=== PATIENT | female | born 1935 | race Asian ===

== ENCOUNTER 2024-08-10 18:55 | Inpatient (IN) | payer MEDICARE, MEDICAID, SELFPAY ==
[2024-08-10 19:35] VITALS: BP 116/71; PULSE 121; RESP 18; TEMP 36.6; O2SAT 98
[2024-08-10 19:37] VITALS: BMI 19.1
--- NOTE | 2024-08-10 20:05 | PD.EDRME ---
Rapid Medical Screening Exam RME Arrival date/time: 08/10/24 18:55 Chief Complaint: Weakness Time Seen by Provider: 08/10/24 19:50 Vital signs: Vital Signs Temperature 98 F 08/10/24 19:35 Pulse Rate 121 H 08/10/24 19:35 Respiratory Rate 18 08/10/24 19:35 Blood Pressure 116/71 08/10/24 19:35 Pulse Oximetry (%) 98 08/10/24 19:35 Oxygen Delivery Method Room Air 08/10/24 19:35 Vital signs reviewed by provider: Yes RME Narrative: 88-year-old female brought in by granddaughters for evaluation of generalized weakness x 5 days. She reports recent onset jaundice of skin and decreased eating over the last several months. Denies rectal bleeding and hematochezia. Patient currently lives at home with her and nephew. Patient's granddaughter states the family has discussed moving her to a care facility.
--- NOTE | 2024-08-10 20:07 | XR_ITS ---
Examination: PA lateral chest 2 views Technique: Upright PA lateral chest 2 views Exam date and time: August 10, 20242032 hrs. Indications: Weakness nausea today Findings: Significant parenchymal disease in the right middle lobe Normal heart size No pulmonary edema Mild hyperexpansion Impression: Significant parenchymal disease right middle lobe, consider pneumonia, pulmonary scarring, clinical correlation advised
[2024-08-10 20:31] LABS: Basophils % (Auto) 1 % (0-2.5); Eosinophils % (Auto) 1 % (0-10); Hematocrit 32.3 % (36.0-46.0); Hemoglobin 10.3 g/dL (12.0-16.0); Immature Granulocytes % (Auto) 1 % (0-0); Immature Granulocytes Auto 0.02 Thou/mm3 (0.00-0.00); Lymphocytes # (Auto) 0.9 Thou/mm3 (1.0-4.8); Lymphocytes % (Auto) 40 % (10-50); Mean Corpuscular HGB Conc 31.9 g/dl (31.0-37.0); Mean Corpuscular Hemoglobin 31.8 pg (25.0-35.0); Mean Corpuscular Volume 100 fL (80-100); Monocytes # (Auto) 0.1 Thou/mm3 (0.0-0.8); Monocytes % (Auto) 5 % (0-12); Neutrophils # (Auto) 1.2 Thou/mm3 (1.8-7.7); Neutrophils % (Auto) 53 % (37-80); Nucleated Red Blood Cell % 5 /100 WBC (0); RDW Standard Deviation 88.3 fL (36.4-46.3); Red Blood Count 3.24 Miln/mm3 (4.00-5.20)
[2024-08-10 20:34] LABS: Platelet Count 64 Thou/mm3 (140-440); White Blood Count 2.2 Thou/mm3 (3.6-11.0)
[2024-08-10 20:46] LABS: Partial Thromboplastin Time 25.2 Seconds (22.0-36.0); Prothrombin Time 11.2 Seconds (9.0-12.2)
[2024-08-10 20:56] LABS: B-Type Natriuretic Peptide 56 pg/mL (0-100)
[2024-08-10 21:00] LABS: Alanine Aminotransferase 20 U/L (10-49); Albumin, Serum 2.4 gm/dL (3.4-4.8); Albumin/Globulin Ratio 0.6 (1.2-2.2); Alkaline Phosphatase 67 U/L (46-116); Anion Gap 7 (7-16); Aspartate Amino Transferase 81 U/L (0-34); BUN/Creatinine Ratio 18 Ratio (12-20); Bilirubin,Total 0.6 mg/dL (0.3-1.2); Blood Urea Nitrogen 18 mg/dL (9-23); Calcium 8.2 mg/dL (8.3-10.6); Calcium (Corrected) 9.5 mg/dL (8.5-10.1); Carbon Dioxide 25.2 mMol/L (20.0-31.0); Chloride 107 mMol/L (98-107); Estimated Creatinine Clearance 27.8 mL/min (>60); Globulin 3.9 gm/dL (2.3-3.5); Glucose 89 mg/dL (74-106); Magnesium 2.3 mg/dL (1.6-2.6); Osmolality,Calculated 278 (275-295); Sodium 139 mMol/L (136-145); Total Protein 6.3 gm/dL (5.7-8.2); eGFR 55 See Note
[2024-08-10 21:03] LABS: Troponin I 0.046 ng/mL (0.0-0.045)
[2024-08-10 21:04] LABS: Slide Review Platelets confirmed
[2024-08-10 22:04] VITALS: BP 128/83; PULSE 82; RESP 18; TEMP 37.1; O2SAT 100
--- NOTE | 2024-08-10 22:26 | PD.EDWEAK ---
ED Weakness RME/HPI General Chief complaint: Weakness Stated complaint: weakness, nausea Time Seen by Provider: 08/10/24 19:50 Arrival date/time: 08/10/24 18:55 RME / HPI RME / HPI Narrative: 88-year-old female brought in by granddaughters for evaluation of generalized weakness x 5 days. She reports recent onset jaundice of skin and decreased eating over the last several months. Denies rectal bleeding and hematochezia. Patient currently lives at home with her and nephew. Patient's granddaughter states the family has discussed moving her to a care facility. ---- Dr. Chun's Main ED Evaluation: 88yo female with pmhx colon CA for over 10 years on Sunitinib Malate (unknown dose) BIB her granddaughter presents to the ED for a chief complaint of generalized weakness for the last two months. Granddaughter states the patient has had weakness for the last 2 months. She states she had outpatient labs done today, reporting she began having worsening generalized weakness and appeared more yellow than usual, so she came in for evaluation. Granddaughter endorses associated nausea, decreased appetite, and one episode of bright red loose stools on Saturday (08/08/24). She denies any abdominal pain, sweating, shortness of breath, palpitations, diarrhea, fever, headache, UTI symptoms, dizziness or any other associated symptoms. Denies any falls, injuries or loss of consciousness. Denies any tobacco or alcohol use. No known allergies. Related Data Home Medications ?Medication ?Instructions ?Recorded ?Confirmed nilotinib 200 mg capsule (Tasigna) 200 mg PO BID 12/20/21 04/03/24 Allergies Allergy/AdvReac Type Severity Reaction Status Date / Time No Known Allergies Allergy Verified 08/10/24 18:56 Review of Systems Review of Systems Systems Reviewed: All systems reviewed, normal except as documented Narrative Review of Systems: Gen: No fever, no chills, no weight loss, + decreased appetite EYES: No discharge, no visual changes, no pain HEENT: No ear pain, no congestion, no sore throat PULM: No shortness of breath, no cough, no congestion CV: No chest pain, no dyspnea on exertion, no palpitations GI: + nausea, no vomiting, no diarrhea, no pain, no constipation : No frequency, no urgency, no dysuria Musc/skel: No joint pain, no back pain Skin: No rash. Warm and dry. + jaundice Psyc: No hallucinations, no depression Heme/Lymph: No easy bleeding or bruising tendencies Neuro: + weakness, no headache ED Exam Narrative Physical exam: GEN. APPEARANCE: Patient is alert awake oriented to person and place under no distress, is cachetic and very debilitated. VITALS: All vitals were reviewed and the pulse ox is 100% on room air, which is normal according to my interpretation. HEENT: Normocephalic, atraumatic and nontender. Pupils are equal and reactive to light and accommodation. Oral mucosa are dry and pale. No icterus. NECK: Supple, nontender, no meningismus, no JVD. CHEST: Nontender on palpation, no deformity and no crepitus. CARDIOVASCULAR: Heart regular rhythm no murmur or gallop rub or extra beats; not tachycardic. LUNGS: Clear to auscultation bilaterally with symmetrical chest rise. No laboring tachypnea or wheezing. No intercostal subcostal retraction. No rales and no rhonchi. ABDOMEN: Soft, flat, nontender at all, no guarding or rebound tenderness. Questionable mass at the LUQ area, but there's no tenderness, guarding, rebound tenderness or distention. GENITALIA: Not examined. 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 Brownish watery stools, guaiac is strongly positive. EXTREMITIES: Nontender. No edema. No cyanosis. Patient is able to move all 4 extremities well. SKIN: Warm and dry, no rashes noted. MUSCULOSKELETAL: No lumbar or midline bony tenderness. There is no CVA tenderness. No paraspinal muscle spasm or tenderness. NEURO: Cranial nerves II through XII grossly intact. There is no focalization. GCS is 15. PSYCHIATRIC: Patient is in normal mood and affect, cooperative. LYMPHATICS: No major lymphadenopathy noted. Course Course Course Narrative: CXR is ordered for determining the etiology of weakness. Quality Measures none Orders Category Date Time Status Bedside COVID-19 Antigen Test NOW Care 08/10/24 20:56 Active Bedside Influenza A&B Antigen Test NOW Care 08/10/24 20:56 Completed EKG (ED ONLY) *Do not use* NOW Care 08/10/24 20:07 Completed Melissa [Urinary Catheter] QS Care 08/10/24 23:44 Active EKG (ED Only) Stat Exams 08/10/24 20:07 Ordered XR chest 2V Stat Exams 08/10/24 20:07 Completed B-Type Natriuretic Peptide Stat Lab 08/10/24 20:23 Completed CBC Stat Lab 08/10/24 20:23 Completed Comprehensive Metabolic Panel Stat Lab 08/10/24 20:23 Completed Drug Screen,Urine Stat Lab 08/10/24 23:43 Completed Magnesium Stat Lab 08/10/24 20:23 Completed Occult Blood, Stool (LAB) Stat Lab 08/10/24 23:06 Completed Partial Thromboplastin Time Stat Lab 08/10/24 20:23 Completed Prothrombin Time with INR Stat Lab 08/10/24 20:23 Completed Troponin I Stat Lab 08/10/24 20:23 Completed Urinalysis Stat Lab 08/10/24 23:48 Completed Vital Signs Vital signs: Vital Signs Temperature 98 F 08/10/24 19:35 Pulse Rate 121 H 08/10/24 19:35 Respiratory Rate 18 08/10/24 19:35 Blood Pressure 116/71 08/10/24 19:35 Pulse Oximetry (%) 98 08/10/24 19:35 Oxygen Delivery Method Room Air 08/10/24 19:35 Procedures -ED EKG Interpretation #1: Date of EK08/10/24 Rate: 138 Interpretation: Interpreted by me EKG Impression: Normal axis, Atrial fibrillation and Non-specific ST-T Additional EKG comment: A-fib with RVR. This EKG, compared with her previous ones, shows a new onset atrial fibrillation which was not present in the past. Weakness MDM Narrative MDM Narrative:: Scribe Attestation: 08/10/24 - Hui Brooke am scribing for and in the presence of Dr. Chun. Patient was brought in by her granddaughter, who is a RN here in our emergency room, stating that her grandma passed bright red blood from her rectum 2 days ago once only. She also says that her grandmother is very weak for the last 2 months on and off has been in the emergency room but never admitted to the hospital yet. Otherwise, the patient denies any chest pain or chest palpitations and no sweating or shortness of breath. She was nauseated earlier but no vomiting or diarrhea. There was no melena. She denies any fever chills or any abdominal pain. She denies any headache or dizziness. She denies UTI symptoms. She denies any fall or injuries or loss of consciousness. Patient has past medical history of anemia and history of colon cancer for over 10 years. She is on some kind of an oral chemotherapy as a maintenance dose. Patient is not on blood thinners. She did have blood transfusion in the recent past. Looking at her old records, patient was here on 07/27/2024 the last time and her troponin at that time was 0.038; today, her troponin is 0.046 but her EKG shows that she is in A-fib with RVR, which is new compared to her old records. 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 Provider Notation: Although this document has been carefully reviewed, there may still be some phonetic and other typographical errors. These errors are purely grammatical due to imperfections in the software program and should not be construed in any way to compromise the substance of the patient's medical care during this visit. Patient data External records reviewed:: [facility] previous records (Per chart review, patient was seen here on 07/27/24 for anemia) Clinical information provided by:: family (history obtained by the patient's granddaughter) Social determinants that could affect healthcare access:: none Patient has the following chronic illnesses:: colon CA, gastric malignancy s/p chemotherapy with oncological f/u at [facility] How is presenting disease/condition affected by chronic disease/condition?: exacerbated by Evaluation data The following diagnostics were reviewed and interpreted by me:: lab results, radiology exam(s) and EKG tracing(s) Lab and/or radiology exams considered but not ordered:: none Interpretation Summary: See above under MDM narrative. ---- [facility] Report Signed Patient: AJCOBO MCNEAL [facility]. Record#: [id number] Birthdate: 1935 Age/Sex: 88 / F Location: [facility] Attending Dr: Ordering Physician: Wesley Perez PA-C Date of Service: 08/10/24 Procedure(s): XR chest 2V Accession Number(s): [id number] cc: Wesley Perez PA-C; Ruddy Britton MD; NO PRIMARY/FAMILY,PHYSICIAN~ Examination: PA lateral chest 2 views Technique: Upright PA lateral chest 2 views Exam date and time: August 10, 2024 2033 hrs. Indications: Weakness nausea today Findings: Significant parenchymal disease in the right middle lobe Normal heart size No pulmonary edema Mild hyperexpansion Impression: Significant parenchymal disease right middle lobe, consider pneumonia, pulmonary scarring, clinical correlation advised Dictated By: Ruddy Britton MD Signed By: <Electronically signed by Ruddy Britton MD in OV> 08/10/242123 Medications / Prescriptions Medications or Prescriptions considered but not ordered:: none Medication administrations:: none Consultations Consultation(s) initiated? (list below): Yes Diagnosis Weakness Differential Diagnosis: other (abdominal tumor, colon CA, stomach CA, GI bleed, new onset aFib) Most likely diagnosis given after review of the tests above:: see below Admission Indicated Admission indicated?: indicated Admission Request Was there a request for admission?: Yes Admission Attestation Admission request attestation: Discussed case with [] from Hospitalist service regarding admission. Discussed patients ED course, exam findings, labs, and radiology results. The Hospitalist [agrees,declines] to accept the patient for admission. Disposition Plan Disposition Plan: Admit Critical Care Time Critical Care Time Critical Care Time: Yes Total Critical Care Time (min.): 45 Attestation: The high probability of sudden, clinically significant deterioration in the patient?s condition required the highest level of my preparedness to intervene urgently. The services I provided to this patient were to treat and/or prevent clinically significant deterioration. Services included the following: chart data review, reviewing nursing notes and/or old charts, documentation time, customer care voice consultant collaboration regarding findings and treatment options, medication orders and management, direct patient care, vital sign assessments and ordering, interpreting and reviewing diagnostic studies and lab tests. Aggregate critical care time includes only time during which I was engaged in work directly related to the patient?s care, as described above, whether at bedside or elsewhere in the Emergency Department. It did not include time spent performing other reported procedures or the services of residents, students, nurses or physician assistants. Discharge Plan Prescriptions/Referrals Prescriptions/Med Rec: No Action Tasigna 200 mg Capsule 200 mg PO BID Referrals: No Primary/Family,Physician [Primary Care Provider] - In 1 week Problem List Clinical Impression: Gastrointestinal bleeding, lower, Thrombocytopenia, Leukopenia, Atrial fibrillation with RVR, Atrial fibrillation, new onset Patient/Caregiver Discharge Instructions Print Language: Vietnamese
[2024-08-10 23:44] VITALS: BP 129/84; PULSE 114; RESP 19; TEMP 36.8; O2SAT 97
[2024-08-10 23:45] LABS: OBS Card Lot # 23001; OBS Performed By dotek; OBS QC OK? Yes; Occult Blood, Stool Positive (Negative)
[2024-08-10 23:47] LABS: OBS Developer Lot # 23003
[2024-08-10 23:48] VITALS: BP 121/77; PULSE 96; RESP 16; O2SAT 97
[2024-08-10 23:58] LABS: Collection Type, Urine Clean Catch
[2024-08-11] VITALS (21 sets, daily range): BP systolic 94–157; BP diastolic 49–96; PULSE 68–97; RESP 16–19; TEMP 36.2–37.1; O2SAT 95–100; BMI 19.2
[2024-08-11 00:03] LABS: Bilirubin,Urine Negative (Negative); Blood,Urine Negative (Negative); Clarity,Urine Clear (Clear/Hazy); Color,Urine Drk-Yellow (Lt Yel-Yel); Glucose, Urine Negative (Negative); Hyaline Casts,Urine < 1 /hpf (0-1); Ketones,Urine Negative (Negative); Leukocyte Esterase,Urine Negative (Negative); Nitrite,Urine Negative (Negative); Protein,Urine Trace (Neg - Trace); RBC,Urine 3 /hpf (0-3); Specific Gravity,Urine 1.023 (1.001-1.035); Squamous Epithelial Cell,Urine < 1 /hpf (0-5); WBC,Urine 2 /hpf (0-5)
[2024-08-11 00:09] LABS: Amphetamine/Methamp Scrn,U Negative (Negative); Barbiturate Screen,Urine Negative (Negative); Benzodiazepines Screen,Urine Negative (Negative); Benzoylecgonine Screen, Ur Negative (Negative); Fentanyl Screen,Urine Negative (Negative); Opiate Screen,Urine Negative (Negative); THC Screen,Urine Negative (Negative)
--- NOTE | 2024-08-11 02:24 | ESHP_ITS ---
<Statement entered by Gerardo Meza MD - 08/11/24 09:12> I was present for the essential components of the history, physical examination, diagnosis, and treatment plan with the resident. I have reviewed the documentation, discussed the case with the resident and agree with the patient's care as documented by the resident. High risk complex - 75 mins. Gerardo Meza MD Documentation for date of: 08/11/24 HPI History of Present Illness History of present illness: Stefani Harris is a Tagalog-speaking 88-year-old female with a past medical history of gastric cancer status post partial gastrectomy and currently on sunitinib malate chemotherapy (previously on nilotinib) who presents to the ED for bright red blood per rectum. Son present at bedside to help provide additional history and translate. A few days ago [id number] noticed bright red blood in stool while caring for patient, and was only reported incident. Patient has had multiple ED visits within the last few months for abnormal hemoglobin levels but no reported episodes of hematochezia or melena. Otherwise, patient noted to have generalized weakness and decreased appetite. Per son, patient's diet consist mostly of Ensure. In ED, hemoglobin noted to be 10.3 and FOBT positive. Given that in-house engine cleaner will not be present until , efforts for transfer were initiated by family declined. Spoke to son at bedside and discussed options, shows that transfer would allow patient to have colonoscopy sooner and if decision was made to stay then soonest colonoscopy would be on and until then patient will be monitored. Son understood options and decided to stay until in-house engine cleaner can evaluate patient. ED course: HR 121 -> 89, otherwise vitals stable Hemoglobin stable, 10.3 (within last ~3 months, average hgb 8-9). Troponin 0.046, will trend. AST mildly elevated, 81. CXR: Significant parenchymal disease in right middle lobe PMHx: gastric cancer Medications: sunitinib malate SHx: denies smoking, alcohol, illicit drug use PSHx: partial gastrectomy Review of Systems Review of Systems Systems Reviewed: All systems reviewed, normal except as documented Exam Vital Signs Temp Pulse Resp BP Pulse Ox O2 Del Method 98.3 F 89 16 128/67 98 Room Air 08/10/24 23:44 08/11/24 02:00 08/11/24 02:00 08/11/24 02:00 08/11/24 02:00 08/10/24 23:44 Narrative Exam General: AOx3, no acute distress, able to speak full sentences HEENT: NC/AT, mucous membranes moist, bilateral sclera anicteric Cardiovascular: regular rate and rhythm, S1/S2 present, no murmurs appreciated Pulmonary: clear to auscultation bilaterally, no rales/rhonchi/wheezes Abdominal: soft, non-tender, non-distended, no rebound/guarding, normal bowel sounds present Musculoskeletal: normal ROM, no peripheral edema Skin: warm and dry, intact, no rashes Neuro: CN II-XII intact, no focal deficits Results: Labs 08/11/24 03:20 08/11/24 03:20 Labs: Short CBC 08/10/24 Range/Units 20:23 WBC 2.2 L (3.6-11.0) Thou/mm3 Hgb 10.3 L (12.0-16.0) g/dL Hct 32.3 L (36.0-46.0) % Plt Count 64 L (140-440) Thou/mm3 BMP 08/10/24 20:23 Sodium 139 Potassium 4.0 Chloride 107 Carbon Dioxide 25.2 BUN 18 Creatinine 1.0 Glucose 89 Calcium 8.2 L Cardiac Enzymes 08/10/24 Range/Units 20:23 Troponin I 0.046 H* (0.0-0.045) ng/mL Liver Function 08/10/24 Range/Units 20:23 Total Bilirubin 0.6 (0.3-1.2) mg/dL AST 81 H (0-34) U/L ALT 20 (10-49) U/L Alkaline Phosphatase 67 (46-116) U/L Albumin 2.4 L (3.4-4.8) gm/dL Urine 08/10/24 Range/Units 23:48 Urine Color Drk-Yellow A (Lt Yel-Yel) Urine Clarity Clear (Clear/Hazy) Urine pH 6.0 (5.0-7.0) Ur Specific [place] 1.023 (1.001-1.035) Urine Protein Trace (Neg - Trace) Urine Glucose (UA) Negative (Negative) Quality Measures Quality Measures none Advance care planning discussed with:: patient Medications Home Medications and Allergies Home Medications ?Medication ?Instructions ?Recorded ?Confirmed ?Type nilotinib 200 mg capsule (Tasigna) 200 mg PO BID 12/20/21 08/11/24 History Allergies Allergy/AdvReac Type Severity Reaction Status Date / Time No Known Allergies Allergy Verified 08/10/24 18:56 Visit Medications Acetaminophen (Acetaminophen 325 Mg Tablet) 650 mg PO Q6H PRN PRN Reason: PAIN OR FEVER > 101 Stop: 09/10/24 02:09 Sodium Chloride (Ns) 1,000 mls @ 75 mls/hr IV .[id number] ONE Stop: 08/11/24 15:31 Ondansetron HCl (Ondansetron Inj 2 Mg/Ml Inj 2 Ml) 4 mg IV Q6H PRN; Protocol PRN Reason: NAUSEA OR VOMITING Stop: 09/10/24 02:09 Pantoprazole Sodium (Pantoprazole Inj 40 Mg Vial) 40 mg IVP Q12HR LAKESHA Stop: 09/10/24 08:59 Assessment & Plan Plan Stefani Harris is a Tagalog-speaking 88-year-old female with a past medical history of gastric cancer status post partial gastrectomy and currently on sunitinib malate chemotherapy (previously on nilotinib) who is admitted for management and work-up for GI bleed. #GI bleed, upper versus lower #Normocytic anemia, chronic Presents with 1 episode of bright red blood in stool setting of chronic anemia and generalized weakness. Initial hemoglobin 10.5, downtrending to 9.2. FOBT positive. ? GI consulted, appreciate recommendations ? Will be back 08/13, family understands ? N.p.o. now ? Pending speech swallow screen ? Dietitian referral given decreased p.o. intake ? Monitor H&H ? Pantoprazole 40 mg IV twice daily #Elevated troponins #NSTEMI type II, demand ischemia Initial troponin 0.046 -> 0.049, likely due to chronic anemia. ? Trend troponins #Atrial fibrillation, new onset No history of atrial fibrillation, [id number] 3. Will defer anticoagulation given GI bleed. #History of gastric cancer #Leukopenia #Thrombocytopenia Per son, patient currently takes sunitinib malate and previously on nilotinib (Tasigna). Pending med rec. Hospital management: Disposition: 2-3 hospital nights Fluids: NS at 75 mL/hr Diet: NPO, pending speech swallow evaluation Lines: peripheral DVT prophylaxis: SCDs GI prophylaxis: pantoprazole 40 mg IV BID CODE STATUS: full code ----- Plan discussed with attending physician Dr. Derrick Leal MD PGY-1 Internal Medicine
[2024-08-11] MEDS: SODIUM CHLORIDE 0.9% 1000 ML 1,000 ML 75 ML IV (02:50)
[2024-08-11 03:31] LABS: Basophils % (Auto) 0 % (0-2.5); Eosinophils % (Auto) 1 % (0-10); Hematocrit 27.6 % (36.0-46.0); Hemoglobin 9.2 g/dL (12.0-16.0); Immature Granulocytes % (Auto) 2 % (0-0); Immature Granulocytes Auto 0.05 Thou/mm3 (0.00-0.00); Lymphocytes # (Auto) 1.2 Thou/mm3 (1.0-4.8); Lymphocytes % (Auto) 46 % (10-50); Mean Corpuscular HGB Conc 33.3 g/dl (31.0-37.0); Mean Corpuscular Hemoglobin 32.9 pg (25.0-35.0); Mean Corpuscular Volume 99 fL (80-100); Monocytes # (Auto) 0.2 Thou/mm3 (0.0-0.8); Monocytes % (Auto) 6 % (0-12); Neutrophils # (Auto) 1.1 Thou/mm3 (1.8-7.7); Neutrophils % (Auto) 45 % (37-80); Nucleated Red Blood Cell % 4 /100 WBC (0)
[2024-08-11 03:33] LABS: Platelet Count 50 Thou/mm3 (140-440); White Blood Count 2.5 Thou/mm3 (3.6-11.0)
[2024-08-11 03:52] LABS: Alanine Aminotransferase 17 U/L (10-49); Albumin, Serum 2.2 gm/dL (3.4-4.8); Albumin/Globulin Ratio 0.6 (1.2-2.2); Alkaline Phosphatase 61 U/L (46-116); Anion Gap 2 (7-16); Aspartate Amino Transferase 66 U/L (0-34); BUN/Creatinine Ratio 19 Ratio (12-20); Bilirubin,Total 0.6 mg/dL (0.3-1.2); Blood Urea Nitrogen 19 mg/dL (9-23); Calcium (Corrected) 9.4 mg/dL (8.5-10.1); Carbon Dioxide 29.5 mMol/L (20.0-31.0); Chloride 108 mMol/L (98-107); Estimated Creatinine Clearance 27.8 mL/min (>60); Globulin 3.5 gm/dL (2.3-3.5); Glucose 76 mg/dL (74-106); Magnesium 2.3 mg/dL (1.6-2.6); Osmolality,Calculated 278 (275-295); Phosphorous 3.1 mg/dL (2.4-5.1); Sodium 139 mMol/L (136-145); Total Protein 5.7 gm/dL (5.7-8.2); eGFR 55 See Note
[2024-08-11 03:53] LABS: Troponin I 0.049 ng/mL (0.0-0.045)
--- NOTE | 2024-08-11 10:43 | PCS.ST ---
Swallow Evaluation completed in the ED. See report for details. Functional delgado-pharyngeal swallow. Baseline soft diet per pt/family. No further ST services warranted at this time.
[2024-08-11 11:51] LABS: Troponin I 0.043 ng/mL (0.0-0.045)
[2024-08-11] MEDS: PANTOPRAZOLE INJ 40 MG VIAL IVP ×2 (12:45→20:11)
[2024-08-11 14:20] LABS: Hematocrit 28.4 % (36.0-46.0); Hemoglobin 9.4 g/dL (12.0-16.0)
--- NOTE | 2024-08-11 15:32 | PC.CC ---
Pt Stefani Harris is an 88 yr old female, admitted to hospitalist services for GI bleed. PEDIATRICIAN MANAGING [employer] CC met with pt at bedside. At time of encounter pts daughter Angie Harris [phone], is at bedside and provided pts hx. Pt is noted to be alert and oriented. Pt daughter expressed understanding admission orders and plan of care. Pts daughter able to confirm demographic information. Pt is from home [id number], where she lives with her spouse. Pts children Daughter Angie and son Luis Harris [phone] are surrogate DMs. At baseline pt is independent with ambulation and ADLS. Due to weakness at this time pt has been requiring assist with both ambulation and ADLs. Pt is not diabetic and is not on dialysis. Pt does not require supplemental O2. Pt is followed by Dr. Gopal Dawson for primary care. Pt is followed by oncologist at [facility]. Per daughter at time of D/c pt will return home with family transporting. Plan is for pt to D/c to her son's residence. PEDIATRICIAN MANAGING [employer] CC did not discuss Advance Directive at this time.
--- NOTE | 2024-08-11 17:45 | ESPR_ITS ---
<Statement entered by Joaquin Zambrano MD - 08/11/24 18:29> Senior Resident Attestation: I supervised/discussed management plan with product management internship physician Dr. Vu, and was involved in the care of this patient. I personally saw and examined the patient and discussed the assessment and plan with the entire medicine team, including my attending. I agree with the assessment and plan as documented. Patient's care was discussed with attending physician, Dr. Ashley. Joaquin Zambrano MD PGY-2. Documentation for date of: 08/11/24 Subjective Subjective Interval history: 08/11: Patient is an overnight admission. Patient is seen and examined at at bedside. Patient's [place] language is TagUnfold Patient seems a bit confused, although translation services were used however patient appeared to be very confused to why she was in the hospital. She stated that her children dropped her off and she has no idea why. Patient denied any chest pain shortness of breath, nausea, vomiting, abdominal pain. Patient had no complaints. Exam Vital Signs Temp Pulse Resp BP Pulse Ox O2 Del Method 98.7 F 76 17 107/64 99 Room Air 08/11/24 17:31 08/11/24 17:31 08/11/24 17:31 08/11/24 17:31 08/11/24 17:31 08/11/24 17:31 Narrative Exam GENERAL: A&Ox3 . Awake, Not in acute distress NEURO: belt cutter grossly intact, moves extremities x4 HEENT: Atraumatic, Normocephalic. mucous membranes moist. Eyes open, symmetrical, & clear HEART: Normal Heart Sounds LUNGS: Clear to auscultation with no wheezing or crackles. ABDOMEN: soft, non-distended, non-tender, bowel sounds heard, no guarding or rebound tenderness SKIN: No Rash or ecchymoses EXTREMITIES: No edema, tenderness, able to move all 4 extremities, pedal pulses palpated Objective Labs 08/13/24 04:50 08/13/24 04:50 Labs: Laboratory Results - last 24 hr 08/10/24 08/10/24 08/10/24 20:23 23:06 23:43 WBC 2.2 L RBC 3.24 L Hgb 10.3 L Hct 32.3 L MCV 100 MCH 31.8 MCHC 31.9 RDW Std Deviation 88.3 H Plt Count 64 L Neut % (Auto) 53 Lymph % (Auto) 40 [place] % (Auto) 5 Eos % (Auto) 1 Baso % (Auto) 1 Neut # (Auto) 1.2 L Lymph # (Auto) 0.9 L [place] # (Auto) 0.1 Eos # (Auto) 0.0 Baso # (Auto) 0.0 Immature Gran # (Auto) 0.02 H Absolute Nucleated RBC 0.10 H Immature Gran % 1 H Nucleated RBC % 5 H PT 11.2 INR 1.0 APTT 25.2 Sodium 139 Potassium 4.0 Chloride 107 Carbon Dioxide 25.2 Anion Gap 7 BUN 18 Creatinine 1.0 Estim Creat Clear Calc 27.8 L eGFR 55 L BUN/Creatinine Ratio 18 Glucose 89 Calculated Osmolality 278 Calcium 8.2 L Corrected Calcium 9.5 Phosphorus Magnesium 2.3 Total Bilirubin 0.6 AST 81 H ALT 20 Alkaline Phosphatase 67 Troponin I 0.046 H* B-Natriuretic Peptide 56 Total Protein 6.3 Albumin 2.4 L Globulin 3.9 H Albumin/Globulin Ratio 0.6 L Ur Collection Type Urine Color Urine Clarity Urine pH Ur Specific [place] Urine Protein Urine Glucose (UA) Urine Ketones Urine Blood Urine Nitrite Urine Bilirubin Urine Urobilinogen (Auto) Ur Leukocyte Esterase Urine RBC Urine WBC Ur Squamous Epith Cells Urine Bacteria Hyaline Casts Stool Occult Blood Positive A Urine Opiates Screen Negative Urine Fentanyl Screen Negative Ur Barbiturates Screen Negative U Amphetamin/Meth Scrn Negative U Benzodiazepines Scrn Negative U Cocaine Metab Screen Negative U Marijuana (THC) Screen Negative Misc Test Result Platelets confirmed 08/10/24 08/11/24 08/11/24 23:48 03:20 10:56 WBC 2.5 L RBC 2.80 L Hgb 9.2 L Hct 27.6 L MCV 99 MCH 32.9 MCHC 33.3 RDW Std Deviation 87.0 H Plt Count 50 L D Neut % (Auto) 45 Lymph % (Auto) 46 [place] % (Auto) 6 Eos % (Auto) 1 Baso % (Auto) 0 Neut # (Auto) 1.1 L Lymph # (Auto) 1.2 [place] # (Auto) 0.2 Eos # (Auto) 0.0 Baso # (Auto) 0.0 Immature Gran # (Auto) 0.05 H Absolute Nucleated RBC 0.10 H Immature Gran % 2 H Nucleated RBC % 4 H PT INR APTT Sodium 139 Potassium 4.0 Chloride 108 H Carbon Dioxide 29.5 Anion Gap 2 L BUN 19 Creatinine 1.0 Estim Creat Clear Calc 27.8 L eGFR 55 L BUN/Creatinine Ratio 19 Glucose 76 Calculated Osmolality 278 Calcium 8.0 L Corrected Calcium 9.4 Phosphorus 3.1 Magnesium 2.3 Total Bilirubin 0.6 AST 66 H ALT 17 Alkaline Phosphatase 61 Troponin I 0.049 H* 0.043 B-Natriuretic Peptide Total Protein 5.7 Albumin 2.2 L Globulin 3.5 Albumin/Globulin Ratio 0.6 L Ur Collection Type Clean Catch Urine Color Drk-Yellow A Urine Clarity Clear Urine pH 6.0 Ur Specific [place] 1.023 Urine Protein Trace Urine Glucose (UA) Negative Urine Ketones Negative Urine Blood Negative Urine Nitrite Negative Urine Bilirubin Negative Urine Urobilinogen (Auto) 2.0 Ur Leukocyte Esterase Negative Urine RBC 3 Urine WBC 2 Ur Squamous Epith Cells < 1 Urine Bacteria None Hyaline Casts < 1 Stool Occult Blood Urine Opiates Screen Urine Fentanyl Screen Ur Barbiturates Screen U Amphetamin/Meth Scrn U Benzodiazepines Scrn U Cocaine Metab Screen U Marijuana (THC) Screen Misc Test Result 08/11/24 14:08 WBC RBC Hgb 9.4 L Hct 28.4 L MCV MCH MCHC RDW Std Deviation Plt Count Neut % (Auto) Lymph % (Auto) [place] % (Auto) Eos % (Auto) Baso % (Auto) Neut # (Auto) Lymph # (Auto) [place] # (Auto) Eos # (Auto) Baso # (Auto) Immature Gran # (Auto) Absolute Nucleated RBC Immature Gran % Nucleated RBC % PT INR APTT Sodium Potassium Chloride Carbon Dioxide Anion Gap BUN Creatinine Estim Creat Clear Calc eGFR BUN/Creatinine Ratio Glucose Calculated Osmolality Calcium Corrected Calcium Phosphorus Magnesium Total Bilirubin AST ALT Alkaline Phosphatase Troponin I B-Natriuretic Peptide Total Protein Albumin Globulin Albumin/Globulin Ratio Ur Collection Type Urine Color Urine Clarity Urine pH Ur Specific [place] Urine Protein Urine Glucose (UA) Urine Ketones Urine Blood Urine Nitrite Urine Bilirubin Urine Urobilinogen (Auto) Ur Leukocyte Esterase Urine RBC Urine WBC Ur Squamous Epith Cells Urine Bacteria Hyaline Casts Stool Occult Blood Urine Opiates Screen Urine Fentanyl Screen Ur Barbiturates Screen U Amphetamin/Meth Scrn U Benzodiazepines Scrn U Cocaine Metab Screen U Marijuana (THC) Screen Misc Test Result Quality Measures Quality Measures none Advance care planning discussed with:: other Assessment & Plan Assessment Current Active Medications: Generic Name Dose Route Start Last Admin Trade Name Priyanka PRN Reason Stop Dose Admin Acetaminophen 650 mg 08/11/24 02:10 Acetaminophen 325 Mg Tablet PO 09/10/24 02:09 Q6H PRN PAIN OR FEVER > 101 Ondansetron HCl 4 mg 08/11/24 02:10 Ondansetron Inj 2 Mg/Ml Inj 2 Ml IV 09/10/24 02:09 Q6H PRN NAUSEA OR VOMITING Protocol Pantoprazole Sodium 40 mg 08/11/24 09:00 08/11/24 12:45 Pantoprazole Inj 40 Mg Vial IVP 09/10/24 08:59 40 mg Q12HR LAKESHA Administration Plan Ms. Harris is a Tagalog-speaking 88-year-old female with a past medical history of gastric cancer status post partial gastrectomy and currently on sunitinib malate chemotherapy (previously on nilotinib) who presents to the ED for bright red blood per rectum for 2 days with generalized weakness and decreased appetite. # Symptomatic anemia #GI bleed, likely lower -Presents with 1 episode of bright red blood in stool setting of chronic anemia and generalized weakness. -Initial hemoglobin 10.5, downtrending to 9.2. -FOBT positive. Plan: ? GI consulted, appreciate recommendations? Will be back 08/13, family understands ? Dysphagia 2 diet? After pending speech swallow screen ? Dietitian referral given decreased p.o. intake ? Monitor H&H ? Pantoprazole 40 mg IV twice daily #Elevated troponins #NSTEMI type II, demand ischemia Initial troponin 0.046 -> 0.049, likely due to chronic anemia. ? Trend troponins #Atrial fibrillation, new onset No history of atrial fibrillation, [id number] 3. Will defer anticoagulation given GI bleed. #History of gastric cancer #Leukopenia #Thrombocytopenia Per son, patient currently takes sunitinib malate and previously on nilotinib (Tasigna). -Continue medications Hospital management: Disposition: 2-3 hospital nights Fluids: NS at 75 mL/hr Diet: Dysphagia2, after pending speech swallow screen Lines: peripheral DVT prophylaxis: SCDs GI prophylaxis: pantoprazole 40 mg IV BID CODE STATUS: full code Assessment and plan discussed with my senior resident Dr. Zambrano & attending physician Dr. Gabi Vu (PGY-1)- Internal medicine resident Attending Provider Attestation/Addendum 88-year-old female with history of gastric adenocarcinoma status post partial gastrectomy and currently on sunitinib chemotherapy who presented to the ER with complaints of generalized weakness and bright red blood per rectum found to have symptomatic anemia. Workup including FOBT was positive and patient also noted to have elevated troponin that is deemed to be NSTEMI type II secondary to demand ischemia and also new onset A-fib rate controlled however unable to anticoagulate at this now. Plan to continue monitoring pending GI input. I reviewed above note and agree with findings and plans. I have also personally examined the patient with medicine team and went over assessment and plan with medical team including product management internship and resident physician.
--- NOTE | 2024-08-11 18:21 | PC.NURSE ---
FAMILY WOULD LIKE HER ONCOLOGIST CALLED TO FOR HX REPORT AND TO BE AWARE OF HOSPITALIZATION. DR BOWEN ONCOLOGIST [facility] [phone]
[2024-08-11 19:33] LABS: Troponin I 0.041 ng/mL (0.0-0.045)
[2024-08-11 22:00] LABS: Hematocrit 25.4 % (36.0-46.0); Hemoglobin 8.4 g/dL (12.0-16.0)
[2024-08-12] VITALS: BP 117/72; PULSE 79; PULSE 90; RESP 18; TEMP 37.3; O2SAT 95
[2024-08-12 04:00] VITALS: BP 108/77; PULSE 72; PULSE 81; RESP 16; TEMP 36.1; O2SAT 96
[2024-08-12 05:34] LABS: Basophils % (Auto) 1 % (0-2.5); Eosinophils % (Auto) 2 % (0-10); Hematocrit 25.2 % (36.0-46.0); Immature Granulocytes % (Auto) 1 % (0-0); Immature Granulocytes Auto 0.01 Thou/mm3 (0.00-0.00); Lymphocytes # (Auto) 0.8 Thou/mm3 (1.0-4.8); Lymphocytes % (Auto) 40 % (10-50); Mean Corpuscular HGB Conc 32.5 g/dl (31.0-37.0); Mean Corpuscular Hemoglobin 32.3 pg (25.0-35.0); Mean Corpuscular Volume 99 fL (80-100); Monocytes # (Auto) 0.1 Thou/mm3 (0.0-0.8); Monocytes % (Auto) 5 % (0-12); Neutrophils # (Auto) 1.1 Thou/mm3 (1.8-7.7); Neutrophils % (Auto) 53 % (37-80); Nucleated Red Blood Cell # 0.08 Thou/mm3 (0.00-0.00); Nucleated Red Blood Cell % 4 /100 WBC (0); RDW Standard Deviation 87.1 fL (36.4-46.3); Red Blood Count 2.54 Miln/mm3 (4.00-5.20)
[2024-08-12 05:35] LABS: Hemoglobin 8.2 g/dL (12.0-16.0); Platelet Count 55 Thou/mm3 (140-440)
[2024-08-12 06:00] VITALS: BMI 17.1
[2024-08-12 06:16] LABS: Slide Review Platelets confirmed
[2024-08-12 06:42] LABS: Alanine Aminotransferase 13 U/L (10-49); Albumin, Serum 1.8 gm/dL (3.4-4.8); Albumin/Globulin Ratio 0.6 (1.2-2.2); Alkaline Phosphatase 55 U/L (46-116); Anion Gap 5 (7-16); Aspartate Amino Transferase 54 U/L (0-34); BUN/Creatinine Ratio 19 Ratio (12-20); Bilirubin,Total 0.5 mg/dL (0.3-1.2); Blood Urea Nitrogen 15 mg/dL (9-23); Calcium 7.5 mg/dL (8.3-10.6); Calcium (Corrected) 9.3 mg/dL (8.5-10.1); Carbon Dioxide 26.3 mMol/L (20.0-31.0); Chloride 111 mMol/L (98-107); Creatinine (Component) 0.8 mg/dL (0.6-1.3); Estimated Creatinine Clearance 30.9 mL/min (>60); Glucose 76 mg/dL (74-106); Osmolality,Calculated 282 (275-295); Potassium 3.9 mMol/L (3.4-5.1); Sodium 142 mMol/L (136-145); Total Protein 4.8 gm/dL (5.7-8.2); eGFR > 60 See Note
[2024-08-12 08:00] VITALS: BP 94/61; PULSE 72; PULSE 80; RESP 15; TEMP 37.2; O2SAT 96
[2024-08-12] MEDS: PANTOPRAZOLE INJ 40 MG VIAL IVP ×2 (08:59→20:28)
[2024-08-12] MEDS: SUNITINIB PO (09:00)
--- NOTE | 2024-08-12 11:50 | PC.NURSE ---
Dr. Vu aware that pt. family notified RN that pt. oncologist at [facility] wants to speak to care team here. Dr. vu provided with DrLou info per nurses note from ER. Dr. Vu states I will call this oncologist.
[2024-08-12 12:00] VITALS: BP 106/66; PULSE 68; PULSE 82; RESP 19; TEMP 37.3; O2SAT 97
--- NOTE | 2024-08-12 14:27 | PC.SS ---
Rounding note: pending Dr. Ledesma recommendations.
[2024-08-12 14:34] LABS: Hematocrit 25.4 % (36.0-46.0)
[2024-08-12 14:36] LABS: Hemoglobin 8.1 g/dL (12.0-16.0)
--- NOTE | 2024-08-12 14:49 | ESPR_ITS ---
<Statement entered by Joaquin Zambrano MD - 08/12/24 17:22> Senior Resident Attestation: I supervised/discussed management plan with internal review and audit compliance physician Dr. Vu, and was involved in the care of this patient. I personally saw and examined the patient and discussed the assessment and plan with the entire medicine team, including my attending. I agree with the assessment and plan as documented. Patient's care was discussed with attending physician, Dr. Ashley. Joaquin Zambrano MD PGY-2. Documentation for date of: 08/12/24 Subjective Subjective Interval history: 08/11: Patient is an overnight admission. Patient is seen and examined at at bedside. Patient's [place] language is Tag[place] Patient seems a bit confused, although translation services were used however patient appeared to be very confused to why she was in the hospital. She stated that her children dropped her off and she has no idea why. Patient denied any chest pain shortness of breath, nausea, vomiting, abdominal pain. Patient had no complaints. 08/12: No overnight events, patient is seen and examined at bedside. Patient seems to be more alert and less confused today. She continues to deny any complaints and knowledge of why she is in the hospital. Patient denies any chest pain or abdominal pain nausea or vomiting. Patient only had less than 5% of her breakfast and she says that she always only takes couple bites of her breakfast because she does not have an appetite. Patient did say that she also takes couple sips of the Ensure that her son brought for her. Patient states that her eyes are itchy and she has been scratching it which causes redness to her eyes. Patient has no other complaints Exam Vital Signs Temp Pulse Resp BP Pulse Ox O2 Del Method 99.1 F 68 19 106/66 97 Room Air 08/12/24 12:00 08/12/24 12:00 08/12/24 12:00 08/12/24 12:00 08/12/24 12:00 08/12/24 12:00 Narrative Exam GENERAL: A&Ox3 . Awake, Not in acute distress, elderly, thin appearing NEURO: etcher aircraft grossly intact, moves extremities x4 HEENT: Atraumatic, Normocephalic. mucous membranes moist. Eyes open, symmetrical, & clear HEART: Normal Heart Sounds LUNGS: Clear to auscultation with no wheezing or crackles. ABDOMEN: soft, non-distended, non-tender, bowel sounds heard, no guarding or rebound tenderness SKIN: No Rash or ecchymoses EXTREMITIES: No edema, tenderness, able to move all 4 extremities, pedal pulses palpated Objective Labs 08/13/24 04:50 08/13/24 04:50 Labs: Laboratory Results - last 24 hr 08/11/24 08/11/24 08/11/24 14:08 19:03 21:40 WBC RBC Hgb 9.4 L 8.4 L Hct 28.4 L 25.4 L MCV MCH MCHC RDW Std Deviation Plt Count Neut % (Auto) Lymph % (Auto) [place] % (Auto) Eos % (Auto) Baso % (Auto) Neut # (Auto) Lymph # (Auto) [place] # (Auto) Eos # (Auto) Baso # (Auto) Immature Gran # (Auto) Absolute Nucleated RBC Immature Gran % Nucleated RBC % Sodium Potassium Chloride Carbon Dioxide Anion Gap BUN Creatinine Estim Creat Clear Calc eGFR BUN/Creatinine Ratio Glucose Calculated Osmolality Calcium Corrected Calcium Total Bilirubin AST ALT Alkaline Phosphatase Troponin I 0.041 Total Protein Albumin Globulin Albumin/Globulin Ratio [facility] [place] Test Result 08/12/24 08/12/24 04:49 13:47 WBC 2.0 L RBC 2.54 L Hgb 8.2 L 8.1 L Hct 25.2 L 25.4 L MCV 99 MCH 32.3 MCHC 32.5 RDW Std Deviation 87.1 H Plt Count 55 L Neut % (Auto) 53 Lymph % (Auto) 40 [place] % (Auto) 5 Eos % (Auto) 2 Baso % (Auto) 1 Neut # (Auto) 1.1 L Lymph # (Auto) 0.8 L [place] # (Auto) 0.1 Eos # (Auto) 0.0 Baso # (Auto) 0.0 Immature Gran # (Auto) 0.01 H Absolute Nucleated RBC 0.08 H Immature Gran % 1 H Nucleated RBC % 4 H Sodium 142 Potassium 3.9 Chloride 111 H Carbon Dioxide 26.3 Anion Gap 5 L BUN 15 Creatinine 0.8 Estim Creat Clear Calc 30.9 L eGFR > 60 BUN/Creatinine Ratio 19 Glucose 76 Calculated Osmolality 282 Calcium 7.5 L Corrected Calcium 9.3 Total Bilirubin 0.5 AST 54 H ALT 13 Alkaline Phosphatase 55 Troponin I Total Protein 4.8 L Albumin 1.8 L Globulin 3.0 Albumin/Globulin Ratio 0.6 L Misc Test Result Platelets confirmed Quality Measures Quality Measures none Advance care planning discussed with:: patient Assessment & Plan Assessment Current Active Medications: Generic Name Dose Route Start Last Admin Trade Name Frelexi PRN Reason Stop Dose Admin Acetaminophen 650 mg 08/11/24 02:10 Acetaminophen 325 Mg Tablet PO 09/10/24 02:09 Q6H PRN PAIN OR FEVER > 101 Sunitib Malate 25 Mg 0 ea 08/12/24 09:00 08/12/24 09:00 Capsules PO 09/11/24 08:59 1 capsule DAILY LAKESHA Administration Ondansetron HCl 4 mg 08/11/24 02:10 Ondansetron Inj 2 Mg/Ml Inj 2 Ml IV 09/10/24 02:09 Q6H PRN NAUSEA OR VOMITING Protocol Pantoprazole Sodium 40 mg 08/11/24 09:00 08/12/24 08:59 Pantoprazole Inj 40 Mg Vial IVP 09/10/24 08:59 40 mg Q12HR LAKESHA Administration Plan Ms. Harris is a Tagalog-speaking 88-year-old female with a past medical history of gastric cancer status post partial gastrectomy and currently on sunitinib malate chemotherapy (previously on nilotinib) who presents to the ED for bright red blood per rectum for 2 days with generalized weakness and decreased appetite. # Symptomatic anemia #GI bleed, likely lower -Presents with 1 episode of bright red blood in stool setting of chronic anemia and generalized weakness. -Initial hemoglobin 10.5, downtrending to 9.2. -FOBT positive. Plan: ? GI consulted, appreciate recommendations? Will be back 08/13, family understands ? Dysphagia 2 diet? After pending speech swallow screen ? Dietitian referral given decreased p.o. intake ? Monitor H&H ? Pantoprazole 40 mg IV twice daily #Cachexia -BMI 17.1, total protein 4.8, albumin 1.8 Plan: ? Ensure with every meal -Consult dietitian -Resumed home mirtazapine 7.5mg #Elevated troponins- resolved #NSTEMI type II, demand ischemia Initial troponin 0.046 -> 0.049, likely due to chronic anemia. ? Trend troponins #Atrial fibrillation, new onset No history of atrial fibrillation, [id number] 3. Will defer anticoagulation given GI bleed. #History of gastric cancer #Leukopenia #Thrombocytopenia Per son, patient currently takes sunitinib malate and previously on nilotinib (Tasigna). -Waiting to speak to patient's oncologist Dr. Jean at [facility] Hospital management: Disposition: 2-3 hospital nights Fluids: NS at 75 mL/hr Diet: Dysphagia2, after pending speech swallow screen Lines: peripheral DVT prophylaxis: SCDs GI prophylaxis: pantoprazole 40 mg IV BID CODE STATUS: full code Assessment and plan discussed with my senior resident Dr. Zambrano & attending physician Dr. Gabi Vu (PGY-1)- Internal medicine resident Attending Provider Attestation/Addendum 88-year-old female with history of gastric adenocarcinoma status post partial gastrectomy and currently on sunitinib chemotherapy who presented to the ER with complaints of generalized weakness and bright red blood per rectum found to have symptomatic anemia. Workup including FOBT was positive and patient also noted to have elevated troponin that is deemed to be NSTEMI type II secondary to demand ischemia and also new onset A-fib rate controlled however unable to anticoagulate at this now. Plan to continue monitoring pending GI input. Hemoglobin stable and hemodynamically stable as well. Pending GI for possible EGD and colonoscopy. I reviewed above note and agree with findings and plans. I have also personally examined the patient with medicine team and went over assessment and plan with medical team including internal review and audit compliance and resident physician.
[2024-08-12 16:00] VITALS: BP 117/63; PULSE 78; PULSE 86; RESP 20; TEMP 37.2; O2SAT 96
[2024-08-12] MEDS: Artificial Tears 225 DROP/15 ML BTL BOTH EYES (19:34)
[2024-08-12 20:00] VITALS: BP 129/80; PULSE 74; PULSE 87; RESP 15; TEMP 36.8; O2SAT 97
[2024-08-12] MEDS: MIRTAZAPINE 15 MG TABLET 7.5 MG PO (20:28)
[2024-08-12 22:43] LABS: Hematocrit 24.8 % (36.0-46.0)
[2024-08-12 22:44] LABS: Hemoglobin 8.1 g/dL (12.0-16.0)
[2024-08-13] VITALS (10 sets, daily range): BP systolic 101–147; BP diastolic 63–96; PULSE 72–98; RESP 12–25; TEMP 36.8–37.6; O2SAT 94–100
[2024-08-13] MEDS: Artificial Tears 225 DROP/15 ML BTL BOTH EYES ×4 (05:23→22:12)
[2024-08-13 06:22] LABS: Basophils % (Auto) 0 % (0-2.5); Eosinophils # (Auto) 0.1 Thou/mm3 (0.0-0.5); Eosinophils % (Auto) 3 % (0-10); Hematocrit 24.5 % (36.0-46.0); Immature Granulocytes % (Auto) 3 % (0-0); Immature Granulocytes Auto 0.06 Thou/mm3 (0.00-0.00); Lymphocytes % (Auto) 42 % (10-50); Mean Corpuscular HGB Conc 33.5 g/dl (31.0-37.0); Mean Corpuscular Hemoglobin 33.1 pg (25.0-35.0); Mean Corpuscular Volume 99 fL (80-100); Monocytes # (Auto) 0.1 Thou/mm3 (0.0-0.8); Monocytes % (Auto) 5 % (0-12); Neutrophils # (Auto) 1.1 Thou/mm3 (1.8-7.7); Neutrophils % (Auto) 47 % (37-80); Nucleated Red Blood Cell # 0.08 Thou/mm3 (0.00-0.00); Nucleated Red Blood Cell % 3 /100 WBC (0); RDW Standard Deviation 86.6 fL (36.4-46.3); Red Blood Count 2.48 Miln/mm3 (4.00-5.20)
[2024-08-13 06:43] LABS: Hemoglobin 8.2 g/dL (12.0-16.0); Platelet Count 61 Thou/mm3 (140-440)
[2024-08-13 06:44] LABS: Slide Review Platelets confirmed; White Blood Count 2.4 Thou/mm3 (3.6-11.0)
[2024-08-13 06:49] LABS: Alanine Aminotransferase 13 U/L (10-49); Albumin, Serum 1.8 gm/dL (3.4-4.8); Albumin/Globulin Ratio 0.6 (1.2-2.2); Alkaline Phosphatase 55 U/L (46-116); Anion Gap 4 (7-16); Aspartate Amino Transferase 49 U/L (0-34); BUN/Creatinine Ratio 19 Ratio (12-20); Bilirubin,Total 0.6 mg/dL (0.3-1.2); Blood Urea Nitrogen 15 mg/dL (9-23); Calcium 7.3 mg/dL (8.3-10.6); Calcium (Corrected) 9.1 mg/dL (8.5-10.1); Carbon Dioxide 26.8 mMol/L (20.0-31.0); Chloride 110 mMol/L (98-107); Creatinine (Component) 0.8 mg/dL (0.6-1.3); Estimated Creatinine Clearance 31.1 mL/min (>60); Glucose 72 mg/dL (74-106); Osmolality,Calculated 281 (275-295); Potassium 3.8 mMol/L (3.4-5.1); Sodium 141 mMol/L (136-145); Total Protein 4.8 gm/dL (5.7-8.2); eGFR > 60 See Note
[2024-08-13] MEDS: PANTOPRAZOLE INJ 40 MG VIAL IVP ×2 (08:26→20:22)
[2024-08-13] MEDS: SUNITINIB PO (08:27)
[2024-08-13] MEDS: DEXTROSE 5%-NS 1,000 ML 50 ML IV (08:30)
--- NOTE | 2024-08-13 09:31 | PC.SS ---
Update: Plan is for the patient to obtain EGD today.
--- NOTE | 2024-08-13 15:49 | PD.RESPRO ---
Documentation for date of: 08/13/24 Subjective Subjective Interval history: 08/11: Patient is an overnight admission. Patient is seen and examined at at bedside. Patient's [place] language is [place] Patient seems a bit confused, although translation services were used however patient appeared to be very confused to why she was in the hospital. She stated that her children dropped her off and she has no idea why. Patient denied any chest pain shortness of breath, nausea, vomiting, abdominal pain. Patient had no complaints. 08/12: No overnight events, patient is seen and examined at bedside. Patient seems to be more alert and less confused today. She continues to deny any complaints and knowledge of why she is in the hospital. Patient denies any chest pain or abdominal pain nausea or vomiting. Patient only had less than 5% of her breakfast and she says that she always only takes couple bites of her breakfast because she does not have an appetite. Patient did say that she also takes couple sips of the Ensure that her son brought for her. Patient states that her eyes are itchy and she has been scratching it which causes redness to her eyes. Patient has no other complaints 08/13: No overnight events, patient is seen and examined at bedside patient's family is at bedside as well. Patient's glucose this morning was 72 given patient is n.p.o. since midnight will give D5 NS x 1 as patient will be undergoing endoscopy today. Dr. Ledesma requested patient to be given clear liquid diet x 1 and then n.p.o. patient has improvement in her dry itchy eyes. Patient denies any chest pain shortness of breath abdominal pain nausea or vomiting. She continues to have poor oral intake. patient has no other complaints Exam Vital Signs Temp Pulse Resp BP Pulse Ox O2 Del Method 98.5 F 81 20 115/64 97 Room Air 08/13/24 12:00 08/13/24 12:00 08/13/24 12:00 08/13/24 12:00 08/13/24 12:00 08/13/24 12:00 Narrative Exam GENERAL: A&Ox3 . Awake, Not in acute distress, elderly, thin appearing NEURO: humanities division chair grossly intact, moves extremities x4 HEENT: Atraumatic, Normocephalic. mucous membranes moist. Eyes open, symmetrical, & clear HEART: Normal Heart Sounds LUNGS: Clear to auscultation with no wheezing or crackles. ABDOMEN: soft, non-distended, non-tender, bowel sounds heard, no guarding or rebound tenderness SKIN: No Rash or ecchymoses EXTREMITIES: No edema, tenderness, able to move all 4 extremities, pedal pulses palpated Objective Labs 08/13/24 04:50 08/13/24 04:50 Labs: Laboratory Results - last 24 hr 08/12/24 08/13/24 22:06 04:50 WBC 2.4 L RBC 2.48 L Hgb 8.1 L 8.2 L Hct 24.8 L 24.5 L MCV 99 MCH 33.1 MCHC 33.5 RDW Std Deviation 86.6 H Plt Count 61 L Neut % (Auto) 47 Lymph % (Auto) 42 [place] % (Auto) 5 Eos % (Auto) 3 Baso % (Auto) 0 Neut # (Auto) 1.1 L Lymph # (Auto) 1.0 [place] # (Auto) 0.1 Eos # (Auto) 0.1 Baso # (Auto) 0.0 Immature Gran # (Auto) 0.06 H Absolute Nucleated RBC 0.08 H Immature Gran % 3 H Nucleated RBC % 3 H Sodium 141 Potassium 3.8 Chloride 110 H Carbon Dioxide 26.8 Anion Gap 4 L BUN 15 Creatinine 0.8 Estim Creat Clear Calc 31.1 L eGFR > 60 BUN/Creatinine Ratio 19 Glucose 72 L Calculated Osmolality 281 Calcium 7.3 L Corrected Calcium 9.1 Total Bilirubin 0.6 AST 49 H ALT 13 Alkaline Phosphatase 55 Total Protein 4.8 L Albumin 1.8 L Globulin 3.0 Albumin/Globulin Ratio 0.6 L Misc Test Result Platelets confirmed Quality Measures Quality Measures none Advance care planning discussed with:: patient Assessment & Plan Assessment Current Active Medications: Generic Name Dose Route Start Last Admin Trade Name Freq PRN Reason Stop Dose Admin Acetaminophen 650 mg 08/11/24 02:10 Acetaminophen 325 Mg Tablet PO 09/10/24 02:09 Q6H PRN PAIN OR FEVER > 101 Artificial Tears 0 drop 08/12/24 15:04 08/13/24 09:43 Artificial Tears 225 Drop/15 Ml Btl BOTH EYES 09/11/24 15:03 2 drops PRN PRN Administration TO KEEP EYES MOIST Artificial Tears 0 drop 08/12/24 22:00 08/13/24 14:13 Artificial Tears 225 Drop/15 Ml Btl BOTH EYES 09/11/24 21:59 1 drop TID LAKESHA Administration Sunitib Malate 25 Mg 0 ea 08/12/24 09:00 08/13/24 08:27 Capsules PO 09/11/24 08:59 1 capsule DAILY LAKESHA Administration Dextrose/Sodium Chloride 1,000 mls @ 50 mls/hr 08/13/24 08:00 08/13/24 08:30 D5-Ns IV 08/14/24 03:59 50 mls/hr .Q20H ONE Administration Mirtazapine 7.5 mg 08/12/24 21:00 08/12/24 20:28 Mirtazapine 15 Mg Tablet PO 09/11/24 20:59 7.5 mg HS LAKESHA Administration Ondansetron HCl 4 mg 08/11/24 02:10 Ondansetron Inj 2 Mg/Ml Inj 2 Ml IV 09/10/24 02:09 Q6H PRN NAUSEA OR VOMITING Protocol Pantoprazole Sodium 40 mg 08/11/24 09:00 08/13/24 08:26 Pantoprazole Inj 40 Mg Vial IVP 09/10/24 08:59 40 mg Q12HR LAKESHA Administration Plan Ms. Harris is a Tagalog-speaking 88-year-old female with a past medical history of gastric cancer status post partial gastrectomy and currently on sunitinib malate chemotherapy (previously on nilotinib) who presents to the ED for bright red blood per rectum for 2 days with generalized weakness and decreased appetite. # Symptomatic anemia # Pancytopenia #GI bleed, likely lower -WBC 2.4, Hgb 8.2, HCT 24.5, platelet 61 -Presents with 1 episode of bright red blood in stool setting of chronic anemia and generalized weakness. -Initial hemoglobin 10.5, downtrending to 9.2. -FOBT positive. Plan: ? GI consulted, appreciate recommendations? Will be back 08/13, family understands ? Dysphagia 2 diet ? Dietitian referral given decreased p.o. intake ? Monitor H&H ? Pantoprazole 40 mg IV twice daily #Cachexia -BMI 17.1, total protein 4.8, albumin 1.8 Plan: ? Ensure with every meal -Consult dietitian -Resumed home mirtazapine 7.5mg #Elevated troponins- resolved #NSTEMI type II, demand ischemia Initial troponin 0.046 -> 0.049, likely due to chronic anemia. ? Trend troponins #Atrial fibrillation, new onset No history of atrial fibrillation, [id number] 3. Will defer anticoagulation given GI bleed. #History of gastric cancer #Leukopenia #Thrombocytopenia Per son, patient currently takes sunitinib malate and previously on nilotinib (Tasigna). -Waiting to speak to patient's oncologist Dr. Jean at [facility] Hospital management: Disposition: 2-3 hospital nights Fluids: NS at 75 mL/hr Diet: Dysphagia2, after pending speech swallow screen Lines: peripheral DVT prophylaxis: SCDs GI prophylaxis: pantoprazole 40 mg IV BID CODE STATUS: full code Assessment and plan discussed with my senior resident Dr. Zambrano & attending physician Dr. Gabi Vu (PGY-1)- Internal medicine resident Attending Provider Attestation/Addendum 88-year-old female with history of gastric adenocarcinoma status post partial gastrectomy and currently on sunitinib chemotherapy who presented to the ER with complaints of generalized weakness and bright red blood per rectum found to have symptomatic anemia. Workup including FOBT was positive and patient also noted to have elevated troponin that is deemed to be NSTEMI type II secondary to demand ischemia and also new onset A-fib rate controlled however unable to anticoagulate at this now. Plan to continue monitoring pending GI input. Hemoglobin stable and hemodynamically stable as well. NPO for EGD today. I reviewed above note and agree with findings and plans. I have also personally examined the patient with medicine team and went over assessment and plan with medical team including international relations professor and resident physician.
--- NOTE | 2024-08-13 17:17 | PD.IMCONS ---
HPI Data of Consult Requesting Physician: Chinedu Ashley MD Primary Care Provider: Physician No Primary/Family Consult Narrative Reason for consult: FOBT positive occult GI bleeding history of gastric carcinoma History of present illness: 88 years old female evaluated in the presence of family in room 267 Patient presented to the hospital confused does have a history of atrial fibrillation with RVR had an elevated troponin has symptomatic chronic anemia with hypoalbuminemia with a total protein of 4.8 and albumin of 1.8 She has a history of gastric carcinoma being treated at [facility] with chemotherapy She also had episode of hematochezia while in the hospital and is found to be FOBT positive She had an elevated troponin on admission but it has normalized now she also had atrial fibrillation with RVR rate is controlled at the moment cc:: cc: Chinedu Ashley MD Review of Systems Review of Systems Systems Reviewed: All systems reviewed, normal except as documented Past Medical History Surgical History OTHER SURGICAL HX: Asthma history of present illness Meds Home Medications and Allergies Home Medications ?Medication ?Instructions ?Recorded ?Confirmed ?Type mirtazapine 7.5 mg tablet 7.5 mg PO QPM 08/11/24 08/11/24 History sunitinib malate 25 mg capsule 25 mg PO DAILY 08/11/24 08/11/24 History Allergies Allergy/AdvReac Type Severity Reaction Status Date / Time No Known Allergies Allergy Verified 08/10/24 18:56 Exam Vital Signs Temp Pulse Resp BP Pulse Ox O2 Del Method 98.5 F 81 20 115/64 97 Room Air 08/13/24 12:00 08/13/24 12:00 08/13/24 12:00 08/13/24 12:00 08/13/24 12:00 08/13/24 12:00 Constitutional Comments: Cachectic appearing chronically sick patient Routine Respiratory Exam Comments: Normal to auscultation Routine Abdominal Exam Comments: Soft nontender Results Labs 08/13/24 04:50 08/13/24 04:50 Labs: Short CBC 08/12/24 08/13/24 Range/Units 22:06 04:50 WBC 2.4 L (3.6-11.0) Thou/mm3 Hgb 8.1 L 8.2 L (12.0-16.0) g/dL Hct 24.8 L 24.5 L (36.0-46.0) % Plt Count 61 L (140-440) Thou/mm3 BMP 08/13/24 04:50 Sodium 141 Potassium 3.8 Chloride 110 H Carbon Dioxide 26.8 BUN 15 Creatinine 0.8 Glucose 72 L Calcium 7.3 L Liver Function 08/13/24 Range/Units 04:50 Total Bilirubin 0.6 (0.3-1.2) mg/dL AST 49 H (0-34) U/L ALT 13 (10-49) U/L Alkaline Phosphatase 55 (46-116) U/L Albumin 1.8 L (3.4-4.8) gm/dL Assessment and Plan Additional Assessment & Plan Additional Plan: # 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 and episode of hematochezia Obvious cause of bleeding is gastric carcinoma however there could be additional source of bleeding from the lower GI tract Initial plan of care is to do an upper endoscopy to see if there is an active bleeding going on and if that is negative we will consider doing a fibrotic colonoscopy examination Informed consent obtained from the family and we will proceed with the procedure Other medical problems include the following # A-fib with RVR rate controlled # Elevated troponin # come back to normal # Cachexia with hypoproteinemia and hypoalbuminemia Will follow the patient Thank you very much for the opportunity to participate in the care of this patient
[2024-08-14] VITALS: BP 116/74; PULSE 78; PULSE 82; RESP 14; TEMP 36.7; O2SAT 96
[2024-08-14 04:00] VITALS: BP 119/74; PULSE 79; PULSE 86; RESP 13; TEMP 36.7; O2SAT 96
[2024-08-14] MEDS: Artificial Tears 225 DROP/15 ML BTL BOTH EYES ×2 (05:01→20:55)
[2024-08-14 06:00] VITALS: BMI 17.0
[2024-08-14 06:10] LABS: Basophils % (Auto) 1 % (0-2.5); Eosinophils % (Auto) 2 % (0-10); Hematocrit 25.3 % (36.0-46.0); Immature Granulocytes % (Auto) 2 % (0-0); Immature Granulocytes Auto 0.03 Thou/mm3 (0.00-0.00); Lymphocytes # (Auto) 0.7 Thou/mm3 (1.0-4.8); Lymphocytes % (Auto) 36 % (10-50); Mean Corpuscular HGB Conc 32.8 g/dl (31.0-37.0); Mean Corpuscular Hemoglobin 32.9 pg (25.0-35.0); Mean Corpuscular Volume 100 fL (80-100); Monocytes # (Auto) 0.1 Thou/mm3 (0.0-0.8); Monocytes % (Auto) 6 % (0-12); Neutrophils # (Auto) 1.1 Thou/mm3 (1.8-7.7); Neutrophils % (Auto) 55 % (37-80); Nucleated Red Blood Cell # 0.06 Thou/mm3 (0.00-0.00); Nucleated Red Blood Cell % 3 /100 WBC (0); RDW Standard Deviation 89.8 fL (36.4-46.3); Red Blood Count 2.52 Miln/mm3 (4.00-5.20)
[2024-08-14 06:11] LABS: Hemoglobin 8.3 g/dL (12.0-16.0); Platelet Count 59 Thou/mm3 (140-440); White Blood Count 2.1 Thou/mm3 (3.6-11.0)
[2024-08-14 06:28] LABS: Slide Review Platelets confirmed
[2024-08-14 06:31] LABS: Anion Gap 2 (7-16); BUN/Creatinine Ratio 19 Ratio (12-20); Blood Urea Nitrogen 15 mg/dL (9-23); Calcium 7.6 mg/dL (8.3-10.6); Carbon Dioxide 26.3 mMol/L (20.0-31.0); Chloride 114 mMol/L (98-107); Creatinine (Component) 0.8 mg/dL (0.6-1.3); Estimated Creatinine Clearance 30.9 mL/min (>60); Glucose 74 mg/dL (74-106); Osmolality,Calculated 282 (275-295); Potassium 3.9 mMol/L (3.4-5.1); Sodium 142 mMol/L (136-145); eGFR > 60 See Note
[2024-08-14 08:00] VITALS: BP 114/70; PULSE 100; RESP 16; TEMP 36.7; O2SAT 95
[2024-08-14] MEDS: SUNITINIB PO (08:11)
[2024-08-14] MEDS: PANTOPRAZOLE INJ 40 MG VIAL IVP ×2 (08:12→20:55)
--- NOTE | 2024-08-14 10:25 | PC.SS ---
FINANCIAL PLANNING ASSISTANT confirmed with patient's daughter, Angie Harris; that patient's discharge plan is to return home. If home health recommended no preferred agency identified. 3-1 [facility] requested on behalf of the patient. Patient's physical address is [address] [place] [address].
--- NOTE | 2024-08-14 10:44 | PC.SS ---
Bedside Commode Patient is physically incapable of utilizing regular toilet facilities because his or her diagnosis confines the patient to a single room. Patient is confined to a single level, and there is no toilet on that level; patient cannot access the toilet facilities in a timely manner due to lack of ambulation.
--- NOTE | 2024-08-14 11:14 | PC.SS ---
Patient's PCP is Dr. Gopal Dudley.
--- NOTE | 2024-08-14 11:34 | PC.SS ---
DME referral for 3-1 commode submitted on behalf of the patient.
[2024-08-14 12:00] VITALS: BP 111/81; PULSE 84; PULSE 85; RESP 14; TEMP 37; O2SAT 93
--- NOTE | 2024-08-14 13:28 | ESPR_ITS ---
Documentation for date of: 08/14/24 Subjective Subjective Interval history: Patient was seen and examined at bedside. No acute overnight events. Patient reported bright red blood per rectum today after defecation. She underwent EGD yesterday but no source of bleeding was discovered. Dr. Ledesma wants to do colonoscopy today, NG tube was ordered and patient was started on GoLytely 300 cc per hour. Her hemoglobin remained stable at 8.3 today. Will continue current management and monitor patient. Exam Vital Signs Temp Pulse Resp BP Pulse Ox O2 Del Method O2 Flow Rate 98.6 F 84 14 111/81 93 L Room Air 0 08/14/24 12:00 08/14/24 12:00 08/14/24 12:00 08/14/24 12:00 08/14/24 12:00 08/14/24 12:00 08/14/24 12:00 Narrative Exam Gen: Well-developed and well-nourished cachectic female. HEENT: NCAT, PERRLA, EOMI, MMM, anicteric conjunctivae, temporal wasting noted. CVS: normal S1 and S2. RRR. No M/R/G. Resp: CTA B/L. No rhonchi, rales, crackles or wheezing. Abd: soft, non-tender, non-distended. BS+ in all 4 quadrants. MSK: Good ROM in BUE & BLE. No edema or rash. Decreased muscle mass. Neuro: CN II-XII grossly intact. Strength 5/5 in BUE & BLE. Alert and oriented x3. Objective Labs 08/15/24 04:49 08/14/24 05:17 Labs: Laboratory Results - last 24 hr 08/14/24 05:17 WBC 2.1 L RBC 2.52 L Hgb 8.3 L Hct 25.3 L MCV 100 MCH 32.9 MCHC 32.8 RDW Std Deviation 89.8 H Plt Count 59 L Neut % (Auto) 55 Lymph % (Auto) 36 [place] % (Auto) 6 Eos % (Auto) 2 Baso % (Auto) 1 Neut # (Auto) 1.1 L Lymph # (Auto) 0.7 L [place] # (Auto) 0.1 Eos # (Auto) 0.0 Baso # (Auto) 0.0 Immature Gran # (Auto) 0.03 H Absolute Nucleated RBC 0.06 H Immature Gran % 2 H Nucleated RBC % 3 H Sodium 142 Potassium 3.9 Chloride 114 H Carbon Dioxide 26.3 Anion Gap 2 L BUN 15 Creatinine 0.8 Estim Creat Clear Calc 30.9 L eGFR > 60 BUN/Creatinine Ratio 19 Glucose 74 Calculated Osmolality 282 Calcium 7.6 L Misc Test Result Platelets confirmed Quality Measures Quality Measures VTE prophylaxis Advance care planning discussed with:: patient Assessment & Plan Assessment Current Active Medications: Generic Name Dose Route Start Last Admin Trade Name Freq PRN Reason Stop Dose Admin Acetaminophen 650 mg 08/11/24 02:10 Acetaminophen 325 Mg Tablet PO 09/10/24 02:09 Q6H PRN PAIN OR FEVER > 101 Artificial Tears 0 drop 08/12/24 15:04 08/13/24 09:43 Artificial Tears 225 Drop/15 Ml Btl BOTH EYES 09/11/24 15:03 2 drops PRN PRN Administration TO KEEP EYES MOIST Artificial Tears 0 drop 08/12/24 22:00 08/14/24 05:01 Artificial Tears 225 Drop/15 Ml Btl BOTH EYES 09/11/24 21:59 1 drop TID LAKESHA Administration Sunitib Malate 25 Mg 0 ea 08/12/24 09:00 08/14/24 08:11 Capsules PO 09/11/24 08:59 1 capsule DAILY LAKESHA Administration Mirtazapine 7.5 mg 08/12/24 21:00 08/13/24 20:18 Mirtazapine 15 Mg Tablet PO 09/11/24 20:59 Not Given HS LAKESHA Ondansetron HCl 4 mg 08/11/24 02:10 Ondansetron Inj 2 Mg/Ml Inj 2 Ml IV 09/10/24 02:09 Q6H PRN NAUSEA OR VOMITING Protocol Pantoprazole Sodium 40 mg 08/11/24 09:00 08/14/24 08:12 Pantoprazole Inj 40 Mg Vial IVP 09/10/24 08:59 40 mg Q12HR LAKESHA Administration Plan Ms. Harris is a Tagalog-speaking 88-year-old female with a past medical history of gastric cancer status post partial gastrectomy and currently on sunitinib malate chemotherapy (previously on nilotinib) who presents to the ED for bright red blood per rectum for 2 days with generalized weakness and decreased appetite. #Symptomatic anemia. #Pancytopenia. #GI bleed. -WBC 2.4, Hgb 8.2, HCT 24.5, platelet 61. -Presents with 1 episode of bright red blood in stool setting of chronic anemia and generalized weakness. -Initial hemoglobin 10.5, downtrending to 9.2. FOBT positive. -EGD did not show any source of bleeding. Plan: ? GI consulted, appreciate recommendations. ? golytely via NG tube. - Patient is planned for colonoscopy. ? Dietitian referral given decreased p.o. intake. ? Monitor H&H. ? Pantoprazole 40 mg IV twice daily. #Cachexia. -BMI 17.1, total protein 4.8, albumin 1.8 Plan: ?Ensure with every meal. -Consult dietitian. -Resumed home mirtazapine 7.5mg. #Elevated troponins- resolved. #NSTEMI type II, demand ischemia. Initial troponin 0.046 -> 0.049, likely due to chronic anemia. #Atrial fibrillation, new onset. No history of atrial fibrillation, [id number] 3. Will defer anticoagulation given GI bleed. #History of gastric cancer. #Leukopenia. #Thrombocytopenia. Per son, patient currently takes sunitinib malate and previously on nilotinib (Tasigna). -Waiting to speak to patient's oncologist Dr. Jean at [facility]. Disposition: telemetry. Fluids: NS at 75 mL/hr. Diet: CLD. Lines: peripheral DVT prophylaxis: SCDs. GI prophylaxis: pantoprazole 40 mg IV BID. CODE STATUS: full code. Plan of care discussed with attending Dr. Gagnon. Joaquin Zambrano MD, PGY 2. Disclaimer: This note was dictated by speech recognition. Minor errors in drying room attendant may be present due to voice recognition software. Attending Provider Attestation/Addendum Morenita Brooke, DO, attest that I was physically present for the cervantes portions of the service and evaluated the patient with the resident and I reviewed and discussed the case with the resident and agree with the resident's findings and plans of care as documented above Patient seen and evaluated this AM. Patient underwent EGD during which she was found to have gastritis and esophagitis. Patient had an episode of BRBPR this AM. Discussed with daughter at bedside regarding undergoing colonoscopy as recommended by GI. They are willing to proceed with colonoscopy. Explained to daughter that patient may need a PEG tube if she continues to have poor appetite. No tumor was visualized on EGD despite history of gastric cancer. Family states they may consider PEG tube in the future, but would like to encourage patient to eat. Will proceed with colon prep at this time for Y[place]. Explained to daughter that patient may need placement of NG tube if she is unable to drink the colon prep.
[2024-08-14] MEDS: NA SU/NAHCO3/KC/PEG (Golytely) 4,000 ML BTL 4000 ML NG (13:36)
[2024-08-14 14:28] VITALS: BMI 17.0
[2024-08-14 16:00] VITALS: BP 117/70; PULSE 80; PULSE 82; RESP 19; TEMP 36.5; O2SAT 95
--- NOTE | 2024-08-14 19:49 | PD.IMPROG ---
Documentation for date of: 08/14/24 Subjective Subjective Interval history: Internal medicine team talked with the family Family is likely to have a colonoscopy done and the possible placement of a PEG tube which I will schedule after GoLytely prep via the NGT as the patient will not drink the GoLytely Exam Vital Signs Temp Pulse Resp BP Pulse Ox O2 Del Method O2 Flow Rate 97.7 F 82 19 117/70 95 Room Air 0 08/14/24 16:00 08/14/24 16:00 08/14/24 16:00 08/14/24 16:00 08/14/24 16:00 08/14/24 16:00 08/14/24 16:00 Objective Labs 08/14/24 05:17 08/14/24 05:17 Labs: Laboratory Results - last 24 hr 08/14/24 05:17 WBC 2.1 L RBC 2.52 L Hgb 8.3 L Hct 25.3 L MCV 100 MCH 32.9 MCHC 32.8 RDW Std Deviation 89.8 H Plt Count 59 L Neut % (Auto) 55 Lymph % (Auto) 36 [place] % (Auto) 6 Eos % (Auto) 2 Baso % (Auto) 1 Neut # (Auto) 1.1 L Lymph # (Auto) 0.7 L [place] # (Auto) 0.1 Eos # (Auto) 0.0 Baso # (Auto) 0.0 Immature Gran # (Auto) 0.03 H Absolute Nucleated RBC 0.06 H Immature Gran % 2 H Nucleated RBC % 3 H Sodium 142 Potassium 3.9 Chloride 114 H Carbon Dioxide 26.3 Anion Gap 2 L BUN 15 Creatinine 0.8 Estim Creat Clear Calc 30.9 L eGFR > 60 BUN/Creatinine Ratio 19 Glucose 74 Calculated Osmolality 282 Calcium 7.6 L Misc Test Result Platelets confirmed Impressions Impression: # Acute posthemorrhagic anemia # Gastritis # History of gastric carcinoma currently on chemotherapy Plan GoLytely prep Consent for colonoscopy and placement of a percutaneous endoscopic gastrostomy tube endoscopically under intravenous moderate sedation Assessment & Plan A&P Narrative # 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 and episode of hematochezia Obvious cause of bleeding is gastric carcinoma however there could be additional source of bleeding from the lower GI tract Initial plan of care is to do an upper endoscopy to see if there is an active bleeding going on and if that is negative we will consider doing a fibrotic colonoscopy examination Informed consent obtained from the family and we will proceed with the procedure Other medical problems include the following # A-fib with RVR rate controlled # Elevated troponin # come back to normal # Cachexia with hypoproteinemia and hypoalbuminemia Will follow the patient Thank you very much for the opportunity to participate in the care of this patient Time Spent With Patient Time: Total time spent is greater than 50% in coordination of care (as documented) at patient's floor/unit and/or counseling patient:
[2024-08-14 20:00] VITALS: BP 112/69; PULSE 82; PULSE 88; RESP 13; TEMP 36.7; O2SAT 94
[2024-08-14] MEDS: MIRTAZAPINE 15 MG TABLET 7.5 MG PO (20:53)
[2024-08-15] VITALS (18 sets, daily range): BP systolic 113–146; BP diastolic 70–97; PULSE 74–127; RESP 11–26; TEMP 36.5–37.1; O2SAT 93–99; BMI 17.0
[2024-08-15 05:59] LABS: Basophils % (Auto) 1 % (0-2.5); Eosinophils % (Auto) 1 % (0-10); Hematocrit 24.6 % (36.0-46.0); Immature Granulocytes % (Auto) 1 % (0-0); Immature Granulocytes Auto 0.02 Thou/mm3 (0.00-0.00); Lymphocytes % (Auto) 40 % (10-50); Mean Corpuscular HGB Conc 32.5 g/dl (31.0-37.0); Mean Corpuscular Hemoglobin 32.8 pg (25.0-35.0); Mean Corpuscular Volume 101 fL (80-100); Monocytes # (Auto) 0.2 Thou/mm3 (0.0-0.8); Monocytes % (Auto) 6 % (0-12); Neutrophils # (Auto) 1.3 Thou/mm3 (1.8-7.7); Neutrophils % (Auto) 52 % (37-80); Nucleated Red Blood Cell # 0.11 Thou/mm3 (0.00-0.00); Nucleated Red Blood Cell % 5 /100 WBC (0); RDW Standard Deviation 89.7 fL (36.4-46.3); Red Blood Count 2.44 Miln/mm3 (4.00-5.20)
[2024-08-15 06:05] LABS: Platelet Count 66 Thou/mm3 (140-440)
[2024-08-15 06:06] LABS: Slide Review Platelets confirmed; White Blood Count 2.5 Thou/mm3 (3.6-11.0)
[2024-08-15] MEDS: PANTOPRAZOLE INJ 40 MG VIAL IVP ×2 (08:42→20:59)
[2024-08-15] MEDS: SUNITINIB PO (08:43)
[2024-08-15 11:48] LABS: BUN/Creatinine Ratio 19 Ratio (12-20); Blood Urea Nitrogen 17 mg/dL (9-23); Calcium 7.7 mg/dL (8.3-10.6); Creatinine (Component) 0.9 mg/dL (0.6-1.3); Estimated Creatinine Clearance 27.4 mL/min (>60); Glucose 65 mg/dL (74-106); eGFR > 60 See Note
[2024-08-15 11:50] LABS: Anion Gap 6 (7-16); Chloride 113 mMol/L (98-107); Osmolality,Calculated 288 (275-295); Potassium 3.6 mMol/L (3.4-5.1); Sodium 145 mMol/L (136-145)
--- NOTE | 2024-08-15 12:24 | PD.HHPROG ---
Documentation for date of: 08/15/24 Subjective - Hospitalist Subjective Interval history: Patient seen and evaluated this AM. She states she is feeling well, no acute complaints. Patient has been on GoLytely, but does not appear to have drank much. Patient declined NG tube last night. Per nursing, patient still not clear for colonoscopy. Encouraged patient to keep drinking prep. She denies any abdominal pain, nausea, vomiting, fevers or chills. Exam Vital Signs Temp Pulse Resp BP Pulse Ox O2 Del Method O2 Flow Rate 98.2 F 94 20 113/72 94 L Room Air 0 08/15/24 08:00 08/15/24 08:00 08/15/24 08:00 08/15/24 08:00 08/15/24 08:00 08/15/24 08:00 08/15/24 08:00 Narrative Gen: No acute distress, cachectic HEENT: NCAT, PERRLOU, Sclera anicteric, conjunctiva noninjected, oral mucosa moist without erythema Neck: Supple, full range of motion, no LAD CV: RRR, no murmurs, rubs or gallops Resp: CTAB/L, no wheezing, rhonchi or rales GI: abdomen soft, bowel sounds noted, no tenderness to palpation, no guarding or rebound tenderness, no organomegaly Skin: clean, dry, no rashes, lesions or ecchymosis Ext: no clubbing, cyanosis, or edema Neuro: A&O x3, CN II- XII intact b/l, no focal neurological deficits Objective - Hospitalist Labs Diagram: 08/15/24 04:49 08/15/24 04:49 Labs: Laboratory Results - last 24 hr 08/15/24 04:49 WBC 2.5 L RBC 2.44 L Hgb 8.0 L Hct 24.6 L MCV 101 H MCH 32.8 MCHC 32.5 RDW Std Deviation 89.7 H Plt Count 66 L Neut % (Auto) 52 Lymph % (Auto) 40 [place] % (Auto) 6 Eos % (Auto) 1 Baso % (Auto) 1 Neut # (Auto) 1.3 L Lymph # (Auto) 1.0 [place] # (Auto) 0.2 Eos # (Auto) 0.0 Baso # (Auto) 0.0 Immature Gran # (Auto) 0.02 H Absolute Nucleated RBC 0.11 H Immature Gran % 1 H Nucleated RBC % 5 H Sodium 145 Potassium 3.6 Chloride 113 H Carbon Dioxide 26.0 Anion Gap 6 L BUN 17 Creatinine 0.9 Estim Creat Clear Calc 27.4 L eGFR > 60 BUN/Creatinine Ratio 19 Glucose 65 L Calculated Osmolality 288 Calcium 7.7 L Misc Test Result Platelets confirmed Assessment & Plan Patient Synopsis Ms. Harris is a Tagalog-speaking 88-year-old female with a past medical history of gastric cancer status post partial gastrectomy and currently on sunitinib malate chemotherapy (previously on nilotinib) who presents to the ED for bright red blood per rectum for 2 days with generalized weakness and decreased appetite. #Symptomatic anemia. #Pancytopenia. #GI bleed. -WBC 2.4, Hgb 8.2, HCT 24.5, platelet 61. -Presents with 1 episode of bright red blood in stool setting of chronic anemia and generalized weakness. -Initial hemoglobin 10.5, downtrending to 9.2. FOBT positive. -EGD did not show any source of bleeding. Plan: ? place NG tube and resume golytely - Patient is planned for colonoscopy, but is not clear and will likely be postponed. F/u with GI ? Dietitian referral given decreased p.o. intake. ? Monitor H&H. ? Pantoprazole 40 mg IV twice daily. #Cachexia. -BMI 17.1, total protein 4.8, albumin 1.8 Plan: ?Ensure with every meal. -Consult dietitian. -Resumed home mirtazapine 7.5mg. - family would like to defer PEG tube placement at this time #Elevated troponins- resolved. #NSTEMI type II, demand ischemia. Initial troponin 0.046 -> 0.049, likely due to chronic anemia. #Atrial fibrillation, new onset. No history of atrial fibrillation, [id number] 3. Will defer anticoagulation given GI bleed. #History of gastric cancer. #Leukopenia. #Thrombocytopenia. Per son, patient currently takes sunitinib malate and previously on nilotinib (Tasigna). - patient's oncologist Dr. Jean at [facility] recommends continuing chemotherapy agent Disposition: telemetry. Fluids: NS at 75 mL/hr. Diet: CLD. Lines: peripheral DVT prophylaxis: SCDs. GI prophylaxis: pantoprazole 40 mg IV BID. CODE STATUS: full code. Time Spent with Patient Time: Total time spent is greater than 50% in coordination of care (as documented) at patient's floor/unit and/or counseling patient: Time with patient: 25 - 35 minutes Reason for Continued Stay Reason for continued stay: further monitoring and further dx testing Quality Measures Quality Measures VTE prophylaxis Advance care planning discussed with:: patient
[2024-08-15] MEDS: Artificial Tears 225 DROP/15 ML BTL BOTH EYES (20:59)
[2024-08-16] VITALS (7 sets, daily range): BP systolic 115–139; BP diastolic 72–83; PULSE 70–109; RESP 13–24; TEMP 36.1–37.4; O2SAT 92–96
[2024-08-16] MEDS: Artificial Tears 225 DROP/15 ML BTL BOTH EYES ×2 (05:25→21:27)
[2024-08-16 06:06] LABS: Basophils % (Auto) 1 % (0-2.5); Eosinophils % (Auto) 1 % (0-10); Hematocrit 25.6 % (36.0-46.0); Immature Granulocytes % (Auto) 2 % (0-0); Immature Granulocytes Auto 0.07 Thou/mm3 (0.00-0.00); Lymphocytes # (Auto) 1.2 Thou/mm3 (1.0-4.8); Lymphocytes % (Auto) 37 % (10-50); Mean Corpuscular HGB Conc 32.8 g/dl (31.0-37.0); Mean Corpuscular Hemoglobin 32.8 pg (25.0-35.0); Mean Corpuscular Volume 100 fL (80-100); Monocytes # (Auto) 0.2 Thou/mm3 (0.0-0.8); Monocytes % (Auto) 5 % (0-12); Neutrophils # (Auto) 1.8 Thou/mm3 (1.8-7.7); Neutrophils % (Auto) 55 % (37-80); Nucleated Red Blood Cell % 6 /100 WBC (0); RDW Standard Deviation 90.7 fL (36.4-46.3); Red Blood Count 2.56 Miln/mm3 (4.00-5.20); White Blood Count 3.2 Thou/mm3 (3.6-11.0)
[2024-08-16 06:12] LABS: Hemoglobin 8.4 g/dL (12.0-16.0); Platelet Count 58 Thou/mm3 (140-440)
[2024-08-16 06:44] LABS: Anion Gap 9 (7-16); BUN/Creatinine Ratio 20 Ratio (12-20); Blood Urea Nitrogen 16 mg/dL (9-23); Calcium 7.5 mg/dL (8.3-10.6); Carbon Dioxide 25.8 mMol/L (20.0-31.0); Chloride 109 mMol/L (98-107); Creatinine (Component) 0.8 mg/dL (0.6-1.3); Estimated Creatinine Clearance 31.5 mL/min (>60); Glucose 66 mg/dL (74-106); Osmolality,Calculated 286 (275-295); Potassium 3.4 mMol/L (3.4-5.1); Sodium 144 mMol/L (136-145); eGFR > 60 See Note
[2024-08-16 07:12] LABS: Slide Review Platelets confirmed
[2024-08-16] MEDS: PANTOPRAZOLE INJ 40 MG VIAL IVP ×2 (09:13→21:26)
[2024-08-16] MEDS: SUNITINIB PO (10:08)
[2024-08-16] MEDS: NA SU/NAHCO3/KC/PEG (Golytely) 4,000 ML BTL 4000 ML PO (12:33)
--- NOTE | 2024-08-16 13:51 | ESPR_ITS ---
<Statement entered by Joaquin Zambrano MD - 08/16/24 14:16> Senior Resident Attestation: I supervised/discussed management plan with medical assistant internal medicine physician Dr. Vu, and was involved in the care of this patient. I personally saw and examined the patient and discussed the assessment and plan with the entire medicine team, including my attending. I agree with the assessment and plan as documented. Patient was seen and examined at bedside. No acute overnight events. Patient received PEG tube, per GI patient was started on GoLytely 200 cc/h via PEG tube in anticipation of colonoscopy. Patient was no complaints today. Will continue current management and monitor patient. Patient's care was discussed with attending physician, Dr. Gagnon. Joaquin Zambrano MD PGY-2. Documentation for date of: 08/16/24 Subjective Subjective Interval history: 08/16: No overnight events, patient is seen and examined at bedside. Patient is resting comfortably and saturating on room air. Patient denies any abdominal pain, chest pain, nausea or vomiting. Currently patient is on GoLytely 200cc/h via G-tube as per Dr. Ledesma's request. Patient is scheduled for colonoscopy tomorrow. Patient has no other complaints. Exam Vital Signs Temp Pulse Resp BP Pulse Ox O2 Del Method O2 Flow Rate 97.5 F 79 16 136/83 H 95 Room Air 3 08/16/24 12:00 08/16/24 12:00 08/16/24 12:00 08/16/24 12:00 08/16/24 12:00 08/16/24 12:00 08/15/24 19:20 Narrative Exam GENERAL: A&Ox3 . Awake, Not in acute distress, elderly, thin appearing NEURO: no focal neurological deficits HEENT: Atraumatic, Normocephalic. mucous membranes moist. Eyes open, symmetrical, & clear HEART: Normal Heart Sounds LUNGS: Clear to auscultation with no wheezing or crackles. ABDOMEN: soft, non-distended, non-tender, no guarding or rebound tenderness, PEG tube present SKIN: No Rash or ecchymoses EXTREMITIES: No edema, tenderness, able to move all 4 extremities, pedal pulses palpated Objective Labs 08/16/24 05:16 08/16/24 05:16 Labs: Laboratory Results - last 24 hr 08/16/24 05:16 WBC 3.2 L RBC 2.56 L Hgb 8.4 L Hct 25.6 L MCV 100 MCH 32.8 MCHC 32.8 RDW Std Deviation 90.7 H Plt Count 58 L Neut % (Auto) 55 Lymph % (Auto) 37 [place] % (Auto) 5 Eos % (Auto) 1 Baso % (Auto) 1 Neut # (Auto) 1.8 Lymph # (Auto) 1.2 [place] # (Auto) 0.2 Eos # (Auto) 0.0 Baso # (Auto) 0.0 Immature Gran # (Auto) 0.07 H Absolute Nucleated RBC 0.20 H Immature Gran % 2 H Nucleated RBC % 6 H Sodium 144 Potassium 3.4 Chloride 109 H Carbon Dioxide 25.8 Anion Gap 9 BUN 16 Creatinine 0.8 Estim Creat Clear Calc 31.5 L eGFR > 60 BUN/Creatinine Ratio 20 Glucose 66 L Calculated Osmolality 286 Calcium 7.5 L Misc Test Result Platelets confirmed Quality Measures Quality Measures VTE prophylaxis Advance care planning discussed with:: patient and child Assessment & Plan Assessment Current Active Medications: Generic Name Dose Route Start Last Admin Trade Name Freq PRN Reason Stop Dose Admin Acetaminophen 650 mg 08/11/24 02:10 Acetaminophen 325 Mg Tablet PO 09/10/24 02:09 Q6H PRN PAIN OR FEVER > 101 Artificial Tears 0 drop 08/12/24 15:04 08/13/24 09:43 Artificial Tears 225 Drop/15 Ml Btl BOTH EYES 09/11/24 15:03 2 drops PRN PRN Administration TO KEEP EYES MOIST Artificial Tears 0 drop 08/12/24 22:00 08/16/24 13:27 Artificial Tears 225 Drop/15 Ml Btl BOTH EYES 09/11/24 21:59 Not Given TID LAKESHA Sunitib Malate 25 Mg 0 ea 08/12/24 09:00 08/16/24 10:08 Capsules PO 09/11/24 08:59 1 capsule DAILY LAKESHA Administration Mirtazapine 7.5 mg 08/12/24 21:00 08/15/24 20:59 Mirtazapine 15 Mg Tablet PO 09/11/24 20:59 Not Given HS LAKESHA Ondansetron HCl 4 mg 08/11/24 02:10 Ondansetron Inj 2 Mg/Ml Inj 2 Ml IV 09/10/24 02:09 Q6H PRN NAUSEA OR VOMITING Protocol Pantoprazole Sodium 40 mg 08/11/24 09:00 08/16/24 09:13 Pantoprazole Inj 40 Mg Vial IVP 09/10/24 08:59 40 mg Q12HR LAKESHA Administration Plan Ms. Harris is a Tagalog-speaking 88-year-old female with a past medical history of gastric cancer status post partial gastrectomy and currently on sunitinib malate chemotherapy (previously on nilotinib) who presents to the ED for bright red blood per rectum for 2 days with generalized weakness and decreased appetite. #Symptomatic anemia. #Pancytopenia. #GI bleed. -WBC 2.4, Hgb 8.2, HCT 24.5, platelet 61. -Presents with 1 episode of bright red blood in stool setting of chronic anemia and generalized weakness. -Initial hemoglobin 10.5, downtrending to 9.2. FOBT positive. -EGD did not show any source of bleeding. Plan: ? GI consulted, appreciate recommendations. ? golytely via NG tube at 200cc/hr - Patient is planned for colonoscopy tomorrow ? Dietitian referral given decreased p.o. intake. ? Monitor H&H. ? Pantoprazole 40 mg IV twice daily. #Cachexia. -BMI 17.1, total protein 4.8, albumin 1.8 Plan: ?Ensure with every meal. -Consult dietitian. -Resumed home mirtazapine 7.5mg. #Elevated troponins- resolved. #NSTEMI type II, demand ischemia. Initial troponin 0.046 -> 0.049, likely due to chronic anemia. #Atrial fibrillation, new onset. No history of atrial fibrillation, [id number] 3. Will defer anticoagulation given GI bleed. #History of gastric cancer. #Leukopenia. #Thrombocytopenia. Per son, patient currently takes sunitinib malate and previously on nilotinib (Tasigna). -Waiting to speak to patient's oncologist Dr. Jean at [facility]. Disposition: telemetry- waiting for colonoscopy Diet: CLD. Lines: peripheral and PEG tube DVT prophylaxis: SCDs. GI prophylaxis: pantoprazole 40 mg IV BID. CODE STATUS: full code. Assessment and plan discussed with my senior resident Dr. Zambrano & attending physician Dr. Kalin Vu (PGY-1)- Internal medicine resident Attending Provider Attestation/Addendum I, Morenita Gagnon, , attest that I was physically present for the cervantes portions of the service and evaluated the patient with the resident and I reviewed and discussed the case with the resident and agree with the resident's findings and plans of care as documented above Patient seen and evaluated this AM. Daughter is at bedside. PEG tube was placed yesterday. Per GI, start GoLytely at 200 mL an hour in anticipation of colonoscopy tomorrow. Patient has no active complaints. She is anxious to go home. Explained to daughter and patient that tube feeds will need to be slowly advanced once diet is to be advanced to goal. Anticipate DC in next 48-72hrs.
--- NOTE | 2024-08-16 18:02 | PD.IMPROG ---
Documentation for date of: 08/16/24 Subjective Subjective Interval history: Case discussed with the internal medicine team The PEG site looks very good Abdomen soft nontender and benign It was a difficult placement of the PEG tube because of her previous surgery Start the patient on GoLytely at 200 cc an hour Colonoscopy scheduled for tomorrow Exam Vital Signs Temp Pulse Resp BP Pulse Ox O2 Del Method O2 Flow Rate 97.0 F 98 15 128/80 94 L Room Air 3 08/16/24 16:00 08/16/24 16:00 08/16/24 16:00 08/16/24 16:00 08/16/24 16:00 08/16/24 16:00 08/15/24 19:20 Constitutional Comments: Alert oriented Routine Abdominal Exam Comments: Soft nontender PEG tube in place Objective Labs 08/16/24 05:16 08/16/24 05:16 Labs: Laboratory Results - last 24 hr 08/16/24 05:16 WBC 3.2 L RBC 2.56 L Hgb 8.4 L Hct 25.6 L MCV 100 MCH 32.8 MCHC 32.8 RDW Std Deviation 90.7 H Plt Count 58 L Neut % (Auto) 55 Lymph % (Auto) 37 [place] % (Auto) 5 Eos % (Auto) 1 Baso % (Auto) 1 Neut # (Auto) 1.8 Lymph # (Auto) 1.2 [place] # (Auto) 0.2 Eos # (Auto) 0.0 Baso # (Auto) 0.0 Immature Gran # (Auto) 0.07 H Absolute Nucleated RBC 0.20 H Immature Gran % 2 H Nucleated RBC % 6 H Sodium 144 Potassium 3.4 Chloride 109 H Carbon Dioxide 25.8 Anion Gap 9 BUN 16 Creatinine 0.8 Estim Creat Clear Calc 31.5 L eGFR > 60 BUN/Creatinine Ratio 20 Glucose 66 L Calculated Osmolality 286 Calcium 7.5 L Misc Test Result Platelets confirmed Impressions Impression: # Acute posthemorrhagic anemia Colonoscopy a.m. after GoLytely prep # Failure to thrive with hypoalbuminemia Status postplacement of a PEG tube Assessment & Plan A&P Narrative # 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 and episode of hematochezia Obvious cause of bleeding is gastric carcinoma however there could be additional source of bleeding from the lower GI tract Initial plan of care is to do an upper endoscopy to see if there is an active bleeding going on and if that is negative we will consider doing a fibrotic colonoscopy examination Informed consent obtained from the family and we will proceed with the procedure Other medical problems include the following # A-fib with RVR rate controlled # Elevated troponin # come back to normal # Cachexia with hypoproteinemia and hypoalbuminemia Will follow the patient Thank you very much for the opportunity to participate in the care of this patient Time Spent With Patient Time: Total time spent is greater than 50% in coordination of care (as documented) at patient's floor/unit and/or counseling patient:
[2024-08-16] MEDS: MIRTAZAPINE 15 MG TABLET 7.5 MG PO (21:26)
[2024-08-17] VITALS (16 sets, daily range): BP systolic 100–144; BP diastolic 63–92; PULSE 80–136; RESP 12–35; TEMP 36.3–37; O2SAT 92–100; BMI 18.1
[2024-08-17] MEDS: Artificial Tears 225 DROP/15 ML BTL BOTH EYES ×3 (05:16→21:03)
--- NOTE | 2024-08-17 05:43 | PC.NURSE ---
Around 0115 RN receive call patient heart rate tachy up to 150's, avasure alarm went off, when HEALTH AND WELLNESS ADVISOR goes to room, patient already standing in front of bathroom, bed found all wet, peg tube somehow disconnected and golytly leaked onto bed aprox 500 ml. bed changed, patient reconnected to peg via golytly on feeding pump at 200 ml/hr. unknown if patient disconnected tube herself or if tube accidentally came apart at connection site.
--- NOTE | 2024-08-17 05:54 | PC.NURSE ---
At aprox. 0500, RN checks golytly feed for refill, found with same amount as before, followed peg feeding line, no leakage found, not blocked at [address] way stop cock, however peg line found CLAMPED on patient side on tube clamped despite patient being told in her language not to touch or mess with tube and with Avasure monitoring in room. Peg line unclamped and golytely continued.
[2024-08-17 06:12] LABS: Basophils % (Auto) 0 % (0-2.5); Eosinophils % (Auto) 1 % (0-10); Hematocrit 24.9 % (36.0-46.0); Immature Granulocytes % (Auto) 4 % (0-0); Immature Granulocytes Auto 0.09 Thou/mm3 (0.00-0.00); Lymphocytes # (Auto) 0.6 Thou/mm3 (1.0-4.8); Lymphocytes % (Auto) 28 % (10-50); Mean Corpuscular HGB Conc 32.9 g/dl (31.0-37.0); Mean Corpuscular Hemoglobin 33.3 pg (25.0-35.0); Mean Corpuscular Volume 101 fL (80-100); Monocytes # (Auto) 0.1 Thou/mm3 (0.0-0.8); Monocytes % (Auto) 5 % (0-12); Neutrophils # (Auto) 1.4 Thou/mm3 (1.8-7.7); Neutrophils % (Auto) 62 % (37-80); Nucleated Red Blood Cell # 0.32 Thou/mm3 (0.00-0.00); Nucleated Red Blood Cell % 14 /100 WBC (0); RDW Standard Deviation 90.9 fL (36.4-46.3); Red Blood Count 2.46 Miln/mm3 (4.00-5.20)
[2024-08-17 06:18] LABS: Hemoglobin 8.2 g/dL (12.0-16.0); Platelet Count 63 Thou/mm3 (140-440); White Blood Count 2.2 Thou/mm3 (3.6-11.0)
[2024-08-17 06:19] LABS: Slide Review Platelets confirmed
[2024-08-17 06:40] LABS: Anion Gap 7 (7-16); BUN/Creatinine Ratio 17 Ratio (12-20); Blood Urea Nitrogen 12 mg/dL (9-23); Calcium 7.6 mg/dL (8.3-10.6); Carbon Dioxide 27.9 mMol/L (20.0-31.0); Chloride 109 mMol/L (98-107); Creatinine (Component) 0.7 mg/dL (0.6-1.3); Estimated Creatinine Clearance 37.4 mL/min (>60); Glucose 78 mg/dL (74-106); Osmolality,Calculated 285 (275-295); Potassium 3.1 mMol/L (3.4-5.1); Sodium 144 mMol/L (136-145); eGFR > 60 See Note
[2024-08-17] MEDS: PANTOPRAZOLE INJ 40 MG VIAL IVP ×2 (08:10→21:03)
[2024-08-17] MEDS: POTASSIUM CHL 10 mEq IVPB 10 MEQ/100 ML BAG 50 MEQ IV ×4 (08:10→15:04)
[2024-08-17] MEDS: SUNITINIB PO (08:24)
--- NOTE | 2024-08-17 11:02 | PC.DIETICIAN ---
Nutrition recommendations: Patient is at significant risk for refeeding syndrome; consider: 1. Vital 1.2 at 20 ml/hr x 24 hrs (do not advance) via PEG tube by pump. If no IV fluids, water flushes 25 ml/hr (or per MD). 2. Thiamine 100mg/day for 7 days; provide first dose at least 30 minutes before starting nutrition. 3. Multivitamins/Minerals. 4. Daily labs for P, K, and Mg; replace as needed. If no electrolytes disturbances after 24 hrs, advance 10 ml every 12 hrs to goal rate of 45 ml/hr x 24 hrs. Continue with water flushes 25 ml/hr (or per MD).
--- NOTE | 2024-08-17 14:16 | ESPR_ITS ---
<Statement entered by Joaquin Zambrano MD - 08/17/24 14:39> Senior Resident Attestation: I supervised/discussed management plan with cad intern physician Dr. Vu, and was involved in the care of this patient. I personally saw and examined the patient and discussed the assessment and plan with the entire medicine team, including my attending. I agree with the assessment and plan as documented. Patient was seen and examined at bedside. No acute overnight events. Patient continues on GoLytely for colonoscopy preparation. No complaints today. Will continue current management and monitor patient. Patient's care was discussed with attending physician, Dr. Gagnon. Joaquin Zambrano MD PGY-2. Documentation for date of: 08/17/24 Subjective Subjective Interval history: 08/16: No overnight events, patient is seen and examined at bedside. Patient is resting comfortably and saturating on room air. Patient denies any abdominal pain, chest pain, nausea or vomiting. Currently patient is on GoLytely 200cc/h via G-tube as per Dr. Ledesma's request. Patient is scheduled for colonoscopy tomorrow. Patient has no other complaints. 08/17: No overnight events. Patient is seen and examined at bedside. Patient is resting comfortably and saturating on room air. Patient had continued GoLytely through the G-tube at 200 cc/h, per Dr. Ledesma's request we will increase it to 400 cc/h. Patient will get colonoscopy today. Patient denies any chest pain, abdominal pain nausea or vomiting. Patient has no complaints. Exam Vital Signs Temp Pulse Resp BP Pulse Ox O2 Del Method O2 Flow Rate 98.1 F 80 16 110/85 H 92 L Room Air 3 08/17/24 12:00 08/17/24 12:08/17/24 12:08/17/24 12:08/17/24 12:08/17/24 12:00 08/15/24 19:20 Narrative Exam GENERAL: A&Ox3 . Awake, Not in acute distress, elderly, thin appearing NEURO: no focal neurological deficits HEENT: Atraumatic, Normocephalic. mucous membranes moist. Eyes open, symmetrical, & clear HEART: Normal Heart Sounds LUNGS: Clear to auscultation with no wheezing or crackles. ABDOMEN: soft, non-distended, non-tender, no guarding or rebound tenderness, PEG tube present SKIN: No Rash or ecchymoses EXTREMITIES: No edema, tenderness, able to move all 4 extremities, pedal pulses palpated Objective Labs 08/17/24 05:00 08/17/24 05:00 Labs: Laboratory Results - last 24 hr 08/17/24 05:00 WBC 2.2 L RBC 2.46 L Hgb 8.2 L Hct 24.9 L MCV 101 H MCH 33.3 MCHC 32.9 RDW Std Deviation 90.9 H Plt Count 63 L Neut % (Auto) 62 Lymph % (Auto) 28 [place] % (Auto) 5 Eos % (Auto) 1 Baso % (Auto) 0 Neut # (Auto) 1.4 L Lymph # (Auto) 0.[address] [place] # (Auto) 0.1 Eos # (Auto) 0.0 Baso # (Auto) 0.0 Immature Gran # (Auto) 0.09 H Absolute Nucleated RBC 0.32 H Immature Gran % 4 H Nucleated RBC % 14 H Sodium 144 Potassium 3.1 L Chloride 109 H Carbon Dioxide 27.9 Anion Gap 7 BUN 12 Creatinine 0.7 Estim Creat Clear Calc 37.4 L eGFR > 60 BUN/Creatinine Ratio 17 Glucose 78 Calculated Osmolality 285 Calcium 7.6 L Misc Test Result Platelets confirmed Quality Measures Quality Measures VTE prophylaxis Advance care planning discussed with:: patient and child Assessment & Plan Assessment Current Active Medications: Generic Name Dose Route Start Last Admin Trade Name Freq PRN Reason Stop Dose Admin Acetaminophen 650 mg 08/11/24 02:10 Acetaminophen 325 Mg Tablet PO 09/10/24 02:09 Q6H PRN PAIN OR FEVER > 101 Artificial Tears 0 drop 08/12/24 15:04 08/13/24 09:43 Artificial Tears 225 Drop/15 Ml Btl BOTH EYES 09/11/24 15:03 2 drops PRN PRN Administration TO KEEP EYES MOIST Artificial Tears 0 drop 08/12/24 22:00 08/17/24 05:16 Artificial Tears 225 Drop/15 Ml Btl BOTH EYES 09/11/24 21:59 1 drop TID LAKESHA Administration Sunitib Malate 25 Mg 0 ea 08/12/24 09:00 08/17/24 08:24 Capsules PO 09/11/24 08:59 1 capsule DAILY LAKESHA Administration Mirtazapine 7.5 mg 08/12/24 21:00 08/16/24 21:26 Mirtazapine 15 Mg Tablet PO 09/11/24 20:59 7.5 mg HS LAKESHA Administration Ondansetron HCl 4 mg 08/11/24 02:10 Ondansetron Inj 2 Mg/Ml Inj 2 Ml IV 09/10/24 02:09 Q6H PRN NAUSEA OR VOMITING Protocol Pantoprazole Sodium 40 mg 08/11/24 09:00 08/17/24 08:10 Pantoprazole Inj 40 Mg Vial IVP 09/10/24 08:59 40 mg Q12HR LAKESHA Administration Plan Ms. Harris is a Tagalog-speaking 88-year-old female with a past medical history of gastric cancer status post partial gastrectomy and currently on sunitinib malate chemotherapy (previously on nilotinib) who presents to the ED for bright red blood per rectum for 2 days with generalized weakness and decreased appetite. #Symptomatic anemia. #Pancytopenia. #GI bleed. -WBC 2.2, Hgb 8.2, HCT 24.9, platelet 63. -Presents with 1 episode of bright red blood in stool setting of chronic anemia and generalized weakness. -Initial hemoglobin 10.5, downtrending to 9.2. FOBT positive. -EGD did not show any source of bleeding. Only showed esophagitis in the lower third of the esophagus Plan: ? GI consulted, appreciate recommendations. ? increase golytely via NG tube at 400cc/hr - Patient is planned for colonoscopy today ? Dietitian referral given decreased p.o. intake. ? Monitor H&H. ? Pantoprazole 40 mg IV twice daily. #Cachexia. -BMI 17.1, total protein 4.8, albumin 1.8 Plan: ?Ensure with every meal. -Consult dietitian. -Resumed home mirtazapine 7.5mg. #Hypokalemia -AM labs showed potassium 3.1 -Patient is given 40 mEq IV x 1 #Elevated troponins- resolved. #NSTEMI type II, demand ischemia. Initial troponin 0.046 -> 0.049, likely due to chronic anemia. #Atrial fibrillation, new onset. No history of atrial fibrillation, [id number] 3. Will defer anticoagulation given GI bleed. #History of gastric cancer. #Leukopenia. #Thrombocytopenia. Per son, patient currently takes sunitinib malate and previously on nilotinib (Tasigna). -Resume home meds Disposition: telemetry- waiting for colonoscopy Diet: CLD. Lines: peripheral and PEG tube DVT prophylaxis: SCDs. GI prophylaxis: pantoprazole 40 mg IV BID. CODE STATUS: full code. Assessment and plan discussed with my senior resident Dr. Zambrano & attending physician Dr. Kalin Vu (PGY-1)- Internal medicine resident Attending Provider Attestation/Addendum IMorenita, , attest that I was physically present for the cervantes portions of the service and evaluated the patient with the resident and I reviewed and discussed the case with the resident and agree with the resident's findings and plans of care as documented above Patient seen and evaluated this AM. Daughter is at bedside. Patient had jello this AM and was in no acute distress. Per nurse, patient still had stool despite receiving GoLytely. Will increase rate of Golytely. She is otherwise scheduled for colonoscopy this evening. Anticipate DC within next 48hrs to advance tube feeds following colonoscopy.
--- NOTE | 2024-08-17 14:24 | PC.SS ---
Rounding Note: Plan is for the patient to obtain colonoscopy today.
--- NOTE | 2024-08-17 16:14 | EKG_ITS ---
[facility] Test Date: 2024-08-17 Pat Name: JACOBO MCNEAL [facility] Sole Trimmer: KAVON : 1935 Requested By: Chilo Vu Order Number: [id number] Reading MD: Chilo Vu Measurements Intervals [place] Rate: 135 P: 107 MI: 168 QRS: 5 QRSD: 77 T: 91 QT: 366 QTc: 550 Interpretive Statements SINUS TACHYCARDIA LOW QRS VOLTAGE IN EXTREMITY LEADS MODERATE T-WAVE ABNORMALITY, CONSIDER ANTERIOR ISCHEMIA Compared to ECG 07/27/2024 00:17:25 Possible ischemia now present Sinus rhythm no longer present Prolonged QT interval no longer present T-wave abnormality still present /store/S0/[id number]/ecg/[id number].pdf
[2024-08-17] MEDS: SODIUM CHLORIDE 0.9% 1000 ML 1,000 ML 999 ML IV (16:31)
[2024-08-17] MEDS: MIRTAZAPINE 15 MG TABLET 7.5 MG PO (21:03)
[2024-08-18] VITALS: BP 123/81; PULSE 117; PULSE 99; RESP 12; TEMP 37.3; O2SAT 99
--- NOTE | 2024-08-18 02:34 | PC.NURSE ---
0145 Hospitalists on floor, clarified MD Dr Ledesma notes to start PEG feeding if RN to start feeds with dietary recommendations order. Pt sleeping on clear liquid diet, no orders recieved to start tube feedings at this time, hospitalist to inform day team regarding start of PEG feeding.
[2024-08-18 04:00] VITALS: BP 133/89; PULSE 84; PULSE 98; RESP 24; TEMP 37.4; O2SAT 95
[2024-08-18] MEDS: Artificial Tears 225 DROP/15 ML BTL BOTH EYES ×2 (05:38→20:51)
[2024-08-18 05:53] LABS: Basophils % (Auto) 0 % (0-2.5); Eosinophils % (Auto) 0 % (0-10); Hematocrit 24.8 % (36.0-46.0); Immature Granulocytes % (Auto) 2 % (0-0); Immature Granulocytes Auto 0.04 Thou/mm3 (0.00-0.00); Lymphocytes # (Auto) 0.8 Thou/mm3 (1.0-4.8); Lymphocytes % (Auto) 30 % (10-50); Mean Corpuscular HGB Conc 32.7 g/dl (31.0-37.0); Mean Corpuscular Hemoglobin 33.5 pg (25.0-35.0); Mean Corpuscular Volume 103 fL (80-100); Monocytes # (Auto) 0.2 Thou/mm3 (0.0-0.8); Monocytes % (Auto) 7 % (0-12); Neutrophils # (Auto) 1.6 Thou/mm3 (1.8-7.7); Neutrophils % (Auto) 62 % (37-80); Nucleated Red Blood Cell # 0.28 Thou/mm3 (0.00-0.00); Nucleated Red Blood Cell % 11 /100 WBC (0); RDW Standard Deviation 92.6 fL (36.4-46.3); Red Blood Count 2.42 Miln/mm3 (4.00-5.20)
[2024-08-18 06:00] LABS: Hemoglobin 8.1 g/dL (12.0-16.0); Platelet Count 62 Thou/mm3 (140-440); White Blood Count 2.6 Thou/mm3 (3.6-11.0)
[2024-08-18 06:14] LABS: Slide Review Platelets confirmed
[2024-08-18 06:32] LABS: Anion Gap 7 (7-16); BUN/Creatinine Ratio 11 Ratio (12-20); Blood Urea Nitrogen 8 mg/dL (9-23); Calcium 7.2 mg/dL (8.3-10.6); Carbon Dioxide 24.8 mMol/L (20.0-31.0); Chloride 110 mMol/L (98-107); Creatinine (Component) 0.7 mg/dL (0.6-1.3); Estimated Creatinine Clearance 36.5 mL/min (>60); Glucose 67 mg/dL (74-106); Osmolality,Calculated 279 (275-295); Potassium 3.6 mMol/L (3.4-5.1); Sodium 142 mMol/L (136-145); eGFR > 60 See Note
[2024-08-18 08:00] VITALS: BP 111/58; PULSE 90; PULSE 93; RESP 19; TEMP 37; O2SAT 96
[2024-08-18] MEDS: SUNITINIB PO (08:33)
[2024-08-18] MEDS: PANTOPRAZOLE INJ 40 MG VIAL IVP ×2 (08:33→20:48)
--- NOTE | 2024-08-18 09:39 | PC.SS ---
Update: Plan is to begin PEG feedings today. PEG placed on 08-15-24.
[2024-08-18 11:29] LABS: Magnesium 1.8 mg/dL (1.6-2.6); Phosphorous 2.4 mg/dL (2.4-5.1)
[2024-08-18 12:00] VITALS: BP 135/81; PULSE 84; PULSE 92; RESP 16; TEMP 37.1; O2SAT 93
[2024-08-18] MEDS: Magnesium Sulfate 2 GM Ivpb 2 GM/50 ML BAG IV (13:57)
--- NOTE | 2024-08-18 14:17 | PC.SS ---
Rounding Note: Plan is to increase patient's PEG feedings.
--- NOTE | 2024-08-18 15:20 | ESPR_ITS ---
<Statement entered by Joaquin Zambrano MD - 08/18/24 16:26> Senior Resident Attestation: I supervised/discussed management plan with sport internship physician Dr. Vu, and was involved in the care of this patient. I personally saw and examined the patient and discussed the assessment and plan with the entire medicine team, including my attending. I agree with the assessment and plan as documented. Patient was seen and examined at the bedside. No overnight events. She underwent colonoscopy last night. She was started on PEG tube feeds, will titrate feeds until tomorrow. We will likely discharge her tomorrow. Patient's care was discussed with attending physician, Dr. Gagnon. Joaquin Zambrano MD PGY-2. Documentation for date of: 08/18/24 Subjective Subjective Interval history: 08/16: No overnight events, patient is seen and examined at bedside. Patient is resting comfortably and saturating on room air. Patient denies any abdominal pain, chest pain, nausea or vomiting. Currently patient is on GoLytely 200cc/h via G-tube as per Dr. Ledesma's request. Patient is scheduled for colonoscopy tomorrow. Patient has no other complaints. 08/17: No overnight events. Patient is seen and examined at bedside. Patient is resting comfortably and saturating on room air. Patient had continued GoLytely through the G-tube at 200 cc/h, per Dr. Ledesma's request we will increase it to 400 cc/h. Patient will get colonoscopy today. Patient denies any chest pain, abdominal pain nausea or vomiting. Patient has no complaints. 08/18: No overnight events, patient had a colonoscopy yesterday. Patient is seen and examined at bedside this morning. Patient is saturating on room air, eating her liquid diet breakfast. Patient requested sugar for her coffee patient denies any chest pain, abdominal pain, nausea or vomiting. Exam Vital Signs Temp Pulse Resp BP Pulse Ox O2 Del Method O2 Flow Rate 98.7 F 84 16 135/81 H 93 L Room Air 3 08/18/24 12:00 08/18/24 12:00 08/18/24 12:00 08/18/24 12:00 08/18/24 12:00 08/18/24 12:00 08/17/24 20:40 Narrative Exam GENERAL: A&Ox3 . Awake, Not in acute distress, elderly, thin appearing NEURO: no focal neurological deficits HEENT: Atraumatic, Normocephalic. mucous membranes moist. Eyes open, symmetrical, & clear HEART: Normal Heart Sounds LUNGS: Clear to auscultation with no wheezing or crackles. ABDOMEN: soft, non-distended, non-tender, no guarding or rebound tenderness, PEG tube present SKIN: No Rash or ecchymoses EXTREMITIES: No edema, tenderness, able to move all 4 extremities, pedal pulses palpated Objective Labs 08/18/24 04:58 08/18/24 04:58 Labs: Laboratory Results - last 24 hr 08/18/24 04:58 WBC 2.6 L RBC 2.42 L Hgb 8.1 L Hct 24.8 L MCV 103 H MCH 33.5 MCHC 32.7 RDW Std Deviation 92.6 H Plt Count 62 L Neut % (Auto) 62 Lymph % (Auto) 30 [place] % (Auto) 7 Eos % (Auto) 0 Baso % (Auto) 0 Neut # (Auto) 1.6 L Lymph # (Auto) 0.8 L [place] # (Auto) 0.2 Eos # (Auto) 0.0 Baso # (Auto) 0.0 Immature Gran # (Auto) 0.04 H Absolute Nucleated RBC 0.28 H Immature Gran % 2 H Nucleated RBC % 11 H Sodium 142 Potassium 3.6 D Chloride 110 H Carbon Dioxide 24.8 Anion Gap 7 BUN 8 L Creatinine 0.7 Estim Creat Clear Calc 36.5 L eGFR > 60 BUN/Creatinine Ratio 11 L Glucose 67 L Calculated Osmolality 279 Calcium 7.2 L Phosphorus 2.4 Magnesium 1.8 Misc Test Result Platelets confirmed Quality Measures Quality Measures VTE prophylaxis Advance care planning discussed with:: child Assessment & Plan Assessment Current Active Medications: Generic Name Dose Route Start Last Admin Trade Name Freq PRN Reason Stop Dose Admin Acetaminophen 650 mg 08/11/24 02:10 Acetaminophen 325 Mg Tablet PO 09/10/24 02:09 Q6H PRN PAIN OR FEVER > 101 Artificial Tears 0 drop 08/12/24 15:04 08/13/24 09:43 Artificial Tears 225 Drop/15 Ml Btl BOTH EYES 09/11/24 15:03 2 drops PRN PRN Administration TO KEEP EYES MOIST Artificial Tears 0 drop 08/12/24 22:00 08/18/24 13:10 Artificial Tears 225 Drop/15 Ml Btl BOTH EYES 12/20/24 21:59 Not Given TID LAKESHA Sunitib Malate 25 Mg 0 ea 08/12/24 09:00 08/18/24 08:33 Capsules PO 09/11/24 08:59 1 capsule DAILY LAKESHA Administration Magnesium Sulfate 2 gm in 50 mls @ 25 mls/hr 08/18/24 13:47 08/18/24 13:57 Magnesium Sulfate Ivpb IV 08/18/24 15:46 25 mls/hr X1 ONE Administration Mirtazapine 7.5 mg 08/12/24 21:00 08/17/24 21:03 Mirtazapine 15 Mg Tablet PO 09/11/24 20:59 7.5 mg HS LAKESHA Administration Multivitamins 1 tab 08/18/24 15:30 Multivitamins Tablet PO 09/17/24 15:29 QDAY LAKESHA Ondansetron HCl 4 mg 08/11/24 02:10 Ondansetron Inj 2 Mg/Ml Inj 2 Ml IV 09/10/24 02:09 Q6H PRN NAUSEA OR VOMITING Protocol Pantoprazole Sodium 40 mg 08/11/24 09:00 08/18/24 08:33 Pantoprazole Inj 40 Mg Vial IVP 09/10/24 08:59 40 mg Q12HR LAKESHA Administration Thiamine HCl 100 mg 08/18/24 15:30 Thiamine 100 Mg Tablet PO 09/17/24 15:29 QDAY LAKESHA Plan Ms. Harris is a Tagalog-speaking 88-year-old female with a past medical history of gastric cancer status post partial gastrectomy and currently on sunitinib malate chemotherapy (previously on nilotinib) who presents to the ED for bright red blood per rectum for 2 days with generalized weakness and decreased appetite. #Symptomatic anemia. #Pancytopenia. #GI bleed. -WBC 2.2, Hgb 8.2, HCT 24.9, platelet 63. -Presents with 1 episode of bright red blood in stool setting of chronic anemia and generalized weakness. -Initial hemoglobin 10.5, downtrending to 9.2. FOBT positive. -EGD did not show any source of bleeding. Only showed esophagitis in the lower third of the esophagus -Colonoscopy-limited to mid transverse colon, findings include hemorrhoids found in the perianal exam and mild diverticulosis in sigmoid colon no evidence of diverticular bleeding Plan: ? GI consulted, appreciate recommendations. -Per GI Dr. Ledesma's recommendation -Start make feeding and advance diet as tolerated -Outpatient air contrast barium enema when patient is more stable -Dysphagia 2 diet orders in as tolerated -Refeeding via PEG tube started -Feeding instructions per dietitian recommendations: vital 1.2 at 20 ml/hr via PEG tube by pump- will consider increasing after 8 hours ? Dietitian recommendations: Thiamine, multivitamins ordered ? Monitor daily labs for potassium, phosphorus, magnesium ? Pantoprazole 40 mg IV twice daily. #Cachexia. -BMI 17.1, total protein 4.8, albumin 1.8 Plan: -PEG tube feeding began -08/18/24 ?Ensure with every meal. -Consult dietitian. -Resumed home mirtazapine 7.5mg. #Hypokalemia- resolved -AM labs showed potassium 3.6 - will continue to monitor #Elevated troponins- resolved. #NSTEMI type II, demand ischemia. Initial troponin 0.046 -> 0.049, likely due to chronic anemia. #Atrial fibrillation, new onset. No history of atrial fibrillation, [id number] 3. Will defer anticoagulation given GI bleed. #History of gastric cancer. #Leukopenia. #Thrombocytopenia. Per son, patient currently takes sunitinib malate and previously on nilotinib (Tasigna). -Resume home meds Disposition: telemetry- waiting for colonoscopy Diet: CLD. Lines: peripheral and PEG tube DVT prophylaxis: SCDs. GI prophylaxis: pantoprazole 40 mg IV BID. CODE STATUS: full code. Assessment and plan discussed with my senior resident Dr. Zambrano & attending physician Dr. Kalin Vu (PGY-1)- Internal medicine resident Attending Provider Attestation/Addendum Morenita Brooke, DO, attest that I was physically present for the cervantes portions of the service and evaluated the patient with the resident and I reviewed and discussed the case with the resident and agree with the resident's findings and plans of care as documented above Patient seen and evaluated this AM. Daughter is at bedside. Patient states that she wants to eat more solid food. Will start on dysphagia 2. Will start patient on tube feeds at 20 mL/h and advance every 8 hours as patient does not appear to have any signs of refeeding syndrome nor does she have any electrolyte disturbances. Patient can be discharged home with home health once tube feeds are at goal of 45 mL an hour. Case was discussed with dietitian and terms of advancing diet. Continue with current management otherwise. Anticipate discharge within the next 24 to 48 hours.
[2024-08-18] MEDS: MULTIVITAMINS TABLET 1 TAB PO (15:31)
[2024-08-18] MEDS: THIAMINE 100 MG TABLET PO (15:31)
[2024-08-18 16:00] VITALS: BP 134/79; PULSE 90; PULSE 98; RESP 20; TEMP 36.8; O2SAT 96
--- NOTE | 2024-08-18 19:13 | PD.IMPROG ---
Documentation for date of: 08/18/24 Subjective Subjective Interval history: Resting comfortably in bed On room air Abdomen is soft nontender and benign PEG tube in place Exam Vital Signs Temp Pulse Resp BP Pulse Ox O2 Del Method O2 Flow Rate 98.2 F 90 20 134/79 H 96 Room Air 3 08/18/24 16:00 08/18/24 16:00 08/18/24 16:00 08/18/24 16:00 08/18/24 16:00 08/18/24 16:00 08/17/24 20:40 Objective Labs 08/18/24 04:58 08/18/24 04:58 Labs: Laboratory Results - last 24 hr 08/18/24 04:58 WBC 2.6 L RBC 2.42 L Hgb 8.1 L Hct 24.8 L MCV 103 H MCH 33.5 MCHC 32.7 RDW Std Deviation 92.6 H Plt Count 62 L Neut % (Auto) 62 Lymph % (Auto) 30 [place] % (Auto) 7 Eos % (Auto) 0 Baso % (Auto) 0 Neut # (Auto) 1.6 L Lymph # (Auto) 0.8 L [place] # (Auto) 0.2 Eos # (Auto) 0.0 Baso # (Auto) 0.0 Immature Gran # (Auto) 0.04 H Absolute Nucleated RBC 0.28 H Immature Gran % 2 H Nucleated RBC % 11 H Sodium 142 Potassium 3.6 D Chloride 110 H Carbon Dioxide 24.8 Anion Gap 7 BUN 8 L Creatinine 0.7 Estim Creat Clear Calc 36.5 L eGFR > 60 BUN/Creatinine Ratio 11 L Glucose 67 L Calculated Osmolality 279 Calcium 7.2 L Phosphorus 2.4 Magnesium 1.8 Misc Test Result Platelets confirmed Impressions Impression: # Gastric carcinoma on chemotherapy at the moment # Incomplete colonoscopy because of multiple factors Outpatient ACBE Continue current management Assessment & Plan A&P Narrative # 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 and episode of hematochezia Obvious cause of bleeding is gastric carcinoma however there could be additional source of bleeding from the lower GI tract Initial plan of care is to do an upper endoscopy to see if there is an active bleeding going on and if that is negative we will consider doing a fibrotic colonoscopy examination Informed consent obtained from the family and we will proceed with the procedure Other medical problems include the following # A-fib with RVR rate controlled # Elevated troponin # come back to normal # Cachexia with hypoproteinemia and hypoalbuminemia Will follow the patient Thank you very much for the opportunity to participate in the care of this patient Time Spent With Patient Time: Total time spent is greater than 50% in coordination of care (as documented) at patient's floor/unit and/or counseling patient:
[2024-08-18 20:00] VITALS: BP 126/78; PULSE 102; PULSE 123; RESP 21; TEMP 37; O2SAT 91
[2024-08-18] MEDS: MIRTAZAPINE 15 MG TABLET 7.5 MG PO (20:49)
[2024-08-19] VITALS (8 sets, daily range): BP systolic 103–114; BP diastolic 65–78; PULSE 80–106; RESP 12–16; TEMP 36.2–36.6; O2SAT 90–93; BMI 17.6
[2024-08-19] MEDS: Artificial Tears 225 DROP/15 ML BTL BOTH EYES ×2 (05:44→15:03)
[2024-08-19] MEDS: ACETAMINOPHEN 325 MG TABLET 650 MG PO (06:26)
[2024-08-19 07:39] LABS: Phosphorous 2.2 mg/dL (2.4-5.1)
[2024-08-19 08:24] LABS: Basophils % (Auto) 0 % (0-2.5); Eosinophils % (Auto) 0 % (0-10); Hematocrit 24.8 % (36.0-46.0); Immature Granulocytes % (Auto) 1 % (0-0); Immature Granulocytes Auto 0.04 Thou/mm3 (0.00-0.00); Lymphocytes # (Auto) 1.1 Thou/mm3 (1.0-4.8); Lymphocytes % (Auto) 32 % (10-50); Mean Corpuscular HGB Conc 32.7 g/dl (31.0-37.0); Mean Corpuscular Hemoglobin 33.8 pg (25.0-35.0); Mean Corpuscular Volume 103 fL (80-100); Monocytes # (Auto) 0.2 Thou/mm3 (0.0-0.8); Monocytes % (Auto) 6 % (0-12); Neutrophils # (Auto) 2.1 Thou/mm3 (1.8-7.7); Neutrophils % (Auto) 60 % (37-80); Nucleated Red Blood Cell % 17 /100 WBC (0); RDW Standard Deviation 95.1 fL (36.4-46.3); White Blood Count 3.5 Thou/mm3 (3.6-11.0)
[2024-08-19 08:29] LABS: Hemoglobin 8.1 g/dL (12.0-16.0); Platelet Count 68 Thou/mm3 (140-440)
[2024-08-19 08:53] LABS: Alanine Aminotransferase 12 U/L (10-49); Albumin, Serum 1.6 gm/dL (3.4-4.8); Albumin/Globulin Ratio 0.5 (1.2-2.2); Alkaline Phosphatase 58 U/L (46-116); Anion Gap 4 (7-16); Aspartate Amino Transferase 54 U/L (0-34); BUN/Creatinine Ratio 16 Ratio (12-20); Bilirubin,Total 0.5 mg/dL (0.3-1.2); Blood Urea Nitrogen 13 mg/dL (9-23); Calcium 7.2 mg/dL (8.3-10.6); Calcium (Corrected) 9.1 mg/dL (8.5-10.1); Carbon Dioxide 28.2 mMol/L (20.0-31.0); Chloride 107 mMol/L (98-107); Creatinine (Component) 0.8 mg/dL (0.6-1.3); Estimated Creatinine Clearance 31.9 mL/min (>60); Glucose 88 mg/dL (74-106); Osmolality,Calculated 276 (275-295); Potassium 3.8 mMol/L (3.4-5.1); Sodium 139 mMol/L (136-145); Total Protein 4.6 gm/dL (5.7-8.2); eGFR > 60 See Note
[2024-08-19] MEDS: THIAMINE 100 MG TABLET PO (09:51)
[2024-08-19] MEDS: MULTIVITAMINS TABLET 1 TAB PO (09:51)
[2024-08-19] MEDS: PANTOPRAZOLE INJ 40 MG VIAL IVP ×2 (09:51→20:31)
[2024-08-19] MEDS: SUNITINIB PO (09:53)
[2024-08-19 10:54] LABS: Slide Review Platelets confirmed
--- NOTE | 2024-08-19 12:54 | PC.CM ---
I did not have orders for formula feeds and recommendations from dietary. I spoke to Justine and she was going to follow up t see if they are ready to put in recommendations for discharge. She stated she was going to check in with hospitality services manager because she heard their might be some concerns with family dynamics. Justine states she will get back to me.
--- NOTE | 2024-08-19 15:39 | PC.SS ---
Rounding note: pending tube feeding recommendations.
--- NOTE | 2024-08-19 17:56 | PD.RESPRO ---
Documentation for date of: 08/19/24 Subjective Subjective Interval history: No overnight events. Patient seen and examined at bedside patient is currently resting comfortably in bed I woke her up to asked if she would like to eat her breakfast which was sitting on the table next to her. Patient is saturating on room air. Patient denies any abdominal pain nausea or vomiting. PEG tube is in place. Exam Vital Signs Temp Pulse Resp BP Pulse Ox O2 Del Method O2 Flow Rate 97.2 F 90 16 110/74 93 L Room Air 3 08/19/24 16:00 08/19/24 16:00 08/19/24 16:00 08/19/24 16:00 08/19/24 16:00 08/19/24 16:00 08/17/24 20:40 Narrative Exam GENERAL: A&Ox3 . Awake, Not in acute distress, elderly, thin appearing NEURO: no focal neurological deficits HEENT: Atraumatic, Normocephalic. mucous membranes moist. Eyes open, symmetrical, & clear HEART: Normal Heart Sounds LUNGS: Clear to auscultation with no wheezing or crackles. ABDOMEN: soft, non-distended, non-tender, no guarding or rebound tenderness, PEG tube present SKIN: No Rash or ecchymoses EXTREMITIES: No edema, tenderness, able to move all 4 extremities, pedal pulses palpated Objective Labs 08/19/24 06:42 08/19/24 06:42 Labs: Laboratory Results - last 24 hr 08/19/24 06:42 WBC 3.5 L RBC 2.40 L Hgb 8.1 L Hct 24.8 L MCV 103 H MCH 33.8 MCHC 32.7 RDW Std Deviation 95.1 H Plt Count 68 L Neut % (Auto) 60 Lymph % (Auto) 32 [place] % (Auto) 6 Eos % (Auto) 0 Baso % (Auto) 0 Neut # (Auto) 2.1 Lymph # (Auto) 1.1 [place] # (Auto) 0.2 Eos # (Auto) 0.0 Baso # (Auto) 0.0 Immature Gran # (Auto) 0.04 H Absolute Nucleated RBC 0.60 H Immature Gran % 1 H Nucleated RBC % 17 H Sodium 139 Potassium 3.8 Chloride 107 Carbon Dioxide 28.2 Anion Gap 4 L BUN 13 Creatinine 0.8 Estim Creat Clear Calc 31.9 L eGFR > 60 BUN/Creatinine Ratio 16 Glucose 88 Calculated Osmolality 276 Calcium 7.2 L Corrected Calcium 9.1 Phosphorus 2.2 L Magnesium 2.0 Total Bilirubin 0.5 AST 54 H ALT 12 Alkaline Phosphatase 58 Total Protein 4.6 L Albumin 1.6 L Globulin 3.0 Albumin/Globulin Ratio 0.5 L Misc Test Result Platelets confirmed Quality Measures Quality Measures VTE prophylaxis Advance care planning discussed with:: child Assessment & Plan Assessment Current Active Medications: Generic Name Dose Route Start Last Admin Trade Name Priyanka PRN Reason Stop Dose Admin Acetaminophen 650 mg 08/11/24 02:10 08/19/24 06:26 Acetaminophen 325 Mg Tablet PO 09/10/24 02:09 650 mg Q6H PRN Administration PAIN OR FEVER > 101 Artificial Tears 0 drop 08/12/24 15:04 08/13/24 09:43 Artificial Tears 225 Drop/15 Ml Btl BOTH EYES 09/11/24 15:03 2 drops PRN PRN Administration TO KEEP EYES MOIST Artificial Tears 0 drop 08/12/24 22:00 08/19/24 15:03 Artificial Tears 225 Drop/15 Ml Btl BOTH EYES 09/11/24 21:59 2 drop TID LAKESHA Administration Sunitib Malate 25 Mg 0 ea 08/12/24 09:00 08/19/24 09:53 Capsules PO 09/11/24 08:59 1 capsule DAILY LAKESHA Administration Mirtazapine 7.5 mg 08/12/24 21:00 08/18/24 20:49 Mirtazapine 15 Mg Tablet PO 09/11/24 20:59 7.5 mg HS LAKESHA Administration Multivitamins 1 tab 08/18/24 15:30 08/19/24 09:51 Multivitamins Tablet PO 09/17/24 15:29 1 tab QDAY LAKESHA Administration Ondansetron HCl 4 mg 08/11/24 02:10 Ondansetron Inj 2 Mg/Ml Inj 2 Ml IV 09/10/24 02:09 Q6H PRN NAUSEA OR VOMITING Protocol Pantoprazole Sodium 40 mg 08/11/24 09:00 08/19/24 09:51 Pantoprazole Inj 40 Mg Vial IVP 09/10/24 08:59 40 mg Q12HR LAKESHA Administration Thiamine HCl 100 mg 08/18/24 15:30 08/19/24 09:51 Thiamine 100 Mg Tablet PO 09/17/24 15:29 100 mg QDAY LAKESHA Administration Plan Ms. Sobrepena is a Tagalog-speaking 88-year-old female with a past medical history of gastric cancer status post partial gastrectomy and currently on sunitinib malate chemotherapy (previously on nilotinib) who presents to the ED for bright red blood per rectum for 2 days with generalized weakness and decreased appetite. #Symptomatic anemia. #Pancytopenia. #GI bleed. -WBC 3.5, Hgb 8.1, HCT 24.8, platelet 68. -Presents with 1 episode of bright red blood in stool setting of chronic anemia and generalized weakness. -Initial hemoglobin 10.5. FOBT positive. -EGD did not show any source of bleeding. Only showed esophagitis in the lower third of the esophagus -Colonoscopy-limited to mid transverse colon, findings include hemorrhoids found in the perianal exam and mild diverticulosis in sigmoid colon no evidence of diverticular bleeding Plan: ? GI consulted, appreciate recommendations. -Per GI Dr. Ledesma's recommendation -Start make feeding and advance diet as tolerated -Outpatient air contrast barium enema when patient is more stable -Dysphagia 2 diet orders in as tolerated -Refeeding via PEG tube started -Feeding instructions per dietitian recommendations: vital 1.2 at 20 ml/hr via PEG tube by pump- will consider increasing after 8 hours ? Dietitian recommendations: Thiamine, multivitamins ordered ? Monitor daily labs for potassium, phosphorus, magnesium ? Pantoprazole 40 mg IV twice daily. #Cachexia. #PEG tube placed 08/17/2024 -BMI 17.1, total protein 4.8, albumin 1.8 Plan: -PEG tube feeding began -08/18/24 -Feeding instructions via tube - vital 1.2 at 20 ml/hr via PEG tube by pump- will consider increasing after 8 hours ?Ensure with every meal. -Consult dietitian. -Resumed home mirtazapine 7.5mg. #Hypokalemia- resolved -AM labs showed potassium 3.6 - will continue to monitor #Elevated troponins- resolved. #NSTEMI type II, demand ischemia. Initial troponin 0.046 -> 0.049, likely due to chronic anemia. #Atrial fibrillation, new onset. No history of atrial fibrillation, [id number] 3. Will defer anticoagulation given GI bleed. #History of gastric cancer. #Leukopenia. #Thrombocytopenia. Per son, patient currently takes sunitinib malate and previously on nilotinib (Tasigna). -Resume home meds Disposition: telemetry- waiting for colonoscopy Diet: CLD. Lines: peripheral and PEG tube DVT prophylaxis: SCDs. GI prophylaxis: pantoprazole 40 mg IV BID. CODE STATUS: full code. Assessment and plan discussed with my attending physician Dr. Marquise Vu (PGY-1)- Internal medicine resident Attending Provider Attestation/Addendum Patient was seen and examined. She is now on PEG tube feeding. She has gastric cancer, she is cachectic. The patient has pancytopenia. She had a GI bleed. Hemoglobin is stable. Vital signs are stable. She has chronic A-fib, heart rate in the low 100s. Discussed with housestaff.
--- NOTE | 2024-08-19 18:18 | PC.CM ---
I sent referral to [facility] and to [facility]. Pending acceptance.
--- NOTE | 2024-08-19 19:15 | ESPR_ITS ---
Documentation for date of: 08/19/24 Subjective Subjective Interval history: No leakage at the PEG site Alert and oriented Laying comfortably in bed Exam Vital Signs Temp Pulse Resp BP Pulse Ox O2 Del Method O2 Flow Rate 97.2 F 90 16 110/74 93 L Room Air 3 08/19/24 16:00 08/19/24 16:00 08/19/24 16:00 08/19/24 16:00 08/19/24 16:00 08/19/24 16:00 08/17/24 20:40 Objective Labs 08/19/24 06:42 08/19/24 06:42 Labs: Laboratory Results - last 24 hr 08/19/24 06:42 WBC 3.5 L RBC 2.40 L Hgb 8.1 L Hct 24.8 L MCV 103 H MCH 33.8 MCHC 32.7 RDW Std Deviation 95.1 H Plt Count 68 L Neut % (Auto) 60 Lymph % (Auto) 32 [place] % (Auto) 6 Eos % (Auto) 0 Baso % (Auto) 0 Neut # (Auto) 2.1 Lymph # (Auto) 1.1 [place] # (Auto) 0.2 Eos # (Auto) 0.0 Baso # (Auto) 0.0 Immature Gran # (Auto) 0.04 H Absolute Nucleated RBC 0.60 H Immature Gran % 1 H Nucleated RBC % 17 H Sodium 139 Potassium 3.8 Chloride 107 Carbon Dioxide 28.2 Anion Gap 4 L BUN 13 Creatinine 0.8 Estim Creat Clear Calc 31.9 L eGFR > 60 BUN/Creatinine Ratio 16 Glucose 88 Calculated Osmolality 276 Calcium 7.2 L Corrected Calcium 9.1 Phosphorus 2.2 L Magnesium 2.0 Total Bilirubin 0.5 AST 54 H ALT 12 Alkaline Phosphatase 58 Total Protein 4.6 L Albumin 1.6 L Globulin 3.0 Albumin/Globulin Ratio 0.5 L Misc Test Result Platelets confirmed Impressions Impression: # Gastric carcinoma on immunotherapy # Failure to thrive requiring placement of a PEG tube Assessment & Plan A&P Narrative # 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 and episode of hematochezia Obvious cause of bleeding is gastric carcinoma however there could be additional source of bleeding from the lower GI tract Initial plan of care is to do an upper endoscopy to see if there is an active bleeding going on and if that is negative we will consider doing a fibrotic colonoscopy examination Informed consent obtained from the family and we will proceed with the procedure Other medical problems include the following # A-fib with RVR rate controlled # Elevated troponin # come back to normal # Cachexia with hypoproteinemia and hypoalbuminemia Will follow the patient Thank you very much for the opportunity to participate in the care of this patient Time Spent With Patient Time: Total time spent is greater than 50% in coordination of care (as documented) at patient's floor/unit and/or counseling patient:
[2024-08-19] MEDS: MIRTAZAPINE 15 MG TABLET 7.5 MG PO (20:33)
[2024-08-20] VITALS (8 sets, daily range): BP systolic 101–135; BP diastolic 62–78; PULSE 93–115; RESP 14–23; TEMP 36.2–37.2; O2SAT 90–97
[2024-08-20] MEDS: Artificial Tears 225 DROP/15 ML BTL BOTH EYES ×2 (05:05→21:01)
--- NOTE | 2024-08-20 05:40 | PC.NURSE ---
Rashad, RN alerted Dr. Biggs that patient's heartrate is sustaining in the 120's and 130's. Dr. Adkins and Dr. Leal came to check on patient and heart rate. Dr. Adkins assessed patient and heart rate went back to normal.
--- NOTE | 2024-08-20 07:31 | PC.CM ---
[facility] accepted the pt. Booked [facility]. Lauren from [facility] responded Currently under review for Medicare. [facility] is pending and won't have the answer until Saturday if it's open . [facility] have not accepted the pt yet, pending response.
[2024-08-20 07:57] LABS: Basophils % (Auto) 0 % (0-2.5); Eosinophils % (Auto) 1 % (0-10); Hematocrit 25.1 % (36.0-46.0); Immature Granulocytes % (Auto) 1 % (0-0); Immature Granulocytes Auto 0.02 Thou/mm3 (0.00-0.00); Lymphocytes # (Auto) 0.8 Thou/mm3 (1.0-4.8); Lymphocytes % (Auto) 34 % (10-50); Mean Corpuscular HGB Conc 32.3 g/dl (31.0-37.0); Mean Corpuscular Hemoglobin 33.2 pg (25.0-35.0); Mean Corpuscular Volume 103 fL (80-100); Monocytes # (Auto) 0.1 Thou/mm3 (0.0-0.8); Monocytes % (Auto) 6 % (0-12); Neutrophils # (Auto) 1.4 Thou/mm3 (1.8-7.7); Neutrophils % (Auto) 58 % (37-80); Nucleated Red Blood Cell # 0.38 Thou/mm3 (0.00-0.00); Nucleated Red Blood Cell % 16 /100 WBC (0); RDW Standard Deviation 95.4 fL (36.4-46.3); Red Blood Count 2.44 Miln/mm3 (4.00-5.20)
[2024-08-20 08:11] LABS: Hemoglobin 8.1 g/dL (12.0-16.0); Platelet Count 66 Thou/mm3 (140-440); White Blood Count 2.4 Thou/mm3 (3.6-11.0)
[2024-08-20 08:12] LABS: Slide Review Platelets confirmed
[2024-08-20 08:30] LABS: Alanine Aminotransferase 8 U/L (10-49); Albumin, Serum 1.5 gm/dL (3.4-4.8); Albumin/Globulin Ratio 0.5 (1.2-2.2); Alkaline Phosphatase 62 U/L (46-116); Anion Gap 3 (7-16); Aspartate Amino Transferase 41 U/L (0-34); BUN/Creatinine Ratio 18 Ratio (12-20); Bilirubin,Total 0.5 mg/dL (0.3-1.2); Blood Urea Nitrogen 14 mg/dL (9-23); Carbon Dioxide 27.3 mMol/L (20.0-31.0); Chloride 106 mMol/L (98-107); Creatinine (Component) 0.8 mg/dL (0.6-1.3); Estimated Creatinine Clearance 31.6 mL/min (>60); Globulin 2.9 gm/dL (2.3-3.5); Glucose 115 mg/dL (74-106); Osmolality,Calculated 273 (275-295); Phosphorous 2.4 mg/dL (2.4-5.1); Potassium 3.9 mMol/L (3.4-5.1); Sodium 136 mMol/L (136-145); Total Protein 4.4 gm/dL (5.7-8.2); eGFR > 60 See Note
[2024-08-20] MEDS: MULTIVITAMINS TABLET 1 TAB PO (10:29)
[2024-08-20] MEDS: THIAMINE 100 MG TABLET PO (10:29)
[2024-08-20] MEDS: PANTOPRAZOLE INJ 40 MG VIAL IVP ×2 (10:29→20:32)
[2024-08-20] MEDS: SUNITINIB PO (10:29)
--- NOTE | 2024-08-20 12:16 | ESPR_ITS ---
Documentation for date of: 08/20/24 Subjective Subjective Interval history: Patient evaluated No leakage at the PEG site Exam Vital Signs Temp Pulse Resp BP Pulse Ox O2 Del Method O2 Flow Rate 98.9 F 107 H 16 113/74 93 L Nasal Cannula 3 08/20/24 08:00 08/20/24 08:00 08/20/24 08:00 08/20/24 08:00 08/20/24 08:00 08/20/24 08:00 08/20/24 08:00 Objective Labs 08/21/24 05:10 08/21/24 05:10 Labs: Laboratory Results - last 24 hr 08/20/24 07:42 WBC 2.4 L RBC 2.44 L Hgb 8.1 L Hct 25.1 L MCV 103 H MCH 33.2 MCHC 32.3 RDW Std Deviation 95.4 H Plt Count 66 L Neut % (Auto) 58 Lymph % (Auto) 34 [place] % (Auto) 6 Eos % (Auto) 1 Baso % (Auto) 0 Neut # (Auto) 1.4 L Lymph # (Auto) 0.8 L [place] # (Auto) 0.1 Eos # (Auto) 0.0 Baso # (Auto) 0.0 Immature Gran # (Auto) 0.02 H Absolute Nucleated RBC 0.38 H Immature Gran % 1 H Nucleated RBC % 16 H Sodium 136 Potassium 3.9 Chloride 106 Carbon Dioxide 27.3 Anion Gap 3 L BUN 14 Creatinine 0.8 Estim Creat Clear Calc 31.6 L eGFR > 60 BUN/Creatinine Ratio 18 Glucose 115 H Calculated Osmolality 273 L Calcium 7.0 L Corrected Calcium 9.0 Phosphorus 2.4 Magnesium 2.0 Total Bilirubin 0.5 AST 41 H ALT 8 L Alkaline Phosphatase 62 Total Protein 4.4 L Albumin 1.5 L Globulin 2.9 Albumin/Globulin Ratio 0.5 L Misc Test Result Platelets confirmed Impressions Impression: # Failure to thrive requiring PEG placement Continue current management Assessment & Plan A&P Narrative # 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 and episode of hematochezia Obvious cause of bleeding is gastric carcinoma however there could be additional source of bleeding from the lower GI tract Initial plan of care is to do an upper endoscopy to see if there is an active bleeding going on and if that is negative we will consider doing a fibrotic colonoscopy examination Informed consent obtained from the family and we will proceed with the procedure Other medical problems include the following # A-fib with RVR rate controlled # Elevated troponin # come back to normal # Cachexia with hypoproteinemia and hypoalbuminemia Will follow the patient Thank you very much for the opportunity to participate in the care of this patient Time Spent With Patient Time: Total time spent is greater than 50% in coordination of care (as documented) at patient's floor/unit and/or counseling patient:
--- NOTE | 2024-08-20 12:45 | PC.NURSE ---
per transfer RN, home health is not set up yet due to the holiday and needing PEG tube feeding supplies, pt not ready to discharge, [place] social welfare administrator notified of current status with home health and also agreed that pt is not able to discharge at this time. Dr. Zambrano notified.
[2024-08-20 13:00] LABS: Band Neutrophils (Manual) 6 % (0-6); Lymphocytes (Manual) 8 % (20-44); Neutrophils (Manual) 86 % (50-70)
[2024-08-20 13:10] LABS: Path Review Blood Smear Sent to Pathologist
--- NOTE | 2024-08-20 13:49 | PC.SS ---
Addendum entered by PAULO Noyola 08/20/24 15:38: Spoke with transfer Imer earlier and she informed if medical team feels patient can be discharged tomorrow after the holiday, pending update from insurance carrier in regards to home health SOC. If so, patient to be provided with enough supplies until home health is able to resume patient's care at home. She informed education can be provided by patient's nurse. City Solicitor Mariusz leblanc and charge nurse was updated. Original Note: SS update: patient is pending home health establishment for new PEG tube management. Notified patient's daughter, Angie Harris, who was at bed side. Angie informs she will be the point of contact to assist the patient once she is discharged back home. Patient's physical home address is [address] [place] [address]. Bed side nurse was updated.
--- NOTE | 2024-08-20 15:50 | PD.RESPRO ---
Documentation for date of: 08/20/24 Subjective Subjective Interval history: 08/20: No overnight events. Patient is seen and examined at bedside. patient is resting comfortably saturating on room air. Currently patient is has achieved goal rate of PEG tube feeding of 45 cc/h. Patient's mag and Phos is within normal limits. Currently patient has no complaints. Exam Vital Signs Temp Pulse Resp BP Pulse Ox O2 Del Method O2 Flow Rate 98.4 F 104 H 15 101/62 91 L Nasal Cannula 3 08/20/24 12:00 08/20/24 12:00 08/20/24 12:00 08/20/24 12:00 08/20/24 12:00 08/20/24 12:00 08/20/24 12:00 Narrative Exam GENERAL: A&Ox3 . Awake, Not in acute distress, elderly, thin appearing NEURO: no focal neurological deficits HEENT: Atraumatic, Normocephalic. mucous membranes moist. Eyes open, symmetrical, & clear HEART: Normal Heart Sounds LUNGS: Clear to auscultation with no wheezing or crackles. ABDOMEN: soft, non-distended, non-tender, no guarding or rebound tenderness, PEG tube present SKIN: No Rash or ecchymoses EXTREMITIES: No edema, tenderness, able to move all 4 extremities, pedal pulses palpated Objective Labs 08/21/24 05:10 08/21/24 05:10 Labs: Laboratory Results - last 24 hr 08/20/24 07:42 WBC 2.4 L RBC 2.44 L Hgb 8.1 L Hct 25.1 L MCV 103 H MCH 33.2 MCHC 32.3 RDW Std Deviation 95.4 H Plt Count 66 L Neut % (Auto) 58 Lymph % (Auto) 34 [place] % (Auto) 6 Eos % (Auto) 1 Baso % (Auto) 0 Neut # (Auto) 1.4 L Lymph # (Auto) 0.8 L [place] # (Auto) 0.1 Eos # (Auto) 0.0 Baso # (Auto) 0.0 Immature Gran # (Auto) 0.02 H Absolute Nucleated RBC 0.38 H Immature Gran % 1 H Neutrophils % (Manual) 86 H Nucleated RBC % 16 H Band Neutrophils 6 Lymphocytes (Manual) 8 L Smear Path Review Sent to Pathologist Sodium 136 Potassium 3.9 Chloride 106 Carbon Dioxide 27.3 Anion Gap 3 L BUN 14 Creatinine 0.8 Estim Creat Clear Calc 31.6 L eGFR > 60 BUN/Creatinine Ratio 18 Glucose 115 H Calculated Osmolality 273 L Calcium 7.0 L Corrected Calcium 9.0 Phosphorus 2.4 Magnesium 2.0 Total Bilirubin 0.5 AST 41 H ALT 8 L Alkaline Phosphatase 62 Total Protein 4.4 L Albumin 1.5 L Globulin 2.9 Albumin/Globulin Ratio 0.5 L Misc Test Result Platelets confirmed Quality Measures Quality Measures VTE prophylaxis Advance care planning discussed with:: child Assessment & Plan Assessment Current Active Medications: Generic Name Dose Route Start Last Admin Trade Name Freq PRN Reason Stop Dose Admin Acetaminophen 650 mg 08/11/24 02:10 08/19/24 06:26 Acetaminophen 325 Mg Tablet PO 09/10/24 02:09 650 mg Q6H PRN Administration PAIN OR FEVER > 101 Artificial Tears 0 drop 08/12/24 15:04 08/13/24 09:43 Artificial Tears 225 Drop/15 Ml Btl BOTH EYES 09/11/24 15:03 2 drops PRN PRN Administration TO KEEP EYES MOIST Artificial Tears 0 drop 08/12/24 22:00 08/20/24 05:05 Artificial Tears 225 Drop/15 Ml Btl BOTH EYES 09/11/24 21:59 2 drop TID LAKESHA Administration Sunitib Malate 25 Mg 0 ea 08/12/24 09:00 08/20/24 10:29 Capsules PO 09/11/24 08:59 1 capsule DAILY LAKESHA Administration Mirtazapine 7.5 mg 08/12/24 21:00 08/19/24 20:33 Mirtazapine 15 Mg Tablet PO 09/11/24 20:59 7.5 mg HS LAKESHA Administration Multivitamins 1 tab 08/18/24 15:30 08/20/24 10:29 Multivitamins Tablet PO 09/17/24 15:29 1 tab QDAY LAKESHA Administration Ondansetron HCl 4 mg 08/11/24 02:10 Ondansetron Inj 2 Mg/Ml Inj 2 Ml IV 09/10/24 02:09 Q6H PRN NAUSEA OR VOMITING Protocol Pantoprazole Sodium 40 mg 08/11/24 09:00 08/20/24 10:29 Pantoprazole Inj 40 Mg Vial IVP 09/10/24 08:59 40 mg Q12HR LAKESHA Administration Thiamine HCl 100 mg 08/18/24 15:30 08/20/24 10:29 Thiamine 100 Mg Tablet PO 09/17/24 15:29 100 mg QDAY LAKESHA Administration Plan Ms. Harris is a Tagalog-speaking 88-year-old female with a past medical history of gastric cancer status post partial gastrectomy and currently on sunitinib malate chemotherapy (previously on nilotinib) who presents to the ED for bright red blood per rectum for 2 days with generalized weakness and decreased appetite. #Symptomatic anemia. #Pancytopenia. #GI bleed. -WBC 3.5, Hgb 8.1, HCT 24.8, platelet 68. -Presents with 1 episode of bright red blood in stool setting of chronic anemia and generalized weakness. -Initial hemoglobin 10.5. FOBT positive. -EGD did not show any source of bleeding. Only showed esophagitis in the lower third of the esophagus -Colonoscopy-limited to mid transverse colon, findings include hemorrhoids found in the perianal exam and mild diverticulosis in sigmoid colon no evidence of diverticular bleeding Plan: ? GI consulted, appreciate recommendations. -Per GI Dr. Ledesma's recommendation -Start make feeding and advance diet as tolerated -Outpatient air contrast barium enema when patient is more stable -Dysphagia 2 diet orders in as tolerated -Refeeding via PEG tube started -Feeding instructions per dietitian recommendations: vital 1.2 at 20 ml/hr via PEG tube by pump- will consider increasing after 8 hours ? Dietitian recommendations: Thiamine, multivitamins ordered ? Monitor daily labs for potassium, phosphorus, magnesium ? Pantoprazole 40 mg IV twice daily. #Cachexia. #PEG tube placed 08/17/2024 -BMI 17.1, total protein 4.8, albumin 1.8 Plan: -PEG tube feeding began -08/18/24 -Feeding instructions via tube - vital 1.2 at 45 ml/hr via PEG tube ?Ensure with every meal. -Consult dietitian. -Resumed home mirtazapine 7.5mg. #Hypokalemia- resolved -AM labs showed potassium 3.6 - will continue to monitor #Elevated troponins- resolved. #NSTEMI type II, demand ischemia. Initial troponin 0.046 -> 0.049, likely due to chronic anemia. #Atrial fibrillation, new onset. No history of atrial fibrillation, [id number] 3. Will defer anticoagulation given GI bleed. #History of gastric cancer. #Leukopenia. #Thrombocytopenia. Per son, patient currently takes sunitinib malate and previously on nilotinib (Tasigna). -Resume home meds Disposition: telemetry- waiting for colonoscopy Diet: CLD. Lines: peripheral and PEG tube DVT prophylaxis: SCDs. GI prophylaxis: pantoprazole 40 mg IV BID. CODE STATUS: full code. Assessment and plan discussed with my attending physician Dr. Marquise Vu (PGY-1)- Internal medicine resident Attending Provider Attestation/Addendum Patient was seen and examined. She is sleeping. Her daughter is at bedside. Her daughter said that she ate fairly well this morning. She has no abdominal pain or nausea or vomiting. She is on tube feeding as well. She is at goal rate. The patient lives in [place]. She was seen at [facility] for her gastric cancer. Patient is currently not in distress. Discussed with housestaff.
[2024-08-20] MEDS: MIRTAZAPINE 15 MG TABLET 7.5 MG PO (20:32)
[2024-08-21] VITALS: BP 120/78; PULSE 103; RESP 19; TEMP 36.7; O2SAT 93
[2024-08-21 04:00] VITALS: BP 101/66; PULSE 100; RESP 16; TEMP 37; O2SAT 92
[2024-08-21] MEDS: Artificial Tears 225 DROP/15 ML BTL BOTH EYES ×3 (05:28→21:16)
[2024-08-21 05:57] LABS: Basophils % (Auto) 0 % (0-2.5); Eosinophils % (Auto) 1 % (0-10); Hematocrit 23.9 % (36.0-46.0); Immature Granulocytes % (Auto) 1 % (0-0); Immature Granulocytes Auto 0.01 Thou/mm3 (0.00-0.00); Lymphocytes # (Auto) 0.9 Thou/mm3 (1.0-4.8); Lymphocytes % (Auto) 43 % (10-50); Mean Corpuscular HGB Conc 32.6 g/dl (31.0-37.0); Mean Corpuscular Hemoglobin 34.1 pg (25.0-35.0); Mean Corpuscular Volume 104 fL (80-100); Monocytes # (Auto) 0.1 Thou/mm3 (0.0-0.8); Monocytes % (Auto) 7 % (0-12); Neutrophils % (Auto) 48 % (37-80); Nucleated Red Blood Cell # 0.26 Thou/mm3 (0.00-0.00); Nucleated Red Blood Cell % 13 /100 WBC (0); RDW Standard Deviation 97.3 fL (36.4-46.3); Red Blood Count 2.29 Miln/mm3 (4.00-5.20)
[2024-08-21 06:00] VITALS: BMI 17.4
[2024-08-21 06:01] LABS: Hemoglobin 7.8 g/dL (12.0-16.0); Platelet Count 68 Thou/mm3 (140-440); White Blood Count 2.1 Thou/mm3 (3.6-11.0)
[2024-08-21 06:39] LABS: Alanine Aminotransferase 9 U/L (10-49); Albumin, Serum 1.5 gm/dL (3.4-4.8); Albumin/Globulin Ratio 0.6 (1.2-2.2); Alkaline Phosphatase 60 U/L (46-116); Anion Gap 2 (7-16); Aspartate Amino Transferase 33 U/L (0-34); BUN/Creatinine Ratio 24 Ratio (12-20); Bilirubin,Total 0.5 mg/dL (0.3-1.2); Blood Urea Nitrogen 19 mg/dL (9-23); Calcium (Corrected) 8.8 mg/dL (8.5-10.1); Carbon Dioxide 28.1 mMol/L (20.0-31.0); Chloride 105 mMol/L (98-107); Creatinine (Component) 0.8 mg/dL (0.6-1.3); Estimated Creatinine Clearance 31.6 mL/min (>60); Globulin 2.7 gm/dL (2.3-3.5); Glucose 117 mg/dL (74-106); Osmolality,Calculated 273 (275-295); Phosphorous 2.7 mg/dL (2.4-5.1); Potassium 4.1 mMol/L (3.4-5.1); Sodium 135 mMol/L (136-145); Total Protein 4.2 gm/dL (5.7-8.2); eGFR > 60 See Note
[2024-08-21 07:11] LABS: Calcium 6.8 mg/dL (8.3-10.6)
--- NOTE | 2024-08-21 07:24 | PC.NURSE ---
pt calcium 6.8 and corrected calcium 8.8. Tried contacting Doctor Lockett through number provided. Was informed the phones have not been forwarded yet. Unable to reach Dr. Lockett at this time. Continuing to locate the correct number to report values to Doctor.
--- NOTE | 2024-08-21 07:28 | PC.NURSE ---
Notified Dr. Ma of pt Critical calcium level. said he will talk with the team. No new orders at this time.
--- NOTE | 2024-08-21 07:37 | ESPR_ITS ---
Documentation for date of: 08/21/24 Subjective Subjective Interval history: 08/21: Patient's vitals, labs, imaging and chart reviewed. Patient interviewed and examined at bedside accompanied by her daughter this AM. No acute overnight events reported. On review of labs, her Hgb/HCT was notable for a slight decrease. Will continue to monitor and trend with AM CBC. Patient also has notable leukopenia most likely secondary to chemotheraputic treatments she is undergoing for gastric cancer. Patient has no acute complaints at this time. Patient at goal feed rate of 45 cc/ hr with 25cc/hr FWF. Exam Vital Signs Temp Pulse Resp BP Pulse Ox O2 Del Method O2 Flow Rate 98.6 F 100 16 101/66 92 L Nasal Cannula 3 08/21/24 04:00 08/21/24 04:00 08/21/24 04:00 08/21/24 04:00 08/21/24 04:00 08/21/24 04:00 08/20/24 16:00 Narrative Exam General: Not in any visible or apparent acute distress, sick and frail and cachectic appearing, alert, minimally interactive HEENT: NC/AT, EOMI, moist mucous membranes CVS: S1S2 Regular rate and rhythm, No murmurs, rubs or gallops Lungs: Normal respiratory effort, no wheezing rhonchi or rales, CTAB Abd: Soft, non-distended, presence of PEG tube noted Ext: No edema, warm well perfused, decreased muscle tone in all extremities noted Skin: Intact, no rashes, no lesions, no erythema Neuro: no gross focal neurological deficits noted. Objective Labs 08/21/24 05:10 08/21/24 05:10 Labs: Laboratory Results - last 24 hr 08/20/24 08/21/24 07:42 05:10 WBC 2.4 L 2.1 L RBC 2.44 L 2.29 L Hgb 8.1 L 7.8 L Hct 25.1 L 23.9 L MCV 103 H 104 H MCH 33.2 34.1 MCHC 32.3 32.6 RDW Std Deviation 95.4 H 97.3 H Plt Count 66 L 68 L Neut % (Auto) 58 48 Lymph % (Auto) 34 43 [place] % (Auto) 6 7 Eos % (Auto) 1 1 Baso % (Auto) 0 0 Neut # (Auto) 1.4 L 1.0 L Lymph # (Auto) 0.8 L 0.9 L [place] # (Auto) 0.1 0.1 Eos # (Auto) 0.0 0.0 Baso # (Auto) 0.0 0.0 Immature Gran # (Auto) 0.02 H 0.01 H Absolute Nucleated RBC 0.38 H 0.26 H Immature Gran % 1 H 1 H Neutrophils % (Manual) 86 H Nucleated RBC % 16 H 13 H Band Neutrophils 6 Lymphocytes (Manual) 8 L Smear Path Review Sent to Pathologist Sodium 136 135 L Potassium 3.9 4.1 Chloride 106 105 Carbon Dioxide 27.3 28.1 Anion Gap 3 L 2 L BUN 14 19 Creatinine 0.8 0.8 Estim Creat Clear Calc 31.6 L 31.6 L eGFR > 60 > 60 BUN/Creatinine Ratio 18 24 H Glucose 115 H 117 H Calculated Osmolality 273 L 273 L Calcium 7.0 L 6.8 L* Corrected Calcium 9.0 8.8 Phosphorus 2.4 2.7 Magnesium 2.0 2.0 Total Bilirubin 0.5 0.5 AST 41 H 33 ALT 8 L 9 L Alkaline Phosphatase 62 60 Total Protein 4.4 L 4.2 L Albumin 1.5 L 1.5 L Globulin 2.9 2.7 Albumin/Globulin Ratio 0.5 L 0.6 L Misc Test Result Platelets confirmed Quality Measures Quality Measures VTE prophylaxis Advance care planning discussed with:: patient and child Assessment & Plan Assessment Current Active Medications: Generic Name Dose Route Start Last Admin Trade Name Freq PRN Reason Stop Dose Admin Acetaminophen 650 mg 08/11/24 02:10 08/19/24 06:26 Acetaminophen 325 Mg Tablet PO 09/10/24 02:09 650 mg Q6H PRN Administration PAIN OR FEVER > 101 Artificial Tears 0 drop 08/12/24 15:04 08/13/24 09:43 Artificial Tears 225 Drop/15 Ml Btl BOTH EYES 09/11/24 15:03 2 drops PRN PRN Administration TO KEEP EYES MOIST Artificial Tears 0 drop 08/12/24 22:00 08/21/24 05:28 Artificial Tears 225 Drop/15 Ml Btl BOTH EYES 09/11/24 21:59 2 drops TID LAKESHA Administration Sunitib Malate 25 Mg 0 ea 08/12/24 09:00 08/20/24 10:29 Capsules PO 09/11/24 08:59 1 capsule DAILY LAKESHA Administration Mirtazapine 7.5 mg 08/12/24 21:00 08/20/24 20:32 Mirtazapine 15 Mg Tablet PO 09/11/24 20:59 7.5 mg HS LAKESHA Administration Multivitamins 1 tab 08/18/24 15:30 08/20/24 10:29 Multivitamins Tablet PO 09/17/24 15:29 1 tab QDAY LAKESHA Administration Ondansetron HCl 4 mg 08/11/24 02:10 Ondansetron Inj 2 Mg/Ml Inj 2 Ml IV 09/10/24 02:09 Q6H PRN NAUSEA OR VOMITING Protocol Pantoprazole Sodium 40 mg 08/11/24 09:00 08/20/24 20:32 Pantoprazole Inj 40 Mg Vial IVP 09/10/24 08:59 40 mg Q12HR LAKESHA Administration Thiamine HCl 100 mg 08/18/24 15:30 08/20/24 10:29 Thiamine 100 Mg Tablet PO 09/17/24 15:29 100 mg QDAY LAKESHA Administration Plan Assessment & Plan: Ms. Harris is a Tagalog-speaking 88-year-old female with a past medical history of gastric cancer status post partial gastrectomy and currently on sunitinib malate chemotherapy (previously on nilotinib) who presents to the ED for bright red blood per rectum for 2 days with generalized weakness and decreased appetite. #Symptomatic anemia #Pancytopenia. #GI bleed Patient initially presented with 1 episode of bright red blood in stool. Initial hemoglobin 10.5. FOBT positive. GI services were consulted who performed an EGD which did not show any source of bleeding but did reveal esophagitis in the lower third of the esophagus. A subsequent colonoscopy was performed, however the study was limited to the mid transverse colon with findings of hemorrhoids found in the perianal exam and mild diverticulosis in sigmoid colon no evidence of diverticular bleeding. Patient to followup as Outpatient to undergo air contrast barium enema when patient is more stable Plan: - 08/21 WBC 2.1, Hgb 7.8, HCT 23.8%, platelet 68. Will continue to trend and monitor H/H. Transfuse if Hgb < 7.0. - GI consulted, appreciate recommendations. - Outpatient air contrast barium enema when patient is more stable - Dysphagia 2 diet - Refeeding via PEG tube started, currently at goal of 45cc/hr and 25 cc FWF. - Feeding instructions per dietitian recommendations: vital 1.2 at 20 ml/hr via PEG tube by pump- will consider increasing after 8 hours - Dietitian recommendations: Thiamine, multivitamins - Monitor daily labs for potassium, phosphorus, magnesium ? Pantoprazole 40 mg IV twice daily. #Failure to thrive #Cachexia #PEG tube placement 08/17/2024 -BMI 17.1, total protein 4.8, albumin 1.8 Plan: -PEG tube feeding began -08/18/24 -Feeding instructions via tube - vital 1.2 at 45 ml/hr via PEG tube ?Ensure with every meal. -Consult dietitian. -Resumed home mirtazapine 7.5mg. #Hypokalemia- resolved - will continue to monitor #Elevated troponins- resolved. #NSTEMI type II, demand ischemia. Initial troponin 0.046 -> 0.049, likely due to chronic anemia. #Atrial fibrillation, new onset - resolved No history of atrial fibrillation, [id number] 3. Will defer anticoagulation given GI bleed. #History of gastric cancer. #Leukopenia. #Thrombocytopenia. Per son, patient currently takes sunitinib malate and previously on nilotinib (Tasigna). -Resume home meds -F/U with oncologist within 1-2 weeks from discharge Disposition: Patient admitted for workup of acute GI bleed. Patient Hgb downtrending. Will monitor and trend. Diet: CLD Lines: peripheral and PEG tube DVT prophylaxis: SCDs GI prophylaxis: pantoprazole 40 mg IV BID. CODE STATUS: full code LPatient's case was discussed with supervising attending physician Dr. Jerry Ma M.D. Internal Medicine PGY-3 Attending Provider Attestation/Addendum I have examined the patient, reviewed labs and imaging findings, discussed the case with the resident(s), and reviewed entered orders. I agree with the plan of care as outlined in this note, with these additional summaries/recommendations: Patient seen at bedside. No acute overnight events. History obtained from daughter at bedside. Patient is status post colonoscopy & colonoscopy for GI bleed. Continue pantoprazole 40 mg twice daily. Patient was found to have failure to thrive, severe malnutrition and hypoalbuminemia. Family elected for PEG tube and status post PEG tube on 08/15/2024. At goal rate of tube feeds and free water flushes. Slight decrease in hemoglobin to 7.8 from 8.1 today. Repeat hematology panel in AM. Case management working on arranging home health for tube feed management. Hospital course complicated by new onset atrial fibrillation with RVR which has now resolved. Not a candidate for anticoagulation given GI bleeding and fall risk. Patient may follow-up outpatient for history of gastric cancer. Repeat chemistry and hematology panel in AM. Pending home health. Dr. Lockett
[2024-08-21 08:00] VITALS: BP 111/68; PULSE 91; PULSE 94; RESP 18; TEMP 36.7; O2SAT 96
[2024-08-21] MEDS: SUNITINIB PO (09:06)
[2024-08-21] MEDS: MULTIVITAMINS TABLET 1 TAB PO (09:06)
[2024-08-21] MEDS: PANTOPRAZOLE INJ 40 MG VIAL IVP ×2 (09:06→20:58)
[2024-08-21] MEDS: THIAMINE 100 MG TABLET PO (09:07)
[2024-08-21 09:57] LABS: Slide Review Platelets confirmed
--- NOTE | 2024-08-21 10:23 | PC.CM ---
[facility] states they will not be able to work on TAR until Saturday. I set Moody know that nothing is going to happen until after Saturday. I also called and spoke to Josie with SS and gave her the information so she could let the doctor know we are pending insurance authorization.
--- NOTE | 2024-08-21 10:28 | PC.SS ---
SS was contacted by Transfer nurseDede informing SS that patient might have to discharge until possibly Saturday. SS informed Dr. Barrientos.
[2024-08-21 12:00] VITALS: BP 115/73; PULSE 94; PULSE 96; RESP 20; TEMP 36.7; O2SAT 90
--- NOTE | 2024-08-21 14:38 | PC.SS ---
Rounding note: Pending HH to follow patient for Peg tube, Needs auth.
[2024-08-21 16:00] VITALS: BP 139/75; PULSE 103; PULSE 96; RESP 16; TEMP 36.2; O2SAT 90
--- NOTE | 2024-08-21 19:30 | PD.IMPROG ---
Documentation for date of: 08/21/24 Subjective Subjective Interval history: Patient evaluated Exam Vital Signs Temp Pulse Resp BP Pulse Ox O2 Del Method O2 Flow Rate 97.1 F 96 16 139/75 H 90 L Room Air 3 08/21/24 16:00 08/21/24 16:00 08/21/24 16:00 08/21/24 16:00 08/21/24 16:00 08/21/24 16:00 08/20/24 16:00 Objective Labs 08/21/24 05:10 08/21/24 05:10 Labs: Laboratory Results - last 24 hr 08/21/24 05:10 WBC 2.1 L RBC 2.29 L Hgb 7.8 L Hct 23.9 L MCV 104 H MCH 34.1 MCHC 32.6 RDW Std Deviation 97.3 H Plt Count 68 L Neut % (Auto) 48 Lymph % (Auto) 43 [place] % (Auto) 7 Eos % (Auto) 1 Baso % (Auto) 0 Neut # (Auto) 1.0 L Lymph # (Auto) 0.9 L [place] # (Auto) 0.1 Eos # (Auto) 0.0 Baso # (Auto) 0.0 Immature Gran # (Auto) 0.01 H Absolute Nucleated RBC 0.26 H Immature Gran % 1 H Nucleated RBC % 13 H Sodium 135 L Potassium 4.1 Chloride 105 Carbon Dioxide 28.1 Anion Gap 2 L BUN 19 Creatinine 0.8 Estim Creat Clear Calc 31.6 L eGFR > 60 BUN/Creatinine Ratio 24 H Glucose 117 H Calculated Osmolality 273 L Calcium 6.8 L* Corrected Calcium 8.8 Phosphorus 2.7 Magnesium 2.0 Total Bilirubin 0.5 AST 33 ALT 9 L Alkaline Phosphatase 60 Total Protein 4.2 L Albumin 1.5 L Globulin 2.7 Albumin/Globulin Ratio 0.6 L Misc Test Result Platelets confirmed Impressions Impression: # Failure to thrive requiring PEG placement # No leakage at the PEG site Continue current management Assessment & Plan A&P Narrative # 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 and episode of hematochezia Obvious cause of bleeding is gastric carcinoma however there could be additional source of bleeding from the lower GI tract Initial plan of care is to do an upper endoscopy to see if there is an active bleeding going on and if that is negative we will consider doing a fibrotic colonoscopy examination Informed consent obtained from the family and we will proceed with the procedure Other medical problems include the following # A-fib with RVR rate controlled # Elevated troponin # come back to normal # Cachexia with hypoproteinemia and hypoalbuminemia Will follow the patient Thank you very much for the opportunity to participate in the care of this patient Time Spent With Patient Time: Total time spent is greater than 50% in coordination of care (as documented) at patient's floor/unit and/or counseling patient:
[2024-08-21 20:00] VITALS: BP 123/71; PULSE 102; PULSE 107; RESP 19; TEMP 37; O2SAT 91
[2024-08-21] MEDS: MIRTAZAPINE 15 MG TABLET 7.5 MG PO (20:58)
[2024-08-22] VITALS (8 sets, daily range): BP systolic 96–128; BP diastolic 60–83; PULSE 86–106; RESP 13–20; TEMP 36.1–37.2; O2SAT 90–97
[2024-08-22] MEDS: Artificial Tears 225 DROP/15 ML BTL BOTH EYES ×3 (05:25→21:06)
[2024-08-22 06:28] LABS: Basophils % (Auto) 0 % (0-2.5); Eosinophils % (Auto) 1 % (0-10); Hematocrit 24.3 % (36.0-46.0); Immature Granulocytes % (Auto) 0 % (0-0); Immature Granulocytes Auto 0.01 Thou/mm3 (0.00-0.00); Lymphocytes # (Auto) 1.1 Thou/mm3 (1.0-4.8); Lymphocytes % (Auto) 41 % (10-50); Mean Corpuscular HGB Conc 32.9 g/dl (31.0-37.0); Mean Corpuscular Hemoglobin 33.8 pg (25.0-35.0); Mean Corpuscular Volume 103 fL (80-100); Monocytes # (Auto) 0.2 Thou/mm3 (0.0-0.8); Monocytes % (Auto) 9 % (0-12); Neutrophils # (Auto) 1.3 Thou/mm3 (1.8-7.7); Neutrophils % (Auto) 49 % (37-80); Nucleated Red Blood Cell # 0.28 Thou/mm3 (0.00-0.00); Nucleated Red Blood Cell % 11 /100 WBC (0); RDW Standard Deviation 96.1 fL (36.4-46.3); Red Blood Count 2.37 Miln/mm3 (4.00-5.20)
[2024-08-22 06:36] LABS: White Blood Count 2.6 Thou/mm3 (3.6-11.0)
--- NOTE | 2024-08-22 07:15 | PD.RESPRO ---
Documentation for date of: 08/22/24 Subjective Subjective Interval history: Patient's vitals, labs, imaging and chart reviewed. Patient interviewed and examined at bedside this AM. No acute overnight events. Patient pending Home health so as to be able to continue PEG tube feeding at home. Per case management, anticipate obtaining home health Saturday08/24/24. Anticipate DC that same day. Patient has no acute complaints at this time. Will continue tube feeds at 45cc/hr and FWF at 25 cc/ hr. Exam Vital Signs Temp Pulse Resp BP Pulse Ox O2 Del Method O2 Flow Rate 98.0 F 105 H 18 119/78 90 L Room Air 3 08/22/24 04:00 08/22/24 04:00 08/22/24 04:00 08/22/24 04:00 08/22/24 04:00 08/22/24 04:00 08/20/24 16:00 Narrative Exam General: Not in any visible or apparent acute distress, sick and frail and cachectic appearing, alert, minimally interactive HEENT: NC/AT, EOMI, moist mucous membranes CVS: S1S2 Regular rate and rhythm, No murmurs, rubs or gallops Lungs: Normal respiratory effort, no wheezing rhonchi or rales, CTAB Abd: Soft, non-distended, presence of PEG tube noted Ext: No edema, warm well perfused, decreased muscle tone in all extremities noted Skin: Intact, no rashes, no lesions, no erythema Neuro: no gross focal neurological deficits noted. Objective Labs 08/22/24 04:42 08/22/24 04:42 Labs: Laboratory Results - last 24 hr 08/21/24 08/22/24 05:10 04:42 WBC 2.6 L RBC 2.37 L Hgb 8.0 L Hct 24.3 L MCV 103 H MCH 33.8 MCHC 32.9 RDW Std Deviation 96.1 H Neut % (Auto) 49 Lymph % (Auto) 41 [place] % (Auto) 9 Eos % (Auto) 1 Baso % (Auto) 0 Neut # (Auto) 1.3 L Lymph # (Auto) 1.1 [place] # (Auto) 0.2 Eos # (Auto) 0.0 Baso # (Auto) 0.0 Immature Gran # (Auto) 0.01 H Absolute Nucleated RBC 0.28 H Immature Gran % 0 Nucleated RBC % 11 H Misc Test Result Platelets confirmed Quality Measures Quality Measures VTE prophylaxis Advance care planning discussed with:: patient Assessment & Plan Assessment Current Active Medications: Generic Name Dose Route Start Last Admin Trade Name Priyanka PRN Reason Stop Dose Admin Acetaminophen 650 mg 08/11/24 02:10 08/19/24 06:26 Acetaminophen 325 Mg Tablet PO 09/10/24 02:09 650 mg Q6H PRN Administration PAIN OR FEVER > 101 Artificial Tears 0 drop 08/12/24 15:04 08/13/24 09:43 Artificial Tears 225 Drop/15 Ml Btl BOTH EYES 09/11/24 15:03 2 drops PRN PRN Administration TO KEEP EYES MOIST Artificial Tears 0 drop 08/12/24 22:00 08/22/24 05:25 Artificial Tears 225 Drop/15 Ml Btl BOTH EYES 09/11/24 21:59 2 drops TID LAKESHA Administration Sunitib Malate 25 Mg 0 ea 08/12/24 09:00 08/21/24 09:06 Capsules PO 09/11/24 08:59 1 capsule DAILY LAKESHA Administration Mirtazapine 7.5 mg 08/12/24 21:00 08/21/24 20:58 Mirtazapine 15 Mg Tablet PO 09/11/24 20:59 7.5 mg HS LAKESHA Administration Multivitamins 1 tab 08/18/24 15:30 08/21/24 09:06 Multivitamins Tablet PO 09/17/24 15:29 1 tab QDAY LAKESHA Administration Ondansetron HCl 4 mg 08/11/24 02:10 Ondansetron Inj 2 Mg/Ml Inj 2 Ml IV 09/10/24 02:09 Q6H PRN NAUSEA OR VOMITING Protocol Pantoprazole Sodium 40 mg 08/11/24 09:00 08/21/24 20:58 Pantoprazole Inj 40 Mg Vial IVP 09/10/24 08:59 40 mg Q12HR LAKESHA Administration Thiamine HCl 100 mg 08/18/24 15:30 08/21/24 09:07 Thiamine 100 Mg Tablet PO 09/17/24 15:29 100 mg QDAY LAKESHA Administration Plan Assessment & Plan: Ms. Harris is a Tagalog-speaking 88-year-old female with a past medical history of gastric cancer status post partial gastrectomy and currently on sunitinib malate chemotherapy (previously on nilotinib) who presents to the ED for bright red blood per rectum for 2 days with generalized weakness and decreased appetite. #Symptomatic anemia #Pancytopenia #GI bleed Patient initially presented with 1 episode of bright red blood in stool. Initial hemoglobin 10.5. FOBT positive. GI services were consulted who performed an EGD which did not show any source of bleeding but did reveal esophagitis in the lower third of the esophagus. A subsequent colonoscopy was performed, however the study was limited to the mid transverse colon with findings of hemorrhoids found in the perianal exam and mild diverticulosis in sigmoid colon no evidence of diverticular bleeding. Patient to followup as Outpatient to undergo air contrast barium enema when patient is more stable Plan: - 08/21 WBC 2.1, Hgb 7.8, HCT 23.8%, platelet 68. Will continue to trend and monitor H/H. Transfuse if Hgb < 7.0. - GI consulted, appreciate recommendations. - Outpatient air contrast barium enema when patient is more stable - Dysphagia 2 diet - Refeeding via PEG tube started, currently at goal of 45cc/hr and 25 cc FWF. - Feeding instructions per dietitian recommendations: vital 1.2 at 20 ml/hr via PEG tube by pump - Dietitian recommendations: Thiamine, multivitamins - Monitor daily labs for potassium, phosphorus, magnesium ? Pantoprazole 40 mg IV twice daily. #Failure to thrive #Cachexia #PEG tube placement 08/15/2024 -BMI 17.1, total protein 4.8, albumin 1.8 Plan: -Feeding instructions via tube - vital 1.2 at 45 ml/hr via PEG tube; FWF at 25 cc/hr -Continue home mirtazapine 7.5mg HS -Patient is medically stable for discharge at this time. However, pending Home health approval for PEG tube management at home. #Hypokalemia- resolved - will continue to monitor #Elevated troponins- resolved #NSTEMI type II, demand ischemia Initial troponin 0.046 -> 0.049, likely due to chronic anemia. #Atrial fibrillation, new onset - resolved No history of atrial fibrillation, [id number] 3. Will defer anticoagulation given GI bleed. #History of gastric cancer - s/p partial gastrectomy #Leukopenia #Thrombocytopenia. Per son, patient currently takes sunitinib malate and previously on nilotinib (Tasigna). -Resume home meds -F/U with oncologist within 1-2 weeks from discharge Disposition: Patient admitted for workup of acute GI bleed. Patient pending Home health for PEG tube management at home. Anticipate DC on 08/24/24. Diet: Dysphagia 2 mech altered. Lines: peripheral and PEG tube DVT prophylaxis: SCDs GI prophylaxis: pantoprazole 40 mg IV BID. CODE STATUS: full code Patient's case was discussed with supervising attending physician Dr. Jerry Ma M.D. Internal Medicine PGY-3 Attending Provider Attestation/Addendum I have examined the patient, reviewed labs and imaging findings, discussed the case with the resident(s), and reviewed entered orders. I agree with the plan of care as outlined in this note, with these additional summaries/recommendations: Patient seen at bedside. No acute overnight events. History obtained from daughter at bedside. Patient is status post colonoscopy & colonoscopy for GI bleed. Continue pantoprazole 40 mg twice daily. Patient was found to have failure to thrive, severe malnutrition and hypoalbuminemia. Family elected for PEG tube and status post PEG tube on 08/15/2024. At goal rate of tube feeds and free water flushes. Slight improvement in hemoglobin from 7.8 to 8.0 today. Repeat hematology panel in AM. Case management working on arranging home health for tube feed management. Hospital course complicated by new onset atrial fibrillation with RVR which has now resolved. Not a candidate for anticoagulation given GI bleeding and fall risk. Patient may follow-up outpatient for history of gastric cancer. Severe pancytopenia present likely 2/2 to poor oral intake and chemotherapy which patient can follow-up outpatient. Repeat chemistry and hematology panel in AM. Pending home health. Dr. Lockett
[2024-08-22 07:18] LABS: Alanine Aminotransferase 9 U/L (10-49); Albumin, Serum 1.6 gm/dL (3.4-4.8); Albumin/Globulin Ratio 0.6 (1.2-2.2); Alkaline Phosphatase 72 U/L (46-116); Anion Gap 5 (7-16); Aspartate Amino Transferase 47 U/L (0-34); BUN/Creatinine Ratio 28 Ratio (12-20); Bilirubin,Total 0.6 mg/dL (0.3-1.2); Blood Urea Nitrogen 22 mg/dL (9-23); Calcium 7.1 mg/dL (8.3-10.6); Carbon Dioxide 26.2 mMol/L (20.0-31.0); Chloride 104 mMol/L (98-107); Creatinine (Component) 0.8 mg/dL (0.6-1.3); Estimated Creatinine Clearance 31.6 mL/min (>60); Globulin 2.9 gm/dL (2.3-3.5); Glucose 113 mg/dL (74-106); Osmolality,Calculated 274 (275-295); Sodium 135 mMol/L (136-145); Total Protein 4.5 gm/dL (5.7-8.2); eGFR > 60 See Note
[2024-08-22 07:33] LABS: Platelet Count 71 Thou/mm3 (140-440)
[2024-08-22 07:34] LABS: Slide Review Platelets confirmed
[2024-08-22] MEDS: PANTOPRAZOLE INJ 40 MG VIAL IVP ×2 (09:51→21:06)
[2024-08-22] MEDS: SUNITINIB PO (09:52)
[2024-08-22] MEDS: THIAMINE 100 MG TABLET PO (09:52)
[2024-08-22] MEDS: MULTIVITAMINS TABLET 1 TAB PO (09:52)
--- NOTE | 2024-08-22 11:32 | PC.SS ---
Pending insurance auth for [facility] for HH: Peg Tube feedings, Per [place] KATIE Willams, not till 08/24
[2024-08-22] MEDS: ACETAMINOPHEN 325 MG TABLET 650 MG PO (12:36)
--- NOTE | 2024-08-22 17:39 | PD.IMPROG ---
Documentation for date of: 08/22/24 Subjective Subjective Interval history: Patient evaluated Enteral feeding at 45 cc an hour Exam Vital Signs Temp Pulse Resp BP Pulse Ox O2 Del Method O2 Flow Rate 97.0 F 87 13 96/60 96 Nasal Cannula 2 08/22/24 16:00 08/22/24 16:00 08/22/24 16:00 08/22/24 16:00 08/22/24 16:00 08/22/24 16:00 08/22/24 16:00 Objective Labs 08/22/24 04:42 08/22/24 04:42 Labs: Laboratory Results - last 24 hr 08/22/24 04:42 WBC 2.6 L RBC 2.37 L Hgb 8.0 L Hct 24.3 L MCV 103 H MCH 33.8 MCHC 32.9 RDW Std Deviation 96.1 H Plt Count 71 L Neut % (Auto) 49 Lymph % (Auto) 41 [place] % (Auto) 9 Eos % (Auto) 1 Baso % (Auto) 0 Neut # (Auto) 1.3 L Lymph # (Auto) 1.1 [place] # (Auto) 0.2 Eos # (Auto) 0.0 Baso # (Auto) 0.0 Immature Gran # (Auto) 0.01 H Absolute Nucleated RBC 0.28 H Immature Gran % 0 Nucleated RBC % 11 H Sodium 135 L Potassium 4.0 Chloride 104 Carbon Dioxide 26.2 Anion Gap 5 L BUN 22 Creatinine 0.8 Estim Creat Clear Calc 31.6 L eGFR > 60 BUN/Creatinine Ratio 28 H Glucose 113 H Calculated Osmolality 274 L Calcium 7.1 L Corrected Calcium 9.0 Total Bilirubin 0.6 AST 47 H ALT 9 L Alkaline Phosphatase 72 Total Protein 4.5 L Albumin 1.6 L Globulin 2.9 Albumin/Globulin Ratio 0.6 L Misc Test Result Platelets confirmed Impressions Impression: # Failure to thrive # PEG tube placement for enteral hyperalimentation Continue current management Assessment & Plan A&P Narrative # 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 and episode of hematochezia Obvious cause of bleeding is gastric carcinoma however there could be additional source of bleeding from the lower GI tract Initial plan of care is to do an upper endoscopy to see if there is an active bleeding going on and if that is negative we will consider doing a fibrotic colonoscopy examination Informed consent obtained from the family and we will proceed with the procedure Other medical problems include the following # A-fib with RVR rate controlled # Elevated troponin # come back to normal # Cachexia with hypoproteinemia and hypoalbuminemia Will follow the patient Thank you very much for the opportunity to participate in the care of this patient Time Spent With Patient Time: Total time spent is greater than 50% in coordination of care (as documented) at patient's floor/unit and/or counseling patient:
[2024-08-22] MEDS: MIRTAZAPINE 15 MG TABLET 7.5 MG PO (21:06)
[2024-08-23] VITALS: BP 114/74; PULSE 98; RESP 16; TEMP 36.4; O2SAT 95
[2024-08-23 04:00] VITALS: BP 101/79; PULSE 104; RESP 18; TEMP 36.3; O2SAT 94
[2024-08-23] MEDS: Artificial Tears 225 DROP/15 ML BTL BOTH EYES ×3 (05:16→21:02)
[2024-08-23 06:00] VITALS: BMI 17.4
[2024-08-23 06:58] LABS: Basophils % (Auto) 1 % (0-2.5); Eosinophils # (Auto) 0.1 Thou/mm3 (0.0-0.5); Eosinophils % (Auto) 3 % (0-10); Hematocrit 25.4 % (36.0-46.0); Immature Granulocytes % (Auto) 1 % (0-0); Immature Granulocytes Auto 0.01 Thou/mm3 (0.00-0.00); Lymphocytes # (Auto) 0.8 Thou/mm3 (1.0-4.8); Lymphocytes % (Auto) 39 % (10-50); Mean Corpuscular HGB Conc 33.1 g/dl (31.0-37.0); Mean Corpuscular Hemoglobin 34.7 pg (25.0-35.0); Mean Corpuscular Volume 105 fL (80-100); Monocytes # (Auto) 0.2 Thou/mm3 (0.0-0.8); Monocytes % (Auto) 9 % (0-12); Neutrophils % (Auto) 48 % (37-80); Nucleated Red Blood Cell # 0.17 Thou/mm3 (0.00-0.00); Nucleated Red Blood Cell % 8 /100 WBC (0); RDW Standard Deviation 100.7 fL (36.4-46.3); Red Blood Count 2.42 Miln/mm3 (4.00-5.20)
[2024-08-23 07:06] LABS: Hemoglobin 8.4 g/dL (12.0-16.0); Platelet Count 70 Thou/mm3 (140-440); White Blood Count 2.1 Thou/mm3 (3.6-11.0)
[2024-08-23 07:25] LABS: Alanine Aminotransferase 12 U/L (10-49); Albumin, Serum 1.7 gm/dL (3.4-4.8); Albumin/Globulin Ratio 0.6 (1.2-2.2); Alkaline Phosphatase 60 U/L (46-116); Anion Gap 7 (7-16); Aspartate Amino Transferase 52 U/L (0-34); BUN/Creatinine Ratio 33 Ratio (12-20); Bilirubin,Total 0.6 mg/dL (0.3-1.2); Blood Urea Nitrogen 23 mg/dL (9-23); Calcium 7.1 mg/dL (8.3-10.6); Calcium (Corrected) 8.9 mg/dL (8.5-10.1); Carbon Dioxide 24.8 mMol/L (20.0-31.0); Chloride 104 mMol/L (98-107); Creatinine (Component) 0.7 mg/dL (0.6-1.3); Estimated Creatinine Clearance 36.1 mL/min (>60); Globulin 2.9 gm/dL (2.3-3.5); Glucose 117 mg/dL (74-106); Osmolality,Calculated 276 (275-295); Potassium 4.2 mMol/L (3.4-5.1); Sodium 136 mMol/L (136-145); Total Protein 4.6 gm/dL (5.7-8.2); eGFR > 60 See Note
[2024-08-23 07:43] LABS: Slide Review Platelets confirmed
[2024-08-23 08:00] VITALS: BP 123/75; PULSE 101; PULSE 106; RESP 15; TEMP 36.8; O2SAT 93
[2024-08-23] MEDS: SUNITINIB PO (09:35)
[2024-08-23] MEDS: THIAMINE 100 MG TABLET PO (09:36)
[2024-08-23] MEDS: MULTIVITAMINS TABLET 1 TAB PO (09:36)
[2024-08-23] MEDS: PANTOPRAZOLE INJ 40 MG VIAL IVP ×2 (09:36→21:02)
[2024-08-23 09:59] LABS: Magnesium 1.8 mg/dL (1.6-2.6); Phosphorous 3.2 mg/dL (2.4-5.1)
[2024-08-23 12:00] VITALS: BP 124/71; PULSE 105; PULSE 109; RESP 22; TEMP 36.2; O2SAT 91
--- NOTE | 2024-08-23 14:33 | ESPR_ITS ---
<Statement entered by Marquez Day MD - 08/23/24 15:21> Patient was seen and examined at the bedside. Patient is tolerating tube feeds from the PEG tube well. Neutropenic precautions were added. Patient is currently pending for home health services. Managing electrolytes and replete as necessary. All labs and orders were reviewed. I saw and examined the patient, and I agree with current management stated by Dr Ford MD,PGY1. Plan of care was discussed with the attending physician and resident physician. Disclaimer: Despite multiple revisions, due to the dictation software being used, the document bellow may not be free of grammatical errors including phonetic/typographic errors. However, this does not deter from our commitment to providing health care in the patient's best interest in mind. Dr. Lindsay MD, PGY 2 Documentation for date of: 08/23/24 Subjective Subjective Interval history: Patient examined at bedside. No overnight events reported. Patient denied chest pain or shortness of breath. No pyrexia. No melena or hematochezia noted by nursing staff. Pending home health. Exam Vital Signs Temp Pulse Resp BP Pulse Ox O2 Del Method O2 Flow Rate 97.2 F 105 H 22 H 124/71 91 L Room Air 2 08/23/24 12:00 08/23/24 12:00 08/23/24 12:00 08/23/24 12:00 08/23/24 12:00 08/23/24 12:00 08/23/24 00:00 Narrative Exam General Appearance: Alert & Oriented X3, well-nourished female who is lying in bed in no acute distress HEENT: Skull symmetrical and atraumatic. Conjunctivae pin and moist. Pupils equal, round, reactive to light and accommodation (PERRL). External ear without lesion or discharge. Straight, nares patient, mucosa pink, no discharge. Cardio: Normal Rate and Rhythm with S1 and S2 heart sounds. No murmurs or extra heart sounds auscultated. No bruits on carotid auscultation. No peripheral edema or cyanosis. Lungs: Symmetric with good expansion. Chest and back non-tender. Breath sounds vesicular without crackles, wheezing or rhonchi Abdomen: Non-tender, Non-distended, Normal Reactive Bowel Sounds Neuro: Alert, cooperative, oriented to person, place, and time. Speech clear. CN grossly intact. Upper motor strength 5/5 and Lower motor strength 5/5. Sensation intact. Objective Labs 08/23/24 05:04 08/23/24 05:04 Labs: Laboratory Results - last 24 hr 08/23/24 05:04 WBC 2.1 L RBC 2.42 L Hgb 8.4 L Hct 25.4 L MCV 105 H MCH 34.7 MCHC 33.1 RDW Std Deviation 100.7 H Plt Count 70 L Neut % (Auto) 48 Lymph % (Auto) 39 [place] % (Auto) 9 Eos % (Auto) 3 Baso % (Auto) 1 Neut # (Auto) 1.0 L Lymph # (Auto) 0.8 L [place] # (Auto) 0.2 Eos # (Auto) 0.1 Baso # (Auto) 0.0 Immature Gran # (Auto) 0.01 H Absolute Nucleated RBC 0.17 H Immature Gran % 1 H Nucleated RBC % 8 H Sodium 136 Potassium 4.2 Chloride 104 Carbon Dioxide 24.8 Anion Gap 7 BUN 23 Creatinine 0.7 Estim Creat Clear Calc 36.1 L eGFR > 60 BUN/Creatinine Ratio 33 H Glucose 117 H Calculated Osmolality 276 Calcium 7.1 L Corrected Calcium 8.9 Phosphorus 3.2 Magnesium 1.8 Total Bilirubin 0.6 AST 52 H ALT 12 Alkaline Phosphatase 60 Total Protein 4.6 L Albumin 1.7 L Globulin 2.9 Albumin/Globulin Ratio 0.6 L Misc Test Result Platelets confirmed Quality Measures Quality Measures VTE prophylaxis Advance care planning discussed with:: patient and child Assessment & Plan Assessment Current Active Medications: Generic Name Dose Route Start Last Admin Trade Name Yemiq PRN Reason Stop Dose Admin Acetaminophen 650 mg 08/11/24 02:10 08/22/24 12:36 Acetaminophen 325 Mg Tablet PO 09/10/24 02:09 650 mg Q6H PRN Administration PAIN OR FEVER > 101 Artificial Tears 0 drop 08/12/24 15:04 08/13/24 09:43 Artificial Tears 225 Drop/15 Ml Btl BOTH EYES 09/11/24 15:03 2 drops PRN PRN Administration TO KEEP EYES MOIST Artificial Tears 0 drop 08/12/24 22:00 08/23/24 05:16 Artificial Tears 225 Drop/15 Ml Btl BOTH EYES 09/11/24 21:59 2 drops TID LAKESHA Administration Sunitib Malate 25 Mg 0 ea 08/12/24 09:00 08/23/24 09:35 Capsules PO 09/11/24 08:59 1 capsule DAILY LAKESHA Administration Mirtazapine 7.5 mg 08/12/24 21:00 08/22/24 21:06 Mirtazapine 15 Mg Tablet PO 09/11/24 20:59 7.5 mg HS LAKESHA Administration Multivitamins 1 tab 08/18/24 15:30 08/23/24 09:36 Multivitamins Tablet PO 09/17/24 15:29 1 tab QDAY LAKESHA Administration Ondansetron HCl 4 mg 08/11/24 02:10 Ondansetron Inj 2 Mg/Ml Inj 2 Ml IV 09/10/24 02:09 Q6H PRN NAUSEA OR VOMITING Protocol Pantoprazole Sodium 40 mg 08/11/24 09:00 08/23/24 09:36 Pantoprazole Inj 40 Mg Vial IVP 09/10/24 08:59 40 mg Q12HR LAKESHA Administration Thiamine HCl 100 mg 08/18/24 15:30 08/23/24 09:36 Thiamine 100 Mg Tablet PO 09/17/24 15:29 100 mg QDAY LAKESHA Administration Plan Patient is a Tagalog-speaking 88-year-old female with a past medical history of gastric cancer status post partial gastrectomy and currently on sunitinib malate chemotherapy (previously on nilotinib) who was admitted on 08/11/2024 who was admitted for lower GI bleed, s/p PEG tube, pending SNF. #Symptomatic anemia #GI bleed Etiology: Given colonoscopy findings on 08/17/2022 for hemorrhoids and diverticulosis with complicating history of gastric cancer, lower GI bleed cannot be ruled out. FOBT positive. Upper GI bleed less likely given negative EGD. Diagnostics: EGD (08/13/2024) esophagitis: Colonoscopy (08/16/2024): Hemorrhoids, diverticulosis, limited colonoscopy-stopped at the mid transverse colon as patient was not tolerating procedure with elevated heart rate. Diagnostics: WBC (08/23/2024): 2.1, Hgb 8.4, hct 25.4, MCV 105 Plan: -Transfuse if Hgb < 7.0. - Dysphagia 2 diet - Refeeding via PEG tube started, currently at goal of 45cc/hr and 25 cc FWF. - Feeding instructions per dietitian recommendations: vital 1.2 at 20 ml/hr via PEG tube by pump- will consider increasing after 8 hours - Dietitian recommendations: Thiamine, multivitamins - Monitor daily labs for potassium, phosphorus, magnesium ? Pantoprazole 40 mg IV twice daily. - GI consulted, Dr. Ledesma, appreciate recommendations. - Outpatient air contrast barium enema when patient is more stable -Pending home health. #Failure to thrive #Cachexia Given past medical history of gastric cancer status post gastric ectomy, likely failure to thrive secondary to cancer and chemo medication. Patient is now status post PEG tube placement 08/15/2024. Diagnostics: -Total protein (08/23/2024): Total Protein 4.6 and Albumin 1.7 -BMI 17.1, total protein 4.8, albumin 1.8 Plan: -PEG tube feeding began -08/18/24 -Feeding instructions via tube - vital 1.2 at 45 ml/hr via PEG tube ?Ensure with every meal. -Consult dietitian. -Resumed home mirtazapine 7.5mg. #History of gastric cancer. #Pancytopenia. #Leukopenia. #Thrombocytopenia. Per son, patient currently takes sunitinib malate and previously on nilotinib (Tasigna). -Resume home meds -F/U with oncologist within 1-2 weeks from discharge -Neutropenic Precautions #Hypokalemia- resolved - will continue to monitor #Atrial fibrillation, new onset - resolved No history of atrial fibrillation, [id number] 3. Will defer anticoagulation given GI bleed. #Elevated troponins- resolved. #NSTEMI type II, demand ischemia. Initial troponin 0.046 -> 0.049, likely due to chronic anemia. Health Maintenance: Disp: Pt is currently admitted to floors for further management of GI bleeding, awaiting home health FEN: Dysphagia 2 Mechanical Altered DVT: compression device Code: Full Code - The patient's plan was discussed with attending Dr. Lockett and Dr. Day, senior resident. Kathy Youngblood MD PGY1 Internal Medicine Attending Provider Attestation/Addendum I have examined the patient, reviewed labs and imaging findings, discussed the case with the resident(s), and reviewed entered orders. I agree with the plan of care as outlined in this note, with these additional summaries/recommendations: Patient seen at bedside. No acute overnight events. Patient is status post colonoscopy & colonoscopy for GI bleed. Continue pantoprazole 40 mg twice daily. Patient was found to have failure to thrive, severe malnutrition and hypoalbuminemia. Family elected for PEG tube and status post PEG tube on 08/15/2024. At goal rate of tube feeds and free water flushes. Case management working on arranging home health for tube feed management. Hospital course complicated by new onset atrial fibrillation with RVR which has now resolved. Not a candidate for anticoagulation given GI bleeding and fall risk. Patient may follow-up outpatient for history of gastric cancer. Severe pancytopenia present likely 2/2 to poor oral intake and chemotherapy which patient can follow-up outpatient. Repeat chemistry and hematology panel in AM. Pending home health. Dr. Lockett
[2024-08-23 16:00] VITALS: BP 119/73; PULSE 109; PULSE 114; RESP 19; TEMP 36.7; O2SAT 91
[2024-08-23 20:00] VITALS: BP 114/84; PULSE 109; RESP 13; TEMP 36.9; O2SAT 90
[2024-08-23] MEDS: MIRTAZAPINE 15 MG TABLET 7.5 MG PO (21:02)
--- NOTE | 2024-08-23 22:22 | PD.IMPROG ---
Documentation for date of: 08/23/24 Subjective Subjective Interval history: PEG tube site evaluated No drainage Exam Vital Signs Temp Pulse Resp BP Pulse Ox O2 Del Method O2 Flow Rate 98.4 F 109 H 13 114/84 90 L Room Air 2 08/23/24 20:00 08/23/24 20:00 08/23/24 20:00 08/23/24 20:00 08/23/24 20:00 08/23/24 20:00 08/23/24 00:00 Objective Labs 08/23/24 05:04 08/23/24 05:04 Labs: Laboratory Results - last 24 hr 08/23/24 05:04 WBC 2.1 L RBC 2.42 L Hgb 8.4 L Hct 25.4 L MCV 105 H MCH 34.7 MCHC 33.1 RDW Std Deviation 100.7 H Plt Count 70 L Neut % (Auto) 48 Lymph % (Auto) 39 [place] % (Auto) 9 Eos % (Auto) 3 Baso % (Auto) 1 Neut # (Auto) 1.0 L Lymph # (Auto) 0.8 L [place] # (Auto) 0.2 Eos # (Auto) 0.1 Baso # (Auto) 0.0 Immature Gran # (Auto) 0.01 H Absolute Nucleated RBC 0.17 H Immature Gran % 1 H Nucleated RBC % 8 H Sodium 136 Potassium 4.2 Chloride 104 Carbon Dioxide 24.8 Anion Gap 7 BUN 23 Creatinine 0.7 Estim Creat Clear Calc 36.1 L eGFR > 60 BUN/Creatinine Ratio 33 H Glucose 117 H Calculated Osmolality 276 Calcium 7.1 L Corrected Calcium 8.9 Phosphorus 3.2 Magnesium 1.8 Total Bilirubin 0.6 AST 52 H ALT 12 Alkaline Phosphatase 60 Total Protein 4.6 L Albumin 1.7 L Globulin 2.9 Albumin/Globulin Ratio 0.6 L Misc Test Result Platelets confirmed Impressions Impression: # Failure to thrive # Placement of a PEG tube for enteral hyperalimentation Continue current management Assessment & Plan A&P Narrative # 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 and episode of hematochezia Obvious cause of bleeding is gastric carcinoma however there could be additional source of bleeding from the lower GI tract Initial plan of care is to do an upper endoscopy to see if there is an active bleeding going on and if that is negative we will consider doing a fibrotic colonoscopy examination Informed consent obtained from the family and we will proceed with the procedure Other medical problems include the following # A-fib with RVR rate controlled # Elevated troponin # come back to normal # Cachexia with hypoproteinemia and hypoalbuminemia Will follow the patient Thank you very much for the opportunity to participate in the care of this patient Time Spent With Patient Time: Total time spent is greater than 50% in coordination of care (as documented) at patient's floor/unit and/or counseling patient:
[2024-08-24] VITALS (10 sets, daily range): BP systolic 106–173; BP diastolic 63–96; PULSE 92–120; RESP 14–24; TEMP 26.4–37.4; O2SAT 90–99; BMI 19.9
[2024-08-24] MEDS: ACETAMINOPHEN 325 MG TABLET 650 MG PO (01:41)
[2024-08-24] MEDS: Artificial Tears 225 DROP/15 ML BTL BOTH EYES ×3 (05:15→21:59)
[2024-08-24 06:15] LABS: Basophils % (Auto) 0 % (0-2.5); Eosinophils # (Auto) 0.1 Thou/mm3 (0.0-0.5); Eosinophils % (Auto) 2 % (0-10); Immature Granulocytes % (Auto) 0 % (0-0); Immature Granulocytes Auto 0.01 Thou/mm3 (0.00-0.00); Lymphocytes # (Auto) 1.7 Thou/mm3 (1.0-4.8); Lymphocytes % (Auto) 56 % (10-50); Mean Corpuscular HGB Conc 32.8 g/dl (31.0-37.0); Mean Corpuscular Hemoglobin 35.3 pg (25.0-35.0); Mean Corpuscular Volume 108 fL (80-100); Monocytes # (Auto) 0.2 Thou/mm3 (0.0-0.8); Monocytes % (Auto) 7 % (0-12); Neutrophils # (Auto) 1.1 Thou/mm3 (1.8-7.7); Neutrophils % (Auto) 35 % (37-80); Nucleated Red Blood Cell # 0.24 Thou/mm3 (0.00-0.00); Nucleated Red Blood Cell % 8 /100 WBC (0); Platelet Count 80 Thou/mm3 (140-440); RDW Standard Deviation 111.1 fL (36.4-46.3); Red Blood Count 2.32 Miln/mm3 (4.00-5.20); White Blood Count 3.1 Thou/mm3 (3.6-11.0)
[2024-08-24 06:21] LABS: Hemoglobin 8.2 g/dL (12.0-16.0)
[2024-08-24 07:04] LABS: Alanine Aminotransferase 9 U/L (10-49); Albumin, Serum 1.8 gm/dL (3.4-4.8); Albumin/Globulin Ratio 0.6 (1.2-2.2); Alkaline Phosphatase 68 U/L (46-116); Anion Gap 5 (7-16); Aspartate Amino Transferase 36 U/L (0-34); BUN/Creatinine Ratio 33 Ratio (12-20); Bilirubin,Total 0.5 mg/dL (0.3-1.2); Blood Urea Nitrogen 26 mg/dL (9-23); Calcium 7.2 mg/dL (8.3-10.6); Carbon Dioxide 27.4 mMol/L (20.0-31.0); Chloride 103 mMol/L (98-107); Creatinine (Component) 0.8 mg/dL (0.6-1.3); Estimated Creatinine Clearance 33.8 mL/min (>60); Glucose 116 mg/dL (74-106); Magnesium 1.9 mg/dL (1.6-2.6); Osmolality,Calculated 275 (275-295); Phosphorous 3.4 mg/dL (2.4-5.1); Potassium 4.2 mMol/L (3.4-5.1); Sodium 135 mMol/L (136-145); Total Protein 4.8 gm/dL (5.7-8.2); eGFR > 60 See Note
[2024-08-24] MEDS: THIAMINE 100 MG TABLET PO (08:26)
[2024-08-24] MEDS: MULTIVITAMINS TABLET 1 TAB PO (08:26)
[2024-08-24] MEDS: SUNITINIB PO (08:27)
[2024-08-24] MEDS: PANTOPRAZOLE INJ 40 MG VIAL IVP ×2 (08:28→20:31)
--- NOTE | 2024-08-24 09:25 | PC.SS ---
Addendum entered by PAULO Noyola 08/24/24 09:27: Updated Dr. Day. Original Note: SS update: Pending home health date for peg tube feedings, per transfer RNImer.
--- NOTE | 2024-08-24 11:24 | PC.CM ---
Addendum entered by Justine Jacinto RN 08/24/24 18:20: Lauren from [facility] updated on [employer] ''insurance denied Vital. RD is reviewing the case for a new formula''. Addendum entered by Justine Jacinto RN 08/24/24 11:25: Checked with [facility], Lauren responded on [employer] ''patient didn't meet Medicare Guidelines and are to wait for [facility] to approve the TAR . Pending tube feeding delivery. Original Note: [facility] accepted the pt. start of care is 08/25.
--- NOTE | 2024-08-24 14:27 | PC.SS ---
Rounding note: pending home health establishment, currently under review per transfer nurse.
--- NOTE | 2024-08-24 15:19 | ESPR_ITS ---
<Statement entered by Marquez Day MD - 08/24/24 18:20> Patient was seen and examined at the bedside. Patient is tolerating PEG tube feeds well and was alert and oriented today more than yesterday. Patient is running on water flushes 25 cc every hour will likely change to every 4 hourly upon discharge. We are still awaiting insurance authorization for home health services. Patient had 2+ lower extremity edema and was showing positive balance on urine output therefore Lasix 20 mg IV was given x 1. Patient's family was given an option for change of CODE STATUS to DNR given patient's overall condition. Patient's family want to had a discussion inside family for coming up with the decision about it by tomorrow. Rest of the management remains same. All labs and orders reviewed. I saw and examined the patient, and I agree with current management stated by Dr Ford MD,PGY1. Plan of care was discussed with the attending physician and resident physician. Disclaimer: Despite multiple revisions, due to the dictation software being used, the document bellow may not be free of grammatical errors including phonetic/typographic errors. However, this does not deter from our commitment to providing health care in the patient's best interest in mind. Dr. Lindsay MD, PGY 2 Documentation for date of: 08/24/24 Subjective Subjective Interval history: Patient is an 88-year-old female with a past medical history of gastric cancer s/p gastrectomy on chemotherapy and lower GI bleed. Overnight, patient was desaturating to low 90s while sleeping. Patient examined at bedside. Denied shortness of breath or chest pain. Denied melena or hematochezia. Daughter's at bedside. Saturating well on 1 L N.C. Exam Vital Signs Temp Pulse Resp BP Pulse Ox O2 Del Method O2 Flow Rate 97.2 F 92 18 173/96 H 99 Room Air 2 08/24/24 11:43 08/24/24 12:00 08/24/24 11:43 08/24/24 11:43 08/24/24 11:43 08/24/24 11:43 08/24/24 07:32 Narrative Exam General Appearance: Alert & Oriented X3, well-nourished female who is lying in bed in no acute distress. HEENT: Skull symmetrical and atraumatic. Conjunctivae pin and moist. Pupils equal, round, reactive to light and accommodation (PERRL). External ear without lesion or discharge. Straight, nares patient, mucosa pink, no discharge. No thyroid nodule appreciated. Cardio: Normal Rate and Rhythm with S1 and S2 heart sounds. No murmurs or extra heart sounds auscultated. No bruits on carotid auscultation. No peripheral edema or cyanosis. Lungs: Symmetric with good expansion. Chest and back non-tender. Breath sounds vesicular without crackles, wheezing or rhonchi Abdomen: Non-tender, Non-distended, Normal Reactive Bowel Sounds Neuro: Alert, cooperative, oriented to person, place, and time. Speech clear. CN grossly intact. Upper motor strength 5/5 and Lower motor strength 5/5. Sensation intact. Objective Labs 08/24/24 05:55 08/24/24 05:55 Labs: Laboratory Results - last 24 hr 08/24/24 05:55 WBC 3.1 L D RBC 2.32 L Hgb 8.2 L Hct 25.0 L MCV 108 H MCH 35.3 H MCHC 32.8 RDW Std Deviation 111.1 H Plt Count 80 L Neut % (Auto) 35 L Lymph % (Auto) 56 H [place] % (Auto) 7 Eos % (Auto) 2 Baso % (Auto) 0 Neut # (Auto) 1.1 L Lymph # (Auto) 1.7 [place] # (Auto) 0.2 Eos # (Auto) 0.1 Baso # (Auto) 0.0 Immature Gran # (Auto) 0.01 H Absolute Nucleated RBC 0.24 H Immature Gran % 0 Nucleated RBC % 8 H Sodium 135 L Potassium 4.2 Chloride 103 Carbon Dioxide 27.4 Anion Gap 5 L BUN 26 H Creatinine 0.8 Estim Creat Clear Calc 33.8 L eGFR > 60 BUN/Creatinine Ratio 33 H Glucose 116 H Calculated Osmolality 275 Calcium 7.2 L Corrected Calcium 9.0 Phosphorus 3.4 Magnesium 1.9 Total Bilirubin 0.5 AST 36 H ALT 9 L Alkaline Phosphatase 68 Total Protein 4.8 L Albumin 1.8 L Globulin 3.0 Albumin/Globulin Ratio 0.6 L Quality Measures Quality Measures VTE prophylaxis Advance care planning discussed with:: patient Assessment & Plan Assessment Current Active Medications: Generic Name Dose Route Start Last Admin Trade Name Freq PRN Reason Stop Dose Admin Acetaminophen 650 mg 08/11/24 02:10 08/24/24 01:41 Acetaminophen 325 Mg Tablet PO 09/10/24 02:09 650 mg Q6H PRN Administration PAIN OR FEVER > 101 Artificial Tears 0 drop 08/12/24 15:04 08/13/24 09:43 Artificial Tears 225 Drop/15 Ml Btl BOTH EYES 09/11/24 15:03 2 drops PRN PRN Administration TO KEEP EYES MOIST Artificial Tears 0 drop 08/12/24 22:00 08/24/24 14:54 Artificial Tears 225 Drop/15 Ml Btl BOTH EYES 09/11/24 21:59 2 drops TID LAKESHA Administration Sunitib Malate 25 Mg 0 ea 08/12/24 09:00 08/24/24 08:27 Capsules PO 09/11/24 08:59 1 capsule DAILY LAKESHA Administration Mirtazapine 7.5 mg 08/12/24 21:00 08/23/24 21:02 Mirtazapine 15 Mg Tablet PO 09/11/24 20:59 7.5 mg HS LAKESHA Administration Multivitamins 1 tab 08/18/24 15:30 08/24/24 08:26 Multivitamins Tablet PO 09/17/24 15:29 1 tab QDAY LAKESHA Administration Ondansetron HCl 4 mg 08/11/24 02:10 Ondansetron Inj 2 Mg/Ml Inj 2 Ml IV 09/10/24 02:09 Q6H PRN NAUSEA OR VOMITING Protocol Pantoprazole Sodium 40 mg 08/11/24 09:00 08/24/24 08:28 Pantoprazole Inj 40 Mg Vial IVP 09/10/24 08:59 40 mg Q12HR LAKESHA Administration Thiamine HCl 100 mg 08/18/24 15:30 08/24/24 08:26 Thiamine 100 Mg Tablet PO 09/17/24 15:29 100 mg QDAY LAKESHA Administration Plan Patient is a Tagalog-speaking 88-year-old female with a past medical history of gastric cancer status post partial gastrectomy and currently on sunitinib malate chemotherapy (previously on nilotinib) who was admitted on 08/11/2024 who was admitted for lower GI bleed, s/p PEG tube, pending SNF. #Symptomatic anemia #GI bleed Etiology: Given colonoscopy findings on 08/17/2022 for hemorrhoids and diverticulosis with complicating history of gastric cancer, lower GI bleed cannot be ruled out. FOBT positive. Upper GI bleed less likely given negative EGD. Diagnostics: EGD (08/13/2024) esophagitis: Colonoscopy (08/16/2024): Hemorrhoids, diverticulosis, limited colonoscopy-stopped at the mid transverse colon as patient was not tolerating procedure with elevated heart rate. Diagnostics: CBC (08/23/2024): WBC 2.1, Hgb 8.4, hct 25.4, MCV 105-->CBC (08/24/2024)WBC 3.1, Hgb 8.2, Hct 25.0, Platelets 80 Plan: -Transfuse if Hgb < 7.0. - Dysphagia 2 diet - Refeeding via PEG tube started, currently at goal of 45cc/hr and 25 cc FWF. - Feeding instructions per dietitian recommendations: vital 1.2 at 20 ml/hr via PEG tube by pump- will consider increasing after 8 hours - Dietitian recommendations: Thiamine, multivitamins - Monitor daily labs for potassium, phosphorus, magnesium ? Pantoprazole 40 mg IV twice daily. - GI consulted, Dr. Ledesma, appreciate recommendations. - Outpatient air contrast barium enema when patient is more stable -Pending home health. #Failure to thrive #Cachexia Given past medical history of gastric cancer status post gastric ectomy, likely failure to thrive secondary to cancer and chemo medication. Patient is now status post PEG tube placement 08/15/2024. Diagnostics: -Total protein (08/23/2024): Total Protein 4.6 and Albumin 1.7-->(08/24/2024) Albumin 1.8 (L) -BMI 17.1 Plan: -PEG tube feeding began -08/18/24 -Feeding instructions via tube - vital 1.2 at 45 ml/hr via PEG tube ?Ensure with every meal. -Consult dietitian. -Resumed home mirtazapine 7.5mg. #Goals of Care Goals of care discussed with family including code status. Currently want patient to be full code. #History of gastric cancer. #Pancytopenia. #Leukopenia. #Thrombocytopenia. Per son, patient currently takes sunitinib malate and previously on nilotinib (Tasigna). Diagnostics: CBC (08/24/2024)WBC 3.1, Hgb 8.2, Hct 25.0, Platelets 80 Plan: -Resume home meds -F/U with oncologist within 1-2 weeks from discharge -Neutropenic Precautions #Hypokalemia- resolved Plan: - will continue to monitor #Atrial fibrillation, new onset - resolved No history of atrial fibrillation, [id number] 3. Will defer anticoagulation given GI bleed. #Elevated troponins- resolved. #NSTEMI type II, demand ischemia. Initial troponin 0.046 -> 0.049, likely due to chronic anemia. Health Maintenance: Disp: Pt is currently admitted to floors for further management of GI bleeding, awaiting home health FEN: Dysphagia 2 Mechanical Altered DVT: compression device Code: Full Code - The patient's plan was discussed with attending Dr. Lockett and Dr. Day, senior resident. Kathy Youngblood MD PGY1 Internal Medicine Attending Provider Attestation/Addendum I have examined the patient, reviewed labs and imaging findings, discussed the case with the resident(s), and reviewed entered orders. I agree with the plan of care as outlined in this note, with these additional summaries/recommendations: Patient seen at bedside. No acute overnight events. Patient is status post colonoscopy & colonoscopy for GI bleed. Continue pantoprazole 40 mg twice daily. Patient has failure to thrive, severe malnutrition and hypoalbuminemia. Family elected for PEG tube and status post PEG tube on 08/15/2024. At goal rate of tube feeds and free water flushes. Case management working on arranging home health for tube feed management. Hospital course complicated by new onset atrial fibrillation with RVR which has now resolved. Not a candidate for anticoagulation given GI bleeding and fall risk. Patient may follow-up outpatient for history of gastric cancer. Severe pancytopenia present likely 2/2 to poor oral intake and chemotherapy which patient can follow-up outpatient. Pending home health. Daughter was updated at bedside and all questions answered to satisfaction. Dr. Lockett
[2024-08-24] MEDS: FUROSEMIDE INJ 10 MG/ML VIAL 2 ML 20 MG IVP (18:22)
--- NOTE | 2024-08-24 20:10 | PD.IMPROG ---
Documentation for date of: 08/24/24 Subjective Subjective Interval history: PEG site evaluated No drainage at the PEG site Hemoglobin hematocrit holding up Exam Vital Signs Temp Pulse Resp BP Pulse Ox O2 Del Method O2 Flow Rate 97.3 F 101 H 17 129/70 95 Room Air 2 08/24/24 15:47 08/24/24 18:22 08/24/24 15:47 08/24/24 18:22 08/24/24 15:47 08/24/24 15:47 08/24/24 07:32 Objective Labs 08/24/24 05:55 08/24/24 05:55 Labs: Laboratory Results - last 24 hr 08/24/24 05:55 WBC 3.1 L D RBC 2.32 L Hgb 8.2 L Hct 25.0 L MCV 108 H MCH 35.3 H MCHC 32.8 RDW Std Deviation 111.1 H Plt Count 80 L Neut % (Auto) 35 L Lymph % (Auto) 56 H [place] % (Auto) 7 Eos % (Auto) 2 Baso % (Auto) 0 Neut # (Auto) 1.1 L Lymph # (Auto) 1.7 Sebastian # (Auto) 0.2 Eos # (Auto) 0.1 Baso # (Auto) 0.0 Immature Gran # (Auto) 0.01 H Absolute Nucleated RBC 0.24 H Immature Gran % 0 Nucleated RBC % 8 H Sodium 135 L Potassium 4.2 Chloride 103 Carbon Dioxide 27.4 Anion Gap 5 L BUN 26 H Creatinine 0.8 Estim Creat Clear Calc 33.8 L eGFR > 60 BUN/Creatinine Ratio 33 H Glucose 116 H Calculated Osmolality 275 Calcium 7.2 L Corrected Calcium 9.0 Phosphorus 3.4 Magnesium 1.9 Total Bilirubin 0.5 AST 36 H ALT 9 L Alkaline Phosphatase 68 Total Protein 4.8 L Albumin 1.8 L Globulin 3.0 Albumin/Globulin Ratio 0.6 L Impressions Impression: # Gastric carcinoma currently on chemotherapy # Failure to thrive # Anemia Continue current management Assessment & Plan A&P Narrative # 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 and episode of hematochezia Obvious cause of bleeding is gastric carcinoma however there could be additional source of bleeding from the lower GI tract Initial plan of care is to do an upper endoscopy to see if there is an active bleeding going on and if that is negative we will consider doing a fibrotic colonoscopy examination Informed consent obtained from the family and we will proceed with the procedure Other medical problems include the following # A-fib with RVR rate controlled # Elevated troponin # come back to normal # Cachexia with hypoproteinemia and hypoalbuminemia Will follow the patient Thank you very much for the opportunity to participate in the care of this patient Time Spent With Patient Time: Total time spent is greater than 50% in coordination of care (as documented) at patient's floor/unit and/or counseling patient:
[2024-08-24] MEDS: MIRTAZAPINE 15 MG TABLET 7.5 MG PO (20:31)
[2024-08-25] VITALS: BP 109/63; PULSE 124; PULSE 125; RESP 18; TEMP 36.6; O2SAT 96
[2024-08-25] MEDS: ACETAMINOPHEN 325 MG TABLET 650 MG PO (02:59)
--- NOTE | 2024-08-25 03:44 | PC.NURSE ---
MD was made aware that heart rate has been sustaining to 20s-28s. Patient is sleeping with eyes closed, respirations even and unlabored, in no apparent distress. MD came and assess patient, no new orders received.
[2024-08-25 04:00] VITALS: BP 91/54; PULSE 113; PULSE 114; RESP 20; TEMP 36.9; O2SAT 95
[2024-08-25] MEDS: Artificial Tears 225 DROP/15 ML BTL BOTH EYES ×3 (05:38→21:34)
[2024-08-25 06:15] LABS: Basophils % (Auto) 0 % (0-2.5); Eosinophils % (Auto) 1 % (0-10); Immature Granulocytes % (Auto) 1 % (0-0); Immature Granulocytes Auto 0.02 Thou/mm3 (0.00-0.00); Lymphocytes # (Auto) 0.7 Thou/mm3 (1.0-4.8); Lymphocytes % (Auto) 29 % (10-50); Mean Corpuscular HGB Conc 33.5 g/dl (31.0-37.0); Mean Corpuscular Volume 108 fL (80-100); Monocytes # (Auto) 0.2 Thou/mm3 (0.0-0.8); Monocytes % (Auto) 7 % (0-12); Neutrophils # (Auto) 1.5 Thou/mm3 (1.8-7.7); Neutrophils % (Auto) 63 % (37-80); Nucleated Red Blood Cell # 0.27 Thou/mm3 (0.00-0.00); Nucleated Red Blood Cell % 11 /100 WBC (0); RDW Standard Deviation 111.8 fL (36.4-46.3)
[2024-08-25 06:23] LABS: Hematocrit 21.2 % (36.0-46.0); Hemoglobin 7.1 g/dL (12.0-16.0); Platelet Count 75 Thou/mm3 (140-440); Red Blood Count 1.97 Miln/mm3 (4.00-5.20); White Blood Count 2.5 Thou/mm3 (3.6-11.0)
[2024-08-25 06:30] LABS: Alanine Aminotransferase < 7 U/L (10-49); Albumin, Serum 1.6 gm/dL (3.4-4.8); Albumin/Globulin Ratio 0.6 (1.2-2.2); Alkaline Phosphatase 65 U/L (46-116); Anion Gap 6 (7-16); Aspartate Amino Transferase 42 U/L (0-34); BUN/Creatinine Ratio 34 Ratio (12-20); Bilirubin,Total 0.5 mg/dL (0.3-1.2); Blood Urea Nitrogen 27 mg/dL (9-23); Calcium (Corrected) 8.9 mg/dL (8.5-10.1); Carbon Dioxide 26.8 mMol/L (20.0-31.0); Chloride 102 mMol/L (98-107); Creatinine (Component) 0.8 mg/dL (0.6-1.3); Estimated Creatinine Clearance 33.8 mL/min (>60); Globulin 2.7 gm/dL (2.3-3.5); Glucose 118 mg/dL (74-106); Osmolality,Calculated 276 (275-295); Potassium 4.1 mMol/L (3.4-5.1); Sodium 135 mMol/L (136-145); Total Protein 4.3 gm/dL (5.7-8.2); eGFR > 60 See Note
[2024-08-25 08:00] VITALS: BP 94/62; PULSE 100; PULSE 104; RESP 19; TEMP 36.9; O2SAT 97
[2024-08-25] MEDS: MULTIVITAMINS TABLET 1 TAB PO (08:26)
[2024-08-25] MEDS: SUNITINIB PO (08:27)
[2024-08-25] MEDS: PANTOPRAZOLE INJ 40 MG VIAL IVP ×2 (08:28→21:33)
[2024-08-25] MEDS: THIAMINE 100 MG TABLET PO (08:32)
[2024-08-25 09:32] LABS: Slide Review Platelets confirmed
[2024-08-25 10:14] LABS: Hematocrit 22.6 % (36.0-46.0)
[2024-08-25 10:18] LABS: Hemoglobin 7.4 g/dL (12.0-16.0)
--- NOTE | 2024-08-25 10:34 | EKG_ITS ---
[facility] Test Date: 2024-08-25 Pat Name: JACOBO MCNEAL Department: Room: 58A Gender: Female Ironer Hand: FLORECITA : 1935 Requested By: Librado Callaway Order Number: [id number] Reading MD: Librado Callaway Measurements Intervals [place] Rate: 105 P: 42 [place]: 180 QRS: 10 QRSD: 76 T: 0 QT: 356 QTc: 471 Interpretive Statements SINUS TACHYCARDIA LOW QRS VOLTAGE IN EXTREMITY LEADS [QRS DEFLECTION < 0.5 mV IN LIMB LEADS] MODERATE T-WAVE ABNORMALITY, CONSIDER ANTERIOR ISCHEMIA [-0.1+ mV T WAVE IN V3/V4] Compared to ECG 08/17/2024 16:24:02 No significant changes /store/S0/[id number].pdf
[2024-08-25 11:13] VITALS: BMI 17.4
[2024-08-25] MEDS: ALBUMIN HUMAN 25% IVPB 12.5 GM/50 ML BTL IV (11:26)
[2024-08-25 12:00] VITALS: BP 99/60; PULSE 101; RESP 19; TEMP 36.6; O2SAT 93
--- NOTE | 2024-08-25 15:50 | ESPR_ITS ---
<Statement entered by Marquez Day MD - 08/25/24 15:53> Patient was seen and examined at the bedside. Patient had a drop in hemoglobin therefore H&H was repeated which showed hemoglobin 7.4. Patient is currently waiting for home health services. Tube feeds were changed given not covered by insurance per dietitian recommendations. PT to evaluate the patient today. Albumin was started given low albumin and soft blood pressure. EKG was ordered to follow-up with sinus tachycardia. All labs and orders were reviewed. Goals of care discussion was performed with the family again in regards to patient's CODE STATUS and they wanted to have discussion with the family again to come up with a decision however was explained that if they want to change her CODE STATUS to DNR they can always reach out to us. For now they want to keep CODE STATUS as full and will respect patient's family decisions and wishes. The discussion was performed by attending physician in the presence of patient's family members and resident physicians. I saw and examined the patient, and I agree with current management stated by Dr Ford MD,PGY1. Plan of care was discussed with the attending physician and resident physician. Disclaimer: Despite multiple revisions, due to the dictation software being used, the document bellow may not be free of grammatical errors including phonetic/typographic errors. However, this does not deter from our commitment to providing health care in the patient's best interest in mind. Dr. Lindsay MD, PGY 2 Documentation for date of: 08/25/24 Subjective Subjective Interval history: Patient is an 88-year-old female with a past medical history of gastric cancer s/p gastrectomy on chemotherapy and lower GI bleed. Overnight patient experienced bilateral pedal edema. 1 times dose of Lasix 20 mg IV push given. Bladder scan ordered-unremarkable. Patient examined at bedside this morning and bilateral pedal edema improved. Family at bedside. Spoke with family about goals of care and poor prognosis for patient given poor oral intake and pancytopenia. Exam Vital Signs Temp Pulse Resp BP Pulse Ox O2 Del Method O2 Flow Rate 97.9 F 101 H 19 99/60 93 L Room Air 2 08/25/24 12:00 08/25/24 12:00 08/25/24 12:00 08/25/24 12:00 08/25/24 12:00 08/25/24 12:00 08/25/24 08:00 Narrative Exam General Appearance: Alert & Oriented X3, well-nourished female who is lying in bed in no acute distress HEENT: Skull symmetrical and atraumatic. Conjunctivae pin and moist. Pupils equal, round, reactive to light and accommodation (PERRL). External ear without lesion or discharge. Straight, nares patient, mucosa pink, no discharge. Cardio: Normal Rate and Rhythm with S1 and S2 heart sounds. No murmurs or extra heart sounds auscultated. No bruits on carotid auscultation. No peripheral edema or cyanosis. Lungs: Symmetric with good expansion. Chest and back non-tender. Breath sounds vesicular without crackles, wheezing or rhonchi Abdomen: Non-tender, Non-distended, Normal Reactive Bowel Sounds. PEG tube in place. Neuro: Alert, cooperative, oriented to person, place, and time. Speech clear. CN grossly intact. Upper motor strength 5/5 and Lower motor strength 5/5. Sensation intact. Objective Labs 08/25/24 09:43 08/25/24 04:54 Labs: Laboratory Results - last 24 hr 08/25/24 08/25/24 04:54 09:43 WBC 2.5 L RBC 1.97 L* Hgb 7.1 L 7.4 L Hct 21.2 L* 22.6 L MCV 108 H MCH 36.0 H MCHC 33.5 RDW Std Deviation 111.8 H Plt Count 75 L Neut % (Auto) 63 Lymph % (Auto) 29 [place] % (Auto) 7 Eos % (Auto) 1 Baso % (Auto) 0 Neut # (Auto) 1.5 L Lymph # (Auto) 0.7 L [place] # (Auto) 0.2 Eos # (Auto) 0.0 Baso # (Auto) 0.0 Immature Gran # (Auto) 0.02 H Absolute Nucleated RBC 0.27 H Immature Gran % 1 H Nucleated RBC % 11 H Sodium 135 L Potassium 4.1 Chloride 102 Carbon Dioxide 26.8 Anion Gap 6 L BUN 27 H Creatinine 0.8 Estim Creat Clear Calc 33.8 L eGFR > 60 BUN/Creatinine Ratio 34 H Glucose 118 H Calculated Osmolality 276 Calcium 7.0 L Corrected Calcium 8.9 Total Bilirubin 0.5 AST 42 H ALT < 7 L Alkaline Phosphatase 65 Total Protein 4.3 L Albumin 1.6 L Globulin 2.7 Albumin/Globulin Ratio 0.6 L Misc Test Result Platelets confirmed Quality Measures Quality Measures VTE prophylaxis Advance care planning discussed with:: patient and child Assessment & Plan Assessment Current Active Medications: Generic Name Dose Route Start Last Admin Trade Name Freq PRN Reason Stop Dose Admin Acetaminophen 650 mg 08/11/24 02:10 08/25/24 02:59 Acetaminophen 325 Mg Tablet PO 09/10/24 02:09 650 mg Q6H PRN Administration PAIN OR FEVER > 101 Artificial Tears 0 drop 08/12/24 15:04 08/13/24 09:43 Artificial Tears 225 Drop/15 Ml Btl BOTH EYES 09/11/24 15:03 2 drops PRN PRN Administration TO KEEP EYES MOIST Artificial Tears 0 drop 08/12/24 22:00 08/25/24 13:39 Artificial Tears 225 Drop/15 Ml Btl BOTH EYES 09/11/24 21:59 2 drops TID LAKESHA Administration Sunitib Malate 25 Mg 0 ea 08/12/24 09:00 08/25/24 08:27 Capsules PO 09/11/24 08:59 1 capsule DAILY ALKESHA Administration Mirtazapine 7.5 mg 08/12/24 21:00 08/24/24 20:31 Mirtazapine 15 Mg Tablet PO 09/11/24 20:59 7.5 mg HS LAKESHA Administration Multivitamins 1 tab 08/18/24 15:30 08/25/24 08:26 Multivitamins Tablet PO 09/17/24 15:29 1 tab QDAY LAKESHA Administration Ondansetron HCl 4 mg 08/11/24 02:10 Ondansetron Inj 2 Mg/Ml Inj 2 Ml IV 09/10/24 02:09 Q6H PRN NAUSEA OR VOMITING Protocol Pantoprazole Sodium 40 mg 08/11/24 09:00 08/25/24 08:28 Pantoprazole Inj 40 Mg Vial IVP 09/10/24 08:59 40 mg Q12HR LAKESHA Administration Thiamine HCl 100 mg 08/18/24 15:30 08/25/24 08:32 Thiamine 100 Mg Tablet PO 09/17/24 15:29 100 mg QDAY LAKESHA Administration Plan Patient is a Tagalog-speaking 88-year-old female with a past medical history of gastric cancer status post partial gastrectomy and currently on sunitinib malate chemotherapy (previously on nilotinib) who was admitted on 08/11/2024 who was admitted for lower GI bleed, s/p PEG tube, pending SNF. #Symptomatic anemia #GI bleed Etiology: Given colonoscopy findings on 08/17/2022 for hemorrhoids and diverticulosis with complicating history of gastric cancer, lower GI bleed cannot be ruled out. FOBT positive. Upper GI bleed less likely given negative EGD. Diagnostics: EGD (08/13/2024) esophagitis: Colonoscopy (08/16/2024): Hemorrhoids, diverticulosis, limited colonoscopy-stopped at the mid transverse colon as patient was not tolerating procedure with elevated heart rate. Diagnostics: CBC (08/23/2024): WBC 2.1, Hgb 8.4, hct 25.4, MCV 105-->CBC (08/25/2024)WBC 2.5, Hgb 7.1, Hct 26.8, Albumin 1.6 Plan: -Transfuse if Hgb < 7.0. - Dysphagia 2 diet - Refeeding via PEG tube started, currently at goal of 45cc/hr and 25 cc FWF. - Feeding instructions per dietitian recommendations: vital 1.2 at 20 ml/hr via PEG tube by pump- will consider increasing after 8 hours - Dietitian recommendations: Thiamine, multivitamins - Monitor daily labs for potassium, phosphorus, magnesium ? Pantoprazole 40 mg IV twice daily. - GI consulted, Dr. Ledesma, appreciate recommendations. - Outpatient air contrast barium enema when patient is more stable -Pending home health. #Failure to thrive #Cachexia Given past medical history of gastric cancer status post gastric ectomy, likely failure to thrive secondary to cancer and chemo medication. Patient is now status post PEG tube placement 08/15/2024. Given patinet's poor oral intake, decreased albumin, and decreased mobility, edema likely secondary to third spacing. Albumin 12.5 g given. PT Consulted for further recommendations. Diagnostics: -Total protein (08/23/2024): Total Protein 4.6 and Albumin 1.7-->(08/25/2024) Albumin 1.6 (L) -BMI 17.1 Plan: -PEG tube feeding began -08/18/24 -Feeding instructions via tube - vital 1.2 at 45 ml/hr via PEG tube -Albumin 12.5 grams X1 -PT referral ?Ensure with every meal. -Consult dietitian. -Resumed home mirtazapine 7.5mg. #Goals of Care Goals of care discussed with family including code status. Currently want patient to be full code. On 08/25/2024, Goals of care once again discussed with patient and patient's family at bedside. Poor prognosis given PEG tube and decreased oral intake. #History of gastric cancer. #Pancytopenia. #Leukopenia. #Thrombocytopenia. Per son, patient currently takes sunitinib malate and previously on nilotinib (Tasigna). Diagnostics: CBC (08/24/2024)WBC 3.1, Hgb 8.2, Hct 25.0, Platelets 80--> 08/25/2024 WBC 2.5, Hgb 7.1, Hct 21.2, MCV 108, Repeat hbg 7.4 Plan: -Resume home meds -F/U with oncologist within 1-2 weeks from discharge -Neutropenic Precautions #Hypokalemia- resolved Plan: - will continue to monitor #Atrial fibrillation, new onset - resolved No history of atrial fibrillation, [id number] 3. Will defer anticoagulation given GI bleed. #Elevated troponins- resolved. #NSTEMI type II, demand ischemia. Initial troponin 0.046 -> 0.049, likely due to chronic anemia. Plan No acute intervention Health Maintenance: Disp: Pt is currently admitted to floors for further management of GI bleeding, awaiting home health FEN: Dysphagia 2 Mechanical Altered DVT: compression device Code: Full Code - The patient's plan was discussed with attending Dr. Lockett and Dr. Day, senior resident. Kathy Youngblood MD PGY1 Internal Medicine Attending Provider Attestation/Addendum I have examined the patient, reviewed labs and imaging findings, discussed the case with the resident(s), and reviewed entered orders. I agree with the plan of care as outlined in this note, with these additional summaries/recommendations: Patient seen at bedside. No acute overnight events. Patients family at bedside and updated on patients status. Code status was discussed at length and at this time family would like to continue with full code and will update medical team if they decide to change status to DNR/DNI. Patient is status post EGD & colonoscopy for GI bleed. Continue pantoprazole 40 mg twice daily. Patient has failure to thrive, severe malnutrition and hypoalbuminemia. Family elected for PEG tube and status post PEG tube on 08/15/2024. At goal rate of tube feeds and free water flushes. Case management working on arranging home health for tube feed management. Hospital course complicated by new onset atrial fibrillation with RVR which has now resolved. Not a candidate for anticoagulation given GI bleeding and fall risk. Patient may follow-up outpatient for history of gastric cancer. Severe pancytopenia present likely 2/2 to poor oral intake and chemotherapy which patient can follow-up outpatient. Pending home health. Daughter was updated at bedside and all questions answered to satisfaction. Dr. Lockett
[2024-08-25 16:00] VITALS: BP 107/72; PULSE 105; PULSE 108; RESP 21; TEMP 37.2; O2SAT 93
[2024-08-25 20:00] VITALS: BP 120/63; PULSE 102; PULSE 109; RESP 19; TEMP 37.7; O2SAT 96
[2024-08-25] MEDS: MIRTAZAPINE 15 MG TABLET 7.5 MG PO (21:33)
--- NOTE | 2024-08-25 21:33 | PD.IMPROG ---
Documentation for date of: 08/25/24 Subjective Subjective Interval history: No drainage at the PEG site Very poor p.o. intake Enteral feeding to continue Exam Vital Signs Temp Pulse Resp BP Pulse Ox O2 Del Method O2 Flow Rate 98.9 F 108 H 21 H 107/72 93 L Nasal Cannula 2 08/25/24 16:00 08/25/24 16:00 08/25/24 16:00 08/25/24 16:00 08/25/24 16:00 08/25/24 16:00 08/25/24 16:00 Objective Labs 08/25/24 09:43 08/25/24 04:54 Labs: Laboratory Results - last 24 hr 08/25/24 08/25/24 04:54 09:43 WBC 2.5 L RBC 1.97 L* Hgb 7.1 L 7.4 L Hct 21.2 L* 22.6 L MCV 108 H MCH 36.0 H MCHC 33.5 RDW Std Deviation 111.8 H Plt Count 75 L Neut % (Auto) 63 Lymph % (Auto) 29 [place] % (Auto) 7 Eos % (Auto) 1 Baso % (Auto) 0 Neut # (Auto) 1.5 L Lymph # (Auto) 0.7 L [place] # (Auto) 0.2 Eos # (Auto) 0.0 Baso # (Auto) 0.0 Immature Gran # (Auto) 0.02 H Absolute Nucleated RBC 0.27 H Immature Gran % 1 H Nucleated RBC % 11 H Sodium 135 L Potassium 4.1 Chloride 102 Carbon Dioxide 26.8 Anion Gap 6 L BUN 27 H Creatinine 0.8 Estim Creat Clear Calc 33.8 L eGFR > 60 BUN/Creatinine Ratio 34 H Glucose 118 H Calculated Osmolality 276 Calcium 7.0 L Corrected Calcium 8.9 Total Bilirubin 0.5 AST 42 H ALT < 7 L Alkaline Phosphatase 65 Total Protein 4.3 L Albumin 1.6 L Globulin 2.7 Albumin/Globulin Ratio 0.6 L Misc Test Result Platelets confirmed Impressions Impression: # Failure to thrive # Cachexia Continue enteral feeding Assessment & Plan A&P Narrative # 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 and episode of hematochezia Obvious cause of bleeding is gastric carcinoma however there could be additional source of bleeding from the lower GI tract Initial plan of care is to do an upper endoscopy to see if there is an active bleeding going on and if that is negative we will consider doing a fibrotic colonoscopy examination Informed consent obtained from the family and we will proceed with the procedure Other medical problems include the following # A-fib with RVR rate controlled # Elevated troponin # come back to normal # Cachexia with hypoproteinemia and hypoalbuminemia Will follow the patient Thank you very much for the opportunity to participate in the care of this patient Time Spent With Patient Time: Total time spent is greater than 50% in coordination of care (as documented) at patient's floor/unit and/or counseling patient:
[2024-08-26] VITALS (9 sets, daily range): BP systolic 100–126; BP diastolic 54–91; PULSE 99–114; RESP 16–23; TEMP 36.3–37; O2SAT 92–97; BMI 20.2
[2024-08-26] MEDS: Artificial Tears 225 DROP/15 ML BTL BOTH EYES ×3 (05:22→21:08)
[2024-08-26 06:14] LABS: Basophils % (Auto) 0 % (0-2.5); Eosinophils # (Auto) 0.1 Thou/mm3 (0.0-0.5); Eosinophils % (Auto) 2 % (0-10); Hematocrit 23.6 % (36.0-46.0); Immature Granulocytes % (Auto) 1 % (0-0); Immature Granulocytes Auto 0.02 Thou/mm3 (0.00-0.00); Lymphocytes # (Auto) 1.2 Thou/mm3 (1.0-4.8); Lymphocytes % (Auto) 32 % (10-50); Mean Corpuscular HGB Conc 32.2 g/dl (31.0-37.0); Mean Corpuscular Volume 112 fL (80-100); Monocytes # (Auto) 0.3 Thou/mm3 (0.0-0.8); Monocytes % (Auto) 7 % (0-12); Neutrophils # (Auto) 2.2 Thou/mm3 (1.8-7.7); Neutrophils % (Auto) 59 % (37-80); Nucleated Red Blood Cell # 0.17 Thou/mm3 (0.00-0.00); Nucleated Red Blood Cell % 5 /100 WBC (0); Platelet Count 106 Thou/mm3 (140-440); Red Blood Count 2.11 Miln/mm3 (4.00-5.20)
[2024-08-26 06:17] LABS: Hemoglobin 7.6 g/dL (12.0-16.0); White Blood Count 3.7 Thou/mm3 (3.6-11.0)
[2024-08-26 07:00] LABS: Alanine Aminotransferase 9 U/L (10-49); Albumin, Serum 1.8 gm/dL (3.4-4.8); Albumin/Globulin Ratio 0.6 (1.2-2.2); Alkaline Phosphatase 58 U/L (46-116); Anion Gap 5 (7-16); Aspartate Amino Transferase 42 U/L (0-34); BUN/Creatinine Ratio 31 Ratio (12-20); Bilirubin,Total 0.5 mg/dL (0.3-1.2); Blood Urea Nitrogen 25 mg/dL (9-23); Calcium 7.3 mg/dL (8.3-10.6); Calcium (Corrected) 9.1 mg/dL (8.5-10.1); Carbon Dioxide 26.7 mMol/L (20.0-31.0); Chloride 103 mMol/L (98-107); Creatinine (Component) 0.8 mg/dL (0.6-1.3); Estimated Creatinine Clearance 33.8 mL/min (>60); Glucose 102 mg/dL (74-106); Osmolality,Calculated 274 (275-295); Potassium 4.1 mMol/L (3.4-5.1); Sodium 135 mMol/L (136-145); Total Protein 4.8 gm/dL (5.7-8.2); eGFR > 60 See Note
[2024-08-26] MEDS: THIAMINE 100 MG TABLET PO (09:46)
[2024-08-26] MEDS: SUNITINIB PO (09:46)
[2024-08-26] MEDS: MULTIVITAMINS TABLET 1 TAB PO (09:46)
[2024-08-26] MEDS: PANTOPRAZOLE INJ 40 MG VIAL IVP ×2 (09:46→20:42)
--- NOTE | 2024-08-26 11:52 | PC.CM ---
Addendum entered by Justine Jacinto RN 08/26/24 17:08: Called bedside nurse and gave updates. Pt will be dc tomorrow. Bedside nurses to educate pt's daughter Angie on how to give tube feedings until [facility] sees the pt on Saturday08/28/24. Addendum entered by Justine Jacinto RN 08/26/24 17:06: spoke to Dr. Barr pt will stay one more night and will be discharged tomorrow. Delivery will be after 1300 tomorrow. Start of care date with [facility] will be on Tuesday 08/28. Addendum entered by Justine Jacinto RN 08/26/24 17:03: Lauren from [facility] informed me on [employer] that if the family don't call to schedule delivery tomorrow. she can't deliver to a PO box. She would need a physical address. I reviewed pt chart and found pt daughter Angie Harris [phone] if POC. I called Angie and connected a conference call with Lauren at [facility] so that delivery can be scheduled. Delivery will be after 1300 tomorrow. Addendum entered by Justine Jacinto RN 08/26/24 16:41: Home TF orders are Vital AF 1.2 240mL 5x/day via G-tube, by syringe to provide: total volume 1200 mL, 1420kcal, 89g PRO, 100 mL water flush after feeds plus medication flush. Spoke to bedside nurse to give Vital AF 1.2 x3 bottles to last till tomorrow until the delivery is made. I also gave number for [facility] to bedside nurse so that Son Irwin can coordinate the tube feeding delivery with [facility]. Addendum entered by Justine Jacinto RN 08/26/24 16:37: Lauren from [facility] asked if I can have the family call me. She has been trying to schedule delivery. Addendum entered by Justine Jacinto RN 08/26/24 16:20: spoke to Dr. Day that delivery will be made tomorrow. We need to send tube feeding formula with the pt. Dr. Day informed me that family already aware about how to give tube feedings. Addendum entered by Justine Jacinto RN 08/26/24 16:20: Lauren from [facility] informed me on [employer] that delivery will be made tomorrow. Addendum entered by Justine Jacinto RN 08/26/24 16:18: called Dr. Day and informed. Plan is daily release and dupe printer to give recs for bolus feeding and educate the family member on how to give bolus feedings until [facility] see the pt on Saturday08/28/24. I am also waiting on [facility] to let me know when they can deliver the equipment and tube feedings. Addendum entered by Justine Jacinto RN 08/26/24 16:17: I called [facility] and spoke to Phoebe for start of care date. Phoebe stated start of care date will be Tuesday 08/28. They don't have have anything sooner available. Original Note: Lauren with [facility] informed me on [employer] that TAR was approved.
[2024-08-26 12:47] LABS: Band Neutrophils (Manual) 4 % (0-6); Eosinophils (Manual) 2 % (0-4); Lymphocytes (Manual) 20 % (20-44); Metamyelocytes (Manual) 1 % (0-0); Monocytes (Manual) 7 % (2-9); Myelocytes (Manual) 1 % (0-0); Neutrophils (Manual) 65 % (50-70)
[2024-08-26 12:48] LABS: Acanthocytes 2+
[2024-08-26 12:49] LABS: Giant Platelets 1+; Toxic Vacuolation 1+
--- NOTE | 2024-08-26 14:58 | PC.SS ---
Rounding note: [facility].
--- NOTE | 2024-08-26 15:23 | PD.RESPRO ---
Documentation for date of: 08/26/24 Exam Vital Signs Temp Pulse Resp BP Pulse Ox O2 Del Method O2 Flow Rate 97.4 F 100 23 H 117/91 H 95 Nasal Cannula 2 08/26/24 12:00 08/26/24 13:59 08/26/24 12:00 08/26/24 12:00 08/26/24 12:00 08/26/24 08:00 08/26/24 08:00 Objective Labs 08/26/24 04:39 08/26/24 04:39 Labs: Laboratory Results - last 24 hr 08/26/24 04:39 WBC 3.7 D RBC 2.11 L Hgb 7.6 L Hct 23.6 L MCV 112 H MCH 36.0 H MCHC 32.2 RDW Std Deviation 121.0 H Plt Count 106 L D Neut % (Auto) 59 Lymph % (Auto) 32 [place] % (Auto) 7 Eos % (Auto) 2 Baso % (Auto) 0 Neut # (Auto) 2.2 Lymph # (Auto) 1.2 [place] # (Auto) 0.3 Eos # (Auto) 0.1 Baso # (Auto) 0.0 Immature Gran # (Auto) 0.02 H Absolute Nucleated RBC 0.17 H Immature Gran % 1 H Neutrophils % (Manual) 65 Monocytes % (Manual) 7 Eosinophils % (Manual) 2 Metamyelocytes % 1 H Myelocytes % 1 H Nucleated RBC % 5 H Band Neutrophils 4 Lymphocytes (Manual) 20 Toxic Vacuolation 1+ Acanthocytes (Spur) 2+ A Sodium 135 L Potassium 4.1 Chloride 103 Carbon Dioxide 26.7 Anion Gap 5 L BUN 25 H Creatinine 0.8 Estim Creat Clear Calc 33.8 L eGFR > 60 BUN/Creatinine Ratio 31 H Glucose 102 Calculated Osmolality 274 L Calcium 7.3 L Corrected Calcium 9.1 Total Bilirubin 0.5 AST 42 H ALT 9 L Alkaline Phosphatase 58 Total Protein 4.8 L Albumin 1.8 L Globulin 3.0 Albumin/Globulin Ratio 0.6 L Quality Measures Quality Measures VTE prophylaxis Assessment & Plan Assessment Current Active Medications: Generic Name Dose Route Start Last Admin Trade Name Freq PRN Reason Stop Dose Admin Acetaminophen 650 mg 08/11/24 02:10 08/25/24 02:59 Acetaminophen 325 Mg Tablet PO 09/10/24 02:09 650 mg Q6H PRN Administration PAIN OR FEVER > 101 Artificial Tears 0 drop 08/12/24 15:04 08/13/24 09:43 Artificial Tears 225 Drop/15 Ml Btl BOTH EYES 09/11/24 15:03 2 drops PRN PRN Administration TO KEEP EYES MOIST Artificial Tears 0 drop 08/12/24 22:00 08/26/24 05:22 Artificial Tears 225 Drop/15 Ml Btl BOTH EYES 09/11/24 21:59 2 drops TID LAKESHA Administration Sunitib Malate 25 Mg 0 ea 08/12/24 09:00 08/26/24 09:46 Capsules PO 09/11/24 08:59 1 capsule DAILY LAKESHA Administration Mirtazapine 7.5 mg 08/12/24 21:00 08/25/24 21:33 Mirtazapine 15 Mg Tablet PO 09/11/24 20:59 7.5 mg HS LAKESHA Administration Multivitamins 1 tab 08/18/24 15:30 08/26/24 09:46 Multivitamins Tablet PO 09/17/24 15:29 1 tab QDAY LAKESHA Administration Ondansetron HCl 4 mg 08/11/24 02:10 Ondansetron Inj 2 Mg/Ml Inj 2 Ml IV 09/10/24 02:09 Q6H PRN NAUSEA OR VOMITING Protocol Pantoprazole Sodium 40 mg 08/11/24 09:00 08/26/24 09:46 Pantoprazole Inj 40 Mg Vial IVP 09/10/24 08:59 40 mg Q12HR LAKESHA Administration Thiamine HCl 100 mg 08/18/24 15:30 08/26/24 09:46 Thiamine 100 Mg Tablet PO 09/17/24 15:29 100 mg QDAY LAKESHA Administration
--- NOTE | 2024-08-26 16:38 | PD.RESDS ---
Planned Discharge Date 08/26/24 DS: Providers Provider Date of admission: 08/11/24 02:10 Primary care physician: Physician No Primary/Family Admitting Provider: Gerardo Meza MD Attending Provider on Admission: Jerry Lockett MD Consults: 08/11/24 02:21 Consult to Gastroenterology Stat Comment: Bright red blood in stool Consulting Provider: Kimo Ledesma 08/11/24 02:22 Referral Speech Therapy Routine Comment: Swallow screen Instructions: Patient on liquid diet, please evaluate for any difficulty swallowing. 08/11/24 02:23 Referral Registered Dietitian Routine Comment: Instructions: Per son, diet consists of mostly ensure. Decreased appetite. 08/12/24 09:54 Referral Registered Dietitian Routine Comment: 08/15/24 19:38 Referral Registered Dietitian Urgent Comment: 08/25/24 12:07 Referral Physical Therapy Routine Comment: Physician Instructions: Instructions: hx of gastric cancer on PEG tube feeding, has mostly been bed bound. Attending Provider on DC: Kathy Youngblood MD Discharging Provider: Kathy Youngblood MD Hospital Course Hospital Course Hospital course: No drainage at the PEG site Very poor p.o. intake Enteral feeding to continue Time Spent with Patient Time attestation: Total time spent providing and/or coordinating discharge services: Exam Vital Signs Temp Pulse Resp BP Pulse Ox O2 Del Method O2 Flow Rate 97.4 F 100 23 H 117/91 H 95 Nasal Cannula 2 08/26/24 12:00 08/26/24 13:59 08/26/24 12:00 08/26/24 12:00 08/26/24 12:00 08/26/24 08:00 08/26/24 08:00 Discharge Plan Plan Patient Disposition: Home w/HOME HEALTH Patient condition on transfer: Stable Care Plan Goals: Continue home medications as prescribed. Continue PEG tube feeding as scheduled with water flushes(Home TF: Vital AF 1.2 240mL 5x/day via G-tube, by syringe to provide: total volume 1200 mL, 1420kcal, 89g PRO, 100 mL water flush after feeds plus medication flush) Follow up with PCP and oncology within 2 weeks. Followup with director pediatric for possible air contrast barium enema study. Prescriptions/Referrals Prescriptions/Med Rec: Continued mirtazapine 7.5 mg tablet 7.5 mg PO QPM Patient Comments: TAKE 1 TABLET BY MOUTH AT BEDTIME. sunitinib malate 25 mg capsule 25 mg PO DAILY Referrals: Gopal Dawson MD [Physician] - Kimo Ledesma MD [Physician] - Patient/Caregiver Discharge Instructions Other Discharge Activity Instructions:: Continue home medications as prescribed. Continue PEG tube feeding as scheduled. Follow up with PCP and oncology within 2 weeks. Other Discharge Diet Instructions: Home TF: Vital AF 1.2 240mL 5x/day via G-tube, by syringe to provide: total volume 1200 mL, 1420kcal, 89g PRO, 100 mL water flush after feeds plus medication flush. Education Materials: Understanding PEG Tube Feeding Print Language: Greek Discharge Order Discharge Orders: Discharge (Routine); Ordered 08/20/24 Ordered By: Joaquin Zambrano
--- NOTE | 2024-08-26 16:50 | ESPR_ITS ---
<Statement entered by Marquez Day MD - 08/26/24 17:07> Patient was seen and examined at the bedside. Patient was doing fine and her hemoglobin was stable today. We have an accepting facility which is [facility] who recommended that they will accept the patient and will start care from Saturday. Patient's family need to get trained on giving tube feedings therefore patient will be kept for 1 more day and we will likely discharge tomorrow and afterwards home health agency can follow-up with the patient as outpatient. No labs for the patient from now given patient stable. All labs and orders were reviewed. I saw and examined the patient, and I agree with current management stated by Dr Ford MD,PGY1. Plan of care was discussed with the attending physician and resident physician. Disclaimer: Despite multiple revisions, due to the dictation software being used, the document bellow may not be free of grammatical errors including phonetic/typographic errors. However, this does not deter from our commitment to providing health care in the patient's best interest in mind. Dr. Lindsay MD, PGY 2 Documentation for date of: 08/26/24 Subjective Subjective Interval history: Patient is an 88-year-old female with a past medical history of gastric cancer s/p gastrectomy on chemotherapy and lower GI bleed. No overnight reported reported. Patient examined at bedside. Alert and cooperative with family members present at bedside. Home health approved for patient and likely will be DC'd tomorrow. Going home with PEG tube patient continues to eat very little and pancytopenia remains unchanged. Exam Vital Signs Temp Pulse Resp BP Pulse Ox O2 Del Method O2 Flow Rate 97.4 F 100 23 H 117/91 H 95 Nasal Cannula 2 08/26/24 12:00 08/26/24 13:59 08/26/24 12:00 08/26/24 12:00 08/26/24 12:00 08/26/24 08:00 08/26/24 08:00 Narrative Exam General Appearance: Alert & Oriented X3, appears thin and with decreased oral intake in no acute distress. Spends most of the day sleeping. HEENT: Skull symmetrical and atraumatic. Conjunctivae pale pink and moist. Pupils equal, round, reactive to light and accommodation (PERRL). External ear without lesion or discharge. Straight, nares patient, dry mucous, no discharge. Cardio: Normal Rate and Rhythm with S1 and S2 heart sounds. No murmurs or extra heart sounds auscultated. No bruits on carotid auscultation. No peripheral edema or cyanosis. Lungs: Symmetric with good expansion. Chest and back non-tender. Breath sounds vesicular without crackles, wheezing or rhonchi Abdomen: Non-tender, Non-distended, Normal Reactive Bowel Sounds. PEG tube in place. Neuro: Alert, cooperative, oriented to person, place, and time. Speech clear. CN grossly intact. Upper motor strength 5/5 and Lower motor strength 5/5. Sensation intact. Objective Labs 08/26/24 04:39 08/26/24 04:39 Labs: Laboratory Results - last 24 hr 08/26/24 04:39 WBC 3.7 D RBC 2.11 L Hgb 7.6 L Hct 23.6 L MCV 112 H MCH 36.0 H MCHC 32.2 RDW Std Deviation 121.0 H Plt Count 106 L D Neut % (Auto) 59 Lymph % (Auto) 32 [place] % (Auto) 7 Eos % (Auto) 2 Baso % (Auto) 0 Neut # (Auto) 2.2 Lymph # (Auto) 1.2 [place] # (Auto) 0.3 Eos # (Auto) 0.1 Baso # (Auto) 0.0 Immature Gran # (Auto) 0.02 H Absolute Nucleated RBC 0.17 H Immature Gran % 1 H Neutrophils % (Manual) 65 Monocytes % (Manual) 7 Eosinophils % (Manual) 2 Metamyelocytes % 1 H Myelocytes % 1 H Nucleated RBC % 5 H Band Neutrophils 4 Lymphocytes (Manual) 20 Toxic Vacuolation 1+ Acanthocytes (Spur) 2+ A Sodium 135 L Potassium 4.1 Chloride 103 Carbon Dioxide 26.7 Anion Gap 5 L BUN 25 H Creatinine 0.8 Estim Creat Clear Calc 33.8 L eGFR > 60 BUN/Creatinine Ratio 31 H Glucose 102 Calculated Osmolality 274 L Calcium 7.3 L Corrected Calcium 9.1 Total Bilirubin 0.5 AST 42 H ALT 9 L Alkaline Phosphatase 58 Total Protein 4.8 L Albumin 1.8 L Globulin 3.0 Albumin/Globulin Ratio 0.6 L Quality Measures Quality Measures VTE prophylaxis Advance care planning discussed with:: other Assessment & Plan Assessment Current Active Medications: Generic Name Dose Route Start Last Admin Trade Name Freq PRN Reason Stop Dose Admin Acetaminophen 650 mg 08/11/24 02:10 08/25/24 02:59 Acetaminophen 325 Mg Tablet PO 09/10/24 02:09 650 mg Q6H PRN Administration PAIN OR FEVER > 101 Artificial Tears 0 drop 08/12/24 15:04 08/13/24 09:43 Artificial Tears 225 Drop/15 Ml Btl BOTH EYES 09/11/24 15:03 2 drops PRN PRN Administration TO KEEP EYES MOIST Artificial Tears 0 drop 08/12/24 22:00 08/26/24 05:22 Artificial Tears 225 Drop/15 Ml Btl BOTH EYES 09/11/24 21:59 2 drops TID LAKESHA Administration Sunitib Malate 25 Mg 0 ea 08/12/24 09:00 08/26/24 09:46 Capsules PO 09/11/24 08:59 1 capsule DAILY LAKESHA Administration Mirtazapine 7.5 mg 08/12/24 21:00 08/25/24 21:33 Mirtazapine 15 Mg Tablet PO 09/11/24 20:59 7.5 mg HS LAKESHA Administration Multivitamins 1 tab 08/18/24 15:30 08/26/24 09:46 Multivitamins Tablet PO 09/17/24 15:29 1 tab QDAY LAKESHA Administration Ondansetron HCl 4 mg 08/11/24 02:10 Ondansetron Inj 2 Mg/Ml Inj 2 Ml IV 09/10/24 02:09 Q6H PRN NAUSEA OR VOMITING Protocol Pantoprazole Sodium 40 mg 08/11/24 09:00 08/26/24 09:46 Pantoprazole Inj 40 Mg Vial IVP 09/10/24 08:59 40 mg Q12HR LAKESHA Administration Thiamine HCl 100 mg 08/18/24 15:30 08/26/24 09:46 Thiamine 100 Mg Tablet PO 09/17/24 15:29 100 mg QDAY LAKESHA Administration Plan Patient is a Tagalog-speaking 88-year-old female with a past medical history of gastric cancer status post partial gastrectomy and currently on sunitinib malate chemotherapy (previously on nilotinib) who was admitted on 08/11/2024 who was admitted for lower GI bleed, likely secondary to hemorrhoids found on colonoscopy and s/p PEG tube, pending home health. #Symptomatic Macrocytic Anemia #GI bleed Etiology: Given colonoscopy findings on 08/17/2022 for hemorrhoids and diverticulosis with complicating history of gastric cancer, lower GI bleed cannot be ruled out. FOBT positive. Upper GI bleed less likely given negative EGD. Lower GI bleed likely from hemorrhoids and anemia from chemotherapy (Sunitinib). Diagnostics: EGD (08/13/2024) esophagitis: Colonoscopy (08/16/2024): Hemorrhoids, diverticulosis, limited colonoscopy-stopped at the mid transverse colon as patient was not tolerating procedure with elevated heart rate. Diagnostics: CBC (08/23/2024): WBC 2.1, Hgb 8.4, hct 25.4, MCV 105-->CBC (08/26/2024)WBC 3.7, Hgb 7.6, Hct 23.6 Plan: -All labs D/C d -Transfuse if Hgb < 7.0. - Dysphagia 2 diet - Refeeding via PEG tube started, currently at goal of 45cc/hr and 25 cc FWF. - Feeding instructions per dietitian recommendations: vital 1.2 at 20 ml/hr via PEG tube by pump- will consider increasing after 8 hours - Dietitian recommendations: Thiamine, multivitamins - Monitor daily labs for potassium, phosphorus, magnesium ? Pantoprazole 40 mg IV twice daily. - GI consulted, Dr. Ledesma, appreciate recommendations. - Outpatient air contrast barium enema when patient is more stable -Pending home health, likely tomorrow. #Failure to thrive #Cachexia Given past medical history of gastric cancer status post gastric ectomy, likely failure to thrive secondary to cancer and chemo medication. Patient is now status post PEG tube placement 08/15/2024. Given patinet's poor oral intake, decreased albumin, and decreased mobility, edema likely secondary to third spacing. Albumin 12.5 g given. PT Consulted for further recommendations. Diagnostics: -Total protein (08/23/2024): Total Protein 4.6 and Albumin 1.7-->(08/26/2024) Albumin 1.8 (L) -BMI 17.1 Plan: -PEG tube feeding began -08/18/24 -Feeding instructions via tube - vital 1.2 at 45 ml/hr via PEG tube -Albumin 12.5 grams X1 -PT referral ?Ensure with every meal. -Consult dietitian. -Resumed home mirtazapine 7.5mg. #Goals of Care Goals of care discussed with family including code status. Currently want patient to be full code. On 08/25/2024, Goals of care once again discussed with patient and patient's family at bedside. Poor prognosis given PEG tube and decreased oral intake. -08/26/2024 Again spoke with family about patient's poor prognosis and answered all concerns about possible discharge with home health. #History of gastric cancer. #Pancytopenia. #Leukopenia. #Thrombocytopenia. Per son, patient currently takes sunitinib malate and previously on nilotinib (Tasigna). Diagnostics: CBC (08/24/2024)WBC 3.1, Hgb 8.2, Hct 25.0, Platelets 80--> 08/26/2024 WBC 3.7, Hgb 7.6, Hct 23.6, MCV 108 Plan: -Resume home meds -F/U with oncologist within 1-2 weeks from discharge -Neutropenic Precautions #Hypokalemia- resolved Plan: - will continue to monitor #Atrial fibrillation, new onset - resolved No history of atrial fibrillation, [id number] 3. Will defer anticoagulation given GI bleed. #Elevated troponins- resolved. #NSTEMI type II, demand ischemia. Initial troponin 0.046 -> 0.049, likely due to chronic anemia. Plan No acute intervention Health Maintenance: Disp: Pt is currently admitted to floors for further management of GI bleeding, awaiting home health likely tomorrow. FEN: Dysphagia 2 Mechanical Altered DVT: compression device Code: Full Code - The patient's plan was discussed with attending Dr. Lockett and Dr. Day, senior resident. Kathy Youngblood MD PGY1 Internal Medicine Attending Provider Attestation/Addendum I have examined the patient, reviewed labs and imaging findings, discussed the case with the resident(s), and reviewed entered orders. I agree with the plan of care as outlined in this note, with these additional summaries/recommendations: Patient seen at bedside. No acute overnight events. Patient has no new symptoms to report today. Multiple code status discussions have been held with family and patient will remain full code at this time. Patient is status post EGD & colonoscopy for GI bleed. Continue pantoprazole 40 mg twice daily. Patient has failure to thrive, severe malnutrition and hypoalbuminemia. Family elected for PEG tube and status post PEG tube on 08/15/2024. At goal rate of tube feeds and free water flushes. Case management working on arranging home health for tube feed management. Hospital course complicated by new onset atrial fibrillation with RVR which has now resolved. Not a candidate for anticoagulation given GI bleeding and fall risk. Patient may follow-up outpatient for history of gastric cancer. Severe pancytopenia present likely 2/2 to poor oral intake and chemotherapy which patient can follow-up outpatient. Pending home health. Dr. Lockett
--- NOTE | 2024-08-26 20:04 | PD.IMPROG ---
Documentation for date of: 08/26/24 Subjective Subjective Interval history: Tolerating enteral hyperalimentation at 45 cc/h with no gastric residue issues Exam Vital Signs Temp Pulse Resp BP Pulse Ox O2 Del Method O2 Flow Rate 97.4 F 114 H 16 114/70 92 L Room Air 2 08/26/24 16:00 08/26/24 17:19 08/26/24 16:00 08/26/24 16:00 08/26/24 16:00 08/26/24 16:00 08/26/24 08:00 Objective Labs 08/26/24 04:39 08/26/24 04:39 Labs: Laboratory Results - last 24 hr 08/26/24 04:39 WBC 3.7 D RBC 2.11 L Hgb 7.6 L Hct 23.6 L MCV 112 H MCH 36.0 H MCHC 32.2 RDW Std Deviation 121.0 H Plt Count 106 L D Neut % (Auto) 59 Lymph % (Auto) 32 [place] % (Auto) 7 Eos % (Auto) 2 Baso % (Auto) 0 Neut # (Auto) 2.2 Lymph # (Auto) 1.2 [place] # (Auto) 0.3 Eos # (Auto) 0.1 Baso # (Auto) 0.0 Immature Gran # (Auto) 0.02 H Absolute Nucleated RBC 0.17 H Immature Gran % 1 H Neutrophils % (Manual) 65 Monocytes % (Manual) 7 Eosinophils % (Manual) 2 Metamyelocytes % 1 H Myelocytes % 1 H Nucleated RBC % 5 H Band Neutrophils 4 Lymphocytes (Manual) 20 Toxic Vacuolation 1+ Acanthocytes (Spur) 2+ A Sodium 135 L Potassium 4.1 Chloride 103 Carbon Dioxide 26.7 Anion Gap 5 L BUN 25 H Creatinine 0.8 Estim Creat Clear Calc 33.8 L eGFR > 60 BUN/Creatinine Ratio 31 H Glucose 102 Calculated Osmolality 274 L Calcium 7.3 L Corrected Calcium 9.1 Total Bilirubin 0.5 AST 42 H ALT 9 L Alkaline Phosphatase 58 Total Protein 4.8 L Albumin 1.8 L Globulin 3.0 Albumin/Globulin Ratio 0.6 L Impressions Impression: # Failure to thrive # Enteral hyperalimentation through the PEG tube Continue current management Assessment & Plan A&P Narrative # 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 and episode of hematochezia Obvious cause of bleeding is gastric carcinoma however there could be additional source of bleeding from the lower GI tract Initial plan of care is to do an upper endoscopy to see if there is an active bleeding going on and if that is negative we will consider doing a fibrotic colonoscopy examination Informed consent obtained from the family and we will proceed with the procedure Other medical problems include the following # A-fib with RVR rate controlled # Elevated troponin # come back to normal # Cachexia with hypoproteinemia and hypoalbuminemia Will follow the patient Thank you very much for the opportunity to participate in the care of this patient Time Spent With Patient Time: Total time spent is greater than 50% in coordination of care (as documented) at patient's floor/unit and/or counseling patient:
[2024-08-26] MEDS: MIRTAZAPINE 15 MG TABLET 7.5 MG PO (20:49)
[2024-08-27] VITALS: BP 108/61; PULSE 110; PULSE 111; RESP 16; TEMP 37.1; O2SAT 93
[2024-08-27 04:00] VITALS: BP 93/64; PULSE 103; PULSE 107; RESP 17; TEMP 36.8; O2SAT 94
[2024-08-27] MEDS: Artificial Tears 225 DROP/15 ML BTL BOTH EYES (05:10)
[2024-08-27 06:00] VITALS: BMI 20.2
[2024-08-27 08:00] VITALS: BP 106/64; PULSE 95; RESP 18; TEMP 36.8; O2SAT 99
[2024-08-27] MEDS: SUNITINIB PO (08:04)
[2024-08-27] MEDS: THIAMINE 100 MG TABLET PO (08:04)
[2024-08-27] MEDS: PANTOPRAZOLE INJ 40 MG VIAL IVP (08:04)
[2024-08-27] MEDS: MULTIVITAMINS TABLET 1 TAB PO (08:04)
--- NOTE | 2024-08-27 10:48 | ESDS_ITS ---
<Statement entered by Parveen Hester MD - 08/28/24 12:26> I have discussed and was present for the essential components of the history, physical examination, diagnosis, and treatment plan with the resident. I agree with the patient's care as documented by the resident and amended herein by me. Parveen Hester MD. Planned Discharge Date 08/27/24 DS: Providers Provider Date of admission: 08/11/24 02:10 Primary care physician: Physician No Primary/Family Admitting Provider: Gerardo Meza MD Attending Provider on Admission: Jerry Lockett MD Consults: 08/11/24 02:21 Consult to Gastroenterology Stat Comment: Bright red blood in stool Consulting Provider: Kimo Ledesma 08/11/24 02:22 Referral Speech Therapy Routine Comment: Swallow screen Instructions: Patient on liquid diet, please evaluate for any difficulty swallowing. 08/11/24 02:23 Referral Registered Dietitian Routine Comment: Instructions: Per son, diet consists of mostly ensure. Decreased appetite. 08/12/24 09:54 Referral Registered Dietitian Routine Comment: 08/15/24 19:38 Referral Registered Dietitian Urgent Comment: 08/25/24 12:07 Referral Physical Therapy Routine Comment: Physician Instructions: Instructions: hx of gastric cancer on PEG tube feeding, has mostly been bed bound. Attending Provider on DC: Parveen Hester MD Discharging Provider: Parveen Hester MD DS: Diagnosis Problem List Completed Was Problem List Reviewed/Reconciled?: Yes Hospital Course Hospital Course Hospital course: This Patient is a Tagalog-speaking 88-year-old female with a past medical history of gastric cancer status post partial gastrectomy and currently on sunitinib malate chemotherapy (previously on nilotinib) who was admitted on 08/11/2024 who was admitted for lower GI bleed, likely secondary to hemorrhoids found on colonoscopy and esophagitis on EGD and s/p PEG tube placed on 08/18/2024. GI specialist recommended to continue PEG tube feedings as tolerated. Before discharge, patient's CODE STATUS was brought up to the family and it was discussed that given the fact the patient is frail and weak for bearing with chest compressions if she would code they can always reconsider for making her DNR/DNI for not going to the painful process only if it would have to happen however patient's family wanted to proceed with full code and there wish es were respected. Tube feedings were adjusted by dietitian during hospital course. Home medications were reconciled. Patient did develop new onset A-fib however was not given Eliquis due to GI bleed risk. Patient has scheduled appointment with oncologist as she is currently on chemotherapy. She was seen and examined at the bedside. She was medically stable to be discharged. Patient was discharged to home with home health on PEG tube feedings. # Problem list: #Symptomatic Macrocytic Anemia #GI bleed #Failure to thrive #Cachexia #Goals of Care #History of gastric cancer. #Pancytopenia. #Leukopenia. #Thrombocytopenia #Hypokalemia- resolved #Atrial fibrillation, new onset - resolved #Elevated troponins- resolved. #NSTEMI type II, demand ischemia Discharge instructions: Continue home medications as prescribed. Continue PEG tube feeding as scheduled with water flushes(Home TF: Vital AF 1.2 240mL 5x/day via G-tube, by syringe to provide: total volume 1200 mL, 1420kcal, 89g PRO, 100 mL water flush after feeds plus medication flush) Follow up with PCP and oncology within 2 weeks. Followup with employment consultant for possible air contrast barium enema study. Patient was seen and discussed with attending physician, Dr. Kacie Day MD, PGY 2 Time Spent with Patient Time attestation: Total time spent providing and/or coordinating discharge services: Exam Vital Signs Temp Pulse Resp BP Pulse Ox O2 Del Method O2 Flow Rate 98.2 F 95 18 106/64 99 Nasal Cannula 2 08/27/24 08:00 08/27/24 08:00 08/27/24 08:00 08/27/24 08:00 08/27/24 08:00 08/27/24 08:00 08/27/24 08:00 Narrative Exam GENERAL: A&Ox3 . Awake, Not in acute distress, elderly, thin appearing NEURO: no focal neurological deficits HEENT: Atraumatic, Normocephalic. mucous membranes moist. Eyes open, symmetrical, & clear HEART: Normal Heart Sounds LUNGS: Clear to auscultation with no wheezing or crackles. ABDOMEN: soft, non-distended, non-tender, no guarding or rebound tenderness, PEG tube present SKIN: No Rash or ecchymoses EXTREMITIES: No edema, tenderness, able to move all 4 extremities, pedal pulses palpated Discharge Plan Plan Patient Disposition: Home w/HOME HEALTH Patient condition on transfer: Stable Care Plan Goals: Continue home medications as prescribed. Continue PEG tube feeding as scheduled with water flushes(Home TF: Vital AF 1.2 240mL 5x/day via G-tube, by syringe to provide: total volume 1200 mL, 1420kcal, 89g PRO, 100 mL water flush after feeds plus medication flush) Follow up with PCP and oncology within 2 weeks. Followup with employment consultant for possible air contrast barium enema study. Prescriptions/Referrals Prescriptions/Med Rec: Continued mirtazapine 7.5 mg tablet 7.5 mg PO QPM Patient Comments: TAKE 1 TABLET BY MOUTH AT BEDTIME. sunitinib malate 25 mg capsule 25 mg PO DAILY Referrals: Gopal Dawson MD [Physician] - Kimo Ledesma MD [Physician] - Patient/Caregiver Discharge Instructions Other Discharge Activity Instructions:: Continue home medications as prescribed. Continue PEG tube feeding as scheduled. Follow up with PCP and oncology within 2 weeks. Other Discharge Diet Instructions: Home TF: Vital AF 1.2 240mL 5x/day via G- tube, by syringe to provide: total volume 1200 mL, 1420kcal, 89g PRO, 100 mL water flush after feeds plus medication flush. Education Materials: Understanding PEG Tube Feeding Print Language: Solomon Islander Discharge Order Discharge Orders: Discharge (Routine); Ordered 08/27/24 Ordered By: Joaquin Zambrano Quality Discharge Quality Measures VTE prophylaxis
--- NOTE | 2024-08-27 11:25 | PC.CM ---
sent dc summary, dc orders, PT notes to [facility] and dc summary, dc orders to [facility]. Delivery of feeding is today. Start of care date with [facility] is tomorrow.
== END 2024-08-27 11:00 | disposition home health service (06) | DRG 368 ==
LOC: SERX 20:55 → SERHOLD 08-11 02:31 → S2NX 08-11 18:34 → S3NX 08-18 19:46
PROVIDERS: Physician Assistant; Specialist; Student in an Organized Health Care Education/Training Program; Admitting Provider Internal Medicine; Emergency Provider Emergency Medicine; Visit Provider Student in an Organized Health Care Education/Training Program
PROC: 0DB68ZX Excision of Stomach, Via Natural or Artificial Opening Endoscopic, Diagnostic (ICD-10-PCS; CPT 43239; principal; 2024-08-13 19:00)
PROC: 0DH63UZ Insertion of Feeding Device into Stomach, Percutaneous Approach (ICD-10-PCS; CPT 43246; principal; 2024-08-15 19:00)
PROC: 0DJD8ZZ Inspection of Lower Intestinal Tract, Via Natural or Artificial Opening Endoscopic (ICD-10-PCS; CPT 45378; principal; 2024-08-17 19:30)
DX: K21.01 Gastro-esophageal reflux disease with esophagitis, with bleeding (principal); E43 Unspecified severe protein-calorie malnutrition; I21.A1 Myocardial infarction type 2; D61.818 Other pancytopenia; I48.20 Chronic atrial fibrillation, unspecified; Z68.1 Body mass index [BMI] 19.9 or less, adult; C16.9 Malignant neoplasm of stomach, unspecified; K64.9 Unspecified hemorrhoids; K57.30 Diverticulosis of large intestine without perforation or abscess without bleeding; K29.60 Other gastritis without bleeding; E77.8 Other disorders of glycoprotein metabolism; E88.09 Other disorders of plasma-protein metabolism, not elsewhere classified; E87.6 Hypokalemia; R62.7 Adult failure to thrive; Z90.3 Acquired absence of stomach [part of]
CPT/HCPCS: 36415; 71046; 80048; 80053; 80307; 81001; 82270; 83735; 83880; 84100; 84484; 84550; 85014; 85018; 85025; 85610; 85730; 87400; 87811; 92610; 93005; 93225; 97162; 99291; A4649; J0689; J0690; J1200; J1940; J2250; J2470; J3010; J3475; J3480; J7030; J7042; P9047; A9270

== ENCOUNTER → 2024-09-03 | Outpatient (CLI) | payer MEDICARE, MEDICAID, SELFPAY | END | disposition home or self-care (01) | LOC: SLDO 14:58 | PROVIDERS: PCP Family Medicine; Referring Provider Family Medicine; Visit Provider Family Medicine | DX: K94.22 Gastrostomy infection (principal) | CPT/HCPCS: 87070; 87077; 87186; 87205 ==

== ENCOUNTER 2024-10-05 16:20 | Inpatient (IN) | payer MEDICARE, MEDICAID, SELFPAY ==
[2024-10-05] VITALS (9 sets, daily range): BP systolic 100–134; BP diastolic 69–83; PULSE 81–127; RESP 13–31; TEMP 37.3; O2SAT 93–96
--- NOTE | 2024-10-05 16:40 | PD.EDRME ---
Rapid Medical Screening Exam RME Arrival date/time: 10/05/24 16:20 88-year-old female with a history of thrombocytopenia reports with CBC recheck Chief Complaint: Recheck/Abnormal Lab/Rx Time Seen by Provider: 10/05/24 16:34 Vital signs: Vital Signs Temperature 99.1 F 10/05/24 16:38 Pulse Rate 106 H 10/05/24 16:38 Respiratory Rate 20 10/05/24 16:38 Blood Pressure 134/83 H 10/05/24 16:38 Pulse Oximetry (%) 95 10/05/24 16:38 Oxygen Delivery Method Room Air 10/05/24 16:38
[2024-10-05 17:13] LABS: Basophils % (Auto) 0 % (0-2.5); Eosinophils % (Auto) 0 % (0-10); Immature Granulocytes % (Auto) 1 % (0-0); Immature Granulocytes Auto 0.03 Thou/mm3 (0.00-0.00); Lymphocytes # (Auto) 0.6 Thou/mm3 (1.0-4.8); Lymphocytes % (Auto) 20 % (10-50); Mean Corpuscular HGB Conc 32.2 g/dl (31.0-37.0); Mean Corpuscular Hemoglobin 37.8 pg (25.0-35.0); Mean Corpuscular Volume 117 fL (80-100); Monocytes # (Auto) 0.3 Thou/mm3 (0.0-0.8); Monocytes % (Auto) 10 % (0-12); Neutrophils # (Auto) 1.9 Thou/mm3 (1.8-7.7); Neutrophils % (Auto) 69 % (37-80); Nucleated Red Blood Cell # 1.02 Thou/mm3 (0.00-0.00); Nucleated Red Blood Cell % 37 /100 WBC (0); RDW Standard Deviation 69.2 fL (36.4-46.3); Red Blood Count 1.96 Miln/mm3 (4.00-5.20)
[2024-10-05 17:16] LABS: Hemoglobin 7.4 g/dL (12.0-16.0); Platelet Count 74 Thou/mm3 (140-440); White Blood Count 2.7 Thou/mm3 (3.6-11.0)
[2024-10-05 17:28] LABS: Slide Review Platelets confirmed
--- NOTE | 2024-10-05 19:12 | EKG_ITS ---
[facility] Test Date: 2024-10-05 Pat Name: JACOBO MCNEAL Department: Room: - Gender: Female Accountant Assistant: : [id number] Requested By: Inocente Nicholas Order Number: [id number] Reading MD: Inocente Nicholas Measurements Intervals Viola Rate: 116 P: PA: QRS: 40 QRSD: 77 T: 73 QT: 316 QTc: 439 Interpretive Statements ATRIAL FIBRILLATION WITH RAPID VENTRICULAR RESPONSE WITH ABERRANT CONDUCTION OR VENTRICULAR PREMATURE COMPLEXES ABNORMAL RHYTHM ECG Compared to ECG 08/25/2024 10:41:31 Ventricular premature complex(es) now present Aberrant conduction of supraventricular beat(s) now present Sinus tachycardia no longer present T-wave abnormality no longer present Possible ischemia no longer present /store/S0/[id number].pdf
--- NOTE | 2024-10-05 19:12 | XR_ITS ---
Examination: AP chest single view Technique: AP portable sitting chest single view Exam date and time: October 05, 2024 1926 hrs. Comparison August 10, 2024 Indications: Tachycardia shortness of breath today. Findings: Prominent bibasilar pneumonia Mild associated heart failure with mild enlargement cardiac contour and prominent vascular congestion Moderate osteopenia Impression: Prominent bibasilar pneumonia Mild associated heart failure
--- NOTE | 2024-10-05 19:29 | PD.EDADULT ---
ED General RME/HPI General Chief complaint: Recheck/Abnormal Lab/Rx Stated complaint: HGB 6.5 FROM [facility]; NEEDS TRANSFUSION Time Seen by Provider: 10/05/24 16:34 Arrival date/time: 10/05/24 16:20 CC: Patient presents to the ER for recheck per her oncologist request for CBC also to check if there is fluid around her lungs. Upon assessment of family members answering most the questions patient recently seen for stomach cancer and is in chemotherapy. Patient is awake speaking intact bowel up to family members. RME / HPI RME / HPI narrative: 10/05/24 16:20 88-year-old female with a history of thrombocytopenia reports with CBC recheck Related Data Home Medications ?Medication ?Instructions ?Recorded ?Confirmed mirtazapine 7.5 mg tablet 7.5 mg PO QPM 08/11/24 08/11/24 sunitinib malate 25 mg capsule 25 mg PO DAILY 08/11/24 08/11/24 Allergies Allergy/AdvReac Type Severity Reaction Status Date / Time No Known Allergies Allergy Verified 08/10/24 18:56 Review of Systems Review of Systems Narrative Review of Systems: GEN: No fever, no chills, no weight loss EYES: No discharge, no visual changes, no pain HEENT: No ear pain, no congestion, no sore throat PULM: No shortness of breath, no cough, no congestion CV: No chest pain, no dyspnea on exertion, no palpitations GI: No nausea, no vomiting, no diarrhea, no pain, no constipation : No frequency, no urgency, no dysuria MUSC/SKEL: No joint pain, no back pain SKIN: No rash PSYCH: No hallucinations, no depression HEME/LYMPH: No easy bleeding or bruising tendencies NEURO: No weakness, no headache Past Medical History Past Medical History NEUROLOGIC: Negative Neurological Disorders, Cerebrovascular Accident, Transient Ischemic Attacks (TIA), Dementia, Alzheimer's Disease, Parkinson's Disease, Brain Tumor, Meningitis, Seizures, Epilepsy, Multiple Sclerosis, Cerebral Palsy, Amyotrophic Lateral Sclerosis (ALS/Samaria Gehrig's), Guillain-[place] Syndrome, Spina Bifida, Paralysis, Peripheral Neuropathy, Alfaro's Palsy, Subdural Hematoma, Migraine, Head Trauma, Spinal Cord Injury or Traumatic Brain Injury CARDIAC: Negative Cardiac Disorders, Myocardial Infarction, Cardiac Arrhythmia, Atrial Fibrillation, Angina, Heart Murmur, Coronary Artery Disease, Atherosclerotic Heart Disease, Peripheral Vascular Disease, Hypercholesterolemia, Aneurysm, Congestive Heart Failure, Congenital Heart Disease, Valvular Heart Disease, Rheumatic Fever, Cardiomyopathy, Edema, Pericarditis, Cellulitis, Deep Vein Thrombosis, Hypertension, Hypotension or Varicose Veins RESPIRATORY: Negative Chronic Obstructive Pulmonary Disease (COPD), Asthma, Bronchitis, Emphysema, Pneumonia, Pulmonary Fibrosis, Cystic Fibrosis, Tuberculosis, Pulmonary Embolism, Pulmonary Edema or Sleep Apnea GASTROINTESTINAL: Positive Gastrointestinal Bleed; Negative Gastrointestinal Disorders, Hepatitis, Cirrhosis, Pancreatitis, Celiac Disease, Gall Bladder Disease, Esophageal Varices, Raya's Esophagus, Colitis, Ulcerative Colitis, Diverticulitis, Diverticulosis, Ulcer, Colorectal Cancer, Irritable Bowel, Crohn's Disease, Obstructive Bowel, Hiatal Hernia, Hemorrhoids, Gastroesophageal Reflux Disease or Obesity GENITOURINARY: Negative Genitourinary Disorders, Renal Disease, Kidney Stones, Polycystic Kidney Disease, Neurogenic Bladder, Inguinal Hernia, Dialysis, Prostate Cancer or Benign Prostatic Hyperplasia REPRODUCTIVE: Negative Breast Cancer, Endometriosis, Genital Herpes, Gonorrhea, Pelvic Inflammatory Disease, Previous Pregnancies, Syphilis, Testicular Cancer or Uterine Prolapse MUSCULOSKELETAL: Negative Musculoskeletal Disorders, Muscular Dystrophy, Myasthenia Gravis, Marfan's Syndrome, Bone Cancer, Arthritis, Rheumatoid Arthritis, Osteoporosis, Degenerative Disk Disease, Gout, Scoliosis, Carpal Tunnel Syndrome, Fibromyalgia, Fractures, Degenerative Joint Disease, Osteomyelitis or Poliovirus ENT: Negative Cataracts, Glaucoma, Blind, Retinal Detachment, Macular Degeneration, Ear Infection, Deafness, Head Trauma or Eye Prosthesis ENDOCRINE: Negative Endocrine Disorders, Diabetes Mellitus Type 1, Diabetes Mellitus Type 2, Hypoglycemia, Rosalia's Syndrome, Gonsalo's Disease, Hyperthyroidism, Hypothyroidism, Parathyroid Disease, Pituitary Disease, Systemic Lupus Erythematosus, Syndrome of Inappropriate Antidiuretic Hormone (SIADH), Adrenal Disease or Graves' Disease HEMATOLOGIC: Positive Blood Disorders and Anemia; Negative Leukemia, Hemophilia, Thalassemia, Sickle Cell Disease or Clotting Problems PSYCHO/SOCIAL: Negative Psychiatric Problems, Schizophrenia, Recreational Drug Use, Bipolar Disorder, Depression, Anxiety, Behavior Problems, Self-Mutilation, Attention Deficit Disorder, Attention Deficit Hyperactivity Disorder, Depression, Post Traumatic Stress Disorder or Eating Disorder OTHER HISTORY: Positive Chemotherapy and Cancer; Negative Hospitalization, Autoimmune Disease, Down Syndrome, Autism, Developmental Delay, Shingles, Falls, Blood Transfusions, Blood Transfusion Reaction, Anesthesia Reactions, Organ Transplant, Radiation Therapy, Hyperbaric Therapy, MRSA, VRSA, Vancomycin-Resistant Enterococci, Human Immunodeficiency Virus (HIV), Chicken Pox, Measles, Mumps, Rubella (Ukrainian Measles), Pertussis, Clostridium Difficile, Breast Cancer, Cervical Cancer, Colorectal Cancer, Lung Cancer, Ovarian Cancer, Prostate Cancer or Testicular Cancer Family History FAMILY HISTORY: Negative Family Psychiatric Problems, Family Respiratory Disorders, Family Cardiac Disorders, Family Gastrointestinal Problems, Family Cancer, Family Surgery or Family Anesthesia Reaction Surgical History SURGICAL: Positive Abdominal Surgery; Negative Cardiac Surgery, Open Heart Surgery, Coronary Artery Bypass Graft, Valve Replacement, Vascular Surgery, Coronary Stent, Cardiac Catheterization, Pacemaker, Angiogram, Auto Implanted Cardiovert Defib, Carotid Endarterectomy, Endocrine Surgery, Thyroidectomy, Ear Surgery, Tympanostomy Tube, Eye Surgery, Nose Surgery, Oral Surgery, Tonsillectomy, Adenoidectomy, Cochlear Implant, Corneal Transplant, Throat Surgery, Tracheostomy, Gastric Bypass Surgery, Gastrostomy, Bowel Surgery, Nephrectomy, Transurethral Resection, Joint Replacement, Amputation, Open Reduction Internal Fixation, Arthroscopy, Neurologic Surgery, Brain Shunt, Mastectomy, Lumpectomy, Hysterectomy, Tubal Ligation, Section, Vasectomy or Organ Transplant Social History SMOKING STATUS: Never smoker ED Exam Narrative Physical exam: [General: Frail, appears not in any acute distress Head normocephalic HEENT: Within acceptable limits Neck is supple nontender Chest equal chest rise nontender to palpation Respiratory: Clear to auscultation no wheezes crackles or rubs CV: Rate rhythm is irregular, accelerated, no murmurs rubs or clicks Abdomen is soft nontender no masses positive bowel sounds all 4 quadrants Back: No CVA tenderness no spinous process tenderness from cervical spine thoracic and lumbar spine Skin: Intact no petechiae rash induration ulceration or crepitus Extremities: Moving all extremity against resistance cap refill less than 2 seconds neurosensory intact Neuro: Awake alert oriented x1, self, Glascow coma 15 no focal deficits] Course Course Course Narrative: Reassessment of this patient at 2025, the patient's heart rate has been variable between 110 and 130. At this time is 133 patient has a blood pressure of 130/70, patient will be given 10 mg of diltiazem IV to see if we can decrease the RVR portion. Quality Measures none Orders Category Date Time Status EKG (ED ONLY) *Do not use* NOW Care 10/05/24 19:12 Completed Saline [Insert IV] NOW Care 10/05/24 19:14 Active EKG (ED Only) Stat Exams 10/05/24 19:12 Draft XR chest 1V Stat Exams 10/05/24 19:12 Completed B-Type Natriuretic Peptide Stat Lab 10/05/24 19:50 Completed CBC Stat Lab 10/05/24 17:03 Completed Comprehensive Metabolic Panel Stat Lab 10/05/24 19:50 Completed Drug Screen,Urine Stat Lab 10/05/24 19:12 Ordered LDH (Lactate Dehydrogenase) Stat Lab 10/05/24 19:50 Completed Mag [Magnesium] Stat Lab 10/05/24 21:13 Completed Magnesium Stat Lab 10/05/24 19:50 Completed Partial Thromboplastin Time Stat Lab 10/05/24 19:50 Completed Procalcitonin Stat Lab 10/05/24 21:13 Completed Prothrombin Time with INR Stat Lab 10/05/24 19:50 Completed Troponin I Stat Lab 10/05/24 19:50 Completed Urinalysis Stat Lab 10/05/24 19:12 Ordered Diltiazem Inj [Cardizem Inj] Med 10/05/24 20:25 Discontinued 10 mg IV X1 ONE Sodium Chloride 0.9% 500 ml [Ns] 500 ml Med 10/05/24 19:14 Discontinued IV 999 mls/hr Vital Signs Vital signs: Vital Signs Temperature 99.1 F 10/05/24 16:38 Pulse Rate 106 H 10/05/24 16:38 Respiratory Rate 20 10/05/24 16:38 Blood Pressure 134/83 H 10/05/24 16:38 Pulse Oximetry (%) 95 10/05/24 16:38 Oxygen Delivery Method Room Air 10/05/24 16:38 [facility] Patient data External records reviewed:: [facility] previous records Clinical information provided by:: patient and family Social determinants that could affect healthcare access:: none Patient has the following chronic illnesses:: Cancer on treatment and [facility]. How is presenting disease/condition affected by chronic disease/condition?: exacerbated by Evaluation data The following diagnostics were reviewed and interpreted by me:: lab results, radiology exam(s) and EKG tracing(s) Lab and/or radiology exams considered but not ordered:: EKG performed at 1946 shows ventricular rate of 116 QRS of 77 QTc of 385 is A-fib with RVR. CBC shows pancytopenia with a WBC of 2.7 H&H of 7.4 and 23.0 with platelets of 74,000, when compared to old laboratory results for the past 6 months this is consistent with her baseline. Coags within acceptable limits CMP shows sodium 142 potassium of 4.6 chloride of 107 CO2 of 23.2 BUN of 30 creatinine of 1.1 and a glucose of 95. LDH at 511 Troponin of 0.520 reviewed the patient's previous troponin show has not been this high before. BNP of 1420. Interpretation Summary: Given the patient's fragile position, review of the previous admission shows the patient is still a full code. Am concerned that we may need to trend her troponins secondary to the A-fib RVR. Patient was given the small dose of diltiazem which decreased the heart rate from the 130s to the 100s. Patient's case then discussed with Dr. Kong who agrees to accept the patient for admission. Medications Medications considered but not ordered:: None Medication administrations:: Medication Administration History Acetaminophen (Acetaminophen 325 Mg Tablet) 650 mg PO Q6H PRN PRN Reason: Fever >101.5 Stop: 11/04/24 21:23 Diltiazem HCl (Diltiazem 30 Mg Tablet) 30 mg PO TID [facility] Stop: 11/04/24 21:59 Last Admin: 10/05/24 22:06 Dose: 30 mg Documented By: LAURE Furosemide (Furosemide Inj 10 Mg/Ml 4ml Vial) 40 mg IVP QDAY [facility] Stop: 11/05/24 08:59 Azithromycin 500 mg/ Sodium (Chloride) 250 mls @ 250 mls/hr IV DAILY@2100 [facility] Stop: 10/12/24 21:25 Last Admin: 10/05/24 22:07 Dose: 250 mls/hr Documented By: LAURE Ceftriaxone Sodium/Dextrose (Rocephin/D5w 1gm Iv Premix) 50 mls @ 100 mls/hr IV DAILY@2100 [facility] Stop: 10/12/24 20:59 Last Infusion: 10/05/24 22:37 Dose: Infused Documented By: Admin: 10/05/24 22:06 Dose: 100 mls/hr Documented By: LAURE Pantoprazole Sodium (Pantoprazole Inj 40 Mg Vial) 40 mg IV QDAY [facility] Stop: 11/05/24 08:59 Discontinued Medications Diltiazem HCl (Diltiazem Inj 5 Mg/Ml Vial 5 Ml) 10 mg IV X1 ONE Stop: 10/05/24 20:26 Last Admin: 10/05/24 20:46 Dose: 10 mg Documented By: LAURE Sodium Chloride (Ns) 500 mls @ 999 mls/hr IV .Q31M ONE Stop: 10/05/24 19:44 Last Infusion: 10/05/24 20:47 Dose: Infused Documented By: Admin: 10/05/24 19:54 Dose: 999 mls/hr Documented By: LAURE Sodium Chloride (Sodium Chloride Rt 10% 15 Ml Nebu) 5 ml INH X1 ONE Stop: 10/05/24 22:20 None Consultations Consultation(s) initiated? (list below): No Diagnosis Differential Diagnosis ED Complaint MDM: ACS FL pneumonia A-fib RVR Most likely diagnosis given after review of the tests above:: Elevated troponin A-fib with RVR Admission Indicated Admission indicated?: indicated Explain why admission is indicated or not indicated:: Further medical management Admission Request Was there a request for admission?: No Disposition Plan Disposition Plan: Admit Medical Decision Making Differential Diagnosis Differential Diagnosis: ACS [place] pneumonia A-fib RVR Lab Data 10/05/24 17:03 10/05/24 19:50 Labs: Lab Results 10/05/24 10/05/24 10/05/24 Range/Units 17:03 19:50 21:13 WBC 2.7 L (3.6-11.0) Thou/mm3 RBC 1.96 L* (4.00-5.20) Miln/mm3 Hgb 7.4 L (12.0-16.0) g/dL Hct 23.0 L (36.0-46.0) % MCV 117 H (80-100) fL MCH 37.8 H (25.0-35.0) pg MCHC 32.2 (31.0-37.0) g/dl RDW Std Deviation 69.2 H (36.4-46.3) fL Plt Count 74 L D (140-440) Thou/mm3 Neut % (Auto) 69 (37-80) % Lymph % (Auto) 20 (10-50) % [place] % (Auto) 10 (0-12) % Eos % (Auto) 0 (0-10) % Baso % (Auto) 0 (0-2.5) % Neut # (Auto) 1.9 (1.8-7.7) Thou/mm3 Lymph # (Auto) 0.6 L (1.0-4.8) Thou/mm3 [place] # (Auto) 0.3 (0.0-0.8) Thou/mm3 Eos # (Auto) 0.0 (0.0-0.5) Thou/mm3 Baso # (Auto) 0.0 (0.0-0.2) Thou/mm3 Immature Gran # (Auto) 0.03 H (0.00-0.00) Thou/mm3 Absolute Nucleated RBC 1.02 H (0.00-0.00) Thou/mm3 Immature Gran % 1 H (0-0) % Nucleated RBC % 37 H (0) /100 WBC PT 14.3 H (9.0-12.2) Seconds INR 1.3 (0.9-1.3) APTT 31.6 (22.0-36.0) Seconds Sodium 142 (136-145) mMol/L Potassium 4.6 (3.4-5.1) mMol/L Chloride 107 (98-107) mMol/L Carbon Dioxide 23.2 (20.0-31.0) mMol/L Anion Gap 12 (7-16) BUN 30 H (9-23) mg/dL Creatinine 1.1 (0.6-1.3) mg/dL Estim Creat Clear Calc Not Performed. eGFR 49 L (60 - ) See Note BUN/Creatinine Ratio 27 H (12-20) Ratio Glucose 95 (74-106) mg/dL Calculated Osmolality 289 (275-295) Calcium 8.2 L (8.3-10.6) mg/dL Corrected Calcium 9.4 (8.5-10.1) mg/dL Magnesium 2.2 2.2 (1.6-2.6) mg/dL Total Bilirubin 1.1 (0.3-1.2) mg/dL AST 90 H (0-34) U/L ALT 24 (10-49) U/L Alkaline Phosphatase 99 (46-116) U/L Lactate Dehydrogenase 511 H (120-246) U/L Troponin I 0.520 H* (0.0-0.045) ng/mL B-Natriuretic Peptide 1420 H* (0-100) pg/mL Total Protein 7.4 (5.7-8.2) gm/dL Albumin 2.5 L (3.4-4.8) gm/dL Globulin 4.9 H (2.3-3.5) gm/dL Albumin/Globulin Ratio 0.5 L (1.2-2.2) Procalcitonin 3.75 H (0.0-0.49) ng/ml Misc Test Result Platelets confirmed Discharge Plan Plan Patient Disposition: Other Care w/in Hosp ([facility]) Patient condition on transfer: Stable Problem List Clinical Impression: Elevated troponin, Atrial fibrillation with RVR PA/STEAM BOX TENDER Supervising Physician PA/STEAM BOX TENDER Supervising Physician: Inocente Elizalde ENP
[2024-10-05] MEDS: SODIUM CHLORIDE 0.9% 500 ML 500 ML 999 ML IV (19:54)
[2024-10-05 20:37] LABS: B-Type Natriuretic Peptide 1420 pg/mL (0-100)
[2024-10-05 20:41] LABS: Alanine Aminotransferase 24 U/L (10-49); Albumin, Serum 2.5 gm/dL (3.4-4.8); Albumin/Globulin Ratio 0.5 (1.2-2.2); Alkaline Phosphatase 99 U/L (46-116); Anion Gap 12 (7-16); Aspartate Amino Transferase 90 U/L (0-34); BUN/Creatinine Ratio 27 Ratio (12-20); Bilirubin,Total 1.1 mg/dL (0.3-1.2); Blood Urea Nitrogen 30 mg/dL (9-23); Calcium 8.2 mg/dL (8.3-10.6); Calcium (Corrected) 9.4 mg/dL (8.5-10.1); Carbon Dioxide 23.2 mMol/L (20.0-31.0); Chloride 107 mMol/L (98-107); Creatinine (Component) 1.1 mg/dL (0.6-1.3); Globulin 4.9 gm/dL (2.3-3.5); Glucose 95 mg/dL (74-106); LDH (Lactate Dehydrogenase) 511 U/L (120-246); Magnesium 2.2 mg/dL (1.6-2.6); Osmolality,Calculated 289 (275-295); Potassium 4.6 mMol/L (3.4-5.1); Sodium 142 mMol/L (136-145); Total Protein 7.4 gm/dL (5.7-8.2); eGFR 49 See Note
[2024-10-05] MEDS: DILTIAZEM INJ 5 MG/ML VIAL 5 ML 10 MG IV (20:46)
[2024-10-05 20:53] LABS: INR 1.3 (0.9-1.3); Partial Thromboplastin Time 31.6 Seconds (22.0-36.0); Prothrombin Time 14.3 Seconds (9.0-12.2)
--- NOTE | 2024-10-05 21:28 | ECHO_ITS ---
Transthoracic Echo Report Ht (in): 58 Wt (lb): 90 Exam Location: Portable Status: Emergency Customer Service Assistant: Sada Lao Indications: Procedure Performed: BP: 121 / 66 HR: 96 Technical Quality: Fair MEASUREMENTS (Male / Female) Normal Values 2D ECHO LV Diastolic Diameter PLAX 4.5 cm 4.2 - 5.9 / 3.9 - 5.3 cm LV Systolic Diameter PLAX 3.1 cm IVS Diastolic Thickness 0.9 cm 0.6 - 1.0 / 0.6 - 0.9 cm LVPW Diastolic Thickness 0.8 cm 0.6 - 1.0 / 0.6 - 0.9 cm LV Relative Wall Thickness 0.4 LVOT Diameter 1.9 cm LA Volume Index 52.9 cm?/m? 16 - 28 cm?/m? Ascending Aorta Diameter 3.0 cm M-MODE Aortic Root Diameter MM 2.9 cm LA Systolic Diameter MM 2.8 cm LA Ao Ratio MM 1.0 AV Cusp Separation MM 1.7 cm DOPPLER AV Peak Velocity 255.5 cm/s AV Peak Gradient 26.1 mmHg AV Mean Gradient 12.5 mmHg AV Velocity Time Integral 49.9 cm AI Peak Velocity 388.7 cm/s AI Peak Gradient 60.4 mmHg AI Pressure Half Time 557.0 ms LVOT Peak Velocity 100.0 cm/s LVOT Peak Gradient 4.0 mmHg LVOT Velocity Time Integral 20.4 cm LVOT Cardiac Index 4302.1 cm?/min?m? AV Area Cont Eq vti 1.2 cm? AV Area Cont Eq pk 1.1 cm? MV Peak Velocity 145.0 cm/s MV Peak Gradient 8.4 mmHg MV Mean Velocity 94.2 cm/s MV Mean Gradient 4.0 mmHg MV Area PHT 2.8 cm? MR Peak Velocity 389.5 cm/s MR Peak Gradient 60.7 mmHg Mitral E Point Velocity 117.0 cm/s Mitral A Point Velocity 118.0 cm/s Mitral E to A Ratio 1.0 LV E' Lateral Velocity 5.9 cm/s Mitral E to LV E' Lateral Ratio 19.9 LV E' Septal Velocity 5.1 cm/s Mitral E to LV E' Septal Ratio 22.9 TR Peak Velocity 265.3 cm/s TR Peak Gradient 28.2 mmHg FINDINGS Left Ventricle Normal left ventricular size, wall thickness, systolic function with no obvious regional wall motion abnormalities. The ejection fraction is visually estimated at 60-65%. Right Ventricle The right ventricle is normal in size and systolic function. The estimated right ventricular systoli c pressure, 40mmHg. RAP 5. Left Atrium The left atrium is severely dilated. Right Atrium The right atrium is normal by two-dimensional imaging, color flow and Doppler imaging with no struct ural abnormalities, no thrombus formation present. Atrial Septum The interatrial septum appears normal with no evidence of a shunt. Aorta The aorta is normal by two-dimensional, color flow and Doppler interrogation. Mitral Valve The mitral valve is normal by two-dimensional, color flow and Doppler interrogation. There is modera te mitral valve regurgitation. Aortic Valve The aortic valve is trileaflet and normal by two-dimensional, color flow and Doppler interrogation. There is moderate aortic valve regurgitation. Tricuspid Valve The tricuspid valve is normal by two-dimensional, color flow and Doppler interrogation. There is mod erate tricuspid valve regurgitation. Pulmonic Valve There is trace pulmonic valve regurgitation. Vessels The pulmonary artery appears normal. The inferior vena cava pulmonary and hepatic veins appear isi l. Pericardium The pericardium is normal by two-dimensional imaging. There is no significant pericardial effusion. Other Findings Pleural effusion present. CONCLUSIONS Indication: CHF and Afib Normal LV size and function. Estimated EF 60-65%. Diastolic dysfunction present cannot be estimated due to Afib. Normal RV size and function. Estimated RVSP 40mmHg. Atleast mild PAH. Moderate TR. Severe LA dilatation. Moderate MR. Mild AI . Trace PI. Pleural effusion present. Tino Beltran (Electronically Signed) Final Date: 06 October 2024 19:12
--- NOTE | 2024-10-05 21:29 | PD.EVENT ---
Documentation for date of: 10/05/24 Event Note Event Note: An 88-year-old female presented to the ER with abnormal labs. The patient was evaluated by her oncologist at [facility] earlier today, where her hemoglobin level was reported as 6.5, and she was instructed to come to the ER for a possible blood transfusion. Additionally, she complained of a cough that began approximately one week ago, characterized by yellow phlegm. She denied associated fever, chest pain, vomiting, or shortness of breath but reported difficulty sleeping due to the cough. Her family noted general weakness at times but stated she remains independent. She has a partial gastrectomy with PEG tube placement for feeding but can occasionally eat by mouth. She denied diarrhea, recent blood in her stool, or vomiting. The patient has a medical history of gastric cancer, status post partial gastrectomy, and is currently on sunitinib malate chemotherapy. She also has a history of atrial fibrillation, which started during a prior admission, and a lower GI bleed likely secondary to hemorrhoids. She has undergone PEG tube placement and is managed with family support. Current medications include an oral chemotherapeutic agent, with no history of smoking or alcohol use. Her family serves as her primary caregivers. Her code status is full code per family discussion. In the Emergency Department, the patient was initially evaluated with vital signs showing a temperature of 99.1?F, heart rate of 125 bpm, respiratory rate of 20, and blood pressure of 134/83 mmHg. EKG confirmed atrial fibrillation with rapid ventricular response, for which she was administered 10 mg IV diltiazem. Laboratory results revealed leukopenia (WBC 2.7), anemia (Hb 7.4), thrombocytopenia (platelets 74), elevated troponin (0.52), and elevated BNP (1420). Imaging demonstrated prominent bibasilar pneumonia with mild associated heart failure. The patient was admitted for further management of pneumonia, heart failure, and atrial fibrillation. Assessment and Plan: #Community-Acquired Pneumonia - Initiate treatment with ceftriaxone and azithromycin - Monitor respiratory status and oxygenation - Supportive care with antipyretics as needed #Atrial Fibrillation with Rapid Ventricular Response - Administered 10 mg IV diltiazem in the ER; continue rate control with diltiazem - Monitor heart rate and rhythm via telemetry - Anemia and risk of GI bleeding, hold AC #Heart Failure, Likely Exacerbated by Atrial Fibrillation and Pneumonia - Manage fluid status with diuretics - Echo AM #Anemia - Hemoglobin currently at 7.4; no immediate need for transfusion based on threshold of 7.0 - Recheck hemoglobin and hematocrit AM #Thrombocytopenia - Platelets at 74; monitor for signs of bleeding - SCD #Leukopenia - WBC at 2.7; monitor for signs of infection #Gastric Cancer - Continue sunitinib malate chemotherapy per oncology guidance - Ensure adequate nutritional support via PEG tube feedings with dietitian input
[2024-10-05 21:56] LABS: Magnesium 2.2 mg/dL (1.6-2.6); Procalcitonin 3.75 ng/ml (0.0-0.49)
--- NOTE | 2024-10-05 22:02 | ESHP_ITS ---
Documentation for date of: 10/05/24 HPI History of Present Illness Chief complaint: Cough History of present illness: HPI: Interaction facilitated by registered health care meat press operator.. Patient is a Tagalog speaking 88-year-old female with a past medical history significant for gastric cancer status post partial gastrectomy currently on sunitinib malate and follows up with oncologist at [facility], chronic microcytic anemia, failure to thrive, pancytopenia, atrial fibrillation?paroxysmal not on anticoagulation and history of GI bleed presenting today with a chief complaint of a productive cough for the past week. Patient had appointment with her oncologist at [facility] today and had routine labs done which revealed her hemoglobin to be 6.5. She was advised to present to the emergency department for possible urgent transfusion. However upon arrival repeat CBC was done which revealed her hemoglobin to be 7.4, no need for emergent transfusion at this time. According to the patient's daughter she had a cough productive of yellow sputum for the past week. Her sick contact was her . Denies any SOB, vomiting, fever, diarrhea, PND/orthopnea, chest pain/pressure or palpitations and lower extremity swelling. Her daughter also states that she mostly has tube feeds but can also tolerate orally however very minimal intake. At baseline she ambulates on her own but sometimes requires assistance. She also requires assistance with ADLs such as self-care, hygiene needs and feeding. ED course: BP 134/84, pulse 106, RR 20, temp 99.1 F, SpO2 95% on 2L via NC. Labs significant for Hb 7.4, HCT 23, WBC 2.7, PLT 74, BUN 13, CR 1.1, BNP 1420, Trop I 0.52. EKG significant for atrial fibrillation with RVR, rate 116. No acute ST elevation or depression. Chest x-ray significant for bibasilar consolidation, bilateral pleural effusion and increased vascular congestion. In the ED patient received 500 cc normal saline IV fluid bolus, diltiazem 10 Mg IV x 1 and ceftriaxone 1 g IV x 1. Patient will be admitted for sepsis secondary to community-acquired pneumonia and new onset acute decompensated heart failure exacerbation. Medication List : ? Sunitinib maleate 25 Mg p.o. daily ? Mirtazapine 7.5 Mg p.o. at bedtime ? Allopurinol 100 Mg p.o. daily ? Furosemide 20 Mg p.o. daily ? Megestrol 10cc po daily Review of Systems Review of Systems Narrative Review of Systems: GENERAL: Denies fever/chills or diaphoresis. HEENT: Denies headaches or visual changes. Denies discharge. Neuro: Denies unusual weakness or difficulty speaking. CARDIO: As above PULM: As above. GI: Denies abdominal pain, N/V/C/D. Reports having BMs. URO: Denies buring/itching/pain/urinary changes. MSK/EXT/SKIN: Denies joint/skeletal/muscle pain, issues/changes in upper or lower extremities, itchiness, or superficial pain. PSYCH: Cooperative, pleasant mood & affect. The rest of the review of systems is otherwise negative. Past Medical History Past Medical History NEUROLOGIC: Positive Dementia CARDIAC: Positive Atrial Fibrillation (Paroxsymal) GASTROINTESTINAL: Positive Gastrointestinal Disorders (Linitus plastica) and Gastrointestinal Bleed HEMATOLOGIC: Positive Blood Disorders (Pancytopenia) and Anemia (Macrocytic secondary to partial gastrectomy) PSYCHO/SOCIAL: Positive Eating Disorder (anorexia) OTHER HISTORY: Positive Blood Transfusions Exam Vital Signs Temp Pulse Resp BP Pulse Ox O2 Del Method O2 Flow Rate 99.1 F 121 H 18 130/80 96 Room Air 2 10/05/24 16:38 10/05/24 20:46 10/05/24 20:34 10/05/24 20:46 10/05/24 20:34 10/05/24 20:34 10/05/24 20:02 Narrative Exam Constitutional Alert, oriented x 3 and comfortable. Elderly female, cachectic, bitemporal wasting. HEENT Vision grossly intact. Patent nares. Trachea midline. Respiratory Chest normal on inspection and scattered crackles on auscultation throughout all lung torres, reduced air entry. Cardiovascular S1 and S2 audible, RRR. No murmurs carotid bruit. No gross JVD. Abdominal Soft and non tender to palpation in all quadrants. BS +, PEG tube insitu, exit site clean. Genitourinary No bladder tenderness, no flank pain. Normal to palpation. Musculoskeletal Extremities tone within normal limits. 2+ pitting edema up to kness bilaterally. Neurological CN II - XII grossly intact. Extremity motor and sensation grossly intact. Skin Warm, dry and intact. No apparent lesions. Psychiatric Patient has good affect, is cooperative. Results: Labs 10/05/24 17:03 10/05/24 19:50 Labs: Short CBC 10/05/24 Range/Units 17:03 WBC 2.7 L (3.6-11.0) Thou/mm3 Hgb 7.4 L (12.0-16.0) g/dL Hct 23.0 L (36.0-46.0) % Plt Count 74 L D (140-440) Thou/mm3 BMP 10/05/24 19:50 Sodium 142 Potassium 4.6 Chloride 107 Carbon Dioxide 23.2 BUN 30 H Creatinine 1.1 Glucose 95 Calcium 8.2 L Cardiac Enzymes 10/05/24 Range/Units 19:50 Troponin I 0.520 H* (0.0-0.045) ng/mL Liver Function 10/05/24 Range/Units 19:50 Total Bilirubin 1.1 (0.3-1.2) mg/dL AST 90 H (0-34) U/L ALT 24 (10-49) U/L Alkaline Phosphatase 99 (46-116) U/L Albumin 2.5 L (3.4-4.8) gm/dL Quality Measures Quality Measures VTE prophylaxis (SCDs) Advance care planning discussed with:: child Medications Home Medications and Allergies Home Medications ?Medication ?Instructions ?Recorded ?Confirmed ?Type mirtazapine 7.5 mg tablet 7.5 mg PO QPM 08/11/24 08/11/24 History sunitinib malate 25 mg capsule 25 mg PO DAILY 08/11/24 08/11/24 History Allergies Allergy/AdvReac Type Severity Reaction Status Date / Time No Known Allergies Allergy Verified 08/10/24 18:56 Visit Medications Acetaminophen (Acetaminophen 325 Mg Tablet) 650 mg PO Q6H PRN PRN Reason: Fever >101.5 Stop: 11/04/24 21:23 Diltiazem HCl (Diltiazem 30 Mg Tablet) 30 mg PO TID [facility] Stop: 11/04/24 21:59 Furosemide (Furosemide Inj 10 Mg/Ml 4ml Vial) 40 mg IVP QDAY [facility] Stop: 11/05/24 08:59 Azithromycin 500 mg/ Sodium (Chloride) 250 mls @ 250 mls/hr IV DAILY@2100 [facility] Stop: 10/12/24 21:25 Ceftriaxone Sodium/Dextrose (Rocephin/D5w 1gm Iv Premix) 50 mls @ 100 mls/hr IV DAILY@2100 [facility] Stop: 10/12/24 20:59 Pantoprazole Sodium (Pantoprazole Inj 40 Mg Vial) 40 mg IV QDAY [facility] Stop: 11/05/24 08:59 Discontinued Medications Diltiazem HCl (Diltiazem Inj 5 Mg/Ml Vial 5 Ml) 10 mg IV X1 ONE Stop: 10/05/24 20:26 Last Admin: 10/05/24 20:46 Dose: 10 mg Sodium Chloride (Ns) 500 mls @ 999 mls/hr IV .Q31M ONE Stop: 10/05/24 19:44 Last Infusion: 10/05/24 20:47 Dose: Infused Assessment & Plan Plan Patient is a Tagalog speaking 88-year-old female with a past medical history significant for gastric cancer status post partial gastrectomy currently on sunitinib malate and follows up with oncologist at [facility], chronic microcytic anemia, failure to thrive, pancytopenia, atrial fibrillation?paroxysmal not on anticoagulation and history of GI bleed presenting today with a chief complaint of a productive cough for the past week. Patient will be admitted for sepsis secondary to community-acquired pneumonia and new onset acute decompensated heart failure exacerbation. 1. Likely sepsis secondary to community-acquired pneumonia 2. SIRS 3/4 Patient presented with a chief complaint of a productive cough with past week. On exam patient has crackles auscultated throughout lung torres on 2+ pitting edema up to the knees bilaterally. On imaging chest x-ray significant for bilateral pleural effusion, bibasilar consolidation and increased vascular congestion. SIRS 3/4. Heart rate 127, respiration 26, WBC 2.7. Patient source of infection likely community-acquired pneumonia. She also has signs of end organ damage with an WILLIE. Curb 65 : 2 points; consider inpatient or outpatient treatment. PSI/PORT : 147 points ; hospitalization recommended based on risk Plan: ? Sputum culture and Gram stain ordered ? Influenza A&B rapid panel ordered ? RSV ordered ? Started on ceftriaxone 1 g IV daily on [10/05? ? Started on azithromycin 500 Mg IV daily on [10/05? 3. Acute kidney injury prerenal versus renal Likely prerenal secondary to poor oral and G-tube intake. On admission CR 1.1. From chart review baseline CR 0.8 Plan: ? Patient received normal saline 500 cc IV fluid bolus ? Renally dose medications ? Avoid nephrotoxic agents 4. Likely new onset acute decompensated heart failure exacerbation 5. NSTEMI type I versus type II Patient had a chief complaint of nonproductive cough for the past week. On exam patient Crackles scattered throughout all lung torres as well as 2+ pitting edema up to her knees bilaterally. On imaging chest x-ray significant for bilateral pleural effusion, bibasilar consolidation and increased vascular congestion. BNP 1420, troponin 0.52 NSTEMI likely type II due to CHF exacerbation. Patient has no symptoms of ACS. Home diuretic Lasix 20 Mg p.o. daily. No echocardiogram seen on file and patient does not have a documented history of heart failure. Patient's daughter also denied any history of heart failure. Plan: ? Strict input/output charted ? 1500 cc/day fluid restriction ? 2 g salt restricted diet ? Daily weights ? Telemetry monitoring ? Lasix 40 Mg IV daily ? Transthoracic echocardiogram ordered to assess for wall motion abnormalities, valvular defects and ejection fraction. ? Day team to decide on cardiology referral for new onset heart failure exacerbation as well as atrial fibrillation. 6. Atrial fibrillation?paroxysmal Patient had a history of atrial fibrillation on previous EKGs. On admission EKG significant for atrial fibrillation with RVR, rate 116. [id number]: 4 points; 6.7% stroke risk per year HAS-BLED : 2 points; moderate risk for bleeding Patient has history of GI bleed August 2024 therefore anticoagulation not pursued. Plan: ? Continue telemetry monitoring ? Started on diltiazem 30 Mg p.o. 3 times daily for rate control ? Anticoagulation contraindicated due to recent GI bleed ? Will maintain K >4 and Mg >2 at all times to avoid any further arrhythmias 7. History of gastric cancer status post partial gastrectomy on sunitinib malate 8. Failure to thrive status post PEG tube insertion 9. Chronic macrocytic anemia 10. Thrombocytopenia 11. Pancytopenia Patient has history of linitis plastica status post partial gastrectomy and currently on sunitinib, tyrosine inhibitor. She follows up with her oncologist at [facility]. Patient also has failure to thrive due to gastrectomy, poor oral intake and nutritional deficiencies. She had a PEG tube inserted August 2024 for adequate nutrition. Hb 7.4, MCV 117, WBC 2.7, PLT 74 Plan: ? Referral to registered dietitian for tube feeds ? Monitor hemoglobin and CBC. Will transfuse if Hb <7 - Resumed home medication mirtazapine 7.5 Mg p.o. at bedtime ? Pantoprazole 40 Mg IV daily Health maintenance: Disposition: IV antibiotics, IV diuresis, ECHO Diet: GT feeds Lines: pIVs GI Prophylaxis: Pantoprazole Thrombo Prophylaxis: SCDs Code status: FULL CODE Plan of care discussed with Attending Dr. Dilan Callaway MD PGY 1 Attending Provider Attestation/Addendum Pt was evaluated and plan formulated together with the housestaff team. I have reviewed the residents note above and agree with most of its content. Please refer to the residents note for additional details.
[2024-10-05] MEDS: DILTIAZEM 30 MG TABLET PO (22:06)
[2024-10-05] MEDS: cefTRIAXone/D5w 1gm IV premix 50 ML IV (22:06)
[2024-10-05] MEDS: AZITHROMYCIN INJ 500 MG in SODIUM CHLORIDE 0.9% 250 ML 250 ML 250 MG IV (22:07)
--- NOTE | 2024-10-05 23:28 | PC.NURSE ---
REPORT CALLED TO KATIE GRACIA. ALL QUESTIONS ASKED AND ANSWERED. PATIENT TRANSFERRED TO ROOM BY STAFF. PATIENT REMAINS ON 2L O2. NO DISTRESS NOTED ON TRANSFER.
[2024-10-06] VITALS (20 sets, daily range): BP systolic 110–128; BP diastolic 66–95; PULSE 82–112; RESP 16–22; TEMP 36.2–37.1; O2SAT 90–98; BMI 17.6
[2024-10-06] MEDS: FUROSEMIDE INJ 10 MG/ML VIAL 2 ML 20 MG IVP (00:27)
[2024-10-06 01:49] LABS: Collection Type, Urine Clean Catch
[2024-10-06 02:02] LABS: Bilirubin,Urine Negative (Negative); Blood,Urine Negative (Negative); Clarity,Urine Clear (Clear/Hazy); Color,Urine Yellow (Lt Yel-Yel); Glucose, Urine Negative (Negative); Hyaline Casts,Urine < 1 /hpf (0-1); Ketones,Urine Negative (Negative); Leukocyte Esterase,Urine Negative (Negative); Nitrite,Urine Negative (Negative); Protein,Urine 1+ (Neg - Trace); RBC,Urine 2 /hpf (0-3); Specific Gravity,Urine 1.015 (1.001-1.035); Squamous Epithelial Cell,Urine < 1 /hpf (0-5); Urobilinogen,Urine Negative mg/dL (0.0-1.0); WBC,Urine 1 /hpf (0-5)
[2024-10-06 02:12] LABS: Amphetamine/Methamp Scrn,U Negative (Negative); Barbiturate Screen,Urine Negative (Negative); Benzodiazepines Screen,Urine Negative (Negative); Benzoylecgonine Screen, Ur Negative (Negative); Fentanyl Screen,Urine Negative (Negative); Opiate Screen,Urine Negative (Negative); THC Screen,Urine Negative (Negative)
[2024-10-06 02:24] LABS: Respiratory Syncytial Virus Ag Negative (Negative)
[2024-10-06 02:35] LABS: Influenza A Ag Positive; Influenza B Ag Negative
--- NOTE | 2024-10-06 02:46 | PC.RT ---
RT in room to collect sputum sample, pt still has not produced at this time. Sputum cup left at bedside, pt is aware of instructions for collection
[2024-10-06] MEDS: DILTIAZEM 30 MG TABLET PO ×2 (05:35→14:35)
[2024-10-06 05:57] LABS: Basophils % (Auto) 0 % (0-2.5); Eosinophils % (Auto) 0 % (0-10); Hematocrit 20.7 % (36.0-46.0); Immature Granulocytes % (Auto) 2 % (0-0); Immature Granulocytes Auto 0.04 Thou/mm3 (0.00-0.00); Lymphocytes # (Auto) 0.5 Thou/mm3 (1.0-4.8); Lymphocytes % (Auto) 19 % (10-50); Mean Corpuscular HGB Conc 32.9 g/dl (31.0-37.0); Mean Corpuscular Volume 116 fL (80-100); Monocytes # (Auto) 0.3 Thou/mm3 (0.0-0.8); Monocytes % (Auto) 13 % (0-12); Neutrophils # (Auto) 1.7 Thou/mm3 (1.8-7.7); Neutrophils % (Auto) 67 % (37-80); Nucleated Red Blood Cell # 1.43 Thou/mm3 (0.00-0.00); Nucleated Red Blood Cell % 58 /100 WBC (0); RDW Standard Deviation 68.1 fL (36.4-46.3); Red Blood Count 1.79 Miln/mm3 (4.00-5.20)
[2024-10-06 06:16] LABS: White Blood Count 2.5 Thou/mm3 (3.6-11.0)
[2024-10-06 06:17] LABS: Hemoglobin 6.8 g/dL (12.0-16.0); Platelet Count 68 Thou/mm3 (140-440)
[2024-10-06 06:38] LABS: Slide Review Platelets confirmed
[2024-10-06 06:39] LABS: Anion Gap 13 (7-16); BUN/Creatinine Ratio 27 Ratio (12-20); Blood Urea Nitrogen 30 mg/dL (9-23); Calcium 8.1 mg/dL (8.3-10.6); Chloride 106 mMol/L (98-107); Creatinine (Component) 1.1 mg/dL (0.6-1.3); Glucose 95 mg/dL (74-106); Magnesium 2.2 mg/dL (1.6-2.6); Osmolality,Calculated 293 (275-295); Phosphorous 3.7 mg/dL (2.4-5.1); Potassium 4.1 mMol/L (3.4-5.1); Sodium 144 mMol/L (136-145); eGFR 49 See Note
[2024-10-06 06:46] LABS: Troponin I 0.367 ng/mL (0.0-0.045)
[2024-10-06] MEDS: FUROSEMIDE INJ 10 MG/ML 4ML VIAL 40 MG IVP (08:40)
[2024-10-06] MEDS: PANTOPRAZOLE INJ 40 MG VIAL IV (08:40)
--- NOTE | 2024-10-06 09:30 | ESCONSULT_ITS ---
<Statement entered by Tino Beltran MD - 10/07/24 04:36> I have personally seen and examined the patient separately on the above date of service and discussed the plan of care with the resident. I reviewed the resident Dr. Rhodes consultation note and agree with the resident findings and plan in the note above and have also edited the documentation to reflect my findings and plan. 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 Patient was found to have date atrial fibrillation with RVR in the emergency department which is previously noted to normal 2023 also. Patient is significant upper respiratory tract symptoms but denies any current chest pain chest pressure or palpitations found orthopnea or PND or leg swelling. Patient appears to be cachectic with temporal wasting. In the emergency department patient is present with 124/84 and heart rate was around 100 And 20 bpm, respiratory 20/min, temperature 99.1 and saturating 90% on 2 L nasal cannula. Labs showed hemoglobin of 7.4 and repeat was 6.8, WBC of 3.7 and repeat of 2.5 and platelets of 74, BUN of 30 creatinine of 1.1 rest of the BMP was in the normal range. Troponins were elevated at 0.52 and repeat troponin was 0.367 which is downtrending. LFTs were normal except for AST of 90 and albumin low at 2.5. UA was negative. EKG showed atrial fibrillation with RVR 816 bpm but no acute ST-T changes. Chest x-ray showed bibasilar pulmonary consolidation with the possible small effusions and some vascular congestion. Cardiology was consulted for further evaluation of atrial fibrillation with RVR as well as her elevated troponins. Plan: Patient with paroxysmal atrial fibrillation with RVR. Family not aware of atrial fibrillation but it appears that patient has documented A-fib with normal 2023. Paroxysmal versus persistent A-fib EKG showed A-fib with RVR rate and hide 60 bpm with no other acute ST-T changes. Patient is on Cardizem 30 mg every 6 hours and recommend to discontinue it and start metoprolol XL 50 mg XL and can increase or uptitrated based on the blood pressure. Since Vascor is high but patient is severely anemic and has history of GI bleed and hence heparin not on anticoagulation and recommend to hold off on 8 until further workup of the anemia performed by the primary team. Keep potassium greater than 4 magnesium greater than 2.0 at all times. Patient presented with elevated troponins at 0.5 and decreased to 0.3. Mostly NSTEMI type II secondary to supply/demand mismatch in the setting of positive flu and pneumonia with sirs. EKG as noted above did not show any acute ST-T changes. Patient denies any cardiac complaints. No aspirin in view of the GI bleed. Check TSH A1c lipid profile for further cardiac restratification. No heparin drip. Echocardiogram ordered and will follow-up the results evaluate the LV function RV function as well as diastolic function and to rule out any sort of structural abnormalities. Question of heart failure patient mostly has HFpEF and chronic diastolic heart failure in the setting of paroxysmal atrial fibrillation. NT proBNP was elevated at thousand and chest x-ray did show some vascular congestion but overall patient looks volume depleted. Patient did not receive the PRBCs and would recommend 1 dose of IV Lasix after the IV PRBC transfusions completed. Strict input output Daily recent 2 g sodium diet. Will continue to follow the echocardiogram results. Management of rest of the medical conditions as per primary team and other consultants. Thank you for the consult and allowing me to participate in the care of the patient. Cardiology will continue to follow. Tino Beltran M.D. Interventional Cardiology HPI Data of Consult Requesting Physician: Anthony Torres MD Admitting Provider: Taqueria Kong MD Attending Provider: Anthony Torres MD Primary Care Provider: Gopal Dawson MD Consult Narrative History of present illness: HPI is limited as pt has trouble projecting voice with translator and interpreter, spoke with family and was able to get some history as well. Stefani is a 88 y/o Tagalog speaking female with PMHx of gastric cancer (Diagnosed 2008), s/p partial gastrectomy (2008) (on Sunitinib malate, maintenance chemo, follows [facility] oncology, Dr. Hall?), chronic microcytic anemia, pancytopenia, failure to thrive, paroxysmal afib (not on A/C), hx of GI bleed, and gout who comes for an evaluation of a productive cough with yellow sputum. Patient recently had an appointment with her oncologist from [facility] and it was shown for her to have hemoglobin of 3.5, she came to the ER for further evaluation and it was 7.4. Family is unsure if patient has A-fib, however it has been documented on chart history and also patient had A-fib documented on last visit seen in July 2024. She recently had G-tube placement in July [address] Ledesma as she was having poor oral intake and failure to thrive. Is reported that she still is able to tolerate p.o. however has very little appetite. 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 Patient's family is unsure if patient has A-fib, but denies being on any blood thinners. Patient denies having any chest pain, palpitations, headache, nausea, orthopnea or lower extremity swelling at this time. At baseline, patient is able to ambulate on her own, however sometimes will need assistance, and at home she needs assistance with adult daily living activities. Her sick contact was her . Denies using oxygen at home. No other complaints this time. ED course: Patient with a blood pressure of 134/84, pulse of 106, respiratory of 20, temperature 99.1 satting on 95% on 2 L nasal cannula. Patient was worked up was found to have sodium of 142, potassium 4.6, hemoglobin 7 4, BUN/creatinine of 30 and 1.1 respectively, bicarbonate of 23, calcium 9.4, troponin of 0.52, magnesium 2.2. EKG showed A-fib with RVR with rate 116. X-ray showed bibasilar consolidation, bilateral pleural effusion and increased vascular congestion. Patient was given 500 cc NS x 1, Cardizem 10 mg x 1, and Rocephin 1 g x 1. Medicine was consulted and patient was admitted to the floors Past medical history: As above Surgeries: Partial gastrectomy in 2008 Allergies: No known allergies Meds: Sunitinib maleate 25 Mg p.o. daily, Mirtazapine 7.5 Mg p.o. at bedtime, Allopurinol 100 Mg p.o. daily, Furosemide 20 Mg p.o. daily, Megestrol 10cc po daily Family history: Patient is unable to provide family history unknown Social history: Danial lives with her does not smoke, drink, or use alcohol. cc:: cc: Anthony Torres MD Review of Systems Review of Systems Narrative Review of Systems: Constitutional: No fever, chills, fatigue, weakness, weight loss HEENT: No eye pain, vision loss, ear pain, hearing loss, dysphagia, Cardiovascular: No chest pain, palpitations, edema, pain with walking Respiratory: + cough, shortness of breath, wheezing GI: No NVD, abdominal pain, constipation, blood in stool, loss of appetite, heartburn Extremities: No presence of pitting edema MSK: No back pain, joint pain, joint swelling Neuro: No dizziness, numbness, weakness, headaches, seizures, tremors Psych: No anxiety, depression Exam Vital Signs Temp Pulse Resp BP Pulse Ox O2 Del Method O2 Flow Rate 97.9 F 97 18 115/72 95 Nasal Cannula 2 10/06/24 08:00 10/06/24 08:40 10/06/24 08:00 10/06/24 08:40 10/06/24 08:00 10/06/24 08:00 10/06/24 08:00 Narrative Exam General: AAOx3, cachexia, temporal muscle wasting bilat, NAD, clavicles present with little to no muscle surrounding, weak and frail elderly woman HEENT: Irregularly irregularDry mucous membranes, conjunctiva clear, EOMI, PERRLA, Cardiovascular: S1, S2, radial pulses +2 bilat, irregularly irregular Pulmonary: CTAB bilat no cough, no wheezing GI: No tenderness to light or deep palpitation, no guarding, rigidity, rebound tenderness or distension Extremities: No presence of trace or pitting edema in lower extremities bilaterally, dorsalis pedis pulses +2 bilaterally, little muscle definition in LE Neuro: AAOx3, no focal motor or sensory deficits in the UE or LE bilat Psych: Able to somewhat cooperate Results Labs 10/06/24 18:40 10/06/24 04:57 Labs: Short CBC 10/05/24 10/06/24 Range/Units 17:03 04:57 WBC 2.7 L 2.5 L (3.6-11.0) Thou/mm3 Hgb 7.4 L 6.8 L* (12.0-16.0) g/dL Hct 23.0 L 20.7 L* (36.0-46.0) % Plt Count 74 L D 68 L (140-440) Thou/mm3 BMP 10/05/24 10/06/24 19:50 04:57 Sodium 142 144 Potassium 4.6 4.1 D Chloride 107 106 Carbon Dioxide 23.2 25.0 BUN 30 H 30 H Creatinine 1.1 1.1 Glucose 95 95 Calcium 8.2 L 8.1 L Cardiac Enzymes 10/05/24 10/06/24 Range/Units 19:50 04:57 Troponin I 0.520 H* 0.367 H* (0.0-0.045) ng/mL Liver Function 10/05/24 Range/Units 19:50 Total Bilirubin 1.1 (0.3-1.2) mg/dL AST 90 H (0-34) U/L ALT 24 (10-49) U/L Alkaline Phosphatase 99 (46-116) U/L Albumin 2.5 L (3.4-4.8) gm/dL Urine 10/06/24 Range/Units 01:30 Urine Color Yellow (Lt Yel-Yel) Urine Clarity Clear (Clear/Hazy) Urine pH 6.0 (5.0-7.0) Ur Specific [place] 1.015 (1.001-1.035) Urine Protein 1+ A (Neg - Trace) Urine Glucose (UA) Negative (Negative) Quality Measures Quality Measures VTE prophylaxis (SCDs) Advance care planning discussed with:: patient and child Medications Home Medications and Allergies Home Medications ?Medication ?Instructions ?Recorded ?Confirmed ?Type mirtazapine 7.5 mg tablet 7.5 mg PO QPM 08/11/24 08/11/24 History sunitinib malate 25 mg capsule 25 mg PO DAILY 08/11/24 08/11/24 History Allergies Allergy/AdvReac Type Severity Reaction Status Date / Time No Known Allergies Allergy Verified 08/10/24 18:56 Visit Medications Acetaminophen (Acetaminophen 325 Mg Tablet) 650 mg PO Q6H PRN PRN Reason: Fever >101.5 Stop: 11/04/24 21:23 Diltiazem HCl (Diltiazem 30 Mg Tablet) 30 mg PO TID LAKESHA Stop: 11/04/24 21:59 Last Admin: 10/06/24 05:35 Dose: 30 mg Furosemide (Furosemide Inj 10 Mg/Ml 4ml Vial) 40 mg IVP QDAY LAKESHA Stop: 11/05/24 08:59 Last Admin: 10/06/24 08:40 Dose: 40 mg Azithromycin 500 mg/ Sodium (Chloride) 250 mls @ 250 mls/hr IV DAILY@2100 LAKESHA Stop: 10/12/24 21:25 Last Infusion: 10/05/24 23:33 Dose: Infused Ceftriaxone Sodium/Dextrose (Rocephin/D5w 1gm Iv Premix) 50 mls @ 100 mls/hr IV DAILY@2100 LAKESHA Stop: 10/12/24 20:59 Last Infusion: 10/05/24 22:37 Dose: Infused Mirtazapine (Mirtazapine 15 Mg Tablet) 7.5 mg PO HS LAKESHA Stop: 11/05/24 20:59 Oseltamivir Phosphate (Oseltamivir 30 Mg Capsule) 30 mg PO DAILY LAKESHA Stop: 10/10/24 09:01 Pantoprazole Sodium (Pantoprazole Inj 40 Mg Vial) 40 mg IV QDAY LAKESHA Stop: 11/05/24 08:59 Last Admin: 10/06/24 08:40 Dose: 40 mg Discontinued Medications Diltiazem HCl (Diltiazem Inj 5 Mg/Ml Vial 5 Ml) 10 mg IV X1 ONE Stop: 10/05/24 20:26 Last Admin: 10/05/24 20:46 Dose: 10 mg Furosemide (Furosemide Inj 10 Mg/Ml Vial 2 Ml) 20 mg IVP X1 ONE Stop: 10/06/24 00:11 Last Admin: 10/06/24 00:27 Dose: 20 mg Sodium Chloride (Ns) 500 mls @ 999 mls/hr IV .Q31M ONE Stop: 10/05/24 19:44 Last Infusion: 10/05/24 20:47 Dose: Infused Oseltamivir Phosphate (Oseltamivir 75 Mg Capsule) 75 mg PO BID LAKESHA Stop: 10/10/24 08:59 Sodium Chloride (Sodium Chloride Rt 10% 15 Ml Nebu) 5 ml INH X1 ONE Stop: 10/05/24 22:20 Sodium Chloride (Sodium Chloride Rt 10% 15 Ml Nebu) 5 ml INH X1 ONE Stop: 10/06/24 08:09 Assessment & Plan Plan Assessment Stefani is a 88 y/o Tagalog speaking female with PMHx of gastric cancer (Diagnosed 2008), s/p partial gastrectomy (2008) (on Sunitinib malate, maintenance chemo, follows [facility] oncology, Dr. Hall?), chronic microcytic anemia, pancytopenia, failure to thrive, paroxysmal afib (not on A/C), hx of GI bleed, and gout who is currently admitted for afib with RVR likely secondary to influenza PNA. Admitted for mild failure of # Chronic paroxysmal A-fib with RVR [id number] HAS-BLED: 1, relatively low risk of major bleeding Rate controlled, EKG 116, irregularly irregular rhythm AC: Held in setting of GI bleed No documented history of heart failure Will need to see patient's heart function, however there is no contraindication at this time for beta-tye, will stop Cardizem 30 mg 3 times daily and resume beta-tye Patient likely went into A-fib with RVR due to having influenza pneumonia Plan: ?Follow-up echo ?Discontinued Cardizem, will start metoprolol 50 XL and may increase to 100 tomorrow depending on blood pressure room ?Keep magnesium and potassium above 2 and 4 respectively to avoid any arrhythmias ?Holding anticoagulation in setting of GI bleed #NSTEMI type II likely related to demand ischemia, resolved #? CHF Patient was started on diuresis Lasix 40 Checks x-ray does show some possible vascular congestion Clinically patient does not look like they have heart failure no JVD no edema in lower extremities not on oxygen BNP was in the ~1000 Patient home medicine takes Lasix 20 mg We will follow-up with echo Plan: ?Follow-up with echo ?As above ?Lasix 40 IV mg started by primary team # History of gastric cancer status post partial gastrectomy on sunitinib malate, 2008 # Failure to thrive status post PEG tube insertion Side effects of sunitinib include chest pain 13%, decreased left ventricular ejection fraction 11 to 60%, hypertension 15 to 39%, increased CK 49% and peripheral edema roughly 4% It may also increase QT Patient can tolerate p.o. but also has G-tube Plan: ? Continue with this medicine for patient's history ?Continue tube feeds #Chronic macrocytic anemia MCV ~110s Likely related to gastric cancer history and resection Was given 1 PRBC today Plan: ? Folate and B12 studies ?On Protonix 40 mg ?Transfusion protocol for hemoglobin below 7 #Sepsis #Acute hypoxic respiratory failure -improving # Bilateral community-acquired pneumonia # Influenza A positive # SIRS 3/4 # Acute kidney injury prerenal versus renal # new onset acute decompensated heart failure exacerbation # NSTEMI type II-demand ischemia # History of gastric cancer status post partial gastrectomy on sunitinib malate # Failure to thrive status post PEG tube insertion # Chronic macrocytic anemia # Thrombocytopenia # Pancytopenia Patient seen and care discussed with my attending physician, Dr. Ruby Flanagan, PGY-1
--- NOTE | 2024-10-06 10:15 | PC.DIETICIAN ---
Nutrition prescription Jevity 1.2 at 30 ml/hr via PEG tube by pump. Advance 10 ml every 8 hrs to goal rate of 45 ml/hr x 24 hrs. If no IV fluids, water flushes of 20 ml/hr (or per MD).
--- NOTE | 2024-10-06 11:17 | ESPR_ITS ---
Documentation for date of: 10/06/24 Senior resident attestation: Patient evaluated and examined at the bedside, plan of care discussed with rest of the team including my attending physician, except as noted. Patient admitted overnight for WILLIE, pneumonia, secondary to flu A, A-fib, history of gastric cancer, chronic anemia, concern for new onset CHF, will order echo and a cardiac consult, mild troponin elevation, likely type II NSTEMI, continue with Emgality antibiotics and Tamiflu for influenza A as well as concern for possible superimposed bacterial pneumonia. Noted acute anemia due to GI bleed, likely lower GI secondary to hemorrhoids, blood transfusion ordered by overnight team. Will continue to monitor. Quresh PGY2 Subjective Subjective Interval history: 10/06: Patient is an overnight admit. Patient is seen and examined at bedside this morning. Patient is a frail and elderly female whose had recurrent readmissions recently. Patient is status post peg tube from last admission. Patient was at [facility] for her gastric cancer treatment and where was found to have a hemoglobin of less than 7 so patient was advised to return to [facility] for possible blood transfusion. Repeat hemoglobin here was 6.2 and 1 unit of PRBC is ordered. Patient was also found to have acute hypoxic respiratory failure requiring oxygen via nasal cannula secondary to bilateral pneumonia. Patient is influenza positive but this morning patient is saturating on room air not requiring any oxygen on nasal cannula. Patient has no complaints PEG tube site is clean, will resume tube feedings along with as tolerated. Patient is also found to have BNP of 1429 likely fluid overload in the setting of new CHF. Exam Vital Signs Temp Pulse Resp BP Pulse Ox O2 Del Method O2 Flow Rate 97.2 F 94 18 127/84 98 Nasal Cannula 2 10/06/24 11:15 10/06/24 11:15 10/06/24 11:15 10/06/24 11:15 10/06/24 11:15 10/06/24 08:00 10/06/24 08:00 Narrative Exam GENERAL: Elderly cachectic female, awake, Not in acute distress NEURO: no focal neurological deficits HEENT: Atraumatic, Normocephalic. mucous membranes moist. Eyes open, symmetrical, & clear HEART: Normal Heart Sounds LUNGS:crackles bilaterally on auscultation ABDOMEN: soft, non-distended, non-tender, bowel sounds heard, no guarding or rebound tenderness, PEG tube site clean and does not appear infected SKIN: No Rash or ecchymoses EXTREMITIES: 2+ pitting edema up to knees bilaterally, no tenderness, able to move all 4 extremities, pedal pulses palpated Objective Labs 10/06/24 04:57 10/06/24 04:57 Labs: Laboratory Results - last 24 hr 10/05/24 10/05/24 10/05/24 17:03 19:50 21:13 WBC 2.7 L RBC 1.96 L* Hgb 7.4 L Hct 23.0 L MCV 117 H MCH 37.8 H MCHC 32.2 RDW Std Deviation 69.2 H Plt Count 74 L D Neut % (Auto) 69 Lymph % (Auto) 20 [place] % (Auto) 10 Eos % (Auto) 0 Baso % (Auto) 0 Neut # (Auto) 1.9 Lymph # (Auto) 0.6 L [place] # (Auto) 0.3 Eos # (Auto) 0.0 Baso # (Auto) 0.0 Immature Gran # (Auto) 0.03 H Absolute Nucleated RBC 1.02 H Immature Gran % 1 H Nucleated RBC % 37 H PT 14.3 H INR 1.3 APTT 31.6 Sodium 142 Potassium 4.6 Chloride 107 Carbon Dioxide 23.2 Anion Gap 12 BUN 30 H Creatinine 1.1 Estim Creat Clear Calc Not Performed. eGFR 49 L BUN/Creatinine Ratio 27 H Glucose 95 Calculated Osmolality 289 Calcium 8.2 L Corrected Calcium 9.4 Phosphorus Magnesium 2.2 2.2 Total Bilirubin 1.1 AST 90 H ALT 24 Alkaline Phosphatase 99 Lactate Dehydrogenase 511 H Troponin I 0.520 H* B-Natriuretic Peptide 1420 H* Total Protein 7.4 Albumin 2.5 L Globulin 4.9 H Albumin/Globulin Ratio 0.5 L Procalcitonin 3.75 H Ur Collection Type Urine Color Urine Clarity Urine pH Ur Specific Ward Urine Protein Urine Glucose (UA) Urine Ketones Urine Blood Urine Nitrite Urine Bilirubin Urine Urobilinogen (Auto) Ur Leukocyte Esterase Urine RBC Urine WBC Ur Squamous Epith Cells Urine Bacteria Hyaline Casts Urine Opiates Screen Urine Fentanyl Screen Ur Barbiturates Screen U Amphetamin/Meth Scrn U Benzodiazepines Scrn U Cocaine Metab Screen U Marijuana (THC) Screen Influenza A (Rapid) Influenza B (Rapid) RSV Rapid Misc Test Result Platelets confirmed Blood Type Antibody Screen Crossmatch Blood Bank Wristband ID 10/06/24 10/06/24 10/06/24 01:30 04:57 06:59 WBC 2.5 L RBC 1.79 L* Hgb 6.8 L* Hct 20.7 L* MCV 116 H MCH 38.0 H MCHC 32.9 RDW Std Deviation 68.1 H Plt Count 68 L Neut % (Auto) 67 Lymph % (Auto) 19 [place] % (Auto) 13 H Eos % (Auto) 0 Baso % (Auto) 0 Neut # (Auto) 1.7 L Lymph # (Auto) 0.5 L [place] # (Auto) 0.3 Eos # (Auto) 0.0 Baso # (Auto) 0.0 Immature Gran # (Auto) 0.04 H Absolute Nucleated RBC 1.43 H Immature Gran % 2 H Nucleated RBC % 58 H PT INR APTT Sodium 144 Potassium 4.1 D Chloride 106 Carbon Dioxide 25.0 Anion Gap 13 BUN 30 H Creatinine 1.1 Estim Creat Clear Calc Not Performed. eGFR 49 L BUN/Creatinine Ratio 27 H Glucose 95 Calculated Osmolality 293 Calcium 8.1 L Corrected Calcium Phosphorus 3.7 Magnesium 2.2 Total Bilirubin AST ALT Alkaline Phosphatase Lactate Dehydrogenase Troponin I 0.367 H* B-Natriuretic Peptide Total Protein Albumin Globulin Albumin/Globulin Ratio Procalcitonin Ur Collection Type Clean Catch Urine Color Yellow Urine Clarity Clear Urine pH 6.0 Ur Specific [place] 1.015 Urine Protein 1+ A Urine Glucose (UA) Negative Urine Ketones Negative Urine Blood Negative Urine Nitrite Negative Urine Bilirubin Negative Urine Urobilinogen (Auto) Negative Ur Leukocyte Esterase Negative Urine RBC 2 Urine WBC 1 Ur Squamous Epith Cells < 1 Urine Bacteria None Hyaline Casts < 1 Urine Opiates Screen Negative Urine Fentanyl Screen Negative Ur Barbiturates Screen Negative U Amphetamin/Meth Scrn Negative U Benzodiazepines Scrn Negative U Cocaine Metab Screen Negative U Marijuana (THC) Screen Negative Influenza A (Rapid) Positive A Influenza B (Rapid) Negative RSV Rapid Negative Misc Test Result Platelets confirmed Blood Type A Positive Antibody Screen NEGATIVE Crossmatch See Detail Blood Bank Wristband ID Yes Quality Measures Quality Measures VTE prophylaxis (SCDs) Advance care planning discussed with:: child Assessment & Plan Assessment Current Active Medications: Generic Name Dose Route Start Last Admin Trade Name Freq PRN Reason Stop Dose Admin Acetaminophen 650 mg 10/05/24 21:24 Acetaminophen 325 Mg Tablet PO 11/04/24 21:23 Q6H PRN Fever >101.5 Diltiazem HCl 30 mg 10/05/24 22:00 10/06/24 05:35 Diltiazem 30 Mg Tablet PO 11/04/24 21:59 30 mg TID LAKESHA Administration Furosemide 40 mg 10/06/24 09:00 10/06/24 08:40 Furosemide Inj 10 Mg/Ml 4ml Vial IVP 11/05/24 08:59 40 mg QDAY LAKESHA Administration Azithromycin 500 mg/ Sodium 250 mls @ 250 mls/hr 10/05/24 21:26 10/05/24 23:33 Chloride IV 10/12/24 21:25 Infused DAILY@2100 LAKESHA Infusion Ceftriaxone Sodium/Dextrose 50 mls @ 100 mls/hr 10/05/24 21:00 10/05/24 22:37 Rocephin/D5w 1gm Iv Premix IV 10/12/24 20:59 Infused DAILY@2100 LAKESHA Infusion Mirtazapine 7.5 mg 10/06/24 21:00 Mirtazapine 15 Mg Tablet PO 11/05/24 20:59 HS LAKESHA Oseltamivir Phosphate 30 mg 10/06/24 09:00 Oseltamivir 30 Mg Capsule PO 10/10/24 09:01 DAILY LAKESHA Pantoprazole Sodium 40 mg 10/06/24 09:00 10/06/24 08:40 Pantoprazole Inj 40 Mg Vial IV 11/05/24 08:59 40 mg QDAY LAKESHA Administration Plan Patient is a Tagalog speaking 88-year-old female with a past medical history significant for gastric cancer status post partial gastrectomy currently on sunitinib malate and follows up with oncologist at [facility], chronic microcytic anemia, failure to thrive, pancytopenia, atrial fibrillation?paroxysmal not on anticoagulation and history of GI bleed presenting today with a chief complaint of a productive cough for the past week. Patient will be admitted for sepsis secondary to community-acquired pneumonia and new onset acute decompensated heart failure exacerbation. #Sepsis #Acute hypoxic respiratory failure -improving # Bilateral community-acquired pneumonia # Influenza A positive # SIRS 3/4 Patient presented with a chief complaint of a productive cough with past week. On imaging chest x-ray significant for bilateral pleural effusion, bibasilar consolidation and increased vascular congestion. Influenza A positive SIRS 3/4. Heart rate 127, respiration 26, WBC 2.7. Patient source of infection likely community-acquired pneumonia. She also has signs of end organ damage with an WILLIE. Curb 65 : 2 points; consider inpatient or outpatient treatment. PSI/PORT : 147 points ; hospitalization recommended based on risk Plan: ? Sputum culture and Gram stain ordered ? RSV ordered ? Started on ceftriaxone 1 g IV daily on [10/05? ? Started on azithromycin 500 Mg IV daily on [10/05? # Acute kidney injury prerenal versus renal Likely prerenal secondary to poor oral and G-tube intake. On admission CR 1.1. From chart review baseline CR 0.8 Plan: ? Patient received normal saline 500 cc IV fluid bolus ? Renally dose medications ? Avoid nephrotoxic agents # new onset acute decompensated heart failure exacerbation # NSTEMI type II-demand ischemia Patient had a chief complaint of nonproductive cough for the past week. On exam patient Crackles scattered throughout all lung torres as well as 2+ pitting edema up to her knees bilaterally. On imaging chest x-ray significant for bilateral pleural effusion, bibasilar consolidation and increased vascular congestion. BNP 1420, troponin 0.52 NSTEMI likely type II due to CHF exacerbation. Patient has no symptoms of ACS. Home diuretic Lasix 20 Mg p.o. daily. No echocardiogram seen on file and patient does not have a documented history of heart failure. Patient's daughter also denied any history of heart failure. Plan: ? Strict input/output charted ? 1500 cc/day fluid restriction ? 2 g salt restricted diet ? Daily weights ? Telemetry monitoring -Aspirin 81mg Qday ? Lasix 40 Mg IV daily ? Transthoracic echocardiogram ordered to assess for wall motion abnormalities, valvular defects and ejection fraction. ? cardiology consulted, appreciate recommendations # Atrial fibrillation?paroxysmal Patient had a history of atrial fibrillation on previous EKGs. On admission EKG significant for atrial fibrillation with RVR, rate 116. [id number]: 4 points; 6.7% stroke risk per year HAS-BLED : 2 points; moderate risk for bleeding Patient has history of GI bleed August 2024 therefore anticoagulation not pursued. Plan: ? Continue telemetry monitoring ? Started on diltiazem 30 Mg p.o. 3 times daily for rate control ? Anticoagulation contraindicated due to recent GI bleed ? Will maintain K >4 and Mg >2 at all times to avoid any further arrhythmias # History of gastric cancer status post partial gastrectomy on sunitinib malate # Failure to thrive status post PEG tube insertion # Chronic macrocytic anemia # Thrombocytopenia # Pancytopenia Patient has history of linitis plastica status post partial gastrectomy and currently on sunitinib, tyrosine inhibitor. She follows up with her oncologist at [facility]. Patient also has failure to thrive due to gastrectomy, poor oral intake and nutritional deficiencies. She had a PEG tube inserted August 2024 for adequate nutrition. Hb 7.4, MCV 117, WBC 2.7, PLT 74 Plan: ? resumed tube feedings per dietition recommendations along with oral diet as tolerated ? Monitor daily hemoglobin with CBC. -transfuse 2 units pRBC - Resumed home medication mirtazapine 7.5 Mg p.o. at bedtime ? Pantoprazole 40 Mg IV daily Health maintenance: Disposition: IV antibiotics, IV diuresis, ECHO Diet: GT feeds Lines: pIVs GI Prophylaxis: Pantoprazole Thrombo Prophylaxis: SCDs Code status: FULL CODE Assessment and plan discussed with my senior resident Dr. Palomino & attending physician Dr. Melissa Vu (PGY-1)- Internal medicine resident Attending Provider Attestation/Addendum I reviewed labs, imaging, EKG, home medications and prior available records. Face to face evaluation was performed by me. I have personally examined the patient and discussed assessment and plan with the IM team. I reviewed the resident note and agree with the plan with exceptions as below. Acute hypoxic respiratory failure Community-acquired pneumonia Influenza A Atrial fibrillation with controlled ventricular rhythm Non-STEMI Acute anemia Possible GI bleed Thrombocytopenia Possible new onset CHF, unclear EF Type 2 diabetes mellitus Wean off oxygen as tolerated Continue ceftriaxone/azithromycin Continue Tamiflu Troponin peaked. Consulted cardiology Obtain echocardiogram Empiric diuresis given the possible CHF Monitor CBC Ordered 2 PRBC. Started PPI. Consulted GI Monitor for bleeding
[2024-10-06] MEDS: OSELTAMIVIR 30 MG CAPSULE PO (11:46)
[2024-10-06 19:12] LABS: Hematocrit 32.2 % (36.0-46.0); Hemoglobin 10.9 g/dL (12.0-16.0)
[2024-10-06] MEDS: MIRTAZAPINE 15 MG TABLET 7.5 MG PO (22:15)
[2024-10-06] MEDS: METOPROLOL SUCCINATE XL 25 MG TABCR 50 MG PO (22:15)
[2024-10-06] MEDS: cefTRIAXone/D5w 1gm IV premix 50 ML IV (22:15)
[2024-10-06] MEDS: AZITHROMYCIN INJ 500 MG in SODIUM CHLORIDE 0.9% 250 ML 250 ML 250 MG IV (22:16)
[2024-10-07] VITALS (10 sets, daily range): BP systolic 110–144; BP diastolic 76–92; PULSE 72–99; RESP 12–23; TEMP 36.2–37.1; O2SAT 92–96
[2024-10-07 06:17] LABS: Basophils % (Auto) 1 % (0-2.5); Eosinophils % (Auto) 0 % (0-10); Monocytes # (Auto) 0.2 Thou/mm3 (0.0-0.8); Neutrophils # (Auto) 1.8 Thou/mm3 (1.8-7.7)
[2024-10-07 06:19] LABS: Hematocrit 34.1 % (36.0-46.0); Hemoglobin 11.8 g/dL (12.0-16.0); Immature Granulocytes % (Auto) 7 % (0-0); Lymphocytes # (Auto) 0.5 Thou/mm3 (1.0-4.8); Lymphocytes % (Auto) 17 % (10-50); Mean Corpuscular HGB Conc 34.6 g/dl (31.0-37.0); Mean Corpuscular Hemoglobin 33.2 pg (25.0-35.0); Mean Corpuscular Volume 96 fL (80-100); Monocytes % (Auto) 9 % (0-12); Nucleated Red Blood Cell # 1.76 Thou/mm3 (0.00-0.00); Nucleated Red Blood Cell % 65 /100 WBC (0); RDW Standard Deviation 81.5 fL (36.4-46.3); Red Blood Count 3.55 Miln/mm3 (4.00-5.20)
[2024-10-07 06:27] LABS: White Blood Count 2.7 Thou/mm3 (3.6-11.0)
[2024-10-07 06:28] LABS: Neutrophils % (Auto) 66 % (37-80); Platelet Count 46 Thou/mm3 (140-440)
[2024-10-07 06:37] LABS: Slide Review Platelets confirmed
[2024-10-07] MEDS: METOPROLOL SUCCINATE XL 25 MG TABCR 100 MG PO ×2 (08:52→20:46)
[2024-10-07] MEDS: FUROSEMIDE INJ 10 MG/ML 4ML VIAL 40 MG IVP (08:53)
[2024-10-07] MEDS: OSELTAMIVIR 30 MG CAPSULE PO (08:53)
[2024-10-07] MEDS: PANTOPRAZOLE INJ 40 MG VIAL IV (08:53)
[2024-10-07 09:02] LABS: Anion Gap 9 (7-16); BUN/Creatinine Ratio 32 Ratio (12-20); Blood Urea Nitrogen 35 mg/dL (9-23); Calcium 7.7 mg/dL (8.3-10.6); Carbon Dioxide 27.6 mMol/L (20.0-31.0); Chloride 107 mMol/L (98-107); Creatinine (Component) 1.1 mg/dL (0.6-1.3); Estimated Creatinine Clearance 23.2 mL/min (>60); Folate 19.97 ng/mL (>5.38); Glucose 149 mg/dL (74-106); Magnesium 2.1 mg/dL (1.6-2.6); Osmolality,Calculated 297 (275-295); Phosphorous 3.3 mg/dL (2.4-5.1); Potassium 3.8 mMol/L (3.4-5.1); Sodium 144 mMol/L (136-145); Vitamin B12 > 2000 pg/mL (211-911); eGFR 49 See Note
--- NOTE | 2024-10-07 09:45 | PC.SS ---
Late note 10-06-24: SS met with patient and dtr, Angie regarding patient's d/c plan. Pt is alert but confused. Pt was admitted for Pneumonia. Dtr confirmed demographic and contact information is correct on patient's facesheet. Pt resides with and grandkids. Pt ambulates independently without assistance or DME. Pt is ok with all ADLs. Pt is on 2 liters of O2. Pt does not utilizes O2 at home. Dt, Angie Harris is patient's medical decision maker if she is unable. SS provided verbal d/c options to home or SNF. Daughter's choice is to return home upon d/c. Pt has G-Tube. Dtr states pt is followed by [facility] and is requesting to continue with them. D/C plan: Return home with [facility] Next of Kin: Angie Harris, dtr, phone# [phone] PCP: Dr. Gopal Dawson Address: Correct on facesheet
--- NOTE | 2024-10-07 09:59 | XR_ITS ---
Examination: Ultrasound-guided right thoracentesis Ultrasound right hemithorax Ultrasound left hemithorax Exam date and time: October 07, 2024 1414 hours INDICATIONS: Bilateral pleural effusions on chest x-ray October 05, 2024 Technique an findings: Grayscale sonographic images right and left hemithoraces Significant bilateral pleural effusions Informed consent provided. Timeout performed. Skin prepped over the right hemithorax and sterile drape applied maximum sterile barrier technique hand hygiene ultrasound sterile technique 1% lidocaine administered for local anesthesia Utilizing ultrasonographic guidance 5 Mal[place] catheter placed in the right pleural space 650 cc pleural fluid removed Estimated blood loss 0 cc IMPRESSION: Successful ultrasound-guided right thoracentesis, 650 cc pleural fluid removed
--- NOTE | 2024-10-07 10:33 | PC.SS ---
Update: Patient receiving IV antibiotics. D/C plan is home. Patient is established with [facility].
--- NOTE | 2024-10-07 13:46 | PD.RESPRO ---
Documentation for date of: 10/07/24 Subjective Subjective Interval history: 10/07/2024: Patient examined at bedside today. No acute overnight events on telemetry. Patient still in atrial fibrillation, rate controlled. Patient reports she is doing well, not experiencing any chest pain or palpitations or shortness of breath. There is still continuing treatment for influenza with Tamiflu. Potassium and magnesium 3.8 and 2.1 respectively, creatinine 1.1. Patient's blood pressure is tolerating well with metoprolol 100 which was increased from 50 yesterday. We will continue with current management. Exam Vital Signs Temp Pulse Resp BP Pulse Ox O2 Del Method O2 Flow Rate 98.0 F 83 12 142/92 H 96 Nasal Cannula 1 10/07/24 08:00 10/07/24 12:00 10/07/24 08:00 10/07/24 08:53 10/07/24 08:00 10/07/24 08:00 10/07/24 08:00 Narrative Exam General: AAOx3, cachexia, temporal muscle wasting bilat, NAD, clavicles present with little to no muscle surrounding, weak and frail elderly woman HEENT: Dry mucous membranes, conjunctiva clear, EOMI, PERRLA, Cardiovascular: S1, S2, radial pulses +2 bilat, irregularly irregular Pulmonary: CTAB bilat no cough, no wheezing GI: No tenderness to light or deep palpitation, no guarding, rigidity, rebound tenderness or distension Extremities: No presence of trace or pitting edema in lower extremities bilaterally, dorsalis pedis pulses +2 bilaterally, little muscle definition in LE Neuro: AAOx3, no focal motor or sensory deficits in the UE or LE bilat Psych: Able to somewhat cooperate Objective Labs 10/07/24 05:29 10/07/24 08:05 Labs: Laboratory Results - last 24 hr 10/06/24 10/06/24 10/07/24 06:59 18:40 05:29 WBC 2.7 L RBC 3.55 L Hgb 10.9 L D 11.8 L Hct 32.2 L D 34.1 L MCV 96 MCH 33.2 MCHC 34.6 RDW Std Deviation 81.5 H Plt Count 46 L D Neut % (Auto) 66 Lymph % (Auto) 17 [place] % (Auto) 9 Eos % (Auto) 0 Baso % (Auto) 1 Neut # (Auto) 1.8 Lymph # (Auto) 0.5 L [place] # (Auto) 0.2 Eos # (Auto) 0.0 Baso # (Auto) 0.0 Immature Gran # (Auto) 0.20 H Absolute Nucleated RBC 1.76 H Immature Gran % 7 H Nucleated RBC % 65 H Sodium Potassium Chloride Carbon Dioxide Anion Gap BUN Creatinine Estim Creat Clear Calc eGFR BUN/Creatinine Ratio Glucose Calculated Osmolality Calcium Phosphorus Magnesium Vitamin B12 Folate Misc Test Result Platelets confirmed Crossmatch See Detail 10/07/24 08:05 WBC RBC Hgb Hct MCV MCH MCHC RDW Std Deviation Plt Count Neut % (Auto) Lymph % (Auto) [place] % (Auto) Eos % (Auto) Baso % (Auto) Neut # (Auto) Lymph # (Auto) [place] # (Auto) Eos # (Auto) Baso # (Auto) Immature Gran # (Auto) Absolute Nucleated RBC Immature Gran % Nucleated RBC % Sodium 144 Potassium 3.8 Chloride 107 Carbon Dioxide 27.6 Anion Gap 9 BUN 35 H Creatinine 1.1 Estim Creat Clear Calc 23.2 L eGFR 49 L BUN/Creatinine Ratio 32 H Glucose 149 H D Calculated Osmolality 297 H Calcium 7.7 L Phosphorus 3.3 Magnesium 2.1 Vitamin B12 > 2000 H Folate 19.97 Misc Test Result Crossmatch Quality Measures Quality Measures VTE prophylaxis (SCDs) Advance care planning discussed with:: patient Assessment & Plan Assessment Current Active Medications: Generic Name Dose Route Start Last Admin Trade Name Freq PRN Reason Stop Dose Admin Acetaminophen 650 mg 10/05/24 21:24 Acetaminophen 325 Mg Tablet PO 11/04/24 21:23 Q6H PRN Fever >101.5 Azithromycin 500 mg 10/07/24 21:00 Azithromycin 250 Mg Tablet PO 10/11/24 21:01 2100 LAKESHA Protocol Furosemide 40 mg 10/06/24 09:00 10/07/24 08:53 Furosemide Inj 10 Mg/Ml 4ml Vial IVP 11/05/24 08:59 40 mg QDAY LAKESHA Administration Ceftriaxone Sodium/Dextrose 50 mls @ 100 mls/hr 10/05/24 21:00 10/06/24 22:15 Rocephin/D5w 1gm Iv Premix IV 10/12/24 20:59 100 mls/hr DAILY@2100 LAKESHA Administration Metoprolol Succinate 100 mg 10/07/24 09:00 10/07/24 08:52 Metoprolol Succinate Xl 25 Mg Tabcr PO 11/06/24 08:59 100 mg HS LAKESHA Administration Mirtazapine 7.5 mg 10/06/24 21:00 10/06/24 22:15 Mirtazapine 15 Mg Tablet PO 11/05/24 20:59 7.5 mg HS LAKESHA Administration Oseltamivir Phosphate 30 mg 10/06/24 09:00 10/07/24 08:53 Oseltamivir 30 Mg Capsule PO 10/10/24 09:01 30 mg DAILY LAKESHA Administration Pantoprazole Sodium 40 mg 10/06/24 09:00 10/07/24 08:53 Pantoprazole Inj 40 Mg Vial IV 11/05/24 08:59 40 mg QDAY LAKESHA Administration Plan Assessment Stefani is a 88 y/o Tagalog speaking female with PMHx of gastric cancer (Diagnosed 2008), s/p partial gastrectomy (2008) (on Sunitinib malate, maintenance chemo, follows [facility] oncology, Dr. Hall?), chronic microcytic anemia, pancytopenia, failure to thrive, paroxysmal afib (not on A/C), hx of GI bleed, and gout who is currently admitted for afib with RVR likely secondary to influenza PNA. Admitted for mild failure of # Chronic paroxysmal A-fib with RVR [id number] HAS-BLED: 1, relatively low risk of major bleeding Rate controlled, EKG 116, irregularly irregular rhythm AC: Held in setting of GI bleed No documented history of heart failure Will need to see patient's heart function, however there is no contraindication at this time for beta-tye, will stop Cardizem 30 mg 3 times daily and resume beta-tye Patient likely went into A-fib with RVR due to having influenza pneumonia Plan: ?Continue with metoprolol 100 XL ?Keep magnesium and potassium above 2 and 4 respectively to avoid any arrhythmias ?Holding anticoagulation in setting of GI bleed ?Continuing treating infection #NSTEMI type II likely related to demand ischemia, resolved #? CHF #Pleural effusion Patient was started on diuresis Lasix 40 Checks x-ray does show some possible vascular congestion Clinically patient does not look like they have heart failure no JVD no edema in lower extremities not on oxygen BNP was in the ~1000 Patient home medicine takes Lasix 20 mg We will follow-up with echo Echo shows normal LV, EF 60 to 65%, diastolic dysfunction could not be determined due to A-fib, however patient likely has diastolic dysfunction. RVSP 40 mmHg, mild pulmonary arterial hypertension, severe LA dilatation Plan: ?Primary team to decide if patient needs to have thoracentesis ?As above ?Lasix 40 IV mg started by primary team # History of gastric cancer status post partial gastrectomy on sunitinib malate, 2008 # Failure to thrive status post PEG tube insertion Side effects of sunitinib include chest pain 13%, decreased left ventricular ejection fraction 11 to 60%, hypertension 15 to 39%, increased CK 49% and peripheral edema roughly 4% It may also increase QT Patient can tolerate p.o. but also has G-tube Plan: ?Continue with this medicine for patient's history ?Continue tube feeds #Chronic macrocytic anemia MCV ~110s Likely related to gastric cancer history and resection Was given 1 PRBC today Folate 20 (unremarkable); B12 over 1999 Plan: ?On Protonix 40 mg ?Transfusion protocol for hemoglobin below 7 #Sepsis #Acute hypoxic respiratory failure -improving # Bilateral community-acquired pneumonia # Influenza A positive # SIRS 3/4 # Acute kidney injury prerenal versus renal # new onset acute decompensated heart failure exacerbation # NSTEMI type II-demand ischemia # History of gastric cancer status post partial gastrectomy on sunitinib malate # Failure to thrive status post PEG tube insertion # Chronic macrocytic anemia # Thrombocytopenia # Pancytopenia Above managed by primary hospitalist team Patient seen and care discussed with my attending physician, Dr. Ruby Flanagan, PGY-1 Attending Provider Attestation/Addendum I reviewed the resident Dr. Rhodes consultation progress note and agree with the resident findings and plan in the note above and have also edited the documentation to reflect my findings and plan. Tino Beltran M.D. Interventional Cardiology
--- NOTE | 2024-10-07 14:34 | PC.SS ---
Rounding Note: Plan is for patient to obtain thoracentesis today. Patient receiving IV antibiotics. D/C within 1-2 days.
--- NOTE | 2024-10-07 14:36 | XR_ITS ---
Examination: AP chest single view Technique one AP portable sitting chest single view Exam date and time: October 07, 2024 at 1450 hours INDICATIONS: Post thoracentesis FINDINGS: No pneumothorax post thoracentesis Bilateral extensive pneumonia Mild enlargement cardiac contour Significant left pleural disease IMPRESSION: No pneumonia post thoracentesis
--- NOTE | 2024-10-07 15:24 | PC.SS ---
SS called transfer nurseImer who is aware pt will be d/c today and is requesting [facility].
[2024-10-07 16:00] LABS: Pleural Fluid WBC 56 /cmm
[2024-10-07 16:17] LABS: Glucose,Pleural Fluid 152 mg/dL; LDH,Pleural Fluid 159 IU/L; Protein Total,Pleural Fluid 2.7 g/dL
--- NOTE | 2024-10-07 16:29 | PD.RESPRO ---
Documentation for date of: 10/07/24 Senior resident attestation: Patient admitted overnight for WILLIE, pneumonia, secondary to flu A, A-fib, history of gastric cancer, chronic anemia, concern for new onset CHF, will order echo and a cardiac consult, mild troponin elevation, likely type II NSTEMI, continue with Emgality antibiotics and Tamiflu for influenza A as well as concern for possible superimposed bacterial pneumonia. Noted acute anemia due to GI bleed, likely lower GI secondary to hemorrhoids, blood transfusion ordered by overnight team. Ordered ultrasound-guided thoracentesis, 650 mL was drained from right chest, sent for analysis, postprocedure chest x-ray did not show a pneumothorax, will order another ultrasound thoracentesis for the left side tomorrow. Anticipate discharge tomorrow following procedure. Patient evaluated and examined at the bedside, plan of care discussed with rest of the team including my attending physician, except as noted. Quresh PGY2 Subjective Subjective Interval history: 10/07: No acute overnight events patient seen and examined at bedside and patient's daughter and granddaughter are also at bedside. Patient continues to have a productive cough chest x-ray show bilateral pleural effusions patient is status post right thoracentesis pleural fluid analysis is ordered with cytology. Patient has poor oral intake and PEG tube feedings are set at 45 mL/h with 20 mL of water flushes per hour. Patient is on 2 L of oxygen saturating well. Patient has chronic pancytopenia likely secondary to sunitinib malate. Patient has no other complaints patient will undergo left thoracentesis tomorrow. Exam Vital Signs Temp Pulse Resp BP Pulse Ox O2 Del Method O2 Flow Rate 98.0 F 83 12 142/92 H 96 Nasal Cannula 1 10/07/24 08:00 10/07/24 12:00 10/07/24 08:00 10/07/24 08:53 10/07/24 08:00 10/07/24 08:00 10/07/24 08:00 Narrative Exam GENERAL: Elderly cachectic female, awake, Not in acute distress NEURO: no focal neurological deficits HEENT: Atraumatic, Normocephalic. mucous membranes moist. Eyes open, symmetrical, & clear HEART: Normal Heart Sounds LUNGS:crackles bilaterally on auscultation ABDOMEN: soft, non-distended, non-tender, bowel sounds heard, no guarding or rebound tenderness, PEG tube site clean and does not appear infected SKIN: No Rash or ecchymoses EXTREMITIES: trace pitting edema up to knees bilaterally, no tenderness, able to move all 4 extremities, pedal pulses palpated Objective Labs 10/08/24 06:05 10/08/24 06:02 Labs: Laboratory Results - last 24 hr 10/06/24 10/06/24 10/07/24 06:59 18:40 05:29 WBC 2.7 L RBC 3.55 L Hgb 10.9 L D 11.8 L Hct 32.2 L D 34.1 L MCV 96 MCH 33.2 MCHC 34.6 RDW Std Deviation 81.5 H Plt Count 46 L D Neut % (Auto) 66 Lymph % (Auto) 17 [place] % (Auto) 9 Eos % (Auto) 0 Baso % (Auto) 1 Neut # (Auto) 1.8 Lymph # (Auto) 0.5 L [place] # (Auto) 0.2 Eos # (Auto) 0.0 Baso # (Auto) 0.0 Immature Gran # (Auto) 0.20 H Absolute Nucleated RBC 1.76 H Immature Gran % 7 H Nucleated RBC % 65 H Sodium Potassium Chloride Carbon Dioxide Anion Gap BUN Creatinine Estim Creat Clear Calc eGFR BUN/Creatinine Ratio Glucose Calculated Osmolality Calcium Phosphorus Magnesium Vitamin B12 Folate Pleural Total Protein Pleural LDH Pleural Glucose Misc Test Result Platelets confirmed Crossmatch See Detail 10/07/24 10/07/24 08:05 14:15 WBC RBC Hgb Hct MCV MCH MCHC RDW Std Deviation Plt Count Neut % (Auto) Lymph % (Auto) [place] % (Auto) Eos % (Auto) Baso % (Auto) Neut # (Auto) Lymph # (Auto) [place] # (Auto) Eos # (Auto) Baso # (Auto) Immature Gran # (Auto) Absolute Nucleated RBC Immature Gran % Nucleated RBC % Sodium 144 Potassium 3.8 Chloride 107 Carbon Dioxide 27.6 Anion Gap 9 BUN 35 H Creatinine 1.1 Estim Creat Clear Calc 23.2 L eGFR 49 L BUN/Creatinine Ratio 32 H Glucose 149 H D Calculated Osmolality 297 H Calcium 7.7 L Phosphorus 3.3 Magnesium 2.1 Vitamin B12 > 2000 H Folate 19.97 Pleural Total Protein 2.7 Pleural LDH 159 Pleural Glucose 152 Misc Test Result Crossmatch Quality Measures Quality Measures VTE prophylaxis (SCDs) Advance care planning discussed with:: patient and child Assessment & Plan Assessment Current Active Medications: Generic Name Dose Route Start Last Admin Trade Name Freq PRN Reason Stop Dose Admin Acetaminophen 650 mg 10/05/24 21:24 Acetaminophen 325 Mg Tablet PO 11/04/24 21:23 Q6H PRN Fever >101.5 Azithromycin 500 mg 10/07/24 21:00 Azithromycin 250 Mg Tablet PO 10/11/24 21:01 2100 LAKESHA Protocol Furosemide 40 mg 10/06/24 09:00 10/07/24 08:53 Furosemide Inj 10 Mg/Ml 4ml Vial IVP 11/05/24 08:59 40 mg QDAY LAKESHA Administration Ceftriaxone Sodium/Dextrose 50 mls @ 100 mls/hr 10/05/24 21:00 10/06/24 22:15 Rocephin/D5w 1gm Iv Premix IV 10/12/24 20:59 100 mls/hr DAILY@2100 LAKESHA Administration Metoprolol Succinate 100 mg 10/07/24 09:00 10/07/24 08:52 Metoprolol Succinate Xl 25 Mg Tabcr PO 11/06/24 08:59 100 mg HS LAKESHA Administration Mirtazapine 7.5 mg 10/06/24 21:00 10/06/24 22:15 Mirtazapine 15 Mg Tablet PO 11/05/24 20:59 7.5 mg HS LAKESHA Administration Oseltamivir Phosphate 30 mg 10/06/24 09:00 10/07/24 08:53 Oseltamivir 30 Mg Capsule PO 10/10/24 09:01 30 mg DAILY LAKESHA Administration Pantoprazole Sodium 40 mg 10/06/24 09:00 10/07/24 08:53 Pantoprazole Inj 40 Mg Vial IV 11/05/24 08:59 40 mg QDAY LAKESHA Administration Plan Patient is a Tagalog speaking 88-year-old female with a past medical history significant for gastric cancer status post partial gastrectomy currently on sunitinib malate and follows up with oncologist at [facility], chronic microcytic anemia, failure to thrive, pancytopenia, atrial fibrillation?paroxysmal not on anticoagulation and history of GI bleed presenting today with a chief complaint of a productive cough for the past week. Patient will be admitted for sepsis secondary to community-acquired pneumonia and new onset acute decompensated heart failure exacerbation. #Sepsis #Acute hypoxic respiratory failure -improving # Bilateral community-acquired pneumonia # Influenza A positive # Bilateral pleural effusions Patient presented with a chief complaint of a productive cough with past week. On imaging chest x-ray significant for bilateral pleural effusion, bibasilar consolidation and increased vascular congestion. Influenza A positive SIRS 3/4. Heart rate 127, respiration 26, WBC 2.7. Patient source of infection likely community-acquired pneumonia. She also has signs of end organ damage with an WILLIE. Curb 65 : 2 points; consider inpatient or outpatient treatment. PSI/PORT : 147 points ; hospitalization recommended based on risk Patient is status post right thoracentesis Plan: ? Sputum culture and Gram stain ordered ? RSV ordered ? Started on ceftriaxone 1 g IV daily on [10/05? ? Started on azithromycin 500 Mg IV daily on [10/05? -pleural fluid analysis and cytology is ordered -Patient will undergo left thoracentesis on 10/07 # Acute kidney injury prerenal versus renal Likely prerenal secondary to poor oral and G-tube intake. On admission CR 1.1. From chart review baseline CR 0.8 Plan: ? Patient received normal saline 500 cc IV fluid bolus on 10/06 ? Renally dose medications ? Avoid nephrotoxic agents # new onset acute decompensated heart failure exacerbation # NSTEMI type II-demand ischemia Patient had a chief complaint of nonproductive cough for the past week. On exam patient Crackles scattered throughout all lung torres as well as 2+ pitting edema up to her knees bilaterally. On imaging chest x-ray significant for bilateral pleural effusion, bibasilar consolidation and increased vascular congestion. BNP 1420, troponin 0.52 NSTEMI likely type II due to CHF exacerbation. Patient has no symptoms of ACS. Home diuretic Lasix 20 Mg p.o. daily Echocardiogram 10/05 - Estimated EF 60-65%. Diastolic dysfunction present cannot be estimated due to Afib. Plan: ? Strict input/output charted ? 1500 cc/day fluid restriction ? 2 g salt restricted diet ? Daily weights ? Telemetry monitoring -Aspirin 81mg Qday ? Lasix 40 Mg IV daily ? Transthoracic echocardiogram ordered to assess for wall motion abnormalities, valvular defects and ejection fraction. ? cardiology consulted, appreciate recommendations # Atrial fibrillation?paroxysmal Patient had a history of atrial fibrillation on previous EKGs. On admission EKG significant for atrial fibrillation with RVR, rate 116. [id number]: 4 points; 6.7% stroke risk per year HAS-BLED : 2 points; moderate risk for bleeding Patient has history of GI bleed August 2024 therefore anticoagulation not pursued. Plan: ? Continue telemetry monitoring ? Started on diltiazem 30 Mg p.o. 3 times daily for rate control ? Anticoagulation contraindicated due to recent GI bleed ? Will maintain K >4 and Mg >2 at all times to avoid any further arrhythmias # History of gastric cancer status post partial gastrectomy on sunitinib malate # Failure to thrive status post PEG tube insertion # Chronic macrocytic anemia # Thrombocytopenia # Pancytopenia Patient has history of linitis plastica status post partial gastrectomy and currently on sunitinib, tyrosine inhibitor. She follows up with her oncologist at [facility]. Patient also has failure to thrive due to gastrectomy, poor oral intake and nutritional deficiencies. She had a PEG tube inserted August 2024 for adequate nutrition. Hb 7.4, MCV 117, WBC 2.7, PLT 74 Plan: ? resumed tube feedings per dietition recommendations along with oral diet as tolerated ? Monitor daily hemoglobin with CBC. -transfuse 2 units pRBC - Resumed home medication mirtazapine 7.5 Mg p.o. at bedtime ? Pantoprazole 40 Mg IV daily Health maintenance: Disposition: IV antibiotics, IV diuresis, ECHO Diet: PEG tube feeds at 45 mL/h with 20 mL water flushes per hour Lines: pIVs GI Prophylaxis: Pantoprazole Thrombo Prophylaxis: SCDs Code status: FULL CODE Assessment and plan discussed with my senior resident Dr. Palomino & attending physician Dr. Kalin Vu (PGY-1)- Internal medicine resident Attending Provider Attestation/Addendum Morenita Brooke DO, attest that I was physically present for the cervantes portions of the service and evaluated the patient with the resident and I reviewed and discussed the case with the resident and agree with the resident's findings and plans of care as documented above Patient seen and evaluated this AM. Patient remains on 2L/NC and noted to have b/l pleural effusions. Family agreeable to US guided thoracoscentesis. Patient had 650 cc of pleural fluid removed this afternoon. Plan for thoracoscentesis of left effusion. Anticipate DC in next 24- 48h following thora
[2024-10-07 16:33] LABS: Pleural Fluid Appearance Clear; Pleural Fluid Color Yellow; Pleural Fluid Mononuclear 78 %; Pleural Fluid Polynuclear 22 %; Pleural Fluid RBC 98 /cmm
[2024-10-07] MEDS: MIRTAZAPINE 15 MG TABLET 7.5 MG PO (20:47)
[2024-10-07] MEDS: cefTRIAXone/D5w 1gm IV premix 50 ML IV (20:47)
[2024-10-07] MEDS: AZITHROMYCIN 250 MG TABLET 500 MG PO (20:47)
[2024-10-08] VITALS (8 sets, daily range): BP systolic 117–136; BP diastolic 64–87; PULSE 62–75; RESP 12–24; TEMP 36.2–37.1; O2SAT 96–98; BMI 17.4
[2024-10-08 06:43] LABS: Basophils % (Auto) 1 % (0-2.5); Eosinophils % (Auto) 0 % (0-10); Hematocrit 35.4 % (36.0-46.0); Hemoglobin 11.8 g/dL (12.0-16.0); Immature Granulocytes % (Auto) 4 % (0-0); Immature Granulocytes Auto 0.11 Thou/mm3 (0.00-0.00); Lymphocytes % (Auto) 38 % (10-50); Mean Corpuscular HGB Conc 33.3 g/dl (31.0-37.0); Mean Corpuscular Hemoglobin 32.9 pg (25.0-35.0); Mean Corpuscular Volume 99 fL (80-100); Monocytes # (Auto) 0.2 Thou/mm3 (0.0-0.8); Monocytes % (Auto) 9 % (0-12); Neutrophils # (Auto) 1.3 Thou/mm3 (1.8-7.7); Neutrophils % (Auto) 48 % (37-80); Nucleated Red Blood Cell # 3.05 Thou/mm3 (0.00-0.00); Nucleated Red Blood Cell % 112 /100 WBC (0); RDW Standard Deviation 82.5 fL (36.4-46.3); Red Blood Count 3.59 Miln/mm3 (4.00-5.20)
[2024-10-08 07:06] LABS: Anion Gap 8 (7-16); BUN/Creatinine Ratio 36 Ratio (12-20); Blood Urea Nitrogen 36 mg/dL (9-23); Calcium 7.4 mg/dL (8.3-10.6); Carbon Dioxide 28.7 mMol/L (20.0-31.0); Chloride 109 mMol/L (98-107); Estimated Creatinine Clearance 25.3 mL/min (>60); Glucose 120 mg/dL (74-106); Magnesium 1.8 mg/dL (1.6-2.6); Osmolality,Calculated 299 (275-295); Phosphorous 2.8 mg/dL (2.4-5.1); Potassium 3.8 mMol/L (3.4-5.1); Sodium 146 mMol/L (136-145); eGFR 55 See Note
[2024-10-08 07:09] LABS: Platelet Count 44 Thou/mm3 (140-440); White Blood Count 2.7 Thou/mm3 (3.6-11.0)
--- NOTE | 2024-10-08 07:37 | XR_ITS ---
Examination: Ultrasound-guided left thoracentesis Ultrasound left hemithorax Exam date and time: Generally 2024 1447 hours INDICATIONS: Difficulty breathing this week, bilateral pleural effusions on chest x-ray yesterday TECHNIQUE AND FINDINGS: Grayscale sonographic images left hemithorax demonstrate large left pleural effusion Informed consent provided. Timeout performed. Skin prepped over the left hemithorax and sterile drape applied hand hygiene ultrasound sterile technique 1% lidocaine administered for local anesthesia Utilizing ultrasonographic guidance 5 [place] catheter placed in the left pleural space 660 cc pleural fluid removed Estimated blood loss 0 cc IMPRESSION: Successful ultrasound-guided left thoracentesis, 660 cc pleural fluid removed
[2024-10-08] MEDS: FUROSEMIDE INJ 10 MG/ML 4ML VIAL 40 MG IVP (08:40)
[2024-10-08] MEDS: PANTOPRAZOLE INJ 40 MG VIAL IV (08:40)
[2024-10-08] MEDS: POTASSIUM CHL 10 mEq IVPB 10 MEQ/100 ML BAG 60 MEQ IV (08:41)
[2024-10-08] MEDS: Magnesium Sulfate 1 gm Ivpb 1 GM/100 ML BAG IV (08:41)
[2024-10-08] MEDS: OSELTAMIVIR 30 MG CAPSULE PO (08:41)
--- NOTE | 2024-10-08 10:12 | PC.SS ---
Update: Patient pending ultrasound and thoracentesis. Blood cultures are pending.
[2024-10-08 10:28] LABS: LDH (Lactate Dehydrogenase) 516 U/L (120-246)
[2024-10-08 12:30] LABS: Slide Review Platelets confirmed
[2024-10-08] MEDS: POTASSIUM CHL 10 mEq IVPB 10 MEQ/100 ML BAG 50 MEQ IV (12:36)
--- NOTE | 2024-10-08 13:13 | PD.RESPRO ---
Documentation for date of: 10/08/24 Subjective Subjective Interval history: 10/07/2024: Patient examined at bedside today. No acute overnight events on telemetry. Patient still in atrial fibrillation, rate controlled. Patient reports she is doing well, not experiencing any chest pain or palpitations or shortness of breath. There is still continuing treatment for influenza with Tamiflu. Potassium and magnesium 3.8 and 2.1 respectively, creatinine 1.1. Patient's blood pressure is tolerating well with metoprolol 100 which was increased from 50 yesterday. We will continue with current management. 10/08/2024: Patient examined at bedside today. On telemetry, patient has returned to normal sinus rhythm, rate in the 60s. Patient reports she is doing well, was able to tolerate the thoracentesis today and will get another 1 today. She is still being treated for influenza A with Tamiflu. Magnesium 1.8 and potassium 3.8, given potassium 2.9 mEq and magnesium as well. Patient 9 creatinine 1 up to 36 and 1.0 respectively, will stop diuresing. Patient's hemoglobin stable 11.8. Paracentesis results show results likely indicative of transudative effusion related to infection. Exam Vital Signs Temp Pulse Resp BP Pulse Ox O2 Del Method O2 Flow Rate 98.6 F 68 13 135/81 H 96 Nasal Cannula 1 10/08/24 08:00 10/08/24 08:40 10/08/24 08:00 10/08/24 08:40 10/08/24 08:00 10/08/24 08:00 10/08/24 08:00 Narrative Exam General: AAOx3, cachexia, temporal muscle wasting bilat, NAD, clavicles present with little to no muscle surrounding, weak and frail elderly woman HEENT: Dry mucous membranes, conjunctiva clear, EOMI, PERRLA, Cardiovascular: S1, S2, radial pulses +2 bilat, regular rhythm and rate Pulmonary: CTAB bilat no cough, no wheezing GI: No tenderness to light or deep palpitation, no guarding, rigidity, rebound tenderness or distension Extremities: No presence of trace or pitting edema in lower extremities bilaterally, dorsalis pedis pulses +2 bilaterally, little muscle definition in LE Neuro: AAOx3, no focal motor or sensory deficits in the UE or LE bilat Psych: Able to somewhat cooperate Objective Labs 10/08/24 06:05 10/08/24 06:02 Labs: Laboratory Results - last 24 hr 10/07/24 10/08/24 10/08/24 14:15 06:02 06:05 WBC 2.7 L RBC 3.59 L Hgb 11.8 L Hct 35.4 L MCV 99 MCH 32.9 MCHC 33.3 RDW Std Deviation 82.5 H Plt Count 44 L Neut % (Auto) 48 Lymph % (Auto) 38 [place] % (Auto) 9 Eos % (Auto) 0 Baso % (Auto) 1 Neut # (Auto) 1.3 L Lymph # (Auto) 1.0 [place] # (Auto) 0.2 Eos # (Auto) 0.0 Baso # (Auto) 0.0 Immature Gran # (Auto) 0.11 H Absolute Nucleated RBC 3.05 H Immature Gran % 4 H Nucleated RBC % 112 H Sodium 146 H Potassium 3.8 Chloride 109 H Carbon Dioxide 28.7 Anion Gap 8 BUN 36 H Creatinine 1.0 Estim Creat Clear Calc 25.3 L eGFR 55 L BUN/Creatinine Ratio 36 H Glucose 120 H Calculated Osmolality 299 H Calcium 7.4 L Phosphorus 2.8 Magnesium 1.8 Lactate Dehydrogenase 516 H Pleural Color Yellow Pleural Appearance Clear Pleural WBC 56 Pleural RBC 98 Pleural Polynuclear WBC 22 Pleural Mononuclear WBC 78 Pleural Total Protein 2.7 Pleural LDH 159 Pleural Glucose 152 Misc Test Result Platelets confirmed Quality Measures Quality Measures VTE prophylaxis (SCDs) Advance care planning discussed with:: patient Assessment & Plan Assessment Current Active Medications: Generic Name Dose Route Start Last Admin Trade Name Freq PRN Reason Stop Dose Admin Acetaminophen 650 mg 10/05/24 21:24 Acetaminophen 325 Mg Tablet PO 11/04/24 21:23 Q6H PRN Fever >101.5 Azithromycin 500 mg 10/07/24 21:00 10/07/24 20:47 Azithromycin 250 Mg Tablet PO 10/11/24 21:01 500 mg 2100 LAKESHA Administration Protocol Furosemide 40 mg 10/06/24 09:00 10/08/24 08:40 Furosemide Inj 10 Mg/Ml 4ml Vial IVP 11/05/24 08:59 40 mg QDAY LAKESHA Administration Ceftriaxone Sodium/Dextrose 50 mls @ 100 mls/hr 10/05/24 21:00 10/07/24 21:17 Rocephin/D5w 1gm Iv Premix IV 10/12/24 20:59 Infused DAILY@2100 LAKESHA Infusion Metoprolol Succinate 100 mg 10/07/24 09:00 10/07/24 20:46 Metoprolol Succinate Xl 25 Mg Tabcr PO 11/06/24 08:59 100 mg HS LAKESHA Administration Mirtazapine 7.5 mg 10/06/24 21:00 10/07/24 20:47 Mirtazapine 15 Mg Tablet PO 11/05/24 20:59 7.5 mg HS LAKESHA Administration Oseltamivir Phosphate 30 mg 10/06/24 09:00 10/08/24 08:41 Oseltamivir 30 Mg Capsule PO 10/10/24 09:01 30 mg DAILY LAKESHA Administration Pantoprazole Sodium 40 mg 10/06/24 09:00 10/08/24 08:40 Pantoprazole Inj 40 Mg Vial IV 11/05/24 08:59 40 mg QDAY LAKESHA Administration Plan Assessment Stefani is a 88 y/o Tagalog speaking female with PMHx of gastric cancer (Diagnosed 2008), s/p partial gastrectomy (2008) (on Sunitinib malate, maintenance chemo, follows [facility] oncology, Dr. Hall?), chronic microcytic anemia, pancytopenia, failure to thrive, paroxysmal afib (not on A/C), hx of GI bleed, and gout who is currently admitted for afib with RVR likely secondary to influenza PNA. Admitted for mild failure of # Chronic paroxysmal A-fib with RVR [id number] HAS-BLED: 1, relatively low risk of major bleeding Rate controlled, EKG 116, irregularly irregular rhythm AC: Held in setting of GI bleed No documented history of heart failure Will need to see patient's heart function, however there is no contraindication at this time for beta-tye, will stop Cardizem 30 mg 3 times daily and resume beta-tye Patient likely went into A-fib with RVR due to having influenza pneumonia Patient has returned to normal sinus rhythm, rate controlled in the 60s, patient improved after thoracentesis, electrolyte repletion and treatment for a little Plan: ?Continue with metoprolol 100 XL ?Keep magnesium and potassium above 2 and 4 respectively to avoid any arrhythmias ?Holding anticoagulation in setting of GI bleed ?Continuing treating infection #NSTEMI type II likely related to demand ischemia, resolved # HFrEF with diastolic dysfunction, EF 60 to 65%, with severe LA dilatation #Pleural effusion Patient was started on diuresis Lasix 40 Checks x-ray does show some possible vascular congestion Clinically patient does not look like they have heart failure no JVD no edema in lower extremities not on oxygen BNP was in the ~1000 Patient home medicine takes Lasix 20 mg We will follow-up with echo Echo shows normal LV, EF 60 to 65%, diastolic dysfunction could not be determined due to A-fib, however patient likely has diastolic dysfunction. RVSP 40 mmHg, mild pulmonary arterial hypertension, severe LA dilatation Patient to get additional thoracentesis today Thoracentesis from yesterday results show transudative effusion, will follow-up with him next thoracentesis I received information as patient's BUN has risen to 36 today. Plan: ? Thoracentesis today ?As above ? Stop Lasix 40 mg IV # History of gastric cancer status post partial gastrectomy on sunitinib malate, 2008 # Failure to thrive status post PEG tube insertion Side effects of sunitinib include chest pain 13%, decreased left ventricular ejection fraction 11 to 60%, hypertension 15 to 39%, increased CK 49% and peripheral edema roughly 4% It may also increase QT Patient can tolerate p.o. but also has G-tube Plan: ?Continue with this medicine for patient's history ?Continue tube feeds #Chronic macrocytic anemia MCV ~110s Likely related to gastric cancer history and resection Was given 1 PRBC today Folate 20 (unremarkable); B12 over 1999 Plan: ?On Protonix 40 mg ?Transfusion protocol for hemoglobin below 7 #Sepsis #Acute hypoxic respiratory failure -improving # Bilateral community-acquired pneumonia # Influenza A positive # SIRS 3/4 # Acute kidney injury prerenal versus renal # new onset acute decompensated heart failure exacerbation # NSTEMI type II-demand ischemia # History of gastric cancer status post partial gastrectomy on sunitinib malate # Failure to thrive status post PEG tube insertion # Chronic macrocytic anemia # Thrombocytopenia # Pancytopenia Above managed by primary hospitalist team Patient seen and care discussed with my attending physician, Dr. Ruby Flanagan, PGY-1 Attending Provider Attestation/Addendum I have personally seen and examined the patient separately on the above date of service and discussed the plan of care with the resident. I reviewed the resident Dr. Rhodes consultation progress note and agree with the resident findings and plan in the note above and have also edited the documentation to reflect my findings and plan. Tino Beltran M.D. Interventional Cardiology
--- NOTE | 2024-10-08 15:02 | XR_ITS ---
Examination: AP chest single view Technique one AP upright chest portable single view Exam date and time: 2024 1513 hours Comparison October 07, 2024 1450 hours INDICATIONS: Postthoracentesis. FINDINGS: No pneumothorax post thoracentesis Bilateral areas of parenchymal disease Mild prominence left ventricle IMPRESSION: No pneumothorax post thoracentesis
--- NOTE | 2024-10-08 17:43 | ESDS_ITS ---
<Statement entered by Morenita Gagnon DO - 10/09/24 12:49> I, Morenita aGgnon DO, attest that I was physically present for the cervantes portions of the service and evaluated the patient with the resident and I reviewed and discussed the case with the resident and agree with the resident's findings and plans of care as documented above Planned Discharge Date 10/08/24 DS: Providers Provider Date of admission: 10/05/24 21:24 Primary care physician: Gopal Dawson MD Admitting Provider: Taqueria Kong MD Attending Provider on Admission: Morenita Gagnon DO Consults: 10/05/24 21:25 Referral Nutritional Services Stat Comment: 10/05/24 22:08 Referral Registered Dietitian Urgent Comment: For GT feeds 10/06/24 08:09 Consult to Cardiology Stat Comment: Consulting Provider: Tino Beltran 10/08/24 10:39 Referral Physical Therapy Routine Comment: Physician Instructions: Attending Provider on DC: Chilo Vu MD Discharging Provider: Chilo Vu MD DS: Diagnosis Problem List Completed Was Problem List Reviewed/Reconciled?: Yes Hospital Course Hospital Course Hospital course: Ms. Harris is a Tagalog speaking 88-year-old female with a past medical history significant for gastric cancer status post partial gastrectomy currently on sunitinib malate and follows up with oncologist at [facility], chronic microcytic anemia, failure to thrive, pancytopenia, atrial fibrillation?paroxysmal not on anticoagulation and history of GI bleed presented to [facility] ED on 10/05/24 after her oncologist at [facility] revealed her hemoglobin to be 6.5 on routine labs and advised the patient to return to the [facility] ED for blood transfusions. Patient was transfused 2 units of PRBCs . patient also had productive cough for the past week and recent sick contact. Patient tested positive for influenza A, and chest x-ray revealed bilateral pneumonia with bilateral pleural effusions. patient was started on Tamiflu, ceftriaxone, and azithromycin and underwent right and left thoracentesis removing total of approximately 1300 cc of fluid. Patient is hemodynamically stable to be discharged home with home health. Images Chest x-rays- Prominent bibasilar pneumonia, Mild associated heart failure with mild enlargement cardiac contour and, prominent vascular congestion, Moderate osteopenia, pleural effusions EKG-A-fib with RVR Echocardiogram- Normal LV size and function. Estimated EF 60-65%. Diastolic dysfunction present cannot be estimated due to Afib. Chest x-rays post thoracentesis- No pneumothorax post thoracentesis Discharge Recommendations Recommend continuing Tamiflu for 3 more days for treatment of flu. Recommend continuing antibiotic azithromycin for 3 more days for treatment of pneumonia. You are being discharged on metoprolol succinate 100 mg/day for better heart rate control, as discussed during hospital stay due to concern for GI bleeding, family chooses to decline anticoagulation. Recommend following up with manager hris within 1 to 2 weeks of discharge from hospital for evaluation. In case of worsening symptoms, please return to the emergency room. Hospitalization Diagnosis #Sepsis #Acute hypoxic respiratory failure -improving # Bilateral community-acquired pneumonia # Influenza A positive # Bilateral pleural effusions #Symptomatic Macrocytic Anemia #GI bleed #Failure to thrive #Cachexia #History of gastric cancer. #Pancytopenia. #Hypokalemia- resolved # new onset acute decompensated heart failure exacerbation #Atrial fibrillation,with RVR #NSTEMI type II, demand ischemia Assessment and plan discussed with my attending physician Dr. Kalin Vu (PGY-1)- Internal medicine resident Time Spent with Patient Time attestation: Total time spent providing and/or coordinating discharge services: >30 min Home Health Home Health Referral Orders: 10/07/24 14:13 Home Health Referral Routine Reason For Exam: failure to thrive Home-Bound The patient must either because of illness or injury, need the aid of supportive devices such as crutches, canes, wheelchairs, and walkers; the use of special transportation; or the assistance of another person in order to leave their place of residence; OR have a condition such that leaving his or her home is medically contraindicated. In addition, the patient also meets the following criteria: patient is normally unable to leave the home and leaving home requires considerable taxing effort. Addendum to Home Health Certification Practitioner's Certification: I certify that the patient has been under my care in the hospital and the care of attending physician (see below). We had a auqe-as-ecld encounter on (see date below). My clinical findings indicate that the patient is home bound per the above criteria and the Home Health Services noted in these orders are medically necessary. The primary reason for the [id number]-[id number] encounter is related to the fact that the patient requires home health services. Date Certifying Ubij-gw-Kisl Physician Encounter: 10/05/24 Physician's Name who will Assume Oversight for Services: Gopal Dawson Physician's Phone No.who will Assume Oversight for Service: RABBET OPERATOR - Community Resources: No PT to Evaluate: No PT to evaluate and provide a treatmnet plan to increase patient's mobility and strength. Wound Care: No IV Therapy: No RN Safety Evaluation: Yes RN to evaluate and create a plan of care that will produce positive outcomes. Palliative Treatment: No Palliative treatment and evaluate the need for hospice. Home Health Aide - Personal Care: Yes Home Health Aide to assist with any ADL's. Exam Vital Signs Temp Pulse Resp BP Pulse Ox O2 Del Method O2 Flow Rate 97.3 F 70 20 136/87 H 96 Nasal Cannula 1 10/08/24 16:00 10/08/24 16:00 10/08/24 16:00 10/08/24 16:00 10/08/24 16:10/08/24 16:00 10/08/24 16:00 Narrative Exam GENERAL: Elderly cachectic female, awake, Not in acute distress NEURO: no focal neurological deficits HEENT: Atraumatic, Normocephalic. mucous membranes moist. Eyes open, symmetrical, & clear HEART: Normal Heart Sounds LUNGS:clear breath sounds bilaterally on auscultation ABDOMEN: soft, non-distended, non-tender, bowel sounds heard, no guarding or rebound tenderness, PEG tube site clean and does not appear infected SKIN: No Rash or ecchymoses EXTREMITIES: trace pitting edema up to knees bilaterally, no tenderness, able to move all 4 extremities, pedal pulses palpated Discharge Plan Plan Patient Disposition: Home w/HOME HEALTH Patient condition on transfer: Stable Care Plan Goals: Recommend continuing Tamiflu for 3 more days for treatment of flu. Recommend continuing antibiotic azithromycin for 3 more days for treatment of pneumonia. You are being discharged on metoprolol succinate 100 mg/day for better heart rate control, as discussed during hospital stay due to concern for GI bleeding, family chooses to decline anticoagulation. Recommend following up with manager hris within 1 to 2 weeks of discharge from hospital for evaluation. In case of worsening symptoms, please return to the emergency room. Prescriptions/Referrals Prescriptions/Med Rec: New azithromycin 500 mg tablet 500 mg PO 2100 3 Days Qty: 3 0RF metoprolol succinate 100 mg tablet extended release 24 hr 100 mg PO HS 30 Days Qty: 30 0RF oseltamivir 30 mg Capsule 30 mg PO DAILY 3 Days Qty: 3 0RF Continued allopurinol [Zyloprim] 100 mg tablet 100 mg PO DAILY Patient Comments: TAKE 1 TABLET BY MOUTH ONCE DAILY FOR HIGH URIC ACID sunitinib malate 25 mg capsule 25 mg PO DAILY Referrals: Tino Beltran MD [Physician] - Gopal Dawson MD [Primary Care Provider] - Patient/Caregiver Discharge Instructions Education Materials: Thoracentesis Dc Print Language: [place] Stand Alone Forms: Thalia Award Info., Patient Portal Info Letter Discharge Order Discharge Orders: Discharge (Routine); Ordered 10/08/24 Ordered By: Moose Palomino Quality Discharge Quality Measures none
--- NOTE | 2024-10-08 18:38 | PC.NURSE ---
Patient family was notified regarding patient discharge. They stated that they wouldn't be able to pick her up until tomorrow morning 10/09/2024.
[2024-10-08] MEDS: AZITHROMYCIN 250 MG TABLET 500 MG PO (20:27)
[2024-10-08] MEDS: MIRTAZAPINE 15 MG TABLET 7.5 MG PO (20:27)
[2024-10-08] MEDS: cefTRIAXone/D5w 1gm IV premix 50 ML IV (20:27)
[2024-10-08] MEDS: METOPROLOL SUCCINATE XL 25 MG TABCR 100 MG PO (20:27)
[2024-10-09] VITALS: BP 123/73; PULSE 63; PULSE 74; RESP 21; TEMP 36.4; O2SAT 97
[2024-10-09 04:00] VITALS: BP 117/67; PULSE 61; PULSE 62; RESP 19; TEMP 36.4; O2SAT 99
[2024-10-09 06:00] VITALS: BMI 19.8
[2024-10-09 08:00] VITALS: BP 126/71; PULSE 58; PULSE 64; RESP 18; TEMP 36.2; O2SAT 97
--- NOTE | 2024-10-09 08:30 | EKG_ITS ---
[facility] Test Date: 2024-10-09 Pat Name: JACOBO MCNEAL [facility] Gender: Female Bicycle Courier: AVANI : 1935 Requested By: Meagan Flanagan Order Number: [id number] Reading MD: Meagan Flanagan Measurements Intervals [place] Rate: 65 P: 50 MT: 189 QRS: -10 QRSD: 68 T: 154 QT: 396 QTc: 414 Interpretive Statements SINUS RHYTHM WITH OCCASIONAL SUPRAVENTRICULAR PREMATURE COMPLEXES MODERATE T-WAVE ABNORMALITY, CONSIDER ANTERIOR ISCHEMIA Compared to ECG 10/05/2024 19:46:03 T-wave abnormality now present Possible ischemia now present Atrial fibrillation no longer present Ventricular premature complex(es) no longer present Aberrant conduction of supraventricular beat(s) no longer present /store/S0/[id number].pdf
[2024-10-09] MEDS: PANTOPRAZOLE INJ 40 MG VIAL IV (09:49)
--- NOTE | 2024-10-09 10:03 | PD.RESPRO ---
Documentation for date of: 10/09/24 Subjective Subjective Interval history: 10/07/2024: Patient examined at bedside today. No acute overnight events on telemetry. Patient still in atrial fibrillation, rate controlled. Patient reports she is doing well, not experiencing any chest pain or palpitations or shortness of breath. There is still continuing treatment for influenza with Tamiflu. Potassium and magnesium 3.8 and 2.1 respectively, creatinine 1.1. Patient's blood pressure is tolerating well with metoprolol 100 which was increased from 50 yesterday. We will continue with current management. 10/08/2024: Patient examined at bedside today. On telemetry, patient has returned to normal sinus rhythm, rate in the 60s. Patient reports she is doing well, was able to tolerate the thoracentesis today and will get another 1 today. She is still being treated for influenza A with Tamiflu. Magnesium 1.8 and potassium 3.8, given potassium 2.9 mEq and magnesium as well. Patient 9 creatinine 1 up to 36 and 1.0 respectively, will stop diuresing. Patient's hemoglobin stable 11.8. Paracentesis results show results likely indicative of transudative effusion related to infection. 10/09/2024: Pt examined at bedside today. Patient remains to be NSR, rate in the 60s. Patient reports she is doing well, is not experiencing any shortness of breath or chest pain. Patient was post be discharged tomorrow however has not been discharged just yet. No labs were drawn on patient. Patient's blood pressure is 117/67. Patient tolerating metoprolol 100 XL well. No other complaints at this time Exam Vital Signs Temp Pulse Resp BP Pulse Ox O2 Del Method O2 Flow Rate 97.1 F 64 18 126/71 97 Nasal Cannula 1 10/09/24 08:00 10/09/24 08:00 10/09/24 08:00 10/09/24 08:00 10/09/24 08:00 10/09/24 08:00 10/09/24 08:00 Narrative Exam General: AAOx3, cachexia, temporal muscle wasting bilat, NAD, clavicles present with little to no muscle surrounding, weak and frail elderly woman HEENT: Dry mucous membranes, conjunctiva clear, EOMI, PERRLA, Cardiovascular: S1, S2, radial pulses +2 bilat, regular rhythm and rate Pulmonary: CTAB bilat no cough, no wheezing GI: No tenderness to light or deep palpitation, no guarding, rigidity, rebound tenderness or distension Extremities: No presence of trace or pitting edema in lower extremities bilaterally, dorsalis pedis pulses +2 bilaterally, little muscle definition in LE Neuro: AAOx3, no focal motor or sensory deficits in the UE or LE bilat Psych: Able to somewhat cooperate Objective Labs 10/08/24 06:05 10/08/24 06:02 Labs: Laboratory Results - last 24 hr 10/08/24 10/08/24 06:02 06:05 Lactate Dehydrogenase 516 H Misc Test Result Platelets confirmed Quality Measures Quality Measures none Advance care planning discussed with:: patient Assessment & Plan Assessment Current Active Medications: Generic Name Dose Route Start Last Admin Trade Name Freq PRN Reason Stop Dose Admin Acetaminophen 650 mg 10/05/24 21:24 Acetaminophen 325 Mg Tablet PO 11/04/24 21:23 Q6H PRN Fever >101.5 Azithromycin 500 mg 10/07/24 21:00 10/08/24 20:27 Azithromycin 250 Mg Tablet PO 10/11/24 21:01 500 mg 2100 LAKESHA Administration Protocol Ceftriaxone Sodium/Dextrose 50 mls @ 100 mls/hr 10/05/24 21:00 10/08/24 20:27 Rocephin/D5w 1gm Iv Premix IV 10/12/24 20:59 100 mls/hr DAILY@2100 LAKESHA Administration Metoprolol Succinate 100 mg 10/07/24 09:00 10/08/24 20:27 Metoprolol Succinate Xl 25 Mg Tabcr PO 11/06/24 08:59 100 mg HS LAKESHA Administration Mirtazapine 7.5 mg 10/06/24 21:00 10/08/24 20:27 Mirtazapine 15 Mg Tablet PO 11/05/24 20:59 7.5 mg HS LAKESHA Administration Oseltamivir Phosphate 30 mg 10/06/24 09:00 10/08/24 08:41 Oseltamivir 30 Mg Capsule PO 10/10/24 09:01 30 mg DAILY LAKESHA Administration Pantoprazole Sodium 40 mg 10/06/24 09:00 10/09/24 09:49 Pantoprazole Inj 40 Mg Vial IV 11/05/24 08:59 40 mg QDAY LAKESHA Administration Plan Assessment Stefani is a 88 y/o Tagalog speaking female with PMHx of gastric cancer (Diagnosed 2008), s/p partial gastrectomy (2008) (on Sunitinib malate, maintenance chemo, follows [facility] oncology, Dr. Hall?), chronic microcytic anemia, pancytopenia, failure to thrive, paroxysmal afib (not on A/C), hx of GI bleed, and gout who is currently admitted for afib with RVR likely secondary to influenza PNA. Admitted for mild failure of # Chronic paroxysmal A-fib with RVR [id number] HAS-BLED: 1, relatively low risk of major bleeding Rate controlled, EKG 116, irregularly irregular rhythm AC: Held in setting of GI bleed No documented history of heart failure Will need to see patient's heart function, however there is no contraindication at this time for beta-tye, will stop Cardizem 30 mg 3 times daily and resume beta-tye Patient likely went into A-fib with RVR due to having influenza pneumonia Patient has returned to normal sinus rhythm, rate controlled in the 60s, patient improved after thoracentesis, electrolyte repletion and treatment for a little Plan: ?Continue with metoprolol 100 XL ?Keep magnesium and potassium above 2 and 4 respectively to avoid any arrhythmias ?Holding anticoagulation in setting of GI bleed ?Continuing treating infection #NSTEMI type II likely related to demand ischemia, resolved # HFrEF with diastolic dysfunction, EF 60 to 65%, with severe LA dilatation #Pleural effusion s/p thoracentesis x2 #Transudative pleural effusion Patient was started on diuresis Lasix 40 Checks x-ray does show some possible vascular congestion Clinically patient does not look like they have heart failure no JVD no edema in lower extremities not on oxygen BNP was in the ~1000 Patient home medicine takes Lasix 20 mg We will follow-up with echo Echo shows normal LV, EF 60 to 65%, diastolic dysfunction could not be determined due to A-fib, however patient likely has diastolic dysfunction. RVSP 40 mmHg, mild pulmonary arterial hypertension, severe LA dilatation Thoracentesis from yesterday results show transudative effusion, w I received information as patient's BUN has risen to 36 today. Plan: ?Follow up pleural fluid results ?As above # History of gastric cancer status post partial gastrectomy on sunitinib malate, 2008 # Failure to thrive status post PEG tube insertion Side effects of sunitinib include chest pain 13%, decreased left ventricular ejection fraction 11 to 60%, hypertension 15 to 39%, increased CK 49% and peripheral edema roughly 4% It may also increase QT Patient can tolerate p.o. but also has G-tube Plan: ?Continue with this medicine for patient's history ?Continue tube feeds #Chronic macrocytic anemia MCV ~110s Likely related to gastric cancer history and resection Was given 1 PRBC today Folate 20 (unremarkable); B12 over 1999 Plan: ?On Protonix 40 mg ?Transfusion protocol for hemoglobin below 7 #Sepsis #Acute hypoxic respiratory failure -improving # Bilateral community-acquired pneumonia # Influenza A positive # SIRS 3/4 # Acute kidney injury prerenal versus renal # new onset acute decompensated heart failure exacerbation # NSTEMI type II-demand ischemia # History of gastric cancer status post partial gastrectomy on sunitinib malate # Failure to thrive status post PEG tube insertion # Chronic macrocytic anemia # Thrombocytopenia # Pancytopenia Above managed by primary hospitalist team Patient seen and care discussed with my attending physician, Dr. Ruby Flanagan, PGY-1 Attending Provider Attestation/Addendum I have personally seen and examined the patient separately on the above date of service and discussed the plan of care with the resident. I reviewed the resident Dr. Rhodes consultation progress note and agree with the resident findings and plan in the note above and have also edited the documentation to reflect my findings and plan. Tino Beltran M.D. Interventional Cardiology
--- NOTE | 2024-10-10 17:17 | PC.CM ---
Patient opened to [facility]. I sent on [place] today.
--- NOTE | 2024-10-12 08:27 | PC.CC ---
Addendum entered by Melani Rothman RN 10/12/24 10:00: SOC is 10/12/24 Original Note: Pt booked with [facility] pending SOC
== END 2024-10-09 11:40 | disposition home health service (06) | DRG 871 ==
LOC: SERX 21:28 → SERHOLD 21:47 → S2NX 23:46
PROVIDERS: Physician Assistant; Registered Nurse General Practice; Student in an Organized Health Care Education/Training Program; Admitting Provider Internal Medicine; Emergency Provider Emergency Medicine; PCP Family Medicine; Visit Provider Internal Medicine
DX: A41.89 Other specified sepsis (principal); I21.A1 Myocardial infarction type 2; I50.43 Acute on chronic combined systolic (congestive) and diastolic (congestive) heart failure; J96.01 Acute respiratory failure with hypoxia; J10.01 Influenza due to other identified influenza virus with the same other identified influenza virus pneumonia; D61.818 Other pancytopenia; C16.9 Malignant neoplasm of stomach, unspecified; N17.9 Acute kidney failure, unspecified; J91.8 Pleural effusion in other conditions classified elsewhere; Z68.1 Body mass index [BMI] 19.9 or less, adult; R64 Cachexia; I48.0 Paroxysmal atrial fibrillation; F03.90 Unspecified dementia, unspecified severity, without behavioral disturbance, psychotic disturbance, mood disturbance, and anxiety; R62.7 Adult failure to thrive; Z93.1 Gastrostomy status; I27.21 Secondary pulmonary arterial hypertension; D53.9 Nutritional anemia, unspecified; M10.9 Gout, unspecified; Z90.3 Acquired absence of stomach [part of]; Z79.899 Other long term (current) drug therapy; Z79.69 Long term (current) use of other immunomodulators and immunosuppressants
CPT/HCPCS: 36415; 71045; 80048; 80053; 80307; 81001; 82607; 82746; 82945; 83615; 83735; 83880; 84100; 84145; 84157; 84484; 85014; 85018; 85025; 85610; 85730; 86850; 86900; 86901; 86921; 86922; 87040; 87070; 87075; 87077; 87081; 87186; 87205; 87502; 87634; 87811; 89051; 93005; 93306; 96361; 96365; 96368; 99285; C1729; J0456; J0696; J1940; J2470; J3475; J3480; J3490; J7040; J7050; P9016; A9270

== ENCOUNTER 2024-11-08 22:56 | Inpatient (IN) | payer MEDICARE, MEDICAID, SELFPAY ==
[2024-11-08 23:12] VITALS: BP 70/35; BP 75/30; PULSE 119; RESP 16; TEMP 36.9; O2SAT 90
--- NOTE | 2024-11-08 23:19 | EDRME_ITS ---
Rapid Medical Screening Exam E Arrival date/time: 11/08/24 22:56 This is an 88-year-old female that comes into the emergency room with complaints of fever, low oxygen saturations and low blood pressure. Family think patient needs a blood transfusion. Patient has a past medical history significant for gastric cancer status post partial gastrectomy and a feeding tube in place. Per patient family member patient has been eating and they have not needed to use his G-tube as much. Patient has a oncologist at [facility]. Other past medical history of chronic microcytic anemia, failure to thrive, atrial fibrillation(previously on anticoagulation but stopped because of GI bleed ) I have greeted and performed a focused initial assessment of this patient. Initial appropriate labs ordered at this time. A comprehensive ED assessment and evaluation of the patient and analysis of all test and completion of medical decision making process will be conducted by additional ED provider. Chief Complaint: Dizziness Time Seen by Provider: 11/08/24 23:13 Vital signs: Vital Signs Temperature 98.4 F 11/08/24 23:12 Pulse Rate 119 H 11/08/24 23:12 Respiratory Rate 16 11/08/24 23:12 Blood Pressure 70/35 L 11/08/24 23:12 Pulse Oximetry (%) 90 L 11/08/24 23:12 Oxygen Delivery Method Room Air 11/08/24 23:12
--- NOTE | 2024-11-08 23:23 | EKG_ITS ---
[facility] Test Date: 2024-11-08 Pat Name: JACOBO MCNEAL Department: Room: - Gender: Female [employer]visor [employer]: : 1935 Requested By: Rae Pat Order Number: [id number] Reading MD: Rae Pat Measurements Intervals [place] Rate: 113 P: 100 WA: 172 QRS: -38 QRSD: 70 T: 268 QT: 327 QTc: 450 Interpretive Statements SINUS TACHYCARDIA MARKED LEFT AXIS DEVIATION [QRS AXIS < -30] LOW QRS VOLTAGE IN EXTREMITY LEADS [QRS DEFLECTION < 0.5 mV IN LIMB LEADS] MODERATE T-WAVE ABNORMALITY, CONSIDER LATERAL ISCHEMIA [-0.1+ mV T WAVE IN I/aVL/V5/V6] Compared to ECG 10/09/2024 09:50:24 Left-axis deviation now present Low QRS voltage now present Sinus rhythm no longer present T-wave abnormality still present Possible ischemia still present /store/S0/[id number]/[id number].pdf
--- NOTE | 2024-11-08 23:23 | XR_ITS ---
Examination: AP chest single view Technique one AP portable semiupright chest single view Exam date and time: November 09, 2024 1212 hrs. Comparison: October 08, 2024 Indications: Onset chest pain today Findings: Significant heart failure Mild enlargement left ventricle Prominent vascular congestion with perihilar basilar edema and large bilateral pleural effusions Severe osteopenia Impression: Prominent heart failure
[2024-11-08 23:47] LABS: Lactate (Lactic Acid) 5.6 mMol/L (0.4-2.0)
[2024-11-08 23:59] VITALS: TEMP 37.6
[2024-11-09] VITALS (55 sets, daily range): BP systolic 100–138; BP diastolic 48–81; PULSE 81–112; RESP 0–151; TEMP 36.1–36.9; O2SAT 92–100; BMI 20.2
--- NOTE | 2024-11-09 00:11 | PD.EDDIZZY ---
ED Dizzyness RME/HPI General Chief Complaint: Dizziness Stated Complaint: LOW OXYGEN, LOW BLOOD PRESSURE, DIZZINESS Time Seen by Provider: 11/08/24 23:13 Arrival date/time: 11/08/24 22:56 RME / HPI RME / HPI Narrative: 11/08/24 22:56 This is an 88-year-old female that comes into the emergency room with complaints of fever, low oxygen saturations and low blood pressure. Family think patient needs a blood transfusion. Patient has a past medical history significant for gastric cancer status post partial gastrectomy and a feeding tube in place. Per patient family member patient has been eating and they have not needed to use his G-tube as much. Patient has a oncologist at [facility]. Other past medical history of chronic microcytic anemia, failure to thrive, atrial fibrillation(previously on anticoagulation but stopped because of GI bleed ) I have greeted and performed a focused initial assessment of this patient. Initial appropriate labs ordered at this time. A comprehensive ED assessment and evaluation of the patient and analysis of all test and completion of medical decision making process will be conducted by additional ED provider. Dr. Lacey?s Main ED Evaluation: 88yo female with a history of gastric cancer status post partial gastrectomy currently on sunitinib malate and follows up with oncologist at [facility], chronic microcytic anemia, failure to thrive, pancytopenia, atrial fibrillation presents to the ED for complaints of fever and low blood pressure. Family member at bedside states the patient started having a fever of 101 today, reporting when they checked her blood pressure, it was noted to be low, so he brought her in for evaluation. Patient reported to family she was having pain to her G-tube site. Denies any N/V or any other associated symptoms. No known allergies. Related Data Home Medications ?Medication ?Instructions ?Recorded ?Confirmed sunitinib malate 25 mg capsule 25 mg PO DAILY 08/11/24 10/07/24 allopurinol 100 mg tablet 100 mg PO DAILY 10/07/24 10/07/24 (Zyloprim) Allergies Allergy/AdvReac Type Severity Reaction Status Date / Time No Known Allergies Allergy Verified 11/08/24 22:58 Review of Systems Review of Systems Systems Reviewed: All systems reviewed, normal except as documented Past Medical History Past Medical History NEUROLOGIC: Positive Dementia; Negative Neurological Disorders, Cerebrovascular Accident, Transient Ischemic Attacks (TIA), Alzheimer's Disease, Parkinson's Disease, Brain Tumor, Meningitis, Seizures, Epilepsy, Multiple Sclerosis, Cerebral Palsy, Amyotrophic Lateral Sclerosis (ALS/Samaria Gehrig's), Guillain-Bethesda Syndrome, Spina Bifida, Paralysis, Peripheral Neuropathy, Alfaro's Palsy, Subdural Hematoma, Migraine, Head Trauma, Spinal Cord Injury or Traumatic Brain Injury CARDIAC: Positive Cardiac Arrhythmia, Atrial Fibrillation, Congestive Heart Failure and Edema; Negative Cardiac Disorders, Myocardial Infarction, Angina, Heart Murmur, Coronary Artery Disease, Atherosclerotic Heart Disease, Peripheral Vascular Disease, Hypercholesterolemia, Aneurysm, Congenital Heart Disease, Valvular Heart Disease, Rheumatic Fever, Cardiomyopathy, Pericarditis, Cellulitis, Deep Vein Thrombosis, Hypertension, Hypotension or Varicose Veins RESPIRATORY: Negative Chronic Obstructive Pulmonary Disease (COPD), Asthma, Bronchitis, Emphysema, Pneumonia, Pulmonary Fibrosis, Cystic Fibrosis, Tuberculosis, Pulmonary Embolism, Pulmonary Edema or Sleep Apnea GASTROINTESTINAL: Positive Gastrointestinal Disorders, Gastrointestinal Bleed and Hemorrhoids; Negative Hepatitis, Cirrhosis, Pancreatitis, Celiac Disease, Gall Bladder Disease, Esophageal Varices, Raya's Esophagus, Colitis, Ulcerative Colitis, Diverticulitis, Diverticulosis, Ulcer, Colorectal Cancer, Irritable Bowel, Crohn's Disease, Obstructive Bowel, Hiatal Hernia, Gastroesophageal Reflux Disease or Obesity GENITOURINARY: Negative Genitourinary Disorders, Renal Disease, Kidney Stones, Polycystic Kidney Disease, Neurogenic Bladder, Inguinal Hernia, Dialysis, Prostate Cancer or Benign Prostatic Hyperplasia REPRODUCTIVE: Negative Breast Cancer, Endometriosis, Genital Herpes, Gonorrhea, Pelvic Inflammatory Disease, Previous Pregnancies, Syphilis, Testicular Cancer or Uterine Prolapse MUSCULOSKELETAL: Negative Musculoskeletal Disorders, Muscular Dystrophy, Myasthenia Gravis, Marfan's Syndrome, Bone Cancer, Arthritis, Rheumatoid Arthritis, Osteoporosis, Degenerative Disk Disease, Gout, Scoliosis, Carpal Tunnel Syndrome, Fibromyalgia, Fractures, Degenerative Joint Disease, Osteomyelitis or Poliovirus ENT: Negative Cataracts, Glaucoma, Blind, Retinal Detachment, Macular Degeneration, Ear Infection, Deafness, Head Trauma or Eye Prosthesis ENDOCRINE: Negative Endocrine Disorders, Diabetes Mellitus Type 1, Diabetes Mellitus Type 2, Hypoglycemia, Uvalde's Syndrome, [place]'s Disease, Hyperthyroidism, Hypothyroidism, Parathyroid Disease, Pituitary Disease, Systemic Lupus Erythematosus, Syndrome of Inappropriate Antidiuretic Hormone (SIADH), Adrenal Disease or Graves' Disease HEMATOLOGIC: Positive Blood Disorders, Anemia and Clotting Problems; Negative Leukemia, Hemophilia, Thalassemia or Sickle Cell Disease PSYCHO/SOCIAL: Positive Eating Disorder; Negative Psychiatric Problems, Schizophrenia, Recreational Drug Use, Bipolar Disorder, Depression, Anxiety, Behavior Problems, Self-Mutilation, Attention Deficit Disorder, Attention Deficit Hyperactivity Disorder, Depression or Post Traumatic Stress Disorder OTHER HISTORY: Positive Hospitalization, Blood Transfusions, Chemotherapy and Cancer (STOMACH); Negative Autoimmune Disease, Down Syndrome, Autism, Developmental Delay, Shingles, Falls, Blood Transfusion Reaction, Anesthesia Reactions, Organ Transplant, Radiation Therapy, Hyperbaric Therapy, MRSA, VRSA, Vancomycin-Resistant Enterococci, Human Immunodeficiency Virus (HIV), Chicken Pox, Measles, Mumps, Rubella (Cypriot Measles), Pertussis, Clostridium Difficile, Breast Cancer, Cervical Cancer, Colorectal Cancer, Lung Cancer, Ovarian Cancer, Prostate Cancer or Testicular Cancer Family History FAMILY HISTORY: Negative Family Psychiatric Problems, Family Respiratory Disorders, Family Cardiac Disorders, Family Gastrointestinal Problems, Family Cancer, Family Surgery or Family Anesthesia Reaction Surgical History SURGICAL: Positive Abdominal Surgery and Gastrostomy (PEG AND PARTIAL GASTRECTOMY); Negative Cardiac Surgery, Open Heart Surgery, Coronary Artery Bypass Graft, Valve Replacement, Vascular Surgery, Coronary Stent, Cardiac Catheterization, Pacemaker, Angiogram, Auto Implanted Cardiovert Defib, Carotid Endarterectomy, Endocrine Surgery, Thyroidectomy, Ear Surgery, Tympanostomy Tube, Eye Surgery, Nose Surgery, Oral Surgery, Tonsillectomy, Adenoidectomy, Cochlear Implant, Corneal Transplant, Throat Surgery, Tracheostomy, Gastric Bypass Surgery, Bowel Surgery, Nephrectomy, Transurethral Resection, Joint Replacement, Amputation, Open Reduction Internal Fixation, Arthroscopy, Neurologic Surgery, Brain Shunt, Mastectomy, Lumpectomy, Hysterectomy, Tubal Ligation, Section, Vasectomy or Organ Transplant Social History SMOKING STATUS: Never smoker ED Exam Narrative Physical exam: GENERAL APPEARANCE: alert and oriented x self, cachectic, responds to loud voice, eyes are open, no acute distress VITALS: All vitals were reviewed and the pulse ox is 90% on room air, which is hypoxic according to my interpretation. HEENT: Normocephalic, atraumatic; pupils equal, round, reactive to light; EOMI; mucous membranes pink, moist; oropharynx clear NECK: Supple LUNGS: CTABL; no wheezes, no rales, no rhonchi HEART: Tachycardic , regular rhythm; normal S1, S2; no murmurs ABDOMEN: non distended; normal BS; soft, no tenderness, no guarding, no rebound; no masses, no organomegaly, no hernia BACK: no CVA tenderness EXTREMITIES: atraumatic; no edema NEUROLOGIC: awake; alert and oriented x self; cranial nerves II-XII grossly intact; no focal sensory or motor deficits PSYCHIATRIC: appropriate mood and affect SKIN: warm, dry, pallor ; no rashes Course Course Course Narrative: CXR is ordered for determining the etiology of fever. 0000: Sepsis alert initiated. Orders made at this time are congruent with ED Adult Sepsis Order List. Re-evaluation is to be completed. 0016: NS IVF started. NS IVF still being administered at the time of admission. Quality Measures Possible source: pulmonary and genitourinary Blood cultures ordered: yes Antibiotic ordered: Yes Pertinent labs: 11/08/24 23:32 Lactic Acid 5.6 H* mMol/L (0.4-2.0) Procalcitonin 6.99 H ng/ml (0.0-0.49) sepsis Orders Category Date Time Status Bedside COVID-19 Antigen Test NOW Care 11/08/24 23:24 Active Bedside Influenza A&B Antigen Test NOW Care 11/08/24 23:25 Completed Soil Conservation Aide STAT Care 11/08/24 23:58 Active Continuous Pulse Oximetry STAT Care 11/08/24 23:58 Completed EKG (ED ONLY) *Do not use* NOW Care 11/08/24 23:23 Completed Insert IV NOW Care 11/08/24 23:58 Active NPO STAT Care 11/08/24 23:58 Active Strict Intake and Output Routine Care 11/08/24 23:58 Ordered Urinary Catheter QS Care 11/08/24 23:58 Active EKG (ED Only) Stat Exams 11/08/24 23:23 Draft XR chest 1V Stat Exams 11/08/24 23:23 Taken Arterial Blood Gas Stat Lab 11/08/24 23:59 Ordered B-Type Natriuretic Peptide Stat Lab 11/08/24 23:58 Ordered Blood Culture (Lab) Stat Lab 11/08/24 23:27 Received CBC Stat Lab 11/08/24 23:37 Completed Comprehensive Metabolic Panel Stat Lab 11/08/24 23:32 Completed LDH (Lactate Dehydrogenase) Stat Lab 11/08/24 23:58 Ordered Lactate (Lactic Acid) Stat Lab 11/08/24 23:32 Results Lipase Stat Lab 11/08/24 23:58 Ordered Magnesium Stat Lab 11/08/24 23:58 Ordered PT [Prothrombin Time with INR] Stat Lab 11/08/24 23:24 Ordered Partial Thromboplastin Time Stat Lab 11/08/24 23:24 Ordered Phosphorous Stat Lab 11/08/24 23:58 Ordered Procalcitonin Stat Lab 11/08/24 23:32 Completed Troponin I Stat Lab 11/08/24 23:58 Ordered Type and Screen Stat Lab 11/08/24 23:24 Ordered Urinalysis, C/S if Indicated Stat Lab 11/09/24 01:03 Completed Urine Culture Stat Lab 11/09/24 01:03 Received Doxycycline Inj [Vibramycin Inj] 100 mg Med 11/09/24 00:01 Discontinued Sodium Chloride 0.9% 250 ml [Ns] 250 ml IV X1 Piper/Tazo 3.375 gm [Zosyn] Med 11/08/24 23:58 Discontinued 3.375 gm in 50 ml IV X1 Sodium Chloride 0.9% 1000 ml [Ns] 1,000 ml Med 11/09/24 00:02 Discontinued IV 999 mls/hr Sodium Chloride 0.9% 1000 ml [Ns] 1,000 ml Med 11/09/24 00:02 Discontinued IV 999 mls/hr Oxygen Delivery NOW RT 11/08/24 23:58 Active Vital Signs Vital signs: Vital Signs Temperature 98.4 F 11/08/24 23:12 Pulse Rate 119 H 11/08/24 23:12 Respiratory Rate 16 11/08/24 23:12 Blood Pressure 70/35 L 11/08/24 23:12 Pulse Oximetry (%) 90 L 11/08/24 23:12 Oxygen Delivery Method Room Air 11/08/24 23:12 Dizziness MDM Narrative MDM Narrative:: Scribe Attestation: 11/09/24 Hui Green am scribing for and in the presence of Dr. Lacey. I placed a right EJ. Patient data External records reviewed:: [facility] previous records (Per chart review, patient was admitted here for aFib RvR.) Clinical information provided by:: family Social determinants that could affect healthcare access:: none Patient has the following chronic illnesses:: gastric cancer status post partial gastrectomy currently on sunitinib malate and follows up with oncologist at [facility], chronic microcytic anemia, failure to thrive, pancytopenia, atrial fibrillation How is presenting disease/condition affected by chronic disease/condition?: caused by Evaluation data The following diagnostics were reviewed and interpreted by me:: lab results, radiology exam(s) and EKG tracing(s) Lab and/or radiology exams considered but not ordered:: none Interpretation Summary: WBC count is normal at 4.2, HnH is low at 8.5/27.9, Platelets are low at 50, Lactate is elevated at 5.9, Procalcitonin is elevated at 6.99, Bedside COVID and Influenza are negative, according to my interpretation. CXR shows dense bibasilar opacities, bilateral pleural effusions, and chronic changes, according to my interpretation. EKG done at 2355, sinus tachycardia, rate of 113, left axis deviation, no ectopy Q waves in V1 and V2, inverted T-waves in V4-V6, no STEMI, according to my interpretation. Medications / Prescriptions Medications or Prescriptions considered but not ordered:: none Medication administrations:: Medication Administration History Acetaminophen (Acetaminophen 325 Mg Tablet) 650 mg PO Q6H PRN PRN Reason: Fever >101.5 Stop: 12/09/24 01:01 Dextrose/Sodium Chloride (D5-1/2ns) 1,000 mls @ 75 mls/hr IV .[id number] [facility] Stop: 12/09/24 01:14 Cefepime HCl 1 gm/ Sodium (Chloride) 50 mls @ 100 mls/hr IV Q24H [facility] Stop: 11/16/24 01:14 Azithromycin 500 mg/ Sodium (Chloride) 250 mls @ 250 mls/hr IV QDAY [facility] Stop: 11/16/24 01:08 Azithromycin 500 mg/ Sodium (Chloride) 250 mls @ 250 mls/hr IV X1 ONE Stop: 11/09/24 02:59 Discontinued Medications Piperacillin/Tazobactam/Dextrose (Zosyn) 3.375 gm in 50 mls @ 100 mls/hr IV X1 ONE Stop: 11/09/24 00:27 Last Infusion: 11/09/24 01:02 Dose: Infused Documented By: Admin: 11/09/24 00:29 Dose: 100 mls/hr Documented By: SHAYE Doxycycline Hyclate 100 mg/ (Sodium Chloride) 250 mls @ 125 mls/hr IV X1 ONE Stop: 11/09/24 02:00 Last Admin: 11/09/24 00:57 Dose: 125 mls/hr Documented By: TC Sodium Chloride (Ns) 1,000 mls @ 999 mls/hr IV .Q1H1M ONE Stop: 11/09/24 01:02 Last Infusion: 11/09/24 01:43 Dose: Infused Documented By: Admin: 11/09/24 00:16 Dose: 999 mls/hr Documented By: EF Sodium Chloride (Ns) 1,000 mls @ 999 mls/hr IV .Q1H1M ONE Stop: 11/09/24 01:02 Last Infusion: 11/09/24 01:43 Dose: Infused Documented By: Admin: 11/09/24 00:29 Dose: 999 mls/hr Documented By: TC Zosyn, Vibramycin, 1L NS x2 Consultations Consultation(s) initiated? (list below): Yes Consultation #1 (Physician, Specialty, Details): Discussed case with [Dr. Kong] from Hospitalist service regarding admission. Discussed patients ED course, exam findings, labs, and radiology results. The Hospitalist [agrees] to accept the patient for admission. Time: 00:56 Diagnosis Dizziness Differential Diagnosis: other (septic shock, dehydration, hypovolemia 2/2 hemorrhage, cardiogenic shock) Most likely diagnosis given after review of the tests above:: septic shock Admission Indicated Admission indicated?: indicated Admission Request Was there a request for admission?: Yes Admission Attestation Admission request attestation: Discussed case with [] from Hospitalist service regarding admission. Discussed patients ED course, exam findings, labs, and radiology results. The Hospitalist [agrees,declines] to accept the patient for admission. Disposition Plan Disposition Plan: Admit Critical Care Time Critical Care Time Critical Care Time: Yes Total Critical Care Time (min.): 40 Attestation: The high probability of sudden, clinically significant deterioration in the patient?s condition required the highest level of my preparedness to intervene urgently. The services I provided to this patient were to treat and/or prevent clinically significant deterioration. Services included the following: chart data review, reviewing nursing notes and/or old charts, documentation time, net developer consultant collaboration regarding findings and treatment options, medication orders and management, direct patient care, vital sign assessments and ordering, interpreting and reviewing diagnostic studies and lab tests. Aggregate critical care time includes only time during which I was engaged in work directly related to the patient?s care, as described above, whether at bedside or elsewhere in the Emergency Department. It did not include time spent performing other reported procedures or the services of residents, students, nurses or physician assistants. Discharge Plan Plan Patient Disposition: Admit Acute Care w/in Hospital Problem List Clinical Impression: Septic shock
[2024-11-09] MEDS: SODIUM CHLORIDE 0.9% 1000 ML 1,000 ML 999 ML IV ×2 (00:16→00:29)
[2024-11-09] MEDS: PIPER/TAZO 3.375 GM 3.375 GM/50 ML BAG IV (00:29)
[2024-11-09 00:30] LABS: Basophils % (Auto) 1 % (0-2.5); Eosinophils % (Auto) 0 % (0-10); Hematocrit 27.9 % (36.0-46.0); Immature Granulocytes % (Auto) 1 % (0-0); Immature Granulocytes Auto 0.04 Thou/mm3 (0.00-0.00); Lymphocytes # (Auto) 0.6 Thou/mm3 (1.0-4.8); Lymphocytes % (Auto) 15 % (10-50); Mean Corpuscular HGB Conc 30.5 g/dl (31.0-37.0); Mean Corpuscular Hemoglobin 37.4 pg (25.0-35.0); Mean Corpuscular Volume 123 fL (80-100); Monocytes # (Auto) 0.3 Thou/mm3 (0.0-0.8); Monocytes % (Auto) 7 % (0-12); Neutrophils # (Auto) 3.2 Thou/mm3 (1.8-7.7); Neutrophils % (Auto) 76 % (37-80); Nucleated Red Blood Cell # 2.62 Thou/mm3 (0.00-0.00); Nucleated Red Blood Cell % 63 /100 WBC (0); RDW Standard Deviation 122.2 fL (36.4-46.3); Red Blood Count 2.27 Miln/mm3 (4.00-5.20); White Blood Count 4.2 Thou/mm3 (3.6-11.0)
[2024-11-09 00:35] LABS: Hemoglobin 8.5 g/dL (12.0-16.0); Platelet Count 50 Thou/mm3 (140-440)
[2024-11-09 00:37] LABS: Alanine Aminotransferase 20 U/L (10-49); Albumin/Globulin Ratio 0.4 (1.2-2.2); Alkaline Phosphatase 127 U/L (46-116); Anion Gap 12 (7-16); Aspartate Amino Transferase 105 U/L (0-34); BUN/Creatinine Ratio 23 Ratio (12-20); Bilirubin,Total 1.1 mg/dL (0.3-1.2); Blood Urea Nitrogen 45 mg/dL (9-23); Calcium 8.3 mg/dL (8.3-10.6); Calcium (Corrected) 9.9 mg/dL (8.5-10.1); Carbon Dioxide 26.1 mMol/L (20.0-31.0); Chloride 111 mMol/L (98-107); Estimated Creatinine Clearance 13.5 mL/min (>60); Globulin 4.6 gm/dL (2.3-3.5); Glucose 69 mg/dL (74-106); Osmolality,Calculated 305 (275-295); Potassium 4.2 mMol/L (3.4-5.1); Procalcitonin 6.99 ng/ml (0.0-0.49); Sodium 149 mMol/L (136-145); Total Protein 6.6 gm/dL (5.7-8.2); eGFR 24 See Note
[2024-11-09] MEDS: DOXYCYCLINE INJ 100 MG in SODIUM CHLORIDE 0.9% 250 ML 250 ML 125 MG IV (00:57)
[2024-11-09 01:08] LABS: Collection Type, Urine Voided
--- NOTE | 2024-11-09 01:11 | EVENTNT_ITS ---
Documentation for date of: 11/09/24 Event Note Event Note: An 88-year-old female presented to the ER with the chief complaint of fever and low blood pressure. The patient developed symptoms earlier today, including a fever reaching 101?F and hypotension noted by her family. She also reported pain at her G-tube site. Her family states that she has been feeling weak but has not experienced dizziness, nausea, vomiting, cough, or shortness of breath. They report that she has been consuming food and fluids orally without difficulty. Her oxygen saturation was noted to be low by the family. The patient has a medical history of gastric cancer, status post partial gastrectomy, and is currently on sunitinib malate chemotherapy. She also has a history of chronic microcytic anemia, pancytopenia, atrial fibrillation (not on anticoagulation), failure to thrive, and a history of GI bleed. She previously had a PEG tube placed but has recently been taking food and fluids orally. She lives with family, who are her primary caregivers, and her code status is full code. No known history of smoking or alcohol use. In the Emergency Department, the patient was initially evaluated with vital signs recorded as: temperature 98.4?F, heart rate 119 bpm, respiratory rate 16 breaths per minute, and blood pressure 70/35 mmHg. Sepsis alert was called, and she received doxycycline and zosyn. Laboratory results showed WBC 4.2, hemoglobin 8.5, platelets 50, sodium 149, BUN 45, creatinine 2.0, lactic acid 5.6, glucose 69, and procalcitonin 6.99. Imaging demonstrated prominent bibasilar pneumonia. EKG showed sinus tachycardia. UA pending. Family wished G- tube removal, given that she is swallowing without difficulty. The patient was admitted for further management. #Sepsis secondary to Pneumonia * Assessment: The patient presents with hypotension, fever, leukopenia, and elevated procalcitonin, consistent with sepsis. Imaging findings suggest pneumonia as a likely source. Her history of chemotherapy-related pancytopenia and chronic anemia increases susceptibility to infection and complicates her ability to mount a robust immune response. Acute kidney injury, likely due to sepsis-induced hypoperfusion, is also noted. * Plan: * Antibiotics: Continue broad-spectrum coverage; reassess based on culture results. * Hemodynamic support: Maintain IV fluids; consider vasopressors if hypotension persists. * Respiratory support: Monitor oxygenation and provide supplemental O2 as needed for pneumonia-related hypoxia. * Renal function: Monitor creatinine, urine output, and electrolyte balance; adjust medications as needed for WILLIE. * Hematologic concerns: Monitor for worsening pancytopenia; transfuse if necessary (e.g., for symptomatic anemia or thrombocytopenia with bleeding risk). * Infectious workup: Await UA and culture results; trend lactate and inflammatory markers for response to treatment. * G-tube management: Swallow evaluation first. Since the family has expressed interest in removal, consider engaging Nutrition services to ensure proper evaluation of long-term nutritional support before proceeding.
[2024-11-09 01:12] LABS: Bilirubin,Urine Negative (Negative); Blood,Urine Negative (Negative); Clarity,Urine Clear (Clear/Hazy); Color,Urine Yellow (Lt Yel-Yel); Culture Indicated,Urine Not Indicated; Glucose, Urine Negative (Negative); Hyaline Casts,Urine 1 /hpf (0-1); Ketones,Urine Negative (Negative); Leukocyte Esterase,Urine Negative (Negative); Nitrite,Urine Negative (Negative); Protein,Urine Trace (Neg - Trace); RBC,Urine < 1 /hpf (0-3); Specific Gravity,Urine 1.015 (1.001-1.035); Squamous Epithelial Cell,Urine < 1 /hpf (0-5); Urobilinogen,Urine Negative mg/dL (0.0-1.0); WBC,Urine 3 /hpf (0-5)
--- NOTE | 2024-11-09 01:14 | ESHP_ITS ---
Documentation for date of: 11/09/24 HPI History of Present Illness Chief complaint: Fever, weakness History of present illness: Ms. Harris is a 88-year-old tagalog-speaking female with past medical history of gastric cancer status post partial gastrectomy on sunitinib malate (following with [facility] oncology), failure to thrive, pancytopenia, chronic macrocytic anemia, paroxysmal A-fib (not on anticoagulation) and history of GI bleed who presented to [facility] emergency department on 11/08/2024 with a chief complaint of fever, weakness and low blood pressure. Patient's family at bedside, assisted in providing history, per family member at bedside patient started having fevers today, fevers noted to be 101 around this afternoon, reported when they checked the blood pressure it was low and also her oxygen saturation was less than 92. Per patient's family her appetite has improved significantly and family requests that the G-tube to be discontinued. Family denied any other symptoms of cough, nausea and vomiting. Reports following regularly with oncology and [facility], next appointment on 16 November. Of note patient was recently discharged on 10/08/2023 from [facility] for sepsis, acute hypoxic respiratory failure secondary to bilateral community-acquired pneumonia, influenza A+ and bilateral pleural effusions. ED Course: ED Vitals: On presentation in ED BP 70/35, P 119, RR 16, temp 98.4, O2 sat 90 on room air ED Labs: ED labs significant for RBC 2.27, hemoglobin 8.5, hematocrit 27.9, MCV 123, MCH 37.4, MCHC 30.5, platelet 50,000, sodium 149, chloride 111, BUN 45, creatinine 2.5, GFR 24, glucose 69, osmolality 305, lactate 5.6, AST 105, alk phos 127, albumin 2.0, globulin 4.6, Pro-Alex 6.99. Bedside flu and COVID- negative. ED Imaging: Chest x-ray in the ED significant for bibasilar pneumonia, pending official read. EKG shows sinus tachycardia QTc 450 ED Treatment:Patient was given 2 L NS bolus, Zosyn x 1 and doxycycline x 1 in ED Review of Systems Review of Systems Narrative Review of Systems: ROS: -CONSTITUTIONAL: Denies weight loss, positive for fever. -HEENT: Denies changes in vision and hearing. -RESPIRATORY: Positive for SOB and denies cough. -CV: Denies palpitations and Chest Pain. -GI: Denies abdominal pain, nausea, vomiting,constipation and diarrhea. -: Denies dysuria and urinary frequency. -MSK: Denies myalgia and joint pain. -SKIN: Denies rash and pruritus. -NEUROLOGICAL: Denies headache and syncope. -PSYCHIATRIC: Denies recent changes in mood. Denies anxiety and depression. Past Medical History Past Medical History Comments PMH COMMENT: PMH: Positive for gastric cancer status post partial gastrectomy on sunitinib malate (following with [facility] oncology), failure to thrive, pancytopenia, chronic macrocytic anemia, paroxysmal A-fib (not on anticoagulation) and history of GI bleed NEUROLOGIC: Positive Dementia CARDIAC: Positive Atrial Fibrillation (Paroxsymal) GASTROINTESTINAL: Positive Gastrointestinal Disorders (Linitus plastica) and Gastrointestinal Bleed HEMATOLOGIC: Positive Blood Disorders (Pancytopenia) and Anemia (Macrocytic secondary to partial gastrectomy) PSYCHO/SOCIAL: Positive Eating Disorder (anorexia) OTHER HISTORY: Positive Blood Transfusions PSHx: Partial gastrectomy Allergies: No known allergies Social history: -Smoking: Denies -Alcohol Use: Denies -Illicit Drug Use: Denies Family History: Denies pertinent family history Exam Vital Signs Temp Pulse Resp BP Pulse Ox O2 Del Method O2 Flow Rate 99.7 F 105 H 13 70/35 L 98 Room Air 3 11/08/24 23:59 11/09/24 00:18 11/09/24 00:18 11/08/24 23:12 11/09/24 00:18 11/08/24 23:12 11/09/24 00:18 Narrative Exam Physical Exam General: Awake, Elderly female, cachectic, tired, sick appearing. HEENT: Normocephalic, atraumatic, mucous membranes dry. Heart: Tachycardic, regular rhythm, no murmurs. Lungs: Clear to auscultation with no wheezing or crackles. Abdomen: Soft, nondistended, nontender, positive bowel sounds. ?No guarding or rebound tenderness. PEG tube noted. Neurologic: Alert and oriented x3, no gross neurological deficit, and patient able to move all 4 extremities. Extremities: No edema. Skin: No rash or ecchymoses. Pallor noted. Results: Labs 11/08/24 23:37 11/08/24 23:32 Labs: Short CBC 11/08/24 Range/Units 23:37 WBC 4.2 (3.6-11.0) Thou/mm3 Hgb 8.5 L (12.0-16.0) g/dL Hct 27.9 L (36.0-46.0) % Plt Count 50 L (140-440) Thou/mm3 BMP 11/08/24 23:32 Sodium 149 H Potassium 4.2 Chloride 111 H Carbon Dioxide 26.1 BUN 45 H Creatinine 2.0 H Glucose 69 L Calcium 8.3 Liver Function 11/08/24 Range/Units 23:32 Total Bilirubin 1.1 (0.3-1.2) mg/dL AST 105 H (0-34) U/L ALT 20 (10-49) U/L Alkaline Phosphatase 127 H (46-116) U/L Albumin 2.0 L (3.4-4.8) gm/dL Quality Measures Quality Measures sepsis Current suspected stage: severe sepsis Possible source: pulmonary and genitourinary Blood cultures ordered: yes Antibiotic ordered: Yes Advance care planning discussed with:: patient and child Medications Home Medications and Allergies Home Medications ?Medication ?Instructions ?Recorded ?Confirmed ?Type sunitinib malate 25 mg capsule 25 mg PO DAILY 08/11/24 10/07/24 History allopurinol 100 mg tablet 100 mg PO DAILY 10/07/24 History (Zyloprim) Allergies Allergy/AdvReac Type Severity Reaction Status Date / Time No Known Allergies Allergy Verified 11/08/24 22:58 Visit Medications Acetaminophen (Acetaminophen 325 Mg Tablet) 650 mg PO Q6H PRN PRN Reason: Fever >101.5 Stop: 12/09/24 01:01 Doxycycline Hyclate 100 mg/ (Sodium Chloride) 250 mls @ 125 mls/hr IV X1 ONE Stop: 11/09/24 02:00 Last Admin: 11/09/24 00:57 Dose: 125 mls/hr Dextrose/Sodium Chloride (D5-1/2ns) 1,000 mls @ 75 mls/hr IV .[id number] [facility] Stop: 12/09/24 01:14 Cefepime HCl 1 gm/ Sodium (Chloride) 50 mls @ 100 mls/hr IV Q24H [facility] Stop: 11/16/24 01:14 Azithromycin 500 mg/ Sodium (Chloride) 250 mls @ 250 mls/hr IV QDAY [facility] Stop: 11/16/24 01:08 Azithromycin 500 mg/ Sodium (Chloride) 250 mls @ 250 mls/hr IV X1 ONE Stop: 11/09/24 02:59 Discontinued Medications Piperacillin/Tazobactam/Dextrose (Zosyn) 3.375 gm in 50 mls @ 100 mls/hr IV X1 ONE Stop: 11/09/24 00:27 Last Infusion: 11/09/24 01:02 Dose: Infused Sodium Chloride (Ns) 1,000 mls @ 999 mls/hr IV .Q1H1M ONE Stop: 11/09/24 01:02 Last Admin: 11/09/24 00:16 Dose: 999 mls/hr Sodium Chloride (Ns) 1,000 mls @ 999 mls/hr IV .Q1H1M ONE Stop: 11/09/24 01:02 Last Admin: 11/09/24 00:29 Dose: 999 mls/hr Assessment & Plan Plan Assessment and Plan: Summary: Ms. Harris is a 88-year-old tagalog-speaking female with past medical history of gastric cancer status post partial gastrectomy on sunitinib malate (following with [facility] oncology), failure to thrive, pancytopenia, chronic macrocytic anemia, paroxysmal A-fib (not on anticoagulation) and history of GI bleed who presented to [facility] emergency department on 11/08/2024 with a chief complaint of fever, weakness and low blood pressure. Patient admitted for further workup for acute hypoxic respiratory failure, sepsis secondary to bilateral bibasilar pneumonia. #Acute hypoxic respiratory failure #Sepsis #Bilateral bibasilar pneumonia #Elevated lactate, Pro-Alex Patient presented with fever, shortness of breath, low SpO2, hypotension. Fever of 101 noted at home, chest x-ray on presentation in ED shows bibasilar pneumonia, patient requiring supplemental oxygen to maintain SpO2 more than 92. On admission lactate 5.6, procal 6.99, high suspicion of bacterial pneumonia. Patient was significantly hypotensive on presentation, was given 2 L bolus in ED. Patient given Zosyn and doxycycline x 1 in ED, sepsis alert called. Plan: ? IV cefepime and azithromycin (09/08- ? Flu and RSV negative in ED ? Follow MRSA nasal screen ? Follow blood culture and urine culture ? Consider ordering sputum culture in a.m. ? Supplemental oxygen as needed ? Follow lactate level, was given 2 L bolus in ED #Acute on chronic kidney injury #CKD stage IIIa On presentation BUN 45, creatinine 2.0, GFR 24. Baseline BUN 36, creatinine 1.0 GFR 55 Patient was given 2 L NS bolus in ED, WILLIE likely prerenal in setting of sepsis Plan: -Patient on D5-1/2NS maintenance fluid -Avoid nephrotoxic agents: NSAIDs -Renally dose medications #Hypernatremia Patient sodium 149 on presentation, hypernatremia likely in setting of dehydration Plan: -Patient started on maintenance fluid D5 half NS -Sodium correction goal 8 to 10 mEq in 24 hours -Follow sodium level in a.m. #Failure to thrive status post PEG tube placement Patient has history of gastric cancer status post surgery, had failure to thrive postop, had PEG tube placed for nutrition supplementation. Per family patient has good p.o. intake, requesting discontinuation of PEG tube. Plan: -Referral to speech therapy, swallow eval in a.m. -Pur?ed diet -Consider dietitian consult in a.m. -Consider GI consult in a.m. to discontinue PEG tube #Macrocytic anemia #Thrombocytopenia Patient's hemoglobin 8.5, MCV 123 on presentation, platelet count 50,000. Patient has chronic macrocytic anemia secondary to partial gastrectomy. Plan: -Follow CBC in a.m. #Paroxysmal A-fib Patient has history of paroxysmal A-fib, was discharged on metoprolol succinate 100 mg Plan: -Pending med reconciliation, consider resuming metoprolol succinate 100 mg in a.m. -Keep potassium more than 4, magnesium more than 2 -Telemetry monitoring -Patient not on anticoagulation because of history of GI bleed #Gastric cancer by history #History of GI bleed Pending med reconciliation DVT prophylaxis: SCDs GI prophylaxis: Not indicated currently Diet: Pur?ed diet Lines: Peripheral IV Code status: Full code Case discussed with Attending Dr. Kong. Jenn Oglesby PGY1 Disclaimer: This note was dictated by speech recognition. Minor errors in finished carpet inspector may be present due to voice recognition software. Attending Provider Attestation/Addendum Pt was evaluated and plan formulated together with the housestaff team. I have reviewed the residents note above and agree with most of its content. Please refer to the residents note for additional details.
[2024-11-09 01:34] LABS: Slide Review Platelets confirmed
[2024-11-09 02:44] LABS: Reflex Lactate? Y
[2024-11-09 03:11] LABS: Lactic Acid, 3 HR 2.6 mMol/L (0.4-2.0)
[2024-11-09 03:32] LABS: LDH (Lactate Dehydrogenase) 497 U/L (120-246); Lipase 21 U/L (12-53); Phosphorous 3.8 mg/dL (2.4-5.1)
[2024-11-09 03:34] LABS: Troponin I 0.404 ng/mL (0.0-0.045)
[2024-11-09 03:37] LABS: B-Type Natriuretic Peptide 294 pg/mL (0-100)
[2024-11-09 03:45] LABS: INR 1.6 (0.9-1.3); Partial Thromboplastin Time 37.4 Seconds (22.0-36.0); Prothrombin Time 17.3 Seconds (9.0-12.2)
--- NOTE | 2024-11-09 08:01 | PC.NURSE ---
Spoke with powerhouse attendant, Gisselle, which states IR unavailable today for PICC line, Irwin godinez made aware.
--- NOTE | 2024-11-09 08:08 | ECHO_ITS ---
Transthoracic Echo Report Ht (in): 61 Wt (lb): 100 Exam Location: Echo Lab Status: Inpatient Epic Ambulatory Analyst: ANIKET Mendoza^^^^ Indications: Procedure Performed: BP: 121 / 91 HR: 82 Technical Quality: Fair MEASUREMENTS (Male / Female) Normal Values 2D ECHO LVOT Diameter 1.9 cm Aortic Root Diameter 3.1 cm LA Systolic Diameter LX 2.1 cm 3.0 - 4.0 / 2.7 - 3.8 cm LV Ejection Fraction MOD BP 57.8 % >= 55 % LV Cardiac Index MOD BP 2812.8 cm?/min?m? LV Ejection Fraction MOD 4C 63.3 % LV Cardiac Index MOD 4C 3454.2 cm?/min?m? LV Ejection Fraction 4C AL 63.9 % LV Cardiac Index 4C AL 3622.3 cm?/min?m? LV Ejection Fraction MOD 2C 51.0 % LV Cardiac Index MOD 2C 2071.3 cm?/min?m? LV Ejection Fraction 2C AL 51.3 % LV Cardiac Index 2C AL 2129.5 cm?/min?m? LA Volume Index 72.3 cm?/m? 16 - 28 cm?/m? Ascending Aorta Diameter 3.6 cm DOPPLER AV Peak Velocity 195.0 cm/s AV Peak Gradient 15.2 mmHg AV Mean Gradient 10.0 mmHg AV Velocity Time Integral 40.5 cm AI Peak Velocity 337.0 cm/s AI Peak Gradient 45.4 mmHg AI Pressure Half Time 620.0 ms LVOT Peak Velocity 92.4 cm/s LVOT Peak Gradient 3.4 mmHg LVOT Velocity Time Integral 22.8 cm LVOT Cardiac Index 3804.0 cm?/min?m? AV Area Cont Eq vti 1.6 cm? AV Area Cont Eq pk 1.3 cm? MV Area PHT 5.2 cm? MR Peak Velocity 478.0 cm/s MR Peak Gradient 91.4 mmHg Mitral E Point Velocity 87.3 cm/s Mitral A Point Velocity 110.0 cm/s Mitral E to A Ratio 0.8 LV E' Lateral Velocity 7.5 cm/s Mitral E to LV E' Lateral Ratio 11.6 LV E' Septal Velocity 7.4 cm/s Mitral E to LV E' Septal Ratio 11.8 TR Peak Velocity 288.0 cm/s TR Peak Gradient 33.2 mmHg PV Peak Velocity 143.0 cm/s PV Peak Gradient 8.2 mmHg RVOT Peak Velocity 76.9 cm/s FINDINGS Left Ventricle Normal left ventricular size, wall thickness, systolic function. There is grade I diastolic dysfunction of the left ventricle (impaired relaxation pattern). The left ventricular ejection fraction is normal, estimated at 55- 60%. Right Ventricle The right ventricular fractional area change is normal. Estimated right ventricular systolic pressure is moderately elevated, 55 mmHg. Left Atrium The left atrial cavity size is moderately increased. Right Atrium The right atrial cavity size is mildly increased. Atrial Septum The interatrial septum appears normal with no evidence of a shunt. Aorta The aorta is normal by two-dimensional, color flow and Doppler interrogation. Mitral Valve Moderate mitral regurgitation. Mild thickening of the mitral valve leaflets. Mitral annular calcification. Aortic Valve Mild thickening of the aortic valve leaflets. Mild aortic valve regurgitation. Tricuspid Valve There is moderate tricuspid regurgitation. Pulmonic Valve Trivial pulmonic valve regurgitation. Vessels The pulmonary artery appears normal. The inferior vena cava pulmonary and hepatic veins appear normal. Pericardium The pericardium is normal by two-dimensional imaging. There is no significant pericardial effusion. CONCLUSIONS indication: A-fib assess Diastolic Dysfunction Normal left ventricular size and function. Approximate ejection fraction is 55-60%. RV appears normal with mild elevated RVSP of 45 mmHg LA is moderately increased Modeate MAC with mild to moderate MR AOV has thickening of leaflets and mild AI Moderate TR Zandra Perez (Electronically Signed) Final Date: 13 November 2024 10:05
--- NOTE | 2024-11-09 08:37 | PC.NURSE ---
Spoke with Dr. Flanagan, informed him patient had + stool for occult blood, also, IR unavailable and patient unable to get PICC line placed today.
--- NOTE | 2024-11-09 08:47 | PC.NURSE ---
Spoke with Gamal, pharmacist, informed him, Azithromax unavailable in the ER pyxis, per Gamal states medication timed out do to medication not given, per Gamal states once patient moved to room 258 he will re enter order.
[2024-11-09] MEDS: DEXTROSE 5%-WATER 250 ML 999 ML IV (09:33)
[2024-11-09] MEDS: CYANOCOBALAMIN INJ 1,000 mCg/ML VIAL 1000 MCG IM (09:42)
[2024-11-09 09:44] LABS: Basophils % (Auto) 0 % (0-2.5); Eosinophils % (Auto) 0 % (0-10); Hematocrit 23.5 % (36.0-46.0); Immature Granulocytes % (Auto) 0 % (0-0); Immature Granulocytes Auto 0.03 Thou/mm3 (0.00-0.00); Lymphocytes % (Auto) 14 % (10-50); Mean Corpuscular HGB Conc 30.6 g/dl (31.0-37.0); Mean Corpuscular Hemoglobin 37.5 pg (25.0-35.0); Mean Corpuscular Volume 122 fL (80-100); Monocytes # (Auto) 0.2 Thou/mm3 (0.0-0.8); Monocytes % (Auto) 4 % (0-12); Neutrophils # (Auto) 5.6 Thou/mm3 (1.8-7.7); Neutrophils % (Auto) 82 % (37-80); Nucleated Red Blood Cell # 2.03 Thou/mm3 (0.00-0.00); Nucleated Red Blood Cell % 30 /100 WBC (0); Red Blood Count 1.92 Miln/mm3 (4.00-5.20); White Blood Count 6.8 Thou/mm3 (3.6-11.0)
[2024-11-09] MEDS: FOLIC ACID INJ 1 MG/0.2 ML IVP (09:44)
[2024-11-09] MEDS: SODIUM CHLORIDE 0.45 % 500 ML 999 ML IV (09:49)
[2024-11-09 09:52] LABS: OBS Developer Expiration Date 12312026; OBS Performed By COOKT1; OBS QC OK? Yes; Occult Blood, Stool Positive (Negative)
[2024-11-09] MEDS: CEFEPIME INJ 1 GM in SODIUM CHLORIDE 0.9% (P) 50 ML IV (09:53)
[2024-11-09 09:55] LABS: Hemoglobin 7.2 g/dL (12.0-16.0); Platelet Count 45 Thou/mm3 (140-440)
[2024-11-09] MEDS: AZITHROMYCIN INJ 500 MG in SODIUM CHLORIDE 0.9% 250 ML 250 ML 250 MG IV (10:00)
[2024-11-09] MEDS: ALBUMIN HUMAN 25% IVPB 25 GM/100 ML BTL IV (10:00)
[2024-11-09 10:07] LABS: Albumin, Serum 1.9 gm/dL (3.4-4.8); Anion Gap 7 (7-16); BUN/Creatinine Ratio 26 Ratio (12-20); Blood Urea Nitrogen 46 mg/dL (9-23); Calcium 7.9 mg/dL (8.3-10.6); Calcium (Corrected) 9.6 mg/dL (8.5-10.1); Chloride 117 mMol/L (98-107); Creatinine (Component) 1.8 mg/dL (0.6-1.3); Glucose 61 mg/dL (74-106); Osmolality,Calculated 315 (275-295); Phosphorous 4.3 mg/dL (2.4-5.1); Potassium 4.1 mMol/L (3.4-5.1); Sodium 154 mMol/L (136-145); eGFR 27 See Note
[2024-11-09 10:12] LABS: Troponin I 0.331 ng/mL (0.0-0.045)
[2024-11-09 10:24] LABS: Slide Review Platelets confirmed
[2024-11-09 11:48] LABS: Path Review Blood Smear Sent to Pathologist
[2024-11-09 12:04] LABS: Lactate (Lactic Acid) 2.7 mMol/L (0.4-2.0)
[2024-11-09 12:10] LABS: Immature Reticulocyte Fraction 36.9 % (3.0-15.9); Reticulocyte % (Auto) 7.8 % (0.5-1.5); Reticulocyte Absolute Auto 151.3 Biln/L (25.0-75.0); Reticulocyte Hgb Content 38.3 pg (28.0-35.0)
[2024-11-09] MEDS: DEXTROSE 5%-WATER 1,000 ML 60 ML IV (12:19)
--- NOTE | 2024-11-09 12:24 | PD.NEPHCONS ---
History of Present Illness Data of Consult Consult date: 11/09/24 Requesting Physician: Taqueria Kong MD Primary Care Provider: Gopal Dawson MD Consult Narrative Reason for consult: WILLIE History of present illness: Informant daughter Ms. Harris is a 88-year-old [place] female with past medical history of gastric cancer status post partial gastrectomy on sunitinib malate (following with [facility] oncology), failure to thrive-s/p feeding tube, pancytopenia, chronic macrocytic anemia, paroxysmal A-fib (not on anticoagulation) and history of GI bleed presented to the emergency department yesterday complaining of fever and weakness and low oxygen saturation. Patient noted to be hypotensive. IV fluids were given in the emergency department. In the ER blood pressure was 70/35, heart rate 119 max temp was 101. Labs showed hemoglobin 8.5, platelets 50, sodium 149, BUN 45, creatinine 2.5, glucose 69, elevated LFTs. Pro-Alex 6.99. Flu and COVID-negative. Chest x-ray showed pneumonia. EKG sinus tach. Patient was given 2 L of fluid bolus, antibiotics Zosyn and doxycycline were initiated and subsequently transferred to telemetry. Patient currently seen in ICU on telemetry status. Renal consultation requested for worsening renal function. Home medications included allopurinol, sunitinib. cc:: cc: Taqueria Kong MD Review of Systems Review of Systems Narrative Review of Systems: Limited due to her mental status, very hard of hearing. Patient denies any chest pain. Past Medical History Past Medical History NEUROLOGIC: Positive Dementia; Negative Neurological Disorders, Cerebrovascular Accident, Transient Ischemic Attacks (TIA), Alzheimer's Disease, Parkinson's Disease, Brain Tumor, Meningitis, Seizures, Epilepsy, Multiple Sclerosis, Cerebral Palsy, Amyotrophic Lateral Sclerosis (ALS/Samaria Gehrig's), Guillain-Stewardson Syndrome, Spina Bifida, Paralysis, Peripheral Neuropathy, Alfaro's Palsy, Subdural Hematoma, Migraine, Head Trauma, Spinal Cord Injury or Traumatic Brain Injury CARDIAC: Positive Cardiac Arrhythmia, Atrial Fibrillation, Congestive Heart Failure and Edema; Negative Cardiac Disorders, Myocardial Infarction, Angina, Heart Murmur, Coronary Artery Disease, Atherosclerotic Heart Disease, Peripheral Vascular Disease, Hypercholesterolemia, Aneurysm, Congenital Heart Disease, Valvular Heart Disease, Rheumatic Fever, Cardiomyopathy, Pericarditis, Cellulitis, Deep Vein Thrombosis, Hypertension, Hypotension or Varicose Veins RESPIRATORY: Negative Chronic Obstructive Pulmonary Disease (COPD), Asthma, Bronchitis, Emphysema, Pneumonia, Pulmonary Fibrosis, Cystic Fibrosis, Tuberculosis, Pulmonary Embolism, Pulmonary Edema or Sleep Apnea GASTROINTESTINAL: Positive Gastrointestinal Disorders, Gastrointestinal Bleed and Hemorrhoids; Negative Hepatitis, Cirrhosis, Pancreatitis, Celiac Disease, Gall Bladder Disease, Esophageal Varices, Raya's Esophagus, Colitis, Ulcerative Colitis, Diverticulitis, Diverticulosis, Ulcer, Colorectal Cancer, Irritable Bowel, Crohn's Disease, Obstructive Bowel, Hiatal Hernia, Gastroesophageal Reflux Disease or Obesity GENITOURINARY: Negative Genitourinary Disorders, Renal Disease, Kidney Stones, Polycystic Kidney Disease, Neurogenic Bladder, Inguinal Hernia, Dialysis, Prostate Cancer or Benign Prostatic Hyperplasia REPRODUCTIVE: Negative Breast Cancer, Endometriosis, Genital Herpes, Gonorrhea, Pelvic Inflammatory Disease, Previous Pregnancies, Syphilis, Testicular Cancer or Uterine Prolapse MUSCULOSKELETAL: Negative Musculoskeletal Disorders, Muscular Dystrophy, Myasthenia Gravis, Marfan's Syndrome, Bone Cancer, Arthritis, Rheumatoid Arthritis, Osteoporosis, Degenerative Disk Disease, Gout, Scoliosis, Carpal Tunnel Syndrome, Fibromyalgia, Fractures, Degenerative Joint Disease, Osteomyelitis or Poliovirus ENT: Negative Cataracts, Glaucoma, Blind, Retinal Detachment, Macular Degeneration, Ear Infection, Deafness, Head Trauma or Eye Prosthesis ENDOCRINE: Negative Endocrine Disorders, Diabetes Mellitus Type 1, Diabetes Mellitus Type 2, Hypoglycemia, [place]'s Syndrome, Montmorency's Disease, Hyperthyroidism, Hypothyroidism, Parathyroid Disease, Pituitary Disease, Systemic Lupus Erythematosus, Syndrome of Inappropriate Antidiuretic Hormone (SIADH), Adrenal Disease or Graves' Disease HEMATOLOGIC: Positive Blood Disorders, Anemia and Clotting Problems; Negative Leukemia, Hemophilia, Thalassemia or Sickle Cell Disease PSYCHO/SOCIAL: Positive Eating Disorder; Negative Psychiatric Problems, Schizophrenia, Recreational Drug Use, Bipolar Disorder, Depression, Anxiety, Behavior Problems, Self-Mutilation, Attention Deficit Disorder, Attention Deficit Hyperactivity Disorder, Depression or Post Traumatic Stress Disorder OTHER HISTORY: Positive Hospitalization, Chemotherapy and Cancer; Negative Autoimmune Disease, Down Syndrome, Autism, Developmental Delay, Shingles, Falls, Blood Transfusions, Blood Transfusion Reaction, Anesthesia Reactions, Organ Transplant, Radiation Therapy, Hyperbaric Therapy, MRSA, VRSA, Vancomycin-Resistant Enterococci, Human Immunodeficiency Virus (HIV), Chicken Pox, Measles, Mumps, Rubella (Malay Measles), Pertussis, Clostridium Difficile, Breast Cancer, Cervical Cancer, Colorectal Cancer, Lung Cancer, Ovarian Cancer, Prostate Cancer or Testicular Cancer Family History FAMILY HISTORY: Negative Family Psychiatric Problems, Family Respiratory Disorders, Family Cardiac Disorders, Family Gastrointestinal Problems, Family Cancer, Family Surgery or Family Anesthesia Reaction Surgical History SURGICAL: Positive Abdominal Surgery and Gastrostomy; Negative Cardiac Surgery, Open Heart Surgery, Coronary Artery Bypass Graft, Valve Replacement, Vascular Surgery, Coronary Stent, Cardiac Catheterization, Pacemaker, Angiogram, Auto Implanted Cardiovert Defib, Carotid Endarterectomy, Endocrine Surgery, Thyroidectomy, Ear Surgery, Tympanostomy Tube, Eye Surgery, Nose Surgery, Oral Surgery, Tonsillectomy, Adenoidectomy, Cochlear Implant, Corneal Transplant, Throat Surgery, Tracheostomy, Gastric Bypass Surgery, Bowel Surgery, Nephrectomy, Transurethral Resection, Joint Replacement, Amputation, Open Reduction Internal Fixation, Arthroscopy, Neurologic Surgery, Brain Shunt, Mastectomy, Lumpectomy, Hysterectomy, Tubal Ligation, Section, Vasectomy or Organ Transplant OTHER SURGICAL HX: As in the history of present illness Social History SMOKING STATUS: Never smoker Past Medical History Comments PMH COMMENT: PMH: Positive for gastric cancer status post partial gastrectomy on sunitinib malate (following with [facility] oncology), failure to thrive, pancytopenia, chronic macrocytic anemia, paroxysmal A-fib (not on anticoagulation) and history of GI bleed NEUROLOGIC: Positive Dementia CARDIAC: Positive Atrial Fibrillation (Paroxsymal) GASTROINTESTINAL: Positive Gastrointestinal Disorders (Linitus plastica) and Gastrointestinal Bleed HEMATOLOGIC: Positive Blood Disorders (Pancytopenia) and Anemia (Macrocytic secondary to partial gastrectomy) PSYCHO/SOCIAL: Positive Eating Disorder (anorexia) OTHER HISTORY: Positive Blood Transfusions PSHx: Partial gastrectomy Allergies: No known allergies Social history: -Smoking: Denies -Alcohol Use: Denies -Illicit Drug Use: Denies Family History: Denies pertinent family history Meds Home Medications and Allergies Home Medications ?Medication ?Instructions ?Recorded ?Confirmed ?Type sunitinib malate 25 mg capsule 25 mg PO DAILY 08/11/24 10/07/24 History allopurinol 100 mg tablet 100 mg PO DAILY 10/07/24 10/07/24 History (Zyloprim) Allergies Allergy/AdvReac Type Severity Reaction Status Date / Time No Known Allergies Allergy Verified 11/08/24 22:58 Exam Vital Signs Temp Pulse Resp BP Pulse Ox O2 Del Method O2 Flow Rate 36.1 C 96 12 135/68 H 99 Nasal Cannula 2 11/09/24 09:00 11/09/24 09:00 11/09/24 09:00 11/09/24 09:00 11/09/24 09:00 11/09/24 09:00 11/09/24 09:00 Narrative Exam GENERAL APPEARANCE: Elderly lady currently seen in telemetry. Daughter at bedside. NECK: dry mucosa CARDIOVASCULAR: Heart regular, no murmurs LUNGS/CHEST: Chest clear to auscultation. No rales, rhonchi, wheezing ABDOMEN: Soft, nontender, nondistended. No masses. Normal bowel sounds. Patient has a feeding tube EXTREMITIES: No edema, clubbing or cyanosis. SKIN: Skin exam normal without any rashes MUSCULOSKELETAL: In bed NEUROLOGICAL : Awake, tired Results Labs 11/09/24 18:43 11/09/24 18:43 Labs: Short CBC 11/08/24 11/09/24 Range/Units 23:37 08:15 WBC 4.2 6.8 D (3.6-11.0) Thou/mm3 Hgb 8.5 L 7.2 L (12.0-16.0) g/dL Hct 27.9 L 23.5 L (36.0-46.0) % Plt Count 50 L 45 L (140-440) Thou/mm3 BMP 11/08/24 11/09/24 23:32 08:15 Sodium 149 H 154 H Potassium 4.2 4.1 Chloride 111 H 117 H Carbon Dioxide 26.1 30.0 BUN 45 H 46 H Creatinine 2.0 H 1.8 H Glucose 69 L 61 L Calcium 8.3 7.9 L Cardiac Enzymes 11/09/24 11/09/24 Range/Units 03:01 08:15 Troponin I 0.404 H* 0.331 H* (0.0-0.045) ng/mL Liver Function 11/08/24 11/09/24 Range/Units 23:32 08:15 Total Bilirubin 1.1 (0.3-1.2) mg/dL AST 105 H (0-34) U/L ALT 20 (10-49) U/L Alkaline Phosphatase 127 H (46-116) U/L Albumin 2.0 L 1.9 L (3.4-4.8) gm/dL Urine 11/09/24 Range/Units 01:03 Urine Color Yellow (Lt Yel-Yel) Urine Clarity Clear (Clear/Hazy) Urine pH 6.0 (5.0-7.0) Ur Specific [place] 1.015 (1.001-1.035) Urine Protein Trace (Neg - Trace) Urine Glucose (UA) Negative (Negative) Assessment & Plan Assessment and plan (1) Acute renal failure (ARF): Status: Acute Assessment and plan: Acute renal failure secondary to prerenal azotemia. Creatinine trending down with IV fluids. Blood pressure 116/80. Hemoglobin seems to be significantly low. Dr. Ledesma was consulted for possible GI bleed. Continue with fluid resuscitation, packed red blood cells. (2) Hypernatremia: Status: Acute Assessment and plan: Continue with the D5W. Increase the rate to 100 mL/h. Replace electrolytes. (3) Septic shock: Status: Acute Assessment and plan: Broad-spectrum antibiotics, fluids (4) Atrial fibrillation with RVR: Status: Acute Assessment and plan: Heart rate currently 88 (5) Thrombocytopenia: Status: Acute Assessment and plan: Platelets 43. Needs platelet transfusion as needed (6) Acute GI bleeding: Status: Acute Assessment and plan: Dr. Ledesma was consulted (7) Hypotension: Status: Acute Assessment and plan: Continue with IV fluids Additional Assessment & Plan Additional Plan: Thank you Dr. Kong for allowing me to participate in the care of Mr. Harris
[2024-11-09 12:32] LABS: Total Iron Binding Capacity 155 mcg/dL (250-425)
[2024-11-09 12:42] LABS: Iron 44 mcg/dL (50-170); Percent Iron Saturation 28 % (20-55); Unsaturated Iron Binding 111 (225-295)
[2024-11-09 12:55] LABS: Anion Gap 11 (7-16); BUN/Creatinine Ratio 29 Ratio (12-20); Blood Urea Nitrogen 49 mg/dL (9-23); Calcium 7.7 mg/dL (8.3-10.6); Calcium (Corrected) 9.3 mg/dL (8.5-10.1); Carbon Dioxide 26.7 mMol/L (20.0-31.0); Chloride 114 mMol/L (98-107); Creatinine (Component) 1.7 mg/dL (0.6-1.3); Estimated Creatinine Clearance 15.9 mL/min (>60); Glucose 61 mg/dL (74-106); Osmolality,Calculated 312 (275-295); Phosphorous 3.9 mg/dL (2.4-5.1); Potassium 3.8 mMol/L (3.4-5.1); Sodium 152 mMol/L (136-145); eGFR 29 See Note
[2024-11-09] MEDS: DEXTROSE 5% IV ×2 (13:15→21:47)
[2024-11-09] MEDS: WATER IV ×2 (13:15→21:47)
[2024-11-09] MEDS: PIPER IV ×2 (13:15→21:47)
[2024-11-09] MEDS: TAZO IV ×2 (13:15→21:47)
--- NOTE | 2024-11-09 13:23 | ESPR_ITS ---
<Statement entered by Chinedu Ashley MD - 11/19/24 08:03> I reviewed above note and agree with findings and plans. I have also personally examined the patient with medicine team and went over assessment and plan with medical team including automotive internet sales consultant and resident physician. Documentation for date of: 11/09/24 Subjective Subjective Interval history: HPI is limited as patient is poor historian Pt examined at bedside today. No acute overnight events. Pt reports she is doing okay. She is currently improving WBC 6.8, Hgb 7.2, sodium 152, potassium 3.8, BUN/Cr 49 and 1.7 respectively. No other complaints at this time. Exam Vital Signs Temp Pulse Resp BP Pulse Ox O2 Del Method O2 Flow Rate 97.0 F 83 12 125/74 99 Nasal Cannula 2 11/09/24 12:00 11/09/24 12:00 11/09/24 12:00 11/09/24 12:00 11/09/24 12:00 11/09/24 12:00 11/09/24 12:00 Narrative Exam General: AAOx3, cachexia, temporal muscle wasting bilat, NAD, clavicles present with little to no muscle surrounding, weak and frail elderly woman HEENT: Dry mucous membranes, conjunctiva clear, EOMI, PERRLA, Cardiovascular: S1, S2, radial pulses +2 bilat, regular rhythm and rate Pulmonary: CTAB bilat no cough, no wheezing GI: No tenderness to light or deep palpitation, no guarding, rigidity, rebound tenderness or distension Extremities: No presence of trace or pitting edema in lower extremities bilaterally, dorsalis pedis pulses +2 bilaterally, little muscle definition in LE Neuro: AAOx3, no focal motor or sensory deficits in the UE or LE bilat Psych: Able to somewhat cooperate Objective Labs 11/10/24 07:57 11/10/24 06:12 Labs: Laboratory Results - last 24 hr 11/08/24 11/08/24 11/09/24 23:32 23:37 01:03 WBC 4.2 RBC 2.27 L Hgb 8.5 L Hct 27.9 L MCV 123 H MCH 37.4 H MCHC 30.5 L RDW Std Deviation 122.2 H Plt Count 50 L Neut % (Auto) 76 Lymph % (Auto) 15 [place] % (Auto) 7 Eos % (Auto) 0 Baso % (Auto) 1 Neut # (Auto) 3.2 Lymph # (Auto) 0.6 L [place] # (Auto) 0.3 Eos # (Auto) 0.0 Baso # (Auto) 0.0 Immature Gran # (Auto) 0.04 H Absolute Nucleated RBC 2.62 H Immature Gran % 1 H Nucleated RBC % 63 H Smear Path Review Retic Count (auto) Absolute Retic Immature Retic Fraction Retic Hgb Content CHr PT INR APTT Sodium 149 H Potassium 4.2 Chloride 111 H Carbon Dioxide 26.1 Anion Gap 12 BUN 45 H Creatinine 2.0 H Estim Creat Clear Calc 13.5 L eGFR 24 L BUN/Creatinine Ratio 23 H Glucose 69 L Calculated Osmolality 305 H Lactic Acid 5.6 H* Calcium 8.3 Corrected Calcium 9.9 Phosphorus Magnesium Iron TIBC Iron Saturation Unsat Iron Binding Total Bilirubin 1.1 AST 105 H ALT 20 Alkaline Phosphatase 127 H Lactate Dehydrogenase Troponin I B-Natriuretic Peptide Total Protein 6.6 Albumin 2.0 L Globulin 4.6 H Albumin/Globulin Ratio 0.4 L Lipase Procalcitonin 6.99 H Ur Collection Type Voided Urine Color Yellow Urine Clarity Clear Urine pH 6.0 Ur Specific [place] 1.015 Urine Protein Trace Urine Glucose (UA) Negative Urine Ketones Negative Urine Blood Negative Urine Nitrite Negative Urine Bilirubin Negative Urine Urobilinogen (Auto) Negative Ur Leukocyte Esterase Negative Urine RBC < 1 Urine WBC 3 Ur Squamous Epith Cells < 1 Urine Bacteria None Hyaline Casts 1 Ur Culture Indicated? Not Indicated Stool Occult Blood Misc Test Result Platelets confirmed Blood Type Antibody Screen Blood Bank Wristband ID 11/09/24 11/09/24 11/09/24 03:01 07:00 08:15 WBC 6.8 D RBC 1.92 L* Hgb 7.2 L Hct 23.5 L MCV 122 H MCH 37.5 H MCHC 30.6 L RDW Std Deviation Not Performed. Plt Count 45 L Neut % (Auto) 82 H Lymph % (Auto) 14 [place] % (Auto) 4 Eos % (Auto) 0 Baso % (Auto) 0 Neut # (Auto) 5.6 Lymph # (Auto) 1.0 [place] # (Auto) 0.2 Eos # (Auto) 0.0 Baso # (Auto) 0.0 Immature Gran # (Auto) 0.03 H Absolute Nucleated RBC 2.03 H Immature Gran % 0 Nucleated RBC % 30 H Smear Path Review Sent to Pathologist Retic Count (auto) Absolute Retic Immature Retic Fraction Retic Hgb Content CHr PT 17.3 H D INR 1.6 H APTT 37.4 H Sodium 154 H Potassium 4.1 Chloride 117 H Carbon Dioxide 30.0 Anion Gap 7 BUN 46 H Creatinine 1.8 H Estim Creat Clear Calc 15.0 L eGFR 27 L BUN/Creatinine Ratio 26 H Glucose 61 L Calculated Osmolality 315 H Lactic Acid 2.6 H Calcium 7.9 L Corrected Calcium 9.6 Phosphorus 3.8 4.3 Magnesium 2.0 Iron TIBC Iron Saturation Unsat Iron Binding Total Bilirubin AST ALT Alkaline Phosphatase Lactate Dehydrogenase 497 H Troponin I 0.404 H* 0.331 H* B-Natriuretic Peptide 294 H Total Protein Albumin 1.9 L Globulin Albumin/Globulin Ratio Lipase 21 Procalcitonin Cancelled Ur Collection Type Urine Color Urine Clarity Urine pH Ur Specific [place] Urine Protein Urine Glucose (UA) Urine Ketones Urine Blood Urine Nitrite Urine Bilirubin Urine Urobilinogen (Auto) Ur Leukocyte Esterase Urine RBC Urine WBC Ur Squamous Epith Cells Urine Bacteria Hyaline Casts Ur Culture Indicated? Stool Occult Blood Positive A Misc Test Result Platelets confirmed Blood Type A Positive Antibody Screen NEGATIVE Blood Bank Wristband ID Yes 11/09/24 11/09/24 09:45 11:45 WBC RBC Hgb Hct MCV MCH MCHC RDW Std Deviation Plt Count Neut % (Auto) Lymph % (Auto) [place] % (Auto) Eos % (Auto) Baso % (Auto) Neut # (Auto) Lymph # (Auto) [place] # (Auto) Eos # (Auto) Baso # (Auto) Immature Gran # (Auto) Absolute Nucleated RBC Immature Gran % Nucleated RBC % Smear Path Review Retic Count (auto) 7.8 H Absolute Retic 151.3 H Immature Retic Fraction 36.9 H Retic Hgb Content CHr 38.3 H PT INR APTT Sodium 152 H Potassium 3.8 Chloride 114 H Carbon Dioxide 26.7 Anion Gap 11 BUN 49 H Creatinine 1.7 H Estim Creat Clear Calc 15.9 L eGFR 29 L BUN/Creatinine Ratio 29 H Glucose 61 L Calculated Osmolality 312 H Lactic Acid 2.7 H Calcium 7.7 L Corrected Calcium 9.3 Phosphorus 3.9 Magnesium Iron 44 L TIBC 155 L Iron Saturation 28 Unsat Iron Binding 111 L Total Bilirubin AST ALT Alkaline Phosphatase Lactate Dehydrogenase Troponin I B-Natriuretic Peptide Total Protein Albumin 2.0 L Globulin Albumin/Globulin Ratio Lipase Procalcitonin Ur Collection Type Urine Color Urine Clarity Urine pH Ur Specific [place] Urine Protein Urine Glucose (UA) Urine Ketones Urine Blood Urine Nitrite Urine Bilirubin Urine Urobilinogen (Auto) Ur Leukocyte Esterase Urine RBC Urine WBC Ur Squamous Epith Cells Urine Bacteria Hyaline Casts Ur Culture Indicated? Stool Occult Blood Misc Test Result Blood Type Antibody Screen Blood Bank Wristband ID Quality Measures Quality Measures sepsis Current suspected stage: sepsis Possible source: pulmonary and genitourinary Blood cultures ordered: yes Antibiotic ordered: Yes Advance care planning discussed with:: patient Assessment & Plan Assessment Current Active Medications: Generic Name Dose Route Start Last Admin Trade Name Freq PRN Reason Stop Dose Admin Acetaminophen 650 mg 11/09/24 08:42 Acetaminophen 325 Mg Tablet PO 12/09/24 01:01 Q6H PRN Fever >100 Folic Acid 1 mg 11/09/24 09:00 11/09/24 09:44 Folic Acid Inj 1 Mg/0.2 Ml IVP 12/09/24 08:59 1 mg QDAY LAKESHA Administration Dextrose 1,000 mls @ 60 mls/hr 11/09/24 09:00 11/09/24 12:19 D5w IV 11/10/24 01:39 60 mls/hr .[id number] ONE Administration Doxycycline Hyclate 100 mg/ 100 mls @ 100 mls/hr 11/09/24 21:00 Dextrose IV 11/16/24 20:59 BID LAKESHA Protocol Piperacillin Sod/Tazobactam 50 mls @ 12.5 mls/hr 11/09/24 11:15 11/09/24 13:15 Sod 3.375 gm/ Dextrose IV 11/16/24 11:14 12.5 mls/hr Q12HR LAKESHA Administration Protocol Vitamin B Complex/Vit C/Folic Acid 1 tab 11/09/24 09:00 11/09/24 09:45 Vit B12/Vit C/Fa (Nephrovite) Tablet PO 12/09/24 08:59 Not Given QDAY LAKESHA Plan Assessment Stefani is a 88 y/o Tagalog speaking female with PMHx of gastric cancer (Diagnosed 2008), s/p partial gastrectomy (2008) (on Sunitinib malate, maintenance chemo, follows [facility] oncology, Dr. Hall?), chronic microcytic anemia, pancytopenia, failure to thrive, paroxysmal afib (not on A/C), hx of GI bleed, and gout who is admitetd for sepsis 2/2 bibasilar pneumonia. #Acute hypoxic respiratory failure #Sepsis, secondary to #Bilateral bibasilar pneumonia #Lactic acidosis, improving Patient presented with fever, shortness of breath, low SpO2, hypotension. Fever of 101 noted at home, chest x-ray on presentation in ED shows bibasilar pneumonia, patient requiring supplemental oxygen to maintain SpO2 more than 92. On admission lactate 5.6, procal 6.99, high suspicion of bacterial pneumonia. Patient was significantly hypotensive on presentation, was given 2 L bolus in ED. Patient given Zosyn and doxycycline x 1 in ED, sepsis alert called. Plan: ? IV Zoysn and Doxy ? Flu and RSV negative in ED ? Follow MRSA nasal screen ? Follow blood culture and urine culture ? Supplemental oxygen as needed ? Trend Lactate #Acute on chronic kidney injury #CKD stage IIIa On presentation BUN 45, creatinine 2.0, GFR 24. Baseline BUN 36, creatinine 1.0 GFR 55 Patient was given 2 L NS bolus in ED, WILLIE likely prerenal in setting of sepsis Plan: -D5 maintenance 60 cc -Avoid nephrotoxic agents -Renally dose medications #Hyperosmolar Hypernatremia Likely related to pt getting too much normal saline with sepsis bolus Plan: -D5 Maintenance 60 cc/hr -Sodium correction goal 8 to 10 mEq in 24 hours -Renal panel q6h #? GI bleed FOBT positive Pt has hx of GI Bleed Pt also had a dark bowel movemenet this morning Plan: -GI consult #NSTEMI type II, likely related to demand ischemia, resolved Troponin 0.404 -> 0.331 #Failure to thrive status post PEG tube placement Patient has history of gastric cancer status post surgery, had failure to thrive postop, had PEG tube placed for nutrition supplementation. Per family patient has good p.o. intake, requesting discontinuation of PEG tube. Plan: -Referral to speech therapy -NPO now -Dietitian consult -GI consult, appreciated recs #Macrocytic anemia #Thrombocytopenia Patient's hemoglobin 8.5, MCV 123 on presentation, platelet count 50,000. Patient has chronic macrocytic anemia secondary to partial gastrectomy. Plan: -Trend with CBC -Folate 1 mg qday -B12 Injection #Paroxysmal A-fib Patient has history of paroxysmal A-fib, was discharged on metoprolol succinate 100 mg Plan: -Pending med reconciliation, consider resuming metoprolol succinate 100 mg in a.m. -Keep potassium more than 4, magnesium more than 2 -Telemetry monitoring -Holding A/C in setting of possible GI bleed #Gastric cancer by history #History of GI bleed Plan: Resumed home Sunitinib malate 25 mg #Health Maintenance Disposition: Telemetry DVT prophylaxis: SCDs GI prophylaxis: Protonix Diet: NPO CODE STATUS: Full Patient seen and care discussed with my senior resident, Dr. Dixon, and my attending physician, Dr. Gabi Flanagan, PGY-1 LPatient is a 88-year-old Tagalog speaking female admitted for acute hypoxic respiratory failure and sepsis secondary to bibasilar pneumonia. Flu and RSV negative in the ED. She was also found to have WILLIE, hypernatremia and GI bleed. FOBT positive on admission, GI Dr. Ledesma consulted for further evaluation. Patient does have a history of gastric cancer s/p partial gastrectomy. She was also noted to have macrocytic anemia Hb 8.5, MCV 120s. Plan: - Patient started on IV Zosyn and doxycycline. Follow-up MRSA nasal screen. - Started on maintenance D5W at 60 cc/h for WILLIE and hyponatremia. Will follow 4-hour renal panel checks. - Follow-up GI recommendations. Started folate 1 mg daily. Vitamin B12 x 1 given. - Will hold all anticoagulation for paroxysmal A-fib until further GI evaluation. Patient examined and case discussed with the team including attending physician. Note reviewed, I agree with the care plan as documented. - Steve Dixon MD, PGY 2 L
--- NOTE | 2024-11-09 14:30 | PCS.ST ---
NPO for possible endoscopy. Will see for Swallow Evaluation in AM.
[2024-11-09 15:09] LABS: Reflex Lactate? Y
--- NOTE | 2024-11-09 16:04 | PD.IMCONS ---
HPI Data of Consult Requesting Physician: Taqueria Kong MD Primary Care Provider: Gopal Dawson MD Consult Narrative Reason for consult: Melena FOBT positiveH/H 7.2 and 23.5 History of present illness: 88 years old female in the ICU have been consulted for melanotic stool FOBT positive in hemoglobin hematocrit dropping to 7.2 and 23.5 Patient does have a history of partial gastrectomy for gastric adenocarcinoma and failure to thrive requiring PEG placement during her previous hospitalization Patient had melanotic stools on this admission and FOBT positive She has chronic atrial fibrillation was on Eliquis which has been held since her last admission because of the GI bleed Patient is admitted with chief complaint of fever respiratory failure hypotension and has bibasilar pneumonia currently on IV Zosyn According to the family members present in the room at the time of evaluation patient is still not having enough food and she needs the gastrostomy tube to be kept although they do complain that local pain from the gastrostomy tube cc:: cc: Taqueria Kong MD Review of Systems Review of Systems Systems Reviewed: All systems reviewed, normal except as documented Past Medical History Surgical History OTHER SURGICAL HX: As in the history of present illness Meds Home Medications and Allergies Home Medications ?Medication ?Instructions ?Recorded ?Confirmed ?Type sunitinib malate 25 mg capsule 25 mg PO DAILY 08/11/24 10/07/24 History allopurinol 100 mg tablet 100 mg PO DAILY 10/07/24 10/07/24 History (Zyloprim) Allergies Allergy/AdvReac Type Severity Reaction Status Date / Time No Known Allergies Allergy Verified 11/08/24 22:58 Exam Vital Signs Temp Pulse Resp BP Pulse Ox O2 Del Method O2 Flow Rate 97.0 F 83 12 125/74 99 Nasal Cannula 2 11/09/24 12:00 11/09/24 12:00 11/09/24 12:00 11/09/24 12:00 11/09/24 12:00 11/09/24 12:11/09/24 12:00 Constitutional Comments: Chronically ill-appearing Routine Respiratory Exam Comments: Normal to auscultation Routine Abdominal Exam Comments: Gastrostomy tube in left upper quadrant somewhat tender active bowel sounds Results Labs 11/09/24 08:15 11/09/24 11:45 Labs: Short CBC 11/08/24 11/09/24 Range/Units 23:37 08:15 WBC 4.2 6.8 D (3.6-11.0) Thou/mm3 Hgb 8.5 L 7.2 L (12.0-16.0) g/dL Hct 27.9 L 23.5 L (36.0-46.0) % Plt Count 50 L 45 L (140-440) Thou/mm3 BMP 11/08/24 11/09/24 11/09/24 23:32 08:15 11:45 Sodium 149 H 154 H 152 H Potassium 4.2 4.1 3.8 Chloride 111 H 117 H 114 H Carbon Dioxide 26.1 30.0 26.7 BUN 45 H 46 H 49 H Creatinine 2.0 H 1.8 H 1.7 H Glucose 69 L 61 L 61 L Calcium 8.3 7.9 L 7.7 L Cardiac Enzymes 11/09/24 11/09/24 Range/Units 03:01 08:15 Troponin I 0.404 H* 0.331 H* (0.0-0.045) ng/mL Liver Function 11/08/24 11/09/24 11/09/24 Range/Units 23:32 08:15 11:45 Total Bilirubin 1.1 (0.3-1.2) mg/dL AST 105 H (0-34) U/L ALT 20 (10-49) U/L Alkaline Phosphatase 127 H (46-116) U/L Albumin 2.0 L 1.9 L 2.0 L (3.4-4.8) gm/dL Urine 11/09/24 Range/Units 01:03 Urine Color Yellow (Lt Yel-Yel) Urine Clarity Clear (Clear/Hazy) Urine pH 6.0 (5.0-7.0) Ur Specific [place] 1.015 (1.001-1.035) Urine Protein Trace (Neg - Trace) Urine Glucose (UA) Negative (Negative) Assessment and Plan Additional Assessment & Plan Additional Plan: # Melena # FOBT positive # Acute posthemorrhagic anemia Plan Fiberoptic esophagogastroduodenoscopy with possible biopsy possible therapeutic intervention under intravenous moderate sedation Informed consent obtained from the transliterator and the family and this has been scheduled for today At the moment family intends to keep the PEG tube and we will reevaluate the stomach endoscopically on the inside serial CBC IV Protonix Will follow the patient Other medical problems include # Paroxysmal atrial fibrillation rate controlled not on Eliquis at this time # Gastric adenocarcinoma requiring partial gastrectomy at [facility] patient does see oncology there # Failure to thrive Thank you very much for the opportunity to participate in the care of this patient
[2024-11-09 16:57] LABS: Lactic Acid, 3 HR 2.5 mMol/L (0.4-2.0)
[2024-11-09 18:49] LABS: Lactate (Lactic Acid) 1.8 mMol/L (0.4-2.0)
[2024-11-09 19:17] LABS: Anion Gap 8 (7-16); BUN/Creatinine Ratio 27 Ratio (12-20); Basophils % (Auto) 0 % (0-2.5); Blood Urea Nitrogen 43 mg/dL (9-23); Calcium 7.7 mg/dL (8.3-10.6); Calcium (Corrected) 9.3 mg/dL (8.5-10.1); Carbon Dioxide 28.2 mMol/L (20.0-31.0); Chloride 113 mMol/L (98-107); Creatinine (Component) 1.6 mg/dL (0.6-1.3); Eosinophils % (Auto) 0 % (0-10); Estimated Creatinine Clearance 16.9 mL/min (>60); Glucose 76 mg/dL (74-106); Immature Granulocytes % (Auto) 1 % (0-0); Immature Granulocytes Auto 0.03 Thou/mm3 (0.00-0.00); Lymphocytes # (Auto) 0.7 Thou/mm3 (1.0-4.8); Lymphocytes % (Auto) 13 % (10-50); Mean Corpuscular Hemoglobin 37.6 pg (25.0-35.0); Mean Corpuscular Volume 121 fL (80-100); Monocytes # (Auto) 0.2 Thou/mm3 (0.0-0.8); Monocytes % (Auto) 3 % (0-12); Neutrophils # (Auto) 4.1 Thou/mm3 (1.8-7.7); Neutrophils % (Auto) 82 % (37-80); Nucleated Red Blood Cell # 1.47 Thou/mm3 (0.00-0.00); Nucleated Red Blood Cell % 30 /100 WBC (0); Osmolality,Calculated 305 (275-295); Phosphorous 3.5 mg/dL (2.4-5.1); Potassium 3.6 mMol/L (3.4-5.1); RDW Standard Deviation 117.4 fL (36.4-46.3); Sodium 149 mMol/L (136-145); White Blood Count 4.9 Thou/mm3 (3.6-11.0); eGFR 31 See Note
[2024-11-09 19:20] LABS: Hemoglobin 6.7 g/dL (12.0-16.0); Red Blood Count 1.78 Miln/mm3 (4.00-5.20)
[2024-11-09 19:21] LABS: Hematocrit 21.6 % (36.0-46.0); Platelet Count 43 Thou/mm3 (140-440)
--- NOTE | 2024-11-09 19:31 | PD.RESCONSUL ---
HPI Data of Consult Requesting Physician: Taqueria Kong MD Admitting Provider: Taqueria Kong MD Attending Provider: Taqueria Kong MD Primary Care Provider: Gopal Dawson MD Consult Narrative History of present illness: Patient is a 88-year-old tagalog-speaking female with past medical history of gastric cancer status post partial gastrectomy on sunitinib malate (following with [facility] oncology), failure to thrive, pancytopenia, chronic macrocytic anemia, paroxysmal A-fib (not on anticoagulation) and history of GI bleed who presented to [facility] emergency department on 11/08/2024 with a chief complaint of fever, weakness and low blood pressure. Patient had EGD done by Dr. Ledesma who noticed patient was still having active GI bleed and recommended upgrading to ICU for closer monitoring. Vitals are currently stable, but given active GI bleed patient will be upgraded to ICU for closer monitoring. Patient will be receiving 2 units of PRBCs and surgery has been consulted. cc:: cc: Taqueria Kong MD Exam Vital Signs Temp Pulse Resp BP Pulse Ox O2 Del Method O2 Flow Rate 97.7 F 88 15 116/80 92 L Nasal Cannula 3 11/09/24 16:00 11/09/24 18:10 11/09/24 18:10 11/09/24 18:10 11/09/24 18:10 11/09/24 16:00 11/09/24 18:10 Narrative Exam General: NAD, resting comfortably in bed. Elderly frail female. Cachectic. AAOx3. Cardiovascular: Regular rate and rhythm, no murmurs, rubs, or gallops. Pulmonary: Chest clear to auscultation bilaterally, no wheezing or rhonchi. GI: No tenderness to light or deep palpitation, no guarding, rigidity, rebound tenderness or distension. Extremities: No edema noted. Results Labs 11/09/24 18:43 11/09/24 18:43 Labs: Short CBC 11/08/24 11/09/24 11/09/24 Range/Units 23:37 08:15 18:43 WBC 4.2 6.8 D 4.9 (3.6-11.0) Thou/mm3 Hgb 8.5 L 7.2 L 6.7 L* (12.0-16.0) g/dL Hct 27.9 L 23.5 L 21.6 L* (36.0-46.0) % Plt Count 50 L 45 L 43 L (140-440) Thou/mm3 BMP 11/08/24 11/09/24 11/09/24 23:32 08:15 11:45 Sodium 149 H 154 H 152 H Potassium 4.2 4.1 3.8 Chloride 111 H 117 H 114 H Carbon Dioxide 26.1 30.0 26.7 BUN 45 H 46 H 49 H Creatinine 2.0 H 1.8 H 1.7 H Glucose 69 L 61 L 61 L Calcium 8.3 7.9 L 7.7 L 11/09/24 18:43 Sodium 149 H Potassium 3.6 Chloride 113 H Carbon Dioxide 28.2 BUN 43 H Creatinine 1.6 H Glucose 76 Calcium 7.7 L Cardiac Enzymes 11/09/24 11/09/24 Range/Units 03:01 08:15 Troponin I 0.404 H* 0.331 H* (0.0-0.045) ng/mL Liver Function 11/08/24 11/09/24 11/09/24 Range/Units 23:32 08:15 11:45 Total Bilirubin 1.1 (0.3-1.2) mg/dL AST 105 H (0-34) U/L ALT 20 (10-49) U/L Alkaline Phosphatase 127 H (46-116) U/L Albumin 2.0 L 1.9 L 2.0 L (3.4-4.8) gm/dL 11/09/24 Range/Units 18:43 Total Bilirubin (0.3-1.2) mg/dL AST (0-34) U/L ALT (10-49) U/L Alkaline Phosphatase (46-116) U/L Albumin 2.0 L (3.4-4.8) gm/dL Urine 11/09/24 Range/Units 01:03 Urine Color Yellow (Lt Yel-Yel) Urine Clarity Clear (Clear/Hazy) Urine pH 6.0 (5.0-7.0) Ur Specific [place] 1.015 (1.001-1.035) Urine Protein Trace (Neg - Trace) Urine Glucose (UA) Negative (Negative) Quality Measures Quality Measures sepsis Current suspected stage: sepsis Possible source: pulmonary and genitourinary Blood cultures ordered: yes Antibiotic ordered: Yes Advance care planning discussed with:: child Medications Home Medications and Allergies Home Medications ?Medication ?Instructions ?Recorded ?Confirmed ?Type sunitinib malate 25 mg capsule 25 mg PO DAILY 08/11/24 10/07/24 History allopurinol 100 mg tablet 100 mg PO DAILY 10/07/24 10/07/24 History (Zyloprim) Allergies Allergy/AdvReac Type Severity Reaction Status Date / Time No Known Allergies Allergy Verified 11/08/24 22:58 Visit Medications Acetaminophen (Acetaminophen 325 Mg Tablet) 650 mg PO Q6H PRN PRN Reason: Fever >100 Stop: 12/09/24 01:01 Allopurinol (Allopurinol 100 Mg Tablet) 100 mg PO DAILY [facility] Stop: 12/09/24 13:59 Last Admin: 11/09/24 14:04 Dose: Not Given Folic Acid (Folic Acid Inj 1 Mg/0.2 Ml) 1 mg IVP QDAY [facility] Stop: 12/09/24 08:59 Last Admin: 11/09/24 09:44 Dose: 1 mg Doxycycline Hyclate 100 mg/ (Dextrose) 100 mls @ 100 mls/hr IV BID [facility]; Protocol Stop: 11/16/24 20:59 Piperacillin Sod/Tazobactam (Sod 3.375 gm/ Dextrose) 50 mls @ 12.5 mls/hr IV Q12HR [facility]; Protocol Stop: 11/16/24 11:14 Last Admin: 11/09/24 13:15 Dose: 12.5 mls/hr Dextrose (D5w) 1,000 mls @ 75 mls/hr IV .[id number] ONE Stop: 11/09/24 22:19 Non-Formulary Medication (Sunitinib Malate) 25 mg PO DAILY [facility] Stop: 12/09/24 13:59 Last Admin: 11/09/24 14:03 Dose: Not Given Pantoprazole Sodium (Pantoprazole Inj 40 Mg Vial) 40 mg IVP QDAY [facility] Stop: 12/10/24 08:59 Vitamin B Complex/Vit C/Folic Acid (Vit B12/Vit C/Fa (Nephrovite) Tablet) 1 tab PO QDAY [facility] Stop: 12/09/24 08:59 Last Admin: 11/09/24 09:45 Dose: Not Given Discontinued Medications Acetaminophen (Acetaminophen 325 Mg Tablet) 650 mg PO Q6H PRN PRN Reason: Fever >101.5 Stop: 12/09/24 01:01 Cyanocobalamin (Cyanocobalamin Inj 1,000 Mcg/Ml Vial) 1,000 mcg IM X1 ONE Stop: 11/09/24 08:10 Last Admin: 11/09/24 09:42 Dose: 1,000 mcg Fentanyl Citrate (Fentanyl Cit Inj 50 Mcg/Ml Amp 2ml) 50 mcg IV Q2M PRN PRN Reason: MODERATE SEDATION Stop: 11/09/24 19:50 Piperacillin/Tazobactam/Dextrose (Zosyn) 3.375 gm in 50 mls @ 100 mls/hr IV X1 ONE Stop: 11/09/24 00:27 Last Infusion: 11/09/24 01:02 Dose: Infused Doxycycline Hyclate 100 mg/ (Sodium Chloride) 250 mls @ 125 mls/hr IV X1 ONE Stop: 11/09/24 02:00 Last Infusion: 11/09/24 03:42 Dose: Infused Sodium Chloride (Ns) 1,000 mls @ 999 mls/hr IV .Q1H1M ONE Stop: 11/09/24 01:02 Last Infusion: 11/09/24 01:43 Dose: Infused Sodium Chloride (Ns) 1,000 mls @ 999 mls/hr IV .Q1H1M ONE Stop: 11/09/24 01:02 Last Infusion: 11/09/24 01:43 Dose: Infused Dextrose/Sodium Chloride (D5-1/2ns) 1,000 mls @ 75 mls/hr IV .[id number] [facility] Stop: 12/09/24 01:14 Last Admin: 11/09/24 09:37 Dose: Not Given Cefepime HCl 1 gm/ Sodium (Chloride) 50 mls @ 100 mls/hr IV Q24H [facility] Stop: 11/16/24 01:14 Last Admin: 11/09/24 09:37 Dose: Not Given Azithromycin 500 mg/ Sodium (Chloride) 250 mls @ 250 mls/hr IV QDAY [facility] Stop: 11/16/24 01:08 Last Admin: 11/09/24 09:37 Dose: Not Given Dextrose/Sodium Chloride (D5-1/2ns) 1,000 mls @ 75 mls/hr IV .[id number] ONE Stop: 11/09/24 22:19 Cefepime HCl 1 gm/ Sodium (Chloride) 50 mls @ 100 mls/hr IV Q24H [facility] Stop: 11/16/24 08:59 Last Infusion: 11/09/24 11:03 Dose: Infused Azithromycin 500 mg/ Sodium (Chloride) 250 mls @ 250 mls/hr IV QDAY [facility] Stop: 11/16/24 09:14 Last Admin: 11/09/24 10:00 Dose: 250 mls/hr Dextrose (D5w) 1,000 mls @ 60 mls/hr IV .[id number] ONE Stop: 11/10/24 01:39 Last Infusion: 11/09/24 15:50 Dose: 75 mls/hr Albumin Human (Albuminar-25 Ivpb) 25 gm in 100 mls @ 100 mls/hr IV X1 ONE Stop: 11/09/24 09:41 Last Infusion: 11/09/24 11:03 Dose: Infused Dextrose (D5w) 250 mls @ 999 mls/hr IV .Q16M ONE Stop: 11/09/24 09:02 Last Infusion: 11/09/24 10:01 Dose: Infused Sodium Chloride (Ns 0.45%) 500 mls @ 999 mls/hr IV .Q31M ONE Stop: 11/09/24 10:15 Last Admin: 11/09/24 09:49 Dose: 999 mls/hr Piperacillin/Tazobactam/Dextrose (Zosyn) 3.375 gm in 50 mls @ 100 mls/hr IV Q8HR [facility] Stop: 11/16/24 15:59 Doxycycline Hyclate 100 mg/ (Sodium Chloride) 100 mls @ 100 mls/hr IV BID [facility] Stop: 11/16/24 20:59 Dextrose (D5w) 250 mls @ 999 mls/hr IV .Q16M ONE Stop: 11/09/24 15:55 Last Admin: 11/09/24 15:49 Dose: Not Given Midazolam HCl (Midazolam Inj 1 Mg/Ml Vial 2 Ml) 2 mg IV Q2M PRN PRN Reason: Moderate Sedation Stop: 11/09/24 19:50 Assessment & Plan Plan Patient is a 88-year-old tagalog-speaking female with past medical history of gastric cancer status post partial gastrectomy on sunitinib malate (following with [facility] oncology), failure to thrive, pancytopenia, chronic macrocytic anemia, paroxysmal A-fib (not on anticoagulation) and history of GI bleed who presented to [facility] emergency department with complaints of generalized weakness. Patient upgraded to ICU due to active GI bleed and closer monitoring. Neuro Currently stable Cardiac #History of A-fib Patient currently not on A-fib Patient does not take anticoagulation due to history of GI bleed Will continue to monitor rhythm while in telemetry #Elevated troponin?improved Likely demand ischemia in setting of GI bleed Peaked at 0.[address] changes on EKG Pulm #Acute hypoxic respiratory failure #Bilateral bibasilar pneumonia Chest x-ray showing bibasilar pneumonia Patient currently on nasal cannula Patient on Zosyn and doxycycline Pro-Alex elevated Pending blood cultures Renal #WILLIE VS WILLIE on CKD Baseline creatinine 1.June Current creatinine 1.6 with a GFR of 31 Renally dose medications Avoid nephrotoxic agents Patient received IV fluids. Continue monitoring creatinine #Hyperosmolar Hypernatremia Likely related to decreased p.o. 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 Dilan Vila MD PGY3.
[2024-11-09 20:40] LABS: Slide Review Platelets confirmed
[2024-11-09] MEDS: DEXTROSE 5%-WATER 1,000 ML 100 ML IV (21:48)
[2024-11-10] VITALS (51 sets, daily range): BP systolic 85–174; BP diastolic 50–105; PULSE 71–117; RESP 0–43; TEMP 36.2–36.9; O2SAT 21–99; BMI 20.6
[2024-11-10 06:22] LABS: Basophils % (Auto) 1 % (0-2.5); Eosinophils % (Auto) 0 % (0-10); Hematocrit 36.9 % (36.0-46.0); Hemoglobin 12.3 g/dL (12.0-16.0); Immature Granulocytes % (Auto) 1 % (0-0); Immature Granulocytes Auto 0.02 Thou/mm3 (0.00-0.00); Lymphocytes # (Auto) 0.6 Thou/mm3 (1.0-4.8); Lymphocytes % (Auto) 14 % (10-50); Mean Corpuscular HGB Conc 33.3 g/dl (31.0-37.0); Mean Corpuscular Hemoglobin 33.7 pg (25.0-35.0); Mean Corpuscular Volume 101 fL (80-100); Monocytes # (Auto) 0.2 Thou/mm3 (0.0-0.8); Monocytes % (Auto) 4 % (0-12); Neutrophils # (Auto) 3.5 Thou/mm3 (1.8-7.7); Neutrophils % (Auto) 81 % (37-80); Nucleated Red Blood Cell # 1.39 Thou/mm3 (0.00-0.00); Nucleated Red Blood Cell % 32 /100 WBC (0); Platelet Count 119 Thou/mm3 (140-440); RDW Standard Deviation 89.7 fL (36.4-46.3); Red Blood Count 3.65 Miln/mm3 (4.00-5.20); White Blood Count 4.3 Thou/mm3 (3.6-11.0)
[2024-11-10 06:41] LABS: Anion Gap 9 (7-16); BUN/Creatinine Ratio 27 Ratio (12-20); Blood Urea Nitrogen 38 mg/dL (9-23); Carbon Dioxide 28.4 mMol/L (20.0-31.0); Chloride 112 mMol/L (98-107); Creatinine (Component) 1.4 mg/dL (0.6-1.3); Estimated Creatinine Clearance 19.3 mL/min (>60); Glucose 62 mg/dL (74-106); Osmolality,Calculated 303 (275-295); Potassium 3.6 mMol/L (3.4-5.1); Sodium 149 mMol/L (136-145); eGFR 36 See Note
[2024-11-10] MEDS: DEXTROSE 50%-WATER INJ 50 ML SYRINGE IV (08:01)
[2024-11-10 08:19] LABS: Hematocrit 36.4 % (36.0-46.0); Hemoglobin 12.1 g/dL (12.0-16.0)
[2024-11-10] MEDS: DEXTROSE 5%-WATER 1,000 ML 75 ML IV (08:24)
--- NOTE | 2024-11-10 09:17 | PCS.ST ---
Swallow Evaluation completed. See report for details. Recommend Dysphagia 1/Regular liquids. Diet per medical team.
[2024-11-10] MEDS: FOLIC ACID INJ 1 MG/0.2 ML IVP (09:41)
[2024-11-10] MEDS: VIT B12/Vit C/FA (Nephrovite) TABLET 1 TAB PO (09:41)
[2024-11-10] MEDS: PANTOPRAZOLE INJ 40 MG VIAL IVP (09:42)
[2024-11-10] MEDS: WATER IV ×2 (09:42→22:44)
[2024-11-10] MEDS: TAZO IV ×2 (09:42→22:44)
[2024-11-10] MEDS: DEXTROSE 5% IV ×2 (09:42→22:44)
[2024-11-10] MEDS: PIPER IV ×2 (09:42→22:44)
--- NOTE | 2024-11-10 10:20 | PD.NEPHPROG ---
Documentation for date of: 11/10/24 Subjective Subjective Interval history: Informant daughter Ms. Harris is a 88-year-old [place]oc[place] female with past medical history of gastric cancer status post partial gastrectomy on sunitinib malate (following with [facility] oncology), failure to thrive-s/p feeding tube, pancytopenia, chronic macrocytic anemia, paroxysmal A-fib (not on anticoagulation) and history of GI bleed presented to the emergency department yesterday complaining of fever and weakness and low oxygen saturation. Patient noted to be hypotensive. IV fluids were given in the emergency department. In the ER blood pressure was 70/35, heart rate 119 max temp was 101. Labs showed hemoglobin 8.5, platelets 50, sodium 149, BUN 45, creatinine 2.5, glucose 69, elevated LFTs. Pro-Alex 6.99. Flu and COVID-negative. Chest x-ray showed pneumonia. EKG sinus tach. Patient was given 2 L of fluid bolus, antibiotics Zosyn and doxycycline were initiated and subsequently transferred to telemetry. Patient currently seen in ICU on telemetry status. Renal consultation requested for worsening renal function. Home medications included allopurinol, sunitinib. 11/10/2024 patient currently seen in ICU. Resting comfortably. Alert and awake. Had a GI bleed and was transferred to ICU yesterday. Currently she seems to be stable. Not on any pressors. Blood pressure 129/99, heart rate 81. Hemoglobin 12.1, platelets 119. Sodium 149, potassium 3.6, BUN 38, creatinine 1.4, glucose 62, calcium 8, magnesium 2. Spoke to ICU team-start patient on D5W p.o. for hypoglycemia and hypernatremia. Currently on antibiotics. Review of Systems Review of Systems Narrative Review of Systems: Limited due to her mental status, very hard of hearing. Patient denies any chest pain. Exam Vital Signs Temp Pulse Resp BP Pulse Ox O2 Del Method O2 Flow Rate 36.7 C 108 H 20 132/86 H 96 Nasal Cannula 1 11/10/24 07:00 11/10/24 10:00 11/10/24 10:00 11/10/24 10:11/10/24 10:00 11/09/24 23:00 11/10/24 06:54 Narrative Exam GENERAL APPEARANCE: Elderly lady currently seen in ICU Dry mucosa CARDIOVASCULAR: Heart regular, no murmurs LUNGS/CHEST: Chest clear to auscultation. No rales, rhonchi, wheezing ABDOMEN: Soft, nontender, nondistended. No masses. Normal bowel sounds. Patient has a feeding tube EXTREMITIES: No edema, clubbing or cyanosis. SKIN: Skin exam normal without any rashes MUSCULOSKELETAL: In bed NEUROLOGICAL : Awake, tired Objective Labs 11/10/24 07:57 11/10/24 06:12 Labs: Laboratory Results - last 24 hr 11/09/24 11/09/24 11/09/24 03:01 08:15 09:45 WBC RBC Hgb Hct MCV MCH MCHC RDW Std Deviation Plt Count Neut % (Auto) Lymph % (Auto) [place] % (Auto) Eos % (Auto) Baso % (Auto) Neut # (Auto) Lymph # (Auto) [place] # (Auto) Eos # (Auto) Baso # (Auto) Immature Gran # (Auto) Absolute Nucleated RBC Immature Gran % Nucleated RBC % Smear Path Review Sent to Pathologist Retic Count (auto) Absolute Retic Immature Retic Fraction Retic Hgb Content CHr Sodium Potassium Chloride Carbon Dioxide Anion Gap BUN Creatinine Estim Creat Clear Calc eGFR BUN/Creatinine Ratio Glucose Calculated Osmolality Lactic Acid 2.7 H Calcium Corrected Calcium Phosphorus Magnesium Iron TIBC Iron Saturation Unsat Iron Binding Albumin Misc Test Result Platelets confirmed Blood Type A Positive Antibody Screen NEGATIVE Crossmatch See Detail Blood Bank Wristband ID Yes Blood Bank Comment PLATP Ready 11/09/24 11/09/24 11/09/24 11:45 16:47 18:43 WBC 4.9 RBC 1.78 L* Hgb 6.7 L* Hct 21.6 L* MCV 121 H MCH 37.6 H MCHC 31.0 RDW Std Deviation 117.4 H Plt Count 43 L Neut % (Auto) 82 H Lymph % (Auto) 13 [place] % (Auto) 3 Eos % (Auto) 0 Baso % (Auto) 0 Neut # (Auto) 4.1 Lymph # (Auto) 0.7 L [place] # (Auto) 0.2 Eos # (Auto) 0.0 Baso # (Auto) 0.0 Immature Gran # (Auto) 0.03 H Absolute Nucleated RBC 1.47 H Immature Gran % 1 H Nucleated RBC % 30 H Smear Path Review Retic Count (auto) 7.8 H Absolute Retic 151.3 H Immature Retic Fraction 36.9 H Retic Hgb Content CHr 38.3 H Sodium 152 H 149 H Potassium 3.8 3.6 Chloride 114 H 113 H Carbon Dioxide 26.7 28.2 Anion Gap 11 8 BUN 49 H 43 H Creatinine 1.7 H 1.6 H Estim Creat Clear Calc 15.9 L 16.9 L eGFR 29 L 31 L BUN/Creatinine Ratio 29 H 27 H Glucose 61 L 76 Calculated Osmolality 312 H 305 H Lactic Acid 2.5 H 1.8 Calcium 7.7 L 7.7 L Corrected Calcium 9.3 9.3 Phosphorus 3.9 3.5 Magnesium Iron 44 L TIBC 155 L Iron Saturation 28 Unsat Iron Binding 111 L Albumin 2.0 L 2.0 L Misc Test Result Platelets confirmed Blood Type Antibody Screen Crossmatch Blood Bank Wristband ID Blood Bank Comment 11/10/24 11/10/24 06:12 07:57 WBC 4.3 RBC 3.65 L Hgb 12.3 D 12.1 Hct 36.9 D 36.4 MCV 101 H MCH 33.7 MCHC 33.3 RDW Std Deviation 89.7 H Plt Count 119 L D Neut % (Auto) 81 H Lymph % (Auto) 14 [place] % (Auto) 4 Eos % (Auto) 0 Baso % (Auto) 1 Neut # (Auto) 3.5 Lymph # (Auto) 0.6 L [place] # (Auto) 0.2 Eos # (Auto) 0.0 Baso # (Auto) 0.0 Immature Gran # (Auto) 0.02 H Absolute Nucleated RBC 1.39 H Immature Gran % 1 H Nucleated RBC % 32 H Smear Path Review Retic Count (auto) Absolute Retic Immature Retic Fraction Retic Hgb Content CHr Sodium 149 H Potassium 3.6 Chloride 112 H Carbon Dioxide 28.4 Anion Gap 9 BUN 38 H Creatinine 1.4 H Estim Creat Clear Calc 19.3 L eGFR 36 L BUN/Creatinine Ratio 27 H Glucose 62 L Calculated Osmolality 303 H Lactic Acid Calcium 8.0 L Corrected Calcium Phosphorus Magnesium 2.0 Iron TIBC Iron Saturation Unsat Iron Binding Albumin Misc Test Result Blood Type Antibody Screen [place] Blood Bank Wristband ID Blood Bank Comment Assessment & Plan Assessment and plan (1) Acute renal failure (ARF): Status: Acute (2) Hypernatremia: Status: Acute (3) Septic shock: Status: Acute (4) Atrial fibrillation with RVR: Status: Acute (5) Thrombocytopenia: Status: Acute (6) Acute GI bleeding: Status: Acute (7) Hypotension: Status: Acute Additional Assessment & Plan Additional Plan: (1) Acute renal failure (ARF): Status: Acute Assessment and plan: Acute renal failure secondary to prerenal azotemia. Creatinine trending down with IV fluids. Blood pressure low hemoglobin stable posttransfusion. Dr. Ledesma was consulted for possible GI bleed. Status post endoscopy continue with fluid resuscitation, packed red blood cells. (2) Hypernatremia: Status: Acute Assessment and plan: Continue with the D5W. Currently at 75 0 mL/h. Replace electrolytes. (3) Septic shock: Status: Acute Assessment and plan: Broad-spectrum antibiotics, fluids Shock seems to be resolved (4) Atrial fibrillation with RVR: Status: Acute Assessment and plan: Heart rate currently 88 (5) Thrombocytopenia: Status: Acute Assessment and plan: Platelets 112 (6) Acute GI bleeding: Status: Acute Assessment and plan: Dr. Ledesma was consulted (7) Hypotension: Status: Acute Assessment and plan: Continue with IV fluids-better Plan of care discussed with ICU team Quality - progress note Quality Measures Quality Measures: VTE prophylaxis Reason for Continued Stay Reason for Continued Stay: further monitoring
--- NOTE | 2024-11-10 11:33 | PC.DIETICIAN ---
Nutrition prescription If nutrition is indicated, consider: 1. Jevity 1.2 at 20 ml/hr via PEG tube by pump. Advance 10 ml every 8 hrs to goal rate of 45 ml/hr x 24 hrs. If no IV fluids, water flushes of 30 ml/hr (or per MD). 2. Dys Pureed (recreational feeds as tolerated).
--- NOTE | 2024-11-10 14:34 | ESPR_ITS ---
<Statement entered by Mitchell Rodarte MD - 11/11/24 08:10> TOTAL TIME: 45MINUTES ON DIRECT MEDICAL CARE, MANAGEMENT - COORDINATION AND COUNSELING > 50% OF TOTAL TIME I saw and evaluated the patient. I reviewed the resident?s note and agree with findings and plan as documented in the resident?s note. no further bleeding overnight h/h greater then expected post transfusions CXR with bilateral signficant effusions bl and pulm edema in setting of severe CHF she underwent bl thoracentesis previous admission - transudate DO NOT recommend repeat thoracentesis - it will just rapidly reaccumulate optimize CHF as much as possible appropriate to discuss goals of care with family, including hospice given age, CHF, malignancy stable to transfer out of ICU Documentation for date of: 11/10/24 Subjective Subjective Interval history: Stefani Harris 88-year-old tagalog-speaking F PMHx gastric cancer s/p partial gastrectomy on sunitinib malate (following with [facility] oncology), failure to thrive, pancytopenia, chronic macrocytic anemia, paroxysmal A-fib (no AC) and history of GI bleed who presented on 11/08/2024 for fever, weakness and low blood pressure. EGD done by Dr. Ledesma on 11/09 who noticed active GI bleed and recommended upgrading to ICU for closer monitoring. Vitals are currently stable. Status post 2 units PRBCs and surgery consulted. 11/10: Seen and examined at bedside in ICU. Noted to have dark bowel movement overniht but repeat H&H after 2 units pRBC showed significant improvement from 6.7 to 12.3. Also given 1 unit of platelets with improvement from 43 to 119. Family notified at bedside regarding EDG findings. Dr. Loo consulted and pending recommendations. Exam Vital Signs Temp Pulse Resp BP Pulse Ox O2 Del Method O2 Flow Rate 98.0 F 110 H 24 H 123/87 H 99 Nasal Cannula 1 11/10/24 12:00 11/10/24 12:11/10/24 12:11/10/24 12:11/10/24 12:11/09/24 23:00 11/10/24 06:54 Narrative Exam General: elderly and frail female, AOx3, no acute distress HEENT: NC/AT, mucous membranes moist, bilateral sclera anicteric Cardiovascular: regular rate and rhythm, S1/S2 present, no murmurs appreciated Pulmonary: clear to auscultation bilaterally, no rales/rhonchi/wheezes Abdominal: soft, non-tender, non-distended, no rebound/guarding, normal bowel sounds present Musculoskeletal: normal ROM, no peripheral edema Skin: warm and dry, intact, no rashes Objective Labs 11/10/24 07:57 11/10/24 06:12 Labs: Laboratory Results - last 24 hr 11/09/24 11/09/24 11/09/24 03:01 16:47 18:43 WBC 4.9 RBC 1.78 L* Hgb 6.7 L* Hct 21.6 L* MCV 121 H MCH 37.6 H MCHC 31.0 RDW Std Deviation 117.4 H Plt Count 43 L Neut % (Auto) 82 H Lymph % (Auto) 13 [place] % (Auto) 3 Eos % (Auto) 0 Baso % (Auto) 0 Neut # (Auto) 4.1 Lymph # (Auto) 0.7 L [place] # (Auto) 0.2 Eos # (Auto) 0.0 Baso # (Auto) 0.0 Immature Gran # (Auto) 0.03 H Absolute Nucleated RBC 1.47 H Immature Gran % 1 H Nucleated RBC % 30 H Sodium 149 H Potassium 3.6 Chloride 113 H Carbon Dioxide 28.2 Anion Gap 8 BUN 43 H Creatinine 1.6 H Estim Creat Clear Calc 16.9 L eGFR 31 L BUN/Creatinine Ratio 27 H Glucose 76 Calculated Osmolality 305 H Lactic Acid 2.5 H 1.8 Calcium 7.7 L Corrected Calcium 9.3 Phosphorus 3.5 Magnesium Albumin 2.0 L Misc Test Result Platelets confirmed Blood Type A Positive Antibody Screen NEGATIVE Crossmatch See Detail Blood Bank Wristband ID Yes Blood Bank Comment PLATP Ready 11/10/24 11/10/24 06:12 07:57 WBC 4.3 RBC 3.65 L Hgb 12.3 D 12.1 Hct 36.9 D 36.4 MCV 101 H MCH 33.7 MCHC 33.3 RDW Std Deviation 89.7 H Plt Count 119 L D Neut % (Auto) 81 H Lymph % (Auto) 14 [place] % (Auto) 4 Eos % (Auto) 0 Baso % (Auto) 1 Neut # (Auto) 3.5 Lymph # (Auto) 0.6 L [place] # (Auto) 0.2 Eos # (Auto) 0.0 Baso # (Auto) 0.0 Immature Gran # (Auto) 0.02 H Absolute Nucleated RBC 1.39 H Immature Gran % 1 H Nucleated RBC % 32 H Sodium 149 H Potassium 3.6 Chloride 112 H Carbon Dioxide 28.4 Anion Gap 9 BUN 38 H Creatinine 1.4 H Estim Creat Clear Calc 19.3 L eGFR 36 L BUN/Creatinine Ratio 27 H Glucose 62 L Calculated Osmolality 303 H Lactic Acid Calcium 8.0 L Corrected Calcium Phosphorus Magnesium 2.0 Albumin Misc Test Result Blood Type Antibody Screen Crossmatch Blood Bank Wristband ID Blood Bank Comment Quality Measures Quality Measures sepsis Current suspected stage: ruled out Possible source: pulmonary and genitourinary Blood cultures ordered: yes Antibiotic ordered: Yes Advance care planning discussed with:: patient and child Assessment & Plan Assessment Current Active Medications: Generic Name Dose Route Start Last Admin Trade Name Freq PRN Reason Stop Dose Admin Acetaminophen 650 mg 11/09/24 08:42 Acetaminophen 325 Mg Tablet PO 12/09/24 01:01 Q6H PRN Fever >100 Allopurinol 100 mg 11/09/24 14:00 11/09/24 14:04 Allopurinol 100 Mg Tablet PO 12/09/24 13:59 Not Given DAILY LAKESHA Folic Acid 1 mg 11/09/24 09:00 11/10/24 09:41 Folic Acid Inj 1 Mg/0.2 Ml IVP 12/09/24 08:59 1 mg QDAY LAKESHA Administration Doxycycline Hyclate 100 mg/ 100 mls @ 100 mls/hr 11/09/24 21:00 11/10/24 09:42 Dextrose IV 11/16/24 20:59 100 mls/hr BID LAKESHA Administration Protocol Piperacillin Sod/Tazobactam 50 mls @ 12.5 mls/hr 11/09/24 11:15 11/10/24 09:42 Sod 3.375 gm/ Dextrose IV 11/16/24 11:14 12.5 mls/hr Q12HR LAKESHA Administration Protocol Dextrose 1,000 mls @ 75 mls/hr 11/10/24 08:15 11/10/24 08:24 D5w IV 12/10/24 08:14 75 mls/hr .[id number] LAKESHA Administration Non-Formulary Medication 25 mg 11/09/24 14:00 11/10/24 09:42 Sunitinib Malate PO 12/09/24 13:59 Not Given DAILY LAKESHA Pantoprazole Sodium 40 mg 11/10/24 09:00 11/10/24 09:42 Pantoprazole Inj 40 Mg Vial IVP 12/10/24 08:59 40 mg QDAY LAKESHA Administration Vitamin B Complex/Vit C/Folic Acid 1 tab 11/09/24 09:00 11/10/24 09:41 Vit B12/Vit C/Fa (Nephrovite) Tablet PO 12/09/24 08:59 1 tab QDAY LAKESHA Administration Plan Stefani Harris 88-year-old tagalog-speaking F PMHx gastric cancer s/p partial gastrectomy on sunitinib malate (following with [facility] oncology), failure to thrive, pancytopenia, chronic macrocytic anemia, paroxysmal A-fib (no AC) and history of GI bleed who presented on 11/08/2024 for fever, weakness and low blood pressure. EGD done by Dr. Ledesma on 11/09 who noticed active GI bleed and recommended upgrading to ICU for closer monitoring. Vitals are currently stable. Status post 2 units PRBCs and surgery consulted. Neurological No acute/active disease Cardiovascular #History of A-fib Currently not in A-fib and does not take AC due to history of GI bleed ? Continue to monitor #Elevated troponin, improved Likely demand ischemia in setting of GI bleed Peaked at 0.[address] changes on EKG Pulmonary #Acute hypoxic respiratory failure secondary to CHF exacerbation vs bilateral bibasilar pneumonia CXR showed vascular congestion and BNP mildly elevated at 294. ? Recommend diuresis ? Follow-up blood cultures ? Continue antibiotics Renal #WILLIE vs WILLIE on CKD Baseline Cr 1.0 on 06/2024 -> current Cr 1.6 with GFR 31 Received IV fluids. ? Renally dose medications, avoid nephrotoxic agents #Hyperosmolar Hypernatremia Likely related to decreased p.o. intake Received D5W ? Continue monitoring sodium ? 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 GI following, appreciate recommendations ? Surgery consulted, appreciate recommendations ? 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 Continue to monitor Infectious disease #Community-acquired pneumonia ? See pulmonary above Hospital management: Disposition: Stable for downgrade to medical floors Fluids: None Drips: None Diet: Dietitian recommends pur?ed diet Lines: Peripheral IV DVT prophylaxis: SCDs GI prophylaxis: Pantoprazole IV CODE STATUS: full code ----- Plan discussed with attending physician Rodolfo Leal MD PGY-1 Internal Medicine
--- NOTE | 2024-11-10 14:57 | PC.SS ---
PROJECT TECHNICIAN conducted bedside contact with the patient conduct initial assessment and to discuss discharge planning.? At bedside with patient was daughter, Angie Harris .? Daughter provided information for assessment and discharge planning.? Patient resides at home with family.? Patient does not utilize DME to assist with ambulation.? Patient does not utilize home oxygen.? Patient requires some assistance with completion of ADL?s.? Patient in possession of G-Tube, but has been P.O. feeding.? Patient?s medical surrogate decision maker is daughter, Angie Harris.? Patient?s PCP is Gopal Dawson.? Patient utilizes [facility] for medication services.? Discharge plan is for the patient to return home.? Family requesting following forms of DME: rollating walker.? If home health recommended preferred agency is [facility].? Patient?s home address is [address] [place] [address].? Family will provide transportation on behalf of the patient.? No further intervention required at this time, clinical social work therapist will be available to address any further concerns.? Next of Kin: Angie Harris D/C Plan: Home
--- NOTE | 2024-11-10 15:32 | PD.RESPRO ---
Documentation for date of: 11/10/24 Subjective Subjective Interval history: Patient is a 88 years old female with past medical history of gastric cancer status post partial gastrectomy on sunitinib malate (following with [facility] oncology), failure to thrive on PEG tube, pancytopenia, chronic macrocytic anemia, paroxysmal A-fib (not on anticoagulation) and history of GI bleed who presented to [facility] emergency department on 11/08/2024 with a chief complaint of fever, weakness and low blood pressure. On presentation in ED BP 70/35, P 119, RR 16, temp 98.4, O2 sat 90 on room air. ED labs significant for RBC 2.27, hemoglobin 8.5, hematocrit 27.9, MCV 123, MCH 37.4, MCHC 30.5, platelet 50,000, sodium 149, chloride 111, BUN 45, creatinine 2.5. FOBT was positive and she was admitted for further evaluation, GI was consulted. She underwent EGD on 11/09/24 showing active bleeding in anastomotic site. Simultaneously repeat CBC showed Hgb 6.7, she was ordered 2 units of pRBCs and was transferred to ICU for further management. Today her hgb is improved at 12.1. She was downgraded to medical floor for continuation of care on 11/10/24. Exam Vital Signs Temp Pulse Resp BP Pulse Ox O2 Del Method O2 Flow Rate 98.0 F 110 H 24 H 123/87 H 99 Nasal Cannula 1 11/10/24 12:00 11/10/24 12:00 11/10/24 12:11/10/24 12:00 11/10/24 12:11/09/24 23:00 11/10/24 06:54 Narrative Exam Gen: Well-developed and well-nourished elderly female. HEENT: NCAT, PERRLA, EOMI, MMM, anicteric conjunctivae. CVS: normal S1 and S2. RRR. No M/R/G. Resp: CTA B/L. No rhonchi, rales, crackles or wheezing. Abd: soft, mildly tender around PEG tube insertion site, non-distended. BS+ in all 4 quadrants. MSK: Good ROM in BUE & BLE. No edema or rash. Neuro: CN II-XII grossly intact. Strength 5/5 in BUE & BLE. Alert and oriented x3. Objective Labs 11/11/24 05:11 11/11/24 05:11 Labs: Laboratory Results - last 24 hr 11/09/24 11/09/24 11/09/24 03:01 16:47 18:43 WBC 4.9 RBC 1.78 L* Hgb 6.7 L* Hct 21.6 L* MCV 121 H MCH 37.6 H MCHC 31.0 RDW Std Deviation 117.4 H Plt Count 43 L Neut % (Auto) 82 H Lymph % (Auto) 13 [place] % (Auto) 3 Eos % (Auto) 0 Baso % (Auto) 0 Neut # (Auto) 4.1 Lymph # (Auto) 0.7 L [place] # (Auto) 0.2 Eos # (Auto) 0.0 Baso # (Auto) 0.0 Immature Gran # (Auto) 0.03 H Absolute Nucleated RBC 1.47 H Immature Gran % 1 H Nucleated RBC % 30 H Sodium 149 H Potassium 3.6 Chloride 113 H Carbon Dioxide 28.2 Anion Gap 8 BUN 43 H Creatinine 1.6 H Estim Creat Clear Calc 16.9 L eGFR 31 L BUN/Creatinine Ratio 27 H Glucose 76 Calculated Osmolality 305 H Lactic Acid 2.5 H 1.8 Calcium 7.7 L Corrected Calcium 9.3 Phosphorus 3.5 Magnesium Albumin 2.0 L Misc Test Result Platelets confirmed Blood Type A Positive Antibody Screen NEGATIVE Crossmatch See Detail Blood Bank Wristband ID Yes Blood Bank Comment PLATP Ready 11/10/24 11/10/24 06:12 07:57 WBC 4.3 RBC 3.65 L Hgb 12.3 D 12.1 Hct 36.9 D 36.4 MCV 101 H MCH 33.7 MCHC 33.3 RDW Std Deviation 89.7 H Plt Count 119 L D Neut % (Auto) 81 H Lymph % (Auto) 14 [place] % (Auto) 4 Eos % (Auto) 0 Baso % (Auto) 1 Neut # (Auto) 3.5 Lymph # (Auto) 0.6 L [place] # (Auto) 0.2 Eos # (Auto) 0.0 Baso # (Auto) 0.0 Immature Gran # (Auto) 0.02 H Absolute Nucleated RBC 1.39 H Immature Gran % 1 H Nucleated RBC % 32 H Sodium 149 H Potassium 3.6 Chloride 112 H Carbon Dioxide 28.4 Anion Gap 9 BUN 38 H Creatinine 1.4 H Estim Creat Clear Calc 19.3 L eGFR 36 L BUN/Creatinine Ratio 27 H Glucose 62 L Calculated Osmolality 303 H Lactic Acid Calcium 8.0 L Corrected Calcium Phosphorus Magnesium 2.0 Albumin Misc Test Result Blood Type Antibody Screen Crossmatch Blood Bank Wristband ID Blood Bank Comment Quality Measures Quality Measures sepsis Current suspected stage: sepsis Possible source: pulmonary and genitourinary Blood cultures ordered: yes Antibiotic ordered: Yes Advance care planning discussed with:: patient and child Assessment & Plan Assessment Current Active Medications: Generic Name Dose Route Start Last Admin Trade Name Freq PRN Reason Stop Dose Admin Acetaminophen 650 mg 11/09/24 08:42 Acetaminophen 325 Mg Tablet PO 12/09/24 01:01 Q6H PRN Fever >100 Allopurinol 100 mg 11/09/24 14:00 11/09/24 14:04 Allopurinol 100 Mg Tablet PO 12/09/24 13:59 Not Given DAILY LAKESHA Folic Acid 1 mg 11/09/24 09:00 11/10/24 09:41 Folic Acid Inj 1 Mg/0.2 Ml IVP 12/09/24 08:59 1 mg QDAY LAKESHA Administration Doxycycline Hyclate 100 mg/ 100 mls @ 100 mls/hr 11/09/24 21:00 11/10/24 09:42 Dextrose IV 11/16/24 20:59 100 mls/hr BID LAKESHA Administration Protocol Piperacillin Sod/Tazobactam 50 mls @ 12.5 mls/hr 11/09/24 11:15 11/10/24 09:42 Sod 3.375 gm/ Dextrose IV 11/16/24 11:14 12.5 mls/hr Q12HR LAKESHA Administration Protocol Dextrose 1,000 mls @ 75 mls/hr 11/10/24 08:15 11/10/24 08:24 D5w IV 12/10/24 08:14 75 mls/hr .[id number] LAKESHA Administration Non-Formulary Medication 25 mg 11/09/24 14:00 11/10/24 09:42 Sunitinib Malate PO 12/09/24 13:59 Not Given DAILY LAKESHA Pantoprazole Sodium 40 mg 11/10/24 09:00 11/10/24 09:42 Pantoprazole Inj 40 Mg Vial IVP 12/10/24 08:59 40 mg QDAY LAKESHA Administration Vitamin B Complex/Vit C/Folic Acid 1 tab 02/17/25 09:00 11/10/24 09:41 Vit B12/Vit C/Fa (Nephrovite) Tablet PO 12/09/24 08:59 1 tab QDAY LAKESHA Administration Plan Patient is a 88 years old female with past medical history of gastric cancer status post partial gastrectomy on sunitinib malate (following with [facility] oncology), failure to thrive on PEG tube, pancytopenia, chronic macrocytic anemia, paroxysmal A-fib (not on anticoagulation) and history of GI bleed who presented to [facility] emergency department on 11/08/2024 with a chief complaint of fever, weakness and low blood pressure. On presentation in ED BP 70/35, P 119, RR 16, temp 98.4, O2 sat 90 on room air. ED labs significant for RBC 2.27, hemoglobin 8.5, hematocrit 27.9, MCV 123, MCH 37.4, MCHC 30.5, platelet 50,000, sodium 149, chloride 111, BUN 45, creatinine 2.5. FOBT was positive and she was admitted for further evaluation, GI was consulted. She underwent EGD on 11/09/24 showing active bleeding in anastomotic site. Simultaneously repeat CBC showed Hgb 6.7, she was ordered 2 units of pRBCs and was transferred to ICU for further management. Today her hgb is improved at 12.1. She was downgraded to medical floor for continuation of care on 11/10/24. #Active gastric bleeding. #Acute blood loss anemia, improved. FOBT positive. Pt has hx of GI Bleed Pt also had a dark bowel movemenet this morning. GI consulted. EGD showed active bleeding at anastomotic site. 2u pRBCs transfused. Plan: -General Surgery consulted. -NPO. -monitor Hgb. #Acute hypoxic respiratory failure. #Sepsis, secondary to #Bilateral bibasilar pneumonia. #Lactic acidosis, improving. Patient presented with fever, shortness of breath, low SpO2, hypotension. Fever of 101 noted at home, chest x-ray on presentation in ED shows bibasilar pneumonia, patient requiring supplemental oxygen to maintain SpO2 more than 92. On admission lactate 5.6, procal 6.99, high suspicion of bacterial pneumonia. Patient was significantly hypotensive on presentation, was given 2 L bolus in ED. Patient given Zosyn and doxycycline x 1 in ED, sepsis alert called. Plan: ? IV Zoysn and Doxy. ? Flu and RSV negative in ED. ? Follow MRSA nasal screen. ? Follow blood culture and urine culture. ? Supplemental oxygen as needed. #Acute on chronic kidney injury. #CKD stage IIIa. On presentation BUN 45, creatinine 2.0, GFR 24. Baseline BUN 36, creatinine 1.0 GFR 55 Patient was given 2 L NS bolus in ED, WILLIE likely prerenal in setting of sepsis Plan: -D5W 75 cc/hr. -Avoid nephrotoxic agents. -Renally dose medications. #Hyperosmolar Hypernatremia. Likely related to pt getting too much normal saline with sepsis bolus Plan: -D5W 75 cc/hr. -Sodium correction goal 8 to 10 mEq in 24 hours. -Renal panel q6h. #NSTEMI type II, likely related to demand ischemia, resolved. Troponin 0.404 -> 0.331. #Failure to thrive status post PEG tube placement. Patient has history of gastric cancer status post surgery, had failure to thrive postop, had PEG tube placed for nutrition supplementation. Per family patient has good p.o. intake, requesting discontinuation of PEG tube. Plan: -Referral to speech therapy. -NPO now. -Dietitian consult. -GI consult, appreciated recs. #Macrocytic anemia. #Thrombocytopenia. Patient's hemoglobin 8.5, MCV 123 on presentation, platelet count 50,000. Patient has chronic macrocytic anemia secondary to partial gastrectomy. Plan: -Trend with CBC. -Folate 1 mg qday. -B12 Injection. #Paroxysmal A-fib. Patient has history of paroxysmal A-fib, was discharged on metoprolol succinate 100 mg. Plan: -Pending med reconciliation, consider resuming metoprolol succinate 100 mg in a.m. -Keep potassium more than 4, magnesium more than 2. -Telemetry monitoring. -Holding A/C in setting of possible GI bleed. #Gastric cancer by history. Plan: Resumed home Sunitinib malate 25 mg. Health Maintenance: Disposition: downgraded to telemetry for continuation of care. DVT prophylaxis: SCDs. GI prophylaxis: Protonix. Diet: NPO. CODE STATUS: Full code. Plan of care discussed with attending Dr. Lockett. Joaquin Zambrano MD, PGY 2. Disclaimer: This note was dictated by speech recognition. Minor errors in casing runner may be present due to voice recognition software. Attending Provider Attestation/Addendum I have examined the patient, reviewed labs and imaging findings, discussed the case with the resident(s), and reviewed entered orders. I agree with the plan of care as outlined in this note. Dr. Cathryn MD
--- NOTE | 2024-11-10 17:57 | PC.NURSE ---
Pt arrived on the [facility] floor at 17:57
--- NOTE | 2024-11-10 18:07 | PC.NURSE ---
Called Angie from contact list. Left message to return call regarding transfer of patient to room 370. will await call back.
--- NOTE | 2024-11-10 21:52 | ESPR_ITS ---
Documentation for date of: 11/10/24 Subjective Subjective Interval history: Hemoglobin hematocrit 12.1 and 36.4 after blood transfusion Case was discussed with the technical information specialist Dr. Loo Exam Vital Signs Temp Pulse Resp BP Pulse Ox O2 Del Method O2 Flow Rate 97.2 F 79 14 119/74 96 Room Air 1 11/10/24 20:00 11/10/24 20:00 11/10/24 20:00 11/10/24 20:00 11/10/24 20:00 11/10/24 20:00 11/10/24 06:54 Objective Labs 11/10/24 07:57 11/10/24 06:12 Labs: Laboratory Results - last 24 hr 11/09/24 11/10/24 11/10/24 03:01 06:12 07:57 WBC 4.3 RBC 3.65 L Hgb 12.3 D 12.1 Hct 36.9 D 36.4 MCV 101 H MCH 33.7 MCHC 33.3 RDW Std Deviation 89.7 H Plt Count 119 L D Neut % (Auto) 81 H Lymph % (Auto) 14 [place] % (Auto) 4 Eos % (Auto) 0 Baso % (Auto) 1 Neut # (Auto) 3.5 Lymph # (Auto) 0.6 L [place] # (Auto) 0.2 Eos # (Auto) 0.0 Baso # (Auto) 0.0 Immature Gran # (Auto) 0.02 H Absolute Nucleated RBC 1.39 H Immature Gran % 1 H Nucleated RBC % 32 H Sodium 149 H Potassium 3.6 Chloride 112 H Carbon Dioxide 28.4 Anion Gap 9 BUN 38 H Creatinine 1.4 H Estim Creat Clear Calc 19.3 L eGFR 36 L BUN/Creatinine Ratio 27 H Glucose 62 L Calculated Osmolality 303 H Calcium 8.0 L Magnesium 2.0 Blood Type A Positive Antibody Screen NEGATIVE Crossmatch See Detail Blood Bank Wristband ID Yes Blood Bank Comment PLATP Ready Impressions Impression: # upper GI bleed hemoglobin 12.1 after blood transfusion Patient may need eventually surgical intervention whether locally here or at a tertiary center if she continues to bleed Assessment & Plan A&P Narrative # Melena # FOBT positive # Acute posthemorrhagic anemia Plan Fiberoptic esophagogastroduodenoscopy with possible biopsy possible therapeutic intervention under intravenous moderate sedation Informed consent obtained from the poultry process worker and the family and this has been scheduled for today At the moment family intends to keep the PEG tube and we will reevaluate the stomach endoscopically on the inside serial CBC IV Protonix Will follow the patient Other medical problems include # Paroxysmal atrial fibrillation rate controlled not on Eliquis at this time # Gastric adenocarcinoma requiring partial gastrectomy at [facility] patient does see oncology there # Failure to thrive Thank you very much for the opportunity to participate in the care of this patient Time Spent With Patient Time: Total time spent is greater than 50% in coordination of care (as documented) at patient's floor/unit and/or counseling patient:
[2024-11-11] VITALS (9 sets, daily range): BP systolic 106–148; BP diastolic 44–86; PULSE 61–99; RESP 14–95; TEMP 35.7–36.4; O2SAT 91–95; BMI 20.8
[2024-11-11] MEDS: DEXTROSE 5%-WATER 1,000 ML 75 ML IV (00:16)
[2024-11-11 05:27] LABS: Basophils % (Auto) 0 % (0-2.5); Eosinophils % (Auto) 1 % (0-10); Hematocrit 33.5 % (36.0-46.0); Hemoglobin 11.2 g/dL (12.0-16.0); Immature Granulocytes % (Auto) 0 % (0-0); Lymphocytes # (Auto) 0.5 Thou/mm3 (1.0-4.8); Lymphocytes % (Auto) 18 % (10-50); Mean Corpuscular HGB Conc 33.4 g/dl (31.0-37.0); Mean Corpuscular Hemoglobin 33.4 pg (25.0-35.0); Mean Corpuscular Volume 100 fL (80-100); Monocytes # (Auto) 0.1 Thou/mm3 (0.0-0.8); Monocytes % (Auto) 5 % (0-12); Neutrophils % (Auto) 75 % (37-80); Nucleated Red Blood Cell # 1.11 Thou/mm3 (0.00-0.00); Nucleated Red Blood Cell % 43 /100 WBC (0); RDW Standard Deviation 91.3 fL (36.4-46.3); Red Blood Count 3.35 Miln/mm3 (4.00-5.20)
[2024-11-11 05:35] LABS: Platelet Count 74 Thou/mm3 (140-440); White Blood Count 2.6 Thou/mm3 (3.6-11.0)
[2024-11-11 05:49] LABS: Anion Gap 7 (7-16); BUN/Creatinine Ratio 25 Ratio (12-20); Blood Urea Nitrogen 30 mg/dL (9-23); Calcium 7.7 mg/dL (8.3-10.6); Carbon Dioxide 26.4 mMol/L (20.0-31.0); Chloride 109 mMol/L (98-107); Creatinine (Component) 1.2 mg/dL (0.6-1.3); Estimated Creatinine Clearance 22.5 mL/min (>60); Glucose 100 mg/dL (74-106); Magnesium 1.8 mg/dL (1.6-2.6); Osmolality,Calculated 289 (275-295); Potassium 3.1 mMol/L (3.4-5.1); Sodium 142 mMol/L (136-145); eGFR 44 See Note
[2024-11-11 06:08] LABS: Slide Review Platelets confirmed
--- NOTE | 2024-11-11 07:23 | PD.NEPHPROG ---
Documentation for date of: 11/11/24 Subjective Subjective Interval history: Informant daughter Ms. Harris is a 88-year-old [place] female with past medical history of gastric cancer status post partial gastrectomy on sunitinib malate (following with [facility] oncology), failure to thrive-s/p feeding tube, pancytopenia, chronic macrocytic anemia, paroxysmal A-fib (not on anticoagulation) and history of GI bleed presented to the emergency department yesterday complaining of fever and weakness and low oxygen saturation. Patient noted to be hypotensive. IV fluids were given in the emergency department. In the ER blood pressure was 70/35, heart rate 119 max temp was 101. Labs showed hemoglobin 8.5, platelets 50, sodium 149, BUN 45, creatinine 2.5, glucose 69, elevated LFTs. Pro-Alex 6.99. Flu and COVID-negative. Chest x-ray showed pneumonia. EKG sinus tach. Patient was given 2 L of fluid bolus, antibiotics Zosyn and doxycycline were initiated and subsequently transferred to telemetry. Patient currently seen in ICU on telemetry status. Renal consultation requested for worsening renal function. Home medications included allopurinol, sunitinib. 11/10/2024 patient currently seen in ICU. Resting comfortably. Alert and awake. Had a GI bleed and was transferred to ICU yesterday. Currently she seems to be stable. Not on any pressors. Blood pressure 129/99, heart rate 81. Hemoglobin 12.1, platelets 119. Sodium 149, potassium 3.6, BUN 38, creatinine 1.4, glucose 62, calcium 8, magnesium 2. Spoke to ICU team-start patient on D5W p.o. for hypoglycemia and hypernatremia. Currently on antibiotics. 11/11/2024 patient currently seen in medical floor. Moved out of ICU. Resting comfortably. Alert and awake. Blood sugar 92. Blood pressure 130/60, heart rate 80. Urine output seems to be acceptable. Edema seems to be better. Still having some shortness of breath. WBC 2.6, hemoglobin 11.2, platelets 74. Sodium 142, potassium 3.1, BUN 30, creatinine 1.2, calcium 7.7, phosphorus 2.6, magnesium 1.8. Electrolytes are all replaced. Review of Systems Review of Systems Narrative Review of Systems: very hard of hearing. Patient denies any chest pain. Denies any nausea, vomiting. Has PEG tube. Shortness of breath and cough better. Exam Vital Signs Temp Pulse Resp BP Pulse Ox O2 Del Method O2 Flow Rate 36.1 C 79 21 H 136/85 H 95 Room Air 1 11/11/24 04:00 11/11/24 04:00 11/11/24 04:00 11/11/24 04:00 11/11/24 04:00 11/11/24 04:00 11/10/24 06:54 Narrative Exam GENERAL APPEARANCE: Elderly lady currently seen in medical floor Dry mucosa CARDIOVASCULAR: Heart regular, no murmurs LUNGS/CHEST: Chest clear to auscultation. No rales, rhonchi, wheezing ABDOMEN: Soft, nontender, nondistended. No masses. Normal bowel sounds. Patient has a feeding tube EXTREMITIES: No edema, clubbing or cyanosis. SKIN: Skin exam normal without any rashes MUSCULOSKELETAL: In bed NEUROLOGICAL : Awake, tired Objective Labs 11/11/24 05:11 11/11/24 05:11 Labs: Laboratory Results - last 24 hr 11/10/24 11/11/24 07:57 05:11 WBC 2.6 L RBC 3.35 L Hgb 12.1 11.2 L Hct 36.4 33.5 L MCV 100 MCH 33.4 MCHC 33.4 RDW Std Deviation 91.3 H Plt Count 74 L D Neut % (Auto) 75 Lymph % (Auto) 18 [place] % (Auto) 5 Eos % (Auto) 1 Baso % (Auto) 0 Neut # (Auto) 2.0 Lymph # (Auto) 0.5 L [place] # (Auto) 0.1 Eos # (Auto) 0.0 Baso # (Auto) 0.0 Immature Gran # (Auto) 0.00 Absolute Nucleated RBC 1.11 H Immature Gran % 0 Nucleated RBC % 43 H Sodium 142 Potassium 3.1 L D Chloride 109 H Carbon Dioxide 26.4 Anion Gap 7 BUN 30 H Creatinine 1.2 Estim Creat Clear Calc 22.5 L eGFR 44 L BUN/Creatinine Ratio 25 H Glucose 100 D Calculated Osmolality 289 Calcium 7.7 L Magnesium 1.8 Misc Test Result Platelets confirmed Assessment & Plan Assessment and plan (1) Acute renal failure (ARF): Status: Acute (2) Hypernatremia: Status: Acute (3) Septic shock: Status: Acute (4) Atrial fibrillation with RVR: Status: Acute (5) Thrombocytopenia: Status: Acute (6) Acute GI bleeding: Status: Acute (7) Hypotension: Status: Acute Additional Assessment & Plan Additional Plan: (1) Acute renal failure (ARF): Status: Acute Assessment and plan: Acute renal failure secondary to prerenal azotemia. Creatinine trending down with IV fluids. Blood pressure low hemoglobin stable posttransfusion. Dr. Ledesma was consulted for possible GI bleed. Status post endoscopy continue with fluid resuscitation, packed red blood cells. (2) Hypernatremia: Status: Acute Assessment and plan: Sodium markedly improved to 142. Replace electrolytes. (3) Septic shock: Status: Acute Assessment and plan: Broad-spectrum antibiotics, fluids Shock seems to be resolved (4) Atrial fibrillation with RVR: Status: Acute Assessment and plan: Heart rate currently 80 (5) Thrombocytopenia: Status: Acute Assessment and plan: Platelets 112--74 (6) Acute GI bleeding: Status: Acute Assessment and plan: Dr. Ledesma on the case (7) Hypotension: Status: Acute Assessment and plan: Blood pressure better. Quality - progress note Quality Measures Quality Measures: VTE prophylaxis Reason for Continued Stay Reason for Continued Stay: further monitoring
[2024-11-11 08:16] LABS: Phosphorous 2.6 mg/dL (2.4-5.1)
[2024-11-11] MEDS: Magnesium Sulfate 2 GM Ivpb 2 GM/50 ML BAG IV (09:26)
[2024-11-11] MEDS: PANTOPRAZOLE INJ 40 MG VIAL IVP (09:26)
[2024-11-11] MEDS: WATER IV (09:29)
[2024-11-11] MEDS: PIPER IV (09:29)
[2024-11-11] MEDS: TAZO IV (09:29)
[2024-11-11] MEDS: DEXTROSE 5% IV (09:29)
--- NOTE | 2024-11-11 10:00 | ESPR_ITS ---
Documentation for date of: 11/11/24 Subjective Subjective Interval history: Hemoglobin hematocrit 11.2 and 33.5 Family is thinking of making the patient comfort care Still waiting for official surgical opinion Exam Vital Signs Temp Pulse Resp BP Pulse Ox O2 Del Method O2 Flow Rate 97.0 F 81 14 136/85 H 95 Room Air 1 11/11/24 04:00 11/11/24 09:21 11/11/24 09:21 11/11/24 04:00 11/11/24 04:00 11/11/24 04:00 11/10/24 06:54 Objective Labs 11/11/24 05:11 11/11/24 05:11 Labs: Laboratory Results - last 24 hr 11/11/24 05:11 WBC 2.6 L RBC 3.35 L Hgb 11.2 L Hct 33.5 L MCV 100 MCH 33.4 MCHC 33.4 RDW Std Deviation 91.3 H Plt Count 74 L D Neut % (Auto) 75 Lymph % (Auto) 18 [place] % (Auto) 5 Eos % (Auto) 1 Baso % (Auto) 0 Neut # (Auto) 2.0 Lymph # (Auto) 0.5 L [place] # (Auto) 0.1 Eos # (Auto) 0.0 Baso # (Auto) 0.0 Immature Gran # (Auto) 0.00 Absolute Nucleated RBC 1.11 H Immature Gran % 0 Nucleated RBC % 43 H Sodium 142 Potassium 3.1 L D Chloride 109 H Carbon Dioxide 26.4 Anion Gap 7 BUN 30 H Creatinine 1.2 Estim Creat Clear Calc 22.5 L eGFR 44 L BUN/Creatinine Ratio 25 H Glucose 100 D Calculated Osmolality 289 Calcium 7.7 L Phosphorus 2.6 Magnesium 1.8 Misc Test Result Platelets confirmed Impressions Impression: # Gastric ulcer # Upper GI bleed secondary to above continue conservative management Assessment & Plan A&P Narrative # Melena # FOBT positive # Acute posthemorrhagic anemia Plan Fiberoptic esophagogastroduodenoscopy with possible biopsy possible therapeutic intervention under intravenous moderate sedation Informed consent obtained from the biomechanical engineer and the family and this has been scheduled for today At the moment family intends to keep the PEG tube and we will reevaluate the stomach endoscopically on the inside serial CBC IV Protonix Will follow the patient Other medical problems include # Paroxysmal atrial fibrillation rate controlled not on Eliquis at this time # Gastric adenocarcinoma requiring partial gastrectomy at [facility] patient does see oncology there # Failure to thrive Thank you very much for the opportunity to participate in the care of this patient Time Spent With Patient Time: Total time spent is greater than 50% in coordination of care (as documented) at patient's floor/unit and/or counseling patient:
[2024-11-11] MEDS: POT PHOS 15 mMol in NS 250 ML 15 MMOL/250 ML BAG 62.5 MMOL IV (10:16)
[2024-11-11] MEDS: SUNITINIB PO (10:31)
--- NOTE | 2024-11-11 11:25 | PC.SS ---
Patient's family is requesting a rollator walker on behalf of the patient. Walkers The diagnosis creates mobility limitation that significantly impairs ability to participate in the patients activities of daily living either in their entirety, or in a reasonable time frame. Also the patient is able to safely use the walker and the patient?s mobility is sufficiently resolved with the use of the walker and cane has been ruled out.
[2024-11-11] MEDS: POTASSIUM CHL 10 mEq IVPB 10 MEQ/100 ML BAG 100 MEQ IV ×4 (11:30→14:51)
--- NOTE | 2024-11-11 13:39 | PC.SS ---
SS follow up: DME inquiry was sent via [employer].
--- NOTE | 2024-11-11 14:23 | ESPR_ITS ---
<Statement entered by Joaquin Zambrano MD - 11/11/24 18:19> Senior Resident Attestation: I supervised/discussed management plan with epidemiology intern physician Dr. Flanagan, and was involved in the care of this patient. I personally saw and examined the patient and discussed the assessment and plan with the entire medicine team, including my attending. I agree with the assessment and plan as documented. Patient's care was discussed with attending physician, Dr. Lockett. Joaquin Zambrano MD PGY-2. Documentation for date of: 11/11/24 Subjective Subjective Interval history: Patient examined at bedside today. No acute overnight events. Family reiterates that they do not want any invasive procedures, however they still want to continue with full code. They say that they do not want to do any procedures and want to see her improve. They are open to seeing hospice at this time. Exam Vital Signs Temp Pulse Resp BP Pulse Ox O2 Del Method O2 Flow Rate 97.6 F 80 18 130/60 93 L Room Air 1 11/11/24 12:00 11/11/24 12:11/11/24 12:11/11/24 12:11/11/24 12:11/11/24 12:11/10/24 06:54 Narrative Exam General: AAOx3, cachexia, temporal muscle wasting bilat, NAD, clavicles present with little to no muscle surrounding, weak and frail elderly woman HEENT: Dry mucous membranes, conjunctiva clear, EOMI, PERRLA, Cardiovascular: S1, S2, radial pulses +2 bilat, regular rhythm and rate Pulmonary: CTAB bilat no cough, no wheezing GI: No tenderness to light or deep palpitation, no guarding, rigidity, rebound tenderness or distension, PEG present Extremities: No presence of trace or pitting edema in lower extremities bilaterally, dorsalis pedis pulses +2 bilaterally, little muscle definition in LE Neuro: AAOx3, no focal motor or sensory deficits in the UE or LE bilat Psych: Able to somewhat cooperate Objective Labs 11/12/24 04:38 11/12/24 04:38 Labs: Laboratory Results - last 24 hr 11/11/24 05:11 WBC 2.6 L RBC 3.35 L Hgb 11.2 L Hct 33.5 L MCV 100 MCH 33.4 MCHC 33.4 RDW Std Deviation 91.3 H Plt Count 74 L D Neut % (Auto) 75 Lymph % (Auto) 18 [place] % (Auto) 5 Eos % (Auto) 1 Baso % (Auto) 0 Neut # (Auto) 2.0 Lymph # (Auto) 0.5 L [place] # (Auto) 0.1 Eos # (Auto) 0.0 Baso # (Auto) 0.0 Immature Gran # (Auto) 0.00 Absolute Nucleated RBC 1.11 H Immature Gran % 0 Nucleated RBC % 43 H Sodium 142 Potassium 3.1 L D Chloride 109 H Carbon Dioxide 26.4 Anion Gap 7 BUN 30 H Creatinine 1.2 Estim Creat Clear Calc 22.5 L eGFR 44 L BUN/Creatinine Ratio 25 H Glucose 100 D Calculated Osmolality 289 Calcium 7.7 L Phosphorus 2.6 Magnesium 1.8 Misc Test Result Platelets confirmed Quality Measures Quality Measures sepsis Current suspected stage: ruled out Possible source: pulmonary and genitourinary Blood cultures ordered: yes Antibiotic ordered: No Advance care planning discussed with:: patient Assessment & Plan Assessment Current Active Medications: Generic Name Dose Route Start Last Admin Trade Name Freq PRN Reason Stop Dose Admin Acetaminophen 650 mg 11/09/24 08:42 Acetaminophen 325 Mg Tablet PO 12/09/24 01:01 Q6H PRN Fever >100 Allopurinol 100 mg 11/09/24 14:00 11/09/24 14:04 Allopurinol 100 Mg Tablet PO 12/09/24 13:59 Not Given DAILY LAKESHA Sunitinib Malate 25 0 ea 11/11/24 09:30 11/11/24 10:31 Mg Capsules PO 12/11/24 09:29 1 capsule DAILY LAKESHA Administration Folic Acid 1 mg 11/09/24 09:00 11/11/24 12:40 Folic Acid Inj 1 Mg/0.2 Ml IVP 12/09/24 08:59 Not Given QDAY LAKESHA Dextrose 1,000 mls @ 75 mls/hr 11/10/24 08:15 11/11/24 00:16 D5w IV 12/10/24 08:14 75 mls/hr .[id number] LAKESHA Administration Potassium Chloride 10 meq in 100 mls @ 100 mls/hr 11/11/24 12:00 11/11/24 13:34 Kcl Ivpb IV 11/11/24 15:59 100 mls/hr Q1H LAKESHA Administration Pantoprazole Sodium 40 mg 11/10/24 09:00 11/11/24 09:26 Pantoprazole Inj 40 Mg Vial IVP 12/10/24 08:59 40 mg QDAY LAKESHA Administration Vitamin B Complex/Vit C/Folic Acid 1 tab 11/09/24 09:00 11/11/24 09:30 Vit B12/Vit C/Fa (Nephrovite) Tablet PO 12/09/24 08:59 Not Given QDAY LAKESHA Plan Patient is a 88 years old female with past medical history of gastric cancer status post partial gastrectomy on sunitinib malate (following with [facility] oncology), failure to thrive on PEG tube, pancytopenia, chronic macrocytic anemia, paroxysmal A-fib (not on anticoagulation) and history of GI bleed who presented to [facility] emergency department on 11/08/2024 with a chief complaint of fever, weakness and low blood pressure. On presentation in ED BP 70/35, P 119, RR 16, temp 98.4, O2 sat 90 on room air. ED labs significant for RBC 2.27, hemoglobin 8.5, hematocrit 27.9, MCV 123, MCH 37.4, MCHC 30.5, platelet 50,000, sodium 149, chloride 111, BUN 45, creatinine 2.5. FOBT was positive and she was admitted for further evaluation, GI was consulted. She underwent EGD on 11/09/24 showing active bleeding in anastomotic site. Simultaneously repeat CBC showed Hgb 6.7, she was ordered 2 units of pRBCs and was transferred to ICU for further management. Today her hgb is improved at 12.1. She was downgraded to medical floor for continuation of care on 11/10/24. #Active gastric bleeding. #Acute blood loss anemia, improved. #Symptomatic anemia FOBT positive. Pt has hx of GI Bleed Pt also had a dark bowel movemenet this morning GI consulted. EGD showed active bleeding at anastomotic site. 2u pRBCs transfused Family states that they do not want surgery for the patient at this time If bleed is likely related to anastomosis, there is high risk for patient to rebleed Plan: -General Surgery consulted, appreicate recs -NPO. -monitor Hgb with CBC ?Referral to hospice #Acute hypoxic respiratory failure, improved #Sepsis, secondary to, improved #Bilateral bibasilar pneumonia. #Lactic acidosis, improving. Patient presented with fever, shortness of breath, low SpO2, hypotension. Fever of 101 noted at home, chest x-ray on presentation in ED shows bibasilar pneumonia, patient requiring supplemental oxygen to maintain SpO2 more than 92. On admission lactate 5.6, procal 6.99, high suspicion of bacterial pneumonia. Patient was significantly hypotensive on presentation, was given 2 L bolus in ED. Patient given Zosyn and doxycycline x 1 in ED, sepsis alert called. MRSA negative Blood cultures no growth after 2 days RSV negative in ED Urine culture unremarkable Plan: ? DC antibiotics ? Supplemental oxygen as needed. #Acute on chronic kidney injury. #CKD stage IIIa. On presentation BUN 45, creatinine 2.0, GFR 24. Baseline BUN 36, creatinine 1.0 GFR 55 Patient was given 2 L NS bolus in ED, WILLIE likely prerenal in setting of sepsis Creatinine 1.2 today Plan: -DC fluids -Avoid nephrotoxic agents. -Renally dose medications. #Hyperosmolar Hypernatremia, resolved Likely related to pt getting too much normal saline with sepsis bolus Plan: ?DC fluids #NSTEMI type II, likely related to demand ischemia, resolved. Troponin 0.404 -> 0.331. #Failure to thrive status post PEG tube placement. Patient has history of gastric cancer status post surgery, had failure to thrive postop, had PEG tube placed for nutrition supplementation. Per family patient has good p.o. intake, requesting discontinuation of PEG tube RD recommends to resume tube feeds with Jevity and also recreational feeds of pur?ed diet Speech therapy recommends pur?ed diet with liquids Plan: -Referral to speech therapy. -NPO now. -Dietitian consult. -GI consult, appreciated recs. ?Hospice referral ?Resuming tube feeds with RD recommendations, Jevity 1.2 #Macrocytic anemia. #Thrombocytopenia. Patient's hemoglobin 8.5, MCV 123 on presentation, platelet count 50,000. Patient has chronic macrocytic anemia secondary to partial gastrectomy. Plan: -Trend with CBC. -Folate 1 mg qday. -B12 Injection. #Paroxysmal A-fib. Patient has history of paroxysmal A-fib, was discharged on metoprolol succinate 100 mg. Plan: -Pending med reconciliation, consider resuming metoprolol succinate 100 mg in a.m. -Keep potassium more than 4, magnesium more than 2. -Telemetry monitoring. -Holding A/C in setting of possible GI bleed. #Gastric cancer by history. Plan: Resumed home Sunitinib malate 25 mg. #Health Maintenance Disposition: downgraded to telemetry for continuation of care. DVT prophylaxis: SCDs. GI prophylaxis: Protonix Diet: NPO. CODE STATUS: Full code Patient seen and care discussed with my senior resident, Dr. Zambrano, and my attending physician, Dr. Cathryn Flanagan, PGY-1 Attending Provider Attestation/Addendum I have examined the patient, reviewed labs and imaging findings, discussed the case with the resident(s), and reviewed entered orders. I agree with the plan of care as outlined in this note, with these additional summaries/recommendations: Patient and daughter seen at bedside. No acute overnight events. Patient is status post EGD on 11/09/2024 which revealed esophagitis, gastroenterostomy with ulceration with active bleeding. Gastroenterology recommended immediate surgical consult although family has declined any surgical intervention. They are aware this could lead to permanent disability and . Patient's hemoglobin continues to slowly downtrend after receiving 2 units PRBCs. Hemoglobin down to 11.2 from 12.1 yesterday and patient is not safe for discharge at this time. Continue to trend H & H. Leukopenia now present likely secondary to high cell turnover. We will resume tube feeds for now given no plans for surgical intervention. Dietary consulted. Mild hypokalemia present and replacement given. WILLIE resolved. We will refer patient to hospice services so that family can learn more about hospice care as it seems more than appropriate at this time. Repeat hematology and chemistry panel in AM. Dr. Cathryn MD
--- NOTE | 2024-11-11 14:31 | PC.SS ---
Addendum entered by PAULO Noyola 11/11/24 16:23: SS Update: received a call from [facility] Rep. Ananth. She informed she has been unable to reach the patient's daughter Angie via phone and voicemail. Grace informed she would touch basis tomorrow if patient's family at bed side to discuss services in person. Addendum entered by PAULO Noyola 11/11/24 14:56: [employer] delivered walker at bed side. Bed side nurse aware. Patient sticker placed on DME. Original Note: Rounding note: patient's family requesting to speak to Hospice bilingual call center representative. Contacted patient's daughter Angie Harris and informs she is unable to be present for a hospice rep meeting. Angie is agreeable to speak to bilingual call center representative from [facility] hospice via phone. Contacted Grace with [facility] hospice and provided her with Angie's contact info to reach out if family wants to pursue with hospice services.
[2024-11-12] VITALS (10 sets, daily range): BP systolic 112–147; BP diastolic 66–87; PULSE 81–120; RESP 12–94; TEMP 35.9–37; O2SAT 91–97
[2024-11-12 05:26] LABS: Basophils % (Auto) 1 % (0-2.5); Eosinophils % (Auto) 1 % (0-10); Immature Granulocytes % (Auto) 1 % (0-0); Immature Granulocytes Auto 0.01 Thou/mm3 (0.00-0.00); Lymphocytes # (Auto) 0.5 Thou/mm3 (1.0-4.8); Lymphocytes % (Auto) 23 % (10-50); Mean Corpuscular HGB Conc 34.4 g/dl (31.0-37.0); Mean Corpuscular Hemoglobin 34.1 pg (25.0-35.0); Mean Corpuscular Volume 99 fL (80-100); Monocytes # (Auto) 0.1 Thou/mm3 (0.0-0.8); Monocytes % (Auto) 6 % (0-12); Neutrophils # (Auto) 1.5 Thou/mm3 (1.8-7.7); Neutrophils % (Auto) 70 % (37-80); Nucleated Red Blood Cell # 1.08 Thou/mm3 (0.00-0.00); Nucleated Red Blood Cell % 51 /100 WBC (0); RDW Standard Deviation 88.3 fL (36.4-46.3); Red Blood Count 3.23 Miln/mm3 (4.00-5.20)
[2024-11-12 05:37] LABS: INR 1.4 (0.9-1.3); Partial Thromboplastin Time 44.4 Seconds (22.0-36.0); Prothrombin Time 14.6 Seconds (9.0-12.2)
[2024-11-12 05:39] LABS: Platelet Count 69 Thou/mm3 (140-440)
[2024-11-12 05:40] LABS: Slide Review Platelets confirmed; White Blood Count 2.1 Thou/mm3 (3.6-11.0)
[2024-11-12 06:46] LABS: Albumin, Serum 1.7 gm/dL (3.4-4.8); Anion Gap 8 (7-16); BUN/Creatinine Ratio 25 Ratio (12-20); Blood Urea Nitrogen 30 mg/dL (9-23); Calcium 7.7 mg/dL (8.3-10.6); Calcium (Corrected) 9.5 mg/dL (8.5-10.1); Carbon Dioxide 25.4 mMol/L (20.0-31.0); Chloride 106 mMol/L (98-107); Creatinine (Component) 1.2 mg/dL (0.6-1.3); Estimated Creatinine Clearance 22.5 mL/min (>60); Glucose 95 mg/dL (74-106); Magnesium 2.1 mg/dL (1.6-2.6); Osmolality,Calculated 283 (275-295); Phosphorous 2.8 mg/dL (2.4-5.1); Potassium 3.9 mMol/L (3.4-5.1); Sodium 139 mMol/L (136-145); eGFR 44 See Note
[2024-11-12] MEDS: VIT B12/Vit C/FA (Nephrovite) TABLET 1 TAB PO (09:13)
[2024-11-12] MEDS: SUNITINIB PO (09:14)
[2024-11-12] MEDS: LANSOPRAZOLE 30 MG TAB.RAP.DR GT (09:17)
[2024-11-12] MEDS: FOLIC ACID 1 MG TABLET GT (09:17)
--- NOTE | 2024-11-12 09:57 | PC.SS ---
Follow up note: SS left Grace a message with [facility] following up to see if she already spoke to and met with daughter regarding services. Patient ready for d/c if family agreeable.
--- NOTE | 2024-11-12 13:37 | ESPR_ITS ---
Documentation for date of: 11/12/24 Subjective Subjective Interval history: Informant daughter Ms. 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 Patient noted to be hypotensive. IV fluids were given in the emergency department. In the ER blood pressure was 70/35, heart rate 119 max temp was 101. Labs showed hemoglobin 8.5, platelets 50, sodium 149, BUN 45, creatinine 2.5, glucose 69, elevated LFTs. Pro-Alex 6.99. Flu and COVID-negative. Chest x-ray showed pneumonia. EKG sinus tach. Patient was given 2 L of fluid bolus, antibiotics Zosyn and doxycycline were initiated and subsequently transferred to telemetry. Patient currently seen in ICU on telemetry status. Renal consultation requested for worsening renal function. Home medications included allopurinol, sunitinib. 11/10/2024 patient currently seen in ICU. Resting comfortably. Alert and awake. Had a GI bleed and was transferred to ICU yesterday. Currently she seems to be stable. Not on any pressors. Blood pressure 129/99, heart rate 81. Hemoglobin 12.1, platelets 119. Sodium 149, potassium 3.6, BUN 38, creatinine 1.4, glucose 62, calcium 8, magnesium 2. Spoke to ICU team-start patient on D5W p.o. for hypoglycemia and hypernatremia. Currently on antibiotics. 11/11/2024 patient currently seen in medical floor. Moved out of ICU. Resting comfortably. Alert and awake. Blood sugar 92. Blood pressure 130/60, heart rate 80. Urine output seems to be acceptable. Edema seems to be better. Still having some shortness of breath. WBC 2.6, hemoglobin 11.2, platelets 74. Sodium 142, potassium 3.1, BUN 30, creatinine 1.2, calcium 7.7, phosphorus 2.6, magnesium 1.8. Electrolytes are all replaced. 11/12/2024 patient currently seen in medical floor. Resting comfortably. Labs, medications have been reviewed. Replace electrolytes. Currently in reverse isolation. Review of Systems Review of Systems Narrative Review of Systems: very hard of hearing. Patient denies any chest pain. Denies any nausea, vomiting. Has PEG tube. Shortness of breath and cough better. Exam Vital Signs Temp Pulse Resp BP Pulse Ox O2 Del Method O2 Flow Rate 36.0 C 84 18 147/73 H 93 L Room Air 1 11/12/24 11:56 11/12/24 11:56 11/12/24 11:56 11/12/24 11:56 11/12/24 11:56 11/12/24 11:56 11/12/24 11:56 Narrative Exam GENERAL APPEARANCE: Elderly lady currently seen in medical floor CARDIOVASCULAR: Heart regular, no murmurs LUNGS/CHEST: Chest clear to auscultation. No rales, rhonchi, wheezing ABDOMEN: Soft, nontender, nondistended. No masses. Normal bowel sounds. Patient has a feeding tube EXTREMITIES: No edema, clubbing or cyanosis. SKIN: Skin exam normal without any rashes MUSCULOSKELETAL: In bed NEUROLOGICAL : Awake, tired Objective Labs 11/14/24 06:00 11/14/24 06:00 Labs: Laboratory Results - last 24 hr 11/12/24 04:38 WBC 2.1 L RBC 3.23 L Hgb 11.0 L Hct 32.0 L MCV 99 MCH 34.1 MCHC 34.4 RDW Std Deviation 88.3 H Plt Count 69 L Neut % (Auto) 70 Lymph % (Auto) 23 [place] % (Auto) 6 Eos % (Auto) 1 Baso % (Auto) 1 Neut # (Auto) 1.5 L Lymph # (Auto) 0.5 L [place] # (Auto) 0.1 Eos # (Auto) 0.0 Baso # (Auto) 0.0 Immature Gran # (Auto) 0.01 H Absolute Nucleated RBC 1.08 H Immature Gran % 1 H Nucleated RBC % 51 H PT 14.6 H INR 1.4 H APTT 44.4 H Sodium 139 Potassium 3.9 D Chloride 106 Carbon Dioxide 25.4 Anion Gap 8 BUN 30 H Creatinine 1.2 Estim Creat Clear Calc 22.5 L eGFR 44 L BUN/Creatinine Ratio 25 H Glucose 95 Calculated Osmolality 283 Calcium 7.7 L Corrected Calcium 9.5 Phosphorus 2.8 Magnesium 2.1 Albumin 1.7 L Misc Test Result Platelets confirmed Assessment & Plan Assessment and plan (1) Acute renal failure (ARF): Status: Acute (2) Hypernatremia: Status: Acute (3) Septic shock: Status: Acute (4) Atrial fibrillation with RVR: Status: Acute (5) Thrombocytopenia: Status: Acute (6) Acute GI bleeding: Status: Acute (7) Hypotension: Status: Acute Additional Assessment & Plan Additional Plan: (1) Acute renal failure (ARF): Status: Acute Assessment and plan: Acute renal failure secondary to prerenal azotemia. Creatinine trending down with IV fluids. Blood pressure low hemoglobin stable posttransfusion. Dr. Ledesma was consulted for possible GI bleed. Status post endoscopy continue with fluid resuscitation, packed red blood cells. Creatinine better (2) Hypernatremia: Status: Acute Assessment and plan: Sodium markedly improved to 139. Replace electrolytes. (3) Septic shock: Status: Acute Assessment and plan: Broad-spectrum antibiotics, fluids Shock seems to be resolved (4) Atrial fibrillation with RVR: Status: Acute Assessment and plan: Heart rate currently 80 (5) Thrombocytopenia: Status: Acute Assessment and plan: Platelets 112--74 (6) Acute GI bleeding: Status: Acute Assessment and plan: Dr. Ledesma on the case (7) Hypotension: Status: Acute Assessment and plan: Blood pressure better. Quality - progress note Quality Measures Quality Measures: VTE prophylaxis Reason for Continued Stay Reason for Continued Stay: further monitoring
--- NOTE | 2024-11-12 13:56 | PD.RESPRO ---
Documentation for date of: 11/12/24 Subjective Subjective Interval history: 11/11/2024: Patient examined at bedside today. No acute overnight events. Family reiterates that they do not want any invasive procedures, however they still want to continue with full code. They say that they do not want to do any procedures and want to see her improve. They are open to seeing hospice at this time. 11/12/2024: Patient examined at bedside today. No acute overnight events. interlibrary loan services librarian including hospice trying to contact family at this time however has not done so yet in regards to possible initiation of hospice. Patient reports she is doing okay and is continuing to have tube feeds and oral intake dysphagia pur?ed diet. H&H 11 and 32 respectively, white count 2.1, BUN/creatinine of 30 and 1.2. No other complaints at this time. Exam Vital Signs Temp Pulse Resp BP Pulse Ox O2 Del Method O2 Flow Rate 96.8 F 84 18 147/73 H 93 L Room Air 1 11/12/24 11:56 11/12/24 11:56 11/12/24 11:56 11/12/24 11:56 11/12/24 11:56 11/12/24 11:56 11/12/24 11:56 Narrative Exam General: AAOx3, cachexia, temporal muscle wasting bilat, NAD, clavicles present with little to no muscle surrounding, weak and frail elderly woman HEENT: Dry mucous membranes, conjunctiva clear, EOMI, PERRLA, Cardiovascular: S1, S2, radial pulses +2 bilat, regular rhythm and rate Pulmonary: CTAB bilat no cough, no wheezing GI: No tenderness to light or deep palpitation, no guarding, rigidity, rebound tenderness or distension, PEG present Extremities: No presence of trace or pitting edema in lower extremities bilaterally, dorsalis pedis pulses +2 bilaterally, little muscle definition in LE Neuro: AAOx3, no focal motor or sensory deficits in the UE or LE bilat Psych: Able to somewhat cooperate Objective Labs 11/13/24 04:23 11/13/24 04:23 Labs: Laboratory Results - last 24 hr 11/12/24 04:38 WBC 2.1 L RBC 3.23 L Hgb 11.0 L Hct 32.0 L MCV 99 MCH 34.1 MCHC 34.4 RDW Std Deviation 88.3 H Plt Count 69 L Neut % (Auto) 70 Lymph % (Auto) 23 [place] % (Auto) 6 Eos % (Auto) 1 Baso % (Auto) 1 Neut # (Auto) 1.5 L Lymph # (Auto) 0.5 L [place] # (Auto) 0.1 Eos # (Auto) 0.0 Baso # (Auto) 0.0 Immature Gran # (Auto) 0.01 H Absolute Nucleated RBC 1.08 H Immature Gran % 1 H Nucleated RBC % 51 H PT 14.6 H INR 1.4 H APTT 44.4 H Sodium 139 Potassium 3.9 D Chloride 106 Carbon Dioxide 25.4 Anion Gap 8 BUN 30 H Creatinine 1.2 Estim Creat Clear Calc 22.5 L eGFR 44 L BUN/Creatinine Ratio 25 H Glucose 95 Calculated Osmolality 283 Calcium 7.7 L Corrected Calcium 9.5 Phosphorus 2.8 Magnesium 2.1 Albumin 1.7 L Misc Test Result Platelets confirmed Quality Measures Quality Measures sepsis Current suspected stage: ruled out Possible source: pulmonary and genitourinary Blood cultures ordered: yes Antibiotic ordered: No Advance care planning discussed with:: patient and child Assessment & Plan Assessment Current Active Medications: Generic Name Dose Route Start Last Admin Trade Name Freq PRN Reason Stop Dose Admin Acetaminophen 650 mg 11/09/24 08:42 Acetaminophen 325 Mg Tablet PO 12/09/24 01:01 Q6H PRN Fever >100 Allopurinol 100 mg 11/09/24 14:00 11/09/24 14:04 Allopurinol 100 Mg Tablet PO 12/09/24 13:59 Not Given DAILY LAKESHA Sunitinib Malate 25 0 ea 11/11/24 09:30 11/12/24 09:14 Mg Capsules PO 12/11/24 09:29 1 capsule DAILY LAKESHA Administration Folic Acid 1 mg 11/12/24 09:15 11/12/24 09:17 Folic Acid 1 Mg Tablet GT 12/09/24 08:59 1 mg QDAY LAKESHA Administration Lansoprazole 30 mg 11/12/24 09:15 11/12/24 09:17 Lansoprazole 30 Mg Tab. GT 12/12/24 09:14 30 mg QDAY LAKESHA Administration Vitamin B Complex/Vit C/Folic Acid 1 tab 11/09/24 09:00 11/12/24 09:13 Vit B12/Vit C/Fa (Nephrovite) Tablet PO 12/09/24 08:59 1 tab QDAY LAKESHA Administration Plan Assessment Patient is a 88 years old female with past medical history of gastric cancer status post partial gastrectomy on sunitinib malate (following with [facility] oncology), failure to thrive on PEG tube, pancytopenia, chronic macrocytic anemia, paroxysmal A-fib (not on anticoagulation) and history of GI bleed who presented to [facility] emergency department on 11/08/2024 with a chief complaint of fever, weakness and low blood pressure. On presentation in ED BP 70/35, P 119, RR 16, temp 98.4, O2 sat 90 on room air. ED labs significant for RBC 2.27, hemoglobin 8.5, hematocrit 27.9, MCV 123, MCH 37.4, MCHC 30.5, platelet 50,000, sodium 149, chloride 111, BUN 45, creatinine 2.5. FOBT was positive and she was admitted for further evaluation, GI was consulted. She underwent EGD on 11/09/24 showing active bleeding in anastomotic site. Simultaneously repeat CBC showed Hgb 6.7, she was ordered 2 units of pRBCs and was transferred to ICU for further management. Today her hgb is improved at 12.1. She was downgraded to medical floor for continuation of care on 11/10/24. #Active gastric bleeding. #Acute blood loss anemia, improved. #Symptomatic anemia FOBT positive. Pt has hx of GI Bleed Pt also had a dark bowel movemenet this morning GI consulted. EGD showed active bleeding at anastomotic site. 2u pRBCs transfused Family states that they do not want surgery for the patient at this time If bleed is likely related to anastomosis, there is high risk for patient to rebleed Patient may pursue hospice with family at this time, however patient has not spoken with hospice yet PT recommends home health upon discharge Plan: -General Surgery consulted, appreicate recs -Tube feeds and dysphagia pur?ed diet -Continue to monitor hemoglobin with hematology ?Referral to hospice #Acute hypoxic respiratory failure, improved #Sepsis, secondary to, improved #Bilateral bibasilar pneumonia. #Lactic acidosis, improving. Patient presented with fever, shortness of breath, low SpO2, hypotension. Fever of 101 noted at home, chest x-ray on presentation in ED shows bibasilar pneumonia, patient requiring supplemental oxygen to maintain SpO2 more than 92. On admission lactate 5.6, procal 6.99, high suspicion of bacterial pneumonia. Patient was significantly hypotensive on presentation, was given 2 L bolus in ED. Patient given Zosyn and doxycycline x 1 in ED, sepsis alert called. MRSA negative Blood cultures no growth after 2 days RSV negative in ED Urine culture unremarkable Plan: ? Supplemental oxygen as needed, wean down as tolerated #Acute on chronic kidney injury. #CKD stage IIIa. On presentation BUN 45, creatinine 2.0, GFR 24. Baseline BUN 36, creatinine 1.0 GFR 55 Patient was given 2 L NS bolus in ED, WILLIE likely prerenal in setting of sepsis Creatinine 1.2 today Plan: -Avoid nephrotoxic agents. -Renally dose medications. #Hyperosmolar Hypernatremia, resolved Likely related to pt getting too much normal saline with sepsis bolus Plan: #NSTEMI type II, likely related to demand ischemia, resolved. Troponin 0.404 -> 0.331. #Failure to thrive status post PEG tube placement. Patient has history of gastric cancer status post surgery, had failure to thrive postop, had PEG tube placed for nutrition supplementation. Per family patient has good p.o. intake, requesting discontinuation of PEG tube RD recommends to resume tube feeds with Jevity and also recreational feeds of pur?ed diet Speech therapy recommends pur?ed diet with liquids Speech recommends to resume tube feeds and dysphagia pur?ed diet Plan: -Referral to speech therapy. ?On dysphagia pur?ed diet along with tube feeds -Dietitian consult. -GI consult, appreciated recs. ?Hospice referral ?Continue with Nephro-Isaac and folic acid 1 mg #Macrocytic anemia. #Thrombocytopenia. Patient's hemoglobin 8.5, MCV 123 on presentation, platelet count 50,000. Patient has chronic macrocytic anemia secondary to partial gastrectomy. Plan: -Trend with CBC. -Folate 1 mg qday. -B12 Injection. #Paroxysmal A-fib. Patient has history of paroxysmal A-fib, was discharged on metoprolol succinate 100 mg. Plan: -Pending med reconciliation, consider resuming metoprolol succinate 100 mg in a.m. -Keep potassium more than 4, magnesium more than 2. -Telemetry monitoring. -Holding A/C in setting of possible GI bleed ?SCDs #Gastric cancer by history Sees [facility] oncologist Plan: Continue with home Sunitinib malate 25 mg. #Health Maintenance Disposition: downgraded to telemetry for continuation of care. DVT prophylaxis: SCDs. GI prophylaxis: Protonix Diet: NPO. CODE STATUS: Full code Patient seen and care discussed with my senior resident, Dr. Dixon, and my attending physician, Dr. Cathryn Flanagan, PGY-1 Patient examined and case discussed with the team including attending physician. Note reviewed, I agree with the care plan as documented. Dispo: Family has declined surgical intervention for the gastric ulcer perforation at this time. Would like to take patient home, decline SNF. Home health referral placed for PT. Anticipate DC in 24 hours. - Steve Dixon MD, PGY 2 Attending Provider Attestation/Addendum I have examined the patient, reviewed labs and imaging findings, discussed the case with the resident(s), and reviewed entered orders. I agree with the plan of care as outlined in this note, with these additional summaries/recommendations: Patient and family seen at bedside. No acute overnight events. Today patient appears much more interactive and alert although she continues to look very anemic. Goals of care with family again today and they declined hospice again. Discussed with family that patient is at risk for a life-threatening bleed and perforation from ulcer at any time and they are aware of these risks. They have declined surgery on multiple occasions. I also discussed with family that patient is not safe for discharge given that her hemoglobin has decreased daily. Hemoglobin improved to 12.3 after blood transfusion and has downtrended to 12.1-11.2-and now he 11. Patient will remain hospitalized until hemoglobin up trends. Even then, patient is very high risk for discharge and and family understands that she is at risk for life threatening complication at any time. Continue tube feeds. Continue lansoprazole. Repeat hematology and chemistry panel in AM. All questions answered to satisfaction. Dr. Cathryn MD
--- NOTE | 2024-11-12 14:42 | PD.RESDS ---
Planned Discharge Date 11/12/24 DS: Providers Provider Date of admission: 11/09/24 01:02 Primary care physician: Gopal Dawson MD Admitting Provider: Taqueria Kong MD Attending Provider on Admission: Jerry Lockett MD Consults: 11/09/24 08:37 Consult to Gastroenterology Stat Comment: fobt positive Consulting Provider: Kimo Ledesma 11/09/24 08:40 Consult to Gastroenterology Routine Comment: FOBT + Consulting Provider: Kimo Ledesma 11/09/24 10:45 Consult to Nephrology Routine Comment: bhavana and hypernatremia Consulting Provider: Shayy Hyman 11/09/24 11:24 Referral Speech Therapy Routine Comment: 11/09/24 13:51 Referral Registered Dietitian Routine Comment: 11/09/24 20:12 Consult to General Surgery Urgent Comment: GI bleed Consulting Provider: Dawit Alejandra 11/11/24 06:48 Referral Wound Care Routine Comment: 11/11/24 13:52 Referral Hospice Routine Comment: Want to talk about options 11/12/24 09:10 Referral Physical Therapy Urgent Comment: Physician Instructions: Instructions: 4 d/c pls Attending Provider on DC: Jerry Lockett MD Discharging Provider: Jerry Lockett MD DS: Diagnosis Problem List Completed Was Problem List Reviewed/Reconciled?: Yes Hospital Course Hospital Course Hospital course: Ms. Harris is a 88-year-old tagalog-speaking female with past medical history of gastric cancer status post partial gastrectomy on sunitinib malate (following with [facility] oncology), failure to thrive, pancytopenia, chronic macrocytic anemia, paroxysmal A-fib (not on anticoagulation) and history of GI bleed who was admitted to [facility] emergency department on 11/08/2024 for acute blood loss anemia and symptomatic anemia likely 2/2 to anastomosis leak from gastric surgery that was done in 2008. Pt had presented w/a BP 70/35, P 119, RR 16, temp 98.4, O2 sat 90 on room air. ED labs were significant for RBC 2.27, hemoglobin 8.5, hematocrit 27.9, MCV 123, MCH 37.4, MCHC 30.5, platelet 50,000, sodium 149, chloride 111, BUN 45, creatinine 2.5, GFR 24, glucose 69, osmolality 305, lactate 5.6, AST 105, alk phos 127, albumin 2.0, globulin 4.6, Pro-Alex 6.99. Bedside flu and COVID-negative. Chest x-ray in the ED significant for bibasilar pneumonia. EKG shows sinus tachycardia QTc 450. Patient was given 2 L NS bolus, Zosyn x 1 and doxycycline x 1 in ED and then pt was admitted to floors. While on the floors patient had dark-colored bowel movements and FOBT was ordered which was positive. GI, Dr. Ledesma, was consulted for further evaluation of bleed. EGD was done which showed esophagitis and el blood though the anastomosis site was patent however there was so much blood that we could not fully assess ulceration. G-tube could not be visualized fully during EGD. It was recommended for patient to be transferred to ICU. Patient had also had hematology done which showed hemoglobin of 6.7, requiring transfusion in addition to thrombocytopenia which required transfusion as well. Patient was then downgraded to the floors as patient continued to improve. Hematology and other labs are continuously done for patient to monitor GI symptoms. Patient was then also resumed on feeds and was given fluids as well for improvement of acute on chronic kidney injury, likely prerenal. Hospice care and CODE STATUS was discussed with patient and patient's family who declined to change any status at this time, however hospice spoke with them. #Active gastric bleeding, improved #Acute blood loss anemia, improved. #Symptomatic anemia #Acute hypoxic respiratory failure, improved #Sepsis, secondary to, improved #Bilateral bibasilar pneumonia. #Lactic acidosis, improving. #Acute on chronic kidney injury. #CKD stage IIIa. #Hyperosmolar Hypernatremia, resolved #NSTEMI type II, likely related to demand ischemia, resolved. #Failure to thrive status post PEG tube placement. #Macrocytic anemia. #Thrombocytopenia. #Paroxysmal A-fib. #Gastric cancer by history. Patient seen and care discussed with my senior resident, Dr. Dixon, and my attending physician, Dr. Cathryn Flanagan, PGY-1 Time Spent with Patient Time attestation: Total time spent providing and/or coordinating discharge services: Time spent: Greater than 30 minutes Exam Vital Signs Temp Pulse Resp BP Pulse Ox O2 Del Method O2 Flow Rate 96.8 F 84 18 147/73 H 93 L Room Air 1 11/12/24 11:56 11/12/24 11:56 11/12/24 11:56 11/12/24 11:56 11/12/24 11:56 11/12/24 11:56 11/12/24 11:56 Narrative Exam General: AAOx3, cachexia, temporal muscle wasting bilat, NAD, clavicles present with little to no muscle surrounding, weak and frail elderly woman HEENT: Dry mucous membranes, conjunctiva clear, EOMI, PERRLA, Cardiovascular: S1, S2, radial pulses +2 bilat, regular rhythm and rate Pulmonary: CTAB bilat no cough, no wheezing GI: No tenderness to light or deep palpitation, no guarding, rigidity, rebound tenderness or distension, PEG present Extremities: No presence of trace or pitting edema in lower extremities bilaterally, dorsalis pedis pulses +2 bilaterally, little muscle definition in LE Neuro: AAOx3, no focal motor or sensory deficits in the UE or LE bilat Psych: Able to somewhat cooperate Discharge Plan Prescriptions/Referrals Prescriptions/Med Rec: No Action allopurinol [Zyloprim] 100 mg tablet 100 mg PO DAILY Patient Comments: TAKE 1 TABLET BY MOUTH ONCE DAILY FOR HIGH URIC ACID sunitinib malate 25 mg capsule 25 mg PO DAILY furosemide 20 mg tablet Patient Comments: TAKE 1 TABLET BY MOUTH EVERY DAY Referrals: Gopal Dawson MD [Primary Care Provider] - Patient/Caregiver Discharge Instructions Print Language: Nauruan Quality Discharge Quality Measures VTE prophylaxis (SCDs)
--- NOTE | 2024-11-12 15:41 | PC.SS ---
[employer] confirmed with patient's daughter, Angie; that family does not want to pursue hospice services. Plan is for home with [facility].
--- NOTE | 2024-11-12 19:35 | PD.IMPROG ---
Documentation for date of: 11/12/24 Subjective Subjective Interval history: Patient going home on hospice Hemoglobin hematocrit relatively stable Exam Vital Signs Temp Pulse Resp BP Pulse Ox O2 Del Method O2 Flow Rate 97.5 F 86 18 117/78 95 Room Air 1 11/12/24 16:00 11/12/24 16:00 11/12/24 16:00 11/12/24 16:00 11/12/24 16:00 11/12/24 16:00 11/12/24 11:56 Objective Labs 11/12/24 04:38 11/12/24 04:38 Labs: Laboratory Results - last 24 hr 11/12/24 04:38 WBC 2.1 L RBC 3.23 L Hgb 11.0 L Hct 32.0 L MCV 99 MCH 34.1 MCHC 34.4 RDW Std Deviation 88.3 H Plt Count 69 L Neut % (Auto) 70 Lymph % (Auto) 23 [place] % (Auto) 6 Eos % (Auto) 1 Baso % (Auto) 1 Neut # (Auto) 1.5 L Lymph # (Auto) 0.5 L [place] # (Auto) 0.1 Eos # (Auto) 0.0 Baso # (Auto) 0.0 Immature Gran # (Auto) 0.01 H Absolute Nucleated RBC 1.08 H Immature Gran % 1 H Nucleated RBC % 51 H PT 14.6 H INR 1.4 H APTT 44.4 H Sodium 139 Potassium 3.9 D Chloride 106 Carbon Dioxide 25.4 Anion Gap 8 BUN 30 H Creatinine 1.2 Estim Creat Clear Calc 22.5 L eGFR 44 L BUN/Creatinine Ratio 25 H Glucose 95 Calculated Osmolality 283 Calcium 7.7 L Corrected Calcium 9.5 Phosphorus 2.8 Magnesium 2.1 Albumin 1.7 L Misc Test Result Platelets confirmed Impressions Impression: Proximal body gastric ulcer anemia blood loss gastric carcinoma on chemotherapy Agree with hospice care Assessment & Plan A&P Narrative # Melena # FOBT positive # Acute posthemorrhagic anemia Plan Fiberoptic esophagogastroduodenoscopy with possible biopsy possible therapeutic intervention under intravenous moderate sedation Informed consent obtained from the diesel engine pipe fitter and the family and this has been scheduled for today At the moment family intends to keep the PEG tube and we will reevaluate the stomach endoscopically on the inside serial CBC IV Protonix Will follow the patient Other medical problems include # Paroxysmal atrial fibrillation rate controlled not on Eliquis at this time # Gastric adenocarcinoma requiring partial gastrectomy at [facility] patient does see oncology there # Failure to thrive Thank you very much for the opportunity to participate in the care of this patient Time Spent With Patient Time: Total time spent is greater than 50% in coordination of care (as documented) at patient's floor/unit and/or counseling patient:
--- NOTE | 2024-11-12 21:33 | PC.NURSE ---
Patient's indwelling urinary catheter removed at 1514, patient is due to void at 2114 , no urine output yet, informed Dr. Oglesby, order for bladder scan PRN.
--- NOTE | 2024-11-12 22:30 | PC.NURSE ---
bladder scan had 291 cc, informed Dr. Goodman, per MD to continue voiding trial, see in an hour if patient urinates and repeat bladder scan.
[2024-11-13] VITALS (114 sets, daily range): BP systolic 49–205; BP diastolic 35–101; PULSE 75–135; RESP 0–32; TEMP 36.2–36.9; O2SAT 81–100; BMI 21.9
--- NOTE | 2024-11-13 03:40 | XR_ITS ---
Examination: Venous duplex upper extremity sonogram, bilateral. Date and time of exam: November 13, 2024 0528 hours INDICATIONS: Redness at the IV injection site left arm this week Technique: Multiple sonographic images of the deep venous system have been obtained. B-mode/2-D grayscale imaging of vascular structures and Doppler spectral analysis (waveforms) and color performed Both legs are examined. Findings: Deep venous systems do not demonstrate abnormal echogenicity. All visualized deep veins exhibit compressibility. All visualized deep veins exhibit augmentation. Impression: Negative for deep vein thrombosis
[2024-11-13 05:07] LABS: Basophils % (Auto) 1 % (0-2.5); Eosinophils % (Auto) 1 % (0-10); Hematocrit 32.5 % (36.0-46.0); Hemoglobin 10.9 g/dL (12.0-16.0); Immature Granulocytes % (Auto) 1 % (0-0); Immature Granulocytes Auto 0.01 Thou/mm3 (0.00-0.00); Lymphocytes # (Auto) 0.5 Thou/mm3 (1.0-4.8); Lymphocytes % (Auto) 25 % (10-50); Mean Corpuscular HGB Conc 33.5 g/dl (31.0-37.0); Mean Corpuscular Hemoglobin 33.9 pg (25.0-35.0); Mean Corpuscular Volume 101 fL (80-100); Monocytes # (Auto) 0.2 Thou/mm3 (0.0-0.8); Monocytes % (Auto) 9 % (0-12); Neutrophils # (Auto) 1.3 Thou/mm3 (1.8-7.7); Neutrophils % (Auto) 65 % (37-80); Nucleated Red Blood Cell # 0.65 Thou/mm3 (0.00-0.00); Nucleated Red Blood Cell % 32 /100 WBC (0); Platelet Count 71 Thou/mm3 (140-440); RDW Standard Deviation 90.1 fL (36.4-46.3); Red Blood Count 3.22 Miln/mm3 (4.00-5.20)
[2024-11-13 05:24] LABS: Slide Review Platelets confirmed
[2024-11-13 05:26] LABS: Alanine Aminotransferase 15 U/L (10-49); Albumin, Serum 1.6 gm/dL (3.4-4.8); Albumin/Globulin Ratio 0.5 (1.2-2.2); Alkaline Phosphatase 85 U/L (46-116); Anion Gap 6 (7-16); Aspartate Amino Transferase 63 U/L (0-34); BUN/Creatinine Ratio 28 Ratio (12-20); Bilirubin,Total 0.7 mg/dL (0.3-1.2); Blood Urea Nitrogen 34 mg/dL (9-23); Calcium 7.4 mg/dL (8.3-10.6); Calcium (Corrected) 9.3 mg/dL (8.5-10.1); Carbon Dioxide 26.4 mMol/L (20.0-31.0); Chloride 105 mMol/L (98-107); Creatinine (Component) 1.2 mg/dL (0.6-1.3); Estimated Creatinine Clearance 22.5 mL/min (>60); Globulin 3.5 gm/dL (2.3-3.5); Glucose 95 mg/dL (74-106); Osmolality,Calculated 281 (275-295); Potassium 4.3 mMol/L (3.4-5.1); Sodium 137 mMol/L (136-145); Total Protein 5.1 gm/dL (5.7-8.2); eGFR 44 See Note
[2024-11-13] MEDS: FOLIC ACID 1 MG TABLET GT (09:08)
[2024-11-13] MEDS: LANSOPRAZOLE 30 MG TAB.RAP.DR GT (09:08)
[2024-11-13] MEDS: SUNITINIB PO (09:08)
[2024-11-13] MEDS: VIT B12/Vit C/FA (Nephrovite) TABLET 1 TAB PO (09:08)
--- NOTE | 2024-11-13 09:11 | PD.NEPHPROG ---
Documentation for date of: 11/13/24 Subjective Subjective Interval history: Informant daughter Ms. Harris is a 88-year-old [place] female with past medical history of gastric cancer status post partial gastrectomy on sunitinib malate (following with [facility] oncology), failure to thrive-s/p feeding tube, pancytopenia, chronic macrocytic anemia, paroxysmal A-fib (not on anticoagulation) and history of GI bleed presented to the emergency department yesterday complaining of fever and weakness and low oxygen saturation. Patient noted to be hypotensive. IV fluids were given in the emergency department. In the ER blood pressure was 70/35, heart rate 119 max temp was 101. Labs showed hemoglobin 8.5, platelets 50, sodium 149, BUN 45, creatinine 2.5, glucose 69, elevated LFTs. Pro-Alex 6.99. Flu and COVID-negative. Chest x-ray showed pneumonia. EKG sinus tach. Patient was given 2 L of fluid bolus, antibiotics Zosyn and doxycycline were initiated and subsequently transferred to telemetry. Patient currently seen in ICU on telemetry status. Renal consultation requested for worsening renal function. Home medications included allopurinol, sunitinib. 11/10/2024 patient currently seen in ICU. Resting comfortably. Alert and awake. Had a GI bleed and was transferred to ICU yesterday. Currently she seems to be stable. Not on any pressors. Blood pressure 129/99, heart rate 81. Hemoglobin 12.1, platelets 119. Sodium 149, potassium 3.6, BUN 38, creatinine 1.4, glucose 62, calcium 8, magnesium 2. Spoke to ICU team-start patient on D5W p.o. for hypoglycemia and hypernatremia. Currently on antibiotics. 11/11/2024 patient currently seen in medical floor. Moved out of ICU. Resting comfortably. Alert and awake. Blood sugar 92. Blood pressure 130/60, heart rate 80. Urine output seems to be acceptable. Edema seems to be better. Still having some shortness of breath. WBC 2.6, hemoglobin 11.2, platelets 74. Sodium 142, potassium 3.1, BUN 30, creatinine 1.2, calcium 7.7, phosphorus 2.6, magnesium 1.8. Electrolytes are all replaced. 11/13/2024 patient currently seen in medical floor. Resting comfortably. Labs, medications have been reviewed. Replace electrolytes. Currently in reverse isolation. Review of Systems Review of Systems Narrative Review of Systems: very hard of hearing. Patient denies any chest pain. Denies any nausea, vomiting. Has PEG tube. Shortness of breath and cough better. Exam Vital Signs Temp Pulse Resp BP Pulse Ox O2 Del Method O2 Flow Rate 36.6 C 92 20 141/89 H 92 L Room Air 1 11/13/24 04:00 11/13/24 04:00 11/13/24 04:00 11/13/24 04:00 11/13/24 04:00 11/13/24 04:00 11/12/24 11:56 Narrative Exam GENERAL APPEARANCE: Elderly lady currently seen in medical floor Dry mucosa CARDIOVASCULAR: Heart regular, no murmurs LUNGS/CHEST: Chest clear to auscultation. No rales, rhonchi, wheezing ABDOMEN: Soft, nontender, nondistended. No masses. Normal bowel sounds. Patient has a feeding tube EXTREMITIES: No edema, clubbing or cyanosis. SKIN: Skin exam normal without any rashes MUSCULOSKELETAL: In bed NEUROLOGICAL : Awake, tired Objective Labs 11/14/24 06:00 11/14/24 06:00 Labs: Laboratory Results - last 24 hr 11/13/24 04:23 WBC 2.0 L RBC 3.22 L Hgb 10.9 L Hct 32.5 L MCV 101 H MCH 33.9 MCHC 33.5 RDW Std Deviation 90.1 H Plt Count 71 L Neut % (Auto) 65 Lymph % (Auto) 25 [place] % (Auto) 9 Eos % (Auto) 1 Baso % (Auto) 1 Neut # (Auto) 1.3 L Lymph # (Auto) 0.5 L [place] # (Auto) 0.2 Eos # (Auto) 0.0 Baso # (Auto) 0.0 Immature Gran # (Auto) 0.01 H Absolute Nucleated RBC 0.65 H Immature Gran % 1 H Nucleated RBC % 32 H Sodium 137 Potassium 4.3 Chloride 105 Carbon Dioxide 26.4 Anion Gap 6 L BUN 34 H Creatinine 1.2 Estim Creat Clear Calc 22.5 L eGFR 44 L BUN/Creatinine Ratio 28 H Glucose 95 Calculated Osmolality 281 Calcium 7.4 L Corrected Calcium 9.3 Phosphorus 3.0 Magnesium 2.0 Total Bilirubin 0.7 AST 63 H ALT 15 Alkaline Phosphatase 85 Total Protein 5.1 L Albumin 1.6 L Globulin 3.5 Albumin/Globulin Ratio 0.5 L Misc Test Result Platelets confirmed Assessment & Plan Assessment and plan (1) Acute renal failure (ARF): Status: Acute (2) Hypernatremia: Status: Acute (3) Septic shock: Status: Acute (4) Atrial fibrillation with RVR: Status: Acute (5) Thrombocytopenia: Status: Acute (6) Acute GI bleeding: Status: Acute (7) Hypotension: Status: Acute Additional Assessment & Plan Additional Plan: (1) Acute renal failure (ARF): Status: Acute Assessment and plan: Acute renal failure secondary to prerenal azotemia. Creatinine trending down with IV fluids. Blood pressure low hemoglobin stable posttransfusion. Dr. Ledesma was consulted for possible GI bleed. Status post endoscopy continue with fluid resuscitation, packed red blood cells. (2) Hypernatremia: Status: Acute Assessment and plan: Sodium markedly improved to 138. Replace electrolytes. (3) Septic shock: Status: Acute Assessment and plan: Broad-spectrum antibiotics, fluids Shock seems to be resolved (4) Atrial fibrillation with RVR: Status: Acute Assessment and plan: Heart rate currently 80 (5) Thrombocytopenia: Status: Acute Assessment and plan: Platelets 112--74 (6) Acute GI bleeding: Status: Acute Assessment and plan: Dr. Ledesma on the case (7) Hypotension: Status: Acute Assessment and plan: Blood pressure better. Quality - progress note Quality Measures Quality Measures: VTE prophylaxis Reason for Continued Stay Reason for Continued Stay: further monitoring
--- NOTE | 2024-11-13 10:05 | CHAP ---
Responded to Rapid Response (10:05). Talked to daughter outside room. She said everything was ok.
--- NOTE | 2024-11-13 10:08 | XR_ITS ---
Examination: AP chest single view Technique one AP portable upright chest single view Exam date and time: November 13, 2024 1021 hours Comparison November 09, 2024 INDICATIONS: Hemoptysis FINDINGS: Significant heart failure Mild enlargement cardiac contour Prominent vascular congestion with perihilar basilar edema Large bilateral pleural effusions Prominent osteopenia IMPRESSION: Significant heart failure Consider superimposed bilateral pneumonia
--- NOTE | 2024-11-13 10:08 | EKG_ITS ---
[facility] Test Date: 2024-11-13 Pat Name: JACOBO MCNEAL [facility] Gender: Female [employer] Sealing Machine Operator: EMMA : [id number] Requested By: Adwoa Chang Order Number: [id number] Reading MD: Adwoa Chang Measurements Intervals [place] Rate: 108 P: -1 DC: 153 QRS: -2 QRSD: 73 T: 0 QT: 311 QTc: 418 Interpretive Statements SINUS TACHYCARDIA POSSIBLE INFERIOR MYOCARDIAL INFARCTION , PROBABLY OLD [30 ms Q WAVE IN II/aVF] ABNORMAL RHYTHM ECG WARNING: DATA QUALITY MAY AFFECT INTERPRETATION Compared to ECG 11/08/2024 23:55:42 Myocardial infarct finding now present Left-axis deviation no longer present T-wave abnormality no longer present Possible ischemia no longer present /store/S0/[id number]/ecg/[id number].pdf
[2024-11-13 10:44] LABS: Basophils % (Auto) 0 % (0-2.5); Eosinophils % (Auto) 1 % (0-10); Hematocrit 34.6 % (36.0-46.0); Hemoglobin 11.4 g/dL (12.0-16.0); Immature Granulocytes % (Auto) 1 % (0-0); Immature Granulocytes Auto 0.01 Thou/mm3 (0.00-0.00); Lymphocytes # (Auto) 0.7 Thou/mm3 (1.0-4.8); Lymphocytes % (Auto) 33 % (10-50); Mean Corpuscular HGB Conc 32.9 g/dl (31.0-37.0); Mean Corpuscular Hemoglobin 33.7 pg (25.0-35.0); Mean Corpuscular Volume 102 fL (80-100); Monocytes # (Auto) 0.2 Thou/mm3 (0.0-0.8); Monocytes % (Auto) 8 % (0-12); Neutrophils # (Auto) 1.2 Thou/mm3 (1.8-7.7); Neutrophils % (Auto) 58 % (37-80); Nucleated Red Blood Cell # 0.48 Thou/mm3 (0.00-0.00); Nucleated Red Blood Cell % 24 /100 WBC (0); RDW Standard Deviation 91.8 fL (36.4-46.3); Red Blood Count 3.38 Miln/mm3 (4.00-5.20)
--- NOTE | 2024-11-13 10:59 | PC.SS ---
Follow up note: SS met with patient and daughter at bedside to discucss d/c plans. Patient was a possible d/c home today. Tentative d/c plan was home with home health. However, shortly after patient had a rapid response. Daughter present. Patient to transfer to ICU.
[2024-11-13 11:00] LABS: INR 1.3 (0.9-1.3); Platelet Count 75 Thou/mm3 (140-440); Prothrombin Time 13.6 Seconds (9.0-12.2)
[2024-11-13] MEDS: TRANEXAMIC ACID 1,000 MG IVPB 1,000 MG/100 ML BAG 200 MG IV ×2 (11:25→16:00)
[2024-11-13] MEDS: OCTREOTIDE ACET INJ 50 mCg/ML VIAL 80 MCG IV (11:26)
[2024-11-13] MEDS: OCTREOTIDE ACET INJ 1,000 MCG in SODIUM CHLORIDE 0.9% 100 ML 5.1 MCG IV (11:26)
[2024-11-13] MEDS: PANTOPRAZOLE/NS 80MG IV PREMIX 80 MG/100 ML BAG 400 MG IV (11:29)
--- NOTE | 2024-11-13 11:33 | XR_ITS ---
Examination: AP chest single view Technique one AP portable upright chest single view Exam date and time: November 13, 2024 1149 hours Comparison November 13, 2024 INDICATIONS: Post orogastric tube placement FINDINGS: Orogastric tube in stomach satisfactory position Significant heart failure with edema and/or pneumonia throughout the lungs and large pleural effusions IMPRESSION: Orogastric tube in stomach satisfactory position
[2024-11-13] MEDS: PROCHLORPERAZINE INJ 5 MG/ML VIAL 2 ML 10 MG IM (11:39)
--- NOTE | 2024-11-13 11:58 | XR_ITS ---
Examination: CT abdomen with intravenous contrast CT pelvis with intravenous contrast 2-D coronal reconstructions 2-D sagittal reconstructions Date and time of exam:November 14, 2024 0954 hrs. Indications: Coughing up blood abdominal pain today, tumor mass in the left upper abdomen on CT study 06/11/2024. CTDI: vol (mGy) 10.7 DLP: (mGycm) 319 Technique: Multiple axial sections of the abdomen and pelvis have been obtained. 64 slice high-resolution scanner used. 3 mm axial sections have been obtained, post intravenous injection 30 cc [id number] 2-D sagittal, coronal reconstructions obtained. Low dose protocols were performed. One or more of the following dose reduction techniques were used; automated exposure control, adjustment of the mA and/or KV according to patient size, use of iterative reconstruction technique. Findings: Significant bilateral pleural effusions Pneumonia and atelectasis in the lower lung zones Mild to moderate enlargement cardiac contour Orogastric tube in the stomach Liver irregular in contour with significant ascites Multiple surgical clips in the upper left abdomen Gastrostomy tube in the stomach Mass in the left upper abdomen anterior to the left kidney measure smaller 6.1 cm compared to 8.0 cm on June 11, 2024 The gallbladder appears distended Pancreas is poorly visualized Anasarca No hydronephrosis Aorta normal size Colonic and small bowel loops are thickened, enteropathy pattern Bladder intact Moderate osteopenia Impression: Significant bilateral pleural effusions Bilateral pneumonia and atelectasis Smaller mass in the left upper abdomen anterior to the left kidney Cirrhosis Significant ascites Markedly distended gallbladder, recommend hepatobiliary sonography follow-up Hepatic colopathy, hepatic enteropathy
[2024-11-13] MEDS: PANTOPRAZOLE INJ 40 MG VIAL 80 MG IV (12:25)
[2024-11-13] MEDS: PANTOPRAZOLE/NS 80MG IV PREMIX 80 MG/100 ML BAG 10 MG IV (12:28)
[2024-11-13 12:58] LABS: Slide Review Platelets confirmed
[2024-11-13] MEDS: ETOMIDATE INJ 2 MG/ML VIAL 10 ML 10 MG IVP (13:05)
[2024-11-13] MEDS: Norepinephrine/D5W 8mg/250ml 8 MG/250 ML BAG 4.635 MG IV (13:05)
[2024-11-13] MEDS: fentaNYL CIT INJ 50 mCg/ML AMP 2ML IVP (13:05)
[2024-11-13] MEDS: ROCURONIUM INJ 10 MG/ML VIAL 10 ML 50 MG IVP (13:06)
[2024-11-13] MEDS: fentaNYL 2,500 MCG/250 ML BAG 2,500 MCG/250 ML BAG IV (13:08)
[2024-11-13] MEDS: PROPOFOL 1,000 MG IVPB 1,000 MG/100 ML VIAL 1.483 MG IV (13:08)
--- NOTE | 2024-11-13 13:13 | XR_ITS ---
Examination: AP chest single view TECHNIQUE: AP portable semiupright chest single view Exam date and time: November 13, 2024 1324 hours INDICATIONS: Hypoxic respiratory failure postintubation FINDINGS: Tracheal tube tip right mainstem bronchus Orogastric tube satisfactory position Prominent heart failure with edema and/or pneumonia in the lungs and significant left pleural fluid IMPRESSION: Retract the tracheal tube 7 cm
[2024-11-13 13:14] LABS: Lactate (Lactic Acid) 3.1 mMol/L (0.4-2.0)
[2024-11-13] MEDS: MIDAZOLAM INJ 1 MG/ML VIAL 2 ML 2 MG IVP (13:16)
[2024-11-13 13:23] LABS: Basophils % (Auto) 0 % (0-2.5); Eosinophils % (Auto) 1 % (0-10); Immature Granulocytes % (Auto) 1 % (0-0); Immature Granulocytes Auto 0.01 Thou/mm3 (0.00-0.00); Lymphocytes # (Auto) 0.4 Thou/mm3 (1.0-4.8); Lymphocytes % (Auto) 24 % (10-50); Mean Corpuscular HGB Conc 33.2 g/dl (31.0-37.0); Mean Corpuscular Volume 103 fL (80-100); Monocytes # (Auto) 0.1 Thou/mm3 (0.0-0.8); Monocytes % (Auto) 6 % (0-12); Neutrophils # (Auto) 1.2 Thou/mm3 (1.8-7.7); Neutrophils % (Auto) 69 % (37-80); Nucleated Red Blood Cell # 0.35 Thou/mm3 (0.00-0.00); Nucleated Red Blood Cell % 21 /100 WBC (0); RDW Standard Deviation 90.1 fL (36.4-46.3); Red Blood Count 2.44 Miln/mm3 (4.00-5.20)
--- NOTE | 2024-11-13 13:28 | XR_ITS ---
Examination: AP chest single view Cranial AP portable semiupright chest single view Exam date and time: November 13, 2024 1328 hours COMPARISON: November 13, 2024 1324 hours INDICATIONS: Reposition tracheal tube. FINDINGS: Tracheal tube tip right mainstem bronchus Film is otherwise unchanged IMPRESSION: Retract the tracheal tube 3 cm
--- NOTE | 2024-11-13 13:31 | XR_ITS ---
Examination: AP chest single view Technique one AP portable semiupright chest single view Exam date and time: 12/10/2024 1337 hours Comparison November 13, 2024 1328 hours INDICATIONS: Reposition tracheal tube FINDINGS: Endotracheal tube tip 4.4 cm above ana maría Orogastric tube in satisfactory position Prominent edema and/or pneumonia in both lungs with significant left pleural fluid IMPRESSION: Endotracheal tube tip 4.4 cm above ana maría
[2024-11-13] MEDS: VASOPRESSIN IN NS IVPB 20 UNIT/100 ML BAG 9 UNIT IV (13:39)
[2024-11-13 13:49] LABS: Hemoglobin 8.3 g/dL (12.0-16.0); Platelet Count 58 Thou/mm3 (140-440); White Blood Count 1.7 Thou/mm3 (3.6-11.0)
--- NOTE | 2024-11-13 14:20 | PC.RT ---
initial intubation was at 22cm at gum pulled ETT back to 16 @ the gum per yadira and
--- NOTE | 2024-11-13 14:28 | ESPR_ITS ---
Documentation for date of: 11/13/24 Subjective Subjective Interval history: 11/11/2024: Patient examined at bedside today. No acute overnight events. Family reiterates that they do not want any invasive procedures, however they still want to continue with full code. They say that they do not want to do any procedures and want to see her improve. They are open to seeing hospice at this time. 11/12/2024: Patient examined at bedside today. No acute overnight events. director of patient financial services including hospice trying to contact family at this time however has not done so yet in regards to possible initiation of hospice. Patient reports she is doing okay and is continuing to have tube feeds and oral intake dysphagia pur?ed diet. H&H 11 and 32 respectively, white count 2.1, BUN/creatinine of 30 and 1.2. No other complaints at this time. 11/13/2024: Patient examined at bedside today. No acute overnight events. Family does not want to pursue hospice at this time, and is wondering when patient will get discharged. Hemoglobin at 10.9 today, compared to 11 yesterday. BUN/creatinine of 35.2 respectively. No other complaints at this time. Exam Vital Signs Temp Pulse Resp BP Pulse Ox O2 Del Method O2 Flow Rate 97.6 F 79 22 H 128/82 100 Room Air 1 11/13/24 14:00 11/13/24 14:00 11/13/24 13:45 11/13/24 14:00 11/13/24 13:45 11/13/24 08:00 11/13/24 08:00 Narrative Exam General: AAOx3, cachexia, temporal muscle wasting bilat, NAD, clavicles present with little to no muscle surrounding, weak and frail elderly woman HEENT: Dry mucous membranes, conjunctiva clear, EOMI, PERRLA, Cardiovascular: S1, S2, radial pulses +2 bilat, regular rhythm and rate Pulmonary: CTAB bilat no cough, no wheezing GI: No tenderness to light or deep palpitation, no guarding, rigidity, rebound tenderness or distension, PEG present Extremities: No presence of trace or pitting edema in lower extremities bilaterally, dorsalis pedis pulses +2 bilaterally, little muscle definition in LE Neuro: AAOx3, no focal motor or sensory deficits in the UE or LE bilat Psych: Able to somewhat cooperate Objective Labs 11/14/24 12:05 11/14/24 06:00 Labs: Laboratory Results - last 24 hr 11/13/24 11/13/24 11/13/24 04:23 10:21 12:55 WBC 2.0 L 2.0 L 1.7 L RBC 3.22 L 3.38 L 2.44 L Hgb 10.9 L 11.4 L 8.3 L D Hct 32.5 L 34.6 L 25.0 L MCV 101 H 102 H 103 H MCH 33.9 33.7 34.0 MCHC 33.5 32.9 33.2 RDW Std Deviation 90.1 H 91.8 H 90.1 H Plt Count 71 L 75 L 58 L D Neut % (Auto) 65 58 69 Lymph % (Auto) 25 33 24 [place] % (Auto) 9 8 6 Eos % (Auto) 1 1 1 Baso % (Auto) 1 0 0 Neut # (Auto) 1.3 L 1.2 L 1.2 L Lymph # (Auto) 0.5 L 0.7 L 0.4 L [place] # (Auto) 0.2 0.2 0.1 Eos # (Auto) 0.0 0.0 0.0 Baso # (Auto) 0.0 0.0 0.0 Immature Gran # (Auto) 0.01 H 0.01 H 0.01 H Absolute Nucleated RBC 0.65 H 0.48 H 0.35 H Immature Gran % 1 H 1 H 1 H Nucleated RBC % 32 H 24 H 21 H PT 13.6 H INR 1.3 Sodium 137 Potassium 4.3 Chloride 105 Carbon Dioxide 26.4 Anion Gap 6 L BUN 34 H Creatinine 1.2 Estim Creat Clear Calc 22.5 L eGFR 44 L BUN/Creatinine Ratio 28 H Glucose 95 Calculated Osmolality 281 Lactic Acid 3.1 H Calcium 7.4 L Corrected Calcium 9.3 Phosphorus 3.0 Magnesium 2.0 Total Bilirubin 0.7 AST 63 H ALT 15 Alkaline Phosphatase 85 Total Protein 5.1 L Albumin 1.6 L Globulin 3.5 Albumin/Globulin Ratio 0.5 L Misc Test Result Platelets confirmed Platelets confirmed Blood Type A Positive Antibody Screen NEGATIVE Crossmatch See Detail Blood Bank Wristband ID Yes Quality Measures Quality Measures VTE prophylaxis (SCDs) Advance care planning discussed with:: patient and child Assessment & Plan Assessment Current Active Medications: Generic Name Dose Route Start Last Admin Trade Name Freq PRN Reason Stop Dose Admin Acetaminophen 650 mg 11/09/24 08:42 Acetaminophen 325 Mg Tablet PO 12/09/24 01:01 Q6H PRN Fever >100 Albuterol 2.5 mg 11/13/24 15:00 Albuterol Rt 2.5 Mg/0.5 Ml Nebu INH 12/13/24 14:59 Q4HRRT LAKESHA Allopurinol 100 mg 11/09/24 14:00 11/09/24 14:04 Allopurinol 100 Mg Tablet PO 12/09/24 13:59 Not Given DAILY LAKESHA Sunitinib Malate 25 0 ea 11/11/24 09:30 11/13/24 09:08 Mg Capsules PO 12/11/24 09:29 1 capsule DAILY LAKESHA Administration Folic Acid 1 mg 11/12/24 09:15 11/13/24 09:08 Folic Acid 1 Mg Tablet GT 12/09/24 08:59 1 mg QDAY LAKESHA Administration Octreotide Acetate 1,000 mcg/ 102 mls @ 5.1 mls/hr 11/13/24 11:05 11/13/24 11:26 Sodium Chloride IV 11/18/24 11:05 50 mcg/hr .Q20H LAKESHA 5.1 mls/hr Administration Protocol 50 MCG/HR Pantoprazole Sodium 80 mg in 100 mls @ 10 mls/hr 11/13/24 11:06 11/13/24 12:28 Protonix/Ns 80mg Iv Premix IV 11/16/24 09:05 10 mls/hr Q10H LAKESHA Administration Tranexamic Acid 1,000 mg in 100 mls @ 200 mls/hr 11/13/24 11:12 11/13/24 11:25 Tranexamic Acid Ivpb IV 200 mls/hr [id number] PRN Administration BLEEDING Norepinephrine/Dextrose 8 mg in 250 mls @ 4.635 mls/hr 11/13/24 11:55 11/13/24 13:45 Levophed In D5w 8mg/250ml IV 12/13/24 11:54 0.23 mcg/kg/min .Q24H PRN 21.322 mls/hr PER PROTOCOL Titration Protocol 0.05 MCG/KG/MIN Vasopressin/Sodium Chloride 20 unit in 100 mls @ 9 mls/hr 11/13/24 13:27 11/13/24 13:39 Vasostrict/Ns Ivpb IV 12/13/24 13:26 0.03 unit/min .Q11H7M PRN 9 mls/hr PER PROTOCOL Administration Protocol 0.03 UNIT/MIN Fentanyl Citrate 2,500 mcg in 250 mls @ 2.5 mls/hr 11/13/24 13:39 11/13/24 14:00 Sublimaze Inj 2,500 Mcg/250 Ml Bag IV 11/18/24 13:38 25 mcg/hr .Q24H PRN 2.5 mls/hr PER PROTOCOL Titration Protocol 25 MCG/HR Propofol 1,000 mg in 100 mls @ 1.483 mls/hr 11/13/24 13:39 11/13/24 13:10 Diprivan Ivpb IV 12/13/24 13:38 0 mcg/kg/min .Q24H PRN 0 mls/hr PER PROTOCOL Titration Protocol 5 MCG/KG/MIN Vitamin B Complex/Vit C/Folic Acid 1 tab 11/09/24 09:00 11/13/24 09:08 Vit B12/Vit C/Fa (Nephrovite) Tablet PO 12/09/24 08:59 1 tab QDAY LAKESHA Administration Plan Assessment Patient is a 88 years old female with past medical history of gastric cancer status post partial gastrectomy on sunitinib malate (following with [facility] oncology), failure to thrive on PEG tube, pancytopenia, chronic macrocytic anemia, paroxysmal A-fib (not on anticoagulation) and history of GI bleed who presented to [facility] ([facility] emergency department on 11/08/2024 with a chief complaint of fever, weakness and low blood pressure. On presentation in ED BP 70/35, P 119, RR 16, temp 98.4, O2 sat 90 on room air. ED labs significant for RBC 2.27, hemoglobin 8.5, hematocrit 27.9, MCV 123, MCH 37.4, MCHC 30.5, platelet 50,000, sodium 149, chloride 111, BUN 45, creatinine 2.5. FOBT was positive and she was admitted for further evaluation, GI was consulted. She underwent EGD on 11/09/24 showing active bleeding in anastomotic site. Simultaneously repeat CBC showed Hgb 6.7, she was ordered 2 units of pRBCs and was transferred to ICU for further management. Today her hgb is improved at 12.1. She was downgraded to medical floor for continuation of care on 11/10/24. #Active gastric bleeding. #Acute blood loss anemia, improved. #Symptomatic anemia FOBT positive. Pt has hx of GI Bleed Pt also had a dark bowel movemenet this morning GI consulted. EGD showed active bleeding at anastomotic site. 2u pRBCs transfused Family states that they do not want surgery for the patient at this time If bleed is likely related to anastomosis, there is high risk for patient to rebleed Patient may pursue hospice with family at this time, however patient has not spoken with hospice yet PT recommends home health upon discharge Patient's family denying hospice at this time Discussed with the patient's family and discussed that patient is at high risk for life-threatening bleed at any time Plan: -General Surgery consulted, appreicate recs -Tube feeds and dysphagia pur?ed diet -Continue to monitor hemoglobin with hematology #Acute hypoxic respiratory failure, improved #Sepsis, secondary to, improved #Bilateral bibasilar pneumonia. #Lactic acidosis, improving. Patient presented with fever, shortness of breath, low SpO2, hypotension. Fever of 101 noted at home, chest x-ray on presentation in ED shows bibasilar pneumonia, patient requiring supplemental oxygen to maintain SpO2 more than 92. On admission lactate 5.6, procal 6.99, high suspicion of bacterial pneumonia. Patient was significantly hypotensive on presentation, was given 2 L bolus in ED. Patient given Zosyn and doxycycline x 1 in ED, sepsis alert called. MRSA negative Blood cultures no growth after 2 days RSV negative in ED Urine culture unremarkable Plan: ? Supplemental oxygen as needed, wean down as tolerated #Acute on chronic kidney injury. #CKD stage IIIa. On presentation BUN 45, creatinine 2.0, GFR 24. Baseline BUN 36, creatinine 1.0 GFR 55 Patient was given 2 L NS bolus in ED, WILLIE likely prerenal in setting of sepsis Creatinine 1.2 today Plan: -Avoid nephrotoxic agents. -Renally dose medications. #Hyperosmolar Hypernatremia, resolved Likely related to pt getting too much normal saline with sepsis bolus Plan: #NSTEMI type II, likely related to demand ischemia, resolved. Troponin 0.404 -> 0.331. #Failure to thrive status post PEG tube placement. Patient has history of gastric cancer status post surgery, had failure to thrive postop, had PEG tube placed for nutrition supplementation. Per family patient has good p.o. intake, requesting discontinuation of PEG tube RD recommends to resume tube feeds with Jevity and also recreational feeds of pur?ed diet Speech therapy recommends pur?ed diet with liquids Speech recommends to resume tube feeds and dysphagia pur?ed diet Patient's family denying hospice at this time Plan: -Referral to speech therapy. ?On dysphagia pur?ed diet along with tube feeds -Dietitian consult. -GI consult, appreciated recs. ?Continue with Nephro-Isaac and folic acid 1 mg #Macrocytic anemia. #Thrombocytopenia. Patient's hemoglobin 8.5, MCV 123 on presentation, platelet count 50,000. Patient has chronic macrocytic anemia secondary to partial gastrectomy Plan: -Trend with CBC. -Folate 1 mg qday. -B12 Injection. #Paroxysmal A-fib. Patient has history of paroxysmal A-fib, was discharged on metoprolol succinate 100 mg. Plan: -Pending med reconciliation, consider resuming metoprolol succinate 100 mg in a.m. -Keep potassium more than 4, magnesium more than 2. -Telemetry monitoring. -Holding A/C in setting of possible GI bleed ?SCDs #Gastric cancer by history Sees [facility] oncologist Plan: Continue with home Sunitinib malate 25 mg. #Health Maintenance Disposition: downgraded to telemetry for continuation of care. DVT prophylaxis: SCDs. GI prophylaxis: Protonix Diet: Pur?ed recreational feeds and PEG diet CODE STATUS: Full code Patient seen and care discussed with my senior resident, Dr. Dixon, and my attending physician, Dr. Cathryn Flanagan, PGY-1 LPatient examined and case discussed with the team including attending physician. Note reviewed, I agree with the care plan as documented. Ms Harris is a 88-year-old Tagalog speaking female admitted for acute hypoxic respiratory failure and sepsis secondary to bibasilar pneumonia. Flu and RSV negative in the ED. She was also found to have WILLIE, hypernatremia and GI bleed. FOBT positive on admission, GI Dr. Ledesma consulted for further evaluation. Patient does have a history of gastric cancer s/p partial gastrectomy. She was also noted to have macrocytic anemia. Patient was treated with IV Zosyn, Doxycycline dc'd as follow-up MRSA nasal screen was negative. Will continue maintenance D5W at 60 cc/h. Hold all anticoagulation for paroxysmal A-fib until further GI evaluation. RR at 9:20 am : Patient was found vomiting blood, 400 to 500 cc, over approximately 25-30 minutes. Stat blood products, chemistry panel, H&H, lactic acid, CXR, ABG and TXA 1g ordered. Saturations remained between 89-95% throughout the RR. ICU team was consulted as BP dropped from 140s systolic to 110s. Multiple goals of care meetings were held with patient's daughter and counseled on high risk for life-threatening GI bleed or perforation. Dr Ledesma was informed who continues to recommend surgery but family has actively declines surgical intervention, appreciate GI recommendations nevertheless. Patient was transferred to ICU for further monitoring and care. Appreciate ICU team's prompt response to rapid and take over of patient care. - Steve Dixon MD, PGY 2 Disclaimer: The document below may not be free of grammatical/phonetic/typographic errors due to use of voice recognition software. This does not dissuade from the commitment to providing health care with the patient's best interest in mind. L Attending Provider Attestation/Addendum I have examined the patient, reviewed labs and imaging findings, discussed the case with the resident(s), and reviewed entered orders. I agree with the plan of care as outlined in this note, with these additional summaries/recommendations: Patient seen at bedside. No acute overnight events. While discussing patient's case with medical team rapid response was called. On arrival systolic blood pressure was noted to be in the 140s, O2 saturation 89 to 90%, and mild sinus tachycardia. Rapid response called for hematemesis. While present at bedside patient was noted to vomit approximately 400 to 500 cc of bright red blood in approximately 30 minutes. We ordered stat blood products, chemistry panel, H&H, lactic acid, CXR, and ABG. ICU team was immediately consulted as patient's blood pressure was noted to be decreasing and continued to vomit blood. ICU team was consulted and recommended TXA and has agreed to accept the patient for ICU admission. Multiple goals of care meetings were held between myself and medical team with patient's daughter and siblings. The severity of patient's clinical status has been explained throughout hospitalization and family has previously declined any surgical intervention and including today. I have explained daily to patient's family that patient is high risk for life- threatening GI bleed or perforation and unfortunately appears to have suffered one of the above. I Explained to family that patient's bleeding is currently life threatening and her clinical status is critical. Multiple CODE STATUS discussions were held and family would like to continue with full code and full treatment except for surgical intervention. Thank you ICU team for being readily available and taking the patient under your care. We are available for any questions or concerns thank you Dr. Cathryn MD
--- NOTE | 2024-11-13 14:31 | EVENTNT_ITS ---
<Statement entered by Steve Dixon MD - 11/14/24 09:34> Patient was examined with the team including attending physician. Note reviewed, I agree with the event note as documented. - Steve Dixon M.D. PGY2 Disclaimer: The document bellow may not be free of grammatical/phonetic/typographic errors due to use of voice recognition software. This does not dissuade from the commitment to providing health care with the patient's best interest in mind. Documentation for date of: 11/13/24 Event Note Event Note: At around 10 AM, rapid response was called for an evaluation of hemoptysis. Patient had started to cough up blood, initial blood pressure 141 systolic, heart rate 110s, oxygen saturations 92. Patient continues to cough up blood for about the next 30 minutes in which at least 400 to 500 cc of blood were lost from patient. Blood was suctioned out from G-tube about 100 cc. Patient continued to maintain stable vitals, however with recycling of blood pressures it was noted that patient started to decrease in their systolic blood pressure dropping as low as 90. Chest x-ray was ordered for concerns for aspiration as patient had 8, in addition to ABG, CBC, and EKG. It was discussed with ICU who had recommended for further level of care at patient is at risk for any life- threatening bleed. Patient cannot be transferred for any vascular intervention as patient's family is denying any invasive procedures at this time. Patient had blood products including platelets and PRBCs ordered for them to be transfused. Patient was then upgraded to ICU for further management. It was discussed again with family in regards to CODE STATUS and they still want to pursue full CODE STATUS at this time. Patient seen and care discussed with my senior resident, Dr. Dixon, and my attending physician, Dr. Cathryn Flanagan, PGY-1 --- I have examined the patient, reviewed labs and imaging findings, discussed the case with the resident(s), and reviewed entered orders. I agree with the plan of care as outlined in this note, with these additional summaries/recommendations: Patient seen at bedside. No acute overnight events. While discussing patient's case with medical team rapid response was called. On arrival systolic blood pressure was noted to be in the 140s, O2 saturation 89 to 90%, and mild sinus tachycardia. Rapid response called for hematemesis. While present at bedside patient was noted to vomit approximately 400 to 500 cc of bright red blood in approximately 30 minutes. We ordered stat blood products, chemistry panel, H&H, lactic acid, CXR, and ABG. ICU team was immediately consulted as patient's blood pressure was noted to be decreasing and continued to vomit blood. ICU team was consulted and recommended TXA and has agreed to accept the patient for ICU admission. Multiple goals of care meetings were held between myself and medical team with patient's daughter and siblings. The severity of patient's clinical status has been explained throughout hospitalization and family has previously declined any surgical intervention and including today. I have e xplained daily to patient's family that patient is high risk for life- threatening GI bleed or perforation and unfortunately appears to have suffered one of the above. I Explained to family that patient's bleeding is currently life threatening and her clinical status is critical. Multiple CODE STATUS discussions were held and family would like to continue with full code and full treatment except for surgical intervention. Thank you ICU team for being readily available and taking the patient under your care. We are available for any questions or concerns thank you Dr. Cathryn MD
--- NOTE | 2024-11-13 14:32 | PC.PT ---
Patient will be dc from PT services secondary to patient is transferred to ICU.
[2024-11-13] MEDS: ALBUTEROL RT 2.5 MG/0.5 ML NEBU INH ×3 (14:41→22:35)
[2024-11-13 15:19] LABS: Base Excess -1 (-3-3); HCO3 24 mEq/L (20-26); Inspired Oxygen, FIO2 50 %; O2 Saturation 98 % (91-98); PCO2 41 mmHg (32.0-48.0); PO2 96 mmHg (83-108); pH, Arterial 7.38 (7.35-7.45)
[2024-11-13 15:20] LABS: Allen Test Performed/OK; Puncture Site Right Radial
--- NOTE | 2024-11-13 15:34 | PC.CM ---
Addendum entered by Dede Jackson RN 11/13/24 17:23: Paperwork faxed to [facility]. Addendum entered by Dede Jackson RN 11/13/24 16:55: I reviewed patient's information and patient is followed by oncology at [facility]. Patient has a past medical history of gastric cancer status post partial gastrectomy on sunitinib malate, failure to thrive, pancytopenia, chronic macrocytic anemia, paroxysmal A-fib (not on anticoagulation) and history of GI bleed. I reached out to [facility] and I initiated a transfer. Patient in currently in ICU on vent. Original Note: 1330 I received a referral to transfer patient patient for Interventional radiology for embolization of the gastric artery.
[2024-11-13 16:12] LABS: Reflex Lactate? Y
[2024-11-13 16:32] LABS: Lactate (Lactic Acid) 2.2 mMol/L (0.4-2.0)
[2024-11-13 17:17] LABS: Slide Review Platelets confirmed
--- NOTE | 2024-11-13 17:25 | PD.RESCONSUL ---
HPI Data of Consult Requesting Physician: Jerry Lockett MD Admitting Provider: Taqueria Kong MD Attending Provider: Jerry Lockett MD Primary Care Provider: Gopal Dawson MD Consult Narrative Reason for consult: Hypovolemic shock History of present illness: Patient is a 88-year-old female with past medical history significant for gastric cancer status post partial gastrectomy, failure to thrive, pancytopenia, chronic macrocytic anemia, paroxysmal A-fib not on anticoagulation, history of GI bleed who presented to the hospital on 11/08/2024 with generalized weakness and hypotension. Patient initially was upgraded to ICU on 11/09/2024 for closer monitoring after patient had an EGD performed and showed active GI bleed, requiring 2 units of packed red blood cells. Since hospital stay, patient's hemoglobin hematocrit have been stable until this morning, 11/13/24. Patient had a rapid response for hemoptysis, losing about 400 to 500 cc of blood. Patient's blood continue to be suctioned from her G-tube. Due to patient's critical condition and risk for future life-threatening bleed, patient was upgraded to ICU. Patient's prognosis and current goals of care was discussed with patient's family, and family has decided to continue with pursuing all interventions including embolization and efforts to stop the bleeding, but no surgical interventions. ICU was consulted for further management of hypovolemic shock in the setting of active GI bleed. cc:: cc: Jerry Lockett MD Review of Systems Review of Systems ROS Unobtainable: other Exam Vital Signs Temp Pulse Resp BP Pulse Ox O2 Del Method O2 Flow Rate 97.6 F 98 22 H 154/84 H 100 Room Air 1 11/13/24 14:00 11/13/24 16:00 11/13/24 15:19 11/13/24 16:15 11/13/24 16:00 11/13/24 08:00 11/13/24 08:00 FiO2 100 11/13/24 13:25 Narrative Exam (Prior to intubation) General Appearance: Pt in severe acute distress, seen wearing a oxy mask, actively coughing up blood, sitting upright in bed. HEENT: NC/AT, dry/fresh blood seen all over patient's mouth and lower neck, dentures noted Lungs: CTAB, no wheezes or crackles appreciated CVS: RRR, S1/S2 heard, no murmurs or rubs appreciated ABD: Rigid, nondistended, bowel sounds heard, peg tube present EXT: no deformity/edema/lesions/cyanosis/clubbing, radial pulses 2+ BL, DP pulses 2 + BL SKIN: Skin exam normal without any rashes. Neuro: A&O x 1. Unable to assess further neurological status due to patient's critical condition Results Labs 11/14/24 09:25 11/14/24 06:00 Labs: Short CBC 11/13/24 11/13/24 11/13/24 Range/Units 04:23 10:21 12:55 WBC 2.0 L 2.0 L 1.7 L (3.6-11.0) Thou/mm3 Hgb 10.9 L 11.4 L 8.3 L D (12.0-16.0) g/dL Hct 32.5 L 34.6 L 25.0 L (36.0-46.0) % Plt Count 71 L 75 L 58 L D (140-440) Thou/mm3 BMP 11/13/24 04:23 Sodium 137 Potassium 4.3 Chloride 105 Carbon Dioxide 26.4 BUN 34 H Creatinine 1.2 Glucose 95 Calcium 7.4 L Liver Function 11/13/24 Range/Units 04:23 Total Bilirubin 0.7 (0.3-1.2) mg/dL AST 63 H (0-34) U/L ALT 15 (10-49) U/L Alkaline Phosphatase 85 (46-116) U/L Albumin 1.6 L (3.4-4.8) gm/dL ABG Interpretation ABG results: 11/13/24 15:02 ABG pH 7.38 ABG pCO2 41 ABG pO2 96 ABG HCO3 24 ABG O2 Saturation 98 ABG Base Excess -1 Quality Measures Quality Measures VTE prophylaxis (SCDs) Advance care planning discussed with:: significant other Medications Home Medications and Allergies Home Medications ?Medication ?Instructions ?Recorded ?Confirmed ?Type sunitinib malate 25 mg capsule 25 mg PO DAILY 08/11/24 11/10/24 History allopurinol 100 mg tablet 100 mg PO DAILY 10/07/24 11/10/24 History (Zyloprim) furosemide 20 mg tablet mg 11/10/24 History Allergies Allergy/AdvReac Type Severity Reaction Status Date / Time No Known Allergies Allergy Verified 11/08/24 22:58 Visit Medications Acetaminophen (Acetaminophen 325 Mg Tablet) 650 mg PO Q6H PRN PRN Reason: Fever >100 Stop: 12/09/24 01:01 Albuterol (Albuterol Rt 2.5 Mg/0.5 Ml Nebu) 2.5 mg INH Q4HRRT [facility] Stop: 12/13/24 14:59 Last Admin: 11/13/24 14:41 Dose: 2.5 mg Allopurinol (Allopurinol 100 Mg Tablet) 100 mg PO DAILY [facility] Stop: 12/09/24 13:59 Last Admin: 11/09/24 14:04 Dose: Not Given Sunitinib Malate 25 (Mg Capsules) 0 ea PO DAILY [facility] Stop: 12/11/24 09:29 Last Admin: 11/13/24 09:08 Dose: 1 capsule Folic Acid (Folic Acid 1 Mg Tablet) 1 mg GT QDAY [facility] Stop: 12/09/24 08:59 Last Admin: 11/13/24 09:08 Dose: 1 mg Octreotide Acetate 1,000 mcg/ (Sodium Chloride) 102 mls @ 5.1 mls/hr IV .Q20H [facility]; Protocol Stop: 11/18/24 11:05 Last Admin: 11/13/24 11:26 Dose: 50 mcg/hr, 5.1 mls/hr Pantoprazole Sodium (Protonix/Ns 80mg Iv Premix) 80 mg in 100 mls @ 10 mls/hr IV Q10H [facility] Stop: 11/16/24 09:05 Last Admin: 11/13/24 12:28 Dose: 10 mls/hr Norepinephrine/Dextrose (Levophed In D5w 8mg/250ml) 8 mg in 250 mls @ 4.635 mls/hr IV .Q24H PRN; Protocol PRN Reason: PER PROTOCOL Stop: 12/13/24 11:54 Last Titration: 11/13/24 17:06 Dose: 0.05 mcg/kg/min, 4.635 mls/hr Vasopressin/Sodium Chloride (Vasostrict/Ns Ivpb) 20 unit in 100 mls @ 9 mls/hr IV .Q11H7M PRN; Protocol PRN Reason: PER PROTOCOL Stop: 12/13/24 13:26 Last Titration: 11/13/24 17:08 Dose: 0.03 unit/min, 9 mls/hr Fentanyl Citrate (Sublimaze Inj 2,500 Mcg/250 Ml Bag) 2,500 mcg in 250 mls @ 2.5 mls/hr IV .Q24H PRN; Protocol PRN Reason: PER PROTOCOL Stop: 11/18/24 13:38 Last Titration: 11/13/24 16:38 Dose: 75 mcg/hr, 7.5 mls/hr Propofol (Diprivan Ivpb) 1,000 mg in 100 mls @ 1.483 mls/hr IV .Q24H PRN; Protocol PRN Reason: PER PROTOCOL Stop: 12/13/24 13:38 Last Titration: 11/13/24 13:10 Dose: 0 mcg/kg/min, 0 mls/hr Vitamin B Complex/Vit C/Folic Acid (Vit B12/Vit C/Fa (Nephrovite) Tablet) 1 tab PO QDAY [facility] Stop: 12/09/24 08:59 Last Admin: 11/13/24 09:08 Dose: 1 tab Discontinued Medications Acetaminophen (Acetaminophen 325 Mg Tablet) 650 mg PO Q6H PRN PRN Reason: Fever >101.5 Stop: 12/09/24 01:01 Cyanocobalamin (Cyanocobalamin Inj 1,000 Mcg/Ml Vial) 1,000 mcg IM X1 ONE Stop: 11/09/24 08:10 Last Admin: 11/09/24 09:42 Dose: 1,000 mcg Dextrose (Dextrose 50%-Water Inj 50 Ml Syringe) 50 ml IV X1 ONE Stop: 11/10/24 07:59 Last Admin: 11/10/24 08:01 Dose: 50 ml Etomidate (Etomidate Inj 2 Mg/Ml Vial 10 Ml) 10 mg IVP X1 ONE Stop: 11/13/24 13:35 Last Admin: 11/13/24 13:05 Dose: 10 mg Fentanyl Citrate (Fentanyl Cit Inj 50 Mcg/Ml Amp 2ml) 50 mcg IV Q2M PRN PRN Reason: MODERATE SEDATION Stop: 11/09/24 19:50 Fentanyl Citrate (Fentanyl Cit Inj 50 Mcg/Ml Amp 2ml) 50 mcg IVP X1 ONE Stop: 11/13/24 13:35 Last Admin: 11/13/24 13:05 Dose: 50 mcg Folic Acid (Folic Acid Inj 1 Mg/0.2 Ml) 1 mg IVP QDAY [facility] Stop: 12/09/24 08:59 Last Admin: 11/12/24 09:11 Dose: Not Given Piperacillin/Tazobactam/Dextrose (Zosyn) 3.375 gm in 50 mls @ 100 mls/hr IV X1 ONE Stop: 11/09/24 00:27 Last Infusion: 11/09/24 01:02 Dose: Infused Doxycycline Hyclate 100 mg/ (Sodium Chloride) 250 mls @ 125 mls/hr IV X1 ONE Stop: 11/09/24 02:00 Last Infusion: 11/09/24 03:42 Dose: Infused Sodium Chloride (Ns) 1,000 mls @ 999 mls/hr IV .Q1H1M ONE Stop: 11/09/24 01:02 Last Infusion: 11/09/24 01:43 Dose: Infused Sodium Chloride (Ns) 1,000 mls @ 999 mls/hr IV .Q1H1M ONE Stop: 11/09/24 01:02 Last Infusion: 11/09/24 01:43 Dose: Infused Dextrose/Sodium Chloride (D5-1/2ns) 1,000 mls @ 75 mls/hr IV .[id number] [facility] Stop: 12/09/24 01:14 Last Admin: 11/09/24 09:37 Dose: Not Given Cefepime HCl 1 gm/ Sodium (Chloride) 50 mls @ 100 mls/hr IV Q24H [facility] Stop: 11/16/24 01:14 Last Admin: 11/09/24 09:37 Dose: Not Given Azithromycin 500 mg/ Sodium (Chloride) 250 mls @ 250 mls/hr IV QDAY [facility] Stop: 11/16/24 01:08 Last Admin: 11/09/24 09:37 Dose: Not Given Dextrose/Sodium Chloride (D5-1/2ns) 1,000 mls @ 75 mls/hr IV .[id number] ONE Stop: 11/09/24 22:19 Cefepime HCl 1 gm/ Sodium (Chloride) 50 mls @ 100 mls/hr IV Q24H [facility] Stop: 11/16/24 08:59 Last Infusion: 11/09/24 11:03 Dose: Infused Azithromycin 500 mg/ Sodium (Chloride) 250 mls @ 250 mls/hr IV QDAY [facility] Stop: 11/16/24 09:14 Last Admin: 11/09/24 10:00 Dose: 250 mls/hr Dextrose (D5w) 1,000 mls @ 60 mls/hr IV .[id number] ONE Stop: 11/10/24 01:39 Last Infusion: 11/09/24 15:50 Dose: 75 mls/hr Albumin Human (Albuminar-25 Ivpb) 25 gm in 100 mls @ 100 mls/hr IV X1 ONE Stop: 11/09/24 09:41 Last Infusion: 11/09/24 11:03 Dose: Infused Dextrose (D5w) 250 mls @ 999 mls/hr IV .Q16M ONE Stop: 11/09/24 09:02 Last Infusion: 11/09/24 10:01 Dose: Infused Sodium Chloride (Ns 0.45%) 500 mls @ 999 mls/hr IV .Q31M ONE Stop: 11/09/24 10:15 Last Admin: 11/09/24 09:49 Dose: 999 mls/hr Piperacillin/Tazobactam/Dextrose (Zosyn) 3.375 gm in 50 mls @ 100 mls/hr IV Q8HR [facility] Stop: 11/16/24 15:59 Doxycycline Hyclate 100 mg/ (Sodium Chloride) 100 mls @ 100 mls/hr IV BID [facility] Stop: 11/16/24 20:59 Doxycycline Hyclate 100 mg/ (Dextrose) 100 mls @ 100 mls/hr IV BID [facility]; Protocol Stop: 11/16/24 20:59 Last Admin: 11/11/24 09:29 Dose: 100 mls/hr Piperacillin Sod/Tazobactam (Sod 3.375 gm/ Dextrose) 50 mls @ 12.5 mls/hr IV Q12HR [facility]; Protocol Stop: 11/16/24 11:14 Last Admin: 11/11/24 09:29 Dose: 12.5 mls/hr Dextrose (D5w) 1,000 mls @ 75 mls/hr IV .[id number] ONE Stop: 11/09/24 22:19 Last Admin: 11/13/24 14:53 Dose: Not Given Dextrose (D5w) 250 mls @ 999 mls/hr IV .Q16M ONE Stop: 11/09/24 15:55 Last Admin: 11/09/24 15:49 Dose: Not Given Dextrose (D5w) 1,000 mls @ 100 mls/hr IV .Q10H ONE Stop: 11/10/24 01:39 Last Admin: 11/09/24 21:48 Dose: 100 mls/hr Dextrose (D5w) 1,000 mls @ 75 mls/hr IV .[id number] [facility] Stop: 12/10/24 08:14 Last Admin: 11/12/24 15:42 Dose: Not Given Potassium Phosphate (Pot Phos 15 Mmol In Ns 250 Ml) 15 mmol in 250 mls @ 62.5 mls/hr IV X1 ONE Stop: 11/11/24 10:41 Last Admin: 11/11/24 10:16 Dose: 62.5 mls/hr Magnesium Sulfate (Magnesium Sulfate Ivpb) 2 gm in 50 mls @ 25 mls/hr IV X1 ONE Stop: 11/11/24 09:52 Last Admin: 11/11/24 09:26 Dose: 25 mls/hr Potassium Chloride (Kcl Ivpb) 10 meq in 100 mls @ 100 mls/hr IV Q1H [facility] Stop: 11/11/24 15:59 Last Admin: 11/11/24 14:51 Dose: 100 mls/hr Albumin Human (Albuminar-25 Ivpb) 25 gm in 100 mls @ 100 mls/hr IV X1 ONE Stop: 11/13/24 10:48 Last Admin: 11/13/24 11:43 Dose: Not Given Pantoprazole Sodium (Protonix/Ns 80mg Iv Premix) 80 mg in 100 mls @ 400 mls/hr IV X1 ONE Stop: 11/13/24 11:20 Last Admin: 11/13/24 11:29 Dose: 400 mls/hr Tranexamic Acid (Tranexamic Acid Ivpb) 1,000 mg in 100 mls @ 200 mls/hr IV [id number] PRN PRN Reason: BLEEDING Last Admin: 11/13/24 16:00 Dose: 200 mls/hr Lansoprazole (Lansoprazole 30 Mg Tab.Rap.Dr) 30 mg GT QDAY [facility] Stop: 12/12/24 09:14 Last Admin: 11/13/24 09:08 Dose: 30 mg Midazolam HCl (Midazolam Inj 1 Mg/Ml Vial 2 Ml) 2 mg IV Q2M PRN PRN Reason: Moderate Sedation Stop: 11/09/24 19:50 Midazolam HCl (Midazolam Inj 1 Mg/Ml Vial 2 Ml) 2 mg IVP X1 ONE Stop: 11/13/24 13:13 Last Admin: 11/13/24 13:16 Dose: 2 mg Non-Formulary Medication (Sunitinib Malate) 25 mg PO DAILY [facility] Stop: 12/09/24 13:59 Last Admin: 11/12/24 15:42 Dose: Not Given Octreotide Acetate (Octreotide Acet Inj 50 Mcg/Ml Vial) 80 mcg IV X1 ONE Stop: 11/13/24 11:06 Last Admin: 11/13/24 11:26 Dose: 80 mcg Pantoprazole Sodium (Pantoprazole Inj 40 Mg Vial) 40 mg IVP QDAY [facility] Stop: 12/10/24 08:59 Last Admin: 11/12/24 09:12 Dose: Not Given Pantoprazole Sodium (Pantoprazole Inj 40 Mg Vial) 40 mg IV BID [facility] Stop: 12/13/24 20:59 Pantoprazole Sodium (Pantoprazole Inj 40 Mg Vial) 40 mg IV BID [facility] Stop: 12/13/24 10:14 Last Admin: 11/13/24 11:43 Dose: Not Given Pantoprazole Sodium (Pantoprazole Inj 40 Mg Vial) 80 mg IV X1 ONE Stop: 11/13/24 11:56 Last Admin: 11/13/24 12:25 Dose: 80 mg Prochlorperazine Edisylate (Prochlorperazine Inj 5 Mg/Ml Vial 2 Ml) 10 mg IM X1 ONE; Protocol Stop: 11/13/24 11:08 Last Admin: 11/13/24 11:39 Dose: 10 mg Rocuronium [place] (Rocuronium Inj 10 Mg/Ml Vial 10 Ml) 50 mg IVP X1 ONE Stop: 11/13/24 13:35 Last Admin: 11/13/24 13:06 Dose: 50 mg Tranexamic Acid (Tranexamic Acid Inj 1,000 Mg/10 Ml Vial) 1,000 mg INH X1 ONE Stop: 11/13/24 10:46 Last Admin: 11/13/24 11:43 Dose: Not Given Assessment & Plan Plan NEURO #Sedated on mechanical ventilation -Patient on propofol and fentanyl at RASS goal of -3 CARDIO #Hypovolemic shock due to active upper GI bleed EGD showing ulceration with copious amounts of blood Status post 4 units of PRBCs, 1 FFP, 1 platelets Stabilized patient with 2 units of transaminase acid, and 1 amp of calcium gluconate in the setting of massive transfusion ? GI following, recommends no additional EGD at this time, and recommends tertiary center referral for possible gastroduodenal embolization - Will start transfer process to tertiary center once patient is stabilized ? Surgery consulted, appreciate recommendations ? No chemical anticoagulation -> SCDs for DVT prophylaxis ? Continue to monitor H&H every 4 - Continue to monitor patient's output from continuous suction from G-tube - Continue to transfuse per massive transfusion protocol, 1:1:1 pRBC, FFP:platelets if there happens to be a sudden Hgb drop or Hgb < 7 - Titrate Leophed to MAP > 65 #History of A-fib Currently not in A-fib and does not take AC due to history of GI bleed. Patient takes home metoprolol succinate 100 mg daily ? Continue to monitor in ICU - Continue to keep potassium and magnesium above 4 and 2 respectively - Will continue to hold medical DVT prophylaxis in the setting of active GI bleed, instead start mechanical via SCDs - Will continue to hold patient's home metoprolol in the setting of current sedation: Propofol #Elevated troponin- resolving Likely demand ischemia in setting of GI bleed Peaked at 0.[address] changes on EKG PULM #Acute hypoxic respiratory failure secondary to CHF exacerbation vs bilateral bibasilar pneumonia?improving CXR showed vascular congestion and BNP mildly elevated at 294. Finished antibiotic course ? Recommend diuresis ? Follow-up blood cultures ? 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 GI following, recommends no additional EGD at this time, and recommends tertiary center referral for possible gastroduodenal embolization - Ordered CTA abdomen pelvis with contrast - Gave patient both pantoprazole and octreotide bolus, and started pantoprazole and octreotide drips - Stabilized patient with 2 units of transaminase acid, and 1 amp of calcium gluconate in the setting of massive transfusion - Will start transfer process to tertiary center ? Surgery consulted, appreciate recommendations ? No chemical anticoagulation -> SCDs for DVT prophylaxis ? Continue to monitor H&H every 4 - Continue massive transfusion protocol if necessary - Continue to monitor patient's output from continuous suction from G-tube #Failure to thrive status post PEG tube placement. Patient has history of gastric cancer status post surgery, had failure to thrive postop, had PEG tube placed for nutrition supplementation. Per family patient has good p.o. intake, requesting discontinuation of PEG tube RD recommends to resume tube feeds with Jevity and also recreational feeds of pur?ed diet Speech recommends to resume tube feeds and dysphagia pur?ed diet ?On dysphagia pur?ed diet along with tube feeds -Dietitian consult. -GI consult, appreciated recs. ?Continue with Nephro-Isaac and folic acid 1 mg RENAL #WILLIE vs WILLIE on CKD-improving Baseline Cr 1.0 on 06/2024 -> current Cr 1.6 with GFR 31 Received IV fluids. ? 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 Continue to monitor H&H every 4 - Continue massive transfusion protocol if necessary -Continue to monitor patient's output from continuous suction from G-tube #Gastric cancer Follows [facility] oncologist Plan: Continue with home Sunitinib malate 25 mg. #Macrocytic anemia. #Thrombocytopenia. Patient's hemoglobin 8.5, MCV 123 on presentation, platelet count 50,000. Patient has chronic macrocytic anemia secondary to partial gastrectomy -Trend with CBC. -Folate 1 mg qday. -B12 Injection ENDO No acute/active disease ID #Community-acquired pneumonia?resolved MSK No acute/active disease PSYCH No acute/active disease Health Maintenance: DVT prophylaxis: SCDs in the setting of active GI bleed Diet: Tube feeds held Lines: Right femoral central line, arterial line Drips: Propofol, fentanyl, vasopressin, Levophed Vent: Tidal volume 250, respiratory rate 22,PEEP 5.0 CODE STATUS: DNR Disposition: Admitted to ICU for hypovolemic shock in the setting of acute blood loss, requiring massive transfusion protocol and pressor support Patient's plan and care discussed with my attending, Dr. Corrine Acuña MD PGY-2 Attending Provider Attestation/Addendum Patient seen and examined with above resident, Dana Acuña MD. I agree with the findings, assessment, and plan of care as documented except for any differences below. Patient with large volume upper GI bleed with known history of gastric cancer. Patient had approximately 600 cc of bright red blood out of both NG and pre-existing PEG tube. Patient with significant desaturation due to hematemesis and inadequate ability to control airway completely. Initially placed on oxygen mask at greater than 15 L. Patient's family updated throughout the course of transfer to the intensive care unit after rapid response with hypotension. Responded well to IV fluids and awaiting blood products administration due to pre-existing minor antibodies. Will transfuse FFP and PRBCs in a one-to-one ratio for now while we await platelets. Will monitor temperature, reversing coagulopathy, and optimize pH. Single dose of IV tranexamic acid was utilized though this may be of limited utility it may be enough of a stopgap to allow us to stabilize the patient. I had a el discussion with the patient's daughter and son with her present. Patient with known malignancy on TK inhibitor with limited treatment options at this point. During this hospitalization, patient has already underwent endoscopy with noted significant blood at the site of likely ulceration from underlying cancer. CT imaging showed stable size of malignant lesion within the wall of the stomach. Will repeat CTA to help guide role of potential transfer for IR embolization of the gastroduodenal artery. Prior to this, we will obtain imaging to ensure that this is the likely best treatment plan while we continue to volume resuscitate and stabilize the patient. Patient's family is aware that bleeding may be terminal but would like to exhaust all options short of surgical procedure, and remain open to endovascular intervention if feasible. I did explain to them clearly on multiple occasions that receiving center may decline given her prior history and potential inability to offer such advanced therapies to her. They understand this and remain hopeful to be aggressive, including maintaining full CODE STATUS at this time despite multiple conversations by GI, internal medicine, and now ICU team including myself. Given the patient's hypoxic respiratory failure and need to facilitate safe transfer for CT imaging and potential transfer to outside hospital for IR, patient was placed on mechanical ventilation successfully. Notable hypotension postintubation despite volume resuscitation including blood product administration requiring pressors, will add on sedation as appropriately tolerated by her hemodynamics. Patient's family is aware of ongoing plan of care including request for transfer. Total critical care time: I personally spent 90 minutes for review of physiologic parameters, directing plan of care throughout the day, coordination of care with other subspecialists and transfer center, and counseling patient's family extensively at bedside. This is exclusive of time spent teaching housestaff or performing any separate billable procedures. The patient continues require critical care services for hemorrhagic shock and acute hypoxic respiratory failure with high risk for mortality and further morbidity.
--- NOTE | 2024-11-13 17:58 | XR_ITS ---
Examination: AP chest single view Technique one AP portable supine chest single view Exam date and time: November 13, 2024 1821 hrs. Comparison November 13, 2024 1337 hrs. Indications: Post attempted central line placement Findings: No pneumothorax Heart failure pattern with cardiomegaly and vascular congestion as well as extensive bilateral pneumonia Endotracheal tube tip 7 cm above ana maría The orogastric tube is in the stomach Significant left pleural fluid Impression: No pneumothorax Significant bilateral pneumonia with associated heart failure Endotracheal tube tip 7 cm above ana maría
--- NOTE | 2024-11-13 18:11 | PD.RESPROC ---
Procedures Procedure Date / Time 11/13/241810 Procedure Narrative Procedure Narrative: Attending attestation: I was present for entire procedure. Patient tolerated procedure well with no immediate complications. Minimal blood loss. Central Line Placement Right Femoral: Indication(s): shock and poor, or inadequate peripheral venous access Informed consent obtained: obtained from surrogate decision maker Time out done, and the following verified: correct patient, side and site, procedure, patient position and implants and/or equipment Patient placed on monitor/pulse ox: Yes Hand Hygiene: scrub, soap & water and alcohol-based hand rub Max Sterile Barrier Techniques used: cap, mask, sterile gown, sterile gloves and sterile full body drape Central line prep: Chlorhexidine scrub and sterile drapes applied Local anesthesia used: lidocaine 1% Amount of anesthesia used (mL): 2 Ultrasound used for placement: Yes Sterile Technique if Ultrasound used, including sterile gel: yes Central line lumen inserted: single Post procedure: sutured in place, good blood return, all ports aspirated, flushed, capped and sterile dressing applied Patient tolerated procedure: well EBL(ml): 5 Procedure comment: The patient tolerated the procedure well and there were no complications. Procedure was performed under the guidance and assistance of Dr. Castle. Dana Acuña, PGY-2
[2024-11-13] MEDS: CALCIUM GLUC/NS 1000MG IVPB 1,000 MG/50 ML BAG 50 MG IV (18:17)
--- NOTE | 2024-11-13 18:22 | PD.RESPROC ---
Procedures Procedure Date / Time 11/13/24 1822 Procedure Narrative Procedure Narrative: Attending attestation: I was present for the entire procedure. Low saturation of 84% despite adequate preoxygenation OxyMask. Patient was maintaining upright positioning to minimize risk of hematemesis including management of airway. RSI was successful with single attempt. Significant blood within the oral and nasopharynx though there was no presence of blood on the glottis or vocal cords. ET tube was advanced and follow-up x-ray showed proximal right mainstem intubation, ET tube was promptly retracted to adequate position. Patient with bilateral breath sounds on exam and adequate gas exchange though notably hypotensive requiring increasing pressor requirements and volume resuscitation with ongoing blood product administration. Patient adequately stabilized within 10 to 15 minutes of the procedure. Intubation Indication(s): inability to protect airway Informed consent obtained: obtained from surrogate decision maker Time out done, and the following verified: correct patient, side and site, procedure, patient position and implants and/or equipment Sedative: etomidate Mg given: 10 Paralytic: rocuronium Mg given: 50 Laryngoscope: other (GlideScope) ET tube size: 7 ET tube uncuffed: No Tube secured depth (cm): 16 Tube secured location: lips Tube placement confirmation: visualized tube passing through cords, equal breath sounds bilaterally, no breath sounds over epigastrium and confirmation by capnometry Patient tolerated procedure: well and no complications EBL(ml): 5 Additional comments: Pre-oxygenation was provided with BVM. Induction was provided with 10 mg etomodate and 50 mg of Fentanyl and 50mg rocuronium. Orotracheal intubation was performed using video laryngoscopy, GlideScope with 7 endotracheal tube and with excellent view of vocal cords after blood was removed from view via suction. Estimated blood loss 5ml. Endotracheal tube position was confirmed by capnography. The endotracheal tube was secured at 16.5cm at gums. Proper intratracheal position of the endotracheal tube was verified on portable chest -x-ray. Attending Dr. Castle was present for the entire procedure. The patient tolerated the procedure well and there were no complications. Dana Acuña, PGY-2
--- NOTE | 2024-11-13 18:33 | PD.RESPROC ---
Procedures Procedure Date / Time 11/13/24 1833 Procedure Narrative Procedure Narrative: Attending Attestation: I was not present at the time of the procedure though I agree with the plan of care/ procedure as documented. Arterial Line Indication(s): frequent arterial line sampling and shock Informed consent obtained: obtained from surrogate decision maker Time out done, and the following verified: correct patient, side and site, procedure, patient position and implants and/or equipment Size (Gauge): 18 Technique used: guide wire technique Post-Procedure: line sutured into place and dry sterile dressing placed Patient tolerated procedure: well EBL(ml): 1 Complications: none Site: right and radial Procedure comment: Patient's procedure performed under the guidance of my senior resident, Dr. Marroquin PGY-4 and my attending, Dr. Castle. Dana Acuña, PGY-2
[2024-11-13 19:31] LABS: Reflex Lactate? Y
--- NOTE | 2024-11-13 19:44 | ESPR_ITS ---
Documentation for date of: 11/13/24 Subjective Subjective Interval history: Patient moved to ICU mechanically ventilated NGT in place bloodstained fluid from the NGT Baseline hemoglobin hematocrit 11.4 and 33.4 which is gone down to 8.3 and 25.0 platelet count 58,000 Exam Vital Signs Temp Pulse Resp BP Pulse Ox O2 Del Method O2 Flow Rate 97.5 F 79 22 H 140/75 H 100 Room Air 1 11/13/24 18:03 11/13/24 18:34 11/13/24 18:34 11/13/24 18:30 11/13/24 18:34 11/13/24 08:00 11/13/24 08:00 FiO2 30 11/13/24 18:34 Objective Labs 11/13/24 12:55 11/13/24 04:23 Labs: Laboratory Results - last 24 hr 11/13/24 11/13/24 11/13/24 04:23 10:21 12:55 WBC 2.0 L 2.0 L 1.7 L RBC 3.22 L 3.38 L 2.44 L Hgb 10.9 L 11.4 L 8.3 L D Hct 32.5 L 34.6 L 25.0 L MCV 101 H 102 H 103 H MCH 33.9 33.7 34.0 MCHC 33.5 32.9 33.2 RDW Std Deviation 90.1 H 91.8 H 90.1 H Plt Count 71 L 75 L 58 L D Neut % (Auto) 65 58 69 Lymph % (Auto) 25 33 24 [place] % (Auto) 9 8 6 Eos % (Auto) 1 1 1 Baso % (Auto) 1 0 0 Neut # (Auto) 1.3 L 1.2 L 1.2 L Lymph # (Auto) 0.5 L 0.7 L 0.4 L [place] # (Auto) 0.2 0.2 0.1 Eos # (Auto) 0.0 0.0 0.0 Baso # (Auto) 0.0 0.0 0.0 Immature Gran # (Auto) 0.01 H 0.01 H 0.01 H Absolute Nucleated RBC 0.65 H 0.48 H 0.35 H Immature Gran % 1 H 1 H 1 H Nucleated RBC % 32 H 24 H 21 H PT 13.6 H INR 1.3 Puncture Site ABG pH ABG pCO2 ABG pO2 ABG HCO3 ABG O2 Saturation ABG Base Excess FiO2 Sodium 137 Potassium 4.3 Chloride 105 Carbon Dioxide 26.4 Anion Gap 6 L BUN 34 H Creatinine 1.2 Estim Creat Clear Calc 22.5 L eGFR 44 L BUN/Creatinine Ratio 28 H Glucose 95 Calculated Osmolality 281 Lactic Acid 3.1 H Calcium 7.4 L Corrected Calcium 9.3 Phosphorus 3.0 Magnesium 2.0 Total Bilirubin 0.7 AST 63 H ALT 15 Alkaline Phosphatase 85 Total Protein 5.1 L Albumin 1.6 L Globulin 3.5 Albumin/Globulin Ratio 0.5 L Misc Test Result Platelets confirmed Platelets confirmed Platelets confirmed Blood Type A Positive Antibody Screen NEGATIVE Crossmatch See Detail Blood Bank Wristband ID Yes Blood Bank Comment FFP Ready 11/13/24 11/13/24 15:02 16:17 WBC RBC Hgb Hct MCV MCH MCHC RDW Std Deviation Plt Count Neut % (Auto) Lymph % (Auto) [place] % (Auto) Eos % (Auto) Baso % (Auto) Neut # (Auto) Lymph # (Auto) [place] # (Auto) Eos # (Auto) Baso # (Auto) Immature Gran # (Auto) Absolute Nucleated RBC Immature Gran % Nucleated RBC % PT INR Puncture Site Right Radial ABG pH 7.38 ABG pCO2 41 ABG pO2 96 ABG HCO3 24 ABG O2 Saturation 98 ABG Base Excess -1 FiO2 50 Sodium Potassium Chloride Carbon Dioxide Anion Gap BUN Creatinine Estim Creat Clear Calc eGFR BUN/Creatinine Ratio Glucose Calculated Osmolality Lactic Acid 2.2 H Calcium Corrected Calcium Phosphorus Magnesium Total Bilirubin AST ALT Alkaline Phosphatase Total Protein Albumin Globulin Albumin/Globulin Ratio Misc Test Result Blood Type Antibody Screen Crossmatch Blood Bank Wristband ID Blood Bank Comment Impressions Impression: Upper GI bleed secondary to gastric ulceration repeat endoscopy will not be helpful patient should be on hospice care as her prognosis is very poor Currently she is on 2 pressors and hypotensive transferred to a tertiary center would be extremely difficult discussed the case with internal medicine team ABG Interpretation ABG results: 11/13/24 15:02 ABG pH 7.38 ABG pCO2 41 ABG pO2 96 ABG HCO3 24 ABG O2 Saturation 98 ABG Base Excess -1 Assessment & Plan A&P Narrative # Melena # FOBT positive # Acute posthemorrhagic anemia Plan Fiberoptic esophagogastroduodenoscopy with possible biopsy possible therapeutic intervention under intravenous moderate sedation Informed consent obtained from the cashier courtesy booth and the family and this has been scheduled for today At the moment family intends to keep the PEG tube and we will reevaluate the stomach endoscopically on the inside serial CBC IV Protonix Will follow the patient Other medical problems include # Paroxysmal atrial fibrillation rate controlled not on Eliquis at this time # Gastric adenocarcinoma requiring partial gastrectomy at [facility] patient does see oncology there # Failure to thrive Thank you very much for the opportunity to participate in the care of this patient Time Spent With Patient Time: Total time spent is greater than 50% in coordination of care (as documented) at patient's floor/unit and/or counseling patient: Procedures Arterial Line Size (Gauge): 18
[2024-11-14] VITALS (118 sets, daily range): BP systolic 51–181; BP diastolic 30–170; PULSE 70–106; RESP 0–29; TEMP 35.8–37; O2SAT 92–100; BMI 21.9
[2024-11-14 01:30] LABS: Lactate (Lactic Acid) 3.4 mMol/L (0.4-2.0)
[2024-11-14 01:31] LABS: Basophils % (Auto) 2 % (0-2.5); Eosinophils % (Auto) 2 % (0-10); Hemoglobin 9.2 g/dL (12.0-16.0); Immature Granulocytes % (Auto) 0 % (0-0); Lymphocytes # (Auto) 0.4 Thou/mm3 (1.0-4.8); Lymphocytes % (Auto) 60 % (10-50); Mean Corpuscular HGB Conc 34.1 g/dl (31.0-37.0); Mean Corpuscular Hemoglobin 30.8 pg (25.0-35.0); Mean Corpuscular Volume 90 fL (80-100); Monocytes % (Auto) 2 % (0-12); Neutrophils # (Auto) 0.2 Thou/mm3 (1.8-7.7); Neutrophils % (Auto) 35 % (37-80); Nucleated Red Blood Cell # 0.11 Thou/mm3 (0.00-0.00); Nucleated Red Blood Cell % 18 /100 WBC (0); Platelet Count 101 Thou/mm3 (140-440); RDW Standard Deviation 53.5 fL (36.4-46.3); Red Blood Count 2.99 Miln/mm3 (4.00-5.20)
[2024-11-14 01:35] LABS: White Blood Count 0.6 Thou/mm3 (3.6-11.0)
[2024-11-14] MEDS: ALBUTEROL RT 2.5 MG/0.5 ML NEBU INH ×5 (02:47→22:29)
[2024-11-14 04:28] LABS: Reflex Lactate? Y
[2024-11-14 06:29] LABS: Lactate (Lactic Acid) 3.8 mMol/L (0.4-2.0)
[2024-11-14 06:31] LABS: Basophils % (Auto) 0 % (0-2.5); Eosinophils % (Auto) 1 % (0-10); Hematocrit 26.2 % (36.0-46.0); Immature Granulocytes % (Auto) 0 % (0-0); Lymphocytes # (Auto) 0.3 Thou/mm3 (1.0-4.8); Lymphocytes % (Auto) 46 % (10-50); Mean Corpuscular HGB Conc 33.2 g/dl (31.0-37.0); Mean Corpuscular Hemoglobin 30.4 pg (25.0-35.0); Mean Corpuscular Volume 92 fL (80-100); Monocytes # (Auto) 0.1 Thou/mm3 (0.0-0.8); Monocytes % (Auto) 7 % (0-12); Neutrophils # (Auto) 0.3 Thou/mm3 (1.8-7.7); Neutrophils % (Auto) 46 % (37-80); Nucleated Red Blood Cell # 0.09 Thou/mm3 (0.00-0.00); Nucleated Red Blood Cell % 13 /100 WBC (0); Platelet Count 111 Thou/mm3 (140-440); RDW Standard Deviation 56.1 fL (36.4-46.3); Red Blood Count 2.86 Miln/mm3 (4.00-5.20)
[2024-11-14 06:38] LABS: Base Excess -4 (-3-3); HCO3 23 mEq/L (20-26); Inspired Oxygen, FIO2 30 %; PCO2 53 mmHg (32.0-48.0); PO2 83 mmHg (83-108); pH, Arterial 7.25 (7.35-7.45)
[2024-11-14 06:39] LABS: Allen Test Not Performed; O2 Saturation 96 % (91-98); Puncture Site Arterial Line
[2024-11-14 06:40] LABS: Hemoglobin 8.7 g/dL (12.0-16.0); White Blood Count 0.7 Thou/mm3 (3.6-11.0)
[2024-11-14 07:07] LABS: Albumin, Serum 1.9 gm/dL (3.4-4.8); Anion Gap 9 (7-16); BUN/Creatinine Ratio 29 Ratio (12-20); Blood Urea Nitrogen 41 mg/dL (9-23); Calcium 7.8 mg/dL (8.3-10.6); Calcium (Corrected) 9.5 mg/dL (8.5-10.1); Carbon Dioxide 23.1 mMol/L (20.0-31.0); Chloride 107 mMol/L (98-107); Creatinine (Component) 1.4 mg/dL (0.6-1.3); Estimated Creatinine Clearance 19.3 mL/min (>60); Glucose 79 mg/dL (74-106); Osmolality,Calculated 286 (275-295); Phosphorous 5.2 mg/dL (2.4-5.1); Potassium 4.4 mMol/L (3.4-5.1); Sodium 139 mMol/L (136-145); eGFR 36 See Note
[2024-11-14 08:08] LABS: Base Excess -4 (-3-3); HCO3 24 mEq/L (20-26); Inspired Oxygen, FIO2 30 %; PCO2 56 mmHg (32.0-48.0); PO2 75 mmHg (83-108); pH, Arterial 7.24 (7.35-7.45)
[2024-11-14 08:11] LABS: O2 Saturation 96 % (91-98)
[2024-11-14 08:12] LABS: Allen Test Not Performed; Puncture Site Arterial Line
[2024-11-14 08:30] LABS: Path Review Blood Smear Sent to Pathologist
[2024-11-14] MEDS: OCTREOTIDE ACET INJ 1,000 MCG in SODIUM CHLORIDE 0.9% 100 ML 5.1 MCG IV (08:39)
[2024-11-14] MEDS: PANTOPRAZOLE/NS 80MG IV PREMIX 80 MG/100 ML BAG 10 MG IV (08:41)
[2024-11-14 09:26] LABS: Lactate (Lactic Acid) 3.7 mMol/L (0.4-2.0)
[2024-11-14 09:27] LABS: Reflex Lactate? Y
--- NOTE | 2024-11-14 09:34 | PC.CC ---
Addendum entered by Justine Jacinto RN 11/14/24 18:36: 1826 called ICU and spoke to Dr. Ma and informed him about conversation with Dr. Ledesma. He stated he will inform Dr. Leal. [address] Ledesma at [facility], I updated him about the transfer so far. He stated to call Dr. Leal ICU resident and let him know to call Dr. Ledesma at [facility] and tell him to reach out to his TC that he has accepted the pt. Addendum entered by Justine Jacinto RN 11/14/24 18:19: 1815 called [facility] TC, spoke to Arelis and informed. She stated Dr. Ledesma has not informed her that yet. She is waiting for his call. [address] Leal from ICU that he got call from Dr. Ledesma at [facility] and he is accepted the pt. I stated I will reach out to [facility] TC. Addendum entered by Justine Jacinto RN 11/14/24 18:13: 1800 received call from Arlette at [facility] TC. Arlette stated transfer is declined at [facility] due to no IR available at this time. Addendum entered by Justine Jacinto RN 11/14/24 16:18: 1613 called and informed [facility] declined saying IR is not an director of instructional technology service. Addendum entered by Justine Jacinto RN 11/14/24 16:17: 1612 called [facility], spoke to Josie to initiate the transfer. She stated transfer request is declined because IR is not an director of instructional technology service. Addendum entered by Justine Jacinto RN 11/14/24 16:16: [address] Leal and gave updates. He stated to try [facility] also. Addendum entered by Justine Jacinto RN 11/14/24 16:15: 1538 called [facility] TC, spoke to Sandip and initiated the transfer. She stated she will try [facility] first and then [facility]. I gave direct number for Dr. Leal to Sandip for peer to peer. Addendum entered by Justine Jacinto RN 11/14/24 15:37: 1537 received call from Cesar at [facility] that they are declining the transfer due to capacity. Addendum entered by Justine Jacinto RN 11/14/24 15:36: 1515 clinicals sent to [facility]. Addendum entered by Justine Jacinto RN 11/14/24 15:33: 1453 called [facility], spoke to Cesar and initiated the transfer. Cesar stated to fax clinicals. Addendum entered by Justine Jacinto RN 11/14/24 14:53: 1450 I called and asked Dr. Leal if it is OK to try other places for transfer if [facility] don't have bed. He stated OK to try other places. Addendum entered by Justine Jacinto RN 11/14/24 14:44: [address] Leal regarding conversation with [facility]. 1427 called [facility], spoke to Arelis and informed Hgb dropped significantly from 8.5 to 6.9 with 3 hours. Arelis stated they don't have beds at this time but if pt is loosing blood at that rate it is not safe for the transfer. She stated she will page her team and let them know. [address] Leal that pt is loosing blood and Hgb is 6.9 now. He wants me to see if I can reach out to [facility] to expedite the transfer. Original Note: 927 requested clinicals sent to [facility]. 922 called and informed Arelis at [facility] that family wants to proceed with the transfer per Dr. Ma. I gave the direct number of Dr. Leal to Arelis for peer to peer per Dr. Ma orders. I also informed today's progess notes are not available at the moment. Arelis stated to fax yesterday's progress notes from ICU and today's labs. [address] Ma and he informed me that family wants to proceed with the transfer. Todays progress notes are not available at this time. I informed Dr. Ma [facility] is requesting today's progress notes. He stated it will be available in an hour. 830 received call from Arelis at [facility] that she spoke to bedside nurse and Dr. Ma was present there and Dr. Ma informed her that pt is DNR. Arelis stated Dr. Ma to check with the family if they want to proceed with the transfer and agree on doing invasive procedure before she present the case to her ICU team. She also wants me to fax progress notes and labs from today.
--- NOTE | 2024-11-14 09:48 | ESPR_ITS ---
Documentation for date of: 11/14/24 Subjective Subjective Interval history: Informant daughter Ms. Harris is a 88-year-old [place] female with past medical history of g astric cancer status post partial gastrectomy on sunitinib malate (following with [facility] oncology), failure to thrive-s/p feeding tube, pancytopenia, chronic macrocytic anemia, paroxysmal A-fib (not on anticoagulation) and history of GI bleed presented to the emergency department yesterday complaining of fever and weakness and low oxygen saturation. Patient noted to be hypotensive. IV fluids were given in the emergency department. In the ER blood pressure was 70/35, heart rate 119 max temp was 101. Labs showed hemoglobin 8.5, platelets 50, sodium 149, BUN 45, creatinine 2.5, glucose 69, elevated LFTs. Pro-Alex 6.99. Flu and COVID-negative. Chest x-ray showed pneumonia. EKG sinus tach. Patient was given 2 L of fluid bolus, antibiotics Zosyn and doxycycline were initiated and subsequently transferred to telemetry. Patient currently seen in ICU on telemetry status. Renal consultation requested for worsening renal function. Home medications included allopurinol, sunitinib. 11/10/2024 patient currently seen in ICU. Resting comfortably. Alert and awake. Had a GI bleed and was transferred to ICU yesterday. Currently she seems to be stable. Not on any pressors. Blood pressure 129/99, heart rate 81. Hemoglobin 12.1, platelets 119. Sodium 149, potassium 3.6, BUN 38, creatinine 1.4, glucose 62, calcium 8, magnesium 2. Spoke to ICU team-start patient on D5W p.o. for hypoglycemia and hypernatremia. Currently on antibiotics. 11/11/2024 patient currently seen in medical floor. Moved out of ICU. Resting comfortably. Alert and awake. Blood sugar 92. Blood pressure 130/60, heart rate 80. Urine output seems to be acceptable. Edema seems to be better. Still having some shortness of breath. WBC 2.6, hemoglobin 11.2, platelets 74. Sodium 142, potassium 3.1, BUN 30, creatinine 1.2, calcium 7.7, phosphorus 2.6, magnesium 1.8. Electrolytes are all replaced. 11/14/2024 patient currently seen in ICU. Profuse GI bleed-receiving blood transfusions. Dr. Ledesma on the case. Unable to stop the bleeding. Patient will be transferred to [facility] where she had her gastric cancer treated.. Labs, medications have been reviewed. Replace electrolytes. Plan of care discussed with ICU team. Review of Systems Review of Systems Narrative Review of Systems: Intubated, sedated Exam Vital Signs Temp Pulse Resp BP Pulse Ox O2 Del Method O2 Flow Rate 36.6 C 87 22 H 100/50 L 97 Room Air 1 11/14/24 04:00 11/14/24 07:00 11/14/24 06:12 11/14/24 07:00 11/14/24 07:00 11/13/24 08:00 11/14/24 01:13 FiO2 30 11/14/24 06:12 Narrative Exam GENERAL APPEARANCE: Elderly lady currently seen in ICU. On the vent. CARDIOVASCULAR: Heart regular, no murmurs LUNGS/CHEST: Chest clear to auscultation. No rales, rhonchi, wheezing ABDOMEN: Soft, nontender, nondistended. No masses. Normal bowel sounds. Patient has a feeding tube EXTREMITIES: 2+ edema in the upper extremities SKIN: Skin exam normal without any rashes MUSCULOSKELETAL: In bed NEUROLOGICAL : intubated, sedated Objective Labs 11/15/24 18:45 11/15/24 05:21 Labs: Laboratory Results - last 24 hr 11/13/24 11/13/24 11/13/24 10:21 12:55 15:02 WBC 2.0 L 1.7 L RBC 3.38 L 2.44 L Hgb 11.4 L 8.3 L D Hct 34.6 L 25.0 L MCV 102 H 103 H MCH 33.7 34.0 MCHC 32.9 33.2 RDW Std Deviation 91.8 H 90.1 H Plt Count 75 L 58 L D Neut % (Auto) 58 69 Lymph % (Auto) 33 24 [place] % (Auto) 8 6 Eos % (Auto) 1 1 Baso % (Auto) 0 0 Neut # (Auto) 1.2 L 1.2 L Lymph # (Auto) 0.7 L 0.4 L [place] # (Auto) 0.2 0.1 Eos # (Auto) 0.0 0.0 Baso # (Auto) 0.0 0.0 Immature Gran # (Auto) 0.01 H 0.01 H Absolute Nucleated RBC 0.48 H 0.35 H Immature Gran % 1 H 1 H Nucleated RBC % 24 H 21 H Smear Path Review PT 13.6 H INR 1.3 Puncture Site Right Radial ABG pH 7.38 ABG pCO2 41 ABG pO2 96 ABG HCO3 24 ABG O2 Saturation 98 ABG Base Excess -1 FiO2 50 Sodium Potassium Chloride Carbon Dioxide Anion Gap BUN Creatinine Estim Creat Clear Calc eGFR BUN/Creatinine Ratio Glucose Calculated Osmolality Lactic Acid 3.1 H Calcium Corrected Calcium Phosphorus Albumin Misc Test Result Platelets confirmed Platelets confirmed Blood Type A Positive Antibody Screen NEGATIVE Crossmatch See Detail Blood Bank Wristband ID Yes Blood Bank Comment PLATP Ready 11/13/24 11/14/24 11/14/24 16:17 01:25 05:13 WBC 0.6 L* D RBC 2.99 L Hgb 9.2 L Hct 27.0 L MCV 90 MCH 30.8 MCHC 34.1 RDW Std Deviation 53.5 H Plt Count 101 L D Neut % (Auto) 35 L Lymph % (Auto) 60 H [place] % (Auto) 2 Eos % (Auto) 2 Baso % (Auto) 2 Neut # (Auto) 0.2 L Lymph # (Auto) 0.4 L [place] # (Auto) 0.0 Eos # (Auto) 0.0 Baso # (Auto) 0.0 Immature Gran # (Auto) 0.00 Absolute Nucleated RBC 0.11 H Immature Gran % 0 Nucleated RBC % 18 H Smear Path Review Sent to Pathologist PT INR Puncture Site Arterial Line ABG pH 7.25 L D ABG pCO2 53 H D ABG pO2 83 ABG HCO3 23 ABG O2 Saturation 96 ABG Base Excess -4 L FiO2 30 Sodium Potassium Chloride Carbon Dioxide Anion Gap BUN Creatinine Estim Creat Clear Calc eGFR BUN/Creatinine Ratio Glucose Calculated Osmolality Lactic Acid 2.2 H 3.4 H Calcium Corrected Calcium Phosphorus Albumin Misc Test Result Blood Type Antibody Screen Crossmatch Blood Bank Wristband ID Blood Bank Comment 11/14/24 11/14/24 11/14/24 06:00 07:53 09:05 WBC 0.7 L* RBC 2.86 L Hgb 8.7 L Hct 26.2 L MCV 92 MCH 30.4 MCHC 33.2 RDW Std Deviation 56.1 H Plt Count 111 L Neut % (Auto) 46 Lymph % (Auto) 46 [place] % (Auto) 7 Eos % (Auto) 1 Baso % (Auto) 0 Neut # (Auto) 0.3 L Lymph # (Auto) 0.3 L [place] # (Auto) 0.1 Eos # (Auto) 0.0 Baso # (Auto) 0.0 Immature Gran # (Auto) 0.00 Absolute Nucleated RBC 0.09 H Immature Gran % 0 Nucleated RBC % 13 H Smear Path Review PT INR Puncture Site Arterial Line ABG pH 7.24 L ABG pCO2 56 H ABG pO2 75 L ABG HCO3 24 ABG O2 Saturation 96 ABG Base Excess -4 L FiO2 30 Sodium 139 Potassium 4.4 Chloride 107 Carbon Dioxide 23.1 Anion Gap 9 BUN 41 H Creatinine 1.4 H Estim Creat Clear Calc 19.3 L eGFR 36 L BUN/Creatinine Ratio 29 H Glucose 79 Calculated Osmolality 286 Lactic Acid 3.8 H 3.7 H Calcium 7.8 L Corrected Calcium 9.5 Phosphorus 5.2 H Albumin 1.9 L Misc Test Result Blood Type Antibody Screen Crossmatch Blood Bank Wristband ID Blood Bank Comment ABG Interpretation ABG results: 11/13/24 11/14/24 11/14/24 15:02 05:13 07:53 ABG pH 7.38 7.25 L D 7.24 L ABG pCO2 41 53 H D 56 H ABG pO2 96 83 75 L ABG HCO3 24 23 24 ABG O2 Saturation 98 96 96 ABG Base Excess -1 -4 L -4 L Assessment & Plan Assessment and plan (1) Acute renal failure (ARF): Status: Acute (2) Hypernatremia: Status: Acute (3) Septic shock: Status: Acute (4) Atrial fibrillation with RVR: Status: Acute (5) Thrombocytopenia: Status: Acute (6) Acute GI bleeding: Status: Acute (7) Hypotension: Status: Acute Additional Assessment & Plan Additional Plan: (1) Acute renal failure (ARF): Status: Acute Assessment and plan: Acute renal failure secondary to prerenal azotemia. Creatinine trending down with IV fluids. Blood pressure low . On pressors. Monitor hemoglobin posttransfusion. Dr. Ledesma was consulted for GI bleed. Status post endoscopy == unable to stop the bleeding ontinue with fluid resuscitation, packed red blood cells. Patient will be transferred to [facility] (2) Hypernatremia: Status: Acute Assessment and plan: Sodium markedly improved to 138. Replace electrolytes. (3) Septic shock: Status: Acute Assessment and plan: Broad-spectrum antibiotics, fluids Shock seems to be resolved (4) Atrial fibrillation with RVR: Status: Acute Assessment and plan: Heart rate currently 80 (5) Thrombocytopenia: Status: Acute Assessment and plan: Platelets 112--74 (6) Acute GI bleeding: Status: Acute Assessment and plan: Dr. Ledesma on the case (7) Hypotension: Status: Acute Assessment and plan: Currently on pressors. Blood loss anemia. Procedures Arterial Line Size (Gauge): 18
[2024-11-14 09:50] LABS: Basophils % (Auto) 0 % (0-2.5); Eosinophils % (Auto) 1 % (0-10); Hematocrit 25.8 % (36.0-46.0); Immature Granulocytes % (Auto) 0 % (0-0); Lymphocytes # (Auto) 0.4 Thou/mm3 (1.0-4.8); Lymphocytes % (Auto) 45 % (10-50); Mean Corpuscular HGB Conc 32.9 g/dl (31.0-37.0); Mean Corpuscular Hemoglobin 30.4 pg (25.0-35.0); Mean Corpuscular Volume 92 fL (80-100); Monocytes # (Auto) 0.1 Thou/mm3 (0.0-0.8); Monocytes % (Auto) 7 % (0-12); Neutrophils # (Auto) 0.4 Thou/mm3 (1.8-7.7); Neutrophils % (Auto) 47 % (37-80); Nucleated Red Blood Cell # 0.08 Thou/mm3 (0.00-0.00); Nucleated Red Blood Cell % 9 /100 WBC (0); Platelet Count 102 Thou/mm3 (140-440); RDW Standard Deviation 57.1 fL (36.4-46.3)
[2024-11-14 09:57] LABS: Hemoglobin 8.5 g/dL (12.0-16.0); White Blood Count 0.9 Thou/mm3 (3.6-11.0)
--- NOTE | 2024-11-14 10:26 | PD.RESPRO ---
Documentation for date of: 11/14/24 Subjective Subjective Interval history: Stefani Harris is an 88-year-old Tagalog-speaking female with a PMHx of gastric cancer s/p partial gastrectomy on sunitinib malate (following [facility] oncology), chronic macrocytic anemia, GI bleed, FTT, paroxysmal A-fib (no AC) presented on evening of 11/08 for acute blood loss anemia secondary to anastomotic leak from gastric surgery (2008). Initial hemoglobin 8.5, hematocrit 27.9, MCV 123, platelets 50K, Cr 2.5, lactate 5.6, Pro-Alex 6.9. During hospital course, patient had dark-colored BMs and FOBT positive. GI, Dr. Ledesma, consulted and EGD done on 11/09 showed esophagitis, significant blood at anastomotic site, and G-tube could not be visualized. Received 2 units PRBC and 1 unit platelets and transferred to ICU. Repeat H&H showed improvement in hemoglobin from 6.7 to 12.3 and platelets from 43 to 119. Downgraded to floors and given IVF for WILLIE. On 11/13 at 10 AM, RR called for hemoptysis of 400 to 500 cc of blood and 100 cc suctioned out from G-tube. Initial vitals showed SBP at 141, HR 110, O2 92%. Repeat vitals showed SBP 90. Transfused 2 PRBCs, 1 unit FFP, infused tranexamic acid 1 g x2. Intubated for airway protection and sedated on fentanyl and propofol drips. BP decreased to 58/46 and started on Levophed and vasopressin drips. Upgraded to ICU on 11/13 for further management. 11/14: Seen and examined at bedside in ICU. No acute overnight events reported. No UOP, however bladder scan showed ~330 cc urine and will place Melissa today. ABG in AM showed pH 7.25, pCO2 53, and pO2 83 and so RR increased from 22 to 25 and Vt increased from 250 to 310 based off 8 ml/kg. Will follow-up repeat ABG. Otherwise, hold on Sunitinib as may be exacerbating/causing patient's UGIB due to side-effects. Sedated on fentanyl only and pressors taken off around midnight. Exam Vital Signs Temp Pulse Resp BP Pulse Ox O2 Del Method O2 Flow Rate 97.9 F 87 22 H 100/50 L 97 Room Air 1 11/14/24 04:00 11/14/24 07:00 11/14/24 06:12 11/14/24 07:00 11/14/24 07:00 11/13/24 08:00 11/14/24 01:13 FiO2 30 11/14/24 06:12 Narrative Exam General: intubated, sedated, and mechanically ventilatd HEENT: NG and ET tubes in place with blood noted in lumens; blood noted around oral mucosa Cardiovascular: regular rate and rhythm, S1/S2 present, no murmurs appreciated Pulmonary: clear to auscultation bilaterally, no rales/rhonchi/wheezes Abdominal: soft, non-tender, non-distended, no rebound/guarding, normal bowel sounds present Musculoskeletal: 2+ pitting edema in lower extremities bilaterally Skin: warm and dry, intact, no rashes Neuro: GCS 3T Objective Labs 11/16/24 07:24 11/16/24 02:52 Labs: Laboratory Results - last 24 hr 11/13/24 11/13/24 11/13/24 10:21 12:55 15:02 WBC 2.0 L 1.7 L RBC 3.38 L 2.44 L Hgb 11.4 L 8.3 L D Hct 34.6 L 25.0 L MCV 102 H 103 H MCH 33.7 34.0 MCHC 32.9 33.2 RDW Std Deviation 91.8 H 90.1 H Plt Count 75 L 58 L D Neut % (Auto) 58 69 Lymph % (Auto) 33 24 [place] % (Auto) 8 6 Eos % (Auto) 1 1 Baso % (Auto) 0 0 Neut # (Auto) 1.2 L 1.2 L Lymph # (Auto) 0.7 L 0.4 L Becker # (Auto) 0.2 0.1 Eos # (Auto) 0.0 0.0 Baso # (Auto) 0.0 0.0 Immature Gran # (Auto) 0.01 H 0.01 H Absolute Nucleated RBC 0.48 H 0.35 H Immature Gran % 1 H 1 H Nucleated RBC % 24 H 21 H Smear Path Review PT 13.6 H INR 1.3 Puncture Site Right Radial ABG pH 7.38 ABG pCO2 41 ABG pO2 96 ABG HCO3 24 ABG O2 Saturation 98 ABG Base Excess -1 FiO2 50 Sodium Potassium Chloride Carbon Dioxide Anion Gap BUN Creatinine Estim Creat Clear Calc eGFR BUN/Creatinine Ratio Glucose Calculated Osmolality Lactic Acid 3.1 H Calcium Corrected Calcium Phosphorus Albumin Misc Test Result Platelets confirmed Platelets confirmed Blood Type A Positive Antibody Screen NEGATIVE Crossmatch See Detail Blood Bank Wristband ID Yes Blood Bank Comment PLATP Ready 11/13/24 11/14/24 11/14/24 16:17 01:25 05:13 WBC 0.6 L* D RBC 2.99 L Hgb 9.2 L Hct 27.0 L MCV 90 MCH 30.8 MCHC 34.1 RDW Std Deviation 53.5 H Plt Count 101 L D Neut % (Auto) 35 L Lymph % (Auto) 60 H [place] % (Auto) 2 Eos % (Auto) 2 Baso % (Auto) 2 Neut # (Auto) 0.2 L Lymph # (Auto) 0.4 L [place] # (Auto) 0.0 Eos # (Auto) 0.0 Baso # (Auto) 0.0 Immature Gran # (Auto) 0.00 Absolute Nucleated RBC 0.11 H Immature Gran % 0 Nucleated RBC % 18 H Smear Path Review Sent to Pathologist PT INR Puncture Site Arterial Line ABG pH 7.25 L D ABG pCO2 53 H D ABG pO2 83 ABG HCO3 23 ABG O2 Saturation 96 ABG Base Excess -4 L FiO2 30 Sodium Potassium Chloride Carbon Dioxide Anion Gap BUN Creatinine Estim Creat Clear Calc eGFR BUN/Creatinine Ratio Glucose Calculated Osmolality Lactic Acid 2.2 H 3.4 H Calcium Corrected Calcium Phosphorus Albumin Misc Test Result Blood Type Antibody Screen Crossmatch Blood Bank Wristband ID Blood Bank Comment 11/14/24 11/14/24 11/14/24 06:00 07:53 09:05 WBC 0.7 L* RBC 2.86 L Hgb 8.7 L Hct 26.2 L MCV 92 MCH 30.4 MCHC 33.2 RDW Std Deviation 56.1 H Plt Count 111 L Neut % (Auto) 46 Lymph % (Auto) 46 Becker % (Auto) 7 Eos % (Auto) 1 Baso % (Auto) 0 Neut # (Auto) 0.3 L Lymph # (Auto) 0.3 L Becker # (Auto) 0.1 Eos # (Auto) 0.0 Baso # (Auto) 0.0 Immature Gran # (Auto) 0.00 Absolute Nucleated RBC 0.09 H Immature Gran % 0 Nucleated RBC % 13 H Smear Path Review PT INR Puncture Site Arterial Line ABG pH 7.24 L ABG pCO2 56 H ABG pO2 75 L ABG HCO3 24 ABG O2 Saturation 96 ABG Base Excess -4 L FiO2 30 Sodium 139 Potassium 4.4 Chloride 107 Carbon Dioxide 23.1 Anion Gap 9 BUN 41 H Creatinine 1.4 H Estim Creat Clear Calc 19.3 L eGFR 36 L BUN/Creatinine Ratio 29 H Glucose 79 Calculated Osmolality 286 Lactic Acid 3.8 H 3.7 H Calcium 7.8 L Corrected Calcium 9.5 Phosphorus 5.2 H Albumin 1.9 L Misc Test Result Blood Type Antibody Screen Crosssctch Blood Bank [facility] ID Blood Bank Comment 11/14/24 09:25 WBC 0.9 L* RBC 2.80 L Hgb 8.5 L Hct 25.8 L MCV 92 MCH 30.4 MCHC 32.9 RDW Std Deviation 57.1 H Plt Count 102 L Neut % (Auto) 47 Lymph % (Auto) 45 Becker % (Auto) 7 Eos % (Auto) 1 Baso % (Auto) 0 Neut # (Auto) 0.4 L Lymph # (Auto) 0.4 L Becker # (Auto) 0.1 Eos # (Auto) 0.0 Baso # (Auto) 0.0 Immature Gran # (Auto) 0.00 Absolute Nucleated RBC 0.08 H Immature Gran % 0 Nucleated RBC % 9 H Smear Path Review PT INR Puncture Site ABG pH ABG pCO2 ABG pO2 ABG HCO3 ABG O2 Saturation ABG Base Excess FiO2 Sodium Potassium Chloride Carbon Dioxide Anion Gap BUN Creatinine Estim Creat Clear Calc eGFR BUN/Creatinine Ratio Glucose Calculated Osmolality Lactic Acid Calcium Corrected Calcium Phosphorus Albumin Misc Test Result Blood Type Antibody Screen Crosssctch Blood Bank [facility] Blood Bank Comment ABG Interpretation ABG results: 11/13/24 11/14/24 11/14/24 15:02 05:13 07:53 ABG pH 7.38 7.25 L D 7.24 L ABG pCO2 41 53 H D 56 H ABG pO2 96 83 75 L ABG HCO3 24 23 24 ABG O2 Saturation 98 96 96 ABG Base Excess -1 -4 L -4 L Quality Measures Quality Measures VTE prophylaxis (SCDs) Advance care planning discussed with:: child Assessment & Plan Assessment Current Active Medications: Generic Name Dose Route Start Last Admin Trade Name Freq PRN Reason Stop Dose Admin Acetaminophen 650 mg 11/09/24 08:42 Acetaminophen 325 Mg Tablet PO 12/09/24 01:01 Q6H PRN Fever >100 Albuterol 2.5 mg 11/13/24 15:00 11/14/24 06:12 Albuterol Rt 2.5 Mg/0.5 Ml Nebu INH 12/13/24 14:59 2.5 mg Q4HRRT LAKESHA Administration Allopurinol 100 mg 11/09/24 14:00 11/09/24 14:04 Allopurinol 100 Mg Tablet PO 12/09/24 13:59 Not Given DAILY LAKESHA Sunitinib Malate 25 0 ea 11/11/24 09:30 11/13/24 09:08 Mg Capsules PO 12/11/24 09:29 1 capsule DAILY LAKESHA Administration Folic Acid 1 mg 11/12/24 09:15 11/13/24 09:08 Folic Acid 1 Mg Tablet GT 12/09/24 08:59 1 mg QDAY LAKESHA Administration Octreotide Acetate 1,000 mcg/ 102 mls @ 5.1 mls/hr 11/13/24 11:05 11/14/24 08:39 Sodium Chloride IV 11/18/24 11:05 50 mcg/hr .Q20H LAKESHA 5.1 mls/hr Administration Protocol 50 MCG/HR Norepinephrine/Dextrose 8 mg in 250 mls @ 4.635 mls/hr 11/13/24 11:55 11/14/24 04:00 Levophed In D5w 8mg/250ml IV 12/13/24 11:54 0 mcg/kg/min .Q24H PRN 0 mls/hr PER PROTOCOL Titration Protocol 0.05 MCG/KG/MIN Vasopressin/Sodium Chloride 20 unit in 100 mls @ 9 mls/hr 11/13/24 13:27 11/13/24 18:00 Vasostrict/Ns Ivpb IV 12/13/24 13:26 0 unit/min .Q11H7M PRN 0 mls/hr PER PROTOCOL Titration Protocol 0.03 UNIT/MIN Fentanyl Citrate 2,500 mcg in 250 mls @ 2.5 mls/hr 11/13/24 13:39 11/14/24 08:00 Sublimaze Inj 2,500 Mcg/250 Ml Bag IV 11/18/24 13:38 150 mcg/hr .Q24H PRN 15 mls/hr PER PROTOCOL Titration Protocol 25 MCG/HR Propofol 1,000 mg in 100 mls @ 1.483 mls/hr 11/13/24 13:39 11/13/24 13:10 Diprivan Ivpb IV 12/13/24 13:38 0 mcg/kg/min .Q24H PRN 0 mls/hr PER PROTOCOL Titration Protocol 5 MCG/KG/MIN Pantoprazole Sodium 80 mg in 100 mls @ 10 mls/hr 11/14/24 08:30 11/14/24 08:41 Protonix/Ns 80mg Iv Premix IV 11/16/24 20:29 10 mls/hr Q10H LAKESHA Administration Vitamin B Complex/Vit C/Folic Acid 1 tab 11/09/24 09:00 11/13/24 09:08 Vit B12/Vit C/Fa (Nephrovite) Tablet PO 12/09/24 08:59 1 tab QDAY LAKESHA Administration Plan Stefani Harris is an 88-year-old Tagalog-speaking female with a PMHx of gastric cancer s/p partial gastrectomy on sunitinib malate (following [facility] oncology), chronic macrocytic anemia, GI bleed, FTT, paroxysmal A-fib (no AC) presented on evening of 11/08 for acute blood loss anemia secondary to anastomotic leak from gastric surgery (2008). Initial hemoglobin 8.5, hematocrit 27.9, MCV 123, platelets 50K, Cr 2.5, lactate 5.6, Pro-Alex 6.9. During hospital course, patient had dark-colored BMs and FOBT positive. GI, Dr. Ledesma, consulted and EGD done on 11/09 showed esophagitis, significant blood at anastomotic site, and G-tube could not be visualized. Received 2 units PRBC and 1 unit platelets and transferred to ICU. Repeat H&H showed improvement in hemoglobin from 6.7 to 12.3 and platelets from 43 to 119. Downgraded to floors and given IVF for WILLIE. On 11/13 at 10 AM, RR called for hemoptysis of 400 to 500 cc of blood and 100 cc suctioned out from G-tube. Initial vitals showed SBP at 141, HR 110, O2 92%. Repeat vitals showed SBP 90. Transfused 2 PRBCs, 1 unit FFP, infused tranexamic acid 1 g x2. Intubated for airway protection and sedated on fentanyl and propofol drips. BP decreased to 58/46 and started on Levophed and vasopressin drips. Upgraded to ICU on 11/13 for further management. Neurological #Sedated, on fentanyl ? RASS goal of -4 Cardiovascular #Shock, hypovolemic secondary to upper GI bleed Initial hemoglobin 8.5 that downtrended to 6.7 and received 2 units PRBC and 1 unit platelet. Repeat CBC showed hemoglobin 12.3. Repeat hemoglobin after RR 8.3 and receiving additional 2 units PRBC and 1 unit FFP. Repeat CBC showed hemoglobin stable at 8.5. Blood products: 6 units pRBC, 2 unit platelet, 2 unit FFP Status post 1 g tranexamic acid x 2 ? Levophed and vasopressin drips PRN ? 11/14 off since midnight #Paroxysmal A-fib ? K > 4, Mg > 2 ? Hold all AC given upper GI bleed Pulmonary #Intubated and mechanically ventilated due to inability to protect airway ? Vent settings: VT 250, RR 20, PEEP 5, FiO2 30% changed to VT 310 and RR 25 ? Folow-up ABG after vent settings change Gastrointestinal #Upper GI bleed #Gastric cancer s/p partial gastrectomy on Sunitinib malate See cardiovascular above for additional details. ? GI recommends no EGD at this time -> transfer to tertiary center for possible gastroduodenal embolization ? Follow-up CTA abdomen pelvis with contrast ? Continue pantoprazole and octrotide drips (-11/18) ? Continue transfer process to tertiary center ? Surgery consulted, appreciate recommendations ? No chemical anticoagulation -> SCDs for DVT prophylaxis Renal #WILLIE, likely prerenal Cr on admission 2.0 in setting of acute blood loss anemia. Cr improved after IVF. Cr noted to increase from 1.2 to 1.4 after rapid response. ? 500 cc LR #Lactic acidosis, in setting of shock ? Trend lactic acid Endocrine No acute/active disease Heme/onc #Acute blood loss anemia Status post 4 units PRBC, 1 unit platelet, 1 unit FFP ? See cardiovascular above #Thrombocytopenia #Leukopenia In setting of Sunitinib for history of gastric cancer. ? Status posttransfusion 1 unit platelet ? Hold Sunitinib #History of microcytic anemia ? Folate 1 mg daily, received B12 injection Infectious disease No acute/active disease Hospital management: Disposition: critically ill in ICU, pending transfer to [facility] Drips: fentanyl, protonix, octreotide Fluids: none Diet: NPO Lines: PIV, ET tube, NG tube DVT prophylaxis: SCDs GI prophylaxis: pantoprazole and octreotide Melissa: placed 11/14 CODE STATUS: DNR ----- Plan discussed with attending physician Dr. Corrine Leal MD PGY-1 Internal Medicine Attending Provider Attestation/Addendum Patient seen and examined with above resident, Rodolfo Leal MD. I agree with the findings, assessment, and plan of care as documented except for any differences below. Patient continues to slowly improve from a hemodynamic perspective. Gas exchange remains adequate with adjustments for lung protective strategy by residents overnight and remain appropriate based on peak/plateau pressures this morning. Gas exchange and acid-base optimized. Patient continues to receive intermittent blood products and we will also check fibrinogen along with DIC panel to ensure that all blood product components are appropriately delivered. Patient did have significant bleeding again later today requiring additional blood products and optimization of coagulation. She remains warm and well-perfused with minimal intermittent pressor requirements I will continue on vasopressin at the very least in the interim. Protonix was switched from drip to twice daily dosing. And plan for octreotide for 5 days of his limited utility given the sources of her underlying gastric cancer. Patient remains on Sutent, and this may be playing a role in her hemorrhage based on its effect on angiogenesis as well as underlying tumor burden. Will discontinue with may be complicating her risk profile for bleeding further. Notably she has remained off of her home dose of Eliquis since the start of hospitalization and blood profusely despite this being discontinued. Patient with recurrence of bleeding is an ideal candidate for transfer to a tertiary facility, residents have been working with transfer of care center to find a receiving unit where IR and advanced endoscopy are available should the patient have significant bleeding warranting gastric artery embolization. Patient's family continues to be hopeful but has been agreeable to transition the patient to DNR. They would still like to pursue transfer to a tertiary center. We are awaiting response from [facility] where her cancer treatment has been historically. Total critical care time: I personally spent 40 minutes for review of physiologic parameters, directing plan of care throughout the day, coordination of care with other subspecialists, and counseling patient's family at bedside. This is exclusive of time spent teaching housestaff or performing any separate billable procedures. Patient continues to require critical care services for hemorrhagic shock secondary to upper GI bleed from gastric cancer and acute hypoxic respiratory failure likely secondary to aspiration. Patient remains at high risk for further morbidity mortality warranting close monitoring and care only available in the intensive care unit.
[2024-11-14] MEDS: RINGERS LACTATED 1000 ML 500 ML 999 ML IV (11:36)
[2024-11-14 11:48] LABS: Base Excess -4 (-3-3); HCO3 22 mEq/L (20-26); Inspired Oxygen, FIO2 30 %; O2 Saturation 97 % (91-98); PCO2 43 mmHg (32.0-48.0); PO2 76 mmHg (83-108); pH, Arterial 7.32 (7.35-7.45)
[2024-11-14 11:52] LABS: Allen Test Not Performed; Puncture Site Arterial Line
[2024-11-14] MEDS: CALCIUM GLUC/NS 1000MG IVPB 1,000 MG/50 ML BAG 50 MG IV (12:00)
[2024-11-14 12:23] LABS: Reflex Lactate? Y
[2024-11-14 12:38] LABS: Basophils % (Auto) 0 % (0-2.5); Eosinophils % (Auto) 1 % (0-10); Hematocrit 20.8 % (36.0-46.0); Immature Granulocytes % (Auto) 0 % (0-0); Lymphocytes # (Auto) 0.4 Thou/mm3 (1.0-4.8); Lymphocytes % (Auto) 49 % (10-50); Mean Corpuscular HGB Conc 33.2 g/dl (31.0-37.0); Mean Corpuscular Hemoglobin 30.8 pg (25.0-35.0); Mean Corpuscular Volume 93 fL (80-100); Monocytes # (Auto) 0.1 Thou/mm3 (0.0-0.8); Monocytes % (Auto) 11 % (0-12); Neutrophils # (Auto) 0.3 Thou/mm3 (1.8-7.7); Neutrophils % (Auto) 38 % (37-80); Nucleated Red Blood Cell # 0.04 Thou/mm3 (0.00-0.00); Nucleated Red Blood Cell % 5 /100 WBC (0); Platelet Count 88 Thou/mm3 (140-440); RDW Standard Deviation 56.3 fL (36.4-46.3); Red Blood Count 2.24 Miln/mm3 (4.00-5.20)
[2024-11-14 12:44] LABS: INR 1.4 (0.9-1.3); Lactic Acid, 3 HR 5.8 mMol/L (0.4-2.0); Partial Thromboplastin Time 42.9 Seconds (22.0-36.0); Prothrombin Time 15.1 Seconds (9.0-12.2)
--- NOTE | 2024-11-14 13:06 | XR_ITS ---
Examination: AP chest single view Technique one AP portable supine chest single view Exam date and time: November 14, 2024 1314 hrs. Comparison November 13, 2024 Indications: Post central line placement Findings: Right internal jugular central line tip SVC satisfactory position Endotracheal tube tip approximately 9 cm above ana maría Prominent heart failure with enlargement cardiac contour, prominent vascular congestion and perihilar edema Consider superimposed bilateral pneumonia Bilateral significant pleural effusions Prominent osteopenia Orogastric tube is in the stomach, the tip is below the level of the film Impression: Prominent CHF Extensive edema and likely pneumonia throughout both lungs Interval right internal jugular central line tip SVC satisfactory position, no pneumothorax
[2024-11-14] MEDS: fentaNYL 2,500 MCG/250 ML BAG 2,500 MCG/250 ML BAG 25 MCG IV (13:20)
[2024-11-14 13:27] LABS: Hemoglobin 6.9 g/dL (12.0-16.0); White Blood Count 0.9 Thou/mm3 (3.6-11.0)
[2024-11-14] MEDS: PROPOFOL 1,000 MG IVPB 1,000 MG/100 ML VIAL 1.483 MG IV (13:31)
[2024-11-14 13:58] LABS: D-Dimer 1100 ng/mL (<600)
[2024-11-14] MEDS: VASOPRESSIN IN NS IVPB 20 UNIT/100 ML BAG 9 UNIT IV ×2 (14:00→23:29)
[2024-11-14] MEDS: ALBUMIN HUMAN 25% IVPB 25 GM/100 ML BTL IV (14:15)
[2024-11-14 14:26] LABS: Fibrinogen 92 mg/dL (175-375)
--- NOTE | 2024-11-14 18:28 | PD.IMPROG ---
Documentation for date of: 11/14/24 Subjective Subjective Interval history: Patient evaluated in the ICU Hemoglobin hematocrit dropped from 8.5 and 25.6-6.9 and 20.8 Patient has been accepted at [facility] waiting for bed and transfer Exam Vital Signs Temp Pulse Resp BP Pulse Ox O2 Del Method O2 Flow Rate 98.6 F 76 22 H 147/80 H 96 Room Air 1 11/14/24 16:20 11/14/24 18:17 11/14/24 18:15 11/14/24 18:15 11/14/24 18:15 11/13/24 08:00 11/14/24 01:13 FiO2 30 11/14/24 18:12 Objective Labs 11/14/24 12:05 11/14/24 06:00 Labs: Laboratory Results - last 24 hr 11/13/24 11/14/24 11/14/24 10:21 01:25 05:13 WBC 0.6 L* D RBC 2.99 L Hgb 9.2 L Hct 27.0 L MCV 90 MCH 30.8 MCHC 34.1 RDW Std Deviation 53.5 H Plt Count 101 L D Neut % (Auto) 35 L Lymph % (Auto) 60 H [place] % (Auto) 2 Eos % (Auto) 2 Baso % (Auto) 2 Neut # (Auto) 0.2 L Lymph # (Auto) 0.4 L [place] # (Auto) 0.0 Eos # (Auto) 0.0 Baso # (Auto) 0.0 Immature Gran # (Auto) 0.00 Absolute Nucleated RBC 0.11 H Immature Gran % 0 Nucleated RBC % 18 H Smear Path Review Sent to Pathologist PT INR APTT Fibrinogen D-Dimer Puncture Site Arterial Line ABG pH 7.25 L D ABG pCO2 53 H D ABG pO2 83 ABG HCO3 23 ABG O2 Saturation 96 ABG Base Excess -4 L FiO2 30 Sodium Potassium Chloride Carbon Dioxide Anion Gap BUN Creatinine Estim Creat Clear Calc eGFR BUN/Creatinine Ratio Glucose Calculated Osmolality Lactic Acid 3.4 H Calcium Corrected Calcium Phosphorus Albumin Blood Type A Positive Antibody Screen NEGATIVE Crossmatch See Detail Blood Bank Wristband ID Yes Blood Bank Comment PLATP Ready 11/14/24 11/14/24 11/14/24 06:00 07:53 09:05 WBC 0.7 L* RBC 2.86 L Hgb 8.7 L Hct 26.2 L MCV 92 MCH 30.4 MCHC 33.2 RDW Std Deviation 56.1 H Plt Count 111 L Neut % (Auto) 46 Lymph % (Auto) 46 [place] % (Auto) 7 Eos % (Auto) 1 Baso % (Auto) 0 Neut # (Auto) 0.3 L Lymph # (Auto) 0.3 L [place] # (Auto) 0.1 Eos # (Auto) 0.0 Baso # (Auto) 0.0 Immature Gran # (Auto) 0.00 Absolute Nucleated RBC 0.09 H Immature Gran % 0 Nucleated RBC % 13 H Smear Path Review PT INR APTT Fibrinogen D-Dimer Puncture Site Arterial Line ABG pH 7.24 L ABG pCO2 56 H ABG pO2 75 L ABG HCO3 24 ABG O2 Saturation 96 ABG Base Excess -4 L FiO2 30 Sodium 139 Potassium 4.4 Chloride 107 Carbon Dioxide 23.1 Anion Gap 9 BUN 41 H Creatinine 1.4 H Estim Creat Clear Calc 19.3 L eGFR 36 L BUN/Creatinine Ratio 29 H Glucose 79 Calculated Osmolality 286 Lactic Acid 3.8 H 3.7 H Calcium 7.8 L Corrected Calcium 9.5 Phosphorus 5.2 H Albumin 1.9 L Blood Type Antibody Screen Crossmatch Blood Bank Wristband ID Blood Bank Comment 11/14/24 11/14/24 11/14/24 09:25 11:30 12:05 WBC 0.9 L* 0.9 L* RBC 2.80 L 2.24 L Hgb 8.5 L 6.9 L* Hct 25.8 L 20.8 L* MCV 92 93 MCH 30.4 30.8 MCHC 32.9 33.2 RDW Std Deviation 57.1 H 56.3 H Plt Count 102 L 88 L Neut % (Auto) 47 38 Lymph % (Auto) 45 49 [place] % (Auto) 7 11 Eos % (Auto) 1 1 Baso % (Auto) 0 0 Neut # (Auto) 0.4 L 0.3 L Lymph # (Auto) 0.4 L 0.4 L [place] # (Auto) 0.1 0.1 Eos # (Auto) 0.0 0.0 Baso # (Auto) 0.0 0.0 Immature Gran # (Auto) 0.00 0.00 Absolute Nucleated RBC 0.08 H 0.04 H Immature Gran % 0 0 Nucleated RBC % 9 H 5 H Smear Path Review PT 15.1 H INR 1.4 H APTT 42.9 H Fibrinogen 92 L* D-Dimer 1100 H Puncture Site Arterial Line ABG pH 7.32 L ABG pCO2 43 D ABG pO2 76 L ABG HCO3 22 ABG O2 Saturation 97 ABG Base Excess -4 L FiO2 30 Sodium Potassium Chloride Carbon Dioxide Anion Gap BUN Creatinine Estim Creat Clear Calc eGFR BUN/Creatinine Ratio Glucose Calculated Osmolality Lactic Acid 5.8 H* Calcium Corrected Calcium Phosphorus Albumin Blood Type Antibody Screen Crossmatch Blood Bank Wristband ID Blood Bank Comment Impressions Impression: # Upper GI bleed # Posthemorrhagic anemia # Hypotension on pressor support Spoke with the internal medicine team They are in communication with [facility] accepting team ABG Interpretation ABG results: 11/13/24 11/14/24 11/14/24 15:02 05:13 07:53 ABG pH 7.38 7.25 L D 7.24 L ABG pCO2 41 53 H D 56 H ABG pO2 96 83 75 L ABG HCO3 24 23 24 ABG O2 Saturation 98 96 96 ABG Base Excess -1 -4 L -4 L 11/14/24 11:30 ABG pH 7.32 L ABG pCO2 43 D ABG pO2 76 L ABG HCO3 22 ABG O2 Saturation 97 ABG Base Excess -4 L Assessment & Plan A&P Narrative # Melena # FOBT positive # Acute posthemorrhagic anemia Plan Fiberoptic esophagogastroduodenoscopy with possible biopsy possible therapeutic intervention under intravenous moderate sedation Informed consent obtained from the electronics engineering manager and the family and this has been scheduled for today At the moment family intends to keep the PEG tube and we will reevaluate the stomach endoscopically on the inside serial CBC IV Protonix Will follow the patient Other medical problems include # Paroxysmal atrial fibrillation rate controlled not on Eliquis at this time # Gastric adenocarcinoma requiring partial gastrectomy at [facility] patient does see oncology there # Failure to thrive Thank you very much for the opportunity to participate in the care of this patient Time Spent With Patient Time: Total time spent is greater than 50% in coordination of care (as documented) at patient's floor/unit and/or counseling patient: Procedures Arterial Line Size (Gauge): 18
[2024-11-14 19:17] LABS: Hematocrit 24.9 % (36.0-46.0)
[2024-11-14 19:27] LABS: Hemoglobin 8.6 g/dL (12.0-16.0)
--- NOTE | 2024-11-14 19:29 | PD.RESPROC ---
Procedures Procedure Date / Time 11/14/241928 Procedure Narrative Procedure Narrative: Attending attestation: I was present for entire procedure. Patient tolerated procedure well with no immediate complications. Follow-up chest x-ray shows adequate placement of the tip of the catheter as well as no postprocedural pneumothorax. No significant blood loss. Arterial Line Size (Gauge): 18 Central Line Placement Right IJ: Indication(s): poor, or inadequate peripheral venous access Informed consent obtained: other (son, Irwin) Time out done, and the following verified: correct patient, side and site, procedure and patient position Patient placed on monitor/pulse ox: Yes Hand Hygiene: soap & water Max Sterile Barrier Techniques used: cap, mask, sterile gown, sterile gloves and sterile full body drape Central line prep: Chlorhexidine scrub Local anesthesia used: lidocaine 1% Amount of anesthesia used (mL): 5 Ultrasound used for placement: Yes Sterile Technique if Ultrasound used, including sterile gel: yes Central line lumen inserted: triple Post procedure: sutured in place, good blood return, all ports aspirated, flushed, capped and sterile dressing applied Post procedure x-ray: tip of catheter in good position and no pneumothorax seen Patient tolerated procedure: well EBL(ml): 5 Complications: none Procedure comment: Hands were washed prior to the procedure. I wore a surgical cap, mask, full gown and sterile gloves throughout procedure. Right neck region was prepped using chlorhexidine scrub and draped in sterile fashion using full drape and sterile probe cover and sterile gel employed. The internal jugular vein was identified using the ultrasound. Anesthesia was achieved over the vein using 1% lidocaine. Introducer needle inserted into internal juglar vein under direct ultrasound visualization. Venous blood was withdrawn. The syringe was removed and guidewire advanced into introducer needle. The guidewire was visualized in the IJV by ultrasound. A small incision was made at the skin surface with a scalpel and the introducer needle was exchanged for a dilator over the guidewire. After appropriate dilation was obtained, the dilator was exchanged over the wire for a central venous catheter. The wire was removed and the catheter was sutured in place at 15 cm. The patient tolerated the procedure without any hemodynamic compromise. At time of procedure completion, all ports aspirated and flushed properly.
[2024-11-14] MEDS: PANTOPRAZOLE INJ 40 MG VIAL IVP (21:54)
[2024-11-14 23:09] LABS: Hematocrit 28.3 % (36.0-46.0)
[2024-11-14] MEDS: fentaNYL 2,500 MCG/250 ML BAG 2,500 MCG/250 ML BAG 30 MCG IV (23:29)
[2024-11-15] VITALS (90 sets, daily range): BP systolic 94–152; BP diastolic 41–74; PULSE 51–86; RESP 20–29; TEMP 35.5–36.6; O2SAT 95–100; BMI 26.0
[2024-11-15] MEDS: DEXTROSE 50%-WATER INJ 50 ML SYRINGE IV (00:32)
[2024-11-15] MEDS: ALBUTEROL RT 2.5 MG/0.5 ML NEBU INH ×6 (02:11→22:35)
[2024-11-15 03:05] LABS: Hematocrit 29.1 % (36.0-46.0); Hemoglobin 10.3 g/dL (12.0-16.0)
[2024-11-15 04:53] LABS: Base Excess -1 (-3-3); HCO3 21 mEq/L (20-26); Inspired Oxygen, FIO2 30 %; O2 Saturation 98 % (91-98); PCO2 29 mmHg (32.0-48.0); PO2 86 mmHg (83-108); pH, Arterial 7.48 (7.35-7.45)
[2024-11-15 04:56] LABS: Allen Test Performed/OK; Puncture Site Right Radial
[2024-11-15] MEDS: OCTREOTIDE ACET INJ 1,000 MCG in SODIUM CHLORIDE 0.9% 100 ML 5.1 MCG IV (05:41)
[2024-11-15 06:14] LABS: Basophils % (Auto) 1 % (0-2.5); Eosinophils % (Auto) 1 % (0-10); Hematocrit 29.1 % (36.0-46.0); Hemoglobin 10.4 g/dL (12.0-16.0); Immature Granulocytes % (Auto) 1 % (0-0); Immature Granulocytes Auto 0.01 Thou/mm3 (0.00-0.00); Lymphocytes # (Auto) 0.4 Thou/mm3 (1.0-4.8); Lymphocytes % (Auto) 22 % (10-50); Mean Corpuscular HGB Conc 35.7 g/dl (31.0-37.0); Mean Corpuscular Hemoglobin 29.6 pg (25.0-35.0); Mean Corpuscular Volume 83 fL (80-100); Monocytes # (Auto) 0.2 Thou/mm3 (0.0-0.8); Monocytes % (Auto) 9 % (0-12); Neutrophils # (Auto) 1.2 Thou/mm3 (1.8-7.7); Neutrophils % (Auto) 68 % (37-80); Nucleated Red Blood Cell # 0.04 Thou/mm3 (0.00-0.00); Nucleated Red Blood Cell % 2 /100 WBC (0); Platelet Count 131 Thou/mm3 (140-440); RDW Standard Deviation 47.5 fL (36.4-46.3); Red Blood Count 3.51 Miln/mm3 (4.00-5.20)
[2024-11-15 06:21] LABS: White Blood Count 1.8 Thou/mm3 (3.6-11.0)
[2024-11-15 06:22] LABS: Anion Gap 11 (7-16); BUN/Creatinine Ratio 32 Ratio (12-20); Blood Urea Nitrogen 41 mg/dL (9-23); Chloride 106 mMol/L (98-107); Creatinine (Component) 1.3 mg/dL (0.6-1.3); Estimated Creatinine Clearance 20.8 mL/min (>60); Glucose 119 mg/dL (74-106); Osmolality,Calculated 286 (275-295); Phosphorous 3.4 mg/dL (2.4-5.1); Potassium 3.6 mMol/L (3.4-5.1); Sodium 138 mMol/L (136-145); eGFR 40 See Note
[2024-11-15] MEDS: fentaNYL 2,500 MCG/250 ML BAG 2,500 MCG/250 ML BAG 25 MCG IV (07:56)
[2024-11-15] MEDS: ALBUMIN HUMAN 25% IVPB 25 GM/100 ML BTL IV (08:00)
[2024-11-15] MEDS: PANTOPRAZOLE INJ 40 MG VIAL IVP ×2 (08:01→21:35)
[2024-11-15] MEDS: FOLIC ACID 1 MG TABLET GT (08:01)
[2024-11-15] MEDS: VIT B12/Vit C/FA (Nephrovite) TABLET 1 TAB PO (08:01)
[2024-11-15] MEDS: POTASSIUM CHLORIDE 10% 20 MEQ/15 ML UDC GT (08:06)
[2024-11-15 08:20] LABS: Lactate (Lactic Acid) 3.2 mMol/L (0.4-2.0)
--- NOTE | 2024-11-15 08:25 | PC.CC ---
Addendum entered by Justine Jacinto RN 11/15/24 08:35: [address] Leal that pt is accepted by [facility]o [facility]. Pending bed availability now. Addendum entered by Justine Jacinto RN 11/15/24 08:33: 0828 called [facility], spoke to Rufino for transfer update. [facility] stated pt is accepted by Alfredo [facility]. Pending bed availability now. Original Note: 823 called ICU and spoke to Dr. Leal for update on pt.
[2024-11-15 09:06] LABS: Base Excess -3 (-3-3); HCO3 22 mEq/L (20-26); Inspired Oxygen, FIO2 30 %; PCO2 36 mmHg (32.0-48.0); PO2 121 mmHg (83-108)
[2024-11-15 09:07] LABS: Allen Test Not Performed; O2 Saturation 99 % (91-98); Puncture Site Arterial Line
[2024-11-15 11:20] LABS: Reflex Lactate? Y
[2024-11-15] MEDS: VASOPRESSIN IN NS IVPB 20 UNIT/100 ML BAG 9 UNIT IV (11:47)
[2024-11-15 12:43] LABS: Base Excess, Venous -4 (-3-3); O2 Saturation, Venous 93 % (96-97); PCO2, Venous 47 mmHg (36-56); PO2, Venous 70 mmHg (15-58); pH, Venous 7.29 (7.33-7.66)
[2024-11-15 12:44] LABS: Lactic Acid, 3 HR 2.8 mMol/L (0.4-2.0)
[2024-11-15 12:50] LABS: Hemoglobin 9.7 g/dL (12.0-16.0)
--- NOTE | 2024-11-15 12:56 | ESPR_ITS ---
Documentation for date of: 11/15/24 Subjective Subjective Interval history: Stefani Harris is an 88-year-old Tagalog-speaking female with a PMHx of gastric cancer s/p partial gastrectomy on sunitinib malate (following [facility] oncology), chronic macrocytic anemia, GI bleed, FTT, paroxysmal A-fib (no AC) presented on evening of 11/08 for acute blood loss anemia secondary to anastomotic leak from gastric surgery (2008). Initial hemoglobin 8.5, hematocrit 27.9, MCV 123, platelets 50K, Cr 2.5, lactate 5.6, Pro-Alex 6.9. During hospital course, patient had dark-colored BMs and FOBT positive. GI, Dr. Ledesma, consulted and EGD done on 11/09 showed esophagitis, significant blood at anastomotic site, and G-tube could not be visualized. Received 2 units PRBC and 1 unit platelets and transferred to ICU. Repeat H&H showed improvement in hemoglobin from 6.7 to 12.3 and platelets from 43 to 119. Downgraded to floors and given IVF for WILLIE. On 11/13 at 10 AM, RR called for hemoptysis of 400 to 500 cc of blood and 100 cc suctioned out from G-tube. Initial vitals showed SBP at 141, HR 110, O2 92%. Repeat vitals showed SBP 90. Transfused 2 PRBCs, 1 unit FFP, infused tranexamic acid 1 g x2. Intubated for airway protection and sedated on fentanyl and propofol drips. BP decreased to 58/46 and started on Levophed and vasopressin drips. Upgraded to ICU on 11/13 for further management. 11/14: Seen and examined at bedside in ICU. No acute overnight events reported. No UOP, however bladder scan showed ~330 cc urine and will place Melissa today. ABG in AM showed pH 7.25, pCO2 53, and pO2 83 and so RR increased from 22 to 25 and Vt increased from 250 to 310 based off 8 ml/kg. Will follow-up repeat ABG. Otherwise, hold on Sunitinib as may be exacerbating/causing patient's UGIB due to side-effects. Sedated on fentanyl only and pressors taken off around midnight. 11/15: Seen and examined at bedside in ICU. No acute overnight events reported. Repeat ABG showed pH 7.48, pCO2 29, pO2 86 and vent settings changed to decrease VT from 310 to 280. Follow-up ABG showed pH 7.4, pCO2 36, and pO2 121. Spoke to transfer professor who stated that patient has been accepted by Dr. Alfredo Ledesma, just pending bed availability. A.m. labs showed hemoglobin of 10.3 after 2 units PRBC, 1 unit FFP, and 1 unit platelets. Repeat at noon showed stable hemoglobin of 9.7 and will continue to trend monitor twice daily. Cryoprecipitate ordered today. Exam Vital Signs Temp Pulse Resp BP Pulse Ox O2 Del Method O2 Flow Rate 95.9 F L 65 26 H 108/56 L 98 Mechanical Ventilation 1 11/15/24 08:00 11/15/24 12:00 11/15/24 11:45 11/15/24 11:45 11/15/24 11:45 11/15/24 08:00 11/14/24 01:13 FiO2 30 11/15/24 10:08 Narrative Exam General: intubated, sedated, and mechanically ventilatd HEENT: NG and ET tubes in place with blood noted in lumens; blood noted around oral mucosa Cardiovascular: regular rate and rhythm, S1/S2 present, no murmurs appreciated Pulmonary: clear to auscultation bilaterally, no rales/rhonchi/wheezes Abdominal: soft, non-tender, non-distended, no rebound/guarding, normal bowel sounds present Musculoskeletal: 2+ pitting edema in upper and lower extremities bilaterally Skin: warm and dry, intact, no rashes Neuro: GCS 8T Objective Labs 11/18/24 06:46 11/18/24 06:46 Labs: Laboratory Results - last 24 hr 11/13/24 11/14/24 11/14/24 10:21 12:05 18:58 WBC 0.9 L* RBC 2.24 L Hgb 6.9 L* 8.6 L D Hct 20.8 L* 24.9 L MCV 93 MCH 30.8 MCHC 33.2 RDW Std Deviation 56.3 H Plt Count 88 L Neut % (Auto) 38 Lymph % (Auto) 49 [place] % (Auto) 11 Eos % (Auto) 1 Baso % (Auto) 0 Neut # (Auto) 0.3 L Lymph # (Auto) 0.4 L [place] # (Auto) 0.1 Eos # (Auto) 0.0 Baso # (Auto) 0.0 Immature Gran # (Auto) 0.00 Absolute Nucleated RBC 0.04 H Immature Gran % 0 Nucleated RBC % 5 H PT 15.1 H INR 1.4 H APTT 42.9 H Fibrinogen 92 L* D-Dimer 1100 H Puncture Site ABG pH ABG pCO2 ABG pO2 ABG HCO3 ABG O2 Saturation ABG Base Excess VBG pH VBG pCO2 VBG pO2 VBG O2 Sat (Diane) VBG Base Excess FiO2 Sodium Potassium Chloride Carbon Dioxide Anion Gap BUN Creatinine Estim Creat Clear Calc eGFR BUN/Creatinine Ratio Glucose Calculated Osmolality Lactic Acid Calcium Phosphorus Magnesium Blood Type A Positive Antibody Screen NEGATIVE Crossmatch See Detail Blood Bank Wristband ID Yes Blood Bank Comment PLATP Ready 11/14/24 11/15/24 11/15/24 22:57 02:54 04:43 WBC RBC Hgb 10.0 L 10.3 L Hct 28.3 L 29.1 L MCV MCH MCHC RDW Std Deviation Plt Count Neut % (Auto) Lymph % (Auto) [place] % (Auto) Eos % (Auto) Baso % (Auto) Neut # (Auto) Lymph # (Auto) [place] # (Auto) Eos # (Auto) Baso # (Auto) Immature Gran # (Auto) Absolute Nucleated RBC Immature Gran % Nucleated RBC % PT INR APTT Fibrinogen D-Dimer Puncture Site Right Radial ABG pH 7.48 H D ABG pCO2 29 L D ABG pO2 86 ABG HCO3 21 ABG O2 Saturation 98 ABG Base Excess -1 VBG pH VBG pCO2 VBG pO2 VBG O2 Sat (Diane) VBG Base Excess FiO2 30 Sodium Potassium Chloride Carbon Dioxide Anion Gap BUN Creatinine Estim Creat Clear Calc eGFR BUN/Creatinine Ratio Glucose Calculated Osmolality Lactic Acid Calcium Phosphorus Magnesium Blood Type Antibody Screen Crossmatch Blood Bank Wristband ID Blood Bank Comment 11/15/24 11/15/24 11/15/24 05:21 07:52 08:50 WBC 1.8 L D RBC 3.51 L Hgb 10.4 L Hct 29.1 L MCV 83 MCH 29.6 MCHC 35.7 RDW Std Deviation 47.5 H Plt Count 131 L D Neut % (Auto) 68 Lymph % (Auto) 22 [place] % (Auto) 9 Eos % (Auto) 1 Baso % (Auto) 1 Neut # (Auto) 1.2 L Lymph # (Auto) 0.4 L [place]ukes # (Auto) 0.2 Eos # (Auto) 0.0 Baso # (Auto) 0.0 Immature Gran # (Auto) 0.01 H Absolute Nucleated RBC 0.04 H Immature Gran % 1 H Nucleated RBC % 2 H PT INR APTT Fibrinogen D-Dimer Puncture Site Arterial Line ABG pH 7.40 ABG pCO2 36 ABG pO2 121 H D ABG HCO3 22 ABG O2 Saturation 99 H ABG Base Excess -3 VBG pH VBG pCO2 VBG pO2 VBG O2 Sat (Diane) VBG Base Excess FiO2 30 Sodium 138 Potassium 3.6 D Chloride 106 Carbon Dioxide 21.0 Anion Gap 11 BUN 41 H Creatinine 1.3 Estim Creat Clear Calc 20.8 L eGFR 40 L BUN/Creatinine Ratio 32 H Glucose 119 H D Calculated Osmolality 286 Lactic Acid 3.2 H Calcium 8.0 L Phosphorus 3.4 Magnesium 2.0 Blood Type Antibody Screen Crossmatch Blood Bank Wristband ID Blood Bank Comment 11/15/24 12:15 WBC RBC Hgb 9.7 L Hct 28.0 L MCV MCH MCHC RDW Std Deviation Plt Count Neut % (Auto) Lymph % (Auto) [place] % (Auto) Eos % (Auto) Baso % (Auto) Neut # (Auto) Lymph # (Auto) [place] # (Auto) Eos # (Auto) Baso # (Auto) Immature Gran # (Auto) Absolute Nucleated RBC Immature Gran % Nucleated RBC % PT INR APTT Fibrinogen D-Dimer Puncture Site ABG pH ABG pCO2 ABG pO2 ABG HCO3 ABG O2 Saturation ABG Base Excess VBG pH 7.29 L VBG pCO2 47 VBG pO2 70 H VBG O2 Sat (Diane) 93 L VBG Base Excess -4 L FiO2 Sodium Potassium Chloride Carbon Dioxide Anion Gap BUN Creatinine Estim Creat Clear Calc eGFR BUN/Creatinine Ratio Glucose Calculated Osmolality Lactic Acid 2.8 H Calcium Phosphorus Magnesium Blood Type Antibody Screen Crossmatch Blood Bank Wristband ID Blood Bank Comment ABG Interpretation ABG results: 11/13/24 11/14/24 11/14/24 15:02 05:13 07:53 ABG pH 7.38 7.25 L D 7.24 L ABG pCO2 41 53 H D 56 H ABG pO2 96 83 75 L ABG HCO3 24 23 24 ABG O2 Saturation 98 96 96 ABG Base Excess -1 -4 L -4 L VBG pH VBG pCO2 VBG pO2 VBG Base Excess 11/14/24 11/15/24 11/15/24 11:30 04:43 08:50 ABG pH 7.32 L 7.48 H D 7.40 ABG pCO2 43 D 29 L D 36 ABG pO2 76 L 86 121 H D ABG HCO3 22 21 22 ABG O2 Saturation 97 98 99 H ABG Base Excess -4 L -1 -3 VBG pH VBG pCO2 VBG pO2 VBG Base Excess 11/15/24 12:15 ABG pH ABG pCO2 ABG pO2 ABG HCO3 ABG O2 Saturation ABG Base Excess VBG pH 7.29 L VBG pCO2 47 VBG pO2 70 H VBG Base Excess -4 L Quality Measures Quality Measures VTE prophylaxis (SCDs) Advance care planning discussed with:: child and legal surragate Assessment & Plan Assessment Current Active Medications: Generic Name Dose Route Start Last Admin Trade Name Freq PRN Reason Stop Dose Admin Acetaminophen 650 mg 11/09/24 08:42 Acetaminophen 325 Mg Tablet PO 12/09/24 01:01 Q6H PRN Fever >100 Albuterol 2.5 mg 11/13/24 15:00 11/15/24 10:06 Albuterol Rt 2.5 Mg/0.5 Ml Nebu INH 12/13/24 14:59 2.5 mg Q4HRRT LAKESHA Administration Allopurinol 100 mg 11/09/24 14:00 11/09/24 14:04 Allopurinol 100 Mg Tablet PO 12/09/24 13:59 Not Given DAILY LAKESHA Sunitinib Malate 25 0 ea 11/11/24 09:30 11/14/24 10:44 Mg Capsules PO 12/11/24 09:29 Not Given DAILY LAKESHA Folic Acid 1 mg 11/12/24 09:15 11/15/24 08:01 Folic Acid 1 Mg Tablet GT 12/09/24 08:59 1 mg QDAY LAKESHA Administration Octreotide Acetate 1,000 mcg/ 102 mls @ 5.1 mls/hr 11/13/24 11:05 11/15/24 05:41 Sodium Chloride IV 11/18/24 11:05 50 mcg/hr .Q20H LAKESHA 5.1 mls/hr Administration Protocol 50 MCG/HR Norepinephrine/Dextrose 8 mg in 250 mls @ 4.635 mls/hr 11/13/24 11:55 02/23/25 07:00 Levophed In D5w 8mg/250ml IV 12/13/24 11:54 0 mcg/kg/min .Q24H PRN 0 mls/hr PER PROTOCOL Titration Protocol 0.05 MCG/KG/MIN Vasopressin/Sodium Chloride 20 unit in 100 mls @ 9 mls/hr 11/13/24 13:27 11/15/24 11:47 Vasostrict/Ns Ivpb IV 12/13/24 13:26 0.03 unit/min .Q11H7M PRN 9 mls/hr PER PROTOCOL Administration Protocol 0.03 UNIT/MIN Fentanyl Citrate 2,500 mcg in 250 mls @ 2.5 mls/hr 11/13/24 13:39 11/15/24 11:00 Sublimaze Inj 2,500 Mcg/250 Ml Bag IV 11/18/24 13:38 150 mcg/hr .Q24H PRN 15 mls/hr PER PROTOCOL Titration Protocol 25 MCG/HR Propofol 1,000 mg in 100 mls @ 1.483 mls/hr 11/13/24 13:39 11/15/24 07:00 Diprivan Ivpb IV 12/13/24 13:38 0 mcg/kg/min .Q24H PRN 0 mls/hr PER PROTOCOL Titration Protocol 5 MCG/KG/MIN Albumin Human 25 gm in 100 mls @ 100 mls/hr 11/14/24 14:10 11/15/24 08:00 Albuminar-25 Ivpb IV 11/17/24 14:09 100 mls/hr QDAY LAKESHA Administration Pantoprazole Sodium 40 mg 11/14/24 21:00 11/15/24 08:01 Pantoprazole Inj 40 Mg Vial IVP 12/14/24 20:59 40 mg BID LAKESHA Administration Vitamin B Complex/Vit C/Folic Acid 1 tab 11/09/24 09:00 11/15/24 08:01 Vit B12/Vit C/Fa (Nephrovite) Tablet PO 12/09/24 08:59 1 tab QDAY LAKESHA Administration Plan Stefani Harris is an 88-year-old Tagalog-speaking female with a PMHx of gastric cancer s/p partial gastrectomy on sunitinib malate (following [facility] oncology), chronic macrocytic anemia, GI bleed, FTT, paroxysmal A-fib (no AC) presented on evening of 11/08 for acute blood loss anemia secondary to anastomotic leak from gastric surgery (2008). Initial hemoglobin 8.5, hematocrit 27.9, MCV 123, platelets 50K, Cr 2.5, lactate 5.6, Pro-Alex 6.9. During hospital course, patient had dark-colored BMs and FOBT positive. GI, Dr. Ledesma, consulted and EGD done on 11/09 showed esophagitis, significant blood at anastomotic site, and G-tube could not be visualized. Received 2 units PRBC and 1 unit platelets and transferred to ICU. Repeat H&H showed improvement in hemoglobin from 6.7 to 12.3 and platelets from 43 to 119. Downgraded to floors and given IVF for WILLIE. On 11/13 at 10 AM, RR called for hemoptysis of 400 to 500 cc of blood and 100 cc suctioned out from G-tube. Initial vitals showed SBP at 141, HR 110, O2 92%. Repeat vitals showed SBP 90. Transfused 2 PRBCs, 1 unit FFP, infused tranexamic acid 1 g x2. Intubated for airway protection and sedated on fentanyl and propofol drips. BP decreased to 58/46 and started on Levophed and vasopressin drips. Upgraded to ICU on 11/13 for further management. Neurological #Sedated, on fentanyl ? RASS goal of -3 Cardiovascular #Shock, hypovolemic secondary to upper GI bleed Initial hemoglobin 8.5 that downtrended to 6.7 and received 2 units PRBC and 1 unit platelet. Repeat CBC showed hemoglobin 12.3. Repeat hemoglobin after RR 8.3 and receiving additional 2 units PRBC and 1 unit FFP. Repeat CBC showed hemoglobin stable at 8.5. Blood products: 6 units pRBC, 2 unit platelet, 2 unit FFP Status post 1 g tranexamic acid x 2 ? Levophed and vasopressin drips PRN ? 11/14 off since midnight ? Cryoprecipitate ordered today #Paroxysmal A-fib ? K > 4, Mg > 2 ? Hold all AC given upper GI bleed Pulmonary #Intubated and mechanically ventilated due to inability to protect airway ? Vent settings: VT 280, RR 25, PEEP 5, FiO2 30% ? Follow-up ABG after vent settings change Gastrointestinal #Upper GI bleed #Gastric cancer s/p partial gastrectomy on Sunitinib malate See cardiovascular above for additional details. CTA A/P: 6.1 cm mass in left upper abdomen (smaller compared to 05/2024, 8.0 cm), anasarca, significant bilateral pleural effusions, pneumonia and atelectasis in lower zones. ? GI recommends no EGD at this time -> transfer to tertiary center for possible gastroduodenal embolization ? Continue pantoprazole IV BID and octrotide drips (-11/18) ? Accepted at [facility] but pending bed ? No chemical anticoagulation -> SCDs for DVT prophylaxis Renal #WILLIE, likely prerenal Cr on admission 2.0 in setting of acute blood loss anemia. Cr improved after IVF. Cr noted to increase from 1.2 to 1.4 after rapid response. #Lactic acidosis, in setting of shock and gastric tumor Oxygen extraction ratio: (SaO2 - SvO2)/SaO2 x 100 = 6% Low extraction ratio, indicating decreased oxygen extraction which may also indicate decreased metabolic demand (tissues needing less oxygen) or impaired tissue oxygen utilization However, likely also increased in setting of gastric tumor and will no longer trend Endocrine No acute/active disease Heme/onc #Acute blood loss anemia Status post 6 units PRBC, 2 unit platelet, 2 unit FFP ? See cardiovascular above #Thrombocytopenia #Leukopenia In setting of Sunitinib for history of gastric cancer. ? Hold Sunitinib #History of microcytic anemia ? Folate 1 mg daily, received B12 injection Infectious disease No acute/active disease Hospital management: Disposition: critically ill in ICU, pending transfer to [facility] Drips: vasopressin, fentanyl, octreotide Fluids: none Diet: NPO Lines: PIV, ET tube, NG tube DVT prophylaxis: SCDs GI prophylaxis: pantoprazole and octreotide Melissa: placed 11/14 CODE STATUS: DNR ----- Plan discussed with attending physician Dr. Corrine Leal MD PGY-1 Internal Medicine Attending Provider Attestation/Addendum Patient seen and examined with above resident, Rodolfo Leal MD. I agree with the findings, assessment, and plan of care as documented except for any differences below. Patient remains hemodynamically stable after additional transfusions. Will continue to hold sunitinib and will continue to monitor serial hemoglobin. Patient requiring intermittent use of vasopressin or Levophed though we will favor Levophed improved. She continues to improve. Will continue to require close monitoring in the intensive care unit as she remains at high risk for repeat bleeding given the source is likely underlying malignancy. Definitive therapy is still warranted with plan to transfer to [facility] for oncology service is best equipped to take care of her. She may require advanced endoscopy or IR embolization. Significant bleeding should it recur. We have requested checking DIC panel as well given the presence of underlying malignancy and risk for blood clots as well as hemorrhage. Will replace fibrinogen based on results. Patient remains on appropriate PPI twice daily as well as octreotide though this will need to be considered in the coming days should she remain with us for more extended period. Patient will remain n.p.o. at this point with no plans for tube feeding as she is likely to be transferred to tertiary facility for above-mentioned therapies. Patient remains on appropriate lung protective low tidal volume ventilation with adequate gas exchange. Total critical care time: I personally spent 40 minutes for review of physiologic parameters, directing plan of care throughout the day, coordination of care with other subspecialist, and counseling patient's family at bedside. This is exclusive of time spent teaching housestaff or performing any separate billable procedures. Patient remains at high risk for further morbidity and mortality warranting ongoing critical care services along with close monitoring only available in the intensive care unit for hemorrhagic shock secondary to gastric cancer.
[2024-11-15] MEDS: FUROSEMIDE INJ 10 MG/ML 4ML VIAL 40 MG IVP (13:08)
[2024-11-15 13:11] LABS: Albumin, Serum 2.5 gm/dL (3.4-4.8)
--- NOTE | 2024-11-15 18:20 | PC.NURSE ---
11/15/24 1230 pm multiple attempts made to blood bank for 1 unit of cryo ordered by MD to be given to patient with no success. per clay processing labourer john order not received. 11/15/24 1823 received call from john, requesting new order to be placed for 1 unit cryo. will let icu team know
[2024-11-15 19:00] LABS: Hematocrit 29.6 % (36.0-46.0); Hemoglobin 10.1 g/dL (12.0-16.0)
--- NOTE | 2024-11-15 19:04 | ESPR_ITS ---
Documentation for date of: 11/15/24 Subjective Subjective Interval history: Patient evaluated Remains intubated in the ICU hemoglobin hematocrit 9.7 and 28.5 Patient accepted at [facility] waiting for the bed Exam Vital Signs Temp Pulse Resp BP Pulse Ox O2 Del Method O2 Flow Rate 95.9 F L 67 24 H 129/65 98 Mechanical Ventilation 1 11/15/24 08:00 11/15/24 18:38 11/15/24 18:38 11/15/24 18:38 11/15/24 18:38 11/15/24 08:00 11/14/24 01:13 FiO2 30 11/15/24 18:16 Objective Labs 11/15/24 12:15 11/15/24 05:21 Labs: Laboratory Results - last 24 hr 11/13/24 11/14/24 11/14/24 10:21 18:58 22:57 WBC RBC Hgb 8.6 L D 10.0 L Hct 24.9 L 28.3 L MCV MCH MCHC RDW Std Deviation Plt Count Neut % (Auto) Lymph % (Auto) [place] % (Auto) Eos % (Auto) Baso % (Auto) Neut # (Auto) Lymph # (Auto) [place] # (Auto) Eos # (Auto) Baso # (Auto) Immature Gran # (Auto) Absolute Nucleated RBC Immature Gran % Nucleated RBC % Puncture Site ABG pH ABG pCO2 ABG pO2 ABG HCO3 ABG O2 Saturation ABG Base Excess VBG pH VBG pCO2 VBG pO2 VBG O2 Sat (Diane) VBG Base Excess FiO2 Sodium Potassium Chloride Carbon Dioxide Anion Gap BUN Creatinine Estim Creat Clear Calc eGFR BUN/Creatinine Ratio Glucose Calculated Osmolality Lactic Acid Calcium Phosphorus Magnesium Albumin Blood Type A Positive Antibody Screen NEGATIVE Crossmatch See Detail Blood Bank Wristband ID Yes Blood Bank Comment PLATP Ready 11/15/24 11/15/24 11/15/24 02:54 04:43 05:21 WBC 1.8 L D RBC 3.51 L Hgb 10.3 L 10.4 L Hct 29.1 L 29.1 L MCV 83 MCH 29.6 MCHC 35.7 RDW Std Deviation 47.5 H Plt Count 131 L D Neut % (Auto) 68 Lymph % (Auto) 22 [place] % (Auto) 9 Eos % (Auto) 1 Baso % (Auto) 1 Neut # (Auto) 1.2 L Lymph # (Auto) 0.4 L [place] # (Auto) 0.2 Eos # (Auto) 0.0 Baso # (Auto) 0.0 Immature Gran # (Auto) 0.01 H Absolute Nucleated RBC 0.04 H Immature Gran % 1 H Nucleated RBC % 2 H Puncture Site Right Radial ABG pH 7.48 H D ABG pCO2 29 L D ABG pO2 86 ABG HCO3 21 ABG O2 Saturation 98 ABG Base Excess -1 VBG pH VBG pCO2 VBG pO2 VBG O2 Sat (Diane) VBG Base Excess FiO2 30 Sodium 138 Potassium 3.6 D Chloride 106 Carbon Dioxide 21.0 Anion Gap 11 BUN 41 H Creatinine 1.3 Estim Creat Clear Calc 20.8 L eGFR 40 L BUN/Creatinine Ratio 32 H Glucose 119 H D Calculated Osmolality 286 Lactic Acid Calcium 8.0 L Phosphorus 3.4 Magnesium 2.0 Albumin Blood Type Antibody Screen Crossmatch Blood Bank Wristband ID Blood Bank Comment 11/15/24 11/15/24 11/15/24 07:52 08:50 12:15 WBC RBC Hgb 9.7 L Hct 28.0 L MCV MCH MCHC RDW Std Deviation Plt Count Neut % (Auto) Lymph % (Auto) [place] % (Auto) Eos % (Auto) Baso % (Auto) Neut # (Auto) Lymph # (Auto) [place] # (Auto) Eos # (Auto) Baso # (Auto) Immature Gran # (Auto) Absolute Nucleated RBC Immature Gran % Nucleated RBC % Puncture Site Arterial Line ABG pH 7.40 ABG pCO2 36 ABG pO2 121 H D ABG HCO3 22 ABG O2 Saturation 99 H ABG Base Excess -3 VBG pH 7.29 L VBG pCO2 47 VBG pO2 70 H VBG O2 Sat (Diane) 93 L VBG Base Excess -4 L FiO2 30 Sodium Potassium Chloride Carbon Dioxide Anion Gap BUN Creatinine Estim Creat Clear Calc eGFR BUN/Creatinine Ratio Glucose Calculated Osmolality Lactic Acid 3.2 H 2.8 H Calcium Phosphorus Magnesium Albumin 2.5 L D Blood Type Antibody Screen Crossmatch Blood Bank Wristband ID Blood Bank Comment Impressions Impression: # upper GI bleed # Acute respiratory failure requiring mechanical ventilation # Hypotension on pressors Continue current management ABG Interpretation ABG results: 11/13/24 11/14/24 11/14/24 15:02 05:13 07:53 ABG pH 7.38 7.25 L D 7.24 L ABG pCO2 41 53 H D 56 H ABG pO2 96 83 75 L ABG HCO3 24 23 24 ABG O2 Saturation 98 96 96 ABG Base Excess -1 -4 L -4 L VBG pH VBG pCO2 VBG pO2 VBG Base Excess 11/14/24 11/15/24 11/15/24 11:30 04:43 08:50 ABG pH 7.32 L 7.48 H D 7.40 ABG pCO2 43 D 29 L D 36 ABG pO2 76 L 86 121 H D ABG HCO3 22 21 22 ABG O2 Saturation 97 98 99 H ABG Base Excess -4 L -1 -3 VBG pH VBG pCO2 VBG pO2 VBG Base Excess 11/15/24 12:15 ABG pH ABG pCO2 ABG pO2 ABG HCO3 ABG O2 Saturation ABG Base Excess VBG pH 7.29 L VBG pCO2 47 VBG pO2 70 H VBG Base Excess -4 L Assessment & Plan A&P Narrative # Melena # FOBT positive # Acute posthemorrhagic anemia Plan Fiberoptic esophagogastroduodenoscopy with possible biopsy possible therapeutic intervention under intravenous moderate sedation Informed consent obtained from the mall plant caretaker and the family and this has been scheduled for today At the moment family intends to keep the PEG tube and we will reevaluate the stomach endoscopically on the inside serial CBC IV Protonix Will follow the patient Other medical problems include # Paroxysmal atrial fibrillation rate controlled not on Eliquis at this time # Gastric adenocarcinoma requiring partial gastrectomy at [facility] patient does see oncology there # Failure to thrive Thank you very much for the opportunity to participate in the care of this patient Time Spent With Patient Time: Total time spent is greater than 50% in coordination of care (as documented) at patient's floor/unit and/or counseling patient: Procedures Arterial Line Size (Gauge): 18
--- NOTE | 2024-11-15 19:47 | ESPR_ITS ---
Documentation for date of: 11/15/24 Subjective Subjective Interval history: Informant daughter Ms. 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 Patient noted to be hypotensive. IV fluids were given in the emergency department. In the ER blood pressure was 70/35, heart rate 119 max temp was 101. Labs showed hemoglobin 8.5, platelets 50, sodium 149, BUN 45, creatinine 2.5, glucose 69, elevated LFTs. Pro-Alex 6.99. Flu and COVID-negative. Chest x-ray showed pneumonia. EKG sinus tach. Patient was given 2 L of fluid bolus, antibiotics Zosyn and doxycycline were initiated and subsequently transferred to telemetry. Patient currently seen in ICU on telemetry status. Renal consultation requested for worsening renal function. Home medications included allopurinol, sunitinib. 11/10/2024 patient currently seen in ICU. Resting comfortably. Alert and awake. Had a GI bleed and was transferred to ICU yesterday. Currently she seems to be stable. Not on any pressors. Blood pressure 129/99, heart rate 81. Hemoglobin 12.1, platelets 119. Sodium 149, potassium 3.6, BUN 38, creatinine 1.4, glucose 62, calcium 8, magnesium 2. Spoke to ICU team-start patient on D5W p.o. for hypoglycemia and hypernatremia. Currently on antibiotics. 11/11/2024 patient currently seen in medical floor. Moved out of ICU. Resting comfortably. Alert and awake. Blood sugar 92. Blood pressure 130/60, heart rate 80. Urine output seems to be acceptable. Edema seems to be better. Still having some shortness of breath. WBC 2.6, hemoglobin 11.2, platelets 74. Sodium 142, potassium 3.1, BUN 30, creatinine 1.2, calcium 7.7, phosphorus 2.6, magnesium 1.8. Electrolytes are all replaced. 11/15/2024 patient currently seen in ICU. Patient has profuse GI bleed-receiving blood transfusions. Dr. Ledesma on the case. Unable to stop the bleeding. Patient will be transferred to [facility] where she had her gastric cancer treated. Currently with blood products her hemoglobin stable. Labs, medications have been reviewed. Replace electrolytes. Plan of care discussed with ICU team. On ventilator. Review of Systems Review of Systems ROS Unobtainable: due to endotracheal tube Exam Vital Signs Temp Pulse Resp BP Pulse Ox O2 Del Method O2 Flow Rate 35.5 C L 67 24 H 129/65 98 Mechanical Ventilation 1 11/15/24 08:00 11/15/24 18:38 11/15/24 18:38 11/15/24 18:38 11/15/24 18:38 11/15/24 08:00 11/14/24 01:13 FiO2 30 11/15/24 18:16 Narrative Exam GENERAL APPEARANCE: Elderly lady currently seen in ICU. On the vent. CARDIOVASCULAR: Heart regular, no murmurs LUNGS/CHEST: Chest clear to auscultation. No rales, rhonchi, wheezing ABDOMEN: Soft, nontender, nondistended. No masses. Normal bowel sounds. Patient has a feeding tube EXTREMITIES: 2+ edema in the upper extremities SKIN: Skin exam normal without any rashes MUSCULOSKELETAL: In bed NEUROLOGICAL : intubated, sedated Objective Labs 11/15/24 18:45 11/15/24 05:21 Labs: Laboratory Results - last 24 hr 11/13/24 11/14/24 11/15/24 10:21 22:57 02:54 WBC RBC Hgb 10.0 L 10.3 L Hct 28.3 L 29.1 L MCV MCH MCHC RDW Std Deviation Plt Count Neut % (Auto) Lymph % (Auto) [place] % (Auto) Eos % (Auto) Baso % (Auto) Neut # (Auto) Lymph # (Auto) [place] # (Auto) Eos # (Auto) Baso # (Auto) Immature Gran # (Auto) Absolute Nucleated RBC Immature Gran % Nucleated RBC % Puncture Site ABG pH ABG pCO2 ABG pO2 ABG HCO3 ABG O2 Saturation ABG Base Excess VBG pH VBG pCO2 VBG pO2 VBG O2 Sat (Diane) VBG Base Excess FiO2 Sodium Potassium Chloride Carbon Dioxide Anion Gap BUN Creatinine Estim Creat Clear Calc eGFR BUN/Creatinine Ratio Glucose Calculated Osmolality Lactic Acid Calcium Phosphorus Magnesium Albumin Crossmatch See Detail 11/15/24 11/15/24 11/15/24 04:43 05:21 07:52 WBC 1.8 L D RBC 3.51 L Hgb 10.4 L Hct 29.1 L MCV 83 MCH 29.6 MCHC 35.7 RDW Std Deviation 47.5 H Plt Count 131 L D Neut % (Auto) 68 Lymph % (Auto) 22 [place] % (Auto) 9 Eos % (Auto) 1 Baso % (Auto) 1 Neut # (Auto) 1.2 L Lymph # (Auto) 0.4 L [place] # (Auto) 0.2 Eos # (Auto) 0.0 Baso # (Auto) 0.0 Immature Gran # (Auto) 0.01 H Absolute Nucleated RBC 0.04 H Immature Gran % 1 H Nucleated RBC % 2 H Puncture Site Right Radial ABG pH 7.48 H D ABG pCO2 29 L D ABG pO2 86 ABG HCO3 21 ABG O2 Saturation 98 ABG Base Excess -1 VBG pH VBG pCO2 VBG pO2 VBG O2 Sat (Diane) VBG Base Excess FiO2 30 Sodium 138 Potassium 3.6 D Chloride 106 Carbon Dioxide 21.0 Anion Gap 11 BUN 41 H Creatinine 1.3 Estim Creat Clear Calc 20.8 L eGFR 40 L BUN/Creatinine Ratio 32 H Glucose 119 H D Calculated Osmolality 286 Lactic Acid 3.2 H Calcium 8.0 L Phosphorus 3.4 Magnesium 2.0 Albumin Crossmatch 11/15/24 11/15/24 11/15/24 08:50 12:15 18:45 WBC RBC Hgb 9.7 L 10.1 L Hct 28.0 L 29.6 L MCV MCH MCHC RDW Std Deviation Plt Count Neut % (Auto) Lymph % (Auto) [place] % (Auto) Eos % (Auto) Baso % (Auto) Neut # (Auto) Lymph # (Auto) [place] # (Auto) Eos # (Auto) Baso # (Auto) Immature Gran # (Auto) Absolute Nucleated RBC Immature Gran % Nucleated RBC % Puncture Site Arterial Line ABG pH 7.40 ABG pCO2 36 ABG pO2 121 H D ABG HCO3 22 ABG O2 Saturation 99 H ABG Base Excess -3 VBG pH 7.29 L VBG pCO2 47 VBG pO2 70 H VBG O2 Sat (Diane) 93 L VBG Base Excess -4 L FiO2 30 Sodium Potassium Chloride Carbon Dioxide Anion Gap BUN Creatinine Estim Creat Clear Calc eGFR BUN/Creatinine Ratio Glucose Calculated Osmolality Lactic Acid 2.8 H Calcium Phosphorus Magnesium Albumin 2.5 L D Crossmatch ABG Interpretation ABG results: 11/13/24 11/14/24 11/14/24 15:02 05:13 07:53 ABG pH 7.38 7.25 L D 7.24 L ABG pCO2 41 53 H D 56 H ABG pO2 96 83 75 L ABG HCO3 24 23 24 ABG O2 Saturation 98 96 96 ABG Base Excess -1 -4 L -4 L VBG pH VBG pCO2 VBG pO2 VBG Base Excess 11/14/24 11/15/24 11/15/24 11:30 04:43 08:50 ABG pH 7.32 L 7.48 H D 7.40 ABG pCO2 43 D 29 L D 36 ABG pO2 76 L 86 121 H D ABG HCO3 22 21 22 ABG O2 Saturation 97 98 99 H ABG Base Excess -4 L -1 -3 VBG pH VBG pCO2 VBG pO2 VBG Base Excess 11/15/24 12:15 ABG pH ABG pCO2 ABG pO2 ABG HCO3 ABG O2 Saturation ABG Base Excess VBG pH 7.29 L VBG pCO2 47 VBG pO2 70 H VBG Base Excess -4 L Assessment & Plan Assessment and plan (1) Acute renal failure (ARF): Status: Acute (2) Hypernatremia: Status: Acute (3) Septic shock: Status: Acute (4) Atrial fibrillation with RVR: Status: Acute (5) Thrombocytopenia: Status: Acute (6) Acute GI bleeding: Status: Acute (7) Hypotension: Status: Acute Additional Assessment & Plan Additional Plan: (1) Acute renal failure (ARF): Status: Acute Assessment and plan: Acute renal failure secondary to prerenal azotemia. Creatinine trending down with IV fluids. Blood pressure low . On pressors. Monitor hemoglobin posttransfusion. Dr. Ledesma was consulted for GI bleed. Yesterday status post endoscopy == unable to stop the bleeding. continue with fluid resuscitation, packed red blood cells. Hemoglobin stabilized today Patient will be transferred to [facility] (2) Hypernatremia: Status: Acute Assessment and plan: Sodium markedly improved to 138. Replace electrolytes. (3) Septic shock: Status: Acute Assessment and plan: Broad-spectrum antibiotics, fluids Shock seems to be resolved (4) Atrial fibrillation with RVR: Status: Acute Assessment and plan: Heart rate currently 80 (5) Thrombocytopenia: Status: Acute Assessment and plan: Platelets 112--74 (6) Acute GI bleeding: Status: Acute Assessment and plan: Dr. Ledesma on the case (7) Hypotension: Status: Acute Assessment and plan: Currently on pressors. Blood loss anemia. Procedures Arterial Line Size (Gauge): 18
[2024-11-15] MEDS: fentaNYL 2,500 MCG/250 ML BAG 2,500 MCG/250 ML BAG 15 MCG IV (20:05)
[2024-11-16] VITALS (116 sets, daily range): BP systolic 82–161; BP diastolic 45–83; PULSE 65–102; RESP 20–28; TEMP 36.3–36.9; O2SAT 90–100
[2024-11-16] MEDS: Norepinephrine/D5W 8mg/250ml 8 MG/250 ML BAG 4.635 MG IV
[2024-11-16] MEDS: VASOPRESSIN IN NS IVPB 20 UNIT/100 ML BAG 9 UNIT IV
--- NOTE | 2024-11-16 | XR_ITS ---
Examination: AP chest single view Technique: AP portable semiupright chest single view Exam date and time: November 16, 2024 0022 hrs. Comparison November 14, 2024 Indications: Reposition tracheal tube Findings: Endotracheal tube tip 4.7 cm above ana maría Mild enlargement cardiac contour Prominent vascular congestion Extensive edema and/or pneumonia throughout the lungs with significant layering left pleural fluid Right internal jugular central line tip SVC satisfactory position The orogastric tube is in the stomach, the tip is below the level film Prominent osteopenia Impression: [id number] heart failure Bilateral pneumonia Endotracheal tube tip 4.7 cm above ana maría
--- NOTE | 2024-11-16 00:27 | PC.RT ---
ETT was at 16cm at lips. Pt was originally at 22cm. Advanced ETT back to 22cm at lips. Xray at bedside. KATIE leblanc. MD Vila at bedside and OK with current placement.
--- NOTE | 2024-11-16 00:47 | PC.RT ---
Anchorfast changed out with KATIE montesinos. Old anchorfast was soiled.
[2024-11-16] MEDS: OCTREOTIDE ACET INJ 1,000 MCG in SODIUM CHLORIDE 0.9% 100 ML 5.1 MCG IV ×2 (02:15→19:12)
[2024-11-16] MEDS: ALBUTEROL RT 2.5 MG/0.5 ML NEBU INH ×6 (02:17→22:56)
[2024-11-16 03:24] LABS: Basophils % (Auto) 1 % (0-2.5); Eosinophils % (Auto) 0 % (0-10); Hematocrit 30.1 % (36.0-46.0); Hemoglobin 10.2 g/dL (12.0-16.0); Immature Granulocytes % (Auto) 0 % (0-0); Immature Granulocytes Auto 0.01 Thou/mm3 (0.00-0.00); Lymphocytes # (Auto) 0.4 Thou/mm3 (1.0-4.8); Lymphocytes % (Auto) 11 % (10-50); Mean Corpuscular HGB Conc 33.9 g/dl (31.0-37.0); Mean Corpuscular Hemoglobin 29.4 pg (25.0-35.0); Mean Corpuscular Volume 87 fL (80-100); Monocytes # (Auto) 0.2 Thou/mm3 (0.0-0.8); Monocytes % (Auto) 6 % (0-12); Neutrophils # (Auto) 2.7 Thou/mm3 (1.8-7.7); Neutrophils % (Auto) 82 % (37-80); Nucleated Red Blood Cell # 0.05 Thou/mm3 (0.00-0.00); Nucleated Red Blood Cell % 2 /100 WBC (0); Platelet Count 116 Thou/mm3 (140-440); RDW Standard Deviation 54.4 fL (36.4-46.3); Red Blood Count 3.47 Miln/mm3 (4.00-5.20); White Blood Count 3.3 Thou/mm3 (3.6-11.0)
[2024-11-16 03:36] LABS: Anion Gap 9 (7-16); BUN/Creatinine Ratio 29 Ratio (12-20); Blood Urea Nitrogen 43 mg/dL (9-23); Calcium 8.4 mg/dL (8.3-10.6); Carbon Dioxide 24.4 mMol/L (20.0-31.0); Chloride 106 mMol/L (98-107); Creatinine (Component) 1.5 mg/dL (0.6-1.3); Estimated Creatinine Clearance 20.6 mL/min (>60); Glucose 68 mg/dL (74-106); Osmolality,Calculated 286 (275-295); Phosphorous 4.6 mg/dL (2.4-5.1); Potassium 4.3 mMol/L (3.4-5.1); Sodium 139 mMol/L (136-145); eGFR 34 See Note
[2024-11-16] MEDS: DEXTROSE 50%-WATER INJ 50 ML SYRINGE 25 ML IV (05:55)
--- NOTE | 2024-11-16 06:27 | ESDS_ITS ---
<Statement entered by Maldonado Castle MD - 11/18/24 08:17> Attending Attestation:I have reviewed and agree. Please see my note from the same date of service for ultimate plan of care prior to discharge. Planned Discharge Date 11/16/24 DS: Providers Provider Date of admission: 11/09/24 01:02 Primary care physician: Gopal Dawson MD Admitting Provider: Taqueria Kong MD Attending Provider on Admission: Maldonado Castle MD Consults: 11/09/24 08:37 Consult to Gastroenterology Stat Comment: fobt positive Consulting Provider: Kimo Ledesma 11/09/24 08:40 Consult to Gastroenterology Routine Comment: FOBT + Consulting Provider: Kimo Ledesma 11/09/24 10:45 Consult to Nephrology Routine Comment: willie and hypernatremia Consulting Provider: Shayy Hyman 11/09/24 11:24 Referral Speech Therapy Routine Comment: 11/09/24 13:51 Referral Registered Dietitian Routine Comment: 11/09/24 20:12 Consult to General Surgery Urgent Comment: GI bleed Consulting Provider: Dawit Alejandra 11/11/24 06:48 Referral Wound Care Routine Comment: 11/11/24 13:52 Referral Hospice Routine Comment: Want to talk about options 11/12/24 09:10 Referral Physical Therapy Urgent Comment: Physician Instructions: Instructions: 4 d/c pls 11/13/24 13:30 Referral - Fraud Prevention Analyst Stat Service Needed for Transfer: Interventional Radiology Addl Comments:: embolization of the gastric artery Attending Provider on DC: Ba Vila MD Discharging Provider: Ba Vila MD DS: Diagnosis Problem List Completed Was Problem List Reviewed/Reconciled?: Yes Hospital Course Hospital Course Hospital course: Stefani Harris is an 88-year-old Tagalog-speaking female with a PMHx of gastric cancer s/p partial gastrectomy on sunitinib malate (following [facility] oncology), chronic macrocytic anemia, GI bleed, FTT, paroxysmal A-fib (no AC) presented on evening of 11/08 for acute blood loss anemia secondary to anastomo tic leak from gastric surgery (2008). Initial hemoglobin 8.5, hematocrit 27.9, MCV 123, platelets 50K, Cr 2.5, lactate 5.6, Pro-Alex 6.9. During hospital course, patient had dark-colored BMs and FOBT positive. GI, Dr. Ledesma, consulted and EGD done on 11/09 showed esophagitis, significant blood at anastomotic site, and G-tube could not be visualized. During this hospitalization patient has received a total of 6 PRBCs, 3 platelets, 2 FFP's, and 1 cryoprecipitate. Patient continues on pressors with Levophed and vasopressin for blood pressure support. Patient is intubated and mechanically ventilated and sedated with fentanyl drip. Patient also on octreotide drip. Patient continues to have dark tarry stools likely secondary from upper GI bleed. Patient accepted for transfer at [facility] and is now being discharged to [facility] now that they have bed availability. Stefani Harris is an 88-year-old Tagalog-speaking female with a PMHx of gastric cancer s/p partial gastrectomy on sunitinib malate (following [facility] oncology), chronic macrocytic anemia, GI bleed, FTT, paroxysmal A-fib (no AC) presented on evening of 11/08 for acute blood loss anemia secondary to anastomotic leak from gastric surgery (2008). Initial hemoglobin 8.5, hematocrit 27.9, MCV 123, platelets 50K, Cr 2.5, lactate 5.6, Pro-Alex 6.9. During hospital course, patient had dark-colored BMs and FOBT positive. GI, Dr. Ledesma, consulted and EGD done on 11/09 showed esophagitis, significant blood at anastomotic site, and G-tube could not be visualized. Received 2 units PRBC and 1 unit platelets and transferred to ICU. Repeat H&H showed improvement in hemoglobin from 6.7 to 12.3 and platelets from 43 to 119. Downgraded to floors and given IVF for WILLIE. On 11/13 at 10 AM, RR called for hemoptysis of 400 to 500 cc of blood and 100 cc suctioned out from G-tube. Initial vitals showed SBP at 141, HR 110, O2 92%. Repeat vitals showed SBP 90. Transfused 2 PRBCs, 1 unit FFP, infused tranexamic acid 1 g x2. Intubated for airway protection and sedated on fentanyl and propofol drips. BP decreased to 58/46 and started on Levophed and vasopressin drips. Upgraded to ICU on 11/13 for further management. In ICU, patient received an additional 2 unit pRBC, 1 unit FFP, 1 unit platelets as well as lactated ringers and albumin. Hemoglobin has been stable after transfusion, ranging between 9.7 and 10.4. Ventilator settings stable at VT 280, RR 25, PEEP 5, and FiO2 35% and sedated on fentanyl. Additionally, sunitinib held given possibility that it may contribute to hemorrhage via tumor necrosis. Remains on octreotide drip and pantoprazole IV BID. Of note, no UOP as of 11/14 but bladder scan did show 330 cc and Melissa placed with subsequent removal of 1.4 L urine. Following day, UOP 660 cc with 40 mg IV lasix. Otherwise, no significant overnight events after being upgraded to ICU. Time Spent with Patient Time attestation: Total time spent providing and/or coordinating discharge services: Exam Vital Signs Temp Pulse Resp BP Pulse Ox O2 Del Method O2 Flow Rate 97.3 F 76 25 H 115/65 97 Mechanical Ventilation 1 11/16/24 04:36 11/16/24 06:18 11/16/24 04:36 11/16/24 06:14 11/16/24 06:14 11/15/24 19:00 11/14/24 01:13 FiO2 30 11/16/24 06:14 Narrative Exam General: intubated, sedated, and mechanically ventilatd HEENT: NG and ET tubes in place with blood noted in lumens; blood noted around oral mucosa Cardiovascular: regular rate and rhythm, S1/S2 present, no murmurs appreciated Pulmonary: clear to auscultation bilaterally, no rales/rhonchi/wheezes Abdominal: soft, non-tender, non-distended, no rebound/guarding, normal bowel sounds present Musculoskeletal: 2+ pitting edema in upper and lower extremities bilaterally Skin: warm and dry, intact, no rashes Neuro: GCS 8T Discharge Plan Plan Patient Disposition: Xfer Other Facility Pt Being Transferred to: [facility] Prescriptions/Referrals Prescriptions/Med Rec: No Action allopurinol [Zyloprim] 100 mg tablet 100 mg PO DAILY Patient Comments: TAKE 1 TABLET BY MOUTH ONCE DAILY FOR HIGH URIC ACID sunitinib malate 25 mg capsule 25 mg PO DAILY furosemide 20 mg tablet Patient Comments: TAKE 1 TABLET BY MOUTH EVERY DAY Referrals: Gopal Dawson MD [Primary Care Provider] - Patient/Caregiver Discharge Instructions Print Language: Citizen Of [place] Stand Alone Forms: [employer] Award Info., Patient Portal Info Letter Discharge Order Discharge Orders: Discharge (Routine); Ordered 11/16/24 Ordered By: Rodolfo Marroquin Okniharika Quality Discharge Quality Measures VTE prophylaxis
--- NOTE | 2024-11-16 07:15 | PC.NURSE ---
[facility] called teletypewriter installer for update at 0515, requesting a discharge summary from MD to be faxed to PT placement. Dr. Vila notified via person of request and plan.
[2024-11-16 07:40] LABS: Hematocrit 29.1 % (36.0-46.0); Hemoglobin 9.9 g/dL (12.0-16.0)
[2024-11-16] MEDS: ALBUMIN HUMAN 25% IVPB 25 GM/100 ML BTL IV ×2 (08:07→19:39)
[2024-11-16] MEDS: LEVOFLOXACIN/D5W 250MG IVPB 250 MG/50 ML BAG 50 MG IV (08:07)
[2024-11-16] MEDS: fentaNYL 2,500 MCG/250 ML BAG 2,500 MCG/250 ML BAG 25 MCG IV ×2 (08:11→18:05)
[2024-11-16] MEDS: PANTOPRAZOLE INJ 40 MG VIAL IVP ×2 (08:17→22:00)
--- NOTE | 2024-11-16 08:41 | PC.CC ---
Addendum entered by Melani Rothman RN 11/16/24 09:58: Spoke to Lopez at [facility] patient placement she states she received fax Original Note: faxed draft of DC summary to [facility] patient placement at [phone], will follow up
--- NOTE | 2024-11-16 10:18 | ESPR_ITS ---
Documentation for date of: 11/16/24 Subjective Subjective Interval history: Stefani Harris is an 88-year-old Tagalog-speaking female with a PMHx of gastric cancer s/p partial gastrectomy on sunitinib malate (following [facility] oncology), chronic macrocytic anemia, GI bleed, FTT, paroxysmal A-fib (no AC) presented on evening of 11/08 for acute blood loss anemia secondary to anastomotic leak from gastric surgery (2008). Initial hemoglobin 8.5, hematocrit 27.9, MCV 123, platelets 50K, Cr 2.5, lactate 5.6, Pro-Alex 6.9. During hospital course, patient had dark-colored BMs and FOBT positive. GI, Dr. Ledesma, consulted and EGD done on 11/09 showed esophagitis, significant blood at anastomotic site, and G-tube could not be visualized. Received 2 units PRBC and 1 unit platelets and transferred to ICU. Repeat H&H showed improvement in hemoglobin from 6.7 to 12.3 and platelets from 43 to 119. Downgraded to floors and given IVF for WILLIE. On 11/13 at 10 AM, RR called for hemoptysis of 400 to 500 cc of blood and 100 cc suctioned out from G-tube. Initial vitals showed SBP at 141, HR 110, O2 92%. Repeat vitals showed SBP 90. Transfused 2 PRBCs, 1 unit FFP, infused tranexamic acid 1 g x2. Intubated for airway protection and sedated on fentanyl and propofol drips. BP decreased to 58/46 and started on Levophed and vasopressin drips. Upgraded to ICU on 11/13 for further management. 11/14: Seen and examined at bedside in ICU. No acute overnight events reported. No UOP, however bladder scan showed ~330 cc urine and will place Melissa today. ABG in AM showed pH 7.25, pCO2 53, and pO2 83 and so RR increased from 22 to 25 and Vt increased from 250 to 310 based off 8 ml/kg. Will follow-up repeat ABG. Otherwise, hold on Sunitinib as may be exacerbating/causing patient's UGIB due to side-effects. Sedated on fentanyl only and pressors taken off around midnight. 11/15: Seen and examined at bedside in ICU. No acute overnight events reported. Repeat ABG showed pH 7.48, pCO2 29, pO2 86 and vent settings changed to decrease VT from 310 to 280. Follow-up ABG showed pH 7.4, pCO2 36, and pO2 121. Spoke to transfer clerk who stated that patient has been accepted by Dr. Alfredo Ledesma, just pending bed availability. A.m. labs showed hemoglobin of 10.3 after 2 units PRBC, 1 unit FFP, and 1 unit platelets. Repeat at noon showed stable hemoglobin of 9.7 and will continue to trend monitor twice daily. Cryoprecipitate ordered today. 11/16: Seen and examined at bedside in ICU. No acute overnight events reported. Hemoglobin remained stable after receiving blood products and received additional cryoprecipitate overnight. Urine output noted to decrease since 11/15. Had 1.4 L urine output that decreased to 660 mL after 40 mg IV Lasix. Will continue to follow hemoglobin twice daily. Regarding transfer process, patient still accepted but waiting for bed. Noted to have still have significant swelling in upper and lower extremities so will give lasix and albumin and monitor UOP. Exam Vital Signs Temp Pulse Resp BP Pulse Ox O2 Del Method O2 Flow Rate 98.0 F 77 25 H 107/62 96 Mechanical Ventilation 1 11/16/24 07:00 11/16/24 10:16 11/16/24 06:23 11/16/24 10:16 11/16/24 10:16 11/15/24 19:00 11/14/24 01:13 FiO2 30 11/16/24 08:00 Narrative Exam General: intubated, sedated, and mechanically ventilatd HEENT: NG and ET tubes in place with blood noted in lumens; blood noted around oral mucosa Cardiovascular: regular rate and rhythm, S1/S2 present, no murmurs appreciated Pulmonary: clear to auscultation bilaterally, no rales/rhonchi/wheezes Abdominal: soft, non-tender, non-distended, no rebound/guarding, normal bowel sounds present Musculoskeletal: 2+ pitting edema in upper and lower extremities bilaterally Skin: warm and dry, intact, no rashes Neuro: GCS 8T Objective Labs 11/18/24 06:46 11/18/24 06:46 Labs: Laboratory Results - last 24 hr 11/15/24 11/15/24 11/16/24 12:15 18:45 02:52 WBC 3.3 L D RBC 3.47 L Hgb 9.7 L 10.1 L 10.2 L Hct 28.0 L 29.6 L 30.1 L MCV 87 MCH 29.4 MCHC 33.9 RDW Std Deviation 54.4 H Plt Count 116 L Neut % (Auto) 82 H Lymph % (Auto) 11 [place] % (Auto) 6 Eos % (Auto) 0 Baso % (Auto) 1 Neut # (Auto) 2.7 Lymph # (Auto) 0.4 L [place] # (Auto) 0.2 Eos # (Auto) 0.0 Baso # (Auto) 0.0 Immature Gran # (Auto) 0.01 H Absolute Nucleated RBC 0.05 H Immature Gran % 0 Nucleated RBC % 2 H VBG pH 7.29 L VBG pCO2 47 VBG pO2 70 H VBG O2 Sat (Diane) 93 L VBG Base Excess -4 L Sodium 139 Potassium 4.3 D Chloride 106 Carbon Dioxide 24.4 Anion Gap 9 BUN 43 H Creatinine 1.5 H Estim Creat Clear Calc 20.6 L eGFR 34 L BUN/Creatinine Ratio 29 H Glucose 68 L D Calculated Osmolality 286 Lactic Acid 2.8 H Calcium 8.4 Phosphorus 4.6 Magnesium 2.0 Albumin 2.5 L D Blood Type A Positive Antibody Screen NEGATIVE Blood Bank Wristband ID Yes 11/16/24 07:24 WBC RBC Hgb 9.9 L Hct 29.1 L MCV MCH MCHC RDW Std Deviation Plt Count Neut % (Auto) Lymph % (Auto) [place] % (Auto) Eos % (Auto) Baso % (Auto) Neut # (Auto) Lymph # (Auto) [place] # (Auto) Eos # (Auto) Baso # (Auto) Immature Gran # (Auto) Absolute Nucleated RBC Immature Gran % Nucleated RBC % VBG pH VBG pCO2 VBG pO2 VBG O2 Sat (Diane) VBG Base Excess Sodium Potassium Chloride Carbon Dioxide Anion Gap BUN Creatinine Estim Creat Clear Calc eGFR BUN/Creatinine Ratio Glucose Calculated Osmolality Lactic Acid 2.0 Calcium Phosphorus Magnesium Albumin Blood Type Antibody Screen Blood Bank Wristband ID ABG Interpretation ABG results: 11/13/24 11/14/24 11/14/24 15:02 05:13 07:53 ABG pH 7.38 7.25 L D 7.24 L ABG pCO2 41 53 H D 56 H ABG pO2 96 83 75 L ABG HCO3 24 23 24 ABG O2 Saturation 98 96 96 ABG Base Excess -1 -4 L -4 L VBG pH VBG pCO2 VBG pO2 VBG Base Excess 11/14/24 11/15/24 11/15/24 11:30 04:43 08:50 ABG pH 7.32 L 7.48 H D 7.40 ABG pCO2 43 D 29 L D 36 ABG pO2 76 L 86 121 H D ABG HCO3 22 21 22 ABG O2 Saturation 97 98 99 H ABG Base Excess -4 L -1 -3 VBG pH VBG pCO2 VBG pO2 VBG Base Excess 11/15/24 12:15 ABG pH ABG pCO2 ABG pO2 ABG HCO3 ABG O2 Saturation ABG Base Excess VBG pH 7.29 L VBG pCO2 47 VBG pO2 70 H VBG Base Excess -4 L Quality Measures Quality Measures VTE prophylaxis (SCDs) Advance care planning discussed with:: child Assessment & Plan Assessment Current Active Medications: Generic Name Dose Route Start Last Admin Trade Name Freq PRN Reason Stop Dose Admin Acetaminophen 650 mg 11/09/24 08:42 Acetaminophen 325 Mg Tablet PO 12/09/24 01:01 Q6H PRN Fever >100 Albuterol 2.5 mg 11/13/24 15:00 11/16/24 10:14 Albuterol Rt 2.5 Mg/0.5 Ml Nebu INH 12/13/24 14:59 2.5 mg Q4HRRT LAKESHA Administration Allopurinol 100 mg 11/09/24 14:00 11/09/24 14:04 Allopurinol 100 Mg Tablet PO 12/09/24 13:59 Not Given DAILY LAKESHA Sunitinib Malate 25 0 ea 11/11/24 09:30 11/14/24 10:44 Mg Capsules PO 12/11/24 09:29 Not Given DAILY LAKESHA Folic Acid 1 mg 11/12/24 09:15 11/16/24 08:31 Folic Acid 1 Mg Tablet GT 12/09/24 08:59 Not Given QDAY LAKESHA Octreotide Acetate 1,000 mcg/ 102 mls @ 5.1 mls/hr 11/13/24 11:05 11/16/24 02:15 Sodium Chloride IV 11/18/24 11:05 50 mcg/hr .Q20H LAKESHA 5.1 mls/hr Administration Protocol 50 MCG/HR Norepinephrine/Dextrose 8 mg in 250 mls @ 4.635 mls/hr 11/13/24 11:55 11/16/24 09:20 Levophed In D5w 8mg/250ml IV 12/13/24 11:54 0.01 mcg/kg/min .Q24H PRN 0.927 mls/hr PER PROTOCOL Titration Protocol 0.05 MCG/KG/MIN Vasopressin/Sodium Chloride 20 unit in 100 mls @ 9 mls/hr 11/13/24 13:27 11/16/24 07:00 Vasostrict/Ns Ivpb IV 12/13/24 13:26 0.03 unit/min .Q11H7M PRN 9 mls/hr PER PROTOCOL Titration Protocol 0.03 UNIT/MIN Fentanyl Citrate 2,500 mcg in 250 mls @ 2.5 mls/hr 11/13/24 13:39 11/16/24 09:00 Sublimaze Inj 2,500 Mcg/250 Ml Bag IV 11/18/24 13:38 250 mcg/hr .Q24H PRN 25 mls/hr PER PROTOCOL Titration Protocol 25 MCG/HR Propofol 1,000 mg in 100 mls @ 1.483 mls/hr 11/13/24 13:39 11/15/24 07:00 Diprivan Ivpb IV 12/13/24 13:38 0 mcg/kg/min .Q24H PRN 0 mls/hr PER PROTOCOL Titration Protocol 5 MCG/KG/MIN Levofloxacin/Dextrose 250 mg in 50 mls @ 50 mls/hr 11/16/24 09:00 11/16/24 08:07 Levaquin Ivpb IV 11/23/24 08:59 50 mls/hr QDAY LAKESHA Administration Pantoprazole Sodium 40 mg 11/14/24 21:00 11/16/24 08:17 Pantoprazole Inj 40 Mg Vial IVP 12/14/24 20:59 40 mg BID LAKESHA Administration Vitamin B Complex/Vit C/Folic Acid 1 tab 11/09/24 09:00 11/16/24 08:31 Vit B12/Vit C/Fa (Nephrovite) Tablet PO 12/09/24 08:59 Not Given QDAY LAKESHA Plan Stefani Harris is an 88-year-old Tagalog-speaking female with a PMHx of gastric cancer s/p partial gastrectomy on sunitinib malate (following [facility] oncology), chronic macrocytic anemia, GI bleed, FTT, paroxysmal A-fib (no AC) presented on evening of 11/08 for acute blood loss anemia secondary to anastomotic leak from gastric surgery (2008). Initial hemoglobin 8.5, hematocrit 27.9, MCV 123, platelets 50K, Cr 2.5, lactate 5.6, Pro-Alex 6.9. During hospital course, patient had dark-colored BMs and FOBT positive. GI, Dr. Ledesma, consulted and EGD done on 11/09 showed esophagitis, significant blood at anastomotic site, and G-tube could not be visualized. Received 2 units PRBC and 1 unit platelets and transferred to ICU. Repeat H&H showed improvement in hemoglobin from 6.7 to 12.3 and platelets from 43 to 119. Downgraded to floors and given IVF for WILLIE. On 11/13 at 10 AM, RR called for hemoptysis of 400 to 500 cc of blood and 100 cc suctioned out from G-tube. Initial vitals showed SBP at 141, HR 110, O2 92%. Repeat vitals showed SBP 90. Transfused 2 PRBCs, 1 unit FFP, infused tranexamic acid 1 g x2. Intubated for airway protection and sedated on fentanyl and propofol drips. BP decreased to 58/46 and started on Levophed and vasopressin drips. Upgraded to ICU on 11/13 for further management. Neurological #Sedated, on fentanyl ? RASS goal of -3 Cardiovascular #Shock, hypovolemic secondary to upper GI bleed Initial hemoglobin 8.5 that downtrended to 6.7 and received 2 units PRBC and 1 unit platelet. Repeat CBC showed hemoglobin 12.3. Repeat hemoglobin after RR 8.3 and receiving additional 2 units PRBC and 1 unit FFP. Repeat CBC showed hemoglobin stable at 8.5. Blood products: 6 units pRBC, 2 unit platelet, 2 unit FFP, 1 unit cryoprecipitate Status post 1 g tranexamic acid x 2 ? Levophed and vasopressin drips PRN ? Cryoprecipitate given overnight #Paroxysmal A-fib ? K > 4, Mg > 2 ? Hold all AC given upper GI bleed Pulmonary #Intubated and mechanically ventilated due to inability to protect airway ? Vent settings: VT 280, RR 25, PEEP 5, FiO2 30% Gastrointestinal #Upper GI bleed #Gastric cancer s/p partial gastrectomy on Sunitinib malate See cardiovascular above for additional details. CTA A/P: 6.1 cm mass in left upper abdomen (smaller compared to 05/2024, 8.0 cm), anasarca, significant bilateral pleural effusions, pneumonia and atelectasis in lower zones. ? GI recommends no EGD at this time -> transfer to tertiary center for possible gastroduodenal embolization ? Continue pantoprazole IV BID and octrotide drips (11/13-11/18) ? Accepted at [facility] but pending bed ? No chemical anticoagulation -> SCDs for DVT prophylaxis Renal #WILLIE, likely prerenal Cr on admission 2.0 in setting of acute blood loss anemia. Cr improved after IVF. Cr noted to increase from 1.2 to 1.4 after rapid response. #Lactic acidosis, in setting of shock and gastric tumor Oxygen extraction ratio: (SaO2 - SvO2)/SaO2 x 100 = 6% Low extraction ratio, indicating decreased oxygen extraction which may also indicate decreased metabolic demand (tissues needing less oxygen) or impaired tissue oxygen utilization However, likely also increased in setting of gastric tumor and will no longer trend #Anasarca Likely secondary to hypoalbuminemia due to decreased PO intake. Albumin 1.9 on 11/14 and 2.5 on 11/15 after receiving IV albumin. Will give additional albumin with lasix and monitor peripheral edema and UOP. Opting to hold PPN as patient has bleeding anastomatic site. ? Lasix 40 mg IV x1 ? Albumin 25 g IV x1 Endocrine No acute/active disease Heme/onc #Acute blood loss anemia Status post 6 units PRBC, 2 unit platelet, 2 unit FFP ? See cardiovascular above #Thrombocytopenia #Leukopenia In setting of Sunitinib for history of gastric cancer. ? Hold Sunitinib #History of microcytic anemia ? Folate 1 mg daily, received B12 injection Infectious disease No acute/active disease Hospital management: Disposition: critically ill in ICU, pending transfer to [facility] Drips: vasopressin, fentanyl, octreotide Fluids: none Diet: NPO Lines: PIV, ET tube, NG tube, right radial A-line, right IJ central line DVT prophylaxis: SCDs GI prophylaxis: pantoprazole and octreotide Melissa: placed 11/14 CODE STATUS: DNR ----- Plan discussed with attending physician Dr. Corrine Leal MD PGY-1 Internal Medicine Attending Provider Attestation/Addendum Patient seen and examined with above resident, Rodlofo Leal MD. I agree with the findings, assessment, and plan of care as documented except for any differences below. Patient continues to be hemodynamically stable with ability to wean off pressors throughout the day today. Patient remains on minimal sedation and is interactive with family intermittently but remains mostly somnolent. Patient remains on lung protective ventilation with appropriate gas exchange. Remains on Protonix twice daily as well as octreotide drip. Patient remains off of significantly with slow improvement in cell counts. Patient is pending transfer to [facility] given risk of recurrent bleeding from gastric cancer warranting potential IR embolization for stabilization versus advanced endoscopy techniques not available at our facility. In the interim we will continue to work on optimizing fluid status in the setting of her WILLIE of significant fluid load after aggressive resuscitation during the acute phase of her hemorrhagic shock. Total critical care time: I personally spent 35 minutes for review of physiologic parameters, directing plan of care throughout the day, coordination of care with other specialist, and counseling patient's family at bedside. This is exclusive of time spent teaching housestaff or performing any separate billable procedures. Patient continues to require critical care services for gastrointestinal hemorrhage with associated shock secondary to the gastric carcinoma with subsequent acute respiratory failure. Patient remains at high risk for increased morbidity and mortality warranting ongoing care and monitoring only available in the intensive care unit.
[2024-11-16] MEDS: VASOPRESSIN IN NS IVPB 20 UNIT/100 ML BAG 6 UNIT IV (10:41)
[2024-11-16] MEDS: DEXTROSE 50%-WATER INJ 50 ML SYRINGE IV ×2 (12:38→19:39)
--- NOTE | 2024-11-16 13:26 | PD.NEPHPROG ---
Documentation for date of: 11/16/24 Subjective Subjective Interval history: Informant daughter Ms. Harris is a 88-year-old Palestinian female with past medical history of gastric cancer status post partial gastrectomy on sunitinib malate (following with [facility] oncology), failure to thrive-s/p feeding tube, pancytopenia, chronic macrocytic anemia, paroxysmal A-fib (not on anticoagulation) and history of GI bleed presented to the emergency department yesterday complaining of fever and weakness and low oxygen saturation. Patient noted to be hypotensive. IV fluids were given in the emergency department. In the ER blood pressure was 70/35, heart rate 119 max temp was 101. Labs showed hemoglobin 8.5, platelets 50, sodium 149, BUN 45, creatinine 2.5, glucose 69, elevated LFTs. Pro-Alex 6.99. Flu and COVID-negative. Chest x-ray showed pneumonia. EKG sinus tach. Patient was given 2 L of fluid bolus, antibiotics Zosyn and doxycycline were initiated and subsequently transferred to telemetry. Patient currently seen in ICU on telemetry status. Renal consultation requested for worsening renal function. Home medications included allopurinol, sunitinib. 11/10/2024 patient currently seen in ICU. Resting comfortably. Alert and awake. Had a GI bleed and was transferred to ICU yesterday. Currently she seems to be stable. Not on any pressors. Blood pressure 129/99, heart rate 81. Hemoglobin 12.1, platelets 119. Sodium 149, potassium 3.6, BUN 38, creatinine 1.4, glucose 62, calcium 8, magnesium 2. Spoke to ICU team-start patient on D5W p.o. for hypoglycemia and hypernatremia. Currently on antibiotics. 11/11/2024 patient currently seen in medical floor. Moved out of ICU. Resting comfortably. Alert and awake. Blood sugar 92. Blood pressure 130/60, heart rate 80. Urine output seems to be acceptable. Edema seems to be better. Still having some shortness of breath. WBC 2.6, hemoglobin 11.2, platelets 74. Sodium 142, potassium 3.1, BUN 30, creatinine 1.2, calcium 7.7, phosphorus 2.6, magnesium 1.8. Electrolytes are all replaced. 11/16/2024 patient currently seen in ICU. Patient has profuse GI bleed-receiving blood transfusions. Dr. Ledesma on the case. Patient will be transferred to [facility] where she had her gastric cancer treated. Currently with blood products her hemoglobin stable. Labs, medications have been reviewed. Replace electrolytes. Plan of care discussed with ICU team. On ventilator. Creatinine stable at 1.5. Review of Systems Review of Systems ROS Unobtainable: due to endotracheal tube Exam Vital Signs Temp Pulse Resp BP Pulse Ox O2 Del Method O2 Flow Rate 36.7 C 72 25 H 97/53 L 95 Mechanical Ventilation 1 11/16/24 07:00 11/16/24 13:15 11/16/24 10:15 11/16/24 13:15 11/16/24 13:15 11/15/24 19:00 11/14/24 01:13 FiO2 30 11/16/24 12:00 Narrative Exam GENERAL APPEARANCE: Elderly lady currently seen in ICU. On the vent. CARDIOVASCULAR: Heart regular, no murmurs LUNGS/CHEST: Chest clear to auscultation. No rales, rhonchi, wheezing ABDOMEN: Soft, nontender, nondistended. No masses. Normal bowel sounds. Patient has a feeding tube EXTREMITIES: 2+ edema in the upper extremities SKIN: Skin exam normal without any rashes MUSCULOSKELETAL: In bed NEUROLOGICAL : intubated, sedated Objective Labs 11/17/24 04:35 11/17/24 04:35 Labs: Laboratory Results - last 24 hr 11/15/24 11/16/24 11/16/24 18:45 02:52 07:24 WBC 3.3 L D RBC 3.47 L Hgb 10.1 L 10.2 L 9.9 L Hct 29.6 L 30.1 L 29.1 L MCV 87 MCH 29.4 MCHC 33.9 RDW Std Deviation 54.4 H Plt Count 116 L Neut % (Auto) 82 H Lymph % (Auto) 11 [place] % (Auto) 6 Eos % (Auto) 0 Baso % (Auto) 1 Neut # (Auto) 2.7 Lymph # (Auto) 0.4 L [place] # (Auto) 0.2 Eos # (Auto) 0.0 Baso # (Auto) 0.0 Immature Gran # (Auto) 0.01 H Absolute Nucleated RBC 0.05 H Immature Gran % 0 Nucleated RBC % 2 H Sodium 139 Potassium 4.3 D Chloride 106 Carbon Dioxide 24.4 Anion Gap 9 BUN 43 H Creatinine 1.5 H Estim Creat Clear Calc 20.6 L eGFR 34 L BUN/Creatinine Ratio 29 H Glucose 68 L D Calculated Osmolality 286 Lactic Acid 2.0 Calcium 8.4 Phosphorus 4.6 Magnesium 2.0 Blood Type A Positive Antibody Screen NEGATIVE Blood Bank Wristband ID Yes ABG Interpretation ABG results: 11/13/24 11/14/24 11/14/24 15:02 05:13 07:53 ABG pH 7.38 7.25 L D 7.24 L ABG pCO2 41 53 H D 56 H ABG pO2 96 83 75 L ABG HCO3 24 23 24 ABG O2 Saturation 98 96 96 ABG Base Excess -1 -4 L -4 L VBG pH VBG pCO2 VBG pO2 VBG Base Excess 11/14/24 11/15/24 11/15/24 11:30 04:43 08:50 ABG pH 7.32 L 7.48 H D 7.40 ABG pCO2 43 D 29 L D 36 ABG pO2 76 L 86 121 H D ABG HCO3 22 21 22 ABG O2 Saturation 97 98 99 H ABG Base Excess -4 L -1 -3 VBG pH VBG pCO2 VBG pO2 VBG Base Excess 11/15/24 12:15 ABG pH ABG pCO2 ABG pO2 ABG HCO3 ABG O2 Saturation ABG Base Excess VBG pH 7.29 L VBG pCO2 47 VBG pO2 70 H VBG Base Excess -4 L Assessment & Plan Assessment and plan (1) Acute renal failure (ARF): Status: Acute (2) Hypernatremia: Status: Acute (3) Septic shock: Status: Acute (4) Atrial fibrillation with RVR: Status: Acute (5) Thrombocytopenia: Status: Acute (6) Acute GI bleeding: Status: Acute (7) Hypotension: Status: Acute Additional Assessment & Plan Additional Plan: (1) Acute renal failure (ARF): Status: Acute Assessment and plan: Acute renal failure secondary to prerenal azotemia. Creatinine trending down with IV fluids. Blood pressure low . On pressors. Monitor hemoglobin posttransfusion. Dr. Ledesma was consulted for GI bleed. status post endoscopy . Currently bleeding stopped. continue with fluid resuscitation, packed red blood cells. Hemoglobin stabilized today Patient will be transferred to [facility] (2) Hypernatremia: Status: Acute Assessment and plan: Sodium markedly improved to 138. Replace electrolytes. (3) Septic shock: Status: Acute Assessment and plan: Broad-spectrum antibiotics, fluids Shock seems to be resolved (4) Atrial fibrillation with RVR: Status: Acute Assessment and plan: Heart rate currently 80 (5) Thrombocytopenia: Status: Acute Assessment and plan: Platelets 112--74 (6) Acute GI bleeding: Status: Acute Assessment and plan: Dr. Ledesma on the case (7) Hypotension: Status: Acute Assessment and plan: Currently on pressors. Blood loss anemia. Quality - progress note Quality Measures Quality Measures: VTE prophylaxis Reason for Continued Stay Reason for Continued Stay: further monitoring Procedures Arterial Line Size (Gauge): 18
--- NOTE | 2024-11-16 16:57 | PC.SS ---
Update: Patient pending transfer to [facility]. Patient has been accepted pending bed availability. Patient is intubated. Feedings on hold. Patient is not receiving pressor support.
[2024-11-16] MEDS: SODIUM CHLORIDE RT SOL 0.9% 3 ML NEBU INH ×2 (19:00→22:56)
[2024-11-16 19:02] LABS: Hematocrit 29.6 % (36.0-46.0)
[2024-11-16] MEDS: FUROSEMIDE INJ 10 MG/ML 4ML VIAL 40 MG IVP (19:38)
--- NOTE | 2024-11-16 20:07 | ESPR_ITS ---
Documentation for date of: 11/16/24 Subjective Subjective Interval history: Patient evaluated hemoglobin hematocrit 10.0 and 29.6 still waiting for a bed at [facility] Exam Vital Signs Temp Pulse Resp BP Pulse Ox O2 Del Method O2 Flow Rate 98.0 F 78 25 H 118/51 L 99 Mechanical Ventilation 1 11/16/24 07:00 11/16/24 19:38 11/16/24 19:02 11/16/24 19:38 11/16/24 19:02 11/15/24 19:00 11/14/24 01:13 FiO2 30 11/16/24 19:02 Objective Labs 11/16/24 18:51 11/16/24 02:52 Labs: Laboratory Results - last 24 hr 11/16/24 11/16/24 11/16/24 02:52 07:24 18:51 WBC 3.3 L D RBC 3.47 L Hgb 10.2 L 9.9 L 10.0 L Hct 30.1 L 29.1 L 29.6 L MCV 87 MCH 29.4 MCHC 33.9 RDW Std Deviation 54.4 H Plt Count 116 L Neut % (Auto) 82 H Lymph % (Auto) 11 Antelope % (Auto) 6 Eos % (Auto) 0 Baso % (Auto) 1 Neut # (Auto) 2.7 Lymph # (Auto) 0.4 L Antelope # (Auto) 0.2 Eos # (Auto) 0.0 Baso # (Auto) 0.0 Immature Gran # (Auto) 0.01 H Absolute Nucleated RBC 0.05 H Immature Gran % 0 Nucleated RBC % 2 H Sodium 139 Potassium 4.3 D Chloride 106 Carbon Dioxide 24.4 Anion Gap 9 BUN 43 H Creatinine 1.5 H Estim Creat Clear Calc 20.6 L eGFR 34 L BUN/Creatinine Ratio 29 H Glucose 68 L D Calculated Osmolality 286 Lactic Acid 2.0 Calcium 8.4 Phosphorus 4.6 Magnesium 2.0 Blood Type A Positive Antibody Screen NEGATIVE Blood Bank Wristband ID Yes Impressions Impression: # Continuous upper GI bleed requiring blood products # respiratory failure requiring mechanical ventilation Continue current management ABG Interpretation ABG results: 11/13/24 11/14/24 11/14/24 15:02 05:13 07:53 ABG pH 7.38 7.25 L D 7.24 L ABG pCO2 41 53 H D 56 H ABG pO2 96 83 75 L ABG HCO3 24 23 24 ABG O2 Saturation 98 96 96 ABG Base Excess -1 -4 L -4 L VBG pH VBG pCO2 VBG pO2 VBG Base Excess 11/14/24 11/15/24 11/15/24 11:30 04:43 08:50 ABG pH 7.32 L 7.48 H D 7.40 ABG pCO2 43 D 29 L D 36 ABG pO2 76 L 86 121 H D ABG HCO3 22 21 22 ABG O2 Saturation 97 98 99 H ABG Base Excess -4 L -1 -3 VBG pH VBG pCO2 VBG pO2 VBG Base Excess 11/15/24 12:15 ABG pH ABG pCO2 ABG pO2 ABG HCO3 ABG O2 Saturation ABG Base Excess VBG pH 7.29 L VBG pCO2 47 VBG pO2 70 H VBG Base Excess -4 L Assessment & Plan A&P Narrative # Melena # FOBT positive # Acute posthemorrhagic anemia Plan Fiberoptic esophagogastroduodenoscopy with possible biopsy possible therapeutic intervention under intravenous moderate sedation Informed consent obtained from the senior environmental consultant and the family and this has been scheduled for today At the moment family intends to keep the PEG tube and we will reevaluate the stomach endoscopically on the inside serial CBC IV Protonix Will follow the patient Other medical problems include # Paroxysmal atrial fibrillation rate controlled not on Eliquis at this time # Gastric adenocarcinoma requiring partial gastrectomy at [facility] patient does see oncology there # Failure to thrive Thank you very much for the opportunity to participate in the care of this patient Time Spent With Patient Time: Total time spent is greater than 50% in coordination of care (as documented) at patient's floor/unit and/or counseling patient: Procedures Arterial Line Size (Gauge): 18
[2024-11-17] VITALS (106 sets, daily range): BP systolic 55–166; BP diastolic 27–92; PULSE 48–123; RESP 13–31; TEMP 36.5–36.9; O2SAT 88–100; BMI 26.6
[2024-11-17] MEDS: DEXTROSE 50%-WATER INJ 50 ML SYRINGE IV ×5 (00:43→22:23)
[2024-11-17] MEDS: DEXTROSE 10%-WATER 500 ML 50 ML IV ×2 (00:45→22:25)
[2024-11-17] MEDS: ALBUTEROL RT 2.5 MG/0.5 ML NEBU INH ×4 (02:27→15:43)
[2024-11-17] MEDS: SODIUM CHLORIDE RT SOL 0.9% 3 ML NEBU INH (02:27)
[2024-11-17] MEDS: fentaNYL 2,500 MCG/250 ML BAG 2,500 MCG/250 ML BAG 25 MCG IV (03:45)
[2024-11-17 05:13] LABS: Basophils % (Auto) 1 % (0-2.5); Eosinophils % (Auto) 0 % (0-10); Hematocrit 29.5 % (36.0-46.0); Hemoglobin 9.7 g/dL (12.0-16.0); Immature Granulocytes % (Auto) 0 % (0-0); Immature Granulocytes Auto 0.01 Thou/mm3 (0.00-0.00); Lymphocytes # (Auto) 0.5 Thou/mm3 (1.0-4.8); Lymphocytes % (Auto) 15 % (10-50); Mean Corpuscular HGB Conc 32.9 g/dl (31.0-37.0); Mean Corpuscular Hemoglobin 29.9 pg (25.0-35.0); Mean Corpuscular Volume 91 fL (80-100); Monocytes # (Auto) 0.2 Thou/mm3 (0.0-0.8); Monocytes % (Auto) 6 % (0-12); Neutrophils # (Auto) 2.7 Thou/mm3 (1.8-7.7); Neutrophils % (Auto) 77 % (37-80); Nucleated Red Blood Cell # 0.09 Thou/mm3 (0.00-0.00); Nucleated Red Blood Cell % 3 /100 WBC (0); Platelet Count 85 Thou/mm3 (140-440); RDW Standard Deviation 58.5 fL (36.4-46.3); Red Blood Count 3.24 Miln/mm3 (4.00-5.20); White Blood Count 3.5 Thou/mm3 (3.6-11.0)
[2024-11-17 05:38] LABS: Anion Gap 8 (7-16); BUN/Creatinine Ratio 27 Ratio (12-20); Blood Urea Nitrogen 43 mg/dL (9-23); Calcium 8.3 mg/dL (8.3-10.6); Carbon Dioxide 23.1 mMol/L (20.0-31.0); Chloride 108 mMol/L (98-107); Creatinine (Component) 1.6 mg/dL (0.6-1.3); Estimated Creatinine Clearance 18.9 mL/min (>60); Glucose 74 mg/dL (74-106); Magnesium 1.9 mg/dL (1.6-2.6); Osmolality,Calculated 287 (275-295); Potassium 4.2 mMol/L (3.4-5.1); Sodium 139 mMol/L (136-145); eGFR 31 See Note
[2024-11-17 07:26] LABS: Hematocrit 31.1 % (36.0-46.0); Hemoglobin 10.3 g/dL (12.0-16.0)
[2024-11-17] MEDS: PANTOPRAZOLE INJ 40 MG VIAL IVP ×2 (08:51→20:45)
[2024-11-17] MEDS: VIT B12/Vit C/FA (Nephrovite) TABLET 1 TAB PO (08:53)
[2024-11-17] MEDS: FOLIC ACID 1 MG TABLET GT (08:53)
[2024-11-17] MEDS: Magnesium Sulfate 2 GM Ivpb 2 GM/50 ML BAG IV (08:54)
[2024-11-17] MEDS: LEVOFLOXACIN/D5W 250MG IVPB 250 MG/50 ML BAG 50 MG IV (09:02)
--- NOTE | 2024-11-17 10:45 | PD.RESPRO ---
Documentation for date of: 11/17/24 Subjective Subjective Interval history: Stefani Harris is an 88-year-old Tagalog-speaking female with a PMHx of gastric cancer s/p partial gastrectomy on sunitinib malate (following [facility] oncology), chronic macrocytic anemia, GI bleed, FTT, paroxysmal A-fib (no AC) presented on evening of 11/08 for acute blood loss anemia secondary to anastomotic leak from gastric surgery (2008). Initial hemoglobin 8.5, hematocrit 27.9, MCV 123, platelets 50K, Cr 2.5, lactate 5.6, Pro-Alex 6.9. During hospital course, patient had dark-colored BMs and FOBT positive. GI, Dr. Ledesma, consulted and EGD done on 11/09 showed esophagitis, significant blood at anastomotic site, and G-tube could not be visualized. Received 2 units PRBC and 1 unit platelets and transferred to ICU. Repeat H&H showed improvement in hemoglobin from 6.7 to 12.3 and platelets from 43 to 119. Downgraded to floors and given IVF for WILLIE. On 11/13 at 10 AM, RR called for hemoptysis of 400 to 500 cc of blood and 100 cc suctioned out from G-tube. Initial vitals showed SBP at 141, HR 110, O2 92%. Repeat vitals showed SBP 90. Transfused 2 PRBCs, 1 unit FFP, infused tranexamic acid 1 g x2. Intubated for airway protection and sedated on fentanyl and propofol drips. BP decreased to 58/46 and started on Levophed and vasopressin drips. Upgraded to ICU on 11/13 for further management. 11/14: Seen and examined at bedside in ICU. No acute overnight events reported. No UOP, however bladder scan showed ~330 cc urine and will place Melissa today. ABG in AM showed pH 7.25, pCO2 53, and pO2 83 and so RR increased from 22 to 25 and Vt increased from 250 to 310 based off 8 ml/kg. Will follow-up repeat ABG. Otherwise, hold on Sunitinib as may be exacerbating/causing patient's UGIB due to side-effects. Sedated on fentanyl only and pressors taken off around midnight. 11/15: Seen and examined at bedside in ICU. No acute overnight events reported. Repeat ABG showed pH 7.48, pCO2 29, pO2 86 and vent settings changed to decrease VT from 310 to 280. Follow-up ABG showed pH 7.4, pCO2 36, and pO2 121. Spoke to electric transfer operator who stated that patient has been accepted by Dr. Alfredo Ledesma, just pending bed availability. A.m. labs showed hemoglobin of 10.3 after 2 units PRBC, 1 unit FFP, and 1 unit platelets. Repeat at noon showed stable hemoglobin of 9.7 and will continue to trend monitor twice daily. Cryoprecipitate ordered today. 11/16: Seen and examined at bedside in ICU. No acute overnight events reported. Hemoglobin remained stable after receiving blood products and received additional cryoprecipitate overnight. Urine output noted to decrease since 11/15. Had 1.4 L urine output that decreased to 660 mL after 40 mg IV Lasix. Will continue to follow hemoglobin twice daily. Regarding transfer process, patient still accepted but waiting for bed. Noted to have still have significant swelling in upper and lower extremities so will give lasix and albumin and monitor UOP. 11/17: Seen and examined at bedside. Overnight, 200ml of blood suctioned from NG tube. As of now, transfer is still pending, but waiting for bed at [facility]. Patient given another dose of Lasix and Albumin. Will continue to monitor UOP and update family about transfer process and next steps. Will also try a sedation holiday and see how patient tolerates. Exam Vital Signs Temp Pulse Resp BP Pulse Ox O2 Del Method O2 Flow Rate 97.7 F 66 25 H 88/44 L 100 Mechanical Ventilation 1 11/17/24 04:01 11/17/24 06:33 11/17/24 06:33 11/17/24 06:33 11/17/24 06:33 11/15/24 19:00 11/14/24 01:13 FiO2 30 11/17/24 06:33 Narrative Exam GENERAL APPEARANCE: Elderly lady currently seen in ICU. On the vent. Pressure ulcer seen in posterior head. CARDIOVASCULAR: Heart regular, no murmurs LUNGS/CHEST: Chest clear to auscultation. No rales, rhonchi, wheezing ABDOMEN: Soft, nontender, nondistended. No masses. Normal bowel sounds. Patient has a feeding tube EXTREMITIES: 2+ edema in the upper extremities SKIN: Skin exam normal without any rashes MUSCULOSKELETAL: In bed NEUROLOGICAL : intubated, sedated Objective Labs 11/17/24 07:00 11/17/24 04:35 Labs: Laboratory Results - last 24 hr 11/16/24 11/17/24 11/17/24 18:51 04:35 07:00 WBC 3.5 L RBC 3.24 L Hgb 10.0 L 9.7 L 10.3 L Hct 29.6 L 29.5 L 31.1 L MCV 91 MCH 29.9 MCHC 32.9 RDW Std Deviation 58.5 H Plt Count 85 L D Neut % (Auto) 77 Lymph % (Auto) 15 Sebastian % (Auto) 6 Eos % (Auto) 0 Baso % (Auto) 1 Neut # (Auto) 2.7 Lymph # (Auto) 0.5 L Sebastian # (Auto) 0.2 Eos # (Auto) 0.0 Baso # (Auto) 0.0 Immature Gran # (Auto) 0.01 H Absolute Nucleated RBC 0.09 H Immature Gran % 0 Nucleated RBC % 3 H Sodium 139 Potassium 4.2 Chloride 108 H Carbon Dioxide 23.1 Anion Gap 8 BUN 43 H Creatinine 1.6 H Estim Creat Clear Calc 18.9 L eGFR 31 L BUN/Creatinine Ratio 27 H Glucose 74 Calculated Osmolality 287 Calcium 8.3 Phosphorus 5.0 Magnesium 1.9 ABG Interpretation ABG results: 11/13/24 11/14/24 11/14/24 15:02 05:13 07:53 ABG pH 7.38 7.25 L D 7.24 L ABG pCO2 41 53 H D 56 H ABG pO2 96 83 75 L ABG HCO3 24 23 24 ABG O2 Saturation 98 96 96 ABG Base Excess -1 -4 L -4 L VBG pH VBG pCO2 VBG pO2 VBG Base Excess 11/14/24 11/15/24 11/15/24 11:30 04:43 08:50 ABG pH 7.32 L 7.48 H D 7.40 ABG pCO2 43 D 29 L D 36 ABG pO2 76 L 86 121 H D ABG HCO3 22 21 22 ABG O2 Saturation 97 98 99 H ABG Base Excess -4 L -1 -3 VBG pH VBG pCO2 VBG pO2 VBG Base Excess 11/15/24 12:15 ABG pH ABG pCO2 ABG pO2 ABG HCO3 ABG O2 Saturation ABG Base Excess VBG pH 7.29 L VBG pCO2 47 VBG pO2 70 H VBG Base Excess -4 L Quality Measures Quality Measures VTE prophylaxis (SCDs) Advance care planning discussed with:: child Assessment & Plan Assessment Current Active Medications: Generic Name Dose Route Start Last Admin Trade Name Freq PRN Reason Stop Dose Admin Acetaminophen 650 mg 11/09/24 08:42 Acetaminophen 325 Mg Tablet PO 12/09/24 01:01 Q6H PRN Fever >100 Albuterol 2.5 mg 11/13/24 15:00 11/17/24 06:32 Albuterol Rt 2.5 Mg/0.5 Ml Nebu INH 12/13/24 14:59 2.5 mg Q4HRRT LAKESHA Administration Allopurinol 100 mg 11/09/24 14:00 11/09/24 14:04 Allopurinol 100 Mg Tablet PO 12/09/24 13:59 Not Given DAILY LAKESHA Sunitinib Malate 25 0 ea 11/11/24 09:30 11/14/24 10:44 Mg Capsules PO 12/11/24 09:29 Not Given DAILY LAKESHA Folic Acid 1 mg 11/12/24 09:15 11/17/24 08:53 Folic Acid 1 Mg Tablet GT 12/09/24 08:59 1 mg QDAY LAKESHA Administration Octreotide Acetate 1,000 mcg/ 102 mls @ 5.1 mls/hr 11/13/24 11:05 11/16/24 19:12 Sodium Chloride IV 11/18/24 11:05 50 mcg/hr .Q20H LAKESHA 5.1 mls/hr Administration Protocol 50 MCG/HR Norepinephrine/Dextrose 8 mg in 250 mls @ 4.635 mls/hr 11/13/24 11:55 11/17/24 07:00 Levophed In D5w 8mg/250ml IV 12/13/24 11:54 0.17 mcg/kg/min .Q24H PRN 15.76 mls/hr PER PROTOCOL Titration Protocol 0.05 MCG/KG/MIN Vasopressin/Sodium Chloride 20 unit in 100 mls @ 9 mls/hr 11/13/24 13:27 11/16/24 12:41 Vasostrict/Ns Ivpb IV 12/13/24 13:26 0 unit/min .Q11H7M PRN 0 mls/hr PER PROTOCOL Titration Protocol 0.03 UNIT/MIN Fentanyl Citrate 2,500 mcg in 250 mls @ 2.5 mls/hr 11/13/24 13:39 11/17/24 08:00 Sublimaze Inj 2,500 Mcg/250 Ml Bag IV 11/18/24 13:38 250 mcg/hr .Q24H PRN 25 mls/hr PER PROTOCOL Titration Protocol 25 MCG/HR Propofol 1,000 mg in 100 mls @ 1.483 mls/hr 11/13/24 13:39 11/15/24 07:00 Diprivan Ivpb IV 12/13/24 13:38 0 mcg/kg/min .Q24H PRN 0 mls/hr PER PROTOCOL Titration Protocol 5 MCG/KG/MIN Levofloxacin/Dextrose 250 mg in 50 mls @ 50 mls/hr 11/16/24 09:00 11/17/24 09:02 Levaquin Ivpb IV 11/23/24 08:59 50 mls/hr QDAY LAKESHA Administration Albumin Human 25 gm in 100 mls @ 100 mls/hr 11/17/24 10:34 Albuminar-25 Ivpb IV 11/17/24 11:33 X1 ONE Pantoprazole Sodium 40 mg 11/14/24 21:00 11/17/24 08:51 Pantoprazole Inj 40 Mg Vial IVP 12/14/24 20:59 40 mg BID LAKESHA Administration Sodium Chloride 3 ml 11/16/24 18:21 11/17/24 02:27 Sodium Chloride Rt Iman 0.9% 3 Ml Nebu INH 12/16/24 18:20 3 ml Q4HR PRN Administration admin w/ albuterol fo dilution Vitamin B Complex/Vit C/Folic Acid 1 tab 11/09/24 09:00 11/17/24 08:53 Vit B12/Vit C/Fa (Nephrovite) Tablet PO 12/09/24 08:59 1 tab QDAY LAKESHA Administration Plan Stefani Harris is an 88-year-old Tagalog-speaking female with a PMHx of gastric cancer s/p partial gastrectomy on sunitinib malate (following [facility] oncology), chronic macrocytic anemia, GI bleed, FTT, paroxysmal A-fib (no AC) presented on evening of 11/08 for acute blood loss anemia secondary to anastomotic leak from gastric surgery (2008). Initial hemoglobin 8.5, hematocrit 27.9, MCV 123, platelets 50K, Cr 2.5, lactate 5.6, Pro-Alex 6.9. During hospital course, patient had dark-colored BMs and FOBT positive. GI, Dr. Ledesma, consulted and EGD done on 11/09 showed esophagitis, significant blood at anastomotic site, and G-tube could not be visualized. Received 2 units PRBC and 1 unit platelets and transferred to ICU. Repeat H&H showed improvement in hemoglobin from 6.7 to 12.3 and platelets from 43 to 119. Downgraded to floors and given IVF for WILLIE. On 11/13 at 10 AM, RR called for hemoptysis of 400 to 500 cc of blood and 100 cc suctioned out from G-tube. Initial vitals showed SBP at 141, HR 110, O2 92%. Repeat vitals showed SBP 90. Transfused 2 PRBCs, 1 unit FFP, infused tranexamic acid 1 g x2. Intubated for airway protection and sedated on fentanyl and propofol drips. BP decreased to 58/46 and started on Levophed and vasopressin drips. Upgraded to ICU on 11/13 for further management. Neurological #Sedated, on fentanyl ? RASS goal of -3 - Will try a sedation holiday today, and see how patient tolerates - Will turn on Fentanyl in the evening Cardiovascular #Shock, hypovolemic secondary to upper GI bleed Initial hemoglobin 8.5 that downtrended to 6.7 and received 2 units PRBC and 1 unit platelet. Repeat CBC showed hemoglobin 12.3. Repeat hemoglobin after RR 8.3 and receiving additional 2 units PRBC and 1 unit FFP. Repeat CBC showed hemoglobin stable at 8.5. Blood products: 6 units pRBC, 2 unit platelet, 2 unit FFP, 1 unit cryoprecipitate Status post 1 g tranexamic acid x 2 ? Levophed and vasopressin drips started back on today at low dose, wean down as tolerated to titrate > 65 ? Cryoprecipitate given overnight #Paroxysmal A-fib ? K > 4, Mg > 2 ? Hold all AC given upper GI bleed Pulmonary #Intubated and mechanically ventilated due to inability to protect airway ? Vent settings: VT 280, RR 25, PEEP 5, FiO2 30% Gastrointestinal #Upper GI bleed #Gastric cancer s/p partial gastrectomy on Sunitinib malate See cardiovascular above for additional details. CTA A/P: 6.1 cm mass in left upper abdomen (smaller compared to 05/2024, 8.0 cm), anasarca, significant bilateral pleural effusions, pneumonia and atelectasis in lower zones. ? GI recommends no EGD at this time -> transfer to tertiary center for possible gastroduodenal embolization ? Continue pantoprazole IV BID and octrotide drips (11/13-11/18) ? Accepted at [facility] but pending bed ? No chemical anticoagulation -> SCDs for DVT prophylaxis Renal #WILLIE, likely prerenal Cr on admission 2.0 in setting of acute blood loss anemia. Cr improved after IVF. Cr noted to increase from 1.2 to 1.6 #Lactic acidosis, in setting of shock and gastric tumor Oxygen extraction ratio: (SaO2 - SvO2)/SaO2 x 100 = 6% Low extraction ratio, indicating decreased oxygen extraction which may also indicate decreased metabolic demand (tissues needing less oxygen) or impaired tissue oxygen utilization However, likely also increased in setting of gastric tumor and will no longer trend #Anasarca Likely secondary to hypoalbuminemia due to decreased PO intake. Albumin 1.9 on 11/14 and 2.5 on 11/15 after receiving IV albumin. Will give additional albumin with lasix and monitor peripheral edema and UOP. Opting to hold PPN as patient has bleeding anastomatic site. ? Lasix 40 mg IV x2 ? Albumin 25 g IV x2 Endocrine No acute/active disease Heme/onc #Acute blood loss anemia Status post 6 units PRBC, 2 unit platelet, 2 unit FFP ? See cardiovascular above #Thrombocytopenia #Leukopenia In setting of Sunitinib for history of gastric cancer. ? Hold Sunitinib #History of microcytic anemia ? Folate 1 mg daily, received B12 injection Infectious disease No acute/active disease Hospital management: Disposition: critically ill in ICU, pending transfer to [facility] Drips: vasopressin, fentanyl, octreotide Fluids: none Diet: NPO Lines: PIV, ET tube, NG tube, right radial A-line, right IJ central line DVT prophylaxis: SCDs GI prophylaxis: pantoprazole and octreotide Melissa: placed 11/14 CODE STATUS: DNR ----- Plan discussed with attending physician Dr. Corrine Leal MD PGY-1 Internal Medicine Attending Provider Attestation/Addendum Patient seen and examined with above resident, Dana Acuña MD. I agree with the findings, assessment, and plan of care as documented except for any differences below. Patient remained stable with episodic output from NG tube on low intermittent wall suction with mostly dark blood. Hemoglobin remained stable without need for repeat transfusion at this point. She intermittently requires low-dose vasopressor especially with deeper sedation. Will plan for spontaneous awake trial and SBT today as tolerated. Will continue with potential transfer for management of upper GI bleed in setting of gastric cancer. At this point remains hemodynamically stable but may still warrant advanced endoscopy for more definitive therapy as she has a high risk for repeat bleeding. It is a significant bleed nonetheless would also warrant potential IR embolization of the gastric artery to stabilize and permit time for definitive therapy as well. She is still awaiting bed placement at [facility] for transport. Will minimize agents that she requires for transport to facilitate a safe airlift to the receiving facility. Patient's family remains hopeful for continued medical intervention despite repeated explanations about overall prognosis being guarded in the setting of her recurrent gastric cancer with current discontinuation of sunitinib. Patient appropriately has been made DNR and this may complicate our ability to successfully extubate if receiving center declines patient at this point given stabilization. She also notably has had intermittently low urine output though responding to challenge with albumin/Lasix. Nephrology now involved and remain available should the need further hemodialysis arise still at this point she is being appropriately managed with diuretics and volume overload seems to be improving. There are no significant acid-base or electrolyte abnormalities warranting dialysis, overall complete SAT to determine if there is any significant component of encephalopathy that may be related to renal dysfunction though this is less likely given the level of the uremia is not that high. Total critical care time: I personally spent 35 minutes for review of physiologic parameters, directing plan of care throughout the day, coordination of care with other specialist, and counseling patient's family at bedside. This is exclusive of time spent teaching housestaff or performing any separate billable procedures. Patient continues to require critical care services for hemorrhagic shock secondary to gastric cancer complicated by acute respiratory failure and acute kidney injury. She remains at high risk for further morbidity and mortality warranting close monitoring and care only available in the intensive care unit.
[2024-11-17] MEDS: FUROSEMIDE INJ 10 MG/ML 4ML VIAL 40 MG IVP (12:14)
[2024-11-17] MEDS: ALBUMIN HUMAN 25% IVPB 25 GM/100 ML BTL IV (12:14)
--- NOTE | 2024-11-17 13:48 | ESPR_ITS ---
Documentation for date of: 11/17/24 Subjective Subjective Interval history: Informant daughter Ms. 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 Patient noted to be hypotensive. IV fluids were given in the emergency department. In the ER blood pressure was 70/35, heart rate 119 max temp was 101. Labs showed hemoglobin 8.5, platelets 50, sodium 149, BUN 45, creatinine 2.5, glucose 69, elevated LFTs. Pro-Alex 6.99. Flu and COVID-negative. Chest x-ray showed pneumonia. EKG sinus tach. Patient was given 2 L of fluid bolus, antibiotics Zosyn and doxycycline were initiated and subsequently transferred to telemetry. Patient currently seen in ICU on telemetry status. Renal consultation requested for worsening renal function. Home medications included allopurinol, sunitinib. 11/10/2024 patient currently seen in ICU. Resting comfortably. Alert and awake. Had a GI bleed and was transferred to ICU yesterday. Currently she seems to be stable. Not on any pressors. Blood pressure 129/99, heart rate 81. Hemoglobin 12.1, platelets 119. Sodium 149, potassium 3.6, BUN 38, creatinine 1.4, glucose 62, calcium 8, magnesium 2. Spoke to ICU team-start patient on D5W p.o. for hypoglycemia and hypernatremia. Currently on antibiotics. 11/11/2024 patient currently seen in medical floor. Moved out of ICU. Resting comfortably. Alert and awake. Blood sugar 92. Blood pressure 130/60, heart rate 80. Urine output seems to be acceptable. Edema seems to be better. Still having some shortness of breath. WBC 2.6, hemoglobin 11.2, platelets 74. Sodium 142, potassium 3.1, BUN 30, creatinine 1.2, calcium 7.7, phosphorus 2.6, magnesium 1.8. Electrolytes are all replaced. 11/17/2024 patient currently seen in ICU. Patient has profuse GI bleed-receiving blood transfusions. Dr. Ledesma on the case. Patient will be transferred to [facility] where she had her gastric cancer treated. Patient again started to bleed. Blood products were given. Labs, medications have been reviewed. Replace electrolytes. Plan of care discussed with ICU team. On ventilator. Creatinine stable at 1.6 noted significant edema. Will give Lasix and albumin.. Review of Systems Review of Systems ROS Unobtainable: due to endotracheal tube Exam Vital Signs Temp Pulse Resp BP Pulse Ox O2 Del Method O2 Flow Rate 36.6 C 97 28 H 120/64 94 L Mechanical Ventilation 1 11/17/24 12:00 11/17/24 12:15 11/17/24 11:11 11/17/24 12:15 11/17/24 12:15 11/15/24 19:00 11/14/24 01:13 FiO2 30 11/17/24 12:00 Narrative Exam GENERAL APPEARANCE: Elderly lady currently seen in ICU. On the vent. CARDIOVASCULAR: Heart regular, no murmurs LUNGS/CHEST: Chest clear to auscultation. No rales, rhonchi, wheezing ABDOMEN: Soft, nontender, nondistended. No masses. Normal bowel sounds. Patient has a feeding tube EXTREMITIES: 2+ edema in the upper extremities SKIN: Skin exam normal without any rashes MUSCULOSKELETAL: In bed NEUROLOGICAL : intubated, sedated Objective Labs 11/18/24 02:18 11/17/24 04:35 Labs: Laboratory Results - last 24 hr 11/16/24 11/17/24 11/17/24 18:51 04:35 07:00 WBC 3.5 L RBC 3.24 L Hgb 10.0 L 9.7 L 10.3 L Hct 29.6 L 29.5 L 31.1 L MCV 91 MCH 29.9 MCHC 32.9 RDW Std Deviation 58.5 H Plt Count 85 L D Neut % (Auto) 77 Lymph % (Auto) 15 [place] % (Auto) 6 Eos % (Auto) 0 Baso % (Auto) 1 Neut # (Auto) 2.7 Lymph # (Auto) 0.5 L [place] # (Auto) 0.2 Eos # (Auto) 0.0 Baso # (Auto) 0.0 Immature Gran # (Auto) 0.01 H Absolute Nucleated RBC 0.09 H Immature Gran % 0 Nucleated RBC % 3 H Sodium 139 Potassium 4.2 Chloride 108 H Carbon Dioxide 23.1 Anion Gap 8 BUN 43 H Creatinine 1.6 H Estim Creat Clear Calc 18.9 L eGFR 31 L BUN/Creatinine Ratio 27 H Glucose 74 Calculated Osmolality 287 Calcium 8.3 Phosphorus 5.0 Magnesium 1.9 ABG Interpretation ABG results: 11/13/24 11/14/24 11/14/24 15:02 05:13 07:53 ABG pH 7.38 7.25 L D 7.24 L ABG pCO2 41 53 H D 56 H ABG pO2 96 83 75 L ABG HCO3 24 23 24 ABG O2 Saturation 98 96 96 ABG Base Excess -1 -4 L -4 L VBG pH VBG pCO2 VBG pO2 VBG Base Excess 11/14/24 11/15/24 11/15/24 11:30 04:43 08:50 ABG pH 7.32 L 7.48 H D 7.40 ABG pCO2 43 D 29 L D 36 ABG pO2 76 L 86 121 H D ABG HCO3 22 21 22 ABG O2 Saturation 97 98 99 H ABG Base Excess -4 L -1 -3 VBG pH VBG pCO2 VBG pO2 VBG Base Excess 11/15/24 12:15 ABG pH ABG pCO2 ABG pO2 ABG HCO3 ABG O2 Saturation ABG Base Excess VBG pH 7.29 L VBG pCO2 47 VBG pO2 70 H VBG Base Excess -4 L Assessment & Plan Assessment and plan (1) Acute renal failure (ARF): Status: Acute (2) Hypernatremia: Status: Acute (3) Septic shock: Status: Acute (4) Atrial fibrillation with RVR: Status: Acute (5) Thrombocytopenia: Status: Acute (6) Acute GI bleeding: Status: Acute (7) Hypotension: Status: Acute Additional Assessment & Plan Additional Plan: (1) Acute renal failure (ARF): Status: Acute Assessment and plan: Acute renal failure secondary to prerenal azotemia. Creatinine stable at 1.6. Blood pressure low . On pressors. Monitor hemoglobin posttransfusion. Dr. Ledesma was consulted for GI bleed. status post endoscopy . Patient again started to bleed. Continue with fluid resuscitation, packed red blood cells. Noted significant edema-diuretics given Patient will be transferred to [facility] once bed available. (2) Hypernatremia: Status: Acute Assessment and plan: Sodium markedly improved to 138. Replace electrolytes. (3) Septic shock: Status: Acute Assessment and plan: Broad-spectrum antibiotics, fluids Shock seems to be resolved (4) Atrial fibrillation with RVR: Status: Acute Assessment and plan: Heart rate currently 80 (5) Thrombocytopenia: Status: Acute Assessment and plan: Platelets 112--74 (6) Acute GI bleeding: Status: Acute Assessment and plan: Dr. Ledesma on the case (7) Hypotension: Status: Acute Assessment and plan: Currently on pressors. Blood loss anemia. Quality - progress note Quality Measures Quality Measures: VTE prophylaxis Reason for Continued Stay Reason for Continued Stay: further monitoring Procedures Arterial Line Size (Gauge): 18
--- NOTE | 2024-11-17 14:23 | PC.CM ---
1000 I spoke to Patient placement at [facility] and I spoke to Eve. She states patient has been accepted medically but we are waiting on an open bed. I updated patient's family and the charge nurse.
--- NOTE | 2024-11-17 14:58 | PC.SS ---
Update: Patient remains intubated. On sedation holiday. Patient is off pressor support. Feedings on hold. Hemoglobin is stable. Transfer remains pending. Awaiting open bed availability.
[2024-11-17] MEDS: fentaNYL CIT INJ 50 mCg/ML AMP 2ML IVP ×2 (15:10→16:36)
[2024-11-17] MEDS: OCTREOTIDE ACET INJ 1,000 MCG in SODIUM CHLORIDE 0.9% 100 ML 5.1 MCG IV (17:18)
[2024-11-17] MEDS: fentaNYL 2,500 MCG/250 ML BAG 2,500 MCG/250 ML BAG IV (17:19)
[2024-11-17] MEDS: GLYCOPYRROLATE INJ 0.2 MG/ML VIAL IV (18:48)
[2024-11-17] MEDS: VASOPRESSIN IN NS IVPB 20 UNIT/100 ML BAG 9 UNIT IV (18:51)
[2024-11-17] MEDS: SODIUM CHLORIDE 0.9% 1000 ML 1,000 ML 999 ML IV (19:03)
[2024-11-17 19:21] LABS: Hematocrit 23.6 % (36.0-46.0); Hemoglobin 7.8 g/dL (12.0-16.0)
--- NOTE | 2024-11-17 20:14 | ESPR_ITS ---
Documentation for date of: 11/17/24 Subjective Subjective Interval history: Patient remains intubated drop in hemoglobin hematocrit from 10.3-7.8 still waiting for a bed at [facility] Exam Vital Signs Temp Pulse Resp BP Pulse Ox O2 Del Method O2 Flow Rate 97.9 F 120 H 26 H 138/65 H 92 L Mechanical Ventilation 1 11/17/24 16:00 11/17/24 19:04 11/17/24 15:44 11/17/24 19:04 11/17/24 19:04 11/15/24 19:00 11/14/24 01:13 FiO2 30 11/17/24 19:04 Objective Labs 11/17/24 19:06 11/17/24 04:35 Labs: Laboratory Results - last 24 hr 11/17/24 11/17/24 11/17/24 04:35 07:00 19:06 WBC 3.5 L RBC 3.24 L Hgb 9.7 L 10.3 L 7.8 L D Hct 29.5 L 31.1 L 23.6 L MCV 91 MCH 29.9 MCHC 32.9 RDW Std Deviation 58.5 H Plt Count 85 L D Neut % (Auto) 77 Lymph % (Auto) 15 [place] % (Auto) 6 Eos % (Auto) 0 Baso % (Auto) 1 Neut # (Auto) 2.7 Lymph # (Auto) 0.5 L [place] # (Auto) 0.2 Eos # (Auto) 0.0 Baso # (Auto) 0.0 Immature Gran # (Auto) 0.01 H Absolute Nucleated RBC 0.09 H Immature Gran % 0 Nucleated RBC % 3 H Sodium 139 Potassium 4.2 Chloride 108 H Carbon Dioxide 23.1 Anion Gap 8 BUN 43 H Creatinine 1.6 H Estim Creat Clear Calc 18.9 L eGFR 31 L BUN/Creatinine Ratio 27 H Glucose 74 Calculated Osmolality 287 Calcium 8.3 Phosphorus 5.0 Magnesium 1.9 Impressions Impression: Upper GI bleed posthemorrhagic anemia mechanically ventilated continue supportive care waiting bed at a tertiary center ABG Interpretation ABG results: 11/13/24 11/14/24 11/14/24 15:02 05:13 07:53 ABG pH 7.38 7.25 L D 7.24 L ABG pCO2 41 53 H D 56 H ABG pO2 96 83 75 L ABG HCO3 24 23 24 ABG O2 Saturation 98 96 96 ABG Base Excess -1 -4 L -4 L VBG pH VBG pCO2 VBG pO2 VBG Base Excess 11/14/24 11/15/24 11/15/24 11:30 04:43 08:50 ABG pH 7.32 L 7.48 H D 7.40 ABG pCO2 43 D 29 L D 36 ABG pO2 76 L 86 121 H D ABG HCO3 22 21 22 ABG O2 Saturation 97 98 99 H ABG Base Excess -4 L -1 -3 VBG pH VBG pCO2 VBG pO2 VBG Base Excess 11/15/24 12:15 ABG pH ABG pCO2 ABG pO2 ABG HCO3 ABG O2 Saturation ABG Base Excess VBG pH 7.29 L VBG pCO2 47 VBG pO2 70 H VBG Base Excess -4 L Assessment & Plan A&P Narrative # Melena # FOBT positive # Acute posthemorrhagic anemia Plan Fiberoptic esophagogastroduodenoscopy with possible biopsy possible therapeutic intervention under intravenous moderate sedation Informed consent obtained from the waist presser and the family and this has been scheduled for today At the moment family intends to keep the PEG tube and we will reevaluate the stomach endoscopically on the inside serial CBC IV Protonix Will follow the patient Other medical problems include # Paroxysmal atrial fibrillation rate controlled not on Eliquis at this time # Gastric adenocarcinoma requiring partial gastrectomy at [facility] patient does see oncology there # Failure to thrive Thank you very much for the opportunity to participate in the care of this patient Time Spent With Patient Time: Total time spent is greater than 50% in coordination of care (as documented) at patient's floor/unit and/or counseling patient: Procedures Arterial Line Size (Gauge): 18
[2024-11-18] VITALS (66 sets, daily range): BP systolic 75–230; BP diastolic 40–227; PULSE 85–124; RESP 0–28; TEMP 36.7–36.8; O2SAT 95–98
[2024-11-18 02:29] LABS: Hematocrit 34.9 % (36.0-46.0); Hemoglobin 11.8 g/dL (12.0-16.0)
--- NOTE | 2024-11-18 03:55 | ESDS_ITS ---
Planned Discharge Date 11/18/24 DS: Providers Provider Date of admission: 11/09/24 01:02 Primary care physician: Gopal Dawson MD Admitting Provider: Taqueria Kong MD Attending Provider on Admission: Maldonado Castle MD Consults: 11/09/24 08:37 Consult to Gastroenterology Stat Comment: fobt positive Consulting Provider: Kimo Ledesma 11/09/24 08:40 Consult to Gastroenterology Routine Comment: FOBT + Consulting Provider: Kimo Ledesma 11/09/24 10:45 Consult to Nephrology Routine Comment: bhavana and hypernatremia Consulting Provider: Shayy Hyman 11/09/24 11:24 Referral Speech Therapy Routine Comment: 11/09/24 13:51 Referral Registered Dietitian Routine Comment: 11/09/24 20:12 Consult to General Surgery Urgent Comment: GI bleed Consulting Provider: Dawit Alejandra 11/11/24 06:48 Referral Wound Care Routine Comment: 11/11/24 13:52 Referral Hospice Routine Comment: Want to talk about options 11/12/24 09:10 Referral Physical Therapy Urgent Comment: Physician Instructions: Instructions: 4 d/c pls 11/13/24 13:30 Referral - Certified Nurse Aide Stat Service Needed for Transfer: Interventional Radiology Addl Comments:: embolization of the gastric artery Attending Provider on DC: Ba Vila MD Discharging Provider: Ba Vila MD DS: Diagnosis Problem List Completed Was Problem List Reviewed/Reconciled?: Yes Hospital Course Hospital Course Hospital course: Stefani Harris is an 88-year-old Tagalog-speaking female with a PMHx of gastric cancer s/p partial gastrectomy on sunitinib malate (following [facility] oncology), chronic macrocytic anemia, GI bleed, FTT, paroxysmal A-fib (no AC) presented on evening of 11/08 for acute blood loss anemia secondary to anastomotic leak from gastric surgery (2008). Initial hemoglobin 8.5, hematocrit 27.9, MCV 123, platelets 50K, Cr 2.5, lactate 5.6, Pro-Alex 6.9. During hospital course, patient had dark-colored BMs and FOBT positive. GI, Dr. Ledesma, consulted and EGD done on 11/09 showed esophagitis, significant blood at anastomotic site, and G-tube could not be visualized. During this hospitalization patient has received a total of 6 PRBCs, 3 platelets, 2 FFP's, and 1 cryoprecipitate. Patient continues on pressors with Levophed and vasopressin for blood pressure support. Patient is intubated and mechanically ventilated and sedated with fentanyl drip. Patient also on octreotide drip. Patient continues to have dark tarry stools likely secondary from upper GI bleed. Ventilator settings stable at VT 280, RR 25, PEEP 5, and FiO2 35% and sed ated on fentanyl. Additionally, sunitinib held given possibility that it may contribute to hemorrhage via tumor necrosis. Remains on octreotide drip and pantoprazole IV BID. Of note, no UOP as of 11/14 but bladder scan did show 330 cc and Melissa placed with subsequent removal of 1.4 L urine. Today patient did have a drop of hemoglobin again and received another unit of PRBC. Patient on low dose levophed for pressure support, remains intubated with fentanyl and octeotide drip. Ba Vila MD PGY3. Time Spent with Patient Time attestation: Total time spent providing and/or coordinating discharge services: Exam Vital Signs Temp Pulse Resp BP Pulse Ox O2 Del Method O2 Flow Rate 98.1 F 112 H 25 H 131/77 H 97 Mechanical Ventilation 1 11/18/24 01:05 11/18/24 02:00 11/18/24 01:05 11/18/24 02:00 11/18/24 02:00 11/18/24 00:00 11/14/24 01:13 FiO2 35 11/18/24 00:00 Narrative Exam GENERAL APPEARANCE: Elderly lady currently seen in ICU. On the vent. Pressure ulcer seen in posterior head. CARDIOVASCULAR: Tachycardic, no murmurs on auscultation LUNGS/CHEST: Chest clear to auscultation. No rales, rhonchi, wheezing ABDOMEN: Soft, nontender, nondistended. No masses. Normal bowel sounds. Patient has a feeding tube EXTREMITIES: 2+ edema in the upper extremities SKIN: Skin exam normal without any rashes NEUROLOGICAL : intubated, sedated Discharge Plan Plan Patient Disposition: Xfer Other Facility Pt Being Transferred to: [facility] Prescriptions/Referrals Prescriptions/Med Rec: No Action allopurinol [Zyloprim] 100 mg tablet 100 mg PO DAILY Patient Comments: TAKE 1 TABLET BY MOUTH ONCE DAILY FOR HIGH URIC ACID sunitinib malate 25 mg capsule 25 mg PO DAILY furosemide 20 mg tablet Patient Comments: TAKE 1 TABLET BY MOUTH EVERY DAY Referrals: Gopal Dawson MD [Primary Care Provider] - Patient/Caregiver Discharge Instructions Print Language: Jamaican Stand Alone Forms: [facility]alia Award Info., Patient Portal Info Letter Discharge Order Discharge Orders: Discharge (Routine); Ordered 11/16/24 Ordered By: Rodolfo Marroquin Laniharika Quality Discharge Quality Measures VTE prophylaxis Attestestation MD Attestation I attest that I was physically present for the evaluation, physical examination, lab and imaging review of the patient with the residents. I discussed the case with the residents and agree with the findings and plans of care as documented above. Jamil Taylor MD
[2024-11-18] MEDS: fentaNYL 2,500 MCG/250 ML BAG 2,500 MCG/250 ML BAG IV (04:35)
[2024-11-18 06:44] LABS: Base Excess -5 (-3-3); HCO3 23 mEq/L (20-26); Inspired Oxygen, FIO2 21 %; O2 Saturation 97 % (91-98); PCO2 49 mmHg (32.0-48.0); PO2 84 mmHg (83-108); pH, Arterial 7.27 (7.35-7.45)
[2024-11-18 06:45] LABS: Allen Test Not Performed; Puncture Site Arterial Line
--- NOTE | 2024-11-18 07:11 | PC.NURSE ---
[facility] transfer center coordinator Adelaide called at 0350 requesting discharge summary, provider notes, labs and an updated discharge summary to be faxed to [phone]. At 0438 Adelaide called to confirm fax was received and report can be given to determine if PT a safe transfer. At 0552 magnetic tape typewriter operator gave report and PT was deemed safe for transfer. At 0611 Adelaide gave PT a bed at [facility] ICU room 4431. Adelaide is requesting a packet consisting of Imaging, clinical records and discharge summary. Adelaide would like to be contacted at [phone] with a pickup time, an update prior to PT transport or any delays that may occur. [facility] ICU is located at [address] [place] [address], [facility].
[2024-11-18 07:29] LABS: Alanine Aminotransferase 16 U/L (10-49); Albumin, Serum 2.4 gm/dL (3.4-4.8); Albumin/Globulin Ratio 0.9 (1.2-2.2); Alkaline Phosphatase 81 U/L (46-116); Anion Gap 8 (7-16); Aspartate Amino Transferase 64 U/L (0-34); BUN/Creatinine Ratio 24 Ratio (12-20); Bilirubin,Total 2.1 mg/dL (0.3-1.2); Blood Urea Nitrogen 40 mg/dL (9-23); Calcium 8.4 mg/dL (8.3-10.6); Calcium (Corrected) 9.7 mg/dL (8.5-10.1); Carbon Dioxide 22.3 mMol/L (20.0-31.0); Chloride 109 mMol/L (98-107); Creatinine (Component) 1.7 mg/dL (0.6-1.3); Estimated Creatinine Clearance 18.4 mL/min (>60); Globulin 2.7 gm/dL (2.3-3.5); Glucose 86 mg/dL (74-106); Osmolality,Calculated 286 (275-295); Sodium 139 mMol/L (136-145); Total Protein 5.1 gm/dL (5.7-8.2); eGFR 29 See Note
[2024-11-18 07:33] LABS: Basophils % (Auto) 1 % (0-2.5); Eosinophils % (Auto) 0 % (0-10); Hematocrit 36.2 % (36.0-46.0); Hemoglobin 12.1 g/dL (12.0-16.0); Immature Granulocytes % (Auto) 0 % (0-0); Immature Granulocytes Auto 0.01 Thou/mm3 (0.00-0.00); Lymphocytes # (Auto) 0.5 Thou/mm3 (1.0-4.8); Lymphocytes % (Auto) 17 % (10-50); Mean Corpuscular HGB Conc 33.4 g/dl (31.0-37.0); Mean Corpuscular Volume 90 fL (80-100); Monocytes # (Auto) 0.2 Thou/mm3 (0.0-0.8); Monocytes % (Auto) 7 % (0-12); Neutrophils # (Auto) 2.2 Thou/mm3 (1.8-7.7); Neutrophils % (Auto) 74 % (37-80); Nucleated Red Blood Cell # 0.22 Thou/mm3 (0.00-0.00); Nucleated Red Blood Cell % 7 /100 WBC (0); RDW Standard Deviation 52.1 fL (36.4-46.3); Red Blood Count 4.03 Miln/mm3 (4.00-5.20)
--- NOTE | 2024-11-18 07:34 | PC.SS ---
Update: Patient to be transferred to [facility] today. Transportation being scheduled. ETA pending.
[2024-11-18 07:43] LABS: Platelet Count 66 Thou/mm3 (140-440)
--- NOTE | 2024-11-18 07:51 | PC.CM ---
Addendum entered by Dede Jackson RN 11/18/24 09:19: Air transport set up with [facility]. they are [place] to arrive at the airport at 0909. they will then be coming to the hospital via [facility]. I faxed over completed ambulance form to [facility]. Completed packet given to charge nurse along with a packet for the air team. Family and doctor aware of transport time. Original Note: I received a call from Erin when I got to work this am. she states they just received word that patient has been accepted at [facility]. I called and obtained all the information. Patient has been accepted to ICU bed 4431 at [facility] address [address] [place] [address]. number to call and give report is [phone]. I called [facility] and in initiated transfer.
[2024-11-18] MEDS: PROPOFOL 1,000 MG IVPB 1,000 MG/100 ML VIAL 1.483 MG IV (08:21)
[2024-11-18] MEDS: DEXTROSE 10%-WATER 500 ML 50 ML IV (08:35)
[2024-11-18] MEDS: ALBUMIN HUMAN 25% IVPB 25 GM/100 ML BTL IV (08:41)
[2024-11-18] MEDS: VIT B12/Vit C/FA (Nephrovite) TABLET 1 TAB PO (08:59)
[2024-11-18] MEDS: PANTOPRAZOLE INJ 40 MG VIAL IVP (08:59)
[2024-11-18] MEDS: LEVOFLOXACIN/D5W 250MG IVPB 250 MG/50 ML BAG 50 MG IV (09:00)
[2024-11-18] MEDS: FOLIC ACID 1 MG TABLET GT (09:00)
[2024-11-18] MEDS: OCTREOTIDE ACET INJ 1,000 MCG in SODIUM CHLORIDE 0.9% 100 ML 5.1 MCG IV (10:21)
--- NOTE | 2024-11-18 10:30 | PC.NURSE ---
Reach team was here for transfr of patient to [facility]. Bedside report given to Jovanna flight nurse. Pt will be taking fentanyl drip, levophed, Sandostatin and D10 drips for transfer. Andrea Epstein (sales and marketing manager) approved fentanyl bag to be transferred with reach team. Pt is critically stable at time of transfer.
[2024-11-18 11:33] LABS: Slide Review Platelets confirmed
--- NOTE | 2024-11-18 15:04 | ESPR_ITS ---
Documentation for date of: 11/18/24 Subjective Subjective Interval history: Informant daughter Ms. 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 Patient noted to be hypotensive. IV fluids were given in the emergency department. In the ER blood pressure was 70/35, heart rate 119 max temp was 101. Labs showed hemoglobin 8.5, platelets 50, sodium 149, BUN 45, creatinine 2.5, glucose 69, elevated LFTs. Pro-Alex 6.99. Flu and COVID-negative. Chest x-ray showed pneumonia. EKG sinus tach. Patient was given 2 L of fluid bolus, antibiotics Zosyn and doxycycline were initiated and subsequently transferred to telemetry. Patient currently seen in ICU on telemetry status. Renal consultation requested for worsening renal function. Home medications included allopurinol, sunitinib. 11/10/2024 patient currently seen in ICU. Resting comfortably. Alert and awake. Had a GI bleed and was transferred to ICU yesterday. Currently she seems to be stable. Not on any pressors. Blood pressure 129/99, heart rate 81. Hemoglobin 12.1, platelets 119. Sodium 149, potassium 3.6, BUN 38, creatinine 1.4, glucose 62, calcium 8, magnesium 2. Spoke to ICU team-start patient on D5W p.o. for hypoglycemia and hypernatremia. Currently on antibiotics. 11/11/2024 patient currently seen in medical floor. Moved out of ICU. Resting comfortably. Alert and awake. Blood sugar 92. Blood pressure 130/60, heart rate 80. Urine output seems to be acceptable. Edema seems to be better. Still having some shortness of breath. WBC 2.6, hemoglobin 11.2, platelets 74. Sodium 142, potassium 3.1, BUN 30, creatinine 1.2, calcium 7.7, phosphorus 2.6, magnesium 1.8. Electrolytes are all replaced. 11/18/2024 patient currently seen in ICU. Patient has profuse GI bleed-receiving blood transfusions. Dr. Ledesma on the case. Patient will be transferred to [facility] where she had her gastric cancer treated. Patient again started to bleed. Blood products were given. Labs, medications have been reviewed. Replace electrolytes. Plan of care discussed with ICU team. On ventilator. Creatinine stable at 1.6 noted significant edema. Will give Bumex and albumin Family at bedside. She is going to be discharged to [facility]. Review of Systems Review of Systems ROS Unobtainable: due to endotracheal tube Exam Vital Signs Temp Pulse Resp BP Pulse Ox O2 Del Method O2 Flow Rate 36.7 C 89 28 H 97/52 L 97 Mechanical Ventilation 1 11/18/24 04:00 11/18/24 09:35 11/18/24 06:18 11/18/24 08:45 11/18/24 09:35 11/18/24 00:00 11/14/24 01:13 FiO2 35 11/18/24 08:00 Narrative Exam GENERAL APPEARANCE: Elderly lady currently seen in ICU. On the vent. CARDIOVASCULAR: Heart regular, no murmurs LUNGS/CHEST: Chest clear to auscultation. No rales, rhonchi, wheezing ABDOMEN: Soft, nontender, nondistended. No masses. Normal bowel sounds. Patient has a feeding tube EXTREMITIES: 2+ edema in the upper extremities SKIN: Skin exam normal without any rashes MUSCULOSKELETAL: In bed NEUROLOGICAL : intubated, sedated Objective Labs 11/18/24 06:46 11/18/24 06:46 Labs: Laboratory Results - last 24 hr 11/16/24 11/17/24 11/18/24 02:52 19:06 02:18 WBC RBC Hgb 7.8 L D 11.8 L D Hct 23.6 L 34.9 L D MCV MCH MCHC RDW Std Deviation Plt Count Neut % (Auto) Lymph % (Auto) [place] % (Auto) Eos % (Auto) Baso % (Auto) Neut # (Auto) Lymph # (Auto) [place] # (Auto) Eos # (Auto) Baso # (Auto) Immature Gran # (Auto) Absolute Nucleated RBC Immature Gran % Nucleated RBC % Puncture Site ABG pH ABG pCO2 ABG pO2 ABG HCO3 ABG O2 Saturation ABG Base Excess FiO2 Sodium Potassium Chloride Carbon Dioxide Anion Gap BUN Creatinine Estim Creat Clear Calc eGFR BUN/Creatinine Ratio Glucose Calculated Osmolality Calcium Corrected Calcium Magnesium Total Bilirubin AST ALT Alkaline Phosphatase Total Protein Albumin Globulin Albumin/Globulin Ratio Misc Test Result Blood Type A Positive Antibody Screen NEGATIVE Crossmatch See Detail Blood Bank Wristband ID Yes 11/18/24 11/18/24 06:25 06:46 WBC 3.0 L RBC 4.03 Hgb 12.1 Hct 36.2 MCV 90 MCH 30.0 MCHC 33.4 RDW Std Deviation 52.1 H Plt Count 66 L D Neut % (Auto) 74 Lymph % (Auto) 17 [place] % (Auto) 7 Eos % (Auto) 0 Baso % (Auto) 1 Neut # (Auto) 2.2 Lymph # (Auto) 0.5 L [place] # (Auto) 0.2 Eos # (Auto) 0.0 Baso # (Auto) 0.0 Immature Gran # (Auto) 0.01 H Absolute Nucleated RBC 0.22 H Immature Gran % 0 Nucleated RBC % 7 H Puncture Site Arterial Line ABG pH 7.27 L D ABG pCO2 49 H D ABG pO2 84 D ABG HCO3 23 ABG O2 Saturation 97 ABG Base Excess -5 L FiO2 21 Sodium 139 Potassium 4.0 Chloride 109 H Carbon Dioxide 22.3 Anion Gap 8 BUN 40 H Creatinine 1.7 H Estim Creat Clear Calc 18.4 L eGFR 29 L BUN/Creatinine Ratio 24 H Glucose 86 Calculated Osmolality 286 Calcium 8.4 Corrected Calcium 9.7 Magnesium 2.0 Total Bilirubin 2.1 H AST 64 H ALT 16 Alkaline Phosphatase 81 Total Protein 5.1 L Albumin 2.4 L Globulin 2.7 Albumin/Globulin Ratio 0.9 L Misc Test Result Platelets confirmed Blood Type Antibody Screen Crossmatch Blood Bank Wristband ID ABG Interpretation ABG results: 11/13/24 11/14/24 11/14/24 15:02 05:13 07:53 ABG pH 7.38 7.25 L D 7.24 L ABG pCO2 41 53 H D 56 H ABG pO2 96 83 75 L ABG HCO3 24 23 24 ABG O2 Saturation 98 96 96 ABG Base Excess -1 -4 L -4 L VBG pH VBG pCO2 VBG pO2 VBG Base Excess 11/14/24 11/15/24 11/15/24 11:30 04:43 08:50 ABG pH 7.32 L 7.48 H D 7.40 ABG pCO2 43 D 29 L D 36 ABG pO2 76 L 86 121 H D ABG HCO3 22 21 22 ABG O2 Saturation 97 98 99 H ABG Base Excess -4 L -1 -3 VBG pH VBG pCO2 VBG pO2 VBG Base Excess 11/15/24 11/18/24 12:15 06:25 ABG pH 7.27 L D ABG pCO2 49 H D ABG pO2 84 D ABG HCO3 23 ABG O2 Saturation 97 ABG Base Excess -5 L VBG pH 7.29 L VBG pCO2 47 VBG pO2 70 H VBG Base Excess -4 L Assessment & Plan Assessment and plan (1) Acute renal failure (ARF): Status: Acute (2) Hypernatremia: Status: Acute (3) Septic shock: Status: Acute (4) Atrial fibrillation with RVR: Status: Acute (5) Thrombocytopenia: Status: Acute (6) Acute GI bleeding: Status: Acute (7) Hypotension: Status: Acute Additional Assessment & Plan Additional Plan: (1) Acute renal failure (ARF): Status: Acute Assessment and plan: Acute renal failure secondary to prerenal azotemia. Creatinine stable at 1.6. Blood pressure low . On pressors. Monitor hemoglobin posttransfusion. Dr. Ledesma was consulted for GI bleed. status post endoscopy . Patient again started to bleed. Continue with fluid resuscitation, packed red blood cells. Noted significant edema-diuretics given Patient will be transferred to [facility] today (2) Hypernatremia: Status: Acute Assessment and plan: Sodium markedly improved to 138. Replace electrolytes. (3) Septic shock: Status: Acute Assessment and plan: Broad-spectrum antibiotics, fluids Shock seems to be resolved (4) Atrial fibrillation with RVR: Status: Acute Assessment and plan: Heart rate currently 80 (5) Thrombocytopenia: Status: Acute Assessment and plan: Platelets 112--74 (6) Acute GI bleeding: Status: Acute Assessment and plan: Dr. Ledesma on the case (7) Hypotension: Status: Acute Assessment and plan: Currently on pressors. Blood loss anemia. Plan of care discussed with family and ICU team Quality - progress note Quality Measures Quality Measures: VTE prophylaxis Reason for Continued Stay Reason for Continued Stay: further monitoring Procedures Arterial Line Size (Gauge): 18
== END 2024-11-18 10:42 | disposition other institution (70) | DRG 870 ==
LOC: SERX 11-09 01:17 → SERHOLD 11-09 01:24 → S2SX 11-09 15:36 → SERHOLD 11-10 06:11 → S2SX 11-10 09:48 → S3SX 11-11 07:34 → S2SX 11-14 11:09 → S3SX 11-16 09:25 → S2SX 11-16 09:25
PROVIDERS: Internal Medicine; Nurse Practitioner Family; Specialist; Student in an Organized Health Care Education/Training Program; Admitting Provider Internal Medicine; Emergency Provider Emergency Medicine; PCP Family Medicine; Visit Provider Internal Medicine Critical Care Medicine
PROC: (CPT 43239; principal; 2024-11-09 16:30)
DX: A41.9 Sepsis, unspecified organism (principal); I21.A1 Myocardial infarction type 2; J18.9 Pneumonia, unspecified organism; J96.01 Acute respiratory failure with hypoxia; K25.4 Chronic or unspecified gastric ulcer with hemorrhage; K29.71 Gastritis, unspecified, with bleeding; R65.21 Severe sepsis with septic shock; K20.91 Esophagitis, unspecified with bleeding; N17.9 Acute kidney failure, unspecified; E87.0 Hyperosmolality and hypernatremia; D61.818 Other pancytopenia; D62 Acute posthemorrhagic anemia; R04.2 Hemoptysis; E87.20 Acidosis, unspecified; J90 Pleural effusion, not elsewhere classified; E87.1 Hypo-osmolality and hyponatremia; C16.9 Malignant neoplasm of stomach, unspecified; Z16.21 Resistance to vancomycin; J10.1 Influenza due to other identified influenza virus with other respiratory manifestations; F03.90 Unspecified dementia, unspecified severity, without behavioral disturbance, psychotic disturbance, mood disturbance, and anxiety; N18.31 Chronic kidney disease, stage 3a; E87.70 Fluid overload, unspecified; I48.0 Paroxysmal atrial fibrillation; E86.0 Dehydration; R62.7 Adult failure to thrive; E87.6 Hypokalemia; D53.9 Nutritional anemia, unspecified; I95.9 Hypotension, unspecified; Z85.028 Personal history of other malignant neoplasm of stomach; Z90.3 Acquired absence of stomach [part of]; Z93.1 Gastrostomy status; Z98.0 Intestinal bypass and anastomosis status; Z66 Do not resuscitate; Z51.5 Encounter for palliative care
CPT/HCPCS: 36415; 36600; 71045; 74177; 80048; 80053; 80069; 81001; 82040; 82270; 82803; 83540; 83550; 83605; 83615; 83690; 83735; 83880; 84100; 84145; 84484; 85007; 85014; 85018; 85025; 85027; 85046; 85379; 85384; 85610; 85730; 86850; 86900; 86901; 86921; 86922; 86927; 86965; 87040; 87077; 87081; 87086; 87106; 87186; 87205; 87400; 87811; 92526; 92610; 93005; 93225; 93306; 93970; 94002; 94003; 94640; 94664; 96365; 96366; 96367; 97162; 99291; A4649; J0456; J0613; J0692; J0780; J1940; J1956; J2250; J2354; J2470; J2543; J2598; J2704; J3010; J3420; J3475; J3480; J3490; J7030; J7050; J7060; J7070; J7120; J7999; P9012; P9016; P9035; P9047; P9060; Q9967; A9270; J1596

== ENCOUNTER → 2025-01-14 | Outpatient (CLI) | payer MEDICARE, MEDICAID, SELFPAY ==
[2025-01-14 13:20] LABS: Alanine Aminotransferase 21 U/L (10-49); Albumin, Serum 2.8 gm/dL (3.4-4.8); Albumin/Globulin Ratio 0.6 (1.2-2.2); Alkaline Phosphatase 123 U/L (46-116); Anion Gap 7 (7-16); Aspartate Amino Transferase 58 U/L (0-34); BUN/Creatinine Ratio 15 Ratio (12-20); Bilirubin,Total 1.1 mg/dL (0.3-1.2); Blood Urea Nitrogen 15 mg/dL (9-23); Calcium 8.7 mg/dL (8.3-10.6); Calcium (Corrected) 9.7 mg/dL (8.5-10.1); Carbon Dioxide 28.4 mMol/L (20.0-31.0); Chloride 101 mMol/L (98-107); Globulin 4.4 gm/dL (2.3-3.5); Glucose 133 mg/dL (74-106); Osmolality,Calculated 274 (275-295); Potassium 4.1 mMol/L (3.4-5.1); Sodium 136 mMol/L (136-145); Total Protein 7.2 gm/dL (5.7-8.2); eGFR 54 See Note
[2025-01-14 16:46] LABS: Basophils # (Auto) 0.1 Thou/mm3 (0.0-0.2); Basophils % (Auto) 2 % (0-2.5); Eosinophils % (Auto) 2 % (0-10); Hematocrit 34.3 % (36.0-46.0); Immature Granulocytes % (Auto) 0 % (0-0); Immature Granulocytes Auto 0.01 Thou/mm3 (0.00-0.00); Lymphocytes # (Auto) 1.5 Thou/mm3 (1.0-4.8); Lymphocytes % (Auto) 58 % (10-50); Mean Corpuscular HGB Conc 32.1 g/dl (31.0-37.0); Mean Corpuscular Volume 97 fL (80-100); Monocytes # (Auto) 0.1 Thou/mm3 (0.0-0.8); Monocytes % (Auto) 5 % (0-12); Neutrophils # (Auto) 0.9 Thou/mm3 (1.8-7.7); Neutrophils % (Auto) 34 % (37-80); Nucleated Red Blood Cell % 0 /100 WBC (0); Platelet Count 142 Thou/mm3 (140-440); RDW Standard Deviation 61.9 fL (36.4-46.3); Red Blood Count 3.55 Miln/mm3 (4.00-5.20)
[2025-01-14 16:47] LABS: White Blood Count 2.6 Thou/mm3 (3.6-11.0)
== END | disposition home or self-care (01) ==
LOC: SLDO 12:27
PROVIDERS: Referring Provider Family Medicine; Visit Provider Family Medicine
DX: L89.309 Pressure ulcer of unspecified buttock, unspecified stage (principal); D63.0 Anemia in neoplastic disease
CPT/HCPCS: 36415; 80053; 85025

== ENCOUNTER → 2025-01-15 | Outpatient (CLI) | payer MEDICARE, MEDICAID, SELFPAY | END | disposition home or self-care (01) | LOC: SLDO 15:21 | PROVIDERS: PCP Family Medicine; Referring Provider Family Medicine; Visit Provider Family Medicine | DX: L89.309 Pressure ulcer of unspecified buttock, unspecified stage (principal); D63.0 Anemia in neoplastic disease ==

== ENCOUNTER 2025-02-14 20:47 | Inpatient (IN) | payer MEDICARE, MEDICAID, SELFPAY ==
--- NOTE | 2025-02-14 21:10 | EDNOTE_ITS ---
ED Skin Abcess FB-RME/HPI General Chief complaint: Skin/Abscess/Foreign Body Stated complaint: G TUBE LEAKING, REDNESS Time Seen by Provider: 02/14/25 21:10 Arrival date/time: 02/14/25 20:47 RME / HPI RME / HPI narrative: This section includes all my notes and documentations, including HPI, PE, and ED course. Travon Crews MD HPI: 89yo female with a history of gastric cancer s/p partial gastrectomy on sunitinib malate (following [facility] oncology), PEG tube, chronic macrocytic anemia, GI bleed, FTT, paroxysmal A-fib brought in by her daughter presents to the ED for a chief complaint of G-tube leakage. Daughter states the patient tried to pulled out her G-tube about a week ago, reporting she has since noticed the G- tube site has been leaking after the patient gets her feedings. Daughter notes the patient had a fever a few days ago. No obvious cough. No other complaints reported. ROS: All negative except as documented in HPI. Physical Exam: General: Alert. No acute distress when remaining still. Eyes: Conjunctivae and lids clear. ENT: No nasal congestion. Neck: Supple. Heart: RRR. Lungs: No respiratory distress. Good air movement. No significant rhonchi, wheezing, rales. Abdomen: Soft and nontender. Normal bowel sounds. No distension. No rebound or guarding. G-tube in place with surrounding stoma remarkable for erythema and edema and calor. Back: No CVA tenderness. Skin: Warm and dry. Neuro: Alert. I reviewed all diagnostic test results. My interpretation of the chest x-ray is infiltrates. Blood tests show Hemoglobin 7.5, ESR 40, Creatinine 2.2, Lactic Acid 2.8, CRP 12.9, Procalcitonin 1.33. Gastric occult blood positive. Fecal occult blood negative. COVID/influenza negative. At this point, diagnoses include G-tube malfunction and severe anemia. Treatment here included Zoysn and NS. I discussed the case with our bushel girl and hospitalist. About the presentation and exam and diagnostics and treatments here. And need of further care in the hospital. Will accept the patient. Travon Crews MD Related Data Home Medications ?Medication ?Instructions ?Recorded ?Confirmed sunitinib malate 25 mg capsule 25 mg PO DAILY 08/11/24 11/10/24 allopurinol 100 mg tablet 100 mg PO DAILY 10/07/24 (Zyloprim) furosemide 20 mg tablet mg 11/10/24 Allergies Allergy/AdvReac Type Severity Reaction Status Date / Time No Known Allergies Allergy Verified 11/08/24 22:58 Review of Systems Review of Systems Systems Reviewed: All systems reviewed, normal except as documented Past Medical History Past Medical History NEUROLOGIC: Positive Dementia; Negative Neurological Disorders, Cerebrovascular Accident, Transient Ischemic Attacks (TIA), Alzheimer's Disease, Parkinson's Disease, Brain Tumor, Meningitis, Seizures, Epilepsy, Multiple Sclerosis, Cerebral Palsy, Amyotrophic Lateral Sclerosis (ALS/Samaria Gehrig's), Guillain-Hedley Syndrome, Spina Bifida, Paralysis, Peripheral Neuropathy, Alfaro's Palsy, Subdural Hematoma, Migraine, H ead Trauma, Spinal Cord Injury or Traumatic Brain Injury CARDIAC: Positive Cardiac Arrhythmia, Atrial Fibrillation, Congestive Heart Failure and Edema; Negative Cardiac Disorders, Myocardial Infarction, Angina, Heart Murmur, Coronary Artery Disease, Atherosclerotic Heart Disease, Peripheral Vascular Disease, Hypercholesterolemia, Aneurysm, Congenital Heart Disease, Valvular Heart Disease, Rheumatic Fever, Cardiomyopathy, Pericarditis, Cellulitis, Deep Vein Thrombosis, Hypertension, Hypotension or Varicose Veins RESPIRATORY: Negative Chronic Obstructive Pulmonary Disease (COPD), Asthma (intubated), Bronchitis, Emphysema, Pneumonia, Pulmonary Fibrosis, Cystic Fibrosis, Tuberculosis, Pulmonary Embolism, Pulmonary Edema or Sleep Apnea GASTROINTESTINAL: Positive Gastrointestinal Disorders, Gastrointestinal Bleed and Hemorrhoids; Negative Hepatitis, Cirrhosis, Pancreatitis, Celiac Disease, Gall Bladder Disease, Esophageal Varices, Raya's Esophagus, Colitis, Ulcerative Colitis, Diverticulitis, Diverticulosis, Ulcer, Colorectal Cancer, Irritable Bowel, Crohn's Disease, Obstructive Bowel, Hiatal Hernia, Gastroesophageal Reflux Disease or Obesity GENITOURINARY: Negative Genitourinary Disorders, Renal Disease, Kidney Stones, Polycystic Kidney Disease, Neurogenic Bladder, Inguinal Hernia, Dialysis, Prostate Cancer or Benign Prostatic Hyperplasia REPRODUCTIVE: Negative Breast Cancer, Endometriosis, Genital Herpes, Gonorrhea, Pelvic Inflammatory Disease, Previous Pregnancies, Syphilis, Testicular Cancer or Uterine Prolapse MUSCULOSKELETAL: Negative Musculoskeletal Disorders, Muscular Dystrophy, Myasthenia Gravis, Marfan's Syndrome, Bone Cancer, Arthritis, Rheumatoid Arthritis, Osteoporosis, Degenerative Disk Disease, Gout, Scoliosis, Carpal Tunnel Syndrome, Fibromyalgia, Fractures, Degenerative Joint Disease, Osteomyelitis or Poliovirus ENT: Negative Cataracts, Glaucoma, Blind, Retinal Detachment, Macular Degeneration, Ear Infection, Deafness, Head Trauma or Eye Prosthesis ENDOCRINE: Negative Endocrine Disorders, Diabetes Mellitus Type 1, Diabetes Mellitus Type 2, Hypoglycemia, Simon's Syndrome, [place]'s Disease, Hyperthyroidism, Hypothyroidism, Parathyroid Disease, Pituitary Disease, Systemic Lupus Erythematosus, Syndrome of Inappropriate Antidiuretic Hormone (SIADH), Adrenal Disease or Graves' Disease HEMATOLOGIC: Positive Blood Disorders, Anemia and Clotting Problems; Negative Leukemia, Hemophilia, Thalassemia or Sickle Cell Disease PSYCHO/SOCIAL: Positive Eating Disorder; Negative Psychiatric Problems, Schizophrenia, Recreational Drug Use, Bipolar Disorder, Depression, Anxiety, Behavior Problems, Self-Mutilation, Attention Deficit Disorder, Attention Deficit Hyperactivity Disorder, Depression or Post Traumatic Stress Disorder OTHER HISTORY: Positive Hospitalization, Chemotherapy and Cancer; Negative Autoimmune Disease, Down Syndrome, Autism, Developmental Delay, Shingles, Falls, Blood Transfusions, Blood Transfusion Reaction, Anesthesia Reactions, Organ Transplant, Radiation Therapy, Hyperbaric Therapy, MRSA, VRSA, Vancomycin-Resistant Enterococci, Human Immunodeficiency Virus (HIV), Chicken Pox, Measles, Mumps, Rubella ([place] Measles), Pertussis, Clostridium Difficile, Breast Cancer, Cervical Cancer, Colorectal Cancer, Lung Cancer, Ovarian Cancer, Prostate Cancer or Testicular Cancer Family History FAMILY HISTORY: Negative Family Psychiatric Problems, Family Respiratory Disorders, Family Cardiac Disorders, Family Gastrointestinal Problems, Family Cancer, Family Surgery or Family Anesthesia Reaction Surgical History SURGICAL: Positive Abdominal Surgery and Gastrostomy; Negative Cardiac Surgery, Open Heart Surgery, Coronary Artery Bypass Graft, Valve Replacement, Vascular Surgery, Coronary Stent, Cardiac Catheterization, Pacemaker, Angiogram, Auto Implanted Cardiovert Defib, Carotid Endarterectomy, Endocrine Surgery, Thyroidectomy, Ear Surgery, Tympanostomy Tube, Eye Surgery, Nose Surgery, Oral Surgery, Tonsillectomy, Adenoidectomy, Cochlear Implant, Corneal Transplant, Throat Surgery, Tracheostomy, Gastric Bypass Surgery, Bowel Surgery, Nephrectomy, Transurethral Resection, Joint Replacement, Amputation, Open Reduction Internal Fixation, Arthroscopy, Neurologic Surgery, Brain Shunt, Mastectomy, Lumpectomy, Hysterectomy, Tubal Ligation, Section, Va sectomy or Organ Transplant Social History SMOKING STATUS: Never smoker ED Exam Narrative Physical exam: As noted in HPI. Course Quality Measures none Orders Category Date Time Status Bedside COVID-19 Antigen Test NOW Care 02/14/25 21:16 Active Bedside Influenza A&B Antigen Test NOW Care 02/14/25 21:16 Completed COVID-19 Screening Questionnaire NOW Care 02/15/25 00:12 Active Decision to Admit X1 Care 02/15/25 00:12 Completed Glucose [Bedside Blood Glucose] NOW Care 02/14/25 23:44 Active NPO after Midnight ONCE Care 02/14/25 21:13 Active Occult Blood,Stool (Nursing) NOW Care 02/14/25 23:04 Active Occult blood,Gastric (Nursing) NEEDED Care 02/14/25 23:04 Active Saline [Insert IV] NOW Care 02/14/25 21:16 Active Straight [In and Out Catheter] X1 Care 02/14/25 21:16 Active Consult to Gastroenterology Stat Cons 02/14/25 21:13 Ordered Diet NPO after Midnight Diet 02/15/25 00:01 Active XR chest 1V portable Stat Exams 02/14/25 21:16 Completed Blood Culture (Lab) Stat Lab 02/14/25 21:40 Received CBC Stat Lab 02/14/25 21:44 Completed CMP [Comprehensive Metabolic Panel] Stat Lab 02/14/25 21:44 Completed CRP [C-Reactive Protein] Stat Lab 02/14/25 21:44 Completed ESR [Sed Rate (ESR)] Stat Lab 02/14/25 21:44 Completed Lactate (Lactic Acid) Stat Lab 02/14/25 21:44 Completed Magnesium Stat Lab 02/14/25 21:44 Completed Occult Blood, Gastric (LAB) Stat Lab 02/14/25 23:15 Completed Occult Blood, Stool (LAB) Stat Lab 02/14/25 23:15 Completed Path Review Blood Smear Stat Lab 02/14/25 21:44 Completed Procalcitonin Stat Lab 02/14/25 21:44 Completed UA, C/S IF [Urinalysis, C/S if Indicated] Stat Lab 02/14/25 21:20 Ordered Piper/Tazo 3.375 gm Premix [Zosyn] Med 02/14/25 21:18 Discontinued 3.375 gm in 50 ml IV X1 Sodium Chloride 0.9% 1000 ml [Ns] 1,000 ml Med 02/14/25 21:18 Active IV 100 mls/hr Vital Signs Vital signs: Vital Signs Temperature 98.8 F 02/14/25 22:30 Pulse Rate 91 02/14/25 22:30 Respiratory Rate 20 02/14/25 22:30 Blood Pressure 124/71 02/14/25 22:30 Pulse Oximetry (%) 95 02/14/25 22:30 Oxygen Delivery Method Room Air 02/14/25 22:30 Skin / Abscess / Foreign Body MDM Narrative MDM Narrative:: Scribe Attestation: 02/14/25 Hui Green am scribing for and in the presence of Dr. Crews. 89yo female with a history of gastric cancer s/p partial gastrectomy on sunitinib malate (following [facility] oncology), PEG tube, chronic macrocytic anemia, GI bleed, FTT, paroxysmal A-fib brought in by her daughter presents to the ED for a chief complaint of G-tube leakage. Daughter states the patient pulled out her G-tube last week, reporting she has since noticed the G-tube site has been leaking after the patient gets her feedings. Daughter notes the patient had a fever a few days ago. No chills, cough or any other associated symptoms. No other complaints reported. Patient data External records reviewed:: [facility] previous records (Per chart review, patient was admitted here on 11/09/24 for septic shock. Patient's PEG tube was inserted by Dr. Ledesma on 08/15/24.) Clinical information provided by:: family (daughter) Social determinants that could affect healthcare access:: none Patient has the following chronic illnesses:: gastric cancer s/p partial gastrectomy on sunitinib malate (following [facility] oncology), chronic macrocytic anemia, GI bleed, FTT, paroxysmal A-fib How is presenting disease/condition affected by chronic disease/condition?: uneffected by Evaluation data The following diagnostics were reviewed and interpreted by me:: lab results and radiology exam(s) Lab and/or radiology exams considered but not ordered:: none Interpretation Summary: I reviewed all diagnostic test results. My interpretation of the chest x-ray is infiltrates. Blood tests show Hemoglobin 7.5, ESR 40, Creatinine 2.2, Lactic Acid 2.8, CRP 12.9, Procalcitonin 1.33. Gastric occult blood positive. Fecal occult blood negative. COVID/influenza negative. Medications / Prescriptions Medications or Prescriptions considered but not ordered:: none Medication administrations:: Medication Administration History Acetaminophen (Acetaminophen 325 Mg Tablet) 650 mg PO Q6H PRN PRN Reason: PAIN OR FEVER > 101 Stop: 03/17/25 00:38 Sodium Chloride (Ns) 1,000 mls @ 100 mls/hr IV .Q10H ONE Stop: 02/15/25 07:17 Last Admin: 02/14/25 22:34 Dose: 100 mls/hr Documented By: CCT Lactated Ringer's (Lactated Ringers) 500 mls @ 999 mls/hr IV .Q31M ONE Stop: 02/15/25 01:36 Piperacillin/Tazobactam/Dextrose (Zosyn) 50 mls @ 100 mls/hr IV Q8HR LAKESHA Stop: 02/22/25 05:59 Ondansetron HCl (Ondansetron Inj 2 Mg/Ml Inj 2 Ml) 4 mg IV Q6H PRN; Protocol PRN Reason: NAUSEA OR VOMITING Stop: 03/17/25 00:38 Pantoprazole Sodium (Pantoprazole Inj 40 Mg Vial) 40 mg IVP BID LAKESHA Stop: 03/17/25 08:59 Pharmacy Consult (Pharmacy Renal Dose Adjustment 1 Ea) 1 each XX PRN PRN PRN Reason: CONSULT Stop: 03/17/25 01:07 Sennosides (Senna Tablet) 2 tab PO BID PRN; Protocol PRN Reason: CONSTIPATION Stop: 03/17/25 00:38 Discontinued Medications Piperacillin/Tazobactam/Dextrose (Zosyn) 3.375 gm in 50 mls @ 100 mls/hr IV X1 ONE Stop: 02/14/25 21:47 Last Infusion: 02/14/25 23:15 Dose: Infused Documented By: Admin: 02/14/25 22:34 Dose: 100 mls/hr Documented By: CCT Pantoprazole Sodium (Pantoprazole Inj 40 Mg Vial) 40 mg IVP X1 ONE Stop: 02/15/25 01:04 Zoysn, NS Consultations Consultation(s) initiated? (list below): Yes Consultation #1 (Physician, Specialty, Details): I discussed the case with Dr. Ledesma, our bushel girl. About the presentation and exam and diagnostics and treatments here. And need of further care in the hospital. Recommends admitting the patient and he will change the PEG tube tomorrow. Time: 21:10 Diagnosis Skin/Abscess Differential Diagnosis: abscess of skin or subcutaneous tissue, cellulitis and other (GI bleed, pneumonia, UTI, sepsis) Most likely diagnosis given after review of the tests above:: G-tube malfunction and severe anemia Admission Indicated Admission indicated?: indicated Explain why admission is indicated or not indicated:: G-tube malfunction and severe anemia Admission Request Was there a request for admission?: Yes Admission Attestation Admission request attestation: Discussed case with Hospitalist service regarding admission. Discussed patients ED course, exam findings, labs, and radiology results. The Hospitalist [agrees] to accept the patient for admission. Disposition Plan Disposition Plan: Admit Discharge Plan Plan Patient Disposition: Admit Acute Care w/in Hospital Problem List Clinical Impression: Gastrostomy tube dysfunction, Severe anemia
--- NOTE | 2025-02-14 21:16 | XR_ITS ---
Examination: AP chest single view TECHNIQUE: AP portable upright chest single view Date and time: February 14, 2025 at 2144 hours Comparison November 16, 2024 INDICATIONS: Fever today FINDINGS: Moderate CHF Mild enlargement cardiac contour with prominent perihilar and basilar edema and moderate pleural effusions Consider superimposed pneumonia at the lung bases Prominent osteopenia IMPRESSION: Moderate CHF Consider superimposed pneumonia at the lung bases
[2025-02-14 22:00] LABS: Lactate (Lactic Acid) 2.8 mMol/L (0.4-2.0)
[2025-02-14 22:02] LABS: Basophils % (Auto) 0 % (0-2.5); Eosinophils % (Auto) 0 % (0-10); Hematocrit 22.5 % (36.0-46.0); Immature Granulocytes % (Auto) 2 % (0-0); Immature Granulocytes Auto 0.07 Thou/mm3 (0.00-0.00); Lymphocytes # (Auto) 0.7 Thou/mm3 (1.0-4.8); Lymphocytes % (Auto) 20 % (10-50); Mean Corpuscular HGB Conc 33.3 g/dl (31.0-37.0); Mean Corpuscular Volume 105 fL (80-100); Monocytes # (Auto) 0.2 Thou/mm3 (0.0-0.8); Monocytes % (Auto) 4 % (0-12); Neutrophils # (Auto) 2.6 Thou/mm3 (1.8-7.7); Neutrophils % (Auto) 74 % (37-80); Nucleated Red Blood Cell # 0.22 Thou/mm3 (0.00-0.00); Nucleated Red Blood Cell % 6 /100 WBC (0); RDW Standard Deviation 95.7 fL (36.4-46.3); Red Blood Count 2.14 Miln/mm3 (4.00-5.20); White Blood Count 3.6 Thou/mm3 (3.6-11.0)
[2025-02-14 22:16] LABS: Hemoglobin 7.5 g/dL (12.0-16.0)
[2025-02-14 22:17] LABS: Platelet Count 60 Thou/mm3 (140-440)
[2025-02-14 22:30] VITALS: BP 124/71; PULSE 91; RESP 20; TEMP 37.1; O2SAT 95
[2025-02-14 22:32] LABS: Sed Rate (ESR) 40 mm/hr (0-30)
[2025-02-14] MEDS: PIPER/TAZO 3.375 GM PREMIX 3.375 GM/50 ML BAG IV (22:34)
[2025-02-14] MEDS: SODIUM CHLORIDE 0.9% 1000 ML 1,000 ML 100 ML IV (22:34)
[2025-02-14 22:54] LABS: Slide Review Platelets confirmed
[2025-02-14 22:56] LABS: Path Review Blood Smear Sent to Pathologist
[2025-02-14 23:26] LABS: OBG Card Lot # 20632; OBG QC OK? Yes; OBS Card Expiration Date 02828/2028; OBS QC OK? Yes; Occult Blood, Stool Negative (Negative)
[2025-02-14 23:41] LABS: Alanine Aminotransferase 11 U/L (10-49); Albumin, Serum 2.2 gm/dL (3.4-4.8); Albumin/Globulin Ratio 0.6 (1.2-2.2); Alkaline Phosphatase 87 U/L (46-116); Anion Gap 11 (7-16); Aspartate Amino Transferase 44 U/L (0-34); BUN/Creatinine Ratio 28 Ratio (12-20); Blood Urea Nitrogen 61 mg/dL (9-23); C-Reactive Protein 12.9 mg/dL (0.0-0.9); Carbon Dioxide 25.4 mMol/L (20.0-31.0); Chloride 98 mMol/L (98-107); Creatinine (Component) 2.2 mg/dL (0.6-1.3); Globulin 3.9 gm/dL (2.3-3.5); Glucose 151 mg/dL (74-106); Magnesium 2.2 mg/dL (1.6-2.6); Osmolality,Calculated 288 (275-295); Procalcitonin 1.33 ng/ml (0.0-0.49); Sodium 134 mMol/L (136-145); Total Protein 6.1 gm/dL (5.7-8.2); eGFR 21 See Note
[2025-02-14 23:48] LABS: Calcium 7.4 mg/dL (8.3-10.6); Calcium (Corrected) 8.8 mg/dL (8.5-10.1)
[2025-02-15] VITALS (26 sets, daily range): BP systolic 87–133; BP diastolic 51–85; PULSE 59–105; RESP 12–95; TEMP 36.1–37.1; O2SAT 90–100; BMI 16.1
[2025-02-15 00:13] LABS: OBG Developer Lot # 75023G; Occult Blood, Gastric Positive (Negative)
--- NOTE | 2025-02-15 00:13 | ESHP_ITS ---
Documentation for date of: 02/15/25 [facility] History of Present Illness History of present illness: The patient is a poor historian, spoke to daughter Angie over the phone, contributed to HPI, The patient is an 89-year-old female, [place] speaker, past medical history of gastric cancer status post partial gastrectomy, followed by [facility], status post PEG tube, chronic macrocytic anemia, GI bleed, paroxysmal atrial fibrillation?no anticoagulation, who was brought into the emergency room by her daughter following a dislodged PEG tube. ER provider spoke to Dr. Ledesma who recommended bringing the admitting the patient for PEG tube replacement. Daughter also reported that patient has been having fever for the past few days, has been getting Tylenol at home, with no relief. In the ER patient referred to bilateral pneumonia on chest x-ray, normal WBC count but noted anemia, positive gastric occult blood, lactic acidosis 2.8. Noted WILLIE on labs. The patient will be admitted for treatment of sepsis secondary to pneumonia, PEG tube replacement, acute GI bleed. Past medical history: History of gastric cancer status post partial gastrectomy, followed by [facility], s/p PEG tube, history of GI bleeding, and chronic microcytic anemia, paroxysmal atrial fibrillation, not currently on any anticoagulation. Past surgical history: Partial gastrectomy Social history: Denies smoking and drinking Allergies and medication history reviewed Past Medical History Past Medical History NEUROLOGIC: Positive Dementia; Negative Neurological Disorders, Cerebrovascular Accident, Transient Ischemic Attacks (TIA), Alzheimer's Disease, Parkinson's Disease, Brain Tumor, Meningitis, Seizures, Epilepsy, Multiple Sclerosis, Cerebral Palsy, Amyotrophic Lateral Sclerosis (ALS/Samaria Gehrig's), Guillain-Luzerne Syndrome, Spina Bifida, Paralysis, Peripheral Neuropathy, Alfaro's Palsy, Subdural Hematoma, Migraine, Head Trauma, Spinal Cord Injury or Traumatic Brain Injury CARDIAC: Positive Cardiac Arrhythmia, Atrial Fibrillation, Congestive Heart Failure and Edema; Negative Cardiac Disorders, Myocardial Infarction, Angina, Heart Murmur, Coronary Artery Disease, Atherosclerotic Heart Disease, Peripheral Vascular Disease, Hypercholesterolemia, Aneurysm, Congenital Heart Disease, Valvular Heart Disease, Rheumatic Fever, Cardiomyopathy, Pericarditis, Cellulitis, Deep Vein Thrombosis, Hypertension, Hypotension or Varicose Veins RESPIRATORY: Negative Chronic Obstructive Pulmonary Disease (COPD), Asthma, Bronchitis, Emphysema, Pneumonia, Pulmonary Fibrosis, Cystic Fibrosis, Tuberculosis, Pulmonary Embolism, Pulmonary Edema or Sleep Apnea GASTROINTESTINAL: Positive Gastrointestinal Disorders, Gastrointestinal Bleed and Hemorrhoids; Negative Hepatitis, Cirrhosis, Pancreatitis, Celiac Disease, Gall Bladder Disease, Esophageal Varices, Raya's Esophagus, Colitis, Ulcerative Colitis, Diverticulitis, Diverticulosis, Ulcer, Colorectal Cancer, Irritable Bowel, Crohn's Disease, Obstructive Bowel, Hiatal Hernia, Gastroesophageal Reflux Disease or Obesity GENITOURINARY: Negative Genitourinary Disorders, Renal Disease, Kidney Stones, Polycystic Kidney Disease, Neurogenic Bladder, Inguinal Hernia, Dialysis, Prostate Cancer or Benign Prostatic Hyperplasia REPRODUCTIVE: Negative Breast Cancer, Endometriosis, Genital Herpes, Gonorrhea, Pelvic Inflammatory Disease, Previous Pregnancies, Syphilis, Testicular Cancer or Uterine Prolapse MUSCULOSKELETAL: Negative Musculoskeletal Disorders, Muscular Dystrophy, Myasthenia Gravis, Marfan's Syndrome, Bone Cancer, Arthritis, Rheumatoid Arthritis, Osteoporosis, Degenerative Disk Disease, Gout, Scoliosis, Carpal Tunnel Syndrome, Fibromyalgia, Fractures, Degenerative Joint Disease, Osteomyelitis or Poliovirus ENT: Negative Cataracts, Glaucoma, Blind, Retinal Detachment, Macular Degeneration, Ear Infection, Deafness, Head Trauma or Eye Prosthesis ENDOCRINE: Negative Endocrine Disorders, Diabetes Mellitus Type 1, Diabetes Mellitus Type 2, Hypoglycemia, Simon's Syndrome, Candler's Disease, Hyperthyroidism, Hypothyroidism, Parathyroid Disease, Pituitary Disease, Systemic Lupus Erythematosus, Syndrome of Inappropriate Antidiuretic Hormone (SIADH), Adrenal Disease or Graves' Disease HEMATOLOGIC: Positive Blood Disorders, Anemia and Clotting Problems; Negative Leukemia, Hemophilia, Thalassemia or Sickle Cell Disease PSYCHO/SOCIAL: Positive Eating Disorder; Negative Psychiatric Problems, Schizophrenia, Recreational Drug Use, Bipolar Disorder, Depression, Anxiety, Behavior Problems, Self-Mutilation, Attention Deficit Disorder, Attention Deficit Hyperactivity Disorder, Depression or Post Traumatic Stress Disorder OTHER HISTORY: Positive Hospitalization, Chemotherapy and Cancer; Negative Autoimmune Disease, Down Syndrome, Autism, Developmental Delay, Shingles, Falls, Blood Transfusions, Blood Transfusion Reaction, Anesthesia Reactions, Organ Transplant, Radiation Therapy, Hyperbaric Therapy, MRSA, VRSA, Vancomycin-Resistant Enterococci, Human Immunodeficiency Virus (HIV), Chicken Pox, Measles, Mumps, Rubella (Indian Measles), Pertussis, Clostridium Difficile, Breast Cancer, Cervical Cancer, Colorectal Cancer, Lung Cancer, Ovarian Cancer, Prostate Cancer or Testicular Cancer Family History FAMILY HISTORY: Negative Family Psychiatric Problems, Family Respiratory Disorders, Family Cardiac Disorders, Family Gastrointestinal Problems, Family Cancer, Family Surgery or Family Anesthesia Reaction Surgical History SURGICAL: Positive Abdominal Surgery and Gastrostomy; Negative Cardiac Surgery, Open Heart Surgery, Coronary Artery Bypass Graft, Valve Replacement, Vascular Surgery, Coronary Stent, Cardiac Catheterization, Pacemaker, Angiogram, Auto Implanted Cardiovert Defib, Carotid Endarterectomy, Endocrine Surgery, Thyroidectomy, Ear Surgery, Tympanostomy Tube, Eye Surgery, Nose Surgery, Oral Surgery, Tonsillectomy, Adenoidectomy, Cochlear Implant, Corneal Transplant, Throat Surgery, Tracheostomy, Gastric Bypass Surgery, Bowel Surgery, Nephrectomy, Transurethral Resection, Joint Replacement, Amputation, Open Reduction Internal Fixation, Arthroscopy, Neurologic Surgery, Brain Shunt, Mastectomy, Lumpectomy, Hysterectomy, Tubal Ligation, Section, Vasectomy or Organ Transplant Social History SMOKING STATUS: Never smoker Exam Vital Signs Temp Pulse Resp BP Pulse Ox O2 Del Method 98.8 F 91 20 124/71 95 Room Air 02/14/25 22:30 02/14/25 22:30 02/14/25 22:30 02/14/25 22:30 02/14/25 22:30 02/14/25 22:30 Narrative Exam GENERAL APPEARANCE: Elderly , emaciated lady , Alert and oriented. CARDIOVASCULAR: Heart regular, no murmurs LUNGS/CHEST: basal crackles bilaterally ABDOMEN: Soft, nontender, nondistended. No masses. Normal bowel sounds. Abdomibal binder in place, Patient has a feeding tube EXTREMITIES: 2+ edema in the upper extremities SKIN: Skin exam normal without any rashes MUSCULOSKELETAL: emaciated, but able to move all her extremities. NEUROLOGICAL : intubated, sedated Results: Labs 02/14/25 21:44 02/14/25 21:44 Labs: Short CBC 02/14/25 Range/Units 21:44 WBC 3.6 (3.6-11.0) Thou/mm3 Hgb 7.5 L (12.0-16.0) g/dL Hct 22.5 L (36.0-46.0) % Plt Count 60 L D (140-440) Thou/mm3 BMP 02/14/25 21:44 Sodium 134 L Potassium 5.0 Chloride 98 Carbon Dioxide 25.4 BUN 61 H Creatinine 2.2 H Glucose 151 H Calcium 7.4 L Liver Function 02/14/25 Range/Units 21:44 Total Bilirubin 1.0 (0.3-1.2) mg/dL AST 44 H (0-34) U/L ALT 11 (10-49) U/L Alkaline Phosphatase 87 (46-116) U/L Albumin 2.2 L (3.4-4.8) gm/dL Quality Measures Quality Measures none Advance care planning discussed with:: child Medications Home Medications and Allergies Home Medications ?Medication ?Instructions ?Recorded ?Confirmed ?Type sunitinib malate 25 mg capsule 25 mg PO DAILY 08/11/24 11/10/24 History allopurinol 100 mg tablet 100 mg PO DAILY 10/07/24 History (Zyloprim) furosemide 20 mg tablet mg 11/10/24 History Allergies Allergy/AdvReac Type Severity Reaction Status Date / Time No Known Allergies Allergy Verified 11/08/24 22:58 Visit Medications Sodium Chloride (Ns) 1,000 mls @ 100 mls/hr IV .Q10H ONE Stop: 02/15/25 07:17 Last Admin: 02/14/25 22:34 Dose: 100 mls/hr Discontinued Medications Piperacillin/Tazobactam/Dextrose (Zosyn) 3.375 gm in 50 mls @ 100 mls/hr IV X1 ONE Stop: 02/14/25 21:47 Last Infusion: 02/14/25 23:15 Dose: Infused Assessment & Plan Plan The patient is an 89-year-old female, [employer] speaker, past medical history of gastric cancer status post partial gastrectomy, followed by [facility], status post PEG tube, chronic macrocytic anemia, GI bleed, paroxysmal atrial fibrillation?no anticoagulation, who was brought into the emergency room by her daughter following a dislodged PEG tube. ER provider spoke to Dr. Ledesma who recommended bringing the admitting the patient for PEG tube replacement. Daughter also reported that patient has been having fever for the past few days, has been getting Tylenol at home, with no relief. In the ER patient referred to bilateral pneumonia on chest x-ray, normal WBC count but noted anemia, positive gastric occult blood, lactic acidosis 2.8. Noted WILLIE on labs. The patient will be admitted for treatment of sepsis secondary to pneumonia, PEG tube replacement, acute GI bleed. #Sepsis #Pneumonia - IV Zosyn 3.375 every 12 hours - Follow blood cultures and urine culture - IV fluid bolus - Trend lactic acid #GI bleed #Acute blood loss anemia #Replace PEG tube - IV Protonix 40 mg twice daily - Trend H&H, type and cross, transfuse PRBC if hemoglobin less than 7. - Gastroenterology consult to Dr. Ledesma's placed, appreciate recommendations - keep pateint NPO # WILLIE on CKD Baseline creatinine seems to be around 1.6, now presented with WILLIE, creatinine 2.2 likely secondary to sepsis and pneumonia. - Trend CMP daily - Renally dose medications - Avoid nephrotoxic drugs Plan of care discussed with attending physician Georgette PGY 2 Attending Provider Attestation/Addendum 89-year-old female with gastric cancer s/p gastrectomy, atrial fibrillation comes in for dislodged PEG tube. Dr. Ledesma was consulted to reinsert the PEG tube. Patient has chronic anemia with a hemoglobin of 7.5. I discussed with and supervised the resident physician who took care of this patient. I agree with the assessment and plan as above.
[2025-02-15 00:14] LABS: OBG Developer Expiration Date 9/1/2026
[2025-02-15 00:15] LABS: OBG Performed By COOPA1
[2025-02-15 00:16] LABS: OBS Developer Expiration Date 9/1/2026; OBS Developer Lot # 23003; OBS Performed By COOPA1
[2025-02-15 00:52] LABS: Reflex Lactate? Y
[2025-02-15 01:09] LABS: Lactic Acid, 3 HR 2.8 mMol/L (0.4-2.0)
[2025-02-15 01:32] LABS: Collection Type, Urine Clean Catch
[2025-02-15 01:39] LABS: Bilirubin,Urine Negative (Negative); Blood,Urine 1+ (Negative); Clarity,Urine Clear (Clear/Hazy); Color,Urine Yellow (Lt Yel-Yel); Glucose, Urine Negative (Negative); Hyaline Casts,Urine < 1 /hpf (0-1); Ketones,Urine Negative (Negative); Leukocyte Esterase,Urine Positive (Negative); Nitrite,Urine Negative (Negative); PH,Urine 6.5 (5.0-7.0); Protein,Urine Trace (Neg - Trace); RBC,Urine 3 /hpf (0-3); Specific Gravity,Urine 1.016 (1.001-1.035); Squamous Epithelial Cell,Urine 1 /hpf (0-5); Urobilinogen,Urine Negative mg/dL (0.0-1.0); WBC,Urine 138 /hpf (0-5)
[2025-02-15 02:06] LABS: Bilirubin,Urine Negative (Negative); Blood,Urine 1+ (Negative); Clarity,Urine Clear (Clear/Hazy); Color,Urine Yellow (Lt Yel-Yel); Culture Indicated,Urine Yes; Glucose, Urine Negative (Negative); Hyaline Casts,Urine < 1 /hpf (0-1); Ketones,Urine Negative (Negative); Leukocyte Esterase,Urine Positive (Negative); Nitrite,Urine Negative (Negative); PH,Urine 6.5 (5.0-7.0); Protein,Urine Trace (Neg - Trace); RBC,Urine 3 /hpf (0-3); Specific Gravity,Urine 1.016 (1.001-1.035); Squamous Epithelial Cell,Urine 1 /hpf (0-5); Urobilinogen,Urine Negative mg/dL (0.0-1.0); WBC,Urine 138 /hpf (0-5)
[2025-02-15] MEDS: RINGERS LACTATED 500 ML 500 ML 999 ML IV (02:16)
[2025-02-15] MEDS: PANTOPRAZOLE INJ 40 MG VIAL IVP ×3 (02:16→20:39)
--- NOTE | 2025-02-15 02:25 | PC.NURSE ---
Report given to KATIE Delaneymuseum curator
[2025-02-15] MEDS: RINGERS LACTATED 1000 ML 1,000 ML 500 ML IV (05:27)
[2025-02-15 06:38] LABS: Basophils % (Auto) 0 % (0-2.5); Eosinophils % (Auto) 0 % (0-10); Hematocrit 23.8 % (36.0-46.0); Immature Granulocytes % (Auto) 2 % (0-0); Immature Granulocytes Auto 0.08 Thou/mm3 (0.00-0.00); Lymphocytes # (Auto) 1.1 Thou/mm3 (1.0-4.8); Lymphocytes % (Auto) 23 % (10-50); Mean Corpuscular HGB Conc 33.2 g/dl (31.0-37.0); Mean Corpuscular Hemoglobin 34.6 pg (25.0-35.0); Mean Corpuscular Volume 104 fL (80-100); Monocytes # (Auto) 0.2 Thou/mm3 (0.0-0.8); Monocytes % (Auto) 4 % (0-12); Neutrophils # (Auto) 3.5 Thou/mm3 (1.8-7.7); Neutrophils % (Auto) 71 % (37-80); Nucleated Red Blood Cell # 0.25 Thou/mm3 (0.00-0.00); Nucleated Red Blood Cell % 5 /100 WBC (0); RDW Standard Deviation 94.6 fL (36.4-46.3); Red Blood Count 2.28 Miln/mm3 (4.00-5.20); White Blood Count 4.9 Thou/mm3 (3.6-11.0)
[2025-02-15 06:50] LABS: Hemoglobin 7.9 g/dL (12.0-16.0); Platelet Count 43 Thou/mm3 (140-440)
[2025-02-15 07:57] LABS: Alanine Aminotransferase 9 U/L (10-49); Albumin, Serum 2.3 gm/dL (3.4-4.8); Alkaline Phosphatase 76 U/L (46-116); Anion Gap 9 (7-16); Aspartate Amino Transferase 46 U/L (0-34); BUN/Creatinine Ratio 30 Ratio (12-20); Bilirubin,Direct 0.5 mg/dL (0.0-0.3); Blood Urea Nitrogen 57 mg/dL (9-23); Calcium 7.9 mg/dL (8.3-10.6); Cardiac Risk Estimate 4.5 RATIO (3.7-5.6); Chloride 103 mMol/L (98-107); Cholesterol 99 mg/dL (132-200); Creatinine (Component) 1.9 mg/dL (0.6-1.3); Glucose 80 mg/dL (74-106); HDL Cholesterol 22 mg/dL (40-60); LDL Cholesterol,Calculated 56 mg/dL (0-130); Osmolality,Calculated 296 (275-295); Phosphorous 3.8 mg/dL (2.4-5.1); Potassium 4.9 mMol/L (3.4-5.1); Sodium 141 mMol/L (136-145); Total Protein 5.6 gm/dL (5.7-8.2); Triglycerides 104 mg/dL (30-150); eGFR 25 See Note
[2025-02-15 08:03] LABS: Slide Review Platelets confirmed
[2025-02-15 08:13] LABS: Thyroid Stimulating Hormone 5.76 uIU/mL (0.55-4.78)
--- NOTE | 2025-02-15 08:45 | XR_ITS ---
Examination: Abdomen sonogram, complete Date and time of exam: February 15, 2025 1007 hours INDICATIONS: Elevated liver function tests on laboratory examination today. Technique: Multiple real-time grayscale transabdominal sonographic images of the abdomen have been obtained. Findings: Negative for gallstones Gallbladder wall 0.3 cm Common bile duct 0.7 cm no stones Pancreatic head 1.5 cm Aorta not enlarged Liver is irregular in contour, fatty infiltration, 10.3 cm Mild ascites Bilateral pleural effusions partially seen Normal hepatopedal portal venous flow Patent IVC Right kidney 9.6 cm renal cortex 1.3 cm Left kidney 9.8 cm cortex 1.6 cm Moderate bilateral renal parenchymal scar formation Spleen obscured by bowel gas IMPRESSION: Negative for cholelithiasis, normal gallbladder wall Common bile ducts are 0.7 cm but no stones Suspect primary hepatocellular disease, no focal liver lesions Mild ascites Small kidneys with bilateral renal cortical thinning. Moderate bilateral renal parenchymal scar formation
[2025-02-15 08:49] LABS: INR 1.1 (0.9-1.3); Prothrombin Time 11.8 Seconds (9.0-12.2)
[2025-02-15] MEDS: PIPER/TAZO 3.375 GM PREMIX 3.375 GM/50 ML BAG IV ×2 (08:55→20:39)
[2025-02-15] MEDS: RINGERS LACTATED 1000 ML 1,000 ML 40 ML IV (09:07)
--- NOTE | 2025-02-15 09:55 | ESPR_ITS ---
Documentation for date of: 02/15/25 Subjective Subjective Interval history: Overnight admission. Seen and examined at bedside with family present who helps translate. Per family, after patient was transferred to [facility] it was found that she had a gastric tumor that was source of bleeding but not a candidate for embolization. She is also currently on chemotherapy and requested family to bring it in so that we can continue here and has an appointment within the next couple of weeks with her oncologist at [facility]. Patient herself states that PEG tube site is mildly tender and has foul-smelling odor. Tubing itself appears to be a Melissa instead of PEG tube and unclear whether it was placed by family or medical personnel. Vital signs stable, no fevers overnight. No leukocytosis, however patient noted to be on chemotherapy as platelets are also low. Hemoglobin stable from admission and family states that she has not had any melena, hematochezia, hemoptysis, hematemesis, or hematuria. Pending PEG tube exchange. Also clarified with family at bedside patient's code status, and changed to DNR/DNI. Exam Vital Signs Temp Pulse Resp BP Pulse Ox O2 Del Method 97.0 F 78 16 128/71 90 L Room Air 02/15/25 07:54 02/15/25 07:54 02/15/25 07:54 02/15/25 07:54 02/15/25 07:54 02/15/25 04:00 Narrative Exam General: underweight, AOx3, no acute distress, able to speak full sentences HEENT: NC/AT, mucous membranes moist, bilateral sclera anicteric Cardiovascular: regular rate, S1/S2 present, no murmurs appreciated Pulmonary: clear to auscultation bilaterally, no rales/rhonchi/wheezes Abdominal: Melissa (?) in left abdomen with foul-smelling odor and tubing with clear yellow and some solid material, soft, non-tender, non-distended, no rebound/guarding Musculoskeletal: normal ROM, no peripheral edema Skin: warm and dry, intact, no rashes Neuro: CN II-XII intact, no focal deficits Objective Labs 02/15/25 06:10 02/15/25 05:00 Labs: Laboratory Results - last 24 hr 02/14/25 02/14/25 02/15/25 21:44 23:15 01:05 WBC 3.6 RBC 2.14 L Hgb 7.5 L Hct 22.5 L MCV 105 H MCH 35.0 MCHC 33.3 RDW Std Deviation 95.7 H Plt Count 60 L D Neut % (Auto) 74 Lymph % (Auto) 20 [place] % (Auto) 4 Eos % (Auto) 0 Baso % (Auto) 0 Neut # (Auto) 2.6 Lymph # (Auto) 0.7 L [place] # (Auto) 0.2 Eos # (Auto) 0.0 Baso # (Auto) 0.0 Immature Gran # (Auto) 0.07 H Absolute Nucleated RBC 0.22 H Immature Gran % 2 H Nucleated RBC % 6 H Smear Path Review Sent to Pathologist ESR 40 H PT INR Sodium 134 L Potassium 5.0 Chloride 98 Carbon Dioxide 25.4 Anion Gap 11 BUN 61 H Creatinine 2.2 H Estim Creat Clear Calc Not Performed. eGFR 21 L BUN/Creatinine Ratio 28 H Glucose 151 H Calculated Osmolality 288 Lactic Acid 2.8 H 2.8 H Calcium 7.4 L Corrected Calcium 8.8 Phosphorus Magnesium 2.2 Total Bilirubin 1.0 Direct Bilirubin AST 44 H ALT 11 Alkaline Phosphatase 87 C-Reactive Prot, Quant 12.9 H Total Protein 6.1 Albumin 2.2 L Globulin 3.9 H Albumin/Globulin Ratio 0.6 L Triglycerides Cholesterol LDL Cholesterol, Calc HDL Cholesterol Cholesterol/HDL Ratio Procalcitonin 1.33 H TSH Free T4 Ur Collection Type Urine Color Urine Clarity Urine pH Ur Specific [place] Urine Protein Urine Glucose (UA) Urine Ketones Urine Blood Urine Nitrite Urine Bilirubin Urine Urobilinogen (Auto) Ur Leukocyte Esterase Urine RBC Urine WBC Ur Squamous Epith Cells Urine Bacteria Hyaline Casts Ur Culture Indicated? Gastric Occult Blood Positive A Stool Occult Blood Negative Misc Test Result Platelets confirmed Blood Type Antibody Screen Crossmatch Blood Bank Wristband ID 02/15/25 02/15/25 02/15/25 01:10 01:10 01:10 WBC RBC Hgb Hct MCV MCH MCHC RDW Std Deviation Plt Count Neut % (Auto) Lymph % (Auto) [place] % (Auto) Eos % (Auto) Baso % (Auto) Neut # (Auto) Lymph # (Auto) [place] # (Auto) Eos # (Auto) Baso # (Auto) Immature Gran # (Auto) Absolute Nucleated RBC Immature Gran % Nucleated RBC % Smear Path Review ESR PT INR Sodium Potassium Chloride Carbon Dioxide Anion Gap BUN Creatinine Estim Creat Clear Calc eGFR BUN/Creatinine Ratio Glucose Calculated Osmolality Lactic Acid Calcium Corrected Calcium Phosphorus Magnesium Total Bilirubin Direct Bilirubin AST ALT Alkaline Phosphatase C-Reactive Prot, Quant Total Protein Albumin Globulin Albumin/Globulin Ratio Triglycerides Cholesterol LDL Cholesterol, Calc HDL Cholesterol Cholesterol/HDL Ratio Procalcitonin TSH Free T4 Ur Collection Type Clean Catch Clean Catch Urine Color Yellow Yellow Urine Clarity Clear Urine pH Ur Specific [place] Urine Protein Urine Glucose (UA) Urine Ketones Urine Blood Urine Nitrite Urine Bilirubin Urine Urobilinogen (Auto) Ur Leukocyte Esterase Urine RBC Urine WBC Ur Squamous Epith Cells Urine Bacteria Hyaline Casts Ur Culture Indicated? Gastric Occult Blood Stool Occult Blood Misc Test Result Blood Type [facility] ID 02/15/25 02/15/25 02/15/25 01:10 01:10 01:10 WBC RBC Hgb Hct MCV MCH MCHC RDW Std Deviation Plt Count Neut % (Auto) Lymph % (Auto) [place] % (Auto) Eos % (Auto) Baso % (Auto) Neut # (Auto) Lymph # (Auto) [place] # (Auto) Eos # (Auto) Baso # (Auto) Immature Gran # (Auto) Absolute Nucleated RBC Immature Gran % Nucleated RBC % Smear Path Review ESR PT INR Sodium Potassium Chloride Carbon Dioxide Anion Gap BUN Creatinine Estim Creat Clear Calc eGFR BUN/Creatinine Ratio Glucose Calculated Osmolality Lactic Acid Calcium Corrected Calcium Phosphorus Magnesium Total Bilirubin Direct Bilirubin AST ALT Alkaline Phosphatase C-Reactive Prot, Quant Total Protein Albumin Globulin Albumin/Globulin Ratio Triglycerides Cholesterol LDL Cholesterol, Calc HDL Cholesterol Cholesterol/HDL Ratio Procalcitonin TSH Free T4 Ur Collection Type Urine Color Urine Clarity Clear Urine pH 6.5 6.5 Ur Specific [place] 1.016 1.016 Urine Protein Trace Urine Glucose (UA) Urine Ketones Urine Blood Urine Nitrite Urine Bilirubin Urine Urobilinogen (Auto) Ur Leukocyte Esterase Urine RBC Urine WBC Ur Squamous Epith Cells Urine Bacteria Hyaline Casts Ur Culture Indicated? Gastric Occult Blood Stool Occult Blood Misc Test Result Blood Type Antibody Screen [facility] Blood Bank Wristband ID 02/15/25 02/15/25 02/15/25 01:10 01:10 01:10 WBC RBC Hgb Hct MCV MCH MCHC RDW Std Deviation Plt Count Neut % (Auto) Lymph % (Auto) [place] % (Auto) Eos % (Auto) Baso % (Auto) Neut # (Auto) Lymph # (Auto) [place] # (Auto) Eos # (Auto) Baso # (Auto) Immature Gran # (Auto) Absolute Nucleated RBC Immature Gran % Nucleated RBC % Smear Path Review ESR PT INR Sodium Potassium Chloride Carbon Dioxide Anion Gap BUN Creatinine Estim Creat Clear Calc eGFR BUN/Creatinine Ratio Glucose Calculated Osmolality Lactic Acid Calcium Corrected Calcium Phosphorus Magnesium Total Bilirubin Direct Bilirubin AST ALT Alkaline Phosphatase C-Reactive Prot, Quant Total Protein Albumin Globulin Albumin/Globulin Ratio Triglycerides Cholesterol LDL Cholesterol, Calc HDL Cholesterol Cholesterol/HDL Ratio Procalcitonin TSH Free T4 Ur Collection Type Urine Color Urine Clarity Urine pH Ur Specific [place] Urine Protein Trace Urine Glucose (UA) Negative Negative Urine Ketones Negative Negative Urine Blood 1+ A Urine Nitrite Urine Bilirubin Urine Urobilinogen (Auto) Ur Leukocyte Esterase Urine RBC Urine WBC Ur Squamous Epith Cells Urine Bacteria Hyaline Casts Ur Culture Indicated? Gastric Occult Blood Stool Occult Blood Misc Test Result Blood Type Antibody Screen [employer] Wristband ID 02/15/25 02/15/25 02/15/25 01:10 01:10 01:10 WBC RBC Hgb Hct MCV MCH MCHC RDW Std Deviation Plt Count Neut % (Auto) Lymph % (Auto) [place] % (Auto) Eos % (Auto) Baso % (Auto) Neut # (Auto) Lymph # (Auto) [place] # (Auto) Eos # (Auto) Baso # (Auto) Immature Gran # (Auto) Absolute Nucleated RBC Immature Gran % Nucleated RBC % Smear Path Review ESR PT INR Sodium Potassium Chloride Carbon Dioxide Anion Gap BUN Creatinine Estim Creat Clear Calc eGFR BUN/Creatinine Ratio Glucose Calculated Osmolality Lactic Acid Calcium Corrected Calcium Phosphorus Magnesium Total Bilirubin Direct Bilirubin AST ALT Alkaline Phosphatase C-Reactive Prot, Quant Total Protein Albumin Globulin Albumin/Globulin Ratio Triglycerides Cholesterol LDL Cholesterol, Calc HDL Cholesterol Cholesterol/HDL Ratio Procalcitonin TSH Free T4 Ur Collection Type Urine Color Urine Clarity Urine pH Ur Specific [place] Urine Protein Urine Glucose (UA) Urine Ketones Urine Blood 1+ A Urine Nitrite Negative Negative Urine Bilirubin Negative Negative Urine Urobilinogen (Auto) Negative Ur Leukocyte Esterase Urine RBC Urine WBC Ur Squamous Epith Cells Urine Bacteria Hyaline Casts Ur Culture Indicated? Gastric Occult Blood Stool Occult Blood Misc Test Result Blood Type Antibody Screen [employer] Wristband ID 02/15/25 02/15/25 02/15/25 01:10 01:10 01:10 WBC RBC Hgb Hct MCV MCH MCHC RDW Std Deviation Plt Count Neut % (Auto) Lymph % (Auto) [place] % (Auto) Eos % (Auto) Baso % (Auto) Neut # (Auto) Lymph # (Auto) [place] # (Auto) Eos # (Auto) Baso # (Auto) Immature Gran # (Auto) Absolute Nucleated RBC Immature Gran % Nucleated RBC % Smear Path Review ESR PT INR Sodium Potassium Chloride Carbon Dioxide Anion Gap BUN Creatinine Estim Creat Clear Calc eGFR BUN/Creatinine Ratio Glucose Calculated Osmolality Lactic Acid Calcium Corrected Calcium Phosphorus Magnesium Total Bilirubin Direct Bilirubin AST ALT Alkaline Phosphatase C-Reactive Prot, Quant Total Protein Albumin Globulin Albumin/Globulin Ratio Triglycerides Cholesterol LDL Cholesterol, Calc HDL Cholesterol Cholesterol/HDL Ratio Procalcitonin TSH Free T4 Ur Collection Type Urine Color Urine Clarity Urine pH Ur Specific [place] Urine Protein Urine Glucose (UA) Urine Ketones Urine Blood Urine Nitrite Urine Bilirubin Urine Urobilinogen (Auto) Negative Ur Leukocyte Esterase Positive Positive Urine RBC 3 3 Urine WBC 138 H Ur Squamous Epith Cells Urine Bacteria Hyaline Casts Ur Culture Indicated? Gastric Occult Blood Stool Occult Blood Misc Test Result Blood Type Antibody Screen [facility] Wristband ID 02/15/25 02/15/25 02/15/25 01:10 01:10 01:10 WBC RBC Hgb Hct MCV MCH MCHC RDW Std Deviation Plt Count Neut % (Auto) Lymph % (Auto) [place] % (Auto) Eos % (Auto) Baso % (Auto) Neut # (Auto) Lymph # (Auto) [place] # (Auto) Eos # (Auto) Baso # (Auto) Immature Gran # (Auto) Absolute Nucleated RBC Immature Gran % Nucleated RBC % Smear Path Review ESR PT INR Sodium Potassium Chloride Carbon Dioxide Anion Gap BUN Creatinine Estim Creat Clear Calc eGFR BUN/Creatinine Ratio Glucose Calculated Osmolality Lactic Acid Calcium Corrected Calcium Phosphorus Magnesium Total Bilirubin Direct Bilirubin AST ALT Alkaline Phosphatase C-Reactive Prot, Quant Total Protein Albumin Globulin Albumin/Globulin Ratio Triglycerides Cholesterol LDL Cholesterol, Calc HDL Cholesterol Cholesterol/HDL Ratio Procalcitonin TSH Free T4 Ur Collection Type Urine Color Urine Clarity Urine pH Ur Specific [place] Urine Protein Urine Glucose (UA) Urine Ketones Urine Blood Urine Nitrite Urine Bilirubin Urine Urobilinogen (Auto) Ur Leukocyte Esterase Urine RBC Urine WBC 138 H Ur Squamous Epith Cells 1 1 Urine Bacteria None None Hyaline Casts < 1 Ur Culture Indicated? Gastric Occult Blood Stool Occult Blood Misc Test Result Blood Type Antibody Screen [facility] Blood Bank Wristband ID 02/15/25 02/15/25 02/15/25 01:10 01:50 05:00 WBC RBC Hgb Hct MCV MCH MCHC RDW Std Deviation Plt Count Neut % (Auto) Lymph % (Auto) [place] % (Auto) Eos % (Auto) Baso % (Auto) Neut # (Auto) Lymph # (Auto) [place] # (Auto) Eos # (Auto) Baso # (Auto) Immature Gran # (Auto) Absolute Nucleated RBC Immature Gran % Nucleated RBC % Smear Path Review ESR PT INR Sodium 141 Potassium 4.9 Chloride 103 Carbon Dioxide 29.0 Anion Gap 9 BUN 57 H Creatinine 1.9 H Estim Creat Clear Calc Not Performed. eGFR 25 L BUN/Creatinine Ratio 30 H Glucose 80 D Calculated Osmolality 296 H Lactic Acid Calcium 7.9 L Corrected Calcium Phosphorus 3.8 Magnesium 2.0 Total Bilirubin 1.0 Direct Bilirubin 0.5 H AST 46 H ALT 9 L Alkaline Phosphatase 76 C-Reactive Prot, Quant Total Protein 5.6 L Albumin 2.3 L Globulin Albumin/Globulin Ratio Triglycerides 104 Cholesterol 99 L LDL Cholesterol, Calc 56 HDL Cholesterol 22 L Cholesterol/HDL Ratio 4.5 Procalcitonin TSH 5.76 H Free T4 0.70 L Ur Collection Type Urine Color Urine Clarity Urine pH Ur Specific [place] Urine Protein Urine Glucose (UA) Urine Ketones Urine Blood Urine Nitrite Urine Bilirubin Urine Urobilinogen (Auto) Ur Leukocyte Esterase Urine RBC Urine WBC Ur Squamous Epith Cells Urine Bacteria Hyaline Casts < 1 Ur Culture Indicated? Yes Gastric Occult Blood Stool Occult Blood Misc Test Result Blood Type A Positive Antibody Screen NEGATIVE Crossmatch See Detail Blood Bank Wristband ID Yes 02/15/25 02/15/25 06:10 07:49 WBC 4.9 RBC 2.28 L Hgb 7.9 L Hct 23.8 L MCV 104 H MCH 34.6 MCHC 33.2 RDW Std Deviation 94.6 H Plt Count 43 L D Neut % (Auto) 71 Lymph % (Auto) 23 [place] % (Auto) 4 Eos % (Auto) 0 Baso % (Auto) 0 Neut # (Auto) 3.5 Lymph # (Auto) 1.1 [place] # (Auto) 0.2 Eos # (Auto) 0.0 Baso # (Auto) 0.0 Immature Gran # (Auto) 0.08 H Absolute Nucleated RBC 0.25 H Immature Gran % 2 H Nucleated RBC % 5 H Smear Path Review ESR PT 11.8 INR 1.1 Sodium Potassium Chloride Carbon Dioxide Anion Gap BUN Creatinine Estim Creat Clear Calc eGFR BUN/Creatinine Ratio Glucose Calculated Osmolality Lactic Acid Calcium Corrected Calcium Phosphorus Magnesium Total Bilirubin Direct Bilirubin AST ALT Alkaline Phosphatase C-Reactive Prot, Quant Total Protein Albumin Globulin Albumin/Globulin Ratio Triglycerides Cholesterol LDL Cholesterol, Calc HDL Cholesterol Cholesterol/HDL Ratio Procalcitonin TSH Free T4 Ur Collection Type Urine Color Urine Clarity Urine pH Ur Specific [place] Urine Protein Urine Glucose (UA) Urine Ketones Urine Blood Urine Nitrite Urine Bilirubin Urine Urobilinogen (Auto) Ur Leukocyte Esterase Urine RBC Urine WBC Ur Squamous Epith Cells Urine Bacteria Hyaline Casts Ur Culture Indicated? Gastric Occult Blood Stool Occult Blood Misc Test Result Platelets confirmed Blood Type Antibody Screen Crossmatch Blood Bank Wristband ID Quality Measures Quality Measures none Advance care planning discussed with:: patient and child Assessment & Plan Assessment Current Active Medications: Generic Name Dose Route Start Last Admin Trade Name Freq PRN Reason Stop Dose Admin Acetaminophen 650 mg 02/15/25 00:39 Acetaminophen 325 Mg Tablet PO 03/17/25 00:38 Q6H PRN PAIN OR FEVER > 101 Piperacillin/Tazobactam/Dextrose 3.375 gm in 50 mls @ 12.5 mls/hr 02/15/25 09:00 02/15/25 08:55 Zosyn IV 02/22/25 08:59 12.5 mls/hr Q12HR LAKESHA Administration Protocol Lactated Ringer's 1,000 mls @ 40 mls/hr 02/15/25 07:35 02/15/25 09:07 Lactated Ringers IV 03/17/25 07:34 40 mls/hr .Q24H LAKESHA Administration Ondansetron HCl 4 mg 02/15/25 00:39 Ondansetron Inj 2 Mg/Ml Inj 2 Ml IV 03/17/25 00:38 Q6H PRN NAUSEA OR VOMITING Protocol Pantoprazole Sodium 40 mg 02/15/25 09:00 02/15/25 08:54 Pantoprazole Inj 40 Mg Vial IVP 03/17/25 08:59 40 mg BID LAKESHA Administration Pharmacy Consult 1 each 02/15/25 01:08 Pharmacy Renal Dose Adjustment 1 Ea XX 03/17/25 01:07 PRN PRN CONSULT Sennosides 2 tab 02/15/25 00:39 Senna Tablet PO 03/17/25 00:38 BID PRN CONSTIPATION Protocol Plan Stefani Harris is an 88-year-old Tagalog-speaking female with a 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 #PEG tube dislodgment #? PEG tube site infection #History of GI bleed #Acute blood loss anemia #History of gastric cancer s/p partial gastrectomy on chemotherapy Patient has history of gastric cancer status post partial gastrectomy and followed by [facility] oncology and status post PEG tube placement. She presents because of PEG tube dislodgment and currently appears to have a Melissa placed, unsure if placed by medical personnel or family. Family states that at [facility], found to have a tumor as source of bleeding but not a surgical candidate for embolization. Family also states that patient has not had any melena, hematochezia, hemoptysis, hematemesis, or hematuria. ? GI consulted, appreciate recommendations ? Pending PEG tube exchange ? Trend H&H and transfuse if hemoglobin less than 7 ? Currently n.p.o. ? Protonix 40 mg IV twice dailu #Community acquired pneumonia, bacterial vs viral #Pleural effusions CXR showed moderate CHF with mild large no cardiac contour with moderate pleural effusions; consider superimposed pneumonia in lung bases. No fever or leukocytosis but ESR elevated at 40, CRP elevated at 13, and procal elevated at 1.33. Elevated acute phase reactants may be secondary to pneumonia vs G-tube site infection. ? IV Zosyn 3.375 every 12 hours ? Blood culture 02/14: NGTD ? Urine culture 02/15: NGTD ? LR at 40 cc/hr ? Trend lactic acid #Acute kidney injury, likely prerenal in setting of FTT and/or blood loss Baseline creatinine seems to be around 1.0 as values from 10/2024 were in ICU. Now presents with WILLIE as creatinine 2.2, likely secondary to infection/pneumonia vs FTT vs blood loss. ? Trend CMP daily ? Renally dose medications ? Avoid nephrotoxic drugs ? IVF as above Hospital management: Disposition: pending G-tube exchange, on IV antibiotics for pneumonia Fluids: LR at 40 cc/hr given weight Diet: NPO for PEG tube exchange Lines: PIV, PEG tube DVT prophylaxis: SCDs GI prophylaxis: PPI twice daily CODE STATUS: DNR/DNI ----- Plan discussed with attending physician Dr. Brandon Leal MD PGY-1 Internal Medicine Attending Provider Attestation/Addendum I attest that I was physically present for the evaluation, physical examination, lab and imaging review of the patient with the residents. I discussed the case with the residents and agree with the findings and plans of care as documented above. Patient is an 89 years old female with past medical history of gastric cancer status post partial gastrectomy status post PEG tube, chronic microcytic anemia, GI bleeding, paroxysmal A-fib who presented to the ED after her PEG tube was dislodged. Patient was also found to have pneumonia and acute blood loss anemia and likely GI bleed and was admitted overnight. At bedside today, she appears comfortable, family at bedside stated that patient accidentally pulled out her PEG tube. Also noted that her hemoglobin had dropped to 7.5 yesterday from 11 on last visit. This morning, hemoglobin remained stable 7.9 today. Vital signs are stable. Her kidney function improved slightly, BUN/creatinine 57/1.9 today. Lactic acid also normalized. Abdominal ultrasound shows small kidneys with bilateral renal cortical thinning. Cultures have been obtained. Continues to be on IV antibiotics, IV Zosyn. We will also continue with gentle Ringer's lactate at 40 cc/h. Protonix IV twice daily. Gastroenterology following, patient has been NPO. Jamil Taylor MD
--- NOTE | 2025-02-15 10:21 | PD.IMCONS ---
HPI Data of Consult Requesting Physician: Gary Camarillo MD Primary Care Provider: Physician No Primary/Family Consult Narrative Reason for consult: Dislodged PEG tube History of present illness: 89 years old female well-known to me from the past because I put the original PEG tube into her during her previous hospitalization She was admitted because the PEG tube has dislodged She has a history of gastric carcinoma status post partial gastrectomy at [facility] paroxysmal atrial fibrillation not on any anticoagulation at the moment because of previous history of GI bleed cc:: cc: Gary Camarillo MD Review of Systems Review of Systems Systems Reviewed: All systems reviewed, normal except as documented Past Medical History Surgical History OTHER SURGICAL HX: As in the history of present illness Meds Home Medications and Allergies Home Medications ?Medication ?Instructions ?Recorded ?Confirmed ?Type sunitinib malate 25 mg capsule 25 mg PO DAILY 08/11/24 11/10/24 History allopurinol 100 mg tablet 100 mg PO DAILY 10/07/24 11/10/24 History (Zyloprim) furosemide 20 mg tablet mg 11/10/24 History Allergies Allergy/AdvReac Type Severity Reaction Status Date / Time No Known Allergies Allergy Verified 11/08/24 22:58 Exam Vital Signs Temp Pulse Resp BP Pulse Ox O2 Del Method 97.0 F 78 16 128/71 90 L Room Air 02/15/25 07:54 02/15/25 07:54 02/15/25 07:54 02/15/25 07:54 02/15/25 07:54 02/15/25 04:00 Constitutional Comments: Chronically ill-appearing Routine Respiratory Exam Comments: Normal to auscultation Routine Abdominal Exam Comments: The PEG tube appears to be dislodged and stuck in the anterior abdominal wall and suggests bleeding from the stoma site Results Labs 02/15/25 06:10 02/15/25 05:00 Labs: Short CBC 02/14/25 02/15/25 Range/Units 21:44 06:10 WBC 3.6 4.9 (3.6-11.0) Thou/mm3 Hgb 7.5 L 7.9 L (12.0-16.0) g/dL Hct 22.5 L 23.8 L (36.0-46.0) % Plt Count 60 L D 43 L D (140-440) Thou/mm3 BMP 02/14/25 02/15/25 21:44 05:00 Sodium 134 L 141 Potassium 5.0 4.9 Chloride 98 103 Carbon Dioxide 25.4 29.0 BUN 61 H 57 H Creatinine 2.2 H 1.9 H Glucose 151 H 80 D Calcium 7.4 L 7.9 L Liver Function 02/14/25 02/15/25 Range/Units 21:44 05:00 Total Bilirubin 1.0 1.0 (0.3-1.2) mg/dL Direct Bilirubin 0.5 H (0.0-0.3) mg/dL AST 44 H 46 H (0-34) U/L ALT 11 9 L (10-49) U/L Alkaline Phosphatase 87 76 (46-116) U/L Albumin 2.2 L 2.3 L (3.4-4.8) gm/dL Urine 02/15/25 02/15/25 02/15/25 Range/Units 01:10 01:10 01:10 Urine Color Yellow Yellow (Lt Yel-Yel) Urine Clarity Clear Clear (Clear/Hazy) Urine pH 6.5 (5.0-7.0) Ur Specific [place] (1.001-1.035) Urine Protein (Neg - Trace) Urine Glucose (UA) (Negative) 02/15/25 02/15/25 02/15/25 Range/Units 01:10 01:10 01:10 Urine Color (Lt Yel-Yel) Urine Clarity (Clear/Hazy) Urine pH 6.5 (5.0-7.0) Ur Specific [place] 1.016 1.016 (1.001-1.035) Urine Protein Trace Trace (Neg - Trace) Urine Glucose (UA) Negative (Negative) 02/15/25 Range/Units 01:10 Urine Color (Lt Yel-Yel) Urine Clarity (Clear/Hazy) Urine pH (5.0-7.0) Ur Specific [place] (1.001-1.035) Urine Protein (Neg - Trace) Urine Glucose (UA) Negative (Negative) Assessment and Plan Additional Assessment & Plan Additional Plan: # Dislodged PEG tube Plan Consent obtained from the daughters for fiberoptic upper endoscopy removal of the gastric PEG tube and placement of a new under intravenous moderate sedation Will proceed with the procedure Other medical problems include # Gastric carcinoma status post partial gastric resection followed at [facility] # Paroxysmal atrial fibrillation not on any anticoagulation Thank you very much for the opportunity to participate in the care of this patient
[2025-02-15 12:30] LABS: Lactate (Lactic Acid) 1.3 mMol/L (0.4-2.0)
--- NOTE | 2025-02-15 13:57 | SUR.PHASEI ---
dressing to abdomen clean, dry, and intact
--- NOTE | 2025-02-15 13:57 | SUR.PHASEI ---
pt arrived to PACU on room air stating at 90%. pt placed on 3 L NC and oxygen returned to 95%, pt breathing shallow and not responsive to voice or pain, blood pressure low- map below 65, placed pt in trendelenburg position-will inform MD Ledesma, report from Lidia WILSON
--- NOTE | 2025-02-15 14:05 | SUR.PHASEI ---
BP improving, pt remains unresponsive to voice/pain stimuli
--- NOTE | 2025-02-15 14:16 | SUR.PHASEI ---
pt continues to be non responsive to voice and pain, informed MD Ledesma, verbal orders given, will follow
[2025-02-15] MEDS: FLUMAZENIL INJ 0.1 MG/ML VIAL 10 ML 0.2 MG IVP (14:22)
--- NOTE | 2025-02-15 15:31 | SUR.PHASEI ---
pt drowsy but arouses to voice, breathing unlabored, dressing to abdomen clean, dry, and intact, VS stable, report called to jonathon WILSON, pt transferred to room at this time.
--- NOTE | 2025-02-15 15:52 | PC.DIETICIAN ---
Nutrition prescription Jevity 1.5 at 20 ml/hr via PEG tube by pump. Advance 10 ml every 8 hrs to goal rate of 40 ml/hr x 24 hrs. If no IV fluids, water flushes of 30 ml/hr (or per MD).
[2025-02-15 16:17] LABS: Lactate (Lactic Acid) 1.5 mMol/L (0.4-2.0)
[2025-02-15] MEDS: HYDROcodone/APAP 5/325 TABLET 1 TAB PO (16:22)
--- NOTE | 2025-02-15 16:32 | PC.PT ---
Attempt to initiate PT evaluation at 1500, but patient was in the procedure. PT eval witheld.
--- NOTE | 2025-02-15 21:51 | PC.NURSE ---
Informed Dr. Chung regarding patient's new peg tube is leaking moderate amount. No bleeding noticed when nurse assessed area. Nurse removed old socked dressing and applied new dressing to site. Per MD, monitor site and will inform GI Dr. Ledesma. Patient is currently resting in bed and is showing no sign of pain or distress. Charge nurse also made aware.
[2025-02-15 22:14] LABS: Lactate (Lactic Acid) 2.3 mMol/L (0.4-2.0)
[2025-02-16] VITALS (14 sets, daily range): BP systolic 109–131; BP diastolic 53–71; PULSE 65–88; RESP 13–20; TEMP 35.9–37.1; O2SAT 94–100; BMI 16.1
[2025-02-16 01:08] LABS: Reflex Lactate? Y
[2025-02-16 02:30] LABS: Lactic Acid, 3 HR 3.1 mMol/L (0.4-2.0)
--- NOTE | 2025-02-16 06:44 | PC.NURSE ---
Contacted Dr. Ledesma regarding the patient's PEG tube site is leaking. Per Dr. Baltazar maher the site and change the dressing when needed.
[2025-02-16 06:52] LABS: Alanine Aminotransferase < 7 U/L (10-49); Albumin, Serum 1.9 gm/dL (3.4-4.8); Albumin/Globulin Ratio 0.6 (1.2-2.2); Alkaline Phosphatase 69 U/L (46-116); Anion Gap 8 (7-16); Aspartate Amino Transferase 36 U/L (0-34); BUN/Creatinine Ratio 29 Ratio (12-20); Bilirubin,Total 0.7 mg/dL (0.3-1.2); Blood Urea Nitrogen 47 mg/dL (9-23); Calcium 7.6 mg/dL (8.3-10.6); Calcium (Corrected) 9.3 mg/dL (8.5-10.1); Carbon Dioxide 29.8 mMol/L (20.0-31.0); Chloride 104 mMol/L (98-107); Creatinine (Component) 1.6 mg/dL (0.6-1.3); Estimated Creatinine Clearance 13.9 mL/min (>60); Globulin 3.2 gm/dL (2.3-3.5); Glucose 162 mg/dL (74-106); Osmolality,Calculated 299 (275-295); Potassium 5.1 mMol/L (3.4-5.1); Sodium 142 mMol/L (136-145); Total Protein 5.1 gm/dL (5.7-8.2); eGFR 31 See Note
[2025-02-16 07:36] LABS: Basophils % (Auto) 0 % (0-2.5); Eosinophils % (Auto) 0 % (0-10); Hematocrit 20.8 % (36.0-46.0); Immature Granulocytes % (Auto) 1 % (0-0); Immature Granulocytes Auto 0.04 Thou/mm3 (0.00-0.00); Lymphocytes # (Auto) 1.2 Thou/mm3 (1.0-4.8); Lymphocytes % (Auto) 31 % (10-50); Mean Corpuscular HGB Conc 33.2 g/dl (31.0-37.0); Mean Corpuscular Hemoglobin 34.8 pg (25.0-35.0); Mean Corpuscular Volume 105 fL (80-100); Monocytes # (Auto) 0.1 Thou/mm3 (0.0-0.8); Monocytes % (Auto) 4 % (0-12); Neutrophils # (Auto) 2.4 Thou/mm3 (1.8-7.7); Neutrophils % (Auto) 64 % (37-80); Nucleated Red Blood Cell # 0.21 Thou/mm3 (0.00-0.00); Nucleated Red Blood Cell % 6 /100 WBC (0); RDW Standard Deviation 93.3 fL (36.4-46.3); Red Blood Count 1.98 Miln/mm3 (4.00-5.20); White Blood Count 3.8 Thou/mm3 (3.6-11.0)
[2025-02-16 07:51] LABS: Hemoglobin 6.9 g/dL (12.0-16.0); Platelet Count 39 Thou/mm3 (140-440)
[2025-02-16] MEDS: PANTOPRAZOLE INJ 40 MG VIAL IVP ×2 (08:30→20:14)
[2025-02-16] MEDS: PIPER/TAZO 3.375 GM PREMIX 3.375 GM/50 ML BAG IV (08:30)
[2025-02-16 08:44] LABS: Lactate (Lactic Acid) 2.3 mMol/L (0.4-2.0)
[2025-02-16 09:09] LABS: Slide Review Platelets confirmed
[2025-02-16] MEDS: RINGERS LACTATED 1000 ML 1,000 ML 40 ML IV (09:27)
--- NOTE | 2025-02-16 10:45 | PC.PT ---
Patient had a Hgb of 6.9 and was receiving a blood transfusion at 9:40. Will hold PT eval at this time for patient safety post blood transfusion.
--- NOTE | 2025-02-16 11:04 | PC.SS ---
Initial assessment: patient is an 89 year old female admitted for sepsis. Patient's daughter, Angie Harris at bed side to provide information. Patient resides at home with family. [place] [address] [phone] Patient's emergency contact and alternate surrogate medical decision maker to be her daughter, Angie Harris. Per daughter, the patient has a walker at home and requires assistance with ADL's. Per daughter, patient PCP is Gopal Dawson. Pharmacy of choice is [facility]. Per daughter, the patient to return home upon discharge and is requesting home health services with preferred agency being [facility]. Daughter informs she would like to transport the patient home at the time of discharge. Community resource handout provided to patient's daughter at bed side for their review. D/c plan: home health Next of kin: daughter, Angie Harris
[2025-02-16 11:38] LABS: Reflex Lactate? Y
--- NOTE | 2025-02-16 14:24 | ESPR_ITS ---
<Statement entered by Chinedu Ashley MD - 02/17/25 08:52> 88-year-old female with gastric adenocarcinoma status post gastrectomy currently on chemotherapy with subsequent PEG tube placement and multiple admissions for upper GI bleed secondary to malignancy, atrial fibrillation not on anticoagulation secondary to GI bleed and presented for dislodgment of G-tube with foul-smelling odor. During course of hospitalization patient was evaluated by gastroenterology and subsequently had PEG tube exchanged. As of now, patient continues to have tumor bleeding requiring blood transfusion with last being today of 1 unit PRBC. As of now, plan to give 1 unit of PRBC monitor hemoglobin for another 24 hours and plan to discharge the patient tomorrow morning. Of note, overall prognosis appears to be guarded and recommend close follow-up with [facility] oncology.I reviewed above note and agree with findings and plans. I have also personally examined the patient with medicine team and went over assessment and plan with medical team including internet manager and resident physician. <Statement entered by Dana Acuña MD - 02/16/25 15:22> Patient seen and examined at bedside. Status post PEG tube placement, patient's overnight nurse noted PEG tube to have a small leak, however there does not appear to be a leakage and reached out to GI for further recommendations. GI states that it is expected for small discharge status post procedure. Patient also presented with a low hemoglobin of 6.9, and will transfuse 2 units PRBC. Will continue to monitor for any signs of bleeding, anticipate discharge in 24 hours. Lactic acid is downtrending currently at 2.3, and WILLIE is improving. I discussed with and supervised the internet manager physician who took care of this patient. I personally saw and examined the patient and discussed the assessment and plan with the entire medicine team, including my attending Dr. Ashley, I agree with most of the assessment and plan as documented below Dana Acuña M.D. PGY-2 Disclaimer: Despite multiple revisions, due to the dictation software being used, the document bellow may not be free of grammatical errors including phonetic/typographic errors. However, this does not deter from our commitment to providing health care in the patient's best interest in mind. Documentation for date of: 02/16/25 Subjective Subjective Interval history: No acute overnight events. Per canal superintendent, PEG tube was leaking after it was replaced but after examination at bedside there does not appear to be any leakage. Spoke to Dr. Ledesma who stated that this is to be expected and can still be discharged from the standpoint. However, CBC showed hemoglobin of 6.9 but down trended from 7.9 and will transfuse 2 units PRBC and continue to monitor for signs of bleeding and plan for discharge within next 24 hours. WILLIE improving, lactic acid peaked at 3.1 and downtrending now at 2.3. Exam Vital Signs Temp Pulse Resp BP Pulse Ox O2 Del Method O2 Flow Rate 98.8 F 80 14 122/67 98 Nasal Cannula 2 02/16/25 13:22 02/16/25 13:22 02/16/25 13:22 02/16/25 13:22 02/16/25 13:22 02/16/25 13:22 02/16/25 13:22 Narrative Exam General: underweight, AOx3, no acute distress, able to speak full sentences HEENT: NC/AT, mucous membranes moist, bilateral sclera anicteric Cardiovascular: regular rate, S1/S2 present, no murmurs appreciated Pulmonary: clear to auscultation bilaterally, no rales/rhonchi/wheezes Abdominal: PEG tube in place without surrounding erythema or discharge, soft, non-tender, non-distended, no rebound/guarding Musculoskeletal: normal ROM, no peripheral edema Skin: warm and dry, intact, no rashes Neuro: CN II-XII intact, no focal deficits Objective Labs 02/16/25 14:48 02/16/25 05:12 Labs: Laboratory Results - last 24 hr 02/15/25 02/15/25 02/15/25 01:50 16:00 22:00 WBC RBC Hgb Hct MCV MCH MCHC RDW Std Deviation Plt Count Neut % (Auto) Lymph % (Auto) [place] % (Auto) Eos % (Auto) Baso % (Auto) Neut # (Auto) Lymph # (Auto) [place] # (Auto) Eos # (Auto) Baso # (Auto) Immature Gran # (Auto) Absolute Nucleated RBC Immature Gran % Nucleated RBC % Sodium Potassium Chloride Carbon Dioxide Anion Gap BUN Creatinine Estim Creat Clear Calc eGFR BUN/Creatinine Ratio Glucose Calculated Osmolality Lactic Acid 1.5 2.3 H Calcium Corrected Calcium Total Bilirubin AST ALT Alkaline Phosphatase Total Protein Albumin Globulin Albumin/Globulin Ratio Misc Test Result Blood Type A Positive Antibody Screen NEGATIVE Crossmatch See Detail Blood Bank Wristband ID Yes 02/16/25 02/16/25 02/16/25 02:19 05:12 07:00 WBC 3.8 RBC 1.98 L* Hgb 6.9 L* Hct 20.8 L* MCV 105 H MCH 34.8 MCHC 33.2 RDW Std Deviation 93.3 H Plt Count 39 L Neut % (Auto) 64 Lymph % (Auto) 31 [place] % (Auto) 4 Eos % (Auto) 0 Baso % (Auto) 0 Neut # (Auto) 2.4 Lymph # (Auto) 1.2 [place] # (Auto) 0.1 Eos # (Auto) 0.0 Baso # (Auto) 0.0 Immature Gran # (Auto) 0.04 H Absolute Nucleated RBC 0.21 H Immature Gran % 1 H Nucleated RBC % 6 H Sodium 142 Potassium 5.1 Chloride 104 Carbon Dioxide 29.8 Anion Gap 8 BUN 47 H Creatinine 1.6 H Estim Creat Clear Calc 13.9 L eGFR 31 L BUN/Creatinine Ratio 29 H Glucose 162 H D Calculated Osmolality 299 H Lactic Acid 3.1 H Calcium 7.6 L Corrected Calcium 9.3 Total Bilirubin 0.7 AST 36 H ALT < 7 L Alkaline Phosphatase 69 Total Protein 5.1 L Albumin 1.9 L Globulin 3.2 Albumin/Globulin Ratio 0.6 L Misc Test Result Platelets confirmed Blood Type Antibody Screen Crossmatch Blood Bank Wristband ID 02/16/25 08:30 WBC RBC Hgb Hct MCV MCH MCHC RDW Std Deviation Plt Count Neut % (Auto) Lymph % (Auto) [place] % (Auto) Eos % (Auto) Baso % (Auto) Neut # (Auto) Lymph # (Auto) [place] # (Auto) Eos # (Auto) Baso # (Auto) Immature Gran # (Auto) Absolute Nucleated RBC Immature Gran % Nucleated RBC % Sodium Potassium Chloride Carbon Dioxide Anion Gap BUN Creatinine Estim Creat Clear Calc eGFR BUN/Creatinine Ratio Glucose Calculated Osmolality Lactic Acid 2.3 H Calcium Corrected Calcium Total Bilirubin AST ALT Alkaline Phosphatase Total Protein Albumin Globulin Albumin/Globulin Ratio Misc Test Result Blood Type Antibody Screen Crossmatch Blood Bank Wristband ID Quality Measures Quality Measures none Advance care planning discussed with:: patient and child Assessment & Plan Assessment Current Active Medications: Generic Name Dose Route Start Last Admin Trade Name Freq PRN Reason Stop Dose Admin Acetaminophen 650 mg 02/15/25 16:06 Acetaminophen 325 Mg Tablet PO 03/17/25 00:38 Q6H PRN PAIN OR FEVER > 101 Hydrocodone Bitart/Acetaminophen 1 tab 02/15/25 16:04 02/15/25 16:22 Hydrocodone/Apap 5/325 Tablet PO 02/20/25 16:03 1 tab Q6HR PRN Administration PAIN SCALE 4-10(Mod-Sev Piperacillin/Tazobactam/Dextrose 3.375 gm in 50 mls @ 12.5 mls/hr 02/15/25 09:00 02/16/25 08:30 Zosyn IV 02/22/25 08:59 12.5 mls/hr Q12HR LAKESHA Administration Protocol Lactated Ringer's 1,000 mls @ 40 mls/hr 02/15/25 07:35 02/16/25 09:27 Lactated Ringers IV 03/17/25 07:34 40 mls/hr .Q24H LAKESHA Administration Ondansetron HCl 4 mg 02/15/25 00:39 Ondansetron Inj 2 Mg/Ml Inj 2 Ml IV 03/17/25 00:38 Q6H PRN NAUSEA OR VOMITING Protocol Pantoprazole Sodium 40 mg 02/15/25 09:00 02/16/25 08:30 Pantoprazole Inj 40 Mg Vial IVP 03/17/25 08:59 40 mg BID LAKESHA Administration Pharmacy Consult 1 each 02/15/25 01:08 Pharmacy Renal Dose Adjustment 1 Ea XX 03/17/25 01:07 PRN PRN CONSULT Sennosides 2 tab 02/15/25 00:39 Senna Tablet PO 03/17/25 00:38 BID PRN CONSTIPATION Protocol Plan Stefani Harris is an 88-year-old Tagalog-speaking female with a past medical history of gastric cancer s/p partial gastrectomy on sunitinib malate (following [facility] oncology) s/p PEG tube, upper GI bleed in 10/2024 from tumor, chronic macrocytic anemia, FTT, and paroxysmal A-fib (no AC secondary to UGIB) who is admitted for dislodgment of G-tube with foul-smelling odor. #PEG tube dislodgment #? PEG tube site infection #History of GI bleed #Acute blood loss anemia #History of gastric cancer s/p partial gastrectomy on chemotherapy Patient has history of gastric cancer status post partial gastrectomy and followed by [facility] oncology and status post PEG tube placement. She presents because of PEG tube dislodgment and currently appears to have a Melissa placed, unsure if placed by medical personnel or family. Family states that at [facility], found to have a tumor as source of bleeding but not a surgical candidate for embolization. Family also states that patient has not had any melena, hematochezia, hemoptysis, hematemesis, or hematuria. ? GI consulted, appreciate recommendations ? S/p PEG tube exchange ? Transfusing 2 units pRBC, pending post-transfusion H&H ? Transfuse if hemoglobin less than 7 ? Protonix 40 mg IV twice dailu #Community acquired pneumonia, bacterial vs viral #Pleural effusions CXR showed moderate CHF with mild large no cardiac contour with moderate pleural effusions; consider superimposed pneumonia in lung bases. No fever or leukocytosis but ESR elevated at 40, CRP elevated at 13, and procal elevated at 1.33. Elevated acute phase reactants may be secondary to pneumonia vs G-tube site infection. Zosyn (02/14-) ? Blood culture 02/14: NGTD ? Urine culture 02/15: NGTD ? LR at 40 cc/hr ? Trend lactic acid #Acute kidney injury, likely prerenal in setting of FTT and/or blood loss, improving Baseline creatinine seems to be around 1.0 as values from 10/2024 were in ICU. Now presents with WILLIE as creatinine 2.2, likely secondary to infection/pneumonia vs FTT vs blood loss. ? Trend CMP daily ? Renally dose medications ? Avoid nephrotoxic drugs ? IVF as above Hospital management: Disposition: transfusing 2 units pRBC, pending post-transfusion H&H Fluids: LR at 40 cc/hr given weight Diet: dysphagia 2 diet and PEG tube feedings Lines: PIV, PEG tube DVT prophylaxis: SCDs GI prophylaxis: PPI twice daily CODE STATUS: DNR/DNI ----- Plan discussed with attending physician Dr. Ashley and senior resident physician Dr. Domenico Leal MD PGY-1 Internal Medicine
[2025-02-16 15:00] LABS: Lactate (Lactic Acid) 2.6 mMol/L (0.4-2.0)
[2025-02-16 15:04] LABS: Hematocrit 28.3 % (36.0-46.0); Hemoglobin 9.5 g/dL (12.0-16.0)
--- NOTE | 2025-02-16 16:11 | PC.SS ---
Rounding note: planned to repeat H&H. D/c plan is home w/home health services.
[2025-02-16 17:55] LABS: Reflex Lactate? Y
--- NOTE | 2025-02-16 17:55 | PC.NURSE ---
Per , med rec done, pt own med Sunitinib 25 mg cap sent down to pharmacy to be labeled.
--- NOTE | 2025-02-16 19:36 | PD.IMPROG ---
Documentation for date of: 02/16/25 Subjective Subjective Interval history: Issue is leakage around the gastrostomy tube as the stoma has become the size of the tube That issue currently fixed Exam Vital Signs Temp Pulse Resp BP Pulse Ox O2 Del Method O2 Flow Rate 97.3 F 84 18 125/69 100 Nasal Cannula 1 02/16/25 16:00 02/16/25 16:00 02/16/25 16:00 02/16/25 16:00 02/16/25 16:00 02/16/25 16:00 02/16/25 16:00 Objective Labs 02/16/25 14:48 02/16/25 05:12 Labs: Laboratory Results - last 24 hr 02/15/25 02/15/25 02/16/25 01:50 22:00 02:19 WBC RBC Hgb Hct MCV MCH MCHC RDW Std Deviation Plt Count Neut % (Auto) Lymph % (Auto) [place] % (Auto) Eos % (Auto) Baso % (Auto) Neut # (Auto) Lymph # (Auto) [place] # (Auto) Eos # (Auto) Baso # (Auto) Immature Gran # (Auto) Absolute Nucleated RBC Immature Gran % Nucleated RBC % Sodium Potassium Chloride Carbon Dioxide Anion Gap BUN Creatinine Estim Creat Clear Calc eGFR BUN/Creatinine Ratio Glucose Calculated Osmolality Lactic Acid 2.3 H 3.1 H Calcium Corrected Calcium Total Bilirubin AST ALT Alkaline Phosphatase Total Protein Albumin Globulin Albumin/Globulin Ratio Misc Test Result Blood Type A Positive Antibody Screen NEGATIVE Crossmatch See Detail Blood Bank Wristband ID Yes 02/16/25 02/16/25 02/16/25 05:12 07:00 08:30 WBC 3.8 RBC 1.98 L* Hgb 6.9 L* Hct 20.8 L* MCV 105 H MCH 34.8 MCHC 33.2 RDW Std Deviation 93.3 H Plt Count 39 L Neut % (Auto) 64 Lymph % (Auto) 31 [place] % (Auto) 4 Eos % (Auto) 0 Baso % (Auto) 0 Neut # (Auto) 2.4 Lymph # (Auto) 1.2 [place] # (Auto) 0.1 Eos # (Auto) 0.0 Baso # (Auto) 0.0 Immature Gran # (Auto) 0.04 H Absolute Nucleated RBC 0.21 H Immature Gran % 1 H Nucleated RBC % 6 H Sodium 142 Potassium 5.1 Chloride 104 Carbon Dioxide 29.8 Anion Gap 8 BUN 47 H Creatinine 1.6 H Estim Creat Clear Calc 13.9 L eGFR 31 L BUN/Creatinine Ratio 29 H Glucose 162 H D Calculated Osmolality 299 H Lactic Acid 2.3 H Calcium 7.6 L Corrected Calcium 9.3 Total Bilirubin 0.7 AST 36 H ALT < 7 L Alkaline Phosphatase 69 Total Protein 5.1 L Albumin 1.9 L Globulin 3.2 Albumin/Globulin Ratio 0.6 L Misc Test Result Platelets confirmed Blood Type Antibody Screen Crossintch Blood Bank Wristband ID 02/16/25 02/16/25 14:48 18:43 WBC RBC Hgb 9.5 L D Hct 28.3 L MCV MCH MCHC RDW Std Deviation Plt Count Neut % (Auto) Lymph % (Auto) [place] % (Auto) Eos % (Auto) Baso % (Auto) Neut # (Auto) Lymph # (Auto) [place] # (Auto) Eos # (Auto) Baso # (Auto) Immature Gran # (Auto) Absolute Nucleated RBC Immature Gran % Nucleated RBC % Sodium Potassium Chloride Carbon Dioxide Anion Gap BUN Creatinine Estim Creat Clear Calc eGFR BUN/Creatinine Ratio Glucose Calculated Osmolality Lactic Acid 2.6 H 3.0 H Calcium Corrected Calcium Total Bilirubin AST ALT Alkaline Phosphatase Total Protein Albumin Globulin Albumin/Globulin Ratio Misc Test Result Blood Type Antibody Screen Cross[place]ch Blood Bank Wristband ID Impressions Impression: Status post placement of a new gastrostomy tube Leakage around the gastrostomy tube is because of the large stoma that happens because of the movement of the tube in and out Dressing around the stoma Continue enteral feeding Assessment & Plan A&P Narrative # Dislodged PEG tube Plan Consent obtained from the daughters for fiberoptic upper endoscopy removal of the gastric PEG tube and placement of a new under intravenous moderate sedation Will proceed with the procedure Other medical problems include # Gastric carcinoma status post partial gastric resection followed at [facility] # Paroxysmal atrial fibrillation not on any anticoagulation Thank you very much for the opportunity to participate in the care of this patient Time Spent With Patient Time: Total time spent is greater than 50% in coordination of care (as documented) at patient's floor/unit and/or counseling patient:
[2025-02-16 20:38] LABS: Lactate (Lactic Acid) 2.7 mMol/L (0.4-2.0)
[2025-02-16 23:36] LABS: Reflex Lactate? Y
[2025-02-17] VITALS: PULSE 93
[2025-02-17 00:55] LABS: Lactic Acid, 3 HR 2.3 mMol/L (0.4-2.0)
[2025-02-17 04:00] VITALS: BP 110/69; PULSE 94; PULSE 95; RESP 12; TEMP 37.2; O2SAT 95
--- NOTE | 2025-02-17 04:00 | PC.NURSE ---
PEG DRESSING WITH BROWNISH DISCHARGE. CLEANSED WITH WOUND CLEANSER AND SPLIT GAUZE PLACED. REDNESS NOTED SURROUNDING PEG SITE INSERTION SITE
[2025-02-17 05:52] VITALS: BMI 19.1
[2025-02-17 06:10] LABS: Basophils % (Auto) 0 % (0-2.5); Eosinophils % (Auto) 0 % (0-10); Hematocrit 27.9 % (36.0-46.0); Hemoglobin 9.2 g/dL (12.0-16.0); Immature Granulocytes % (Auto) 1 % (0-0); Immature Granulocytes Auto 0.05 Thou/mm3 (0.00-0.00); Lymphocytes # (Auto) 1.1 Thou/mm3 (1.0-4.8); Lymphocytes % (Auto) 28 % (10-50); Mean Corpuscular Hemoglobin 31.4 pg (25.0-35.0); Mean Corpuscular Volume 95 fL (80-100); Monocytes # (Auto) 0.1 Thou/mm3 (0.0-0.8); Monocytes % (Auto) 4 % (0-12); Neutrophils # (Auto) 2.6 Thou/mm3 (1.8-7.7); Neutrophils % (Auto) 67 % (37-80); Nucleated Red Blood Cell # 0.43 Thou/mm3 (0.00-0.00); Nucleated Red Blood Cell % 11 /100 WBC (0); RDW Standard Deviation 91.9 fL (36.4-46.3); Red Blood Count 2.93 Miln/mm3 (4.00-5.20); White Blood Count 3.8 Thou/mm3 (3.6-11.0)
[2025-02-17 06:14] LABS: Platelet Count 41 Thou/mm3 (140-440)
[2025-02-17 06:44] VITALS: PULSE 97; RESP 18; O2SAT 94
[2025-02-17 06:54] LABS: Alanine Aminotransferase < 7 U/L (10-49); Albumin, Serum 1.9 gm/dL (3.4-4.8); Albumin/Globulin Ratio 0.6 (1.2-2.2); Alkaline Phosphatase 74 U/L (46-116); Anion Gap 9 (7-16); Aspartate Amino Transferase 34 U/L (0-34); BUN/Creatinine Ratio 26 Ratio (12-20); Bilirubin,Total 0.7 mg/dL (0.3-1.2); Blood Urea Nitrogen 34 mg/dL (9-23); Calcium 7.4 mg/dL (8.3-10.6); Calcium (Corrected) 9.1 mg/dL (8.5-10.1); Carbon Dioxide 28.6 mMol/L (20.0-31.0); Chloride 108 mMol/L (98-107); Creatinine (Component) 1.3 mg/dL (0.6-1.3); Estimated Creatinine Clearance 20.3 mL/min (>60); Globulin 3.2 gm/dL (2.3-3.5); Glucose 133 mg/dL (74-106); Osmolality,Calculated 300 (275-295); Potassium 4.6 mMol/L (3.4-5.1); Sodium 146 mMol/L (136-145); Total Protein 5.1 gm/dL (5.7-8.2); eGFR 40 See Note
[2025-02-17 08:00] VITALS: BP 130/85; PULSE 86; PULSE 93; RESP 22; TEMP 37.2; O2SAT 93
[2025-02-17] MEDS: PANTOPRAZOLE INJ 40 MG VIAL IVP (08:21)
[2025-02-17] MEDS: RINGERS LACTATED 1000 ML 1,000 ML 40 ML IV (08:21)
[2025-02-17 09:00] VITALS: RESP 12; RESP 94
[2025-02-17 09:11] LABS: Slide Review Platelets confirmed
--- NOTE | 2025-02-17 09:50 | PC.SS ---
Update: Plan is to d/c the patient home with home health.
--- NOTE | 2025-02-17 10:34 | ESDS_ITS ---
<Statement entered by Chinedu Ashley MD - 02/22/25 14:40> I reviewed above note and agree with findings and plans. I have also personally examined the patient with medicine team and went over assessment and plan with medical team including regulatory internship and resident physician. Planned Discharge Date 02/17/25 DS: Providers Provider Date of admission: 02/15/25 00:39 Primary care physician: Physician No Primary/Family Admitting Provider: Gary Camarillo MD Attending Provider on Admission: Chinedu Ashley MD Consults: 02/14/25 21:13 Consult to Gastroenterology Stat Comment: G tube malfunction Consulting Provider: Kimo Ledesma 02/15/25 00:41 Referral Physical Therapy Routine Comment: Physician Instructions: 02/15/25 14:12 Referral Registered Dietitian Routine Comment: Instructions: PEG tube replaced, can start tube feedings Attending Provider on DC: Rodolfo Leal MD Discharging Provider: Rodolfo Leal MD DS: Diagnosis Problem List Completed Was Problem List Reviewed/Reconciled?: Yes Hospital Course Hospital Course Hospital course: Stefani Harris is an 88-year-old Tagalog-speaking female with a past medical history of gastric cancer s/p partial gastrectomy on sunitinib malate (following [facility] oncology) s/p PEG tube, upper GI bleed in 10/2024 from tumor, chronic macrocytic anemia, FTT, and paroxysmal A-fib (no AC secondary to UGIB) who is admitted for dislodgment of G-tube with foul-smelling odor. On admission patient was afebrile and saturating well on room air. Labs showed no leukocytosis but decreased hemoglobin from 11 to 7.5 approximately 1 month ago in addition to WILLIE. Eventually, hemoglobin dropped from 7.9 to 6.9 and after transfusion of 1 unit PRBC, hemoglobin improved to 9.5. On 02/15, patient's G- tube was replaced and immediately available for use. There was mild leakage but after speaking to GI, this is to be expected given the stoma is likely enlarged after recurrent manipulation and patient can still be discharged. No acute events occurred throughout hospitalization, vital signs remained stable, hemoglobin stabilized, and WILLIE resolved. Thus, patient stable to be discharged home with home health. Diagnoses during admission: #PEG tube dislodgment #? PEG tube site infection #History of GI bleed #Acute blood loss anemia #History of gastric cancer s/p partial gastrectomy on chemotherapy #Community acquired pneumonia, bacterial vs viral #Pleural effusions #Acute kidney injury, likely prerenal in setting of FTT and/or blood loss, imp roving Discharge instructions: ? Continue taking all other home medications as prescribed ? Follow-up with PCP within 1-2 weeks of discharge ? Return to ED if symptoms worsen or recur, if significant rectal bleeding or throwing up of blood occurs ----- Plan discussed with attending physician Dr. Gabi Leal MD PGY-1 Internal Medicine Time Spent with Patient Time attestation: Total time spent providing and/or coordinating discharge services: Time spent: Greater than 30 minutes Home Health Home Health Referral Orders: 02/17/25 09:43 Home Health Referral Routine Reason For Exam: PT Home-Bound The patient must either because of illness or injury, need the aid of supportive devices such as crutches, canes, wheelchairs, and walkers; the use of special transportation; or the assistance of another person in order to leave their place of residence; OR have a condition such that leaving his or her home is medically contraindicated. In addition, the patient also meets the following criteria: patient is normally unable to leave the home and leaving home requires considerable taxing effort. Addendum to Home Health Certification Practitioner's Certification: I certify that the patient has been under my care in the hospital and the care of attending physician (see below). We had a [id number] encounter on (see date below). My clinical findings indicate that the patient is home bound per the above criteria and the Home Health Services noted in these orders are medically necessary. The primary reason for the [id number] encounter is related to the fact that the patient requires home health services. Date Certifying [id number]-Utsh Physician Encounter: 02/15/25 Physician's Name who will Assume Oversight for HH Services: Physician No Primary/Family RO[employer] - Community Resources: No PT to Evaluate: Yes PT to evaluate and provide a treatmnet plan to increase patient's mobility and strength. Wound Care: No IV Therapy: No RN Safety Evaluation: Yes RN to evaluate and create a plan of care that will produce positive outcomes. Palliative Treatment: No Palliative treatment and evaluate the need for hospice. Home Health Aide - Personal Care: No Home Health Aide to assist with any ADL's. Exam Vital Signs Temp Pulse Resp BP Pulse Ox O2 Del Method O2 Flow Rate 99.0 F 93 22 H 130/85 H 93 L Nasal Cannula 1 02/17/25 08:00 02/17/25 08:00 02/17/25 08:00 02/17/25 08:00 02/17/25 08:00 02/17/25 08:00 02/17/25 08:00 Narrative Exam General: underweight, AOx3, no acute distress, able to speak full sentences HEENT: NC/AT, mucous membranes moist, bilateral sclera anicteric Cardiovascular: regular rate, S1/S2 present, no murmurs appreciated Pulmonary: clear to auscultation bilaterally, no rales/rhonchi/wheezes Abdominal: PEG tube in place without surrounding erythema or discharge, soft, non-tender, non-distended, no rebound/guarding Musculoskeletal: normal ROM, no peripheral edema Skin: warm and dry, intact, no rashes Neuro: CN II-XII intact, no focal deficits Discharge Plan Plan Patient Disposition: Home w/HOME HEALTH Care Plan Goals: ? Continue taking all other home medications as prescribed ? Follow-up with PCP within 1-2 weeks of discharge ? Return to ED if symptoms worsen or recur, if significant rectal bleeding or throwing up of blood occurs Prescriptions/Referrals Prescriptions/Med Rec: Continued sunitinib malate 25 mg capsule 25 mg PO DAILY Referrals: No Primary/Family,Physician [Primary Care Provider] - Patient/Caregiver Discharge Instructions Print Language: Singaporean Stand Alone Forms: Thalia Award Info., Patient Portal Info Letter Discharge Order Discharge Orders: Discharge (Routine); Ordered 02/17/25 Ordered By: Rodolfo Marroquin [facility] Quality Discharge Quality Measures none (Contraindicated given GI bleed)
--- NOTE | 2025-02-17 10:48 | PC.CC ---
HH ref initiated, need to send referral. prefers [facility].
[2025-02-17 12:00] VITALS: BP 134/75; PULSE 91; RESP 23; TEMP 36.2; O2SAT 92
--- NOTE | 2025-02-17 12:07 | PC.PT ---
Patient is safe to ambulate to the bathroom and in the halls with 1 staff assist and a FWW. RN made aware.
--- NOTE | 2025-02-17 13:04 | ESPR_ITS ---
Documentation for date of: 02/17/25 Subjective Subjective Interval history: Patient evaluated okay to discharge home to be followed by the PCP The PEG tube leakage around the PEG site is normal as the PEG has been there for a long time Exam Vital Signs Temp Pulse Resp BP Pulse Ox O2 Del Method O2 Flow Rate 97.1 F 91 23 H 134/75 H 92 L Nasal Cannula 1 02/17/25 12:00 02/17/25 12:00 02/17/25 12:00 02/17/25 12:00 02/17/25 12:00 02/17/25 12:00 02/17/25 12:00 Objective Labs 02/17/25 05:15 02/17/25 05:15 Labs: Laboratory Results - last 24 hr 02/16/25 02/16/25 02/16/25 14:48 18:43 20:25 WBC RBC Hgb 9.5 L D Hct 28.3 L MCV MCH MCHC RDW Std Deviation Plt Count Neut % (Auto) Lymph % (Auto) [place] % (Auto) Eos % (Auto) Baso % (Auto) Neut # (Auto) Lymph # (Auto) [place] # (Auto) Eos # (Auto) Baso # (Auto) Immature Gran # (Auto) Absolute Nucleated RBC Immature Gran % Nucleated RBC % Sodium Potassium Chloride Carbon Dioxide Anion Gap BUN Creatinine Estim Creat Clear Calc eGFR BUN/Creatinine Ratio Glucose Calculated Osmolality Lactic Acid 2.6 H 3.0 H 2.7 H Calcium Corrected Calcium Total Bilirubin AST ALT Alkaline Phosphatase Total Protein Albumin Globulin Albumin/Globulin Ratio Misc Test Result 02/16/25 02/17/25 23:54 05:15 WBC 3.8 RBC 2.93 L Hgb 9.2 L Hct 27.9 L MCV 95 MCH 31.4 MCHC 33.0 RDW Std Deviation 91.9 H Plt Count 41 L Neut % (Auto) 67 Lymph % (Auto) 28 [place] % (Auto) 4 Eos % (Auto) 0 Baso % (Auto) 0 Neut # (Auto) 2.6 Lymph # (Auto) 1.1 [place] # (Auto) 0.1 Eos # (Auto) 0.0 Baso # (Auto) 0.0 Immature Gran # (Auto) 0.05 H Absolute Nucleated RBC 0.43 H Immature Gran % 1 H Nucleated RBC % 11 H Sodium 146 H Potassium 4.6 D Chloride 108 H Carbon Dioxide 28.6 Anion Gap 9 BUN 34 H Creatinine 1.3 Estim Creat Clear Calc 20.3 L eGFR 40 L BUN/Creatinine Ratio 26 H Glucose 133 H Calculated Osmolality 300 H Lactic Acid 2.3 H Calcium 7.4 L Corrected Calcium 9.1 Total Bilirubin 0.7 AST 34 ALT < 7 L Alkaline Phosphatase 74 Total Protein 5.1 L Albumin 1.9 L Globulin 3.2 Albumin/Globulin Ratio 0.6 L Misc Test Result Platelets confirmed Impressions Impression: Status post placement of a new PEG doing well Okay to discharge to be followed by the PCP Assessment & Plan A&P Narrative # Dislodged PEG tube Plan Consent obtained from the daughters for fiberoptic upper endoscopy removal of the gastric PEG tube and placement of a new under intravenous moderate sedation Will proceed with the procedure Other medical problems include # 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
--- NOTE | 2025-02-17 13:25 | PC.NURSE ---
Patient Alert, ambulated on Room air today more that 200ft. Patient g tube dressing changed, Discharge instructions given, abd binder placed, and g-tube dressing instructions and demonstration completed. PIV removed.
--- NOTE | 2025-02-17 15:01 | PC.SS ---
Rounding Note: Patient to d/c home today.
--- NOTE | 2025-02-18 12:10 | PC.CC ---
HH referral sent to [facility], pts preferred agency. waiting for response.
--- NOTE | 2025-02-19 09:39 | PC.CM ---
Patient accepted by [facility]. Start of care date set for 02/18.
== END 2025-02-17 12:05 | disposition home health service (06) | DRG 393 ==
LOC: SERX 02-15 00:15 → SERHOLD 02-15 01:27 → S2NX 02-15 09:40 → SERHOLD 02-16 06:14
PROVIDERS: Specialist; Student in an Organized Health Care Education/Training Program; Admitting Provider Internal Medicine; Emergency Provider Emergency Medicine; Visit Provider Internal Medicine
PROC: 0DH63UZ Insertion of Feeding Device into Stomach, Percutaneous Approach (ICD-10-PCS; CPT 43246; principal; 2025-02-15 13:15)
DX: K94.23 Gastrostomy malfunction (principal); J15.9 Unspecified bacterial pneumonia; J18.9 Pneumonia, unspecified organism; D62 Acute posthemorrhagic anemia; K92.2 Gastrointestinal hemorrhage, unspecified; N17.9 Acute kidney failure, unspecified; C16.9 Malignant neoplasm of stomach, unspecified; E87.20 Acidosis, unspecified; I50.9 Heart failure, unspecified; I48.0 Paroxysmal atrial fibrillation; N27.1 Small kidney, bilateral; N18.9 Chronic kidney disease, unspecified; R13.10 Dysphagia, unspecified; K94.22 Gastrostomy infection; D53.9 Nutritional anemia, unspecified; Z90.3 Acquired absence of stomach [part of]; Z66 Do not resuscitate; Z79.01 Long term (current) use of anticoagulants
CPT/HCPCS: 36415; 71045; 76700; 80048; 80053; 80061; 80076; 81001; 82270; 82271; 83605; 83735; 84100; 84145; 84439; 84443; 85014; 85018; 85025; 85610; 85652; 86140; 86850; 86900; 86901; 86902; 86921; 86922; 87040; 87086; 87400; 87811; 96361; 96365; 96375; 97162; 99285; A4649; J1200; J2250; J2470; J2543; J3010; J3490; J7030; J7120; P9016; A9270

== ENCOUNTER 2025-02-21 12:31 | Inpatient (IN) | payer MEDICARE, MEDICAID, SELFPAY ==
[2025-02-21] VITALS (14 sets, daily range): BP systolic 98–135; BP diastolic 59–74; PULSE 79–114; RESP 15–20; TEMP 36.2–36.7; O2SAT 93–100; BMI 17.9
--- NOTE | 2025-02-21 13:04 | PC.NURSE ---
Family brought patient to ED due to increased weakness that started on . Patient has hx on stomach CA and is taking oral chemo. Patient denies pain at this time. Daughter at bedside. POC updated.
--- NOTE | 2025-02-21 13:37 | PD.EDWEAK ---
ED Weakness RME/HPI General Chief complaint: Weakness Stated complaint: WEAKNESS WITH BLOODY STOOL Time Seen by Provider: 02/21/25 13:43 Arrival date/time: 02/21/25 12:31 RME / HPI RME / HPI Narrative: 89 year old female with history of paroxysmal atrial fibrillation, gastric carcinoma s/p partial gastrectomy, followed by [facility], s/p PEG tube placed 08/2024, chronic macrocytic anemia, GI bleed presents to the ED with weakness and black stools. According to her daughter, the patient was recently hospitalized from 02/15?02/18/2025 for anemia and PEG tube dislodgment. During that admission, she received one unit of PRBC and had her PEG tube replaced. Since discharge on Saturday, the family has noted dark black-appearing stools and worsening generalized weakness. At baseline, the patient is ambulatory without assistance. However, over the past few days, she has required help with ambulation and getting in and out of bed. The family reports no episodes of black stools during admission. No additional complaints or symptoms reported. Related Data Home Medications ?Medication ?Instructions ?Recorded ?Confirmed sunitinib malate 25 mg capsule 25 mg PO DAILY 08/11/24 02/16/25 Allergies Allergy/AdvReac Type Severity Reaction Status Date / Time No Known Allergies Allergy Verified 02/21/25 12:35 Review of Systems Review of Systems Systems Reviewed: All systems reviewed, normal except as documented Past Medical History Past Medical History NEUROLOGIC: Positive Dementia CARDIAC: Positive Cardiac Arrhythmia, Atrial Fibrillation, Congestive Heart Failure and Edema GASTROINTESTINAL: Positive Gastrointestinal Disorders, Gastrointestinal Bleed and Hemorrhoids HEMATOLOGIC: Positive Blood Disorders, Anemia and Clotting Problems PSYCHO/SOCIAL: Positive Eating Disorder OTHER HISTORY: Positive Hospitalization, Chemotherapy and Cancer Family History FAMILY HISTORY: Negative Family Psychiatric Problems, Family Respiratory Disorders, Family Cardiac Disorders, Family Gastrointestinal Problems, Family Cancer, Family Surgery or Family Anesthesia Reaction Surgical History SURGICAL: Positive Abdominal Surgery (G-Tube) and Gastrostomy Social History SMOKING STATUS: Never smoker ED Exam Narrative Physical exam: GENERAL APPEARANCE: AxOx4, no obvious distress, nontoxic appearing, pallor, questionable jaundice? HEENT: NC, AT. MMM. EOMI, clear conjunctiva, oropharynx clear. NECK: Supple without lymphadenopathy. No stiffness or restricted ROM. HEART: Normal rate and regular rhythm, normal S1/S1, no m/r/g LUNGS: CTAB, moving air well. No crackles or wheezes are heard. ABDOMEN: Soft, nontender, nondistended with good bowel sounds heard. BACK: No midline C/T/L spine pain or deformity, No CVAT, no obvious deformity. EXTREMITIES: Without cyanosis, clubbing or edema. MUSCULOSKELETAL: FROM of all major joints, no chest tenderness NEUROLOGICAL: Grossly nonfocal. Alert and oriented, moving all 4 extremities. CN not formally tested but appear grossly intact. Skin: Warm and dry without any rash. Pallor, questionable jaundice? Course Quality Measures none Orders Category Date Time Status EKG (ED ONLY) *Do not use* NOW Care 02/21/25 13:39 Completed Transfuse,blood/blood products NOW Care 02/21/25 15:32 Active Consult to Gastroenterology Stat Cons 02/21/25 16:44 Ordered EKG (ED Only) Stat Exams 02/21/25 13:39 Draft CBC Stat Lab 02/21/25 14:59 Completed CMP [Comprehensive Metabolic Panel] Stat Lab 02/21/25 14:59 Completed Partial Thromboplastin Time Stat Lab 02/21/25 14:59 Completed Prothrombin Time with INR Stat Lab 02/21/25 14:59 Completed Type and Screen Stat Lab 02/21/25 15:30 Results prbc [Red Blood Cells] Stat Lab 02/21/25 15:30 Results Pantoprazole Inj [Protonix Inj] Med 02/21/25 16:41 Discontinued 80 mg IVP X1 ONE Pantoprazole/Ns 80Mg IV Premix [Protonix/NS 80mg IV Med 02/21/25 16:44 Active Premix] 80 mg in 100 ml IV X1 Vital Signs Vital signs: Vital Signs Temperature 98.0 F 02/21/25 12:48 Pulse Rate 97 02/21/25 12:48 Respiratory Rate 18 02/21/25 12:48 Blood Pressure 108/59 L 02/21/25 12:48 Pulse Oximetry (%) 93 L 02/21/25 12:48 Oxygen Delivery Method Room Air 02/21/25 12:48 Pulse ox is 93% on room air which is low. Weakness MDM Narrative MDM Narrative:: Florencia Brooke am scribing for and in the presence of Dr. Brasher. 89 year old female with history including paroxysmal atrial fibrillation, gastric carcinoma status post partial gastrectomy (followed by [facility]), PEG tube placement, chronic macrocytic anemia, and prior GI bleed presents with generalized weakness and melena. Per daughter, the patient was recently hospitalized from 02/15 through 02/18/2025 for anemia and PEG tube dislodgment. During that admission, she received one unit of PRBC and underwent EGD by GI Dr. Ledesma on 02/15/2025, which did not reveal a clear source of active bleeding; PEG tube was replaced during that time. Since discharge, the family has noted recurrent dark, tarry stools and global weakness. No black stools were noted during the previous admission. On presentation today, the patient?s hemoglobin is significantly decreased at 4.7 that was 9.2 on discharge, with hematocrit 15.2. Bilirubin remains within normal limits. Patient data External records reviewed:: [facility] previous records (I reviewed admission from 02/15/2025 through 02/18/2025, I reviewed EGD report on 02/15/2025 ) Clinical information provided by:: patient and family (Daughters ) Social determinants that could affect healthcare access:: none Patient has the following chronic illnesses:: paroxysmal atrial fibrillation, gastric carcinoma s/p partial gastrectomy, followed by [facility], s/p PEG tube placed 08/2024, chronic macrocytic anemia, GI bleed How is presenting disease/condition affected by chronic disease/condition?: exacerbated by Evaluation data The following diagnostics were reviewed and interpreted by me:: lab results and EKG tracing(s) (EKG 02/21/2025 @ 14:25. NSR, HR 89, normal axis, normal intervals, no acute ischemic changes, no STEMI. ) Lab and/or radiology exams considered but not ordered:: None Interpretation Summary: As noted above Medications / Prescriptions Medications or Prescriptions considered but not ordered:: None Medication administrations:: Medication Administration History Pantoprazole Sodium (Protonix/Ns 80mg Iv Premix) 80 mg in 100 mls @ 10 mls/hr IV X1 ONE Stop: 02/22/25 02:43 Last Admin: 02/21/25 17:03 Dose: 10 mls/hr Documented By: ER Discontinued Medications Pantoprazole Sodium (Pantoprazole Inj 40 Mg Vial) 80 mg IVP X1 ONE Stop: 02/21/25 16:42 Last Admin: 02/21/25 16:57 Dose: 80 mg Documented By: ER See above Consultations Consultation(s) initiated? (list below): Yes Consultation #1 (Physician, Specialty, Details): I spoke with GI Dr. Ledesma. Discussed patient?s HPI, PMHx, lab and radiology results. Treatment plan was discussed. Agrees to consult. Time: 16:34 Consultation #2 (Physician, Specialty, Details): I spoke with resident working with Dr. Ashley. Discussed patients PMHx, HPI, ED course, exam findings, labs, and radiology results. The hospitalist agree to accept the patient for admission. Time: 16:40 Diagnosis Weakness Differential Diagnosis: anemia, sepsis and dehydration Most likely diagnosis given after review of the tests above:: Severe anemia Upper GI bleed Admission Indicated Admission indicated?: indicated Admission Request Was there a request for admission?: Yes Admission Attestation Admission request attestation: Discussed case with [] from Hospitalist service regarding admission. Discussed patients ED course, exam findings, labs, and radiology results. The Hospitalist [agrees,declines] to accept the patient for admission. Disposition Plan Disposition Plan: Admit Discharge Plan Plan Patient Disposition: Admit Acute Care w/in Hospital Prescriptions/Referrals Prescriptions/Med Rec: No Action sunitinib malate 25 mg capsule 25 mg PO DAILY Referrals: Gopal Dawson MD [Primary Care Provider] - In 1 week Problem List Clinical Impression: Severe anemia, Upper GI bleed Patient/Caregiver Discharge Instructions Print Language: Dutch Stand Alone Forms: Thalia Award Info., Patient Portal Info Letter
--- NOTE | 2025-02-21 13:39 | EKG_ITS ---
[facility] Test Date: 2025-02-21 Pat Name: JACOBO MCNEAL Department: Room: - Gender: Female Insurance Verification Representative: : 1935 Requested By: Brien Brasher Order Number: [id number] Reading MD: Brien Brasher Measurements Intervals [place] Rate: 89 P: 58 CT: 185 QRS: 47 QRSD: 77 T: 84 QT: 357 QTc: 436 Interpretive Statements SINUS RHYTHM Compared to ECG 11/13/2024 10:16:27 Sinus tachycardia no longer present Myocardial infarct finding no longer present /store/[id number].pdf
[2025-02-21 15:09] LABS: Basophils % (Auto) 0 % (0-2.5); Eosinophils % (Auto) 0 % (0-10); Immature Granulocytes % (Auto) 1 % (0-0); Immature Granulocytes Auto 0.03 Thou/mm3 (0.00-0.00); Lymphocytes # (Auto) 0.5 Thou/mm3 (1.0-4.8); Lymphocytes % (Auto) 15 % (10-50); Mean Corpuscular HGB Conc 30.9 g/dl (31.0-37.0); Mean Corpuscular Hemoglobin 33.1 pg (25.0-35.0); Mean Corpuscular Volume 107 fL (80-100); Monocytes # (Auto) 0.1 Thou/mm3 (0.0-0.8); Monocytes % (Auto) 2 % (0-12); Neutrophils # (Auto) 2.4 Thou/mm3 (1.8-7.7); Neutrophils % (Auto) 82 % (37-80); Nucleated Red Blood Cell # 0.83 Thou/mm3 (0.00-0.00); Nucleated Red Blood Cell % 28 /100 WBC (0); Platelet Count 81 Thou/mm3 (140-440); RDW Standard Deviation 108.3 fL (36.4-46.3); Red Blood Count 1.42 Miln/mm3 (4.00-5.20)
[2025-02-21 15:24] LABS: INR 1.3 (0.9-1.3); Partial Thromboplastin Time 30.7 Seconds (22.0-36.0); Prothrombin Time 14.2 Seconds (9.0-12.2)
[2025-02-21 15:25] LABS: Alanine Aminotransferase 14 U/L (10-49); Albumin, Serum 2.1 gm/dL (3.4-4.8); Albumin/Globulin Ratio 0.6 (1.2-2.2); Alkaline Phosphatase 83 U/L (46-116); Anion Gap 9 (7-16); Aspartate Amino Transferase 51 U/L (0-34); BUN/Creatinine Ratio 25 Ratio (12-20); Bilirubin,Total 0.8 mg/dL (0.3-1.2); Blood Urea Nitrogen 43 mg/dL (9-23); Calcium 7.7 mg/dL (8.3-10.6); Calcium (Corrected) 9.2 mg/dL (8.5-10.1); Carbon Dioxide 27.8 mMol/L (20.0-31.0); Chloride 111 mMol/L (98-107); Creatinine (Component) 1.7 mg/dL (0.6-1.3); Estimated Creatinine Clearance 15.6 mL/min (>60); Globulin 3.7 gm/dL (2.3-3.5); Glucose 136 mg/dL (74-106); Osmolality,Calculated 307 (275-295); Potassium 4.7 mMol/L (3.4-5.1); Sodium 148 mMol/L (136-145); Total Protein 5.8 gm/dL (5.7-8.2); eGFR 29 See Note
[2025-02-21 15:31] LABS: White Blood Count 2.9 Thou/mm3 (3.6-11.0)
[2025-02-21 15:32] LABS: Hematocrit 15.2 % (36.0-46.0); Hemoglobin 4.7 g/dL (12.0-16.0)
[2025-02-21] MEDS: PANTOPRAZOLE INJ 40 MG VIAL 80 MG IVP (16:57)
[2025-02-21] MEDS: PANTOPRAZOLE/NS 80MG IV PREMIX 80 MG/100 ML BAG 10 MG IV (17:03)
--- NOTE | 2025-02-21 17:11 | ESHP_ITS ---
<Statement entered by Chinedu Ashley MD - 02/26/25 14:48> I reviewed above note and agree with findings and plans. I have also personally examined the patient with medicine team and went over assessment and plan with medical team including research intern and resident physician. 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 Recently discharged on 02/17 for PEG tube dislodgment that was then replaced by Dr. Ledesma without complications. During that admission hemoglobin dropped from 7.9 to 6.9 and was transfused 1 unit PRBC then increased to 9.5 and was discharged with hemoglobin 9.2. However, per daughter at bedside, since discharge patient has had large bloody bowel movements every day and has noticed patient becoming weaker and pale and brought her to the ED. Upon arrival, labs showed hemoglobin of 4.7 and hematocrit of 15. Hemodynamically stable at 108/59, heart rate 97, saturating 93% on room air. Dr. Ledesma was consulted from ED and states that he plans to do an EGD for further evaluation and recommended starting Protonix drip. 3 units PRBC ordered for transfusion when ready, and if requiring fourth unit of blood will also give platelets and FFP. Other labs significant for sodium 148, BUN 43, creatinine 1.7 (baseline 1.2), albumin 2.1. Admitted for further management of acute blood loss anemia in setting of recurrent upper GI bleed, GI following. 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, chronic macrocytic anemia, FTT, and paroxysmal A-fib (no AC secondary to UGIB) Medications: sunitinib malate SHx: denies cigarette use, alcohol consumption, or illicit drug use PSHx: partial gastrectomy Review of Systems Review of Systems Systems Reviewed: All systems reviewed, normal except as documented Exam Vital Signs Temp Pulse Resp BP Pulse Ox O2 Del Method O2 Flow Rate 97.6 F 82 18 118/65 100 Nasal Cannula 2 02/21/25 17:00 02/21/25 17:00 02/21/25 17:00 02/21/25 17:00 02/21/25 17:00 02/21/25 17:00 02/21/25 17:00 Narrative Exam General: alert, no acute distress, tired, pale HEENT: conjunctival pallor, NC/AT, mucous membranes moist Cardiovascular: regular rate and rhythm, S1/S2 present, no murmurs appreciated Pulmonary: clear to auscultation bilaterally, no rales/rhonchi/wheezes Abdominal: PEG tube C/D/I without bruising or signs of bleeding, soft, non- tender, non-distended, no rebound/guarding, normal bowel sounds present Musculoskeletal: normal ROM, no peripheral edema Skin: petechiae, warm and dry, intact, no rashes Neuro: CN II-XII intact, no focal deficits Results: Labs 02/22/25 05:24 02/22/25 05:24 Labs: Short CBC 02/21/25 Range/Units 14:59 WBC 2.9 L (3.6-11.0) Thou/mm3 Hgb 4.7 L* D (12.0-16.0) g/dL Hct 15.2 L* (36.0-46.0) % Plt Count 81 L D (140-440) Thou/mm3 BMP 02/21/25 14:59 Sodium 148 H Potassium 4.7 Chloride 111 H Carbon Dioxide 27.8 BUN 43 H Creatinine 1.7 H Glucose 136 H Calcium 7.7 L Liver Function 02/21/25 Range/Units 14:59 Total Bilirubin 0.8 (0.3-1.2) mg/dL AST 51 H (0-34) U/L ALT 14 (10-49) U/L Alkaline Phosphatase 83 (46-116) U/L Albumin 2.1 L (3.4-4.8) gm/dL Quality Measures Quality Measures none Advance care planning discussed with:: patient and child Medications Home Medications and Allergies Home Medications ?Medication ?Instructions ?Recorded ?Confirmed ?Type sunitinib malate 25 mg capsule 25 mg PO DAILY 08/11/24 02/16/25 History Allergies Allergy/AdvReac Type Severity Reaction Status Date / Time No Known Allergies Allergy Verified 02/21/25 12:35 Visit Medications Acetaminophen (Acetaminophen 325 Mg Tablet) 650 mg PO Q6H PRN PRN Reason: PAIN OR FEVER > 100.4 Stop: 03/23/25 17:05 Pantoprazole Sodium (Protonix/Ns 80mg Iv Premix) 80 mg in 100 mls @ 10 mls/hr IV X1 ONE Stop: 02/22/25 02:43 Last Admin: 02/21/25 17:03 Dose: 10 mls/hr Lactated Ringer's (Lactated Ringers) 1,000 mls @ 50 mls/hr IV .Q20H LAKESHA Stop: 02/23/25 17:14 Ondansetron HCl (Ondansetron Inj 2 Mg/Ml Inj 2 Ml) 4 mg IVP Q6H PRN; Protocol PRN Reason: NAUSEA OR VOMITING Stop: 03/23/25 17:05 Discontinued Medications Pantoprazole Sodium (Pantoprazole Inj 40 Mg Vial) 80 mg IVP X1 ONE Stop: 02/21/25 16:42 Last Admin: 02/21/25 16:57 Dose: 80 mg Assessment & Plan Plan Stefani Harris is an 88-year-old Tagalog-speaking female with a past medical history of gastric cancer s/p partial gastrectomy on sunitinib malate (following [facility] oncology) s/p PEG tube, upper GI bleed in 10/2024 from tumor, chronic macrocytic anemia, FTT, and paroxysmal A-fib (no AC secondary to UGIB) who is admitted for acute blood loss anemia. #Acute blood loss anemia #Acute on chronic macrocytic anemia #History of GI bleed #History of gastric cancer s/p partial gastrectomy on chemotherapy Patient has history of gastric cancer status post partial gastrectomy and followed by [facility] oncology and status post PEG tube placement. Representing for acute blood loss anemia with initial hemoglobin of 4.7. Daughter at bedside states that patient has had large, melanotic bowel movements daily since being discharged on 02/17. Family states that at [facility] found to have a tumor as source of bleeding but not a surgical candidate for embolization. Otherwise denies hemoptysis, hematemesis, hematuria or drainage from recently exchanged PEG tube site. ? GI consulted, appreciate recommendations ? Pending EGD, n.p.o. ? Protonix drip after 80 mg IV x 1 ? Transfuse 3 units PRBC, follow-up posttransfusion H&H ? If an additional unit PRBCs needed, will need to transfuse platelets and FFP #Acute kidney injury, likely prerenal in setting of FTT and/or blood loss, improving Baseline creatinine seems to be around 1.2 as values from 10/2024 were in ICU. Now presents with WILLIE as creatinine 1.7, likely secondary to blood loss. ? Trend CMP daily ? Renally dose medications ? Avoid nephrotoxic drugs ? LR at 50 cc/hr #Hypertonic hypernatremia Free water deficit of 1.1 L if goal is 140. ? IVF as above ? Continue to monitor #PEG tube feedings #History of PEG tube dislodgment ? Registered dietitian referral for after EGD Hospital management: Disposition: transfusing 3 unit pRBC, EGD with Dr. Ledesma Fluids: LR at 50 cc/hr given weight Diet: NPO for future EGD Lines: PIV, PEG tube DVT prophylaxis: SCDs GI prophylaxis: pantoprazole drip CODE STATUS: DNR/DNI ----- Plan discussed with attending physician Dr. Gabi Leal MD PGY-1 Internal Medicine
--- NOTE | 2025-02-21 19:02 | PC.NURSE ---
Patient arrived from ED at 1823. Pt running 1 unit of PRBC. Protonix drip not running at time of transfer with Protonix bag hanging on IV pole. Pt arrived to the unit with large bright red bloody stool. Pt's VS T:98.2 P: 85 RR:12 BP: 135/74.
[2025-02-21] MEDS: RINGERS LACTATED 1000 ML 1,000 ML 50 ML IV (19:58)
[2025-02-22] VITALS (24 sets, daily range): BP systolic 88–149; BP diastolic 43–85; PULSE 56–114; RESP 12–20; TEMP 36.1–36.7; O2SAT 90–99; BMI 16.8
[2025-02-22 05:51] LABS: Basophils % (Auto) 0 % (0-2.5); Eosinophils % (Auto) 0 % (0-10); Hematocrit 36.8 % (36.0-46.0); Immature Granulocytes % (Auto) 1 % (0-0); Immature Granulocytes Auto 0.02 Thou/mm3 (0.00-0.00); Lymphocytes # (Auto) 0.5 Thou/mm3 (1.0-4.8); Lymphocytes % (Auto) 14 % (10-50); Mean Corpuscular HGB Conc 32.6 g/dl (31.0-37.0); Mean Corpuscular Hemoglobin 27.3 pg (25.0-35.0); Mean Corpuscular Volume 84 fL (80-100); Monocytes # (Auto) 0.1 Thou/mm3 (0.0-0.8); Monocytes % (Auto) 2 % (0-12); Neutrophils # (Auto) 3.2 Thou/mm3 (1.8-7.7); Neutrophils % (Auto) 83 % (37-80); Nucleated Red Blood Cell # 1.47 Thou/mm3 (0.00-0.00); Nucleated Red Blood Cell % 38 /100 WBC (0); RDW Standard Deviation 49.7 fL (36.4-46.3); White Blood Count 3.9 Thou/mm3 (3.6-11.0)
[2025-02-22 06:01] LABS: Platelet Count 53 Thou/mm3 (140-440)
[2025-02-22 06:22] LABS: Anion Gap 12 (7-16); BUN/Creatinine Ratio 25 Ratio (12-20); Blood Urea Nitrogen 33 mg/dL (9-23); Calcium 7.5 mg/dL (8.3-10.6); Carbon Dioxide 26.4 mMol/L (20.0-31.0); Chloride 112 mMol/L (98-107); Creatinine (Component) 1.3 mg/dL (0.6-1.3); Estimated Creatinine Clearance 19.1 mL/min (>60); Glucose 81 mg/dL (74-106); Osmolality,Calculated 304 (275-295); Phosphorous 4.3 mg/dL (2.4-5.1); Potassium 4.3 mMol/L (3.4-5.1); Sodium 150 mMol/L (136-145); eGFR 40 See Note
[2025-02-22 06:53] LABS: Slide Review Platelets confirmed
[2025-02-22] MEDS: SODIUM CHLORIDE 0.45 % 1,000 ML 50 ML IV (08:00)
--- NOTE | 2025-02-22 08:53 | PC.DIETICIAN ---
Nutrition prescription Jevity 1.5 at 20 ml/hr via PEG tube by pump. Advance 10 ml every 8 hrs to goal rate of 40 ml/hr x 24 hrs. If no IV fluids, water flushes of 30 ml/hr (or per MD).
--- NOTE | 2025-02-22 08:56 | PC.RT ---
Update: EGD is pending.
--- NOTE | 2025-02-22 09:21 | ESPR_ITS ---
<Statement entered by Chniedu Ashley MD - 02/26/25 14:49> I reviewed above note and agree with findings and plans. I have also personally examined the patient with medicine team and went over assessment and plan with medical team including merchandising internship and resident physician. Documentation for date of: 02/22/25 Subjective Subjective Interval history: No acute overnight events noted. Seen and examined at bedside and patient appears lethargic but is resting comfortably. Some leakage noted around recently replaced PEG tube but does not appear to be blood. Otherwise, per report, she did have another bloody bowel movement overnight but also received 3 units pRBC with increase in hemoglobin from 4.7 to 12.0. Pantoprazole drip finished and started on 40 mg IV BID. Pending EGD today for further evaluation. Hemodynamically stable, HR 56, CBC as noted prior and chem panel shows improved renal function. Will start 0.45% NS at 50 cc/hr for Na of 150 and continue with free water flushes after initiating tube feeds after EGD. Exam Vital Signs Temp Pulse Resp BP Pulse Ox O2 Del Method O2 Flow Rate 98.1 F 56 L 20 148/85 H 95 Nasal Cannula 2 02/22/25 08:00 02/22/25 08:00 02/22/25 08:00 02/22/25 08:00 02/22/25 08:00 02/22/25 08:00 02/22/25 08:00 Narrative Exam General: alert, no acute distress, tired, pale HEENT: conjunctival pallor, NC/AT, mucous membranes moist Cardiovascular: regular rate and rhythm, S1/S2 present, no murmurs appreciated Pulmonary: clear to auscultation bilaterally, no rales/rhonchi/wheezes Abdominal: PEG tube C/D/I without bruising or signs of bleeding, soft, non- tender, non-distended, no rebound/guarding, normal bowel sounds present Musculoskeletal: normal ROM, no peripheral edema Skin: petechiae, warm and dry, intact, no rashes Neuro: CN II-XII intact, no focal deficits Objective Labs 02/22/25 12:20 02/22/25 05:24 Labs: Laboratory Results - last 24 hr 02/21/25 02/21/25 02/22/25 14:59 15:30 05:24 WBC 2.9 L 3.9 RBC 1.42 L* 4.40 Hgb 4.7 L* D 12.0 D Hct 15.2 L* 36.8 D MCV 107 H 84 MCH 33.1 27.3 MCHC 30.9 L 32.6 RDW Std Deviation 108.3 H 49.7 H Plt Count 81 L D 53 L D Neut % (Auto) 82 H 83 H Lymph % (Auto) 15 14 [place] % (Auto) 2 2 Eos % (Auto) 0 0 Baso % (Auto) 0 0 Neut # (Auto) 2.4 3.2 Lymph # (Auto) 0.5 L 0.5 L [place] # (Auto) 0.1 0.1 Eos # (Auto) 0.0 0.0 Baso # (Auto) 0.0 0.0 Immature Gran # (Auto) 0.03 H 0.02 H Absolute Nucleated RBC 0.83 H 1.47 H Immature Gran % 1 H 1 H Nucleated RBC % 28 H 38 H PT 14.2 H INR 1.3 APTT 30.7 Sodium 148 H 150 H Potassium 4.7 4.3 Chloride 111 H 112 H Carbon Dioxide 27.8 26.4 Anion Gap 9 12 BUN 43 H 33 H Creatinine 1.7 H 1.3 Estim Creat Clear Calc 15.6 L 19.1 L eGFR 29 L 40 L BUN/Creatinine Ratio 25 H 25 H Glucose 136 H 81 D Calculated Osmolality 307 H 304 H Calcium 7.7 L 7.5 L Corrected Calcium 9.2 Phosphorus 4.3 Magnesium 2.0 Total Bilirubin 0.8 AST 51 H ALT 14 Alkaline Phosphatase 83 Total Protein 5.8 Albumin 2.1 L Globulin 3.7 H Albumin/Globulin Ratio 0.6 L Misc Test Result Platelets confirmed Blood Type A Positive Antibody Screen NEGATIVE Crossmatch See Detail Blood Bank Wristband ID Yes Quality Measures Quality Measures none Advance care planning discussed with:: patient and child Assessment & Plan Assessment Current Active Medications: Generic Name Dose Route Start Last Admin Trade Name Freq PRN Reason Stop Dose Admin Acetaminophen 650 mg 02/21/25 17:06 Acetaminophen 325 Mg Tablet PO 03/23/25 17:05 Q6H PRN PAIN OR FEVER > 100.4 Sodium Chloride 1,000 mls @ 50 mls/hr 02/22/25 07:28 02/22/25 08:00 Ns 0.45% IV 07/02/25 07:27 50 mls/hr .Q20H LAKESHA Administration Ondansetron HCl 4 mg 02/21/25 17:06 Ondansetron Inj 2 Mg/Ml Inj 2 Ml IVP 03/23/25 17:05 Q6H PRN NAUSEA OR VOMITING Protocol Plan Stefani Harris is an 88-year-old Tagalog-speaking female with a past medical history of gastric cancer s/p partial gastrectomy on sunitinib malate (following [facility] oncology) s/p PEG tube, upper GI bleed in 10/2024 from tumor, chronic macrocytic anemia, FTT, and paroxysmal A-fib (no AC secondary to UGIB) who is admitted for acute blood loss anemia. #Acute blood loss anemia, resolved #Acute on chronic macrocytic anemia #History of GI bleed #History of gastric cancer s/p partial gastrectomy on chemotherapy Patient has history of gastric cancer status post partial gastrectomy and followed by [facility] oncology and status post PEG tube placement. Representing for acute blood loss anemia with initial hemoglobin of 4.7. Daughter at bedside states that patient has had large, melanotic bowel movements daily since being discharged on 02/17. Family states that at [facility] found to have a tumor as source of bleeding but not a surgical candidate for embolization. Otherwise denies hemoptysis, hematemesis, hematuria or drainage from recently exchanged PEG tube site. ? GI consulted, appreciate recommendations ? Pending EGD, n.p.o. ? Protonix 40 mg IV BID ? If an additional unit PRBCs needed, will need to transfuse platelets and FFP #Acute kidney injury, likely prerenal in setting of FTT and/or blood loss, improving Baseline creatinine seems to be around 1.2 as values from 10/2024 were in ICU. Now presents with WILLIE as creatinine 1.7, likely secondary to blood loss. ? Trend CMP daily ? Renally dose medications ? Avoid nephrotoxic drugs ? LR at 50 cc/hr -> D5W at 50 cc/hr #Hypertonic hypernatremia Free water deficit of 1.1 L if goal is 140. ? LR at 50 cc/hr -> D5W at 50 cc/hr ? Continue to monitor ? Follow-up repeat Na #PEG tube feedings #History of PEG tube dislodgment ? Registered dietitian referral for after EGD Hospital management: Disposition: pending EGD with Dr. Ledesma Fluids: LR at 50 cc/hr given weight Diet: NPO for future EGD Lines: PIV, PEG tube DVT prophylaxis: SCDs GI prophylaxis: pantoprazole drip CODE STATUS: DNR/DNI ----- Plan discussed with attending physician Dr. Gabi Leal MD PGY-1 Internal Medicine
--- NOTE | 2025-02-22 09:43 | PD.IMCONS ---
HPI Data of Consult Requesting Physician: Chinedu Ashley MD Primary Care Provider: Gopal Dawson MD Consult Narrative Reason for consult: Melena hemoglobin of 4.7 and hematocrit of 15.2 History of present illness: 89 years old female presented emergency room with weakness and melanotic stools Presenting hemoglobin is 4.7 and hematocrit 15.2 with a WBC count of 2.9 Patient has partial gastrectomy done in the past for gastric carcinoma currently on chemotherapy by the [facility] protocol She was recently in the hospital when she had dislodged her PEG tube which I replaced cc:: cc: Chinedu Ashley MD Review of Systems Review of Systems Systems Reviewed: All systems reviewed, normal except as documented Past Medical History Surgical History OTHER SURGICAL HX: As in the history of present illness Meds Home Medications and Allergies Home Medications ?Medication ?Instructions ?Recorded ?Confirmed ?Type sunitinib malate 25 mg capsule 25 mg PO DAILY 08/11/24 02/16/25 History Allergies Allergy/AdvReac Type Severity Reaction Status Date / Time No Known Allergies Allergy Verified 02/21/25 12:35 Exam Vital Signs Temp Pulse Resp BP Pulse Ox O2 Del Method O2 Flow Rate 98.1 F 56 L 20 148/85 H 95 Nasal Cannula 2 02/22/25 08:00 02/22/25 08:00 02/22/25 08:00 02/22/25 08:00 02/22/25 08:00 02/22/25 08:00 02/22/25 08:00 Constitutional Comments: Chronically ill-appearing Routine Respiratory Exam Comments: Normal to auscultation Routine Abdominal Exam Comments: PEG tube in place Results Labs 02/22/25 12:20 02/22/25 05:24 Labs: Short CBC 02/21/25 02/22/25 Range/Units 14:59 05:24 WBC 2.9 L 3.9 (3.6-11.0) Thou/mm3 Hgb 4.7 L* D 12.0 D (12.0-16.0) g/dL Hct 15.2 L* 36.8 D (36.0-46.0) % Plt Count 81 L D 53 L D (140-440) Thou/mm3 BMP 02/21/25 02/22/25 14:59 05:24 Sodium 148 H 150 H Potassium 4.7 4.3 Chloride 111 H 112 H Carbon Dioxide 27.8 26.4 BUN 43 H 33 H Creatinine 1.7 H 1.3 Glucose 136 H 81 D Calcium 7.7 L 7.5 L Liver Function 02/21/25 Range/Units 14:59 Total Bilirubin 0.8 (0.3-1.2) mg/dL AST 51 H (0-34) U/L ALT 14 (10-49) U/L Alkaline Phosphatase 83 (46-116) U/L Albumin 2.1 L (3.4-4.8) gm/dL Assessment and Plan Additional Assessment & Plan Additional Plan: # Acute posthemorrhagic anemia requiring blood transfusion # Gastric carcinoma status post partial resection and anastomosis patient on oral chemotherapy sunitinib # Status postplacement of a PEG tube Plan Consent obtained from the patient's family for fiberoptic esophagogastroduodenoscopy with possible therapeutic intervention under intravenous moderate sedation Will proceed with the procedure Serial CBC IV Protonix In case no lesion found on the upper endoscopy She should have a capsule endoscopy at a tertiary center as she is already currently [facility] will be the most appropriate place to get it
[2025-02-22] MEDS: PANTOPRAZOLE INJ 40 MG VIAL IVP ×2 (10:30→20:04)
[2025-02-22] MEDS: DEXTROSE 5%-WATER 1,000 ML 50 ML IV (10:30)
--- NOTE | 2025-02-22 11:18 | PC.SS ---
CLOUD ENGINEER conducted bedside contact with the patient conduct initial assessment and to discuss discharge planning.? At bedside with patient was daughter, Angie Harris .? Information obtained from patient?s daughter.? Patient resides at home with daughter.? Patient utilizes a walker to assist with ambulation.? Patient does not utilize home oxygen.? Currently on 2L oxygen.? Patient requires assistance with completion of ADL?s.? Patient?s daughter assists the patient.? Patient?s surrogate medical decision maker is daughter, Angie Harris.? Patient?s PCP is Dr. Dawson.? Patient does not participate with dialysis.? Patient is in possession of PEG tube.? [facility] utilized for pharmacy services.? Plan is for the patient to return home at the time of discharge.? Patient is established with [facility], plan is to resume home health services.? If patient requires home oxygen, no preferred vendor identified.? Family will provide transportation on behalf of the patient.? No further discharge needs identified by the patient.? No further intervention required at this time, social welfare clerk will be available to address any further concerns.? Next of Kin: Angie Harris D/C Plan: Home
--- NOTE | 2025-02-22 11:21 | PC.SS ---
Patient's physical address is: [id number] [address] [address].
[2025-02-22 12:44] LABS: Basophils % (Auto) 0 % (0-2.5); Eosinophils % (Auto) 0 % (0-10); Hematocrit 33.4 % (36.0-46.0); Hemoglobin 10.9 g/dL (12.0-16.0); Immature Granulocytes % (Auto) 1 % (0-0); Immature Granulocytes Auto 0.02 Thou/mm3 (0.00-0.00); Lymphocytes # (Auto) 0.6 Thou/mm3 (1.0-4.8); Lymphocytes % (Auto) 19 % (10-50); Mean Corpuscular HGB Conc 32.6 g/dl (31.0-37.0); Mean Corpuscular Hemoglobin 27.5 pg (25.0-35.0); Mean Corpuscular Volume 84 fL (80-100); Monocytes # (Auto) 0.1 Thou/mm3 (0.0-0.8); Monocytes % (Auto) 2 % (0-12); Neutrophils # (Auto) 2.6 Thou/mm3 (1.8-7.7); Neutrophils % (Auto) 78 % (37-80); Nucleated Red Blood Cell # 1.33 Thou/mm3 (0.00-0.00); Nucleated Red Blood Cell % 40 /100 WBC (0); RDW Standard Deviation 51.1 fL (36.4-46.3); Red Blood Count 3.97 Miln/mm3 (4.00-5.20); White Blood Count 3.3 Thou/mm3 (3.6-11.0)
[2025-02-22 12:51] LABS: Platelet Count 52 Thou/mm3 (140-440)
[2025-02-22 13:32] LABS: Slide Review Platelets confirmed
--- NOTE | 2025-02-22 13:48 | SUR.PHASEI ---
1348: Pt. lethargica, doesn't wake to painful stimuli, vitals stable, breathing unlabored, no signs of distress, no dressing in place, no active bleed noted, report received from Carolin WILSON.
[2025-02-22] MEDS: FLUMAZENIL INJ 0.1 MG/ML VIAL 10 ML 0.2 MG IVP (14:01)
--- NOTE | 2025-02-22 14:01 | SUR.PHASEI ---
1401: Pt. not waking to painful stimuli reversal for verced administered. Notified MD Ledesma, Flumazenil ordered by MD Ledesma. After administration, pt. wakes to name then drifts back to sleep.
--- NOTE | 2025-02-22 15:10 | SUR.PHASEI ---
1510: Pt. wakes to name then drifts back to sleep, vitals stable, breathing unlabored, no complaint of pain or nausea, no dressing in place, no active bleed noted, report given to Silvia WILSON prior to transfer to room 263. Family made aware of transfer to room.
[2025-02-22 16:11] LABS: Sodium 149 mMol/L (136-145)
[2025-02-22 20:33] LABS: Sodium 149 mMol/L (136-145)
--- NOTE | 2025-02-22 23:40 | EKG_ITS ---
[facility] Test Date: 2025-02-23 Pat Name: JACOBO MCNEAL [facility] Gender[facility] Female [employer] Social Worker: JEROME : 1935 Requested By: Sulaiman Manning Order Number: [id number] Reading MD: Sulaiman Manning Measurements Intervals [place] Rate: 86 P: 55 MI: 193 QRS: 3 QRSD: 74 T: 31 QT: 346 QTc: 415 Interpretive Statements SINUS RHYTHM WITH OCCASIONAL SUPRAVENTRICULAR PREMATURE COMPLEXES LOW QRS VOLTAGE IN EXTREMITY LEADS NONSPECIFIC T-WAVE ABNORMALITY Compared to ECG 02/21/2025 14:25:45 Low QRS voltage now present T-wave abnormality now present /store/S0/[id number]/ecg/[id number].pdf
--- NOTE | 2025-02-22 23:58 | PC.NURSE ---
MT reported that pt was having Occassional PACs, DR. Araiza was made aware, EKG ordered, New orders for pt, see MAR.
[2025-02-23] VITALS (7 sets, daily range): BP systolic 101–141; BP diastolic 63–79; PULSE 70–100; RESP 14–20; TEMP 36.3–37.2; O2SAT 91–97
[2025-02-23] MEDS: DEXTROSE 5%-WATER 1,000 ML 50 ML IV (02:52)
[2025-02-23 05:38] LABS: Basophils % (Auto) 0 % (0-2.5); Eosinophils % (Auto) 0 % (0-10); Immature Granulocytes % (Auto) 0 % (0-0); Lymphocytes # (Auto) 0.5 Thou/mm3 (1.0-4.8); Lymphocytes % (Auto) 26 % (10-50); Mean Corpuscular HGB Conc 32.8 g/dl (31.0-37.0); Mean Corpuscular Hemoglobin 28.2 pg (25.0-35.0); Mean Corpuscular Volume 86 fL (80-100); Monocytes # (Auto) 0.1 Thou/mm3 (0.0-0.8); Monocytes % (Auto) 3 % (0-12); Neutrophils # (Auto) 1.3 Thou/mm3 (1.8-7.7); Neutrophils % (Auto) 72 % (37-80); Nucleated Red Blood Cell # 0.74 Thou/mm3 (0.00-0.00); Nucleated Red Blood Cell % 42 /100 WBC (0); RDW Standard Deviation 54.4 fL (36.4-46.3); Red Blood Count 2.91 Miln/mm3 (4.00-5.20)
[2025-02-23 05:55] LABS: Anion Gap 8 (7-16); BUN/Creatinine Ratio 29 Ratio (12-20); Blood Urea Nitrogen 35 mg/dL (9-23); Calcium 7.2 mg/dL (8.3-10.6); Carbon Dioxide 28.6 mMol/L (20.0-31.0); Chloride 111 mMol/L (98-107); Creatinine (Component) 1.2 mg/dL (0.6-1.3); Estimated Creatinine Clearance 20.7 mL/min (>60); Glucose 147 mg/dL (74-106); Magnesium 1.9 mg/dL (1.6-2.6); Osmolality,Calculated 305 (275-295); Phosphorous 3.8 mg/dL (2.4-5.1); Potassium 4.2 mMol/L (3.4-5.1); Sodium 148 mMol/L (136-145); eGFR 44 See Note
[2025-02-23 06:12] LABS: White Blood Count 1.8 Thou/mm3 (3.6-11.0)
[2025-02-23 06:14] LABS: Hemoglobin 8.2 g/dL (12.0-16.0); Platelet Count 40 Thou/mm3 (140-440)
[2025-02-23 06:28] LABS: Slide Review Platelets confirmed
--- NOTE | 2025-02-23 07:00 | PC.NURSE ---
pt's wbc 1.8, called [facility] but was unable to get a hold form them. Dayshift rn was made aware
--- NOTE | 2025-02-23 07:38 | PC.NURSE ---
Doctor Elvis made aware of significant amount of bleeding, significant drop in Hgb and WBC. Order received, read back, and carried out.
[2025-02-23 08:24] LABS: Hematocrit 29.7 % (36.0-46.0)
--- NOTE | 2025-02-23 08:37 | PC.NURSE ---
Dr. Leal at bedside to assess pt, orders received, read back, and carried out.
[2025-02-23] MEDS: PANTOPRAZOLE INJ 40 MG VIAL IVP ×2 (09:51→20:47)
[2025-02-23] MEDS: ACETAMINOPHEN 325 MG TABLET 650 MG PO (10:22)
--- NOTE | 2025-02-23 10:38 | PC.NURSE ---
Dr. Leal made aware of H and H, 10.0. no new orders given.
--- NOTE | 2025-02-23 10:42 | PC.NURSE ---
Dr. Krishnan made aware pt is getting 50cc/hr water flushes, order D5W 100ml/hr administer 500 ml. orders received, read back, and carried out.
--- NOTE | 2025-02-23 11:21 | ESPR_ITS ---
<Statement entered by Chinedu Ashley MD - 02/28/25 09:33> I reviewed above note and agree with findings and plans. I have also personally examined the patient with medicine team and went over assessment and plan with medical team including technical internship and resident physician. Documentation for date of: 02/23/25 Subjective Subjective Interval history: No acute overnight events. However, patient did have a large melanotic bowel movement in the morning. AM labs showed drop in hemoglobin from 10.9 to 8.2, however, repeat H&H showed hemoglobin of 10.0. At bedside, patient was resting comfortably and will plan to have a goals of care discussion in the afternoon given that patient continues to bleed and is not a surgical candidate for embolizatoin. Anticipate dishcarge within next 24 hours either to home or home hospice depending on discussion. Otherwise, vital signs stable, Na improving on free water flushes, renal function also improving. Exam Vital Signs Temp Pulse Resp BP Pulse Ox O2 Del Method O2 Flow Rate 97.6 F 85 16 134/79 H 95 Nasal Cannula 2 02/23/25 08:00 02/23/25 08:00 02/23/25 08:00 02/23/25 08:00 02/23/25 08:00 02/23/25 08:00 02/22/25 20:00 Narrative Exam General: alert, no acute distress, tired, pale HEENT: conjunctival pallor, NC/AT, mucous membranes moist Cardiovascular: regular rate and rhythm, S1/S2 present, no murmurs appreciated Pulmonary: clear to auscultation bilaterally, no rales/rhonchi/wheezes Abdominal: PEG tube C/D/I without bruising or signs of bleeding, soft, non- tender, non-distended, no rebound/guarding, normal bowel sounds present Musculoskeletal: normal ROM, no peripheral edema Skin: petechiae, warm and dry, intact, no rashes Neuro: CN II-XII intact, no focal deficits Objective Labs 02/23/25 07:53 02/23/25 04:55 Labs: Laboratory Results - last 24 hr 02/21/25 02/22/25 02/22/25 15:30 12:20 15:39 WBC 3.3 L RBC 3.97 L Hgb 10.9 L Hct 33.4 L MCV 84 MCH 27.5 MCHC 32.6 RDW Std Deviation 51.1 H Plt Count 52 L Neut % (Auto) 78 Lymph % (Auto) 19 [place] % (Auto) 2 Eos % (Auto) 0 Baso % (Auto) 0 Neut # (Auto) 2.6 Lymph # (Auto) 0.6 L [place] # (Auto) 0.1 Eos # (Auto) 0.0 Baso # (Auto) 0.0 Immature Gran # (Auto) 0.02 H Absolute Nucleated RBC 1.33 H Immature Gran % 1 H Nucleated RBC % 40 H Sodium 149 H Potassium Chloride Carbon Dioxide Anion Gap BUN Creatinine Estim Creat Clear Calc eGFR BUN/Creatinine Ratio Glucose Calculated Osmolality Calcium Phosphorus Magnesium Misc Test Result Platelets confirmed Blood Type A Positive Antibody Screen NEGATIVE Crossmatch See Detail Blood Bank Wristband ID Yes 02/22/25 02/23/25 02/23/25 19:55 04:55 07:53 WBC 1.8 L D RBC 2.91 L Hgb 8.2 L D 10.0 L D Hct 25.0 L 29.7 L MCV 86 MCH 28.2 MCHC 32.8 RDW Std Deviation 54.4 H Plt Count 40 L D Neut % (Auto) 72 Lymph % (Auto) 26 [place] % (Auto) 3 Eos % (Auto) 0 Baso % (Auto) 0 Neut # (Auto) 1.3 L Lymph # (Auto) 0.5 L [place] # (Auto) 0.1 Eos # (Auto) 0.0 Baso # (Auto) 0.0 Immature Gran # (Auto) 0.00 Absolute Nucleated RBC 0.74 H Immature Gran % 0 Nucleated RBC % 42 H Sodium 149 H 148 H Potassium 4.2 Chloride 111 H Carbon Dioxide 28.6 Anion Gap 8 BUN 35 H Creatinine 1.2 Estim Creat Clear Calc 20.7 L eGFR 44 L BUN/Creatinine Ratio 29 H Glucose 147 H D Calculated Osmolality 305 H Calcium 7.2 L Phosphorus 3.8 Magnesium 1.9 Misc Test Result Platelets confirmed Blood Type Antibody Screen Crossmatch Blood Bank Wristband ID Quality Measures Quality Measures none Advance care planning discussed with:: patient and child Assessment & Plan Assessment Current Active Medications: Generic Name Dose Route Start Last Admin Trade Name Freq PRN Reason Stop Dose Admin Acetaminophen 650 mg 02/21/25 17:06 02/23/25 10:22 Acetaminophen 325 Mg Tablet PO 03/23/25 17:05 650 mg Q6H PRN Administration PAIN OR FEVER > 100.4 Balsam [place] Oil 0 gm 02/23/25 21:00 Balsam [place] Oil (Venelex) 60 Gm Tube TOP 03/25/25 20:59 BID LAKESHA Dextrose 1,000 mls @ 100 mls/hr 02/23/25 10:38 D5w IV 02/23/25 15:29 .Q10H LAKESHA Ondansetron HCl 4 mg 02/21/25 17:06 Ondansetron Inj 2 Mg/Ml Inj 2 Ml IVP 03/23/25 17:05 Q6H PRN NAUSEA OR VOMITING Protocol Pantoprazole Sodium 40 mg 02/22/25 09:30 02/23/25 09:51 Pantoprazole Inj 40 Mg Vial IVP 03/24/25 09:29 40 mg BID LAKESHA Administration Plan Stefani Harris is an 88-year-old Tagalog-speaking female with a past medical history of gastric cancer s/p partial gastrectomy on sunitinib malate (following [facility] oncology) s/p PEG tube, upper GI bleed in 10/2024 from tumor, chronic macrocytic anemia, FTT, and paroxysmal A-fib (no AC secondary to UGIB) who is admitted for acute blood loss anemia. #Acute blood loss anemia, resolved #Acute on chronic macrocytic anemia #History of GI bleed #History of gastric cancer s/p partial gastrectomy on chemotherapy Patient has history of gastric cancer status post partial gastrectomy and followed by [facility] oncology and status post PEG tube placement. Representing for acute blood loss anemia with initial hemoglobin of 4.7. Daughter at bedside states that patient has had large, melanotic bowel movements daily since being discharged on 02/17. Family states that at [facility] found to have a tumor as source of bleeding but not a surgical candidate for embolization. Otherwise denies hemoptysis, hematemesis, hematuria or drainage from recently exchanged PEG tube site. ? GI consulted, appreciate recommendations ? Pending EGD, n.p.o. ? Protonix 40 mg IV BID ? If an additional unit PRBCs needed, will need to transfuse platelets and FFP ? Holding chemotherapy agent, sunitinib malate, as patient continues to have GI bleed #Acute kidney injury, likely prerenal in setting of FTT and/or blood loss, improving Baseline creatinine seems to be around 1.2 as values from 10/2024 were in ICU. Now presents with WILLIE as creatinine 1.7, likely secondary to blood loss. ? Trend CMP daily ? Renally dose medications ? Avoid nephrotoxic drugs ? 500 cc D5W #Hypertonic hypernatremia Free water deficit of 1.1 L if goal is 140. ? 500 cc D5W ? Free water flushes 50 cc/hr ? Continue to monitor #PEG tube feedings #History of PEG tube dislodgment ? PEG tube feedings Hospital management: Disposition: goals of care discussion with family Fluids: 500 cc of D5W Diet: tube feedings Lines: PIV, PEG tube DVT prophylaxis: SCDs GI prophylaxis: pantoprazole drip CODE STATUS: DNR/DNI ----- Plan discussed with attending physician Dr. Gabi Leal MD PGY-1 Internal Medicine
--- NOTE | 2025-02-23 11:39 | PC.SS ---
Addendum entered by PAULO Noyola 02/23/25 15:52: SS update: Goals of care discussion held with patient's family at bedside and resident Dr. Lopez Leal. Medical update and information on hospice services were provided to the family. Family has currently declined hospice services at this time. They inform they will discuss with other family members as to the services. Patient previously aligned with [facility] and current plan is to continue with their services. Patient currently requiring blood transfusions. Family was provided with hospice resources and advance directive. Hospice agency of the day: [facility] informed they would not be able to accommodate services for a patient with continued need for blood transfusions. [facility] was also contacted, and pending response from them if this is something they could accommodate as family would like to know. Bed side RN-Chanell was updated. Original Note: SS update: Goals of care discussion with patient and family this afternoon.
--- NOTE | 2025-02-23 11:46 | ESPR_ITS ---
Documentation for date of: 02/23/25 Subjective Subjective Interval history: Downward trending hemoglobin hematocrit to 8.3 and 24.0 Patient definitely needs a capsule endoscopy for further evaluation management Exam Vital Signs Temp Pulse Resp BP Pulse Ox O2 Del Method O2 Flow Rate 97.6 F 85 16 134/79 H 95 Nasal Cannula 2 02/23/25 08:00 02/23/25 08:00 02/23/25 08:00 02/23/25 08:00 02/23/25 08:00 02/23/25 08:00 02/22/25 20:00 Objective Labs 02/23/25 16:26 02/23/25 04:55 Labs: Laboratory Results - last 24 hr 02/21/25 02/22/25 02/22/25 15:30 12:20 15:39 WBC 3.3 L RBC 3.97 L Hgb 10.9 L Hct 33.4 L MCV 84 MCH 27.5 MCHC 32.6 RDW Std Deviation 51.1 H Plt Count 52 L Neut % (Auto) 78 Lymph % (Auto) 19 [place] % (Auto) 2 Eos % (Auto) 0 Baso % (Auto) 0 Neut # (Auto) 2.6 Lymph # (Auto) 0.6 L [place] # (Auto) 0.1 Eos # (Auto) 0.0 Baso # (Auto) 0.0 Immature Gran # (Auto) 0.02 H Absolute Nucleated RBC 1.33 H Immature Gran % 1 H Nucleated RBC % 40 H Sodium 149 H Potassium Chloride Carbon Dioxide Anion Gap BUN Creatinine Estim Creat Clear Calc eGFR BUN/Creatinine Ratio Glucose Calculated Osmolality Calcium Phosphorus Magnesium Misc Test Result Platelets confirmed Blood Type A Positive Antibody Screen NEGATIVE Crossmatch See Detail Blood Bank Wristband ID Yes 02/22/25 02/23/25 02/23/25 19:55 04:55 07:53 WBC 1.8 L D RBC 2.91 L Hgb 8.2 L D 10.0 L D Hct 25.0 L 29.7 L MCV 86 MCH 28.2 MCHC 32.8 RDW Std Deviation 54.4 H Plt Count 40 L D Neut % (Auto) 72 Lymph % (Auto) 26 [place] % (Auto) 3 Eos % (Auto) 0 Baso % (Auto) 0 Neut # (Auto) 1.3 L Lymph # (Auto) 0.5 L [place] # (Auto) 0.1 Eos # (Auto) 0.0 Baso # (Auto) 0.0 Immature Gran # (Auto) 0.00 Absolute Nucleated RBC 0.74 H Immature Gran % 0 Nucleated RBC % 42 H Sodium 149 H 148 H Potassium 4.2 Chloride 111 H Carbon Dioxide 28.6 Anion Gap 8 BUN 35 H Creatinine 1.2 Estim Creat Clear Calc 20.7 L eGFR 44 L BUN/Creatinine Ratio 29 H Glucose 147 H D Calculated Osmolality 305 H Calcium 7.2 L Phosphorus 3.8 Magnesium 1.9 Misc Test Result Platelets confirmed Blood Type Antibody Screen Crossmatch Blood Bank Wristband ID Impressions Impression: Occult GI bleeding Gastritis Duodenitis Will speak with the family about the options have to get the capsule endoscopy Inpatient transit will be very difficult to get a bed at [facility] Assessment & Plan A&P Narrative # Acute posthemorrhagic anemia requiring blood transfusion # Gastric carcinoma status post partial resection and anastomosis patient on oral chemotherapy sunitinib # Status postplacement of a PEG tube Plan Consent obtained from the patient's family for fiberoptic esophagogastroduodenoscopy with possible therapeutic intervention under intravenous moderate sedation Will proceed with the procedure Serial CBC IV Protonix In case no lesion found on the upper endoscopy She should have a capsule endoscopy at a tertiary center as she is already currently [facility] will be the most appropriate place to get it Time Spent With Patient Time: Total time spent is greater than 50% in coordination of care (as documented) at patient's floor/unit and/or counseling patient:
--- NOTE | 2025-02-23 14:54 | PC.PT ---
PT eval witheld. There will be a goals of care discussion this afternoon with family.
--- NOTE | 2025-02-23 16:28 | PC.CM ---
Patient is opened to [facility] health. She will need home health orders placed is she is to return home.
[2025-02-23 16:41] LABS: Hematocrit 26.1 % (36.0-46.0)
[2025-02-23 16:44] LABS: Hemoglobin 8.2 g/dL (12.0-16.0)
--- NOTE | 2025-02-23 16:48 | PC.NURSE ---
DR. RINCON MADE AWARE OF H AND H RESULTS. ORDERS RECEIVED, READ BACK AND CARRIED OUT.
[2025-02-23] MEDS: BALSAM PERU/CASTOR OIL (Venelex) 60 GM TUBE TOP (20:47)
[2025-02-24] VITALS: BP 117/64; PULSE 96; RESP 15; TEMP 37.1; O2SAT 93
--- NOTE | 2025-02-24 00:53 | PC.NURSE ---
Called Dr. Sparks to inform that patient had significant amount of bloody stool, to put H/H order, will continue to monitor.
[2025-02-24 01:49] LABS: Hematocrit 27.5 % (36.0-46.0)
[2025-02-24 01:50] LABS: Hemoglobin 8.6 g/dL (12.0-16.0)
[2025-02-24 04:00] VITALS: BP 116/59; PULSE 100; PULSE 99; RESP 16; TEMP 37.2; O2SAT 92
[2025-02-24 05:42] LABS: Basophils % (Auto) 0 % (0-2.5); Eosinophils # (Auto) 0.1 Thou/mm3 (0.0-0.5); Eosinophils % (Auto) 2 % (0-10); Hematocrit 34.4 % (36.0-46.0); Hemoglobin 11.4 g/dL (12.0-16.0); Immature Granulocytes % (Auto) 0 % (0-0); Immature Granulocytes Auto 0.01 Thou/mm3 (0.00-0.00); Lymphocytes # (Auto) 1.3 Thou/mm3 (1.0-4.8); Lymphocytes % (Auto) 20 % (10-50); Mean Corpuscular HGB Conc 33.1 g/dl (31.0-37.0); Mean Corpuscular Hemoglobin 27.7 pg (25.0-35.0); Mean Corpuscular Volume 84 fL (80-100); Monocytes # (Auto) 0.6 Thou/mm3 (0.0-0.8); Monocytes % (Auto) 10 % (0-12); Neutrophils # (Auto) 4.5 Thou/mm3 (1.8-7.7); Neutrophils % (Auto) 69 % (37-80); Nucleated Red Blood Cell % 0 /100 WBC (0); Platelet Count 337 Thou/mm3 (140-440); Red Blood Count 4.12 Miln/mm3 (4.00-5.20); White Blood Count 6.5 Thou/mm3 (3.6-11.0)
[2025-02-24 06:00] VITALS: BMI 16.7
[2025-02-24 06:37] LABS: Anion Gap 10 (7-16); BUN/Creatinine Ratio 12 Ratio (12-20); Blood Urea Nitrogen 7 mg/dL (9-23); Calcium 8.5 mg/dL (8.3-10.6); Carbon Dioxide 29.3 mMol/L (20.0-31.0); Chloride 106 mMol/L (98-107); Creatinine (Component) 0.6 mg/dL (0.6-1.3); Glucose 105 mg/dL (74-106); Magnesium 1.8 mg/dL (1.6-2.6); Osmolality,Calculated 286 (275-295); Phosphorous 3.3 mg/dL (2.4-5.1); Potassium 4.2 mMol/L (3.4-5.1); Sodium 145 mMol/L (136-145); eGFR > 60 See Note
[2025-02-24 08:00] VITALS: BP 128/71; PULSE 108; PULSE 109; RESP 18; TEMP 36.6; O2SAT 90
[2025-02-24] MEDS: PANTOPRAZOLE INJ 40 MG VIAL IVP (08:35)
[2025-02-24] MEDS: BALSAM PERU/CASTOR OIL (Venelex) 60 GM TUBE TOP (08:35)
--- NOTE | 2025-02-24 09:02 | PC.SS ---
Addendum entered by PAULO Noyola 02/24/25 15:52: Updated patient's daughter Angie on transport ETA. Addendum entered by Estrella Solis CHEMICAL PROCESS PROJECT ENGINEER 02/24/25 15:50: [facility] ETA is 1999. Updated bedside-RN Lucio and Jackelyn with [facility]. [facility] dispatch informs they can notate the patient is ready now to identify for sooner pick-up if there is an sooner transport opening. Bed side RN and hospice agency aware. Nursing station contact provided to dispatch. Addendum entered by PAULO Noyola 02/24/25 14:22: [facility] transport reference number: [id number]. Pending transport company ETA. Addendum entered by PAULO Noyola 02/24/25 14:22: Hospice referral sent via [facility] to [facility]. Addendum entered by PAULO Noyola 02/24/25 12:37: SS update: Jackelyn with [facility] was updated. Pending hospice order to send via [employer]. Jackelyn aware the patient will need home 02. Addendum entered by PAULO Noyola 02/24/25 12:32: SS follow up: family is agreeable with [facility]. Pending hospice order. Original Note: SS follow up: spoke with patient's family to confirm the d/c plan. Patient's family discussing choices between [facility] and [facility]. Family is aware should hospice be declined, then 02 will need to be ordered for the patient to return home, if hospice is decided then the hospice agency will provide the 02. Family is aware and will update social worker assistant on their decision.
--- NOTE | 2025-02-24 11:03 | ESDS_ITS ---
<Statement entered by Chinedu Ashley MD - 03/04/25 13:33> I reviewed above note and agree with findings and plans. I have also personally examined the patient with medicine team and went over assessment and plan with medical team including software engineer intern and resident physician. Planned Discharge Date 02/24/25 DS: Providers Provider Date of admission: 02/22/25 08:04 Primary care physician: Gopal Dawson MD Admitting Provider: Chinedu Ashley MD Attending Provider on Admission: Chinedu Ashley MD Consults: 02/21/25 16:44 Consult to Gastroenterology Stat Comment: Consulting Provider: Kimo Ledesma 02/21/25 17:11 Referral Registered Dietitian Routine Comment: PEG tube feedings for after EGD 02/21/25 19:19 Referral Physical Therapy Routine Comment: Physician Instructions: 02/22/25 06:30 Referral Wound Care Routine Comment: Attending Provider on DC: Rodolfo Leal MD Discharging Provider: Rodolfo Leal MD DS: Diagnosis Problem List Completed Was Problem List Reviewed/Reconciled?: Yes Hospital Course Hospital Course Hospital course: Stefani Harris is an 88-year-old Tagalog-speaking female with a past medical history of gastric cancer s/p partial gastrectomy on sunitinib malate (following [facility] oncology) s/p PEG tube, recurrent upper GI bleed from tumor, chronic macrocytic anemia, FTT, and paroxysmal A-fib (no AC secondary to UGIB) who is admitted for acute blood loss anemia requiring transfusion. Recently discharged on 02/17 for PEG tube dislodgment that was then replaced by Dr. Ledesma without complications. During that admission hemoglobin dropped from 7.9 to 6.9 and was transfused 1 unit PRBC then increased to 9.5 and was discharged with hemoglobin 9.2. However, per daughter at bedside, since discharge patient has had large bloody bowel movements every day and has noticed patient becoming weaker and pale and brought her to the ED. Upon arrival, labs showed hemoglobin of 4.7 and hematocrit of 15. Hemodynamically stable at 108/59, heart rate 97, saturating 93% on room air. Dr. Ledesma was consulted from ED and states that he plans to do an EGD for further evaluation and recommended starting Protonix drip. 3 units PRBC transfused and hemoglobin increased to 12. Throughout hospital course, hemoglobin did downtrend but flucuated and patient was noted to have multiple, large melanotic bowel movements but did not require a 4th unit of blood. She did undergo EGD but did not reveal an obvious source of bleeding, just small erions near gastrostomy tube, moderate gastritis and duodenitis. Dr. Ledesma recommended to undergo capsule endoscopy. However, given patient's recurrent episodes of melanotic stools and poor prognosis, goals of care discussion took place and options regarding hospice versus continuing current management were explored at length. Family discussed amongst themselves and also explored options with hospice and what they will allow and decided to continue with hospice. Thus, patient will be discharged back to home with hospice at this time. Diagnoses during admission: #Acute blood loss anemia, resolved #Acute on chronic macrocytic anemia #History of GI bleed #History of gastric cancer s/p partial gastrectomy on chemotherapy #Acute kidney injury, likely prerenal in setting of FTT and/or blood loss, improving #Hypertonic hypernatremia #PEG tube feedings #History of PEG tube dislodgment Discharge instructions: ? Continue taking all other home medications as prescribed ? Follow-up with PCP within 1-2 weeks of discharge ? Follow-up with [facility] oncology for capsule endoscopy and discuss whether or not to continue your chemotherapy agent ? Return to ED if symptoms worsen or recur ----- Plan discussed with attending physician Dr. Gabi Leal MD PGY-1 Internal Medicine Time Spent with Patient Time attestation: Total time spent providing and/or coordinating discharge services: Time spent: Greater than 30 minutes Home Health Home Health Referral Orders: Stefani Harris is an 88-year-old Tagalog-speaking female with a past medical history of gastric cancer s/p partial gastrectomy on sunitinib malate (following [facility] oncology) s/p PEG tube, recurrent upper GI bleed from tumor, chronic macrocytic anemia, FTT, and paroxysmal A-fib (no AC secondary to UGIB) who is admitted for acute blood loss anemia requiring transfusion. Recently discharged on 02/17 for PEG tube dislodgment that was then replaced by Dr. Ledesma without complications. During that admission hemoglobin dropped from 7.9 to 6.9 and was transfused 1 unit PRBC then increased to 9.5 and was discharged with hemoglobin 9.2. However, per daughter at bedside, since discharge patient has had large bloody bowel movements every day and has noticed patient becoming weaker and pale and brought her to the ED. Upon arrival, labs showed hemoglobin of 4.7 and hematocrit of 15. Hemodynamically stable at 108/59, heart rate 97, saturating 93% on room air. Dr. Ledesma was consulted from ED and states that he plans to do an EGD for further evaluation and recommended starting Protonix drip. 3 units PRBC transfused and hemoglobin increased to 12. Throughout hospital course, hemoglobin did downtrend but flucuated and patient was noted to have multiple, large melanotic bowel movements but did not require a 4th unit of blood. She did undergo EGD but did not reveal an obvious source of bleeding, just small erions near gastrostomy tube, moderate gastritis and duodenitis. Dr. Ledesma recommended to undergo capsule endoscopy. However, given patient's recurrent episodes of melanotic stools and poor prognosis, goals of care discussion took place and options regarding hospice versus continuing current management were explored at length. Family discussed amongst themselves and also explored options with hospice and what they will allow and decided to continue with hospice. Thus, patient will be discharged back to home with hospice at this time. Diagnoses during admission: Discharge instructions: ----- Plan discussed with attending physician Dr. Gabi Leal MD PGY-1 Internal Medicine Exam Vital Signs Temp Pulse Resp BP Pulse Ox O2 Del Method O2 Flow Rate 97.9 F 108 H 18 128/71 90 L Nasal Cannula 2 02/24/25 08:00 02/24/25 08:00 02/24/25 08:00 02/24/25 08:00 02/24/25 08:00 02/24/25 08:00 02/24/25 08:00 Narrative Exam General: alert, no acute distress, tired, pale HEENT: conjunctival pallor, NC/AT, mucous membranes moist Cardiovascular: regular rate and rhythm, S1/S2 present, no murmurs appreciated Pulmonary: clear to auscultation bilaterally, no rales/rhonchi/wheezes Abdominal: PEG tube C/D/I without bruising or signs of bleeding, soft, non- tender, non-distended, no rebound/guarding, normal bowel sounds present Musculoskeletal: normal ROM, no peripheral edema Skin: petechiae, warm and dry, intact, no rashes Neuro: CN II-XII intact, no focal deficits Discharge Plan Plan Patient Disposition: Home w/HOSPICE Care Plan Goals: ? Continue taking all other home medications as prescribed ? Follow-up with PCP within 1-2 weeks of discharge ? Follow-up with [facility] oncology for capsule endoscopy and discuss whether or not to continue your chemotherapy agent ? Return to ED if symptoms worsen or recur Prescriptions/Referrals Prescriptions/Med Rec: Continued sunitinib malate 25 mg capsule 25 mg PO DAILY Referrals: Gopal Dawson MD [Primary Care Provider] - Patient/Caregiver Discharge Instructions Print Language: Amharic Stand Alone Forms: [facility]alia Award Info., Patient Portal Info Letter Discharge Order Discharge Orders: Discharge (Routine); Ordered 02/24/25 Ordered By: Rodolfo Marroquin [facility] Quality Discharge Quality Measures VTE prophylaxis
--- NOTE | 2025-02-24 11:48 | PC.PT ---
Patient was approached 2x for PT evaluation at 9:30 and at 10:30 but patient refused PT both attempts. Patient did not want to work or attempt ambulating with the patient today. RN made aware.
[2025-02-24 12:00] VITALS: BP 108/72; PULSE 117; RESP 17; TEMP 36.3; O2SAT 97
--- NOTE | 2025-02-24 13:33 | ESPR_ITS ---
Documentation for date of: 02/24/25 Subjective Subjective Interval history: Hemoglobin hematocrit 11.4 and 34.1 Patient needs a capsule endoscopy I can see the patient back in the office next week discharge and then schedule a capsule endoscopy at [facility] Exam Vital Signs Temp Pulse Resp BP Pulse Ox O2 Del Method O2 Flow Rate 97.9 F 117 H 18 128/71 90 L Nasal Cannula 2 02/24/25 08:00 02/24/25 12:00 02/24/25 08:00 02/24/25 08:00 02/24/25 08:00 02/24/25 08:00 02/24/25 08:00 Objective Labs 02/24/25 04:12 02/24/25 04:12 Labs: Laboratory Results - last 24 hr 02/21/25 02/23/25 02/24/25 15:30 16:26 01:18 WBC RBC Hgb 8.2 L 8.6 L Hct 26.1 L 27.5 L MCV MCH MCHC RDW Std Deviation Plt Count Neut % (Auto) Lymph % (Auto) [place] % (Auto) Eos % (Auto) Baso % (Auto) Neut # (Auto) Lymph # (Auto) [place] # (Auto) Eos # (Auto) Baso # (Auto) Immature Gran # (Auto) Absolute Nucleated RBC Immature Gran % Nucleated RBC % Sodium Potassium Chloride Carbon Dioxide Anion Gap BUN Creatinine Estim Creat Clear Calc eGFR BUN/Creatinine Ratio Glucose Calculated Osmolality Calcium Phosphorus Magnesium Blood Bank Comment PLATP Ready 02/24/25 04:12 WBC 6.5 D RBC 4.12 Hgb 11.4 L D Hct 34.4 L MCV 84 MCH 27.7 MCHC 33.1 RDW Std Deviation 44.0 Plt Count 337 D Neut % (Auto) 69 Lymph % (Auto) 20 [place] % (Auto) 10 Eos % (Auto) 2 Baso % (Auto) 0 Neut # (Auto) 4.5 Lymph # (Auto) 1.3 [place] # (Auto) 0.6 Eos # (Auto) 0.1 Baso # (Auto) 0.0 Immature Gran # (Auto) 0.01 H Absolute Nucleated RBC 0.00 Immature Gran % 0 Nucleated RBC % 0 Sodium 145 Potassium 4.2 Chloride 106 Carbon Dioxide 29.3 Anion Gap 10 BUN 7 L Creatinine 0.6 D Estim Creat Clear Calc 41.0 L eGFR > 60 BUN/Creatinine Ratio 12 Glucose 105 Calculated Osmolality 286 Calcium 8.5 Phosphorus 3.3 Magnesium 1.8 Blood Bank Comment Impressions Impression: GI bleeding most likely source of bleeding is small bowel Capsule endoscopy as an outpatient Assessment & Plan A&P Narrative # Acute posthemorrhagic anemia requiring blood transfusion # Gastric carcinoma status post partial resection and anastomosis patient on oral chemotherapy sunitinib # Status postplacement of a PEG tube Plan Consent obtained from the patient's family for fiberoptic esophagogastroduodenoscopy with possible therapeutic intervention under intravenous moderate sedation Will proceed with the procedure Serial CBC IV Protonix In case no lesion found on the upper endoscopy She should have a capsule endoscopy at a tertiary center as she is already currently [facility] will be the most appropriate place to get it Time Spent With Patient Time: Total time spent is greater than 50% in coordination of care (as documented) at patient's floor/unit and/or counseling patient:
--- NOTE | 2025-02-24 14:50 | PC.NURSE ---
made aware pt HR went as high as 149. pt sustained ST 140's for a few minutes, the pt has been tachy in the 110's today. BP 109/69, pt stable. no orders given at this time. Will continue to monitor
[2025-02-24] MEDS: RINGERS LACTATED 1000 ML 250 ML 999 ML IV (14:58)
[2025-02-24 16:00] VITALS: BP 120/84; PULSE 123; PULSE 124; RESP 21; TEMP 36.1; O2SAT 97
[2025-02-24 20:00] VITALS: BP 97/67; PULSE 129; RESP 23; TEMP 36.9; O2SAT 97
--- NOTE | 2025-02-25 09:15 | PC.CC ---
pt is discharged home with [facility]. HH referral is canceled.
== END 2025-02-24 20:20 | disposition hospice, home (50) | DRG 378 ==
LOC: SERX 16:57 → SERHOLD 02-22 08:06 → S2NX 02-22 08:06 → S3SX 02-22 21:59
PROVIDERS: Specialist; Student in an Organized Health Care Education/Training Program; Admitting Provider Internal Medicine; Emergency Provider Emergency Medicine; PCP Family Medicine; Visit Provider Internal Medicine
PROC: 0DJ08ZZ Inspection of Upper Intestinal Tract, Via Natural or Artificial Opening Endoscopic (ICD-10-PCS; CPT 43239; principal; 2025-02-22 13:30)
DX: K29.71 Gastritis, unspecified, with bleeding (principal); C16.9 Malignant neoplasm of stomach, unspecified; D62 Acute posthemorrhagic anemia; N17.9 Acute kidney failure, unspecified; E87.0 Hyperosmolality and hypernatremia; I48.0 Paroxysmal atrial fibrillation; R62.7 Adult failure to thrive; Z85.028 Personal history of other malignant neoplasm of stomach; K29.81 Duodenitis with bleeding; Z93.1 Gastrostomy status; Z90.3 Acquired absence of stomach [part of]; Z66 Do not resuscitate; D53.9 Nutritional anemia, unspecified
CPT/HCPCS: 36415; 36430; 80048; 80053; 83735; 84100; 84295; 85014; 85018; 85025; 85610; 85730; 86850; 86900; 86901; 86902; 86921; 86922; 86927; 86965; 93005; 93225; 96374; 99285; G0378; J1200; J2250; J2470; J3010; J3490; J7030; J7070; J7120; P9016; A9270

== ENCOUNTER 2025-03-08 01:32 | Emergency (ER) | payer MEDICARE, MEDICAID, SELFPAY ==
--- NOTE | 2025-03-08 01:35 | PC.NURSE ---
@130:PT BIB EMS WITH C/O GENERALIZED WEAKNESS WORSENING, AND POOR APPETITE. PER EMS PT IS ON HOSPICE AND IS A DNR, PT SON WHO IS AT BEDSIDE REQUESTED PT TO BE SENT TO ER DO TO WEAKNESS AND LETHARGY INCREASING. PER EMS ON SCENE PT HAD HR IN 20'S, WITH RESPIRATIONS 5 BPM. ON ARRIVAL TO ER, PT WAS ASYSTOLE ON MONITOR. DR CARROLL ASSESSED AT AMBULANCE [facility] AND PRONOUNCED TOD @0131. PT PLACED IN ROOM 6. PT PLACED ON MONITOR. VITALS ATTEMPTED, BUT UNSUCCESSFUL. SON AT BEDSIDE AND PROVIDER CARLY EXPLAINED PLAN TO SON WHO VERBALLY STATED HE UNDERSTOOD. ALL QUESTIONS AND CONCERNS ANSWERED.
--- NOTE | 2025-03-08 01:38 | PD.EDWEAK ---
ED Weakness RME/HPI General Chief complaint: Arrhythmia/Palpitations Stated complaint: WEANESS Time Seen by Provider: 03/08/25 01:36 Arrival date/time: 03/08/25 01:32 RME / HPI RME / HPI Narrative: This section includes all my notes and documentations, including HPI, PE, and ED course. Travon Crews MD HPI: 89yo female with a history of gastric CA s/p partial gastrectomy s/p PEG tube, recurrent upper GI bleed from tumor, chronic macrocytic anemia, FTT, aFib, on hospice BIBA from home presents to the ED for a chief complaint of worsening weakness. Per EMS, patient's son requested the patient to be sent over due to being extremely lethargic and not eating through her G-tube for the last 7 days. Patient is a DNR on comfort measures. Can't obtain any history from the patient due to no responsiveness. ROS: Can't obtain any history from the patient due to no responsiveness. Physical Exam: General: No responsiveness. Heart: No cardiac activity. Lungs: No spontaneous respiration. Neuro: GCS 3. I reviewed EMS notes. Patient . Rest in peace. Travon Crews MD Related Data Home Medications ?Medication ?Instructions ?Recorded ?Confirmed sunitinib malate 25 mg capsule 25 mg PO DAILY 08/11/24 02/23/25 Allergies Allergy/AdvReac Type Severity Reaction Status Date / Time No Known Allergies Allergy Verified 02/21/25 12:35 Review of Systems Review of Systems ROS Unobtainable: unobtainable due to medical condition ED Exam Narrative Physical exam: As noted in HPI. Course Quality Measures none Weakness MDM Narrative MDM Narrative:: Scribe Attestation: 03/08/25 Hui Green am scribing for and in the presence of Dr. Crews. 89yo female with a history of gastric CA s/p partial gastrectomy s/p PEG tube, recurrent upper GI bleed from tumor, chronic macrocytic anemia, FTT, aFib, on hospice BIBA from home presents to the ED for a chief complaint of worsening weakness. Per EMS, patient's son requested the patient to be sent over due to being extremely lethargic and not eating through her G-tube for the last 7 days. Patient is a DNR on comfort measures. Can't obtain any history from the patient due to no responsiveness. Patient data External records reviewed:: [facility] previous records (Per chart review, patient was admitted here on 02/21/25 for Severe anemia and Upper GI bleed.) and Other (specify) (Per POL, patient is a DNR on comfort measures.) Clinical information provided by:: EMS Social determinants that could affect healthcare access:: housing (on hospice) Patient has the following chronic illnesses:: gastric CA s/p partial gastrectomy s/p PEG tube, recurrent upper GI bleed from tumor, chronic macrocytic anemia, FTT, aFib How is presenting disease/condition affected by chronic disease/condition?: caused by Evaluation data The following diagnostics were reviewed and interpreted by me:: other (specify) (none) Lab and/or radiology exams considered but not ordered:: none Interpretation Summary: none Medications / Prescriptions Medications or Prescriptions considered but not ordered:: none Medication administrations:: none Consultations Consultation(s) initiated? (list below): No Diagnosis Weakness Differential Diagnosis: acute myocardial infarction, anemia, hypoglycemia, hypothyroidism, rhabdomyolysis, sepsis and dehydration Most likely diagnosis given after review of the tests above:: Cardiac arrest Admission Indicated Admission indicated?: not indicated Explain why admission is indicated or not indicated:: Patient . Admission Request Was there a request for admission?: No Disposition Plan Disposition Plan: other (specify) (Patient .) Discharge Plan Plan Patient Disposition: Problem List Clinical Impression: Cardiac arrest Patient/Caregiver Discharge Instructions Print Language: Luxembourgish
[2025-03-08 01:45] VITALS: BP 0/0; PULSE 0; RESP 0; O2SAT 0; BMI 16.6
--- NOTE | 2025-03-08 01:56 | PC.NURSE ---
CALLED [facility] TO INFORMED THEM OF PT .
--- NOTE | 2025-03-08 02:50 | PC.NURSE ---
HOME AT BEDSIDE PICKING UP PT AT THIS TIME.
== END 2025-03-08 03:14 | disposition expired ==
LOC: SERX 02:55
PROVIDERS: Emergency Provider Emergency Medicine
DX: I46.9 Cardiac arrest, cause unspecified (principal); Z66 Do not resuscitate; Z93.1 Gastrostomy status; Z90.3 Acquired absence of stomach [part of]
CPT/HCPCS: 99283